=== PATIENT | female | born 1985 | race Caucasian/White ===

== ENCOUNTER → 2016-12-16 | Outpatient (CLI) | payer OTHER ==
[~2016-12-16] MED LIST: ALBUAER2 INH; FEXO1TAB49 PO; ONDA4TAB46 PO; PRENTAB26 PO
--- NOTE | 2016-12-16 08:34 | DIAGNOSTIC IMAGING REPORT ---
ULTRASOUND RIGHT UPPER QUADRANT ABDOMEN CLINICAL HISTORY: Right upper quadrant abdominal pain. COMPARISON STUDY: No priors. TECHNIQUE: Real-time, grayscale, and color flow sonography of the right upper quadrant of the abdomen was performed. Images are reviewed in the transverse and longitudinal planes. FINDINGS: Liver: The liver is normal in size and echotexture. There is no intrahepatic biliary ductal dilatation. The main portal vein is patent. Gallbladder: The gallbladder is normal in appearance. No gallstones are identified. There is no gallbladder wall thickening or pericholecystic fluid. A sonographic Mayer's sign is reportedly absent. The common bile duct measures up to 0.4 cm in diameter. Pancreas: Visualized portions of the pancreatic head and body are normal in appearance. Right kidney: Survey images of the right kidney demonstrate normal size and echotexture. There is no hydronephrosis. Ascites: None. IMPRESSION: Unremarkable sonographic assessment of the right upper quadrant. No gallstones are identified. Electronically signed by: John Jerry M.D. 12/16/2016 8:33 AM Dictated Date/Time: 12/16/2016 8:32 AM
== END | disposition home or self-care (01) ==
LOC: C.ULTR 07:47
PROVIDERS: ATTEND Obstetrics & Gynecology
DX: R10.11 Right upper quadrant pain (principal)

== ENCOUNTER → 2017-05-18 | Outpatient (CLI) | payer OTHER | END | disposition home or self-care (01) | LOC: C.LAB1850 16:23 | PROVIDERS: ATTEND Obstetrics & Gynecology | DX: O20.0 Threatened abortion (principal) ==

== ENCOUNTER → 2017-05-20 | Outpatient (CLI) | payer OTHER | END | disposition home or self-care (01) | LOC: C.LAB 10:50 | PROVIDERS: ATTEND Obstetrics & Gynecology | DX: O20.0 Threatened abortion (principal); Z3A.00 Weeks of gestation of pregnancy not specified ==

== ENCOUNTER 2023-08-14 12:40 | Inpatient (IN) ==
--- NOTE | 2023-08-14 13:28 | History & Physical Report ---
Date of Service August 14, 2023 Assessment & Plan (1) 39 weeks gestation of : Plan: Admit, routine labs Sublingual Cytotec 25 mcg every 4 hours Epidural if patient request Anticipate spontaneous vaginal delivery (2) Maternal asthma complicating : Plan: inhaler if needed (3) Hyperthyroidism affecting : Plan: TSH pending (4) Obesity, Class II, BMI 35-39.9: Plan: Last growth at 36w 4d EFW 3161 g at 72%ile. Normal DICKSON at 11.5 cm. Cephalic presentation. (5) GDM (gestational diabetes mellitus), class A1: Plan: A1c pending q4h glucose checks then hourly in active labor Insulin drip if needed (6) AMA (advanced maternal age) multigravida 35+: Admission and Anticipated Discharge Date Admission Date: August 14, 2023 History of Present Illness Chief Complaint: IOL Primary Care Provider: Jethro Stevens DO Patient is a 37-year-old -0-2-2 at 39 weeks and 1 day by 11-week ultrasound who presents for induction of labor. Upon presentation she denies leaking of fluid or vaginal bleeding. +CTX. Notes good movement. Denies headache, blurry vision, right upper quadrant or epigastric pain. Otherwise feeling well. has been complicated by class II obesity, early A 1 gestational diabetes, diet controlled, advanced maternal age, hyperthyroidism, maternal asthma. She has also been on Tylenol 3 for kidney stone, and being treated with Macrobid for suspected UTI Per [facility] A1GDM dx at 16 weeks-inconsistent testing in . Was not on insulin Last growth at 36 weeks 71%tile 03/28/23-- Some fasting and PP are slightly increased- will follow up next week 04/12/23-- patient has a lot of missed readings. Numbers reported look good.will encourage patient to test 4 times daily 04/20/23-- sugars look good-encouraged patient to test 4 times daily 04/25/23: A1C = 5.4 04/27/23-- a lot of missed sugars- the ones reported are WNL 05/09/23-- Many missed sugars, ones reported are WNL 05/16/23- many missed sugars. Ones reported are WNL 05/22/23-- not consistently reporting 1 FBS elevated and 1 PP elevated- will continue to monitor 05/29/23-- not checking 4 times daily. Overall BS look good 06/06/23- overall blood sugars look good. Not testing every day 06/12/23-- stable 06/19/23- not many sugars reported- stable 06/26/23-- messaged patient to send BS- only very few sugars submitted. 07/11/23- very few sugars submitted- sugars submitted are WNL 07/18/23- very few sugars submitted- sugars are stable 07/28/23- stable; some sugars elevated will review again next week 08/10/23- msg sent to pt to send sugars Allergies Allergy/AdvReac Type Severity Reaction Status Date / Time bee venom protein (honey bee) Allergy Intermediate HIVES Verified 08/05/23 11:14 peanut Allergy Intermediate HIVES Verified 08/05/23 11:14 pollen extracts Allergy Intermediate REPIRATORY Verified 08/05/23 11:14 PROBLEMS doxycycline AdvReac Severe SEVERE Verified 08/05/23 11:14 VOMITING Home Medications Medication Instructions Recorded Confirmed Type albuterol sulfate 90 mcg/actuation 2 puff inhalation DIRECTED PRN 01/10/23 08/14/23 History aerosol inhaler Shortness Of Breath Or Wheezing fluoxetine 40 mg capsule 40 mg PO QAM 01/10/23 08/14/23 History [id number] 1 mg 1 tab PO DAILY 07/06/23 08/14/23 History tablet acetaminophen 300 mg-codeine 30 mg 1 tab PO Q4H #20 tabs 08/05/23 08/14/23 Rx tablet nitrofurantoin 100 mg PO BID #14 caps 08/05/23 08/14/23 Rx monohydrate/macrocrystals 100 mg capsule Patient History Medical History ADHD Anxiety and depression Asthma Gestational diabetes Diet controlled Graves disease Kidney stones Migraine Sciatica Surgical History History of tonsillectomy and adenoidectomy No pertinent past surgical history Family History Mother Heart disease Stroke Social History Smoking Status: Never smoker Hx Alcohol Use: No Hx Substance Use: No Preferred Language: Citizen Of [place] Communication Ability: Effective 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 Technical 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: No Beliefs That Will Affect Care: None marital status: marital status details: Chaitanya Dove Current Living Situation: Spouse Current Living Situation Comment: Lives with and children current occupational status: employed current occupation: [employer] Other Information That Helps Us Care for You: No Feels Safe at Home: Yes Diet: regular Diet Comment: Gestational diabetic Sunscreen Use: No Assistive Devices: None OB History [employer] History See record Review of Systems All systems reviewed & are unremarkable except as noted in HPI & below Physical Exam Constitutional: WD/WN, vitals as above Respiratory: normal respiratory effort, lungs clear to auscultation Cardiovascular: RRR, no murmur, no edema Gastrointestinal (Abdomen): normal bowel sounds, soft, nontender, no hepatosplenomegaly Luis's: 3600g Genitourinary: External genitalia: No masses or lesions seen Cervix: 1-2/50/-3, Results & Data Vital Signs (Past 12 Hours) Vital Signs Temp Pulse Resp BP 08/14/23 13:02 36.7 C 86 20 129/78 08/14/23 12:52 86 129/78 Monitoring External Monitor Baseline 150, moderate variability, positive accelerations no decelerations, category 1 tracing Tocodynamometer Irritable
[2023-08-14] MEDS ORDERED: LIDOCAINE 1% LOCAL 20 ML VIAL INFIL PRN (13:29)
[2023-08-14] MEDS ORDERED: OXYTOCIN 30 UNITS/500 ML BAG IV PRN ×3 (13:29→23:03)
[2023-08-14] MEDS ORDERED: SODIUM CHLORIDE 0.9% 1,000 ML IV PRN (13:31)
[2023-08-14] MEDS ORDERED: DEXTROSE 50% 50 ML SYRINGE IV PRN (13:31)
[2023-08-14] MEDS ORDERED: INSULIN REGULAR 250 UNITS in SODIUM CHLORIDE 0.9% 247.5 ML IV PRN (13:31)
[2023-08-14] MEDS ORDERED: DEXTROSE 5% 1,000 ML IV PRN (13:31)
[2023-08-14] MEDS ORDERED: ALBUTEROL HFA 8 GM INHALER INH PRN (13:40)
[2023-08-14] MEDS: miSOPROStoL 25 MCG TAB SL SCH ×2 (14:26→18:19)
[2023-08-14 14:54] LABS: Hematocrit (blood only) 36.6 % (37.0-47.0); Hemoglobin 12.2 g/dl (12.0-16.0); Mean Corpuscular Hemoglobin 27.2 pg (25.0-34.0); Mean Corpuscular Hgb Conc 33.3 g/dL (32.0-36.0); Mean Corpuscular Volume 81.7 fL (80.0-100.0); Mean Platelet Volume 11.2 fL (9.4-12.4); Platelet Count 252 K/uL (130-400); RDW Coefficient of Variation 13.9 % (11.5-14.5); Red Blood Count 4.48 M/uL (4.20-5.40); White Blood Count 8.87 K/ul (4.8-10.8)
[2023-08-14] MEDS: ACETAMINOPHEN W/CODEINE #3 1 TAB PO SCH ×3 (17:35→22:00)
[2023-08-14] MEDS ORDERED: fentaNYL citrate PF 100 MCG/2 ML VIAL ONE (18:31)
[2023-08-14] MEDS ORDERED: SODIUM CHLORIDE 0.9% PF INJ 10 ML VIAL ONE (18:32)
[2023-08-14] MEDS ORDERED: LIDOCAINE 2%/EPINEPHRINE 1:200,000 20 ML PF ONE (18:32)
[2023-08-14] MEDS ORDERED: ePHEDrine sulfate 50 MG/ML AMP ONE (18:32)
[2023-08-14] MEDS ORDERED: fentaNYL 2MCG/ML ROPIVACAINE 1.25MG/ML 100 ML BAG EPI ONE (18:32)
[2023-08-14] MEDS ORDERED: BUPIVACAINE 0.25% PF 30 ML VIAL ONE (18:32)
[2023-08-14] MEDS: LACTATED RINGER'S 1,000 ML IV PRN ×2 (18:39→19:35)
[2023-08-14] MEDS ORDERED: NALOXONE HCL 1 MG in SODIUM CHLORIDE 0.9% 1,000 ML IV PRN (18:53)
[2023-08-14] MEDS ORDERED: fentaNYL citrate PF 100 MCG/2 ML VIAL EPI PRN (18:53)
[2023-08-14] MEDS ORDERED: LIDOCAINE 2%/EPINEPHRINE 1:200,000 20 ML PF EPI STA (18:53)
[2023-08-14] MEDS ORDERED: NALOXONE HCL 0.4 MG/1 ML VIAL/CARP IV PRN (18:53)
[2023-08-14] MEDS ORDERED: fentaNYL 2MCG/ML ROPIVACAINE 1.25MG/ML 100 ML BAG EPI PRN (18:53)
[2023-08-14] MEDS ORDERED: BUPIVACAINE 0.25% PF 30 ML VIAL EPI PRN (18:53)
[2023-08-14] MEDS ORDERED: diphenhydrAMINE 50 MG/ML VIAL IV PRN (18:53)
[2023-08-14] MEDS ORDERED: LIDOCAINE 2% MPF LOCAL 5 ML VIAL EPI PRN (18:53)
[2023-08-14] MEDS ORDERED: ROPIVACAINE 0.5% PF 5 MG/ML 20 ML VIAL EPI PRN (18:53)
[2023-08-14] MEDS ORDERED: ePHEDrine sulfate 50 MG/ML AMP IV PRN (18:53)
[2023-08-14] MEDS ORDERED: NALBUPHINE HCL INJ 10 MG/ML AMP IV PRN (18:53)
[2023-08-14] MEDS ORDERED: SODIUM CHLORIDE 0.9% PF INJ 10 ML VIAL EPI STA (18:53)
[2023-08-14] MEDS ORDERED: SODIUM CHLORIDE 0.9% PF INJ 10 ML VIAL EPI PRN (18:53)
[2023-08-14] MEDS ORDERED: fentaNYL citrate PF 100 MCG/2 ML VIAL EPI STA (18:53)
[2023-08-14] MEDS ORDERED: BUPIVACAINE 0.25% PF 30 ML VIAL EPI STA (18:53)
--- NOTE | 2023-08-14 18:53 | Anesthesiology Consultation ---
Date of Service August 14, 2023 Assessment & Plan Chart Review Chart Review: Patient NOT seen in Pre Admission Testing and Acceptable Risk for Labor Epidural Consults Requested none ASA ASA3 Proposed Anesthesia Anesthesia Type: Labor Epidural Risk / Benefits Reviewed With: PT / POA / Parent / Guardian, Accepts Plan and Informed Consent Obtained History Height/Weight Height: 5 ft 2 in Weight: 96.615 kg Allergies Allergy/AdvReac Type Severity Reaction Status Date / Time bee venom protein (honey bee) Allergy Intermediate HIVES Verified 08/05/23 11:14 peanut Allergy Intermediate HIVES Verified 08/05/23 11:14 pollen extracts Allergy Intermediate REPIRATORY Verified 08/05/23 11:14 PROBLEMS doxycycline AdvReac Severe SEVERE Verified 08/05/23 11:14 VOMITING Medications Home Medications Medication Instructions Recorded Confirmed Last Taken albuterol sulfate 90 mcg/actuation 2 puff inhalation DIRECTED PRN 01/10/23 08/14/23 Unknown aerosol inhaler Shortness Of Breath Or Wheezing fluoxetine 40 mg capsule 40 mg PO QAM 01/10/23 08/14/23 08/14/23 [id number] 1 mg 1 tab PO DAILY 07/06/23 08/14/23 08/13/23 tablet acetaminophen 300 mg-codeine 30 mg 1 tab PO Q4H #20 tabs 08/05/23 08/14/23 08/14/23 tablet nitrofurantoin 100 mg PO BID #14 caps 08/05/23 08/14/23 08/13/23 monohydrate/macrocrystals 100 mg capsule Active Medications Generic Name Dose Route Start Last Admin Trade Name Freq PRN Reason Stop Dose Admin Acetaminophen/Codeine Phosphate 1 tab 08/14/23 14:00 08/14/23 18:03 Acetaminophen W/Codeine #3 1 Tab PO 09/13/23 13:59 1 tab Q4H EVANS Administration Lactated Ringer's 1,000 mls @ 125 mls/hr 08/14/23 13:29 08/14/23 18:39 Lr IV 08/16/23 13:28 999 mls/hr .Q8H PRN Administration L&D Protocol Protocol Misoprostol 25 mcg 08/14/23 13:50 08/14/23 18:19 Misoprostol 25 Mcg Tab SL 09/13/23 13:49 Not Given Q4H EVANS Past Medical History Medical History ADHD Anxiety and depression Asthma Gestational diabetes Diet controlled Graves disease Kidney stones Migraine Sciatica Past Family History Family History Mother Heart disease Stroke Past Surgical History Surgical History History of tonsillectomy and adenoidectomy No pertinent past surgical history Past Anesthesia History No Hx of Anesthesia Complications and No Family Hx of Anesthesia Complications Social History Smoking Status: Never smoker Hx Alcohol Use: No Hx Substance Use: No substance use type: does not use Review of Systems ROS Unobtainable: All systems reviewed & are unremarkable except as noted in HPI & below Physical Exam Vital Signs Last Vital Signs Temp 36.6 C 08/14/23 14:28 Pulse 78 08/14/23 18:49 Resp 20 08/14/23 14:28 BP 131/79 08/14/23 18:40 Pulse Ox 96 08/14/23 18:49 ENMT Mouth: no TMJ abnormality Thyromental Distance: > or= 3.5 Finger Breadths Mallampati Class: II Neck normal visual inspection and trachea midline; neck extension not limited Respiratory normal respiratory effort Auscultation: lungs clear to auscultation bilaterally Cardiovascular Rate/Rhythm: regular rate and regular rhythm Heart Sounds: no murmur Musculoskeletal Spine: normal cervical ROM Extremities: full ROM of extremities Neurologic moves all extremities Psychiatric Orientation: alert and oriented x 3 Testing Laboratory Results 08/14/23 14:18 Blood Type Cancelled 08/14/23 14:18 Blood Type O Positive 08/14/23 14:18 Antibody Screen Cancelled 08/14/23 14:18 Antibody Screen NEGATIVE 08/14/23 14:18 08/14/23 08/14/23 17:50 13:49 POC Glucose 83 78
--- NOTE | 2023-08-14 20:19 | Obstetrical Progress Note ---
Date of Service August 14, 2023 Assessment & Plan (1) 39 weeks gestation of : Plan: Patient is status post 1 dose of misoprostol 25 mcg sublingually Start oxytocin for augmentation Anticipate spontaneous vaginal delivery (2) Maternal asthma complicating : Plan: inhaler if needed (3) Hyperthyroidism affecting : (4) Obesity, Class II, BMI 35-39.9: Plan: Last growth at 36w 4d EFW 3161 g at 72%ile. Normal DICKSON at 11.5 cm. Cephalic presentation. (5) GDM (gestational diabetes mellitus), class A1: Plan: A1c pending Hourly glucose checks and active labor Insulin drip if needed (6) AMA (advanced maternal age) multigravida 35+: Admission and Anticipated Discharge Date Admission Date: August 14, 2023 Subjective Patient comfortable with epidural at this time, no complaints Physical Exam Genitourinary: heart tracing: Baseline 140, moderate variability, positive accelerations, no decelerations, category 1 tocometer: Irregular contractions Cervix: 7/80/-1 AROM performed, moderate amount of clear fluid, no cord felt, no complication Results & Data Vital Signs (Past 12 Hours) Vital Signs Temp Pulse Resp BP Pulse Ox 08/14/23 13:02 36.7 C 86 20 129/78 08/14/23 20:16 81 98 08/14/23 20:11 81 96 08/14/23 20:06 101 H 96 08/14/23 20:07 92 H 134/82 08/14/23 20:04 108 H 93 08/14/23 20:01 83 95 08/14/23 19:56 77 97 08/14/23 19:57 78 94 08/14/23 19:52 73 123/69 08/14/23 19:51 76 96 08/14/23 19:46 84 97 08/14/23 19:00 20 08/14/23 19:00 36.6 C 20 08/14/23 19:41 87 96 08/14/23 19:36 83 94 08/14/23 19:35 85 127/72 08/14/23 19:31 85 96 08/14/23 19:32 77 125/73 08/14/23 19:29 77 118/72 08/14/23 19:28 75 94 08/14/23 19:26 97 08/14/23 19:26 75 09/25/23 19:26 70 128/72 08/14/23 19:23 77 135/85 93 08/14/23 19:21 85 96 08/14/23 19:20 77 131/82 08/14/23 19:16 88 96 08/14/23 19:09 78 96 08/14/23 19:04 77 96 08/14/23 18:59 73 95 08/14/23 18:54 81 95 08/14/23 18:49 78 96 08/14/23 18:44 84 96 08/14/23 18:40 84 131/79 08/14/23 18:39 90 96 08/14/23 14:28 36.6 C 70 20 120/64 08/14/23 12:52 86 129/78
[2023-08-14] MEDS: NITROFURANTOIN MONOHYDRATE 100 MG CAP PO SCH ×2 (20:59→21:00)
[2023-08-14] MEDS ORDERED: HYDROCORTISONE ACETATE 25 MG SUPP PR PRN (23:03)
[2023-08-14] MEDS ORDERED: DIPHTHERIA/TETANUS/PERTUSSIS Vaccine (Tdap, Age 7+yrs) 0.5mL SYR/VL IM ONE (23:03)
[2023-08-14] MEDS ORDERED: bisacodyL 10 MG SUPP PR PRN (23:03)
--- NOTE | 2023-08-14 23:07 | Delivery Summary ---
Vaginal Delivery Summary Date of Service August 14, 2023 Vaginal Delivery Summary Delivery Note Labor Course: Patient received 1 dose of misoprostol 25 sublingual, and progressed from 1.5 cm to 7 cm. She received an epidural for pain control, AROM was performed, and oxytocin was started for augmentation. I was called when she was complete Delivery Summary: Patient was placed in the dorsal lithotomy position. She was prepped and draped in the usual sterile fashion. Upon maternal pushing the head was delivered atraumatically followed by the anterior shoulders, posterior shoulders then the remainder of the infants body. The was immediately placed on mother's abdomen, dried and stimulated. Delayed cord clamping for 60 seconds was performed. The infants mouth and nose were bulb suctioned by nursing staff. A female was delivered [id number], weight pending with APGARS of 7 at 1 minute and 9 at 5 minutes. The infant was handed off to the awaiting nursing staff. Cord blood gases were not obtained. The placenta delivered intact with three vessel cord at 2259. Placenta was sent to pathology. Thirty units of Pitocin were added to the IV fluid and allowed to run freely. Uterine massage was performed until uterus was deemed firm. Upon inspection of the perineum, cervix were intact. First degree laceration was noted , but hemostatic. Was not repaired as was hemostatic. Upon re-inspection the patient was hemostatic. Uterus again massaged and found to be firm. Needle and sponge counts were correct. Patient was stable and allowed to recover in L&D room. was stable and remained in room with mother in the labor and delivery unit. EBL 200mls
[2023-08-15] MEDS: ACETAMINOPHEN 325 MG TAB PO PRN ×2 (01:34→08:02)
[2023-08-15] MEDS: IBUPROFEN 600 MG TAB PO PRN ×2 (01:35→06:05)
[2023-08-15] MEDS: BENZOCAINE 20% SPRY 85 APPLN/85 GM CAN EXT PRN (01:35)
--- NOTE | 2023-08-15 03:53 | Anesthesia Procedure Note ---
Date of Service August 15, 2023 Anesthesia Post Epidural Note Vital Signs Vital Signs: Temp Pulse Resp BP Pulse Ox O2 Del Method 36.7 C 76 18 110/65 95 Room Air 08/15/23 03:15 08/15/23 03:15 08/15/23 03:15 08/15/23 03:15 08/15/23 03:15 08/15/23 03:15 Pain Intensity Bilateral Episiotomy/Laceration: Pain Intensity: 1 Notes Mental Status: alert / awake / arousable and participated in evaluation Nausea / Vomiting: adequately controlled Pain: adequately controlled Airway Patency, RR, SpO2: stable & adequate BP & HR: stable & adequate Hydration State: stable & adequate Neuraxial Anesthesia: was administered and sensory block is resolving Anesthetic Complications: no major complications apparent Epidural: Removed without complications and With tip intact
[2023-08-15] MEDS: ACETAMINOPHEN W/CODEINE #3 1 TAB PO SCH ×8 (06:10→23:54)
[2023-08-15 06:33] LABS: Hematocrit (blood only) 33.3 % (37.0-47.0); Mean Corpuscular Hemoglobin 27.2 pg (25.0-34.0); Mean Corpuscular Volume 82.4 fL (80.0-100.0); Mean Platelet Volume 11.2 fL (9.4-12.4); Platelet Count 236 K/uL (130-400); RDW Coefficient of Variation 13.8 % (11.5-14.5); RDW Standard Deviation 41.1 fL (36.4-46.3); Red Blood Count 4.04 M/uL (4.20-5.40); White Blood Count 16.46 K/ul (4.8-10.8)
[2023-08-15] MEDS: DOCUSATE SODIUM 100 MG CAP PO SCH ×2 (08:01→19:36)
[2023-08-15] MEDS: PRENATAL VITAMIN 1 TAB PO SCH (08:01)
[2023-08-15] MEDS: NITROFURANTOIN MONOHYDRATE 100 MG CAP PO SCH ×2 (08:01→20:15)
[2023-08-15] MEDS: FLUoxetine HCL 20 MG CAP PO SCH (08:01)
[2023-08-15 08:29] LABS: Estimated Average Glucose 123 mg/dl; Hemoglobin A1C 5.9 % (4.5-5.6)
--- NOTE | 2023-08-15 10:45 | Obstetrical Progress Note ---
Date of Service August 15, 2023 Assessment & Plan (1) Normal course: PPD #1 pt doing well anticipate disch tomorrow Subjective Ambulation: ambulating normally Voiding: no voiding problems Passing Gas:: Yes Diet Tolerance:: regular diet Lochia:: Small Feeding Type:: breast feeding Review of Systems All systems reviewed & are unremarkable except as noted in HPI & below Physical Exam Constitutional WD/WN, vitals as above well developed and well nourished Eyes PERRL, conjunctivae normal, anicteric sclerae Neck trachea midline, no thyromegaly Respiratory normal respiratory effort, lungs clear to auscultation Auscultation: no crackles, no rales and no wheezes Cardiovascular RRR, no murmur, no edema Gastrointestinal (Abdomen) normal bowel sounds, soft, nontender, no hepatosplenomegaly Uterus is below umbilicus Musculoskeletal no cyanosis or clubbing, extremities motor strength 5/5 Skin no rashes, warm and dry Neurologic patellar DTR's 2+ bilat, sensation intact Psychiatric A+Ox3, euthymic affect Genitourinary normal external appearance Results & Data Vital Signs (Past 12 Hours) Vital Signs Temp Pulse Pulse Resp BP BP Pulse Ox 08/15/23 08:55 36.7 C 71 18 119/77 08/15/23 03:15 36.7 C 76 18 110/65 95 08/15/23 01:38 36.7 C 81 18 123/78 97 08/15/23 01:06 36.9 C 82 106/55 L 08/15/23 00:51 77 113/57 L 08/15/23 00:36 75 114/58 L 08/15/23 00:21 70 114/64 08/15/23 00:06 124/70 08/14/23 23:51 78 122/66 08/14/23 23:36 81 118/66 08/14/23 23:21 89 122/74 08/14/23 23:06 94 H 130/65 08/14/23 22:57 89 94 08/14/23 22:56 90 94 08/14/23 22:51 94 H 123/64 94 08/14/23 22:46 99 H 94 O2 Del Method 08/15/23 08:55 Room Air 08/15/23 03:15 Room Air 08/15/23 01:38 Room Air 08/15/23 01:06 08/15/23 00:51 08/15/23 00:36 08/15/23 00:21 08/15/23 00:06 08/14/23 23:51 08/14/23 23:36 08/14/23 23:21 08/14/23 23:06 08/14/23 22:57 08/14/23 22:56 08/14/23 22:51 08/14/23 22:46
[2023-08-15] MEDS ORDERED: bisacodyL 5 MG TABEC PO SCH (20:00)
[2023-08-16] MEDS: ACETAMINOPHEN W/CODEINE #3 1 TAB PO SCH ×3 (03:58→07:36)
[2023-08-16 06:35] LABS: Hematocrit (blood only) 32.3 % (37.0-47.0); Hemoglobin 10.9 g/dl (12.0-16.0)
[2023-08-16] MEDS: DOCUSATE SODIUM 100 MG CAP PO SCH (07:37)
[2023-08-16] MEDS: PRENATAL VITAMIN 1 TAB PO SCH (07:37)
--- NOTE | 2023-08-16 08:05 | Obstetrical Progress Note ---
Date of Service August 16, 2023 Assessment & Plan (1) Normal course: PPD #2 pt doing well d/c home with instructions Results & Data Vital Signs (Past 12 Hours) Vital Signs Temp Pulse Resp BP 08/15/23 23:00 36.8 C 72 18 133/90
[2023-08-16] MEDS: NITROFURANTOIN MONOHYDRATE 100 MG CAP PO SCH (08:27)
[2023-08-16] MEDS: FLUoxetine HCL 20 MG CAP PO SCH (08:27)
[2023-08-16] MEDS: BENZOCAINE 20% SPRY 85 APPLN/85 GM CAN EXT PRN (10:09)
--- OUTSIDE RECORDS SUMMARY | 2023-08-25 07:28 | External Medical Summary | Summary of Care ---
Author Name Unknown Organization [facility] Address [address] [facility] [place] [address] Phone [phone] Care Team Providers Care Dealer Sales Rep Name Role Phone Mendoza Stevenshazel Floresrip Primary Care Provider Reason for Visit * Reason Comments Return Visit Non Stress Test Encounter Details Date Type Department Care Team Description 08/10/2023 Office Visit Gynecology/Obstetrics Hola'mike Gibson [address] [place] [address] Diann Spain CRNP [address] [place] [id number] Olamide Gibson Stress Tests [facility] [address] [place] [address] Supervision of high risk in third trimester*; Obesity in , antepartum; Multigravida of advanced maternal age in third trimester; Hyperthyroidism affecting in third trimester; Anxiety during ; Maternal asthma complicating ; Diet controlled gestational diabetes mellitus (GDM) in third trimester; Calculus of kidney affecting in third trimester Allergies Active Allergy Reactions Severity Noted Date Comments Doxycycline 01/27/2023 Pollen 05/29/2013 Peanut Oil 05/29/2013 documented as of this encounter (statuses as of 08/10/2023) Medications Medication Sig Dispensed Refills Start Date End Date Status Albuterol Sulfate HFA 108 (90 Base) MCG/ACT Inhalation Aerosol Solution Inhale 2 Puffs by mouth every 4 hours as needed for Cough, Shortness of Breath or Wheezing. 18 g 3 11/26/2021 Active FLUoxetine HCl 40 MG Oral Capsule (PROzac) Take by mouth 1 Capsule in the morning. 30 Capsule 11 07/26/2022 Active 28-0.8 MG Oral Tablet Take by mouth. 0 Active OneTouch Verio Flex System w/Device KitIndications:Gesta tional diabetes mellitus (GDM), antepartum, gestational diabetes method of control unspecified Use as directed. Check blood sugars 4x/day 1 Kit 0 03/06/2023 Active OneTouch Verio In Vitro Strip (Glucose Blood)Indications:Ge stational diabetes mellitus (GDM), antepartum, gestational diabetes method of control unspecified Use to check blood sugar four times daily: Fasting in the morning, then one hour after breakfast, one hour after lunch and one hour after dinner. 200 Strip 6 03/20/2023 Active MangoPlateTouch Delica Lancets 33GIndications:Gesta tional diabetes mellitus (GDM), antepartum, gestational diabetes method of control unspecified Use to check blood sugar four times daily: Fasting in the morning, then one hour after breakfast, one hour after lunch and one hour after dinner. 200 Each 6 03/20/2023 Active Vitron-C 65-125 MG Oral Tablet (Iron-Vitamin C 65-125 mg per tab) Take 1 Tablet by mouth in the morning and 1 Tablet before bedtime. 90 Tablet 1 06/01/2023 Active Docusate Sodium 100 MG Oral Capsule (Colace) Take 1 Capsule by mouth 2 times a day as needed for Constipation. 60 Capsule 5 06/01/2023 Active Magnesium 400 MG Oral Capsule Take 1 Capsule by mouth in the morning. 0 Active Acetaminophen-Codein e 300-30 MG Oral TabletIndications:De ntal contusion, initial encounter Take 1 Tablet by mouth every 4 hours as needed for Pain, Severe. 30 Tablet 0 07/05/2023 Active Cephalexin 250 MG Oral Tablet Take by mouth 2 times a day. 0 Active documented as of this encounter (statuses as of 08/10/2023) Active Problems Problem Noted Date Calculus of kidney affecting i n third trimester 08/03/2023 Health counseling 06/29/2023 Overview: Current needs or questions Patient denies having any current needs or questions 06/29/2023 Renay Hare RN 06/29/2023 Problem Action Taken Date entered Entered by Date resolved Current needs or questions Patient denies having any current needs or questions 07/27/2023 Taylor Patel RN 07/27/2023 Problem Action Taken Date entered Entered by Date resolved Current needs or questions Patient denies having any current needs or questions 08/03/2023 Renay Hare RN 08/03/2023 Problem Action Taken Date entered Entered by Date resolved Current needs or questions Patient denies having any current needs or questions 08/10/2023 Renay Hare RN 08/10/2023 GDM (gestational diabetes mellitus) 02/18 Overview: Diagnosed at 16 weeks Nutrition consult ordered A1C ordered Lab Results Component Value Date/Time 50-G GESTATIONAL GLUCOSE, 1 HOUR - [facility] 170 (H) 02/27/2023 12:25 PM 100-G GESTATIONAL GLUCOSE, 1 HOUR - [facility] 181 (H) 03/06/2023 08:25 AM 100-G GESTATIONAL GLUCOSE, 2 HOUR - [facility] 177 (H) 03/06/2023 09:22 AM 100-G GESTATIONAL GLUCOSE, 3 HOUR - [facility] 82 03/06/2023 10:20 AM 100-G GESTATIONAL GLUCOSE, FASTING - [facility] 89 03/06/2023 07:20 AM HEMOGLOBIN A1C - [facility] 5.6 04/08/2022 07:10 AM She reports her home blood glucose as following: DATE Fasting 1 hr after Breakfast 1 hr after Lunch 1 hr after Dinner 03/12 86 150 125 151 03/13 87 155 160 150 03/14 88 140 126 150 03/15 82 130 162 138 03/16 85 142 142 150 03/17 80 140 145 150 03/18 x x x x 03/19 x x x x 03/20/23 88 x x x 03/20/23: MFM ADAPT consult complete. Enrolled in Current Health. Instructions provided to report blood sugars each week for MFM review 03/28/23-- Some fasting and PP are slightly increased- will follow up next week 04/12/23-- patient has a lot of missed readings. Numbers reported look good.will encourage patient to test 4 times daily 04/20/23-- sugars look good-encouraged patient to test 4 times daily 04/25/23: A1C = 5.4 04/27/23-- a lot of missed sugars- the ones reported are WNL 05/09/23-- Many missed sugars, ones reported are WNL 05/16/23- many missed sugars. Ones reported are WNL 05/22/23-- not consistently reporting 1 FBS elevated and 1 PP elevated- will continue to monitor 05/29/23-- not checking 4 times daily. Overall BS look good 06/06/23- overall blood sugars look good. Not testing every day 06/12/23-- stable 06/19/23- not many sugars reported- stable 06/26/23-- messaged patient to send BS- only very few sugars submitted. 07/11/23- very few sugars submitted- sugars submitted are WNL 07/18/23- very few sugars submitted- sugars are stable 07/28/23- stable; some sugars elevated will review again next week 08/10/23- msg sent to pt to send sugars Last Assessment & Plan: Working with [facility]APT. , supervision, high-risk 2022 Last Assessment & Plan: Starr reports vaginal discharge and pruritus in the setting of recent antibiotic use. She reported this to the team but was told a culture was negative and therefore she did not warrant treatment, however the only culture I could locate was a urine culture. Since then, she has tried OTC Monistat also without relief. Suggested she reach out to the OB team for further evaluation as physical exam and/or vaginal swab may be needed to confirm diagnosis of BV vs yeast. Also encouraged more regular reporting of sugars as hyperglycemia is also a risk factor for chronic yeast infection. Sugars submitted appear to be within the target range (top normal for postprandials). Obesity in , antepartum 023 Overview: BMI: 37.3 Class II obesity Lab Results Component Value Date/Time 50-G GESTATIONAL GLUCOSE, 1 HOUR - [facility] 170 (H) 02/27/2023 12:25 PM 100-G GESTATIONAL GLUCOSE, 1 HOUR - [facility] 181 (H) 03/06/2023 08:25 AM 100-G GESTATIONAL GLUCOSE, 2 HOUR - [facility] 177 (H) 03/06/2023 09:22 AM 100-G GESTATIONAL GLUCOSE, 3 HOUR - [facility] 82 03/06/2023 10:20 AM 100-G GESTATIONAL GLUCOSE, FASTING - [facility] 89 03/06/2023 07:20 AM HEMOGLOBIN A1C - [facility] 5.6 04/08/2022 07:10 AM Baseline Preeclampsia Labs Lab Results Component Value Date/Time PLATELET AUTO - [facility] 338 02/01/2023 10:01 AM Last Assessment & Plan: I reviewed the ultrasound. The overall estimated weight is consistent with the 51st percentile for the gestational age and the anatomy that was visualized appears unremarkable. The amniotic fluid volume is normal. AMA (advanced maternal age) multigravida 35+ 02/01/2023 Overview: Patient will be age 37 at time of delivery Low risk NIPT Declined genetic consult at this time Last Assessment & Plan: She presents for a anatomy survey. She has a history of AMA, class II obesity, hyperthyroidism (no current medications), asthma, and gestational diabetes. Labs reviewed: -- cffDNA low risk for aneuploidy -- early 1 hour GCT elevated, 3 hour GTT elevated - has received GDM consult -- TSH 0.48 on 02/27/23 - follows with endocrine and plans to obtain labs tomorrow We reviewed the results of today's ultrasound. The estimated weight is appropriate for gestational age. The visualized anatomy is unremarkable in appearance. Some structures are suboptimally imaged secondary to position and poor acoustic windows. The amniotic fluid amount appears normal. We discussed that ultrasound is not able to identify all anomalies, but it is reassuring that no anomalies were seen today. Hyperthyroidism affecting 01/18 Overview: Hyperthyroid / Graves disease Did have iodine treatment in past TSH Results: Lab Results Component Value Date/Time TSH - [facility] 0.48 02/27/2023 12:25 PM TSH - [facility] 0.41 02/01/2023 10:01 AM TSH - [facility] 2.07 12/01/2022 06:55 AM TSH - [facility]IDE [facility] 0.01 (A) 01/20/2021 12:00 AM TSH - [facility] <0.01 (A) 12/16/2020 12:00 AM TSH - [facility]IDE [facility] 0.01 (A) 12/11/2020 12:00 AM Managed by endocrinology, no meds currently. They are monitoring monthly labs. Last Assessment & Plan: Recommend to check TRAb and TSI now as may affect management. Will also refer to pediatrics. Anxiety during 02/01/2023 Overview: Anxiety Currently managed with Prozac Reports a stable mood in . Denies any suicidal or homicidal ideation. Reports she has a good support system at home. Last Assessment & Plan: ANXIETY AND DEPRESSION CONSIDERATIONS: Untreated maternal anxiety and depression may be associated with an increased risk of multiple poor obstetrical outcomes including miscarriages, low weight, and delivery. Women with a history of anxiety or depression are at risk for recurrence both during and/or the period. Studies of first-trimester SSRI exposure do not demonstrate consistent data to support an increased risk for structural malformations. Anti-anxiety or depression medications have been associated with transient effects (withdrawal syndrome). RECOMMENDATIONS: Mental illness can and should be treated during when the benefits of treatment outweigh potential risks. Referral to behavioral health services as clinically indicated. Maternal asthma complicating 0 02/01/2023 Overview: Asthma related to summer allergies, dust, pollen Managed with Albuterol as needed 03/20/23 last albuterol use: 6 months ago Denies hospitalizations or intubations in prior Last Assessment & Plan: CONSIDERATIONS: Asthma symptoms may improve, worsen or remain unchanged in severity in . Asthma is generally managed the same in as in the non- patient, as asthma-control medications are considered safe in . If asthma is well-controlled with medications prior to , it is recommended to continue the same medication regimen during . A patient should seek medical care immediately if an asthma flare does not respond to therapy. Mild and well-controlled moderate asthma can be associated with excellent maternal and outcomes. Severe and poorly controlled asthma may be associated with increased morbidity and mortality. Asthma management includes monitoring of lung function with pulmonary function testing (when indicated), avoidance of triggers (such as tobacco smoke, mold, dust mite exposure, animal dander and cockroaches), and a step-care approach to pharmacologic therapy based on the severity of the patient's asthma. RECOMMENDATIONS: Inhaled corticosteroids are the mainstay of therapy for all patients except those with intermittent asthma. o If patients are routinely requiring rescue inhaler (such as albuterol, Ventolin, ProAir, Atrovent, or Proventil) use more than twice weekly, we recommend adding a low-dose inhaled corticosteroid. [Pulmicort (budesonide) is preferred to use in .] o If patients are routinely requiring rescue inhaler use daily, we recommend adding a combined low-dose inhaled corticosteroid/long-acting beta-agonist [such as Advair (fluticasone/salmeterol) or Symbicort (budesonide/formoterol)] or a medium dose inhaled corticosteroid. o Patient should discuss these treatment options with her primary OB provider or PCP. Typically, patients do not need stress dose steroids as long as they continue their usual dose perioperatively (or during labor) and do not have primary renal failure or other problems with the pituitary axis. Medications such as prostaglandin F2a (including Hemabate), ergonovine, and indomethacin (in patients who are aspirin allergic) should be used with caution. Patients with moderate or severe persistent asthma should have Maternal- Medicine ultrasound for anatomy at 19-20 weeks. surveillance with growth ultrasounds and non-stress tests should be considered starting at 32 weeks. Family history of VA (myocardial infarct ion) 02/18/2021 Hyperthyroidism 02/18/2021 Anxiety 02/18/2021 Graves disease 02/18/2021 Other allergic rhinitis 07/30/2001 Overview: ICD-10 update of inactive term Asthma with severity to be determined Overview: ICD-10 update of inactive term ATTN DEFIC NONHYPERACT 01/24/2000 EXT ASTHMA W-O STAT ASTH Dysmenorrhea Estimated Date of Delivery Comme nts Yes 08/20/2023 Based on Ultraso und documented as of this encounter (statuses as of 08/10/2023) Resolved Problems Problem Noted Date Resolved Date History of delivery 02/01/202301/18 Overview: 36 wks History of gestational diabe olamide in prior , currently 02/01/2023 03/06/2023 Overview: Diet controlled Encounter for supervision of other normal pregna ncy 05/29/2013 10/10/2013 Overview: Transfer of Care; Records received 02/22/13: glucose 95; Hep BsAg neg; Hep C ab-nonreactive; HIV nonreactive; RPR nonreactive; rubella immune; O+, antibody negative 03/05/13- chlamydia negative, gonorrhea negative Patient received flu vaccine. 08/08/2013 Charlee Souza RN GBS Negative KIRSTEN Rios, MARGARITA 09/30/2013 ICD-10 update of inactive term documented as of this encounter (statuses as of 08/10/2023) Immunizations Name Administration Dates Next Due Seasonal Influenza, PF, 6 mo ns & Above, IM , (Flulaval) 08/03/2023,09/23/2020 Seasonal Influenza, Split, IIV3, With Preserve, Inj 08/08/2013 TDAP (age 10 and older)(Boostrix) 06/01/2023,10/2016 documented as of this encounter Social History Tobacco Use Types Packs/Day Years Used Date Smoking Tobacco: Never Smokeless Tobacco: Never Alcohol Use Standard Drinks/Week Comments Yes 0 (1 standard drink = 0.6 oz pur e alcohol) occ Food Insecurity Answer Date Recorded Within the past 12 months, y ou worried that your food would run out before you got money to buy more. Never true 06/01/2023 Within the past 12 months, t he food you bought just didn't last and you didn't have money to get more. Never true 06/01/2023 Estimated Date of Delivery Comme nts Yes 08/20/2023 Based on Ultraso und Sex Assigned at Date Recorded Female 01/26/2023 1:[address] Job Start Date Occupation Industry Not on file Not on file Not on file documented as of this encounter Last Filed Vital Signs Vital Sign Reading Time Taken Comments Blood Pressure - - Pulse - - Temperature - - Respiratory Rate - - Oxygen Saturation - - Inhaled Oxygen Concentration - - Weight 96.6 kg (213 lb) 08/10/2023 8:34 AM EDT Height - - Body Mass Index 38.96 08/03/2023 8:37 AM EDT documented in this encounter Progress Notes * KIRSTEN Fox - 08/10/2023 8:45 AM EDT Has induction next Monday. She was seen at [facility] 2 days ago, ruled out ROM. Prescribed abx for UTI. Has another kidney stone, on Tylenol w/codeine. Baby moving well. No leaking/bleeding. Still w/contractions, desires cervical exam. 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 Name of business systems administrator: Ban Rhodes LPN ASSESSMENT assessment with Non-stress Test completed on 08/10/2023 at 38.4 weeks gestation for indicationof obesity heart baseline: 140 bpm Variability: Moderate Decelerations: absent Accelerations: absent Contractions: Present q5-10 mins, lasting 60-80 sec, pt appears comfortable NST start time: 827 NST stop time: 901 NST strip reviewed, interpreted, and approved by OB provider, KIRSTEN Reed . NST strip stored in clinic storage file BPP for inconsistent NST tracing due to movement, 06/27 KIRSTEN Reed documented in this encounter Nursing Notes * Renay Hare RN - 08/10/2023 9:23 AM EDT Patient seen by [facility] Monitor Technician. Patient denies any questions or concerns. documented in this encounter Plan of Treatment Upcoming Encounters Date Type Specialty Care Team Description 08/17/2023 Office Visit Gynecology Obstetrics Diann Spain CRNP [address] [facility] [place] [address] Gibson, Non Stress Tests Pietro [address] [place] [address] 08/18/2023 Office Visit Urology Ulises Landaverde MD [address] [place] [address] [place] [phone] Health Maintenance Due Date Last Done Comments COVID-19 Vaccine (#1) 03/05/1986 Pneumococcal Vaccine: Pediatrics (0 to 5 Years) and At-Risk Patients (6 to 64 Years) (1 - PCV) 1991 Depression Screening 09/23/2021 09/23/2020 *SPIROMETRY ONCE FOR ASTHMA-ADULT 10/13/2022 Pap Smear 02/01/2026 02/01/2023 Diabetes Screening 04/25/2026 04/25/2023, 0 04/08/2022, 06/19/2021, Additional history exists Cervical Cancer Screening 02/02/2028 HPV/Co-Test 02/02/2028 02/01/2023 DTaP,Tdap,and Td Vaccines (8 - Td or Tdap) 06/01/2033 06/01/2023, 10/31/2016, 07/04/1997, Additional history exists Hepatitis B Completed 02/25/1997, 08/21, 07/02/1996 Hepatitis C Screening Completed 02/01/2023 , 02/01/2023, 02/01/2023 Influenza Vaccine (FLU shot) Completed , 09/23/2020, 08/09/2016, Additional history exists GARDASIL-HPV IMMUNIZATION SERIES Aged Out No longer eligible based on patient's age to complete this topic MENINGOCOCCAL (MENACTRA/MENVEO) Aged Out No longer eligible based on patient's age to complete this topic documented as of this encounter Medical Devices Not on filedocumented as of this encounter Results * US BPP W/O NON-STRESS TEST (08/10/2023 12:31 PM EDT) Anatomical Region Laterality Modality Abdomen, Body Ultrasound 08/10/2023 1:44 PM EDT Impressions 08/10/2023 1:46 PM EDT IMPRESSION: 1. BPP score: 8 of 8. 2. Normal DICKSON. 3. Vertex presentation. I have personally reviewed this examination and agree with the resident/fellow physician's interpretation. Narrative 08/10/2023 1:46 PM EDT EXAM: US BPP W/O NON-STRESS TEST - 08/10/2023 12:31 pm HISTORY: inconsistent NST tracing, maternal obesity TECHNIQUE: Sonographic examination performed. COMPARISON: None. FINDINGS: GENERAL : Banks Presentation: Vertex heart rate: 138 bpm DICKSON: 21.7 cm which is between the 50th and 95th percentiles for this stage of . BIOPHYSICAL PROFILE breathing movement: 2 Gross body movement: 2 tone: 2 Qualitative AFV: 2 Total BPP score: 8 of 8. Procedure Note Hugo Gravin MD - 08/10/2023 EXAM: US BPP W/O NON-STRESS TEST - 08/10/2023 12:31 pm HISTORY: inconsistent NST tracing, maternal obesity TECHNIQUE: Sonographic examination performed. COMPARISON: None. FINDINGS: GENERAL : Banks Presentation: Vertex heart rate: 138 bpm DICKSON: 21.7 cm which is between the 50th and 95th percentiles for this stageof . BIOPHYSICAL PROFILE breathing movement: 2 Gross body movement: 2 tone: 2 Qualitative AFV: 2 Total BPP score: 8 of 8. IMPRESSION IMPRESSION: 1. BPP score: 8 of 8. 2. Normal DICKSON. 3. Vertex presentation. I have personally reviewed this examination and agree with the resident/fellow physician's interpretation. Diann Sharif Backer KIRSTEN RAD ULTRASO UND documented in this encounter Visit Diagnoses Diagnosis Supervision of high risk in third trimester- Primary Unspecified high-risk Obesity in , antepartum Obesity complicating , childbirth, or the puerperium, antepartum condition or complication Multigravida of advanced maternal age in third trimester Hyperthyroidism affecting in third trimester Anxiety during Maternal asthma complicating Other current maternal conditions classifiable elsewhere, complicating , childbirth, or the puerperium, unspecified as to episode of care Diet controlled gestational diabetes mellitus (GDM) in third trimester Calculus of kidney affecting in third trimester Supervision of high risk in third trimester Unspecified high-risk Obesity in , antepartum Obesity complicating , childbirth, or the puerperium, antepartum condition or complication documented in this encounter Care Teams Dealer Sales Rep Relationship Specialty Start Date End Date Jethro Stevens DO [address] [place] [id number] PCP - General Family Medicine 02/18/21 documented as of this encounter
--- OUTSIDE RECORDS SUMMARY | 2023-08-25 07:28 | External Medical Summary | Summary of Care ---
Author Name Unknown Organization [facility] Address [address] [facility] [address] Phone [phone] Care Team Providers Care Sales Ledger Clerk Name Role Phone Mendoza Stevensvor Reji Primary Care Provider Encounter Details Date Type Department Care Team Description 08/08/2023 Result Scan Unspecified Department Seng Hodge MD [address] [place] [address] <No scans attached> Allergies Active Allergy Reactions Severity Noted Date Comments Doxycycline 01/27/2023 Pollen 05/29/2013 Peanut Oil 05/29/2013 documented as of this encounter (statuses as of 08/08/2023) Medications Medication Sig Dispensed Refills Start Date [...] Oral Tablet Take by mouth. 0 Active [employer] Intelligenceio Flex System w/Device KitIndications:Gesta tional diabetes mellitus (GDM), antepartum, gestational diabetes method of control unspecified Use as directed. Check blood sugars 4x/day 1 Kit 0 03/06/2023 Active Rainmaker [employer] Verio In Vitro Strip (Glucose Blood)Indications:Ge stational diabetes mellitus (GDM), antepartum, gestational diabetes method of control unspecified Use to check blood sugar four times daily: Fasting in the morning, then one hour after breakfast, one hour after lunch and one hour after dinner. 200 Strip 6 03/20/2023 Active OneTouch Delica Lancets 33GIndications:Gesta tional diabetes mellitus (GDM), [...] as of this encounter (statuses as of 08/08/2023) Active Problems Problem Noted Date Calculus of [...] or questions 08/03/2023 Renay Hare RN 08/03/2023 GDM (gestational diabetes mellitus) 02/18 Overview: Diagnosed [...] 03/20/23: MFM [facility] consult complete. Enrolled in Prevently. Instructions provided to report blood sugars each [...] sugars elevated will review again next week Last Assessment & Plan: Working with [facility]. , supervision, high-risk 2022 Last Assessment & [...] starting at 32 weeks. Family history of [place] (myocardial infarct ion) 02/18/2021 Hyperthyroidism 02/18/2021 Anxiety 02/18/2021 Graves disease 02/18/2021 Other allergic rhinitis 07/30/2001 Overview: ICD-10 update of inactive term Asthma with severity to be determined Overview: ICD-10 update of inactive term ATTN DEFIC NONHYPERACT 01/24/2000 EXT ASTHMA W-O STAT ASTH Dysmenorrhea Estimated Date of Delivery Comme nts Yes 08/20/2023 Based on Ultraso und documented as of this encounter (statuses as of 08/08/2023) Resolved Problems Problem Noted Date Resolved Date [...] negative Patient received flu vaccine. 08/08/2013 Charlee Souza, RN GBS Negative KIRSTEN Rios, CNM 09/30/2013 ICD-10 update of inactive term documented as of this encounter (statuses as of 08/08/2023) Immunizations Name Administration Dates Next Due Seasonal [...] on file documented as of this encounter Plan of Treatment Upcoming Encounters Date Type Specialty Care Team Description 08/10/2023 Office Visit Gynecology Obstetrics Diann Spain CRNP [address] [place] [address] Gibson, Non Stress Tests Pietro [address] [place] [address] 08/17/2023 Office Visit Gynecology Obstetrics Diann Spain CRNP [address] [place] [address] Arthur, Non Stress Tests Pietro [address] [place] [address] 08/18/2023 Office Visit Urology Ulises Landaverde MD [address] [place] [address] Health Maintenance Due Date Last Done Comments [...] Not on filedocumented as of this encounter Procedures Procedure Name Priority Date/Time Associated Diagnosis Comments OUTSIDE LAB RESULTS 08/08/2023 documented in this encounter Results * OUTSIDE LAB RESULTS (08/08/2023) 08/08/2023 Seng Hodge MD LABORATORY documented in this encounter Care Teams Sales Ledger Clerk Relationship Specialty Start Date End Date Jethro Stevens DO [address] [place] [address] PCP - General Family Medicine 02/18/21 documented as of this encounter
--- OUTSIDE RECORDS SUMMARY | 2023-08-25 07:28 | External Medical Summary | Summary of Care ---
Author Name Unknown Organization [facility] Address [address] [facility] [place] [address] Phone [phone] Care Team Providers Care Modern Dancer Name Role Phone Rodney Jethro Reji Primary Care Provider Reason for Visit * Reason Onset Date Comments Leaking Fluid 08/08/2023 Review with prov ider media relations coordinator Encounter Details Date Type Department Care Team Description 08/08/2023 Telephone Gynecology/Obstetrics [facility] [address] [place] [address] Seng Hodge MD [address] [place] [address] Leaking Fluid (Review with provider media relations coordinator) Allergies Active Allergy Reactions Severity Noted Date [...] week Last Assessment & Plan: Working with [facility]. [...] starting at 32 weeks. Family history of [place] (myocardial infarct ion) 02/18/2021 Hyperthyroidism 02/18/2021 Anxiety [...] Charlee Souza RN GBS Negative KIRSTEN Rios, SAROJM 09/30/2013 ICD-10 update of inactive term documented as of this encounter (statuses as of 08/08/2023) Immunizations Name Administration Dates Next Due DT - Diptheria/Tetanus (PEDS) 01/24/1991, 987,03/21/1986 DTP Vaccine 01/23/1986,1985 Haemophilius B (HIB), unspecified 03/30/1989 Hepatitis B, 0-19 yrs 02/25/1997,09/11/1996,06/20 MMR - Measles/Mumps/Rubella Vaccine 01/24/1991,1 12/05/1986 OPV - Polio Virus Vaccine (Oral) 991,09/26/1986,01/23/1986,1985 Seasonal Influenza, PF, 6 mo ns & Above, IM , (Flulaval) 08/03/2023,09/23/2020 Seasonal Influenza, Split, I IV3, With Preserve, Inj 08/08/2013 TD - Tetanus/Diptheria (ADULT) 07/04/1997 TDAP (age 10 and older)(Boostrix) 06/01/2023,10/2016 documented [...] on file documented as of this encounter Miscellaneous Notes * Telephone Encounter - Renay Hare RN - 08/08/2023 12:11 PM EDT Chantale spoke to Dr. Hodge he would like patient to come over for evaluation to l and D. Patient called and made aware. She is leaving now, will be there within an hour. Patient gonzalez to go straight to L and d, she verbalized understanding. Called L and D and made them aware. * Telephone Encounter - Renay Hare RN - 08/08/2023 11:54 AM EDT Attempted to call Dr. Hodge, he is in a delivery and will call me back niko * Telephone Encounter - Renay Hare RN - 08/08/2023 11:47 AM EDT Patient calling in 38w2d ? ROM Big gush this morning around 6:30 Put a pad on and since then has had consistently leaking since. Pad is wet not soaked. Patient is feeling contractions every 6-8 minutes, but also on tyelnol 3 due to kidney stones. Decreased movement. Last movement earlier this morning. No bleeding Will review with oncall Patient can be reached at [phone] documented in this encounter Plan of Treatment Upcoming Encounters Date Type Specialty Care Team Description 08/08/2023 Telemedicine Endocrinology Vannesa Puente PA-C [address] [facility] [address] 08/10/2023 Office Visit Gynecology Obstetrics Backer, KIRSTEN Royal [address] [place] [address] Gibson, Non Stress Tests Pietro [address] [place] [address] 08/17/2023 Office Visit Gynecology Obstetrics Backer, KIRSTEN Royal [address] [place] [address] Gibson, Non Stress Tests Pietro [address] [place] [address] 08/18/2023 Office Visit Urology Ulises Landaverde MD [address] [place] [address] [place] [address] Health Maintenance Due Date Last Done Comments [...] Not on filedocumented as of this encounter Care Teams Modern Dancer Relationship Specialty Start Date End Date Jethro Stevens DO [address] [place] [address] PCP - General Family Medicine 02/18/21 documented as of this encounter
--- OUTSIDE RECORDS SUMMARY | 2023-08-25 07:28 | External Medical Summary | Summary of Care ---
Author Name Unknown Organization [facility] Address [address] [facility] [place] [address] Phone [phone] Care Team Providers Care Welding Setter Name Role Phone Rodney Jethro Reji Primary Care Provider Reason for Visit * Reason Onset Date Comments Leaking Fluid 08/08/2023 Review with prov ider vp transportation Encounter Details Date Type Department Care Team Description 08/08/2023 Telephone Gynecology/Obstetrics [facility] [address] [place] [address] Seng Hodge MD [address] [place] [address] Leaking Fluid (Review with provider vp transportation) Allergies Active Allergy Reactions Severity Noted Date [...] starting at 32 weeks. Family history of [place] (myocardial infarct ion) 02/18/2021 Hyperthyroidism 02/18/2021 Anxiety [...] Charlee Souza RN GBS Negative KIRSTEN Rios, CNM 09/30/2013 [...] this morning. No bleeding Will review with onctien Patient can be reached at [phone] documented in this encounter Plan of Treatment Upcoming Encounters Date Type Specialty Care Team Description 08/08/2023 Telemedicine Endocrinology Vannesa Puente PA-C [address] [place] [address] 08/10/2023 Office Visit Gynecology Obstetrics BackerDiann CRNP [address] [place] [address] Arthur Non Stress Tests Pietro [address] [place] [address] 08/17/2023 Office Visit Gynecology Obstetrics BackDiann martínez CRNP [address] [facility] [address] Arthur Non Stress Tests Pietro [address] [facility] [place] [address] 08/18/2023 Office Visit Urology Ulises Landaverde MD [...] filedocumented as of this encounter Care Teams Welding Setter Relationship Specialty Start Date End Date Jethro Stevens DO [address] [place] [address] PCP - General Family Medicine 02/18/21 documented as of this encounter
--- OUTSIDE RECORDS SUMMARY | 2023-08-25 07:29 | External Medical Summary | Summary of Care ---
Author Name Unknown Organization [facility] Address [address] [facility] [place] [address] Phone [phone] Care Team Providers Care Horologist Name Role Phone Mendoza Stevensvojossue Mendoza Primary Care Provider Reason for Referral * Evaluate & Treat - Unlimited Visits (Within 3 days (urgent)) - Authorized Specialty Diagnoses / Procedures Referred By Sharlene rivera Referred To Contact Urology Diagnoses Calculus of kidney affecting in third trimester Diann Spain CRNP [address] [place] [address] Referral ID Status Reason Start Date Expiration Date Visits Requested Visits Authorized [id number] Authorized Specialty Services Required 08/03/2023 999 999 Question Answer Referral Priority Within 3 days (urgent) What is the patient being referred for? Kidney stone/calculi Has Imaging been done? No Comments Pt Reason for Visit * Reason Onset Date Comments Healthy Beginnings Return Non Stress Test Medication Administration 08/03/2023 Flu an d/or Pneumo Inj Encounter Details Date Type Department Care Team Description 08/03/2023 Office Visit Gynecology/Obstetrics Opal Gibson [address] [place] [address] Diann Spain CRNP [address] [place] [address] Olamide Gibson Stress Tests Pietro [address] [place] [address] Supervision of high risk in third trimester*; Obesity in , antepartum; Multigravida of advanced maternal age in third trimester; Hyperthyroidism affecting in third trimester; Anxiety during ; Maternal asthma complicating ; Diet controlled gestational diabetes mellitus (GDM) in third trimester; Need for prophylactic vaccination and inoculation against influenza; Calculus of kidney affecting in third trimester Allergies Active Allergy Reactions Severity Noted Date Comments Doxycycline 01/27/2023 Pollen 05/29/2013 Peanut Oil 05/29/2013 documented as of this encounter (statuses as of 08/03/2023) Medications Medication Sig Dispensed Refills Start Date [...] Oral Tablet Take by mouth. 0 Active [employer] Yink[employer] networkio Flex System w/Device KitIndications:Gesta tional diabetes mellitus (GDM), antepartum, gestational diabetes method of control unspecified Use as directed. Check blood sugars 4x/day 1 Kit 0 03/06/2023 Active [employer] Verio In Vitro Strip (Glucose Blood)Indications:Ge stational diabetes mellitus (GDM), antepartum, gestational diabetes method of control unspecified Use to check blood sugar four times daily: Fasting in the morning, then one hour after breakfast, one hour after lunch and one hour after dinner. 200 Strip 6 03/20/2023 Active [employer] Delica Lancets 33GIndications:Gesta tional diabetes mellitus (GDM), [...] as of this encounter (statuses as of 08/03/2023) Active Problems Problem Noted Date Calculus of [...] starting at 32 weeks. Family history of [place] (myocardial infarct ion) 02/18/2021 Hyperthyroidism 02/18/2021 Anxiety 02/18/2021 Graves disease 02/18/2021 Other allergic rhinitis 07/30/2001 Overview: ICD-10 update of inactive term Asthma with severity to be determined Overview: ICD-10 update of inactive term ATTN DEFIC NONHYPERACT 01/24/2000 EXT ASTHMA W-O STAT ASTH Dysmenorrhea Estimated Date of Delivery Comme nts Yes 08/20/2023 Based on Ultraso und documented as of this encounter (statuses as of 08/03/2023) Resolved Problems Problem Noted Date Resolved Date [...] as of this encounter (statuses as of 08/03/2023) Immunizations Name Administration Dates Next Due Seasonal [...] Sign Reading Time Taken Comments Blood Pressure 120/76 08/03/2023 8:37 AM EDT Pulse - - Temperature - - Respiratory Rate - - Oxygen Saturation - - Inhaled Oxygen Concentration - - Weight 96.6 kg (213 lb) 08/03/2023 8:37 AM EDT Height 157.5 cm (5' 2") 08/03/2023 8:37 AM EDT Body Mass Index 38.96 08/03/2023 8:37 AM EDT documented in this encounter Progress Notes * Diann Rodriguezer, KIRSTEN - 08/03/2023 9:06 AM EDT 37w 4d + movement. +pelvic pressure and discomfort. No leaking, bleeding. Reports ctx every 15 mins. MFM U/S completed on 07/27. Has not been able to upload blood sugars; recommended that she send them to us or [facility] through [facility], she is agreeable. Desires IOL as soon as allowed; having kidney stones and very uncomfortable. Feels like she still has one in the right. Has not seen urology but would like to try and get an appt. Referral placed. Advise IOL not before 39w 0d unless medically indicated; pt aware that her induction could be bumped if her spot was needed for a medically indicated induction. Scheduled for 08/14, pt aware. Requests cervical check today; 2 cm. MFM recommending additional thyroid labs, ordered. Accepts flu shot. Return in 1 week. Radiation Oncology Manager Documentation Provider requested health service worker. Name of health service worker: Ban Rhodes LPN ASSESSMENT assessment with Non-stress Test completed on 08/03/2023 at 37.4 weeks gestation for indicationof hyperthyroid and class 2 obesity heart baseline: 140 bpm Variability: Moderate Decelerations: absent Accelerations: present Contractions: Present x2 NST start time: 0837 NST stop time: 0900 NST strip reviewed, interpreted, and approved by OB provider, KIRSTEN Reed . NST strip stored in clinic storage file * Lakeshia Leung LPN - 08/03/2023 8:45 AM EDT 37w4d NST, AMXIMILIAN Very umcomfortable- back pain, pelvic pain/pressure. Ctx, about 15 minutes apart. Continues with right sided kidney pain, feels she passed another kidney stone recently. Would like flu shot today. Wants IOL as soon as allowable. documented in this encounter Nursing Notes * Lakeshia Leung LPN - 08/03/2023 9:14 AM EDT Patient here for flu injection. Patient doing well no complaints. Injection given IM as ordered. Patient tolerated well. Patient to follow up as directed. Patient instructed to call if any complications. Patient verbalized understanding of instructions given and her follow up appt for MAXIMILIAN. Injection site: Right Deltoid Medication Source: Dispensed stock medication * Renay Hare RN - 08/03/2023 9:00 AM EDT Patient seen by [facility] Care Connector. Patient denies any questions or concerns. have you cut down with your smoking n/a have you quit n/a have you seen a industrial technologist no have you seen a pediatric social worker no are you receiving counseling no have you received dental care during your no are you enrolled in WIC yes do you receive food stamps or ocampo assistance no Renay Hare RN documented in this encounter Plan of Treatment Upcoming Encounters Date Type Specialty Care Team Description 08/03/2023 Laboratory Laboratory Arthur, Lab Pietro [address] [facility] [place] [address] Hyperthyroidism affecting in third trimester 08/10/2023 Office Visit Gynecology Obstetrics BackerDiann CRNP [address] [facility] [address] Gibson, Non Stress Tests [facility] [place] [address] 08/14/2023 Telemedicine Endocrinology Vannesa Puente PA-C [address], [place] [id number] 08/17/2023 Office Visit Gynecology Obstetrics BackDiann martínez CRNP [address] [facility] [address] Arthur Non Stress Tests [facility] [address] [facility] [place] [address] Pending Results Name Type Priority Associated Diagnoses Date /Time TRAB (TSH RECEPTOR BINDING ANTIBODY) Lab Routine Hyperthyroidism affecting in third trimester 08/03/2023 9:33 AM EDT TSI (THYROID STIMULATING IMMUNOGLOBULIN) Lab Routine Hyperthyroidism affecting in third trimester 08/03/2023 9:33 AM EDT Scheduled Orders Name Type Priority Associated Diagnoses Orde r Schedule TRAB (TSH RECEPTOR BINDING ANTIBODY) Lab Routine Hyperthyroidism affecting in third trimester Expected: 08/03/2023 (Approximate), Expires: 08/03/2024 TSI (THYROID STIMULATING IMMUNOGLOBULIN) Lab Routine Hyperthyroidism affecting in third trimester Expected: 08/03/2023 (Approximate), Expires: 08/03/2024 Scheduled Referrals Name Type Priority Associated Diagnoses Orde r Schedule UROLOGY REFERRAL OP Referral Within 3 day s (urgent) Calculus of kidney affecting in third trimester Ordered: 08/03/2023 Health Maintenance Due Date Last Done Comments [...] Not on filedocumented as of this encounter Visit Diagnoses Diagnosis Supervision of [...] gestational diabetes mellitus (GDM) in third trimester Need for prophylactic vaccination and inoculation against influenza Calculus of kidney affecting in third trimester Hyperthyroidism affecting in third trimester documented in this encounter Care Teams Horologist Relationship Specialty Start Date End Date Jethro Stevens, [address] [place] [address] PCP - General Family Medicine 02/18/21 documented as of this encounter
--- OUTSIDE RECORDS SUMMARY | 2023-08-25 07:29 | External Medical Summary | Summary of Care ---
Author Name Unknown Organization [facility] Address [address] [facility] [place] [address] Phone [phone] Care Team Providers Care Data Specialist Name Role Phone Mendoza Stevenshazel Floresrip Primary Care Provider Reason for Visit * Reason Comments Return Visit Encounter Details Date Type Department Care Team Description 07/27/2023 Office Visit Gynecology/Obstetrics Opal Gibson [address] [place] [address] Eva Bush CRNP [address] [place] [address] Supervision of high risk in third trimester*; Obesity in , antepartum; Multigravida of advanced maternal age in third trimester; Hyperthyroidism affecting in third trimester; Anxiety during ; Maternal asthma complicating ; Diet controlled gestational diabetes mellitus (GDM) in third trimester Allergies Active Allergy Reactions Severity Noted Date Comments Doxycycline 01/27/2023 Pollen 05/29/2013 Peanut Oil 05/29/2013 documented as of this encounter (statuses as of 07/27/2023) Medications Medication Sig Dispensed Refills Start Date [...] as of this encounter (statuses as of 07/27/2023) Active Problems Problem Noted Date Health counseling 06/29/2023 Overview: Current needs or questions Patient denies having any current needs or questions 06/29/2023 Renay Hare RN 06/29/2023 Problem Action Taken Date entered Entered by Date resolved Current needs or questions Patient denies having any current needs or questions 07/27/2023 Taylor Patel RN 07/27/2023 GDM (gestational diabetes mellitus) 02/18 Overview: Diagnosed [...] very few sugars submitted- sugars are stable Last Assessment & Plan: Working with [facility]. [...] starting at 32 weeks. Family history of [place] (myocardial infarct ion) 02/18/2021 Hyperthyroidism 02/18/2021 Anxiety 02/18/2021 Graves disease 02/18/2021 Other allergic rhinitis 07/30/2001 Overview: ICD-10 update of inactive term Asthma with severity to be determined Overview: ICD-10 update of inactive term ATTN DEFIC NONHYPERACT 01/24/2000 EXT ASTHMA W-O STAT ASTH Dysmenorrhea Estimated Date of Delivery Comme nts Yes 08/20/2023 Based on Ultraso und documented as of this encounter (statuses as of 07/27/2023) Resolved Problems Problem Noted Date Resolved Date [...] Patient received flu vaccine. 08/08/2013 Charlee Souza, LISSA GBS Negative KIRSTEN Rios, MARGARITA 09/30/2013 ICD-10 update of inactive term documented as of this encounter (statuses as of 07/27/2023) Immunizations Name Administration Dates Next Due DT - Diptheria/Tetanus (PEDS) 01/24/1991, 987,03/21/1986 DTP Vaccine 01/23/1986,1985 Haemophilus B (HIB) 03/30/1989 Hepatitis B, 0-19 yrs 02/25/1997,09/11/1996,06/20 MMR - Measles/Mumps/Rubella Vaccine 01/24/1991,1 12/05/1986 OPV - Polio Virus Vaccine (Oral) 991,09/26/1986,01/23/1986,1985 Seasonal Influenza, PF, 6 mo ns & Above, IM , (Flulaval) 09/23/2020 Seasonal Influenza, Split, I IV3, With Preserve, [...] Sign Reading Time Taken Comments Blood Pressure 120/78 07/27/2023 9:57 AM EDT Pulse - - Temperature - - Respiratory Rate - - Oxygen Saturation - - Inhaled Oxygen Concentration - - Weight 95.6 kg (210 lb 12.8 oz) 07/27/2023 9:57 AM EDT Height 157.5 cm (5' 2") 07/27/2023 9:57 AM EDT Body Mass Index 38.56 07/27/2023 9:57 AM EDT documented in this encounter Progress Notes * KIRSTEN Nassar - 07/27/2023 10:39 AM EDT 36w4d Had a GI bug over the weekend with a lot of vomiting. Feeling better overall now, but having irregular painful contractions. Feels she is adequately hydrated. ?ROM, started with small amounts of wetness on underwear 5 days ago. ROM+ done today, negative Baby moving well. Had MFM u/s this morning, +cardiac activity, DICKSON 11.49cm. To begin weekly nst with visit next week. GBS done. Loss Claim Clerk Documentation Provider requested registered health nurse. Name of registered health nurse: KIRSTEN Foster * Nell Medina LPN - 07/27/2023 10:05 AM EDT 36w4d Pt reports having small amount of leaking since Monday, clear, no odor, contractions every 3-5 minutes and back pain over last few days, contractions subside with fluid intake. Radiating back pain from abdomen to back rates a 7. documented in this encounter Nursing Notes * Taylor Patel RN - 07/27/2023 10:16 AM EDT Patient seen by [facility] Arc Welding Machine Operator. documented in this encounter Plan of Treatment Upcoming Encounters Date Type Specialty Care Team Description 08/03/2023 Office Visit Gynecology Obstetrics Backer, KIRSTEN Royal [address] [facility] [place] [address] 08/10/2023 Office Visit Gynecology Obstetrics Backer, KIRSTEN Royal [address] [place] [address] 08/14/2023 Telemedicine Endocrinology Vannesa Puente PA-C [address] [place] [address] 08/17/2023 Office Visit Gynecology Obstetrics Backer, KIRSTEN Royal [address] [place] [address] Pending Results Name Type Priority Associated Diagnoses Date /Time GROUP B STREP CULTURE/PCR Lab Routine Supervision of high risk in third trimester 07/27/2023 10:38 AM EDT Health Maintenance Due Date Last Done Comments COVID-19 Vaccine (#1) 03/05/1986 Pneumococcal Vaccine: Pediatrics (0 to 5 Years) and At-Risk Patients (6 to 64 Years) (1 - PCV) 1991 Depression Screening, Annual for Pts 12 and Over 09/23/2021 09/23/2020 *SPIROMETRY ONCE FOR ASTHMA-ADULT 10/13/2022 Influenza Vaccine (FLU shot) (#1) 2023 09/23/2020, 08/09/2016, 08/08/2013 Pap Smear 02/01/2026 02/01/2023 Diabetes Screening 04/25/2026 04/25/2023, 0 04/08/2022, 06/19/2021, Additional history exists Cervical Cancer Screening 02/02/2028 HPV/Co-Test 02/02/2028 02/01/2023 DTaP,Tdap,and Td Vaccines (8 - Td or Tdap) 06/01/2033 06/01/2023, 10/31/2016, 07/04/1997, Additional history exists Hepatitis B Completed 02/25/1997, 08/21, 07/02/1996 Hepatitis C Screening Completed 02/01/2023 , 02/01/2023, 02/01/2023 GARDASIL-HPV IMMUNIZATION SERIES Aged Out No longer eligible based on patient's age to complete this topic MENINGOCOCCAL (MENACTRA/MENVEO) Aged Out No longer eligible based on patient's age to complete this topic documented as of this encounter Medical Devices Not on filedocumented as of this encounter Procedures Procedure Name Priority Date/Time Associated Diagnosis Comments RUPTURE OF MEMBRANE STAT 07/27/2023 10:40 AM EDT Supervision of high risk in third trimester documented in this encounter Results * RUPTURE OF MEMBRANE (07/27/2023 10:40 AM EDT) Rupture of Membrane Negative Negative 07/27/2023 11:02 AM EDT [facility]-10 Swab Specimen from wound / Unknown 07/27/2023 10:40 AM EDT 07/27/2023 10:40 AM EDT Eva CURTIS [facility] FLUID AND STOOL ORDERABLES [facility] [place] [address] documented in this encounter Visit Diagnoses Diagnosis [...] gestational diabetes mellitus (GDM) in third trimester documented in this encounter Care Teams Data Specialist Relationship Specialty Start Date End Date Jethro Stevens DO [address] [place] [address] PCP - General Family Medicine 02/18/21 documented as of this encounter
--- OUTSIDE RECORDS SUMMARY | 2023-08-25 07:29 | External Medical Summary ---
Author Name Unknown Address Unknown Organization K01:[facility] [place] [address] [place] [address] Laboratory Report Ordering Provider Test Date Status MAMTAADELINA 07/27/2023 10:38:15 Final Observation Date Value Abnormality Reference (Units ) Status Streptococcus agalactiae DNA [Presence] in Specimen by SHRAVAN with probe detection 07/27/2023 10:38:15 Negative Negative Final Performing Location [facility] [place] [address] [place] [address]
--- OUTSIDE RECORDS SUMMARY | 2023-08-25 07:29 | External Medical Summary | Summary of Care ---
Author Name Unknown Organization [facility] Address [address] [facility] [place] [address] Phone [phone] Care Team Providers Care Tool And Die Engineer Name Role Phone Mendoza Stevenshazel Floresrip Primary Care Provider Reason for Visit * Reason Comments Return Visit Encounter Details Date Type Department Care Team Description 07/27/2023 Office Visit Gynecology/Obstetrics Opal Gibson [address] [place] [address] Eva Bush CRNP [address] [place] [address] Supervision of high risk in third trimester*; [...] starting at 32 weeks. Family history of [place] (myocardial infarct ion) 02/18/2021 Hyperthyroidism 02/18/2021 Anxiety [...] nst with visit next week. GBS done. Warehouse Distribution Specialist Documentation Provider requested bench hand. Name of bench hand: KIRSTEN Foster * Nell Medina LPN - [...] 07/27/2023 10:16 AM EDT Patient seen by [facility] Wall Insulation Sprayer. documented in this encounter Plan of Treatment Upcoming Encounters Date Type Specialty Care Team Description 08/03/2023 Office Visit Gynecology Obstetrics Backer, KIRSTEN Royal [address] [facility] [place] [address] 08/10/2023 Office Visit Gynecology Obstetrics Backer, KIRSTEN Royal [address] [place] [address] 08/14/2023 Telemedicine Endocrinology Vannesa Puente PA-C [address] [place] [address] 08/17/2023 Office Visit Gynecology Obstetrics Backer, KIRSTEN Royal [address] [place] [address] Pending Results Name Type Priority Associated Diagnoses [...] [facility] [place] [address] documented in this encounter Visit Diagnoses Diagnosis [...] trimester documented in this encounter Care Teams Tool And Die Engineer Relationship Specialty Start Date End Date Jethro Stevens DO [address] [place] [address] PCP - General Family Medicine 02/18/21 documented as of this encounter
--- OUTSIDE RECORDS SUMMARY | 2023-08-25 07:29 | External Medical Summary | Summary of Care ---
Author Name Unknown Organization [facility] Address [address] [place] [address] Phone [phone] Care Team Providers Care Nurse Manager Name Role Phone Mendoza Stevensvojossue Mendoza Primary Care Provider Reason for Referral * Evaluate & Treat - Unlimited Visits (Within 10 days (routine)) - Authorized Specialty Diagnoses / Procedures Referred By Sharlene rivera Referred To Contact Maternal and Medicine Diagnoses Hyperthyroidism affecting in third trimester Ultrasound for screening for growth restriction Obesity in , antepartum 36 weeks gestation of Lorena Carver DO [address] [place] [address] Referral ID Status Reason Start Date Expiration Date Visits Requested Visits Authorized [id number] Authorized Specialty Services Required 07/27/2023 1 1 Question Answer Referral Priority Within 10 days (routine) Referral Reason Grave's Does the patient have a [facility] OB provider? Yes Encounter Details Date Type Department Care Team Description 07/27/2023 Office Visit Casket Liner Obstetrics Maternal Medicine, [facility] [address] [facility] [place] [address] Lorena Carver DO [address] [place] [address] Hyperthyroidism affecting in third trimester*; Ultrasound for screening for growth restriction; Obesity in , antepartum; 36 weeks gestation of Allergies Active Allergy Reactions Severity Noted Date Comments Doxycycline 01/27/2023 Pollen 05/29/2013 Peanut Oil 05/29/2013 documented as of this encounter (statuses as of 08/01/2023) Medications Medication Sig Dispensed Refills Start Date [...] Oral Tablet Take by mouth. 0 Active [employer] Verio Flex System w/Device KitIndications:Gesta tional diabetes mellitus (GDM), antepartum, gestational diabetes method of control unspecified Use as directed. Check blood sugars 4x/day 1 Kit 0 03/06/2023 Active [employer] Verio In Vitro Strip (Glucose Blood)Indications:Ge stational diabetes mellitus (GDM), antepartum, gestational diabetes method of control unspecified Use to check blood sugar four times daily: Fasting in the morning, then one hour after breakfast, one hour after lunch and one hour after dinner. 200 Strip 6 03/20/2023 Active [employer] Delica Lancets 33GIndications:Gesta tional diabetes mellitus (GDM), [...] as of this encounter (statuses as of 08/01/2023) Active Problems Problem Noted Date Health counseling [...] starting at 32 weeks. Family history of [place] (myocardial infarct ion) 02/18/2021 Hyperthyroidism 02/18/2021 Anxiety 02/18/2021 Graves disease 02/18/2021 Other allergic rhinitis 07/30/2001 Overview: ICD-10 update of inactive term Asthma with severity to be determined Overview: ICD-10 update of inactive term ATTN DEFIC NONHYPERACT 01/24/2000 EXT ASTHMA W-O STAT ASTH Dysmenorrhea Estimated Date of Delivery Comme nts Yes 08/20/2023 Based on Ultraso und documented as of this encounter (statuses as of 08/01/2023) Resolved Problems Problem Noted Date Resolved Date [...] as of this encounter (statuses as of 08/01/2023) Immunizations Name Administration Dates Next Due DT [...] on file documented as of this encounter Progress Notes * Lorena Sanchez DO - 07/27/2023 4:52 PM EDT Starr presented today at 36w4d for an ultrasound for the following indications: Hyperthyroidism affecting in third trimester Assessment & Plan: Recommend to check TRAb and TSI now as may affect management. Will also refer to pediatrics. Orders: [facility] Ultrasound for screening for growth restriction - [facility] Obesity in , antepartum - [facility] Referral OP 36 weeks gestation of - [facility] Referral OP Ultrasound summary: Patient presented at 36w 4d for growth assessment. Normal growth with EFW 3161 g at 72%ile. Normal DICKSON at 11.5 cm. Cephalic presentation. I reviewed the ultrasound images. Starr was given the opportunity to meet with me if she had any questions. Please refer to the ultrasound report for additional details about today's ultrasound examination. RECOMMENDATIONS: Follow up with MFM for ultrasound as clinically indicated. See prior formal MFM consultation note. Thank you for allowing us to participate in the care of this patient. Please call with any questions. Lorena Carver DO 07/27/2023 4:52 PM documented in this encounter Miscellaneous Notes * Assessment & Plan Note - Lorena Sanchez DO - 07/27/2023 11:12 AM EDT Associated Problem(s): GDM (gestational diabetes mellitus) Working with [facility]. * Assessment & Plan Note - Lorena Sanchez DO - 07/27/2023 11:12 AM EDT Associated Problem(s): Hyperthyroidism affecting Recommend to check TRAb and TSI now as may affect management. Will also refer to pediatrics. documented in this encounter Plan of Treatment Upcoming Encounters Date Type Specialty Care Team Description 08/03/2023 Office Visit Gynecology Obstetrics BackDiann martínez CRNP [address] [place] [address] Arthur Non Stress Tests Pietro [address] [place] [address] 08/10/2023 Office Visit Gynecology Obstetrics Diann Spain CRNP [address] [place] [address] Arthur Non Stress Tests Pietro [address] [place] [address] 08/14/2023 Telemedicine Endocrinology Vannesa Puente PA-C [address] [place] [address] 08/17/2023 Office Visit Gynecology Obstetrics BackDiann martínez CRNP [address] [place] [address] Arthur Non Stress Tests Pietro [address] [place] [address] Scheduled Referrals Name Type Priority Associated Diagnoses Orde r Schedule [facility] OP Referral Within 10 days (routine) Hyperthyroidism affecting in third trimester Ultrasound for screening for growth restriction Obesity in , antepartum 36 weeks gestation of Ordered: 07/27/2023 Health Maintenance Due Date Last Done Comments [...] as of this encounter Visit Diagnoses Diagnosis Hyperthyroidism affecting in third trimester- Primary Ultrasound for screening for growth restriction screening for growth retardation using ultrasonics Obesity in , antepartum Obesity complicating , childbirth, or the puerperium, antepartum condition or complication 36 weeks gestation of state, incidental documented in this encounter Care Teams Nurse Manager Relationship Specialty Start Date End Date Jethro Stevens DO [address] [place] [address] PCP - General Family Medicine 02/18/21 documented as of this encounter
--- OUTSIDE RECORDS SUMMARY | 2023-08-25 07:29 | External Medical Summary | Summary of Care ---
Author Name Unknown Organization [facility] [address] [facility] [address] Phone [phone] Care Team Providers Care Casino Cage Supervisor Name Role Phone Rodney Jethro Floresrip Primary Care Provider Reason for Visit * Reason Comments Outpatient Testing Encounter Details Date Type Department Care Team Description 08/03/2023 [facility] [address] [facility] [address] GibsonDino mckeon [facility] [address] [facility] [address] Hyperthyroidism affecting in third trimester Allergies Active Allergy [...] starting at 32 weeks. Family history of [place] (myocardial infarct ion) 02/18/2021 Hyperthyroidism 02/18/2021 Anxiety [...] Charlee Souza RN GBS Negative KIRSTEN Rios, CN 09/30/2013 ICD-10 update of inactive term documented [...] Obstetrics Diann Spain CRNP [address] [place] [address] Olamide Gibson Stress Tests Pietro [address] [place] [address] 08/14/2023 Telemedicine Endocrinology Vannesa Puente PA-C [address] [place] [address] 08/17/2023 Office Visit Gynecology Obstetrics Backer, KIRSTEN Royal [address] [place] [address] Olamide Gibson Stress Tests Pietro [address] [place] [address] Pending Results Name Type Priority Associated Diagnoses Date /Time TRAB (TSH RECEPTOR BINDING ANTIBODY) Lab Routine Hyperthyroidism affecting in third trimester 08/03/2023 9:33 AM EDT TSI (THYROID STIMULATING IMMUNOGLOBULIN) Lab Routine Hyperthyroidism affecting in third trimester 08/03/2023 9:33 AM EDT Health Maintenance Due Date Last [...] Visit Diagnoses Diagnosis Hyperthyroidism affecting in third trimester documented in this encounter Care Teams Casino Cage Supervisor Relationship Specialty Start Date End Date Jethro Stevens, [address] [place] [address] PCP - General Family Medicine 02/18/21 documented as of this encounter
--- OUTSIDE RECORDS SUMMARY | 2023-08-25 07:29 | External Medical Summary | Summary of Care ---
Author Name Unknown Organization [facility] Address [address] [facility] [place] [address] Phone [phone] Care Team Providers Care Test Grader Name Role Phone Jethro Stevens DO Primary Care Provider Reason for Visit * Reason Onset Date Comments TRIAGE 08/03/2023 Encounter Details Date Type Department Care Team Description 08/03/2023 Telephone Family Practice [facility] [address] [place] [address] Jethro Stevens DO [address] [place] [address] TRIAGE Allergies Active Allergy Reactions Severity Noted Date Comments Doxycycline 01/27/2023 Pollen 05/29/2013 Peanut Oil 05/29/2013 documented as of this encounter (statuses as of 08/07/2023) Medications Medication Sig Dispensed Refills Start Date [...] as of this encounter (statuses as of 08/07/2023) Active Problems Problem Noted Date Calculus of [...] starting at 32 weeks. Family history of [place] (myocardial infarct ion) 02/18/2021 Hyperthyroidism 02/18/2021 Anxiety 02/18/2021 Graves disease 02/18/2021 Other allergic rhinitis 07/30/2001 Overview: ICD-10 update of inactive term Asthma with severity to be determined Overview: ICD-10 update of inactive term ATTN DEFIC NONHYPERACT 01/24/2000 EXT ASTHMA W-O STAT ASTH Dysmenorrhea Estimated Date of Delivery Comme nts Yes 08/20/2023 Based on Ultraso und documented as of this encounter (statuses as of 08/07/2023) Resolved Problems Problem Noted Date Resolved Date [...] Charlee Souza RN GBS Negative KIRSTEN Rios, SAROJ 09/30/2013 ICD-10 update of inactive term documented as of this encounter (statuses as of 08/07/2023) Immunizations Name Administration Dates Next Due Seasonal [...] encounter Miscellaneous Notes * Telephone Encounter - EDE Verdugo - 08/07/2023 10:14 AM EDT Patient scheduled with Dr. Landaverde on 08/18/23. * Telephone Encounter - EDE Alexander - 08/03/2023 2:40 PM EDT Pt has an urgent referral for Calculus of kidney affecting in third trimester. Please advise on a date and time. Thank You Roscoe documented in this encounter Plan of Treatment Upcoming Encounters Date Type Specialty Care Team Description 08/10/2023 Office Visit Gynecology Obstetrics BackDiann martínez CRNP [address] [place] [address] Arthur, Non Stress Tests Pietro [address] [place] [address] 08/14/2023 Telemedicine Endocrinology Vannesa Puente PA-C [address] [place] [address] 08/17/2023 Office Visit Gynecology Obstetrics Diann Spain CRNP [address] [place] [address] Arthur Non Stress Tests Pietro [address] [place] [address] 08/18/2023 Office Visit Urology Ulises Landaverde MD [address] [facility] [address] [place] [address] Health Maintenance Due [...] filedocumented as of this encounter Care Teams Test Grader Relationship Specialty Start Date End Date Jethro Stevens DO [address] [place] [address] PCP - General Family Medicine 02/18/21 documented as of this encounter
--- OUTSIDE RECORDS SUMMARY | 2023-08-25 07:29 | External Medical Summary | Summary of Care ---
Author Name Unknown Organization [facility] Address [address] [facility] [place] [address] Phone [phone] Care Team Providers Care Air Lift Operator Name Role Phone Mendoza Stevensvor Reji Primary Care Provider Encounter Details Date Type Department Care Team Description 07/27/2023 Telephone Gynecology/Obstetrics [facility] [address] [place] [address] Eva Bush CRNP [address] [place] [address] Allergies Active Allergy Reactions Severity Noted Date [...] stable Last Assessment & Plan: Working with [facility]. [...] starting at 32 weeks. Family history of [place] (myocardial infarct ion) 02/18/2021 Hyperthyroidism 02/18/2021 Anxiety [...] 07/27/2023) Immunizations Name Administration Dates Next Due Seasonal Influenza, PF, 6 mo ns & Above, IM , (Flulaval) 09/23/2020 Seasonal Influenza, Split, IIV3, With Preserve, Inj [...] encounter Miscellaneous Notes * Telephone Encounter - Nell Medina LPN - 07/27/2023 12:02 PM EDT [facility] pre-admit form faxed, placed in scan bin. documented in this encounter Plan of Treatment Upcoming Encounters Date Type Specialty Care Team Description 08/03/2023 Office Visit Gynecology Obstetrics BackDiann martínez CRNP [address] [place] [address] 08/10/2023 Office Visit Gynecology Obstetrics Diann Spain CRNP [address] [place] [address] 08/14/2023 Telemedicine Endocrinology Vannesa Puente PA-C [address] [place], [place] [address] 08/17/2023 Office Visit Gynecology Obstetrics Backer, Diann KIRSTEN Sharif [address] [place] [address] Health Maintenance Due Date Last Done Comments [...] filedocumented as of this encounter Care Teams Air Lift Operator Relationship Specialty Start Date End Date Jethro Stevens DO [address] [place] [address] PCP - General Family Medicine 02/18/21 documented as of this encounter
--- OUTSIDE RECORDS SUMMARY | 2023-08-25 07:29 | External Medical Summary | Summary of Care ---
Author Name Unknown Organization [facility] Address [address] [facility] [place] [address] Phone [phone] Care Team Providers Care Audioprosthologist Name Role Phone Mendoza Stevenshazel Floresrip Primary Care Provider Reason for Visit * Reason Comments Return Visit Encounter Details Date Type Department Care Team Description 07/13/2023 Office Visit Gynecology/Obstetrics Opal Gibson [address] [place] [address] Eva Bush CRNP [address] [place] [address] Supervision of high risk in third trimester*; Obesity in , antepartum; Multigravida of advanced maternal age in third trimester; Hyperthyroidism affecting in third trimester; Anxiety during ; Maternal asthma complicating ; Diet controlled gestational diabetes mellitus (GDM) in third trimester Allergies Active Allergy Reactions Severity Noted Date Comments Doxycycline 01/27/2023 Pollen 05/29/2013 Peanut Oil 05/29/2013 documented as of this encounter (statuses as of 07/13/2023) Medications Medication Sig Dispensed Refills Start Date [...] 0 Active OneTouch Verio Flex System w/Device KitIndications:Ge stational diabetes mellitus (GDM), antepartum, gestational diabetes method of control unspecified Use as directed. Check blood sugars 4x/day 1 Kit 0 03/06/2023 Active OneTouch Verio In Vitro Strip (Glucose Blood)Indications :Gestational diabetes mellitus (GDM), antepartum, gestational diabetes method of control unspecified Use to check blood sugar four times daily: Fasting in the morning, then one hour after breakfast, one hour after lunch and one hour after dinner. 200 Strip 6 03/20/2023 Active OneTouch Delica Lancets 33GIndications:Ge stational diabetes mellitus (GDM), antepartum, gestational diabetes [...] by mouth in the morning. 0 Active Acetaminophen-Cod eine 300-30 MG Oral TabletIndications :Dental contusion, initial encounter Take 1 Tablet by mouth every 4 hours as needed for Pain, Severe. 30 Tablet 0 07/05/2023 Active Cephalexin 250 MG Oral Tablet Take by mouth 2 times a day. 0 Active Amoxicillin 500 MG Oral Capsule (Amoxil)Indicatio ns:Dental contusion, initial encounter Take 1 Capsule by mouth in the morning and 1 Capsule before bedtime. Do all this for 10 days. 20 Capsule 0 07/05/2023 3 Discontinued documented as of this encounter (statuses as of 07/13/2023) Active Problems Problem Noted Date Health counseling 06/29/2023 Overview: Current needs or questions Patient denies having any current needs or questions 06/29/2023 Renay Hare RN 06/29/2023 GDM (gestational diabetes mellitus) 02/18 Overview: Diagnosed [...] few sugars submitted- sugars submitted are WNL Last Assessment & Plan: DISCUSSION: 1. Reviewed etiology and risks associated with gestational diabetes mellitus, including risks to , fetus, maternal progression to Type 2 DM. Discussed potential for pre-existing diabetes since Gestational Diabetes Mellitus rarely presents before 24-28 weeks gestation. RECOMMENDATIONS: 1. Recommend hemoglobin A1C testing now. If result is 6.5% or greater, then will diagnose with overt Type 2 DM and treat as pre-existing diabetes. If compliance later in gestation is questioned, a HgbA1c can be assessed with a goal of less than 6%. 2. Recommend monitoring blood sugars with daily fasting blood sugar (maintained at less than 95) and 1 hour post prandial measurements (maintained at less than 140). Medications should be adjusted to maintain these target values. Report levels to [facility] weekly. 3. Recommend data modeling specialist consult. Lifestyle changes are also indicated including weight management and increased physical activity if not otherwise contraindicated in . 4. Advised patient that insulin (preferred) or an oral hypoglycemic (metformin preferred over glyburide) may be prescribed for the control of blood sugar levels. Reviewed the risks and benefits of each. 5. Recommend ultrasound as follows: - Maternal Medicine ultrasound at 19-20 weeks for anatomy screen. - If hemoglobin A1C greater than 6.5%, then Maternal Medicine ultrasound at 22-24 weeks for echocardiography. - If patient's blood sugars are controlled with diet alone, no further Maternal- Medicine ultrasound is necessary. -If medication is required to control blood sugars, then Maternal Medicine ultrasound is indicated every 4 weeks after 24 weeks for serial evaluation of growth. 6. Recommend surveillance and delivery as follows: - If blood sugars are well-controlled by diet alone, delivery should be accomplished by 41w 0d with twice weekly surveillance after 40w 0d. - If patient requires medications to control blood sugars, then recommend twice weekly surveillance starting at 32 weeks and delivery after 39w 0d and accomplished by EDC. - If poor blood sugar control, please refer to Maternal Medicine for consideration of earlier delivery. 7. Recommend intrapartum monitoring of blood sugars every 1-2 hours and treatment with insulin (either SC or IV) as indicated. 8. Recommend 2 hour glucose tolerance testing with 75-gram glucose load 6-8 weeks to ensure that her diabetes resolves after delivery. 9. Patient was advised that life-long screening for diabetes and pre-diabetes is recommended every 3 years in women with a history of GDM. , supervision, high-risk 2022 Last Assessment & [...] monitoring monthly labs. Last Assessment & Plan: DISCUSSION: 1. Discussed with the patient that uncontrolled maternal hyperthyroidism is associated with both maternal and risks. Women may experience hyperthyroid symptoms, develop cardiac arrhythmias or osteoporosis, or experience thyroid storm. The risk to the fetus includes miscarriage, premature delivery, preeclampsia, growth restriction and demise. These risks are modifiable with thyroid- replacement medications. In patients with tachycardia from hyperthyroidism, a Beta eboni (e.g., atenolol or metoprolol) is often used which may potentially be associated with development of growth restriction. 2. Reviewed that the risks to both the woman and the developing fetus are modifiable with thioamide treatment. Discussed that Propylthiouracil (PTU) and Methimazole have been used safely in women with hyperthyroidism for many years. The most serious maternal side effect of these drugs is agranulocytosis which occurs in 0.1-0.4% of cases. As these drugs do cross the placenta, they may result in hypothyroidism and goiter formation. RECOMMENDATIONS: 1. Recommend that patient s hyperthyroidism be managed during by media relations specialist. 2. Recommend PTU or Methimazole in first trimester and Methimazole in second and third trimester for the management of hyperthyroidism. To balance the rare risks of hepatotoxicity (associated with Propylthiouracil (PTU) ) and methimazole embryopathy (associated with aplasia cutis and esophageal or choanal atresia), the [place] [employer] and the [place] Association of Clinical Endocrinologists recommend treating hyperthyroidism with Propylthiouracil (PTU) in the first trimester and switching to methimazole in the second trimester. The [place] [employer]st[employer]ians [employer] Gynecologists states that either thioamide is a safe option to treat women with overt hyperthyroidism. 3. Recommend Maternal Medicine ultrasound for anatomy at 19-20 weeks and for growth and goiter check at 28-30 weeks. She should continue to have growth assessments with Maternal Medicine while she is clinically hyperthyroid. 4. Twice weekly NSTs are indicated if hyperthyroidism remains suboptimally controlled. 5. Pediatricians should be notified at time of delivery regarding maternal diagnosis and treatment Anxiety during 02/01/2023 Overview: Anxiety Currently managed [...] starting at 32 weeks. Family history of SC (myocardial infarct ion) 02/18/2021 Hyperthyroidism 02/18/2021 Anxiety 02/18/2021 Graves disease 02/18/2021 Other allergic rhinitis 07/30/2001 Overview: ICD-10 update of inactive term Asthma with severity to be determined Overview: ICD-10 update of inactive term ATTN DEFIC NONHYPERACT 01/24/2000 EXT ASTHMA W-O STAT ASTH Dysmenorrhea Estimated Date of Delivery Comme nts Yes 08/20/2023 Based on Ultraso und documented as of this encounter (statuses as of 07/13/2023) Resolved Problems Problem Noted Date Resolved Date [...] as of this encounter (statuses as of 07/13/2023) Immunizations Name Administration Dates Next Due Seasonal [...] Sign Reading Time Taken Comments Blood Pressure 124/78 07/13/2023 10:15 AM EDT Pulse - - Temperature - - Respiratory Rate - - Oxygen Saturation - - Inhaled Oxygen Concentration - - Weight 95.7 kg (211 lb) 07/13/2023 10:15 AM EDT Height 157.5 cm (5' 2") 07/13/2023 10:15 AM EDT Body Mass Index 38.59 07/13/2023 10:15 AM EDT documented in this encounter Progress Notes * KIRSTEN Nassar - 07/13/2023 10:55 AM EDT 34w4d Currently on antibiotics for UTI and kidney stone. Slowly feeling better. Now with vaginal itching,recommend Monistat. Checking blood sugars, but not able to upload them to the g[facility], as she doesn't have cell service regularly. Baby moving well. No bleeding or LOF. Interested in 39 week IOL. KIRSTEN Nassar documented in this encounter Nursing Notes * Nell Medina LPN - 07/13/2023 10:22 AM EDT 34w4d Pt was seen in ED for kidney stone/UTI, treated with abx, still having some pressure/pain but overall better. Labor instructions provided. documented in this encounter Plan of Treatment Upcoming Encounters Date Type Specialty Care Team Description 07/17/2023 Office Visit Gynecology Obstetrics Olivia Lawson PA-C [address] [place] [address] Nurse [facility] Pietro [address] [place] [address] 07/27/2023 Imaging Radiology 07/27/2023 Office Visit Maternal Medicine Lorena Carver, [address] [place] [address] 07/27/2023 Office Visit Gynecology Obstetrics Eva Bush CRNP [address] [place] [address] 08/03/2023 Office Visit Gynecology Obstetrics BackerDiann CRNP [address] [place] [address] 08/10/2023 Office Visit Gynecology Obstetrics BackerDiann CRNP [address] [place] [address] 08/14/2023 Telemedicine Endocrinology Vannesa Puente PA-C [address] [place] [address] 08/17/2023 Office Visit Gynecology Obstetrics BackDiann martínez CRNP [address] [place] [address] Health Maintenance Due Date Last Done Comments [...] trimester documented in this encounter Care Teams Audioprosthologist Relationship Specialty Start Date End Date Jethro Stevens DO [address] [place] [address] PCP - General Family Medicine 02/18/21 documented as of this encounter
--- OUTSIDE RECORDS SUMMARY | 2023-08-25 07:29 | External Medical Summary | Summary of Care ---
Author Name Unknown Organization [facility] Address [address] [facility] [place] [address] Phone [phone] Care Team Providers Care Chefs Name Role Phone Mendoza Stevensvor Reji Primary Care Provider Encounter Details Date Type Department Care Team Description 08/05/2023 Result Scan Unspecified Department Amador Arriaga MD [address] [place] [address] <No scans attached> Allergies Active Allergy Reactions [...] Oral Tablet Take by mouth. 0 Active ViewsIQio Flex System w/Device KitIndications:Gesta tional diabetes mellitus (GDM), antepartum, gestational diabetes method of control unspecified Use as directed. Check blood sugars 4x/day 1 Kit 0 03/06/2023 Active Chrono24.comuch Verio In Vitro Strip (Glucose Blood)Indications:Ge stational [...] 03/20/23: MFM ADAPT consult complete. Enrolled in [place]. Instructions provided to report blood sugars each [...] starting at 32 weeks. Family history of CA (myocardial infarct ion) 02/18/2021 Hyperthyroidism 02/18/2021 Anxiety [...] Diann Spain CRNP [address] [place] [address] Olamide Gibson Stress Tests Pietro [address] [place] [address] 08/14/2023 Telemedicine Endocrinology Vannesa Puente PA-C [address] [facility] [address] 08/17/2023 Office Visit Gynecology Obstetrics Diann Spain CRNP [address] [place] [address] Gibson, Non Stress Tests Pietro [address] [place] [address] Health Maintenance Due Date Last Done Comments [...] Date/Time Associated Diagnosis Comments OUTSIDE LAB RESULTS 08/05/2023 documented in this encounter Results * OUTSIDE LAB RESULTS (08/05/2023) 08/05/2023 Amador Arriaga MD LABORATORY documented in this encounter Care Teams Chefs Relationship Specialty Start Date End Date Jethro Stevens DO [address] [place] [address] PCP - General Family Medicine 02/18/21 documented as of this encounter
--- OUTSIDE RECORDS SUMMARY | 2023-08-25 07:29 | External Medical Summary | Summary of Care ---
Author Name Unknown Organization [facility] Address [address] [facility] [place] [address] Phone [phone] Care Team Providers Care Sharepoint Trainer Name Role Phone Negro Stevensr Reji Primary Care Provider Reason for Visit * Reason Onset Date Comments Advice 07/25/2023 Calling with an update on ctx around 930 Encounter Details Date Type Department Care Team Description 07/25/2023 Telephone Gynecology/Obstetrics [facility] [address] [place] [address] Amador Arriaga MD [address] [place] [address] Advice (Calling with an update on ctx arou... Allergies Active Allergy Reactions Severity Noted Date Comments Doxycycline 01/27/2023 Pollen 05/29/2013 Peanut Oil 05/29/2013 documented as of this encounter (statuses as of 07/25/2023) Medications Medication Sig Dispensed Refills Start Date [...] as of this encounter (statuses as of 07/25/2023) Active Problems Problem Noted Date Health counseling [...] sugars are stable Last Assessment & Plan: DISCUSSION: 1. Reviewed [...] maintain these target values. Report levels to [facility] weekly. 3. Recommend demand planner consult. Lifestyle changes are also indicated including [...] patient s hyperthyroidism be managed during by electronic health records specialist. 2. Recommend PTU or Methimazole in first trimester and Methimazole in second and third trimester for the management of hyperthyroidism. To balance the rare risks of hepatotoxicity (associated with Propylthiouracil (PTU) ) and methimazole embryopathy (associated with aplasia cutis and esophageal or choanal atresia), the [place] [employer] Association and the [place] Association of Clinical Endocrinologists recommend treating hyperthyroidism with Propylthiouracil (PTU) in the first trimester and switching to methimazole in the second trimester. The [place] [employer] of Obstetricians and Gynecologists states that [...] starting at 32 weeks. Family history of CO (myocardial infarct ion) 02/18/2021 Hyperthyroidism 02/18/2021 Anxiety 02/18/2021 Graves disease 02/18/2021 Other allergic rhinitis 07/30/2001 Overview: ICD-10 update of inactive term Asthma with severity to be determined Overview: ICD-10 update of inactive term ATTN DEFIC NONHYPERACT 01/24/2000 EXT ASTHMA W-O STAT ASTH Dysmenorrhea Estimated Date of Delivery Comme nts Yes 08/20/2023 Based on Ultraso und documented as of this encounter (statuses as of 07/25/2023) Resolved Problems Problem Noted Date Resolved Date [...] Charlee Souza RN GBS Negative KIRSTEN Rios, CNCandi 09/30/2013 ICD-10 update of inactive term documented as of this encounter (statuses as of 07/25/2023) Immunizations Name Administration Dates Next Due Seasonal [...] encounter Miscellaneous Notes * Telephone Encounter - Chantale Paulino LPN - 07/25/2023 9:36 AM EDT Patient called back with report that she is feeling improvement with pushing fluids the past hour. She was able to get up and let her puppy out. Contractions coming maybe every 10 minutes or so. Advised that she should continue to monitor and push fluids. If contractions start to come more regular,more painful then let us know. Also reviewed kick counts. * Telephone Encounter - Taylor Patel RN - 07/25/2023 8:31 AM EDT Pt states that she started having ctx at approx 2 am. She admits to "being bad at timing them" but thinks they are anywhere from 5-24 in apart. She had a stomach bug on Monday with diarrhea and vomiting (family had this as well). She is feeling better from that but still with body aches from the vomiting. She states that they are not getting more intense. Denies any ROM. Denies any vaginal bleeding. Advised pt that I would recommend her pushing her fluids for the next hour and timing these. She will do that and call back with an update. documented in this encounter Plan of Treatment Upcoming Encounters Date Type Specialty Care Team Description 07/27/2023 Imaging Radiology 07/27/2023 Office Visit Maternal Medicine Wen, Lorena Bender, DO [address], [place] [id number] 07/27/2023 Office Visit Gynecology Obstetrics McHyevgeniy, KIRSTEN Mathew [address] [place] [address] 08/03/2023 Office Visit Gynecology Obstetrics BackerDiann CRNP [address] [place] [address] 08/10/2023 Office Visit Gynecology Obstetrics BackerDiann CRNP [address] [place] [address] 08/14/2023 Telemedicine Endocrinology Vannesa Puente PA-C [address], [place] [id number] 08/17/2023 Office Visit Gynecology Obstetrics BackDiann martínez CRNP [address] [place] [address] Health Maintenance Due Date Last Done Comments [...] filedocumented as of this encounter Care Teams Sharepoint Trainer Relationship Specialty Start Date End Date Jethro Stevens DO [address] [place] [address] PCP - General Family Medicine 02/18/21 documented as of this encounter
--- OUTSIDE RECORDS SUMMARY | 2023-08-25 07:29 | External Medical Summary | Summary of Care ---
Author Name Unknown Organization [facility] Address [address] [place] [address] Phone [phone] Care Team Providers Care Liquid Fertilizer Servicer Name Role Phone Jethro Stevens Primary Care Provider Encounter Details Date Type Department Care Team Description 07/11/2023 Orders Only Outcomes Research Department [address] [place] [address] Sisi Barillas CHRA [employer] Other*[id number] Allergies Active Allergy Reactions Severity Noted Date Comments Doxycycline 01/27/2023 Pollen 05/29/2013 Peanut Oil 05/29/2013 documented as of this encounter (statuses as of 07/11/2023) Medications Medication Sig Dispensed Refills Start Date [...] Oral Tablet Take by mouth. 0 Active [place] NetentSecTouch Verio Flex System w/Device KitIndications:Gest ational diabetes mellitus (GDM), antepartum, gestational diabetes method of control unspecified Use as directed. Check blood sugars 4x/day 1 Kit 0 03/06/2023 Active OneTouch Verio In Vitro Strip (Glucose Blood)Indications:G estational diabetes mellitus (GDM), antepartum, gestational diabetes method of control unspecified Use to check blood sugar four times daily: Fasting in the morning, then one hour after breakfast, one hour after lunch and one hour after dinner. 200 Strip 6 03/20/2023 Active OneTouch Delica Lancets 33GIndications:Gest ational diabetes mellitus (GDM), antepartum, gestational diabetes method [...] by mouth in the morning. 0 Active Acetaminophen-Codei ne 300-30 MG Oral TabletIndications:D ental contusion, initial encounter Take 1 Tablet by mouth every 4 hours as needed for Pain, Severe. 30 Tablet 0 07/05/2023 Active Amoxicillin 500 MG Oral Capsule (Amoxil)Indications :Dental contusion, initial encounter Take 1 Capsule by mouth in the morning and 1 Capsule before bedtime. Do all this for 10 days. 20 Capsule 0 07/05/2023 07/15/2023 Active documented as of this encounter (statuses as of 07/11/2023) Active Problems Problem Noted Date Health counseling [...] send BS- only very few sugars submitted. Last Assessment & Plan: DISCUSSION: 1. Reviewed [...] maintain these target values. Report levels to [facility] weekly. 3. Recommend hat block bench hand consult. Lifestyle changes are also indicated including [...] patient s hyperthyroidism be managed during by multi media specialist. 2. Recommend PTU or Methimazole in first trimester and Methimazole in second and third trimester for the management of hyperthyroidism. To balance the rare risks of hepatotoxicity (associated with Propylthiouracil (PTU) ) and methimazole embryopathy (associated with aplasia cutis and esophageal or choanal atresia), the [place] [employer] Association and the [place] Association of Clinical Endocrinologists recommend treating hyperthyroidism with Propylthiouracil (PTU) in the first trimester and switching to methimazole in the second trimester. The [place] [employer] Obstetricians and Gynecologists states that [...] starting at 32 weeks. Family history of SD (myocardial infarct ion) 02/18/2021 Hyperthyroidism 02/18/2021 Anxiety 02/18/2021 Graves disease 02/18/2021 Other allergic rhinitis 07/30/2001 Overview: ICD-10 update of inactive term Asthma with severity to be determined Overview: ICD-10 update of inactive term ATTN DEFIC NONHYPERACT 01/24/2000 EXT ASTHMA W-O STAT ASTH Dysmenorrhea Estimated Date of Delivery Comme nts Yes 08/20/2023 Based on Ultraso und documented as of this encounter (statuses as of 07/11/2023) Resolved Problems Problem Noted Date Resolved Date [...] as of this encounter (statuses as of 07/11/2023) Immunizations Name Administration Dates Next Due Seasonal [...] Encounters Date Type Specialty Care Team Description 07/13/2023 Office Visit Gynecology Obstetrics Eva Bush CRNP [address] [place] [address] 07/17/2023 Office Visit Gynecology Obstetrics Olivia Lawson PA-C [address] [place] [address] Nurse Gabriela [facility] Pietro [address] [place] [address] 07/27/2023 Imaging Radiology 07/27/2023 Office Visit Maternal Medicine Lorena Carver, [address] [place] [address] 07/27/2023 Office Visit Gynecology Obstetrics Eva Bush CRNP [address] [place] [address] 08/03/2023 Office Visit Gynecology Obstetrics Diann Spain CRNP [address] [place] [address] 08/10/2023 Office Visit Gynecology Obstetrics Diann Spain CRNP [address] [place] [address] 08/14/2023 Telemedicine Endocrinology Vannesa Puente PA-C [address] [place] [address] 08/17/2023 Office Visit Gynecology Obstetrics Backer, KIRSTEN Royal [address] [place] [address] Scheduled Orders Name Type Priority Associated Diagnoses Orde r Schedule MYCODE SUBSEQUENT ADULT Lab Routine [employer] Other*[id number] Every 6 Months for 2 Occurrences starting 07/11/2023 until 07/30/2024 Health Maintenance Due Date Last Done Comments [...] as of this encounter Visit Diagnoses Diagnosis [employer] Other*[id number] documented in this encounter Care Teams Liquid Fertilizer Servicer Relationship Specialty Start Date End Date Jethro Stevens DO [address] [place] [address] PCP - General Family Medicine 02/18/21 documented as of this encounter
--- OUTSIDE RECORDS SUMMARY | 2023-08-25 07:29 | External Medical Summary ---
Author Name Unknown Address Unknown Organization : Laboratory Report Ordering Provider Test Date Status DANYELLE REY 08/03/2023 09:33:06 Final Observation Date Value Abnormality Reference (Units ) Status Thyroid stimulating immunoglobulins [Units/volume] in Serum 08/03/2023 09:33:06 <89 <140 (% baseline) Final Performing Location
--- OUTSIDE RECORDS SUMMARY | 2023-08-25 07:29 | External Medical Summary | Summary of Care ---
Author Name Unknown Organization [facility] Address [address] [place] [address] Phone [phone] Care Team Providers Care Petrologist Name Role Phone Mendoza Stevensvojossue Mendoza Primary [...] gestation of Lorena Carver DO [address] [place] [address] Referral ID Status Reason Start Date Expiration Date Visits Requested Visits Authorized [id number] Authorized Specialty Services Required 07/27/2023 1 1 Question Answer Referral Priority Within 10 days (routine) Referral Reason Grave's Does the patient have a [facility] OB provider? Yes Encounter Details Date Type Department Care Team Description 07/27/2023 Office Visit Ambulance Assistant Obstetrics Maternal Medicine, [facility] [address] [facility] [place] [address] Lorena Carver DO [address] [place] [address] Hyperthyroidism affecting in third trimester*; [...] Oral Tablet Take by mouth. 0 Active [employer] Verio Flex System w/Device KitIndications:Gesta tional diabetes mellitus (GDM), antepartum, gestational diabetes method of control unspecified Use as directed. Check blood sugars 4x/day 1 Kit 0 03/06/2023 Active [employer] Verio In Vitro Strip (Glucose Blood)Indications:Ge stational diabetes mellitus (GDM), antepartum, gestational diabetes method of control unspecified Use to check blood sugar four times daily: Fasting in the morning, then one hour after breakfast, one hour after lunch and one hour after dinner. 200 Strip 6 03/20/2023 Active [employer] Delica Lancets 33GIndications:Gesta tional diabetes mellitus (GDM), [...] starting at 32 weeks. Family history of [place] (myocardial infarct ion) 02/18/2021 Hyperthyroidism 02/18/2021 Anxiety [...] Visit Gynecology Obstetrics Backer, KIRSTEN Royal [address] [facility] [place] [address] Gibson, Non Stress Tests Pietro [address] [place] [address] 08/10/2023 Office Visit Gynecology Obstetrics BackDiann martínez CRNP [address] [place] [address] Gibson, Non Stress Tests Pietro [address] [place] [address] 08/14/2023 Telemedicine Endocrinology Vannesa Puente PA-C [address] [place] [address] 08/17/2023 Office Visit Gynecology Obstetrics BackDiann martínez CRNP [address] [place] [address] Arthur Non Stress Tests Pietro [address] [place] [address] Scheduled Referrals Name Type Priority Associated Diagnoses [...] incidental documented in this encounter Care Teams Petrologist Relationship Specialty Start Date End Date Jethro Stevens DO [address] [place] [address] PCP - General Family Medicine 02/18/21 documented as of this encounter
--- OUTSIDE RECORDS SUMMARY | 2023-08-25 07:29 | External Medical Summary ---
Author Name Unknown Address Unknown Organization : Laboratory Report Ordering Provider Test Date Status DAYNELLE REY 08/03/2023 09:33:06 Final Observation Date Value Abnormality Reference (Units ) Status TRAB 08/03/2023 09:33:06 1.21 <=2.00 (IU /L) Final Performing Location
--- OUTSIDE RECORDS SUMMARY | 2023-08-25 07:29 | External Medical Summary | Summary of Care ---
Author Name Unknown Organization [facility] Address [address] [facility] [place] [address] Phone [phone] Care Team Providers Care Online Marketing Coordinator Name Role Phone Rodney Jethro Reji Primary Care Provider Reason for Visit * Reason Onset Date Comments Leaking Fluid 08/08/2023 Review with prov ider outreach and education social worker Encounter Details Date Type Department Care Team Description 08/08/2023 Telephone Gynecology/Obstetrics [facility] [address] [place] [address] Seng Hodge MD [address] [place] [address] Leaking Fluid (Review with provider outreach and education social worker) Allergies Active Allergy Reactions Severity Noted Date [...] starting at 32 weeks. Family history of [place] (myocardial infarct ion) 02/18/2021 Hyperthyroidism 02/18/2021 Anxiety [...] with onctien Patient can be reached at [phone] documented in this encounter Plan of Treatment Upcoming Encounters Date Type Specialty Care Team Description 08/08/2023 Telemedicine Endocrinology Vannesa Puente PA-C [address] [place] [address] 08/10/2023 Office Visit Gynecology Obstetrics BackerDiann CRNP [address] [facility] [place] [address] Arthur Non Stress Tests Pietro [address] [place] [address] 08/17/2023 Office Visit Gynecology Obstetrics BackDiann martínez CRNP [address] [facility] [place] [address] Arthur Non Stress Tests Pietro [address] [facility] [place] [address] 08/18/2023 Office Visit Urology Ulises Landaverde MD [...] filedocumented as of this encounter Care Teams Online Marketing Coordinator Relationship Specialty Start Date End Date Jethro Stevens DO [address] [place] [address] PCP - General Family Medicine 02/18/21 documented as of this encounter
--- OUTSIDE RECORDS SUMMARY | 2023-08-25 07:29 | External Medical Summary | Summary of Care ---
Author Name Unknown Organization [facility] Address [address] [facility] [place] [address] Phone [phone] Care Team Providers Care Crop Farmers Name Role Phone Mendoza Stevenshazel Floresrip Primary Care Provider Reason for Visit * Reason Comments Return Visit Encounter Details Date Type Department Care Team Description 07/27/2023 Office Visit Gynecology/Obstetrics Opal Gibson [address] [place] [address] Eva Bush CRNP [address] [place] [address] Supervision of high risk in third trimester*; [...] maintain these target values. Report levels to [facility] weekly. 3. Recommend intellectual property legal assistant consult. Lifestyle changes are also indicated including [...] patient s hyperthyroidism be managed during by engineer specialist. 2. Recommend PTU or Methimazole in first trimester and Methimazole in second and third trimester for the management of hyperthyroidism. To balance the rare risks of hepatotoxicity (associated with Propylthiouracil (PTU) ) and methimazole embryopathy (associated with aplasia cutis and esophageal or choanal atresia), the [place] Thyroid Association and the [place] Association of Clinical Endocrinologists recommend treating hyperthyroidism with Propylthiouracil (PTU) in the first trimester and switching to methimazole in the second trimester. The [place] College of Obstetricians and Gynecologists states that [...] starting at 32 weeks. Family history of [place] (myocardial infarct ion) 02/18/2021 Hyperthyroidism 02/18/2021 Anxiety [...] on underwear 5 days ago. ROM+ done today. Baby moving well. Had MFM u/s this morning, +cardiac activity, DICKSON 11.49cm. To begin weekly nst with visit next week. KIRSTEN Nassar * Nell Medina LPN - 07/27/2023 10:05 [...] 07/27/2023 10:16 AM EDT Patient seen by [facility] Medical Authorization Specialist. documented in this encounter Plan of Treatment Upcoming Encounters Date Type Specialty Care Team Description 08/03/2023 Office Visit Gynecology Obstetrics BackDiann martínez CRNP [address] [place] [address] 08/10/2023 Office Visit Gynecology Obstetrics Diann Spain CRNP [address] [place] [address] 08/14/2023 Telemedicine Endocrinology Vannesa Puente PA-C [address] [place] [address] 08/17/2023 Office Visit Gynecology Obstetrics BackDiann martínez CRNP [address] [place] [address] Pending Results Name Type Priority Associated Diagnoses Date /Time GROUP B STREP CULTURE/PCR Lab Routine Supervision of high risk in third trimester 07/27/2023 10:38 AM EDT RUPTURE OF MEMBRANE Lab STAT Supervision of high risk in third trimester 07/27/2023 10:40 AM EDT Health Maintenance Due Date Last [...] trimester documented in this encounter Care Teams Crop Farmers Relationship Specialty Start Date End Date Jethro Stevens DO [address] [place] [address] PCP - General Family Medicine 02/18/21 documented as of this encounter
--- OUTSIDE RECORDS SUMMARY | 2023-08-25 07:29 | External Medical Summary ---
Author Name Unknown Address Unknown Organization [id number]:[facility] - [address] [place] [address] Laboratory Report Ordering Provider Test Date Status ADELINA OLEARY 07/27/2023 10:40:07 Final Observation Date Value Abnormality Reference (Units ) Status Premature Rupture Membrane risk 07/27/2023 10:40:07 Negative Negative Final Performing Location [facility] 0 - [address] [place] [address]
--- OUTSIDE RECORDS SUMMARY | 2023-08-25 07:30 | External Medical Summary ---
Author Name Unknown Address Unknown Organization K01:[facility] [place] [address] [place] [address] Laboratory Report Ordering Provider Test Date Status EFRAIN DAVALOS 06/29/2023 09:56:15 Final Observation Date Value Abnormality Reference (Units ) Status WBC, Total 06/29/2023 09:56:15 9.70 4.00-10.8 0 (K/uL) Final RBC 06/29/2023 09:56:15 4.25 3.85-5.15 (M/uL) Final Hemoglobin 06/29/2023 09:56:15 11.8 Below low normal 12 .0-15.3 (g/dL) Final Performing Location [facility] - [address] [place] [address]
--- OUTSIDE RECORDS SUMMARY | 2023-08-25 07:30 | External Medical Summary | Summary of Care ---
Author Name Unknown Organization [facility] Address [address] [facility] [place] [address] Phone [phone] Care Team Providers Care Dental Ceramist Assistant Name Role Phone Mendoza Stevenshazel Floresrip Primary Care Provider Reason for Visit * Reason Comments Return Visit Encounter Details Date Type Department Care Team Description 06/29/2023 Office Visit Gynecology/Obstetrics Opal Gibson [address] [place] [address] Diann Spain CRNP [address] [place] [address] Supervision of high risk in second trimester*; Obesity in , antepartum; Multigravida of advanced maternal age in third trimester; Hyperthyroidism affecting in third trimester; Anxiety during ; Maternal asthma complicating ; Diet controlled gestational diabetes mellitus (GDM) in third trimester Allergies Active Allergy Reactions Severity Noted Date Comments Doxycycline 01/27/2023 Pollen 05/29/2013 Peanut Oil 05/29/2013 documented as of this encounter (statuses as of 06/29/2023) Medications Medication Sig Dispensed Refills Start Date [...] Oral Tablet Take by mouth. 0 Active [employer] Verio Flex System w/Device KitIndications:Gesta tional diabetes [...] after dinner. 200 Strip 6 03/20/2023 Active [employer] Delica Lancets 33GIndications:Gesta tional diabetes mellitus (GDM), [...] by mouth in the morning. 0 Active documented as of this encounter (statuses as of 06/29/2023) Active Problems Problem Noted Date Health counseling [...] 89 03/06/2023 07:20 AM HEMOGLOBIN A1C - [facility] 5.6 04/08/2022 07:10 AM She reports her [...] maintain these target values. Report levels to [facility] weekly. 3. Recommend behavioral health technician consult. Lifestyle changes are also indicated including [...] patient s hyperthyroidism be managed during by medicare specialist. 2. Recommend PTU or Methimazole in first trimester and Methimazole in second and third trimester for the management of hyperthyroidism. To balance the rare risks of hepatotoxicity (associated with Propylthiouracil (PTU) ) and methimazole embryopathy (associated with aplasia cutis and esophageal or choanal atresia), the [place] Thyroid Association and the [place] Association of Clinical Endocrinologists recommend treating hyperthyroidism with Propylthiouracil (PTU) in the first trimester and switching to methimazole in the second trimester. The [place] College of Obstetricians and Gynecologists states that [...] starting at 32 weeks. Family history of [place] (myocardial infarct ion) 02/18/2021 Hyperthyroidism 02/18/2021 Anxiety 02/18/2021 Graves disease 02/18/2021 Other allergic rhinitis 07/30/2001 Overview: ICD-10 update of inactive term Asthma with severity to be determined Overview: ICD-10 update of inactive term ATTN DEFIC NONHYPERACT 01/24/2000 EXT ASTHMA W-O STAT ASTH Dysmenorrhea Estimated Date of Delivery Comme nts Yes 08/20/2023 Based on Ultraso und documented as of this encounter (statuses as of 06/29/2023) Resolved Problems Problem Noted Date Resolved Date [...] as of this encounter (statuses as of 06/29/2023) Immunizations Name Administration Dates Next Due Seasonal Influenza, Quadriva lent, No Preserve, 6 Mons & Above, IM 09/23/2020 Seasonal Influenza, Split, IIV3, With Preserve, [...] Sign Reading Time Taken Comments Blood Pressure 116/76 06/29/2023 9:18 AM EDT Pulse - - Temperature - - Respiratory Rate - - Oxygen Saturation - - Inhaled Oxygen Concentration - - Weight 96.6 kg (213 lb) 06/29/2023 9:18 AM EDT Height - - Body Mass Index 38.96 06/15/2023 1:24 PM EDT documented in this encounter Progress Notes * KIRSTEN Fox - 06/29/2023 9:32 AM EDT Doing well, good movement. No bleeding/ctx or loss of fluid. Reports elevated BP at [place], normotensive today. Has chronic HAs, no worse. No vision changes. She is getting a BP cuff today to use at home - recommend bringing to the office to calibrate. Reports good glucose control; sometimes does not have a signal at home to upload readings. Encouraged to upload today while here. Reviewed available readings in EMR, most of which are normal. MFM U/S today, results in process. Discussed NSTs at 37 weeks. Plans to check TSH and CBC today, orders are in Epic. 2 week return KIRSTEN Reed documented in this encounter Nursing Notes * Renay Hare RN - 06/29/2023 9:33 AM EDT Patient here to enroll in the [facility] Plus program. Forms completed and intake assessment form completed. have you cut down with your smoking yes have you quit Yes have you seen a behavioral health technician no have you seen a secondary social studies teacher no are you receiving counseling no have you received dental care during your no are you enrolled in WIC yes do you receive food stamps or ocampo assistance yes Renay Hare RN * Ban Rhodes LPN - 06/29/2023 9:21 AM EDT 32w4d Denies vaginal bleeding/rom + movement Noticing some leaking but thinking urine Fluid levels good today with US Had elevated BP at home yesterday 144/88 documented in this encounter Plan of Treatment Upcoming Encounters Date Type Specialty Care Team Description 07/13/2023 Office Visit Gynecology Obstetrics Eva Bush CRNP [address] [place] [address] 07/17/2023 Office Visit Gynecology Obstetrics Olivia Lawson PA-C [address] [place] [address] Nurse Arthur [facility] Return Pietro [address] [place] [address] 07/27/2023 Imaging Radiology 07/27/2023 Office Visit Maternal Medicine Lorena Carver, DO [address] [place] [address] 07/27/2023 Office Visit Gynecology Obstetrics Eva Bush CRNP [address] [place] [address] 08/03/2023 Office Visit Gynecology Obstetrics Diann Spain CRNP [address] [place] [address] 08/10/2023 Office Visit Gynecology Obstetrics Diann Spain CRNP [address] [place] [address] 08/14/2023 Telemedicine Endocrinology Vannesa Puente PA-C [address] [place] [address] 08/17/2023 Office Visit Gynecology Obstetrics Backer, KIRSTEN Royal [address] [place] [address] Health Maintenance Due Date Last Done Comments [...] Diagnoses Diagnosis Supervision of high risk in second trimester- Primary Unspecified high-risk Obesity in , [...] trimester documented in this encounter Care Teams Dental Ceramist Assistant Relationship Specialty Start Date End Date Jethro Stevens DO [address] [place] [address] PCP - General Family Medicine 02/18/21 documented as of this encounter
--- OUTSIDE RECORDS SUMMARY | 2023-08-25 07:30 | External Medical Summary | Summary of Care ---
Author Name Unknown Organization [facility] Address [address] [place] [address] Phone [phone] Care Team Providers Care Director Of Loss Prevention Name Role Phone Mendoza Stevensvor Reji Primary Care Provider Encounter Details Date Type Department Care Team Description 06/29/2023 Office Visit Endoscopy Technican Obstetrics Maternal Medicine, [facility] [address] [facility] [place] [address] Lior Valdes MD [address] [place] [address] Hyperthyroidism*; Anxiety; Graves disease; Obesity in , antepartum; Multigravida of advanced maternal age in third trimester; Hyperthyroidism affecting in third trimester; Maternal asthma complicating ; Diet controlled gestational [...] sugars 4x/day 1 Kit 0 03/06/2023 Active [employer] Verio In Vitro Strip (Glucose Blood)Indications:Ge stational diabetes mellitus (GDM), antepartum, gestational diabetes method of control unspecified Use to check blood sugar four times daily: Fasting in the morning, then one hour after breakfast, one hour after lunch and one hour after dinner. 200 Strip 6 03/20/2023 Active [employer] Lancets 33GIndications:Gesta tional diabetes mellitus (GDM), antepartum, [...] for Constipation. 60 Capsule 5 06/01/2023 Active documented as of this encounter (statuses [...] 10:20 AM 100-G GESTATIONAL GLUCOSE, FASTING - IRWIN 89 03/06/2023 07:20 AM HEMOGLOBIN A1C - [place] 5.6 04/08/2022 07:10 AM She reports her [...] maintain these target values. Report levels to [facility] weekly. 3. Recommend trust advisor consult. Lifestyle changes are also indicated including [...] patient s hyperthyroidism be managed during by retail performance specialist. 2. Recommend PTU or Methimazole in first trimester and Methimazole in second and third trimester for the management of hyperthyroidism. To balance the rare risks of hepatotoxicity (associated with Propylthiouracil (PTU) ) and methimazole embryopathy (associated with aplasia cutis and esophageal or choanal atresia), the [place] Thyroid Association and the [place] Association of Clinical Endocrinologists recommend treating hyperthyroidism with Propylthiouracil (PTU) in the first trimester and switching to methimazole in the second trimester. The [place] College of Obstetricians and Gynecologists states that [...] 06/29/2023) Immunizations Name Administration Dates Next Due DT - Diptheria/Tetanus (PEDS) 01/24/1991, 987,03/21/1986 DTP Vaccine 01/23/1986,1985 Haemophilus B (HIB) 03/30/1989 Hepatitis B, 0-19 yrs 02/25/1997,09/11/1996,06/20 MMR - Measles/Mumps/Rubella Vaccine 01/24/1991,1 12/05/1986 OPV - Polio Virus Vaccine (Oral) 991,09/26/1986,01/23/1986,1985 Seasonal Influenza, Quadriva lent, No Preserve, 6 Mons & Above, IM 09/23/2020 Seasonal Influenza, Split, I IV3, With [...] as of this encounter Progress Notes * Lior Valdes MD - 06/29/2023 9:33 AM EDT MATERNAL MEDICINE VISIT Starr Dove is at 32w4d who presents to [facility] for an ultrasound and follow-up of her high risk . The patient is currently 32 weeks and 4 days gestation with hyperthyroidism due to Graves disease, class 2 obesity and gestational diabetes controlled by diet alone. She comes in for an evaluation offetal growth. She is being seen today by Maternal- Medicine for the following reasons: Problem List Items Addressed This Visit Hyperthyroidism - Primary Anxiety Graves disease Obesity in , antepartum I reviewed the ultrasound. The overall estimated weight is consistent with the 51st percentile for the gestational age and the anatomy that was visualized appears unremarkable. The amniotic fluid volume is normal. AMA (advanced maternal age) multigravida 35+ Hyperthyroidism affecting Maternal asthma complicating GDM (gestational diabetes mellitus) RECOMMENDATIONS: Recommend surveillance starting at 37 weeks secondary to class 2 obesity. Recommend follow up ultrasound with M in 4 weeks for growth secondary to class 2 obesity. Thank you for allowing us to participate in the care of this patient. Please call with any questions. Lior Valdes MD 06/29/2023 9:33 AM documented in this encounter Miscellaneous Notes * Assessment & Plan Note - Lior Valdes MD - 06/29/2023 9:35 AM EDT Associated Problem(s): Obesity in , antepartum I reviewed the ultrasound. The overall estimated weight is consistent with the 51st percentile for the gestational age and the anatomy that was visualized appears unremarkable. The amniotic fluid volume is normal. documented in this encounter Plan of Treatment Upcoming Encounters Date Type Specialty Care Team Description 07/13/2023 Office Visit Gynecology Obstetrics Eva Bush CRNP [address] [place] [address] 07/17/2023 Office Visit Gynecology Obstetrics Olivia Lawson PA-C [address] [place] [address] Nurse Arthur [facility] Pietro [address] [place] [address] 07/27/2023 Imaging Radiology 07/27/2023 Office Visit Maternal Medicine Lorena Carver, DO [address] [place] [address] 07/27/2023 Office Visit Gynecology Obstetrics Eva Bush CRNP [address] [place] [address] 08/03/2023 Office Visit Gynecology Obstetrics Diann Spain CRNP [address] [place] [address] 08/10/2023 Office Visit Gynecology Obstetrics Diann Spain CRNP [address] [place] [address] 08/14/2023 Telemedicine Endocrinology Vannesa Puente PA-C [address] [place] [address] 08/17/2023 Office Visit Gynecology Obstetrics Backer, KIRSTEN Royal [address] [place] [address] Health Maintenance Due Date Last Done Comments [...] as of this encounter Visit Diagnoses Diagnosis Hyperthyroidism- Primary Thyrotoxicosis without mention of goiter or other cause, without mention of thyrotoxic crisis or storm Anxiety Anxiety state, unspecified Graves disease Toxic diffuse goiter without mention of thyrotoxic crisis or storm Obesity in , antepartum Obesity complicating , childbirth, or the puerperium, antepartum condition or complication Multigravida of advanced maternal age in third trimester Hyperthyroidism affecting in third trimester Maternal asthma complicating Other current maternal conditions classifiable elsewhere, complicating , childbirth, or the puerperium, unspecified as to episode of care Diet controlled gestational diabetes mellitus (GDM) in third trimester documented in this encounter Care Teams Director Of Loss Prevention Relationship Specialty Start Date End Date Jtehro Stevens DO [address] [place] [address] PCP - General Family Medicine 02/18/21 documented as of this encounter
--- OUTSIDE RECORDS SUMMARY | 2023-08-25 07:30 | External Medical Summary ---
Author Name Unknown Address Unknown Organization K01:[facility] [place] [address] [facility] [place] [address] Laboratory Report Ordering Provider Test Date Status EFRAIN DAVALOS 06/29/2023 09:56:15 Final Observation Date Value Abnormality Reference (Units ) Status SYNC LEUKOCYTES IN BLOOD BY AUTOMATED COUNT 06/29/2023 09:56:15 9.70 4.00-10.80 (K/uL) Final Segs 06/29/2023 09:56:15 73.5 40.0-75.0 (%) Final Lymphs % 06/29/2023 09:56:15 15.7 Below low normal 18.0-42.0 (%) Final Monos 06/29/2023 09:56:15 6.8 1.0-11.0 (%) Final Eosinophils 06/29/2023 09:56:15 2.6 0.0-6.0 (%) Final Basos 06/29/2023 09:56:15 0.7 0.0-2.0 (%) Final Immature Granulocyte, Percent 06/29/2023 09:56:15 0.7 0.0-2.0 (%) Final Absolute Segs 06/29/2023 09:56:15 7.13 1.80-7.70 (K/uL) Final Lymphs, absolute 06/29/2023 09:56:15 1.52 1.00-4.80 (K/ul) Final Monos, Abs 06/29/2023 09:56:15 0.66 0.00-1.10 (K/uL) Final Eos, Abs 06/29/2023 09:56:15 0.25 0.00-0.70 (K/uL) Final Basos, Abs 06/29/2023 09:56:15 0.07 0.00-0.20 (K/uL) Final Immature Granulocytes, Number 06/29/2023 09:56:15 0.07 0.00-0.20 (K/uL) Final Performing Location [facility] [place] [address] [facility] [address]
--- OUTSIDE RECORDS SUMMARY | 2023-08-25 07:30 | External Medical Summary | Summary of Care ---
Author Name Unknown Organization [facility] Address [address] [facility] [place] [address] Phone [phone] Care Team Providers Care Freight Associate Name Role Phone Mendoza Stevensvor Reji Primary Care Provider Reason for Visit * Reason Comments Blood Pressure Check Encounter Details Date Type Department Care Team Description 07/04/2023 Nurse Only Gynecology/Obstetrics [facility] [address] [place] [address] Gw, Nurse Obgyn Injection [address] [place] [address] Blood Pressure Check (/) Allergies Active Allergy Reactions Severity Noted Date Comments Doxycycline 01/27/2023 Pollen 05/29/2013 Peanut Oil 05/29/2013 documented as of this encounter (statuses as of 07/04/2023) Medications Medication Sig Dispensed Refills Start Date [...] as of this encounter (statuses as of 07/04/2023) Active Problems Problem Noted Date Health counseling [...] 03/20/23: MFM ADAPT consult complete. Enrolled in [employer]. Instructions provided to report blood sugars each [...] levels to [facility] weekly. 3. Recommend import/export specialist consult. Lifestyle changes are also indicated [...] patient s hyperthyroidism be managed during by learning specialist. 2. Recommend PTU or Methimazole in first trimester and Methimazole in second and third trimester for the management of hyperthyroidism. To balance the rare risks of hepatotoxicity (associated with Propylthiouracil (PTU) ) and methimazole embryopathy (associated with aplasia cutis and esophageal or choanal atresia), the [place] Thyroid Association and the Canadian Association of Clinical Endocrinologists recommend treating hyperthyroidism with Propylthiouracil (PTU) in the first trimester and switching to methimazole in the second trimester. The [employer] College of Obstetricians and Gynecologists states that [...] starting at 32 weeks. Family history of GA (myocardial infarct ion) 02/18/2021 Hyperthyroidism 02/18/2021 Anxiety 02/18/2021 Graves disease 02/18/2021 Other allergic rhinitis 07/30/2001 Overview: ICD-10 update of inactive term Asthma with severity to be determined Overview: ICD-10 update of inactive term ATTN DEFIC NONHYPERACT 01/24/2000 EXT ASTHMA W-O STAT ASTH Dysmenorrhea Estimated Date of Delivery Comme nts Yes 08/20/2023 Based on Ultraso und documented as of this encounter (statuses as of 07/04/2023) Resolved Problems Problem Noted Date Resolved Date [...] as of this encounter (statuses as of 07/04/2023) Immunizations Name Administration Dates Next Due Seasonal [...] Sign Reading Time Taken Comments Blood Pressure 144/80 07/04/2023 3:15 PM EDT Pulse - - Temperature - - Respiratory Rate - - Oxygen Saturation - - Inhaled Oxygen Concentration - - Weight - - Height - - Body Mass Index - - documented in this encounter Nursing Notes * Taylor Patel RN - 07/04/2023 3:44 PM EDT Unable to reach community pharmacy in [place]. Pt aware and would like this called into [facility]. The ordered medication(s) have been called into the pharmacy as instructed. * Taylor Patel RN - 07/04/2023 3:[address] Arriaga, verbal order received to call in Tylenol # 3, 1-2 every 4-6 hours, prn pain. # 30, 0refills. Pt uses [facility] [place]. * Taylor Patel RN - 07/04/2023 3:15 PM EDT Pt c/o headache and tooth pain. * Taylor Patel RN - 07/04/2023 3:11 PM EDT Urine dip negative. documented in this encounter Plan of Treatment Upcoming Encounters Date Type Specialty Care Team Description 07/13/2023 Office Visit Gynecology Obstetrics Eva Bush CRNP [address] [place] [address] 07/17/2023 Office Visit Gynecology Obstetrics Olivia Lawson PA-C [address] [place] [address] Nurse Arthur [facility] Return Pietro [address] [place] [address] 07/27/2023 Imaging Radiology 07/27/2023 Office Visit Maternal Medicine Lorena Carver, DO [address] [place] [address] 07/27/2023 Office Visit Gynecology Obstetrics Eva Bush CRNP [address] [place] [address] 08/03/2023 Office Visit Gynecology Obstetrics BackerDiann CRNP [address] [place] [address] 08/10/2023 [facility] [address] [place] [address] 08/14/2023 Telemedicine Endocrinology Vannesa Puente PA-C [address] [place] [address] 08/17/2023 Office Visit Gynecology Obstetrics BackerDiann CRNP [address] [place] [address] Health Maintenance Due Date Last Done Comments [...] filedocumented as of this encounter Care Teams Freight Associate Relationship Specialty Start Date End Date Jethro Stevens DO [address] [place] [address] PCP - General Family Medicine 02/18/21 documented as of this encounter
--- OUTSIDE RECORDS SUMMARY | 2023-08-25 07:30 | External Medical Summary ---
Author Name Unknown Address Unknown Organization K01:[facility] - [address] [place] [address] Laboratory Report Ordering Provider Test Date Status TEO HESS 06/29/2023 09:56:15 Final Observation Date Value Abnormality Reference (Units ) Status MYCODE SPECIMEN-SST 06/29/2023 09:56:15 Freezing of extracted DNA, whole blood and/or serum. Final Performing Location [facility] - [address] [place] [address]
--- OUTSIDE RECORDS SUMMARY | 2023-08-25 07:30 | External Medical Summary | Summary of Care ---
Author Name Unknown Organization [facility] [address] [facility] [address] Phone [phone] Care Team Providers Care Drying Supervisor Name Role Phone Mendoza Stevenshazel Floresrip Primary Care Provider Reason for Visit * Reason Comments Outpatient Testing Encounter Details Date Type Department Care Team Description 06/29/2023 Laboratory Laboratory, [facility] [address] [place] [address] [facility] [address] [place] [address] Becual Other*[id number]; Antepartum anemia; Supervision of high risk in second trimester; Hyperthyroidism Allergies Active Allergy Reactions Severity Noted Date [...] Oral Tablet Take by mouth. 0 Active Nu-Tech FoodsTouch Verio Flex System w/Device KitIndications:Gesta tional diabetes mellitus (GDM), antepartum, gestational diabetes method of control unspecified Use as directed. Check blood sugars 4x/day 1 Kit 0 03/06/2023 Active Nu-[employer] Foods[employer] Verio In Vitro Strip (Glucose Blood)Indications:Ge stational diabetes mellitus (GDM), antepartum, gestational diabetes method of control unspecified Use to check blood sugar four times daily: Fasting in the morning, then one hour after breakfast, one hour after lunch and one hour after dinner. 200 Strip 6 03/20/2023 Active Nu-[employer] FoodsTouch Delica Lancets 33GIndications:Gesta tional diabetes mellitus (GDM), [...] maintain these target values. Report levels to [facility] weekly. 3. Recommend vp securities consult. Lifestyle changes are also indicated including [...] patient s hyperthyroidism be managed during by scheduling specialist. 2. Recommend PTU or Methimazole in first trimester and Methimazole in second and third trimester for the management of hyperthyroidism. To balance the rare risks of hepatotoxicity (associated with Propylthiouracil (PTU) ) and methimazole embryopathy (associated with aplasia cutis and esophageal or choanal atresia), the [place] Thyroid Association and the [place] Association of Clinical Endocrinologists recommend treating hyperthyroidism with Propylthiouracil (PTU) in the first trimester and switching to methimazole in the second trimester. The [place] College of Obstetricians and Gynecologists states that [...] Encounters Date Type Specialty Care Team Description 06/29/2023 Office Visit Gynecology Obstetrics Diann Spain CRNP [address] [place] [address] Supervision of high risk in second trimester*; Obesity in , antepartum; Multigravida of advanced maternal age in third trimester; Hyperthyroidism affecting in third trimester; Anxiety during ; Maternal asthma complicating ; Diet controlled gestational diabetes mellitus (GDM) in third trimester 07/13/2023 Office Visit Gynecology Obstetrics Eva Bush CRNP [address] [place] [address] 07/17/2023 Office Visit Gynecology Obstetrics Olivia Lawson PA-C [address] [place] [address] Nurse Arthur [facility] Return Pietro [address] [place] [address] 07/27/2023 Imaging Radiology 07/27/2023 Office Visit Maternal Medicine Lorena Carver, DO [address] [facility] [address] 07/27/2023 Office Visit Gynecology Obstetrics Eva Bush CRNP [address] [place] [address] 08/03/2023 Office Visit Gynecology Obstetrics Diann Spain CRNP [address] [place] [address] 08/10/2023 Office Visit Gynecology Obstetrics Backer, KIRSTEN Royal [address] [facility] [place] [address] 08/14/2023 Telemedicine Endocrinology Vannesa Puente PA-C [address] [place] [address] 08/17/2023 Office Visit Gynecology Obstetrics Backer, KIRSTEN Royal [address] [place] [address] Pending Results Name Type Priority Associated Diagnoses Date /Time MYCODE INITIAL ADULT Lab Routine [employer] Other*[id number] 06/29/2023 9:56 AM EDT CBC WITH WBC DIFFERENTIAL AND ANEMIA REFLEX WORKUP Lab Routine Antepartum anemia 06/29/2023 9:56 AM EDT TSH WITH FREE T4 IF INDICATED Lab Routine Hyperthyroidism 06/29/2023 9:56 AM EDT MYCODE INITIAL ADULT-PINK Lab Routine [employer] Other*[id number] 06/29/2023 9:56 AM EDT MYCODE SST1 Lab Routine [employer] Other*[id number] 06/29/2023 9:56 AM EDT MYCODE SST2 Lab Routine [employer] Other*[id number] 06/29/2023 9:56 AM EDT ANEMIA CBC Lab Routine Antepartum anemia 06/29/2023 9:56 AM EDT DIFFERENTIAL, AUTOMATED Lab Routine Antepartum anemia 06/29/2023 9:56 AM EDT ANEMIA REFLEX CHEMISTRY HOLD Lab Routine Antepartum anemia 06/29/2023 9:56 AM EDT Health Maintenance Due Date Last [...] gestational diabetes mellitus (GDM) in third trimester [employer] Other*[id number] Antepartum anemia Anemia, antepartum Supervision of high risk in second trimester Unspecified high-risk Hyperthyroidism Thyrotoxicosis without mention of goiter or other cause, without mention of thyrotoxic crisis or storm documented in this encounter Care Teams Drying Supervisor Relationship Specialty Start Date End Date Jethro Stevens DO [address] [place] [address] PCP - General Family Medicine 02/18/21 documented as of this encounter
--- OUTSIDE RECORDS SUMMARY | 2023-08-25 07:30 | External Medical Summary | Summary of Care ---
Author Name Unknown Organization [facility] Address [address] [facility] [address] Phone [phone] Care Team Providers Care Field Contact Person Name Role Phone Jethro Stevens DO Primary Care Provider Reason for Visit * Reason Onset Date Comments Advice 07/04/[address] Zak mcmahon Encounter Details Date Type Department Care Team Description 07/04/2023 Telephone Gynecology/Obstetrics [facility] [address] [place] [address] Amador Arriaga MD [address] [place] [address] Advice (Rev with Dr. Arriaga) Allergies Active Allergy Reactions Severity Noted Date [...] after dinner. 200 Strip 6 03/20/2023 Active FashionchickTouch Delica Lancets 33GIndications:Gesta tional diabetes mellitus (GDM), [...] maintain these target values. Report levels to [facility] weekly. 3. Recommend incident response analyst consult. Lifestyle changes are also indicated including [...] patient s hyperthyroidism be managed during by strategic partnership specialist. 2. Recommend PTU or Methimazole in first trimester and Methimazole in second and third trimester for the management of hyperthyroidism. To balance the rare risks of hepatotoxicity (associated with Propylthiouracil (PTU) ) and methimazole embryopathy (associated with aplasia cutis and esophageal or choanal atresia), the [place] Thyroid Association and the [place] Association of Clinical Endocrinologists recommend treating hyperthyroidism with Propylthiouracil (PTU) in the first trimester and switching to methimazole in the second trimester. The [place] College of Obstetricians and Gynecologists states that [...] starting at 32 weeks. Family history of VT (myocardial infarct ion) 02/18/2021 Hyperthyroidism 02/18/2021 Anxiety [...] encounter Miscellaneous Notes * Telephone Encounter - Taylor Patel RN - 07/04/2023 11:[address] Arriaga, pt should come into office for b/p check and urine dip. Will call Dr. Arriaga back with results. * Telephone Encounter - Taylor Patel RN - 07/04/2023 10:52 AM EDT Pt called the office stating that she has been having headaches and last night she checked her bp and it was 134/90 She has a tooth ache and wonders if that is the cause of her headache. Can't see the dentist for a few weeks. Today, her headache is severe per pt. Has tried tylenol with no help. States that she is well hydrated. She just took her bp at home and it was 165-120 and on repeat it was 161/106. Will review with Dr. Arriaga. Pt can be reached at [phone] documented in this encounter Plan of Treatment Upcoming Encounters Date Type Specialty Care Team Description 07/04/2023 Nurse Only Gynecology Obstetrics Gw, Nurse Obgyn Injection [address] [place] [address] 07/13/2023 Office Visit Gynecology Obstetrics Eva Bush CRNP [address] [place] [address] 07/17/2023 Office Visit Gynecology Obstetrics Olivia Lawson PA-C [address] [place] [address] Nurse Arthur [facility] Pietro [address] [place] [address] 07/27/2023 Imaging Radiology 07/27/2023 Office Visit Maternal Medicine Wen Lorena Bedner, DO [address] [place] [address] 07/27/2023 Office Visit Gynecology Obstetrics McHail, KIRSTEN Mathew [address] [place] [address] 08/03/2023 Office Visit Gynecology Obstetrics BackerDiann CRNP [address] [place] [address] 08/10/2023 [facility] [address] [place] [address] 08/14/2023 Telemedicine Endocrinology Vannesa Puente PA-C [address] [place] [address] 08/17/2023 [facility] [address] [place] [address] Health Maintenance Due Date Last Done Comments [...] filedocumented as of this encounter Care Teams Field Contact Person Relationship Specialty Start Date End Date Jethro Stevens DO [address] [place] [address] PCP - General Family Medicine 02/18/21 documented as of this encounter
--- OUTSIDE RECORDS SUMMARY | 2023-08-25 07:30 | External Medical Summary | Summary of Care ---
Author Name Unknown Organization [facility] Address [address] [facility] [place] [address] Phone [phone] Care Team Providers Care Cigar Making Machine Supervisor Name Role Phone Mendoza Stevensvor Reji Primary Care Provider Encounter Details Date Type Department Care Team Description 07/06/2023 Result Scan Unspecified Department Seng Hodge MD [address] [place] [address] <No scans attached> Allergies Active Allergy Reactions Severity Noted Date Comments Doxycycline 01/27/2023 Pollen 05/29/2013 Peanut Oil 05/29/2013 documented as of this encounter (statuses as of 07/06/2023) Medications Medication Sig Dispensed Refills Start Date [...] Oral Tablet Take by mouth. 0 Active [employer]lete[employer]Touch Verio Flex System w/Device KitIndications:Gest ational diabetes mellitus (GDM), antepartum, gestational diabetes method of control unspecified Use as directed. Check blood sugars 4x/day 1 Kit 0 03/06/2023 Active [employer]lete[employer]Touch Verio In Vitro Strip (Glucose Blood)Indications:G estational [...] as of this encounter (statuses as of 07/06/2023) Active Problems Problem Noted Date Health counseling [...] MFM ADAPT consult complete. Enrolled in [facility]. Instructions provided to report blood sugars [...] maintain these target values. Report levels to [facility] weekly. 3. Recommend dealer support technician consult. Lifestyle changes are also indicated [...] patient s hyperthyroidism be managed during by portfolio specialist. 2. Recommend PTU or Methimazole in first trimester and Methimazole in second and third trimester for the management of hyperthyroidism. To balance the rare risks of hepatotoxicity (associated with Propylthiouracil (PTU) ) and methimazole embryopathy (associated with aplasia cutis and esophageal or choanal atresia), the [place] Thyroid Association and the [place] Association of Clinical Endocrinologists recommend treating hyperthyroidism with Propylthiouracil (PTU) in the first trimester and switching to methimazole in the second trimester. The [place] College of Obstetricians and Gynecologists states that [...] as of this encounter (statuses as of 07/06/2023) Resolved Problems Problem Noted Date Resolved Date [...] as of this encounter (statuses as of 07/06/2023) Immunizations Name Administration Dates Next Due Seasonal [...] Bush CRNP [address] [place] [address] 07/17/2023 Office Visit Gynecology Obstetrics Olivia Lawson PA-C [address] [place] [address] Nurse Arthur [facility] Return Pietro [address] [place] [address] 07/27/2023 Imaging Radiology 07/27/2023 Office Visit Maternal Medicine L[facility]na Carver, DO [address] [facility] [address] 07/27/2023 Office Visit Gynecology Obstetrics Eva Bush CRNP [address] [place] [address] 08/03/2023 Office Visit Gynecology Obstetrics Diann Spain CRNP [address] [place] [address] 08/10/2023 Office Visit Gynecology Obstetrics Diann Spain CRNP [address] [place] [address] 08/14/2023 Telemedicine Endocrinology Vannesa Puente [facility]-C [address] [facility] [address] 08/17/2023 Office Visit Gynecology Obstetrics Backer, KIRSTEN Royal [address] [place] [address] Health Maintenance Due Date Last Done Comments [...] Date/Time Associated Diagnosis Comments OUTSIDE LAB RESULTS 07/06/2023 documented in this encounter Results * OUTSIDE LAB RESULTS (07/06/2023) 07/06/2023 Seng Hodge MD LABORATORY documented in this encounter Care Teams Cigar Making Machine Supervisor Relationship Specialty Start Date End Date Jethro Stevens DO [address] [place] [address] PCP - General Family Medicine 02/18/21 documented as of this encounter
--- OUTSIDE RECORDS SUMMARY | 2023-08-25 07:30 | External Medical Summary ---
Author Name Unknown Address Unknown Organization K01:[facility]ATORY [facility] - [address] [place] [address] Laboratory Report Ordering Provider Test Date Status JERSON RUIZ 06/29/2023 09:56:15 Final Observation Date Value Abnormality Reference (Units ) Status TSH 06/29/2023 09:56:15 0.74 0.27-4.20 (uIU/mL) Final Performing Location [facility] - [address] [place] [address]
--- OUTSIDE RECORDS SUMMARY | 2023-08-25 07:30 | External Medical Summary | Summary of Care ---
Author Name Unknown Organization [facility] Address [address] [place] [address] Phone [phone] Care Team Providers Care Optician Apprentice Name Role Phone Mendoza Setvensvor Reji Primary Care Provider Encounter Details Date Type Department Care Team Description 06/30/2023 Telephone Gynecology/Obstetrics [facility] [address] [place] [address] Mishel Sue [facility] [address] [place], [place] [id number] Allergies Active Allergy Reactions Severity Noted Date Comments Doxycycline 01/27/2023 Pollen 05/29/2013 Peanut Oil 05/29/2013 documented as of this encounter (statuses as of 06/30/2023) Medications Medication Sig Dispensed Refills Start Date [...] Oral Tablet Take by mouth. 0 Active [employer] Above CostTouch Verio Flex System w/Device KitIndications:Gesta tional diabetes [...] as of this encounter (statuses as of 06/30/2023) Active Problems Problem Noted Date Health counseling [...] these target values. Report levels to [facility] weekly. 3. Recommend buckle attacher consult. Lifestyle changes are also indicated including [...] patient s hyperthyroidism be managed during by boarding specialist. 2. Recommend PTU or Methimazole in first trimester and Methimazole in second and third trimester for the management of hyperthyroidism. To balance the rare risks of hepatotoxicity (associated with Propylthiouracil (PTU) ) and methimazole embryopathy (associated with aplasia cutis and esophageal or choanal atresia), the [place] Thyroid Association and the [place] Association of Clinical Endocrinologists recommend treating hyperthyroidism with Propylthiouracil (PTU) in the first trimester and switching to methimazole in the second trimester. The [place] College of Obstetricians and Gynecologists states that [...] as of this encounter (statuses as of 06/30/2023) Resolved Problems Problem Noted Date Resolved Date [...] as of this encounter (statuses as of 06/30/2023) Immunizations Name Administration Dates Next Due Seasonal [...] encounter Miscellaneous Notes * Telephone Encounter - Ban Rhodes LPN - 06/30/2023 7:53 AM EDT MyG sent * Telephone Encounter - Ban Rhodes LPN - 06/30/2023 7:52 AM EDT ----- Message from Mishel Sue CNM sent at 06/29/2023 6:16 PM EDT ----- Please let patient know her CBC showed improvement in her anemia. She should continue her current oral iron regimen. Thanks! Mishel Sue CNM documented in this encounter Plan of Treatment Upcoming Encounters Date Type Specialty Care Team Description 07/13/2023 Office Visit Gynecology Obstetrics Eva Bush CRNP [address] [place] [address] 07/17/2023 Office Visit Gynecology Obstetrics Olivia Lawson PA-C [address] [place] [address] Nurse Arthur [facility] Return Pietro [address] [place] [address] 07/27/2023 Imaging Radiology 07/27/2023 Office Visit Maternal Medicine Lorena Carver, DO [address] [place] [address] 07/27/2023 Office Visit Gynecology Obstetrics Eva Bush CRNP [address] [place] [address] 08/03/2023 Office Visit Gynecology Obstetrics Backer, KIRSTEN Royal [address] [place] [address] 08/10/2023 Office Visit Gynecology Obstetrics Backer, KIRSTEN Royal [address] [place] [address] 08/14/2023 Telemedicine Endocrinology Vannesa Puente PA-C [address] [place] [address] 08/17/2023 Office Visit Gynecology Obstetrics Backer, KIRSTEN Royal [address] [place] [address] Health Maintenance Due Date Last Done Comments [...] filedocumented as of this encounter Care Teams Optician Apprentice Relationship Specialty Start Date End Date Jethro Stevens DO [address] [place] [address] PCP - General Family Medicine 02/18/21 documented as of this encounter
--- OUTSIDE RECORDS SUMMARY | 2023-08-25 07:30 | External Medical Summary ---
Author Name Unknown Address Unknown Organization K01:LABORATORY [facility] - [address] [facility] [address] Laboratory Report Ordering Provider Test Date Status TEO HESS 06/29/2023 09:56:15 Final Observation Date Value Abnormality Reference (Units ) Status MYCODE SPECIMEN-LAV 06/29/2023 09:56:15 Freezing of extracted DNA, whole blood and/or serum. Final Performing Location LABORATORY [facility] - [address] [place] [address]
--- OUTSIDE RECORDS SUMMARY | 2023-08-25 07:30 | External Medical Summary ---
Author Name Unknown Address Unknown Organization K01:LABORATORY [facility] - [address] [place] [address] Laboratory Report Ordering Provider Test Date Status TEO HESS 06/29/2023 09:56:15 Final Observation Date Value Abnormality Reference (Units ) Status MYCODE SPECIMEN-SST 06/29/2023 09:56:15 Freezing of extracted DNA, whole blood and/or serum. Final Performing Location [facility] - [address] [place] [address]
--- OUTSIDE RECORDS SUMMARY | 2023-08-25 07:30 | External Medical Summary | Summary of Care ---
Author Name Unknown Organization [facility] Address [address] [place] [address] Phone [phone] Care Team Providers Care Marketing And Public Relations Manager Name Role Phone Mendoza Stevensvor Reji Primary Care Provider Encounter Details Date Type Department Care Team Description 06/29/2023 Office Visit Supervisory Air Intercept Controller Obstetrics Maternal Medicine, [facility] [address] [facility] [place] [address] Lior Valdes MD [address] [place] [address] Hyperthyroidism*; Anxiety; Graves disease; Obesity [...] sugars 4x/day 1 Kit 0 03/06/2023 Active Rushmore.fmTouch Verio In Vitro Strip (Glucose Blood)Indications:Ge stational diabetes mellitus (GDM), antepartum, gestational diabetes method of control unspecified Use to check blood sugar four times daily: Fasting in the morning, then one hour after breakfast, one hour after lunch and one hour after dinner. 200 Strip 6 03/20/2023 Active Prolacta Bioscience DelNextivity Lancets 33GIndications:Gesta tional diabetes mellitus (GDM), antepartum, [...] maintain these target values. Report levels to [facility] weekly. 3. Recommend associate web developer consult. Lifestyle changes are also indicated including [...] patient s hyperthyroidism be managed during by correctional treatment specialist. 2. Recommend PTU or Methimazole in first trimester and Methimazole in second and third trimester for the management of hyperthyroidism. To balance the rare risks of hepatotoxicity (associated with Propylthiouracil (PTU) ) and methimazole embryopathy (associated with aplasia cutis and esophageal or choanal atresia), the [place] Thyroid Association and the [place] Association of Clinical Endocrinologists recommend treating hyperthyroidism with Propylthiouracil (PTU) in the first trimester and switching to methimazole in the second trimester. The [place] College of Obstetricians and Gynecologists states that [...] starting at 32 weeks. Family history of NE (myocardial infarct ion) 02/18/2021 Hyperthyroidism 02/18/2021 Anxiety [...] Dove is at 32w4d who presents to [facility] for an ultrasound and follow-up of [...] 2 obesity. Recommend follow up ultrasound with [facility] in 4 weeks for growth secondary to [...] Obstetrics Diann Spain CRNP [address] [place] [address] Supervision of high risk in second trimester*; Obesity in , antepartum; Multigravida of advanced maternal age in third trimester; Hyperthyroidism affecting in third trimester; Anxiety during ; Maternal asthma complicating ; Diet controlled gestational diabetes mellitus (GDM) in third trimester 07/13/2023 Office Visit Gynecology Obstetrics Eva Bush CRNP [address] [place] [address] 07/17/2023 Office Visit Gynecology Obstetrics Olivia Lawson PA-C [address] [place] [address] Nurse Gabriela [facility] [address] [place] [address] 07/27/2023 Imaging Radiology 07/27/2023 Office Visit Maternal Medicine Lorena Carver, [address], [place] [id number] 07/27/2023 Office Visit Gynecology Obstetrics Eva Bush CRNP [address] [place] [address] 08/03/2023 Office Visit Gynecology Obstetrics Diann Spain CRNP [address] [place] [address] 08/10/2023 Office Visit Gynecology Obstetrics Diann Spain CRNP [address] [place] [address] 08/14/2023 Telemedicine Endocrinology Vannesa Puente PA-C [address] [place] [address] 08/17/2023 Office Visit Gynecology Obstetrics Backer, KIRSTEN Royal [address] [place] [address] Health Maintenance Due Date Last Done Comments [...] gestational diabetes mellitus (GDM) in third trimester Supervision of high risk in second trimester- [...] trimester documented in this encounter Care Teams Marketing And Public Relations Manager Relationship Specialty Start Date End Date Jethro Stevens DO [address] [place] [address] PCP - General Family Medicine 02/18/21 documented as of this encounter
--- OUTSIDE RECORDS SUMMARY | 2023-08-25 07:31 | External Medical Summary | Summary of Care ---
Author Name Unknown Organization [facility] Address [address] [place] [address] Phone [phone] Care Team Providers Care A And P Technician Name Role Phone Mendoza Stevensvor Reji Primary Care Provider Encounter Details Date Type Department Care Team Description 06/01/2023 Orders Only Gynecology/Obstetrics [facility] [address] [place] [address] Mishel Sue [facility] [address] [place], [place] [id number] Allergies Active Allergy Reactions Severity Noted Date Comments Doxycycline 01/27/2023 Pollen 05/29/2013 Peanut Oil 05/29/2013 documented as of this encounter (statuses as of 06/01/2023) Medications Medication Sig Dispensed Refills Start Date [...] sugars 4x/day 1 Kit 0 03/06/2023 Active Metric Medical DevicesTouch Verio In Vitro Strip (Glucose Blood)Indications:Ge stational diabetes mellitus (GDM), antepartum, gestational diabetes method of control unspecified Use to check blood sugar four times daily: Fasting in the morning, then one hour after breakfast, one hour after lunch and one hour after dinner. 200 Strip 6 03/20/2023 Active Metric Medical DevicesTouch Ronit Lancets 33GIndications:Gesta tional diabetes mellitus (GDM), antepartum, [...] as of this encounter (statuses as of 06/01/2023) Active Problems Problem Noted Date GDM (gestational diabetes mellitus) 02/18 Overview: Diagnosed [...] 4 times daily. Overall BS look good Last Assessment & Plan: DISCUSSION: 1. Reviewed [...] maintain these target values. Report levels to MFM weekly. 3. Recommend windows administrator consult. Lifestyle changes are also indicated including [...] in women with a history of GDM. Supervision of high risk in se cond trimester 02/01/2023 Last Assessment & Plan: Starr reports vaginal [...] 02/01/2023 10:01 AM Last Assessment & Plan: CONSIDERATIONS: Discussed obstetrical risks associated with class II obesity (pre- BMI of 35 to 39.9) Reviewed that the accuracy of ultrasound at diagnosing anomalies is significantly decreased for women with an increased BMI. RECOMMENDATIONS: Recommend restricting weight gain during to 11-20 pounds. Patient should be referred for a nutrition consult. Recommend evaluation for signs and symptoms (snoring, excessive daytime sleepiness witnessed apnea or unexplained hypoxia) of obstructive sleep apnea. If any of these are present, referral to Sleep Medicine specialist for further evaluation should be considered. Recommend performing gestational diabetes mellitus screen now (if not performed at first visit) and repeat again at 26-28 weeks if early screen is normal. Recommend Maternal- Medicine ultrasound for anatomy at 20 weeks and for growth every 4 weeks thereafter. For patients with Class 2 obesity, we recommend weekly surveillance starting at 37 weeks. AMA (advanced maternal age) multigravida 35+ 02/01/2023 [...] patient s hyperthyroidism be managed during by market risk specialist. 2. Recommend PTU or Methimazole in first trimester and Methimazole in second and third trimester for the management of hyperthyroidism. To balance the rare risks of hepatotoxicity (associated with Propylthiouracil (PTU) ) and methimazole embryopathy (associated with aplasia cutis and esophageal or choanal atresia), the [place] Thyroid Association and the [place] Association of Clinical Endocrinologists recommend treating hyperthyroidism with Propylthiouracil (PTU) in the first trimester and switching to methimazole in the second trimester. The [place] [employer] of Obstetricians and Gynecologists states that [...] as of this encounter (statuses as of 06/01/2023) Resolved Problems Problem Noted Date Resolved Date [...] as of this encounter (statuses as of 06/01/2023) Immunizations Name Administration Dates Next Due Seasonal [...] Encounters Date Type Specialty Care Team Description 06/02/2023 Office Visit Maternal Medicine Ismael Oglesby, DO [address] [place] [address] 06/02/2023 Imaging Radiology 06/15/2023 Office Visit Gynecology Obstetrics Olivia Lawson PA-C [address] [place] [address] 06/22/2023 Telemedicine Nutrition Services Deana Dejesus, RDN [address] [place] [address] 06/29/2023 Imaging Radiology 06/29/2023 Office Visit Maternal Medicine Lior Valdes MD [address] [place] [address] 06/29/2023 Office Visit Gynecology Obstetrics Diann Spain CRNP [address] [place] [address] 07/13/2023 Office Visit Gynecology Obstetrics Eva Bush CRNP [address] [place] [address] 07/27/2023 Imaging Radiology 07/27/2023 Office Visit Maternal Medicine Lorena Carver, DO [address] [place] [address] 07/27/2023 Office Visit Gynecology Obstetrics Eva Bush CRNP [address] [place] [address] 08/03/2023 Office Visit Gynecology Obstetrics Backer, KIRSTEN Royal [address] [place] [address] 08/10/2023 Office Visit Gynecology Obstetrics Backer, KIRSTEN Royal [address] [place] [address] 08/14/2023 Telemedicine Endocrinology Vannesa Puente PA-C [address] [place] [address] 08/17/2023 Office Visit Gynecology Obstetrics Backer, KIRSTEN Royal [address] [place] [address] Health Maintenance Due Date Last Done Comments COVID-19 Vaccine (#1) 03/05/1986 Pneumococcal Vaccine: Pediatrics (0 to 5 Years) and At-Risk Patients (6 to 64 Years) (1 - PCV) 1991 Depression Screening, Annual for Pts 12 and Over 09/23/2021 09/23/2020 *SPIROMETRY ONCE FOR ASTHMA-ADULT 10/13/2022 Influenza Vaccine (FLU shot) (#1) 2023 09/23/2020, 08/09/2016, 08/08/2013 Diabetes Screening 04/25/2026 04/25/2023, 0 04/08/2022, 06/19/2021, Additional history exists Pap Smear 02/02/2028 02/01/2023 DTaP,Tdap,and Td Vaccines (8 - [...] filedocumented as of this encounter Care Teams A And P Technician Relationship Specialty Start Date End Date Jethro Stevnes DO [address] [place] [address] PCP - General Family Medicine 02/18/21 documented as of this encounter
--- OUTSIDE RECORDS SUMMARY | 2023-08-25 07:31 | External Medical Summary ---
Author Name Unknown Address Unknown Organization K01:[facility] [place] - [address] [place] [place] [address] Laboratory Report Ordering Provider Test Date Status EFRAIN DAVALOS 06/01/2023 09:16:37 Final Observation Date Value Abnormality Reference (Units ) Status Creatinine 06/01/2023 09:16:37 0.5 0.5-1.0 (mg/dL) Final Glomerular filtration rate/1.73 sq M.predicted [Volume Rate/Area] in Serum, Plasma or Blood by Creatinine-based formula (CKD-EPI) 06/01/2023 09:16:37 >90 >=60 (mL/min) Final Performing Location [facility] [place] [facility] - [address] [place] [address]
--- OUTSIDE RECORDS SUMMARY | 2023-08-25 07:31 | External Medical Summary | Summary of Care ---
Author Name Unknown Organization [facility] Address [address] [facility] [address] Phone [phone] Care Team Providers Care Potato Picker Name Role Phone RodneyJethrorip Primary Care Provider Reason for Visit * Reason Comments Outpatient Testing Encounter Details Date Type Department Care Team Description 06/01/2023 [facility] [address] [facility] [place] [address] [address] [facility] [address] [facility] [address] Supervision of high risk in second trimester Allergies Active Allergy Reactions Severity Noted [...] sugars 4x/day 1 Kit 0 03/06/2023 Active uBeam Verio In Vitro Strip (Glucose Blood)Indications:Ge stational diabetes mellitus (GDM), antepartum, gestational diabetes method of control unspecified Use to check blood sugar four times daily: Fasting in the morning, then one hour after breakfast, one hour after lunch and one hour after dinner. 200 Strip 6 03/20/2023 Active Chatousuch Delrylie Lancets 33GIndications:Gesta tional diabetes mellitus (GDM), antepartum, gestational diabetes method of control unspecified Use to check blood sugar four times daily: Fasting in the morning, then one hour after breakfast, one hour after lunch and one hour after dinner. 200 Each 6 03/20/2023 Active documented as of this encounter (statuses [...] maintain these target values. Report levels to [facility] weekly. 3. Recommend rehab technician consult. Lifestyle changes are also indicated [...] A1C - IRWIN 5.6 04/08/2022 07:10 AM Baseline Preeclampsia Labs Lab Results Component Value Date/Time PLATELET AUTO - IRWIN 338 02/01/2023 10:01 AM Last Assessment & [...] patient s hyperthyroidism be managed during by automotive glass specialist. 2. Recommend PTU or Methimazole in first trimester and Methimazole in second and third trimester for the management of hyperthyroidism. To balance the rare risks of hepatotoxicity (associated with Propylthiouracil (PTU) ) and methimazole embryopathy (associated with aplasia cutis and esophageal or choanal atresia), the [place] Thyroid Association and the [place] Association of Clinical Endocrinologists recommend treating hyperthyroidism with Propylthiouracil (PTU) in the first trimester and switching to methimazole in the second trimester. The [place] College of Obstetricians and Gynecologists states that [...] starting at 32 weeks. Family history of OH (myocardial infarct ion) 02/18/2021 Hyperthyroidism 02/18/2021 Anxiety [...] Maternal Medicine Ismael Oglesby, DO [address] [facility] [place] [address] 06/02/2023 Imaging Radiology 06/22/2023 Telemedicine Nutrition Services Deana Dejesus, RDN [address] [place] [address] 06/29/2023 Imaging Radiology 06/29/2023 Office Visit Maternal Medicine Lior Valdes MD [address] [facility] [place] [address] 06/29/2023 Office Visit Gynecology Obstetrics BackDiann martínez CRNP [address] [place] [address] 07/13/2023 Office Visit Gynecology Obstetrics Eva Bush CRNP [address] [place] [address] 07/27/2023 Imaging Radiology 07/27/2023 Office Visit Maternal Medicine WenAleena clayjennifer Bender, DO [address] [facility] [place] [address] 07/27/2023 Office Visit Gynecology Obstetrics Eva Bush CRNP [address] [place] [address] 08/03/2023 Office Visit Gynecology Obstetrics BackDiann martínez CRNP [address] [place] [address] 08/10/2023 Office Visit Gynecology Obstetrics BackerDiann CRNP [address] [place] [address] 08/14/2023 Telemedicine Endocrinology Vannesa Puente PA-C [address] [facility] [place] [address] 08/17/2023 Office Visit Gynecology Obstetrics Backer, KIRSTEN Royal [address] [place] [address] Pending Results Name Type Priority Associated Diagnoses Date /Time CBC WITH WBC DIFFERENTIAL AND ANEMIA REFLEX WORKUP Lab Routine Supervision of high risk in second trimester 06/01/2023 9:16 AM EDT SYPHILIS ANTIBODY SCREEN WITH REFLEX TO RPR Lab Routine Supervision of high risk in second trimester 06/01/2023 9:16 AM EDT ANEMIA CBC Lab Routine Supervision of high risk in second trimester 06/01/2023 9:16 AM EDT DIFFERENTIAL, AUTOMATED Lab Routine Supervision of high risk in second trimester 06/01/2023 9:16 AM EDT ANEMIA REFLEX CHEMISTRY HOLD Lab Routine Supervision of high risk in second trimester 06/01/2023 9:16 AM EDT SYPHILIS ANTIBODY SCREEN Lab Routine Supervision of high risk in second trimester 06/01/2023 9:16 AM EDT Health Maintenance Due Date Last [...] Diagnosis Supervision of high risk in second trimester Unspecified high-risk documented in this encounter Care Teams Potato Picker Relationship Specialty Start Date End Date Jethro Stevens DO [address] [place] [address] PCP - General Family Medicine 02/18/21 documented as of this encounter
--- OUTSIDE RECORDS SUMMARY | 2023-08-25 07:31 | External Medical Summary ---
Author Name Unknown Address Unknown Organization K01:[facility] [place] - [address] [place] [address] Laboratory Report Ordering Provider Test Date Status EFRAIN DAVALOS 06/01/2023 09:16:37 Final Observation Date Value Abnormality Reference (Units ) Status Treponema pallidum Ab [Presence] in Serum by Immunoassay 06/01/2023 09:16:37 Nonreactive Nonreactive Final Performing Location [facility] [place] - [address] [place] [address]
--- OUTSIDE RECORDS SUMMARY | 2023-08-25 07:31 | External Medical Summary | Summary of Care ---
Author Name Unknown Organization [facility] Address [address] [facility] [address] Phone [phone] Care Team Providers Care Wastewater Engineer Name Role Phone Rodney Jethro Floresrip Primary Care Provider Encounter Details Date Type Department Care Team Description 06/21/2023 Telephone [facility] Gynecology and Obstetrics [address] [place] [address] Zeynep Kinney MD [address] [place] [address] Allergies Active Allergy Reactions Severity Noted Date Comments Doxycycline 01/27/2023 Pollen 05/29/2013 Peanut Oil 05/29/2013 documented as of this encounter (statuses as of 06/21/2023) Medications Medication Sig Dispensed Refills Start Date [...] dinner. 200 Strip 6 03/20/2023 Active OneTouch Delrylie Lancets 33GIndications:Gesta tional diabetes mellitus (GDM), [...] as of this encounter (statuses as of 06/21/2023) Active Problems Problem Noted Date GDM (gestational [...] stable 06/19/23- not many sugars reported- stable Last Assessment & Plan: DISCUSSION: 1. [...] Report levels to MFM weekly. 3. Recommend rebrander consult. Lifestyle changes are also indicated including [...] 02/01/2023 10:01 AM Last Assessment & Plan: She presents for follow-up of growth. She has a history of AMA, class II obesity, hyperthyroidism (no current medications), asthma, and gestational diabetes (currently diet-controlled). Today's ultrasound notes the following: The estimated weight is appropriate for gestational age in the 29th percentile. The visualized anatomy is unremarkable in appearance. The DICKSON is normal. AMA (advanced maternal age) multigravida [...] patient s hyperthyroidism be managed during by welding process specialist. 2. Recommend PTU or Methimazole in [...] starting at 32 weeks. Family history of [place] (myocardial infarct ion) 02/18/2021 Hyperthyroidism 02/18/2021 Anxiety 02/18/2021 Graves disease 02/18/2021 Other allergic rhinitis 07/30/2001 Overview: ICD-10 update of inactive term Asthma with severity to be determined Overview: ICD-10 update of inactive term ATTN DEFIC NONHYPERACT 01/24/2000 EXT ASTHMA W-O STAT ASTH Dysmenorrhea Estimated Date of Delivery Comme nts Yes 08/20/2023 Based on Ultraso und documented as of this encounter (statuses as of 06/21/2023) Resolved Problems Problem Noted Date Resolved Date [...] as of this encounter (statuses as of 06/21/2023) Immunizations Name Administration Dates Next Due Seasonal [...] encounter Miscellaneous Notes * Telephone Encounter - Zeynep Kinney MD - 06/21/2023 11:37 AM EDT Check blood pressure regularly Low salt diet recommended Tylenol as needed Pt should be seen as she desires if the symptoms persists and do labs documented in this encounter Plan of Treatment Upcoming Encounters Date Type Specialty Care Team Description 06/29/2023 Imaging Radiology 06/29/2023 Office Visit Maternal Medicine Lior Valdes MD [address] [place] [address] 06/29/2023 Office Visit Gynecology Obstetrics Diann Spain CRNP [address] [place] [address] 07/13/2023 Office Visit Gynecology Obstetrics Eva Bush CRNP [address] [place] [address] 07/17/2023 Office Visit Gynecology Obstetrics Olivia Lawson PA-C [address] [place] [address] Nurse [facility] Pietro [address] [place] [address] 07/27/2023 Imaging Radiology 07/27/2023 Office Visit Maternal Medicine Lorena Carver, [address] [place] [address] 07/27/2023 Office Visit Gynecology Obstetrics Eva Bush CRNP [address] [place] [address] 08/03/2023 Office Visit Gynecology Obstetrics Diann Spain CRNP [address] [place] [address] 08/10/2023 Office Visit Gynecology Obstetrics BackDiann martínez CRNP [address] [place] [address] 08/14/2023 Telemedicine Endocrinology Vannesa Puente PA-C [address] [place] [address] 08/17/2023 Office Visit Gynecology Obstetrics Backer, KIRSTEN Royal [address] [place] [address] Health Maintenance Due Date Last Done Comments [...] filedocumented as of this encounter Care Teams Wastewater Engineer Relationship Specialty Start Date End Date Jethro Stevens DO [address] [place] [address] PCP - General Family Medicine 02/18/21 documented as of this encounter
--- OUTSIDE RECORDS SUMMARY | 2023-08-25 07:31 | External Medical Summary | Summary of Care ---
Author Name Unknown Organization [facility] Address [address] [facility] [place] [address] Phone [phone] Care Team Providers Care Inspector Canned Food Reconditioning Name Role Phone Mendoza Stevensvor Reji Primary Care Provider Reason for Visit * Reason Comments Return Visit Encounter Details Date Type Department Care Team Description 06/15/2023 Office Visit Gynecology/Obstetric s Opal Gibson [address] [place] [facility] [place] [address] Olivia Lawson PA-C [address] [place] [address] Nurse Arthur [facility] Return Pietro [address] [place] [address] Supervision of high risk in second trimester*; Obesity in , antepartum; Multigravida of advanced maternal age in third trimester; Hyperthyroidism affecting in third trimester; Anxiety during ; Maternal asthma complicating ; Gestational diabetes mellitus (GDM) in third trimester, gestational diabetes method of control unspecified Allergies Active Allergy Reactions Severity Noted Date Comments Doxycycline 01/27/2023 Pollen 05/29/2013 Peanut Oil 05/29/2013 documented as of this encounter (statuses as of 06/15/2023) Medications Medication Sig Dispensed Refills Start Date [...] Oral Tablet Take by mouth. 0 Active Modulation TherapeuticsTouch Verio Flex System w/Device KitIndications:Gesta tional diabetes [...] after dinner. 200 Strip 6 03/20/2023 Active Actimouch Delica Lancets 33GIndications:Gesta tional diabetes mellitus (GDM), [...] as of this encounter (statuses as of 06/15/2023) Active Problems Problem Noted Date GDM (gestational [...] 89 03/06/2023 07:20 AM HEMOGLOBIN A1C - KAPILER 5.6 04/08/2022 07:10 AM She reports her [...] good. Not testing every day 06/12/23-- stable Last Assessment & Plan: DISCUSSION: 1. [...] maintain these target values. Report levels to [facility] weekly. 3. Recommend dimensional integration engineer consult. Lifestyle changes are also indicated including [...] received GDM consult -- TSH 0.48 on 4/10/23 - follows with endocrine and plans to [...] patient s hyperthyroidism be managed during by juvenile justice specialist. 2. Recommend PTU or Methimazole in first trimester and Methimazole in second and third trimester for the management of hyperthyroidism. To balance the rare risks of hepatotoxicity (associated with Propylthiouracil (PTU) ) and methimazole embryopathy (associated with aplasia cutis and esophageal or choanal atresia), the [place] Thyroid Association and the [place] Association of Clinical Endocrinologists recommend treating hyperthyroidism with Propylthiouracil (PTU) in the first trimester and switching to methimazole in the second trimester. The [place] College of Obstetricians and Gynecologists states that [...] starting at 32 weeks. Family history of WI (myocardial infarct ion) 02/18/2021 Hyperthyroidism 02/18/2021 Anxiety 02/18/2021 Graves disease 02/18/2021 Other allergic rhinitis 07/30/2001 Overview: ICD-10 update of inactive term Asthma with severity to be determined Overview: ICD-10 update of inactive term ATTN DEFIC NONHYPERACT 01/24/2000 EXT ASTHMA W-O STAT ASTH Dysmenorrhea Estimated Date of Delivery Comme nts Yes 08/20/2023 Based on Ultraso und documented as of this encounter (statuses as of 06/15/2023) Resolved Problems Problem Noted Date Resolved Date [...] as of this encounter (statuses as of 06/15/2023) Immunizations Name Administration Dates Next Due Seasonal [...] Sign Reading Time Taken Comments Blood Pressure 120/72 06/15/2023 1:24 PM EDT Pulse - - Temperature - - Respiratory Rate - - Oxygen Saturation - - Inhaled Oxygen Concentration - - Weight 94.8 kg (209 lb) 06/15/2023 1:24 PM EDT Height 157.5 cm (5' 2") 06/15/2023 1:24 PM EDT Body Mass Index 38.23 06/15/2023 1:24 PM EDT documented in this encounter Progress Notes * Olivia Lawson PA-C - 06/15/2023 1:42 PM EDT 30w4d Last growth with MFM on 06/02: 29% with normal DICKSON. Has return appointment in about 2 weeks. Repeat CBC order to be completed with next visit. She is going to reach out to Endocrinology regarding needed TSH/labs. Previously seeing [facility], pt reports he left and not scheduled for another month with them. Last check 04/25 WNL. Denies bleeding/leaking/contractions. Baby is active. RTC in 2 weeks Olivia Lawson PA-C documented in this encounter Nursing Notes * Lakeshia Leung LPN - 06/15/2023 1:27 PM EDT 30w4d Needs thyroid levels checked. Wondering if she can have these checked with next visit and CBC. documented in this encounter Plan of Treatment Upcoming Encounters Date Type Specialty Care Team Description 06/22/2023 Telemedicine Nutrition Services Deana Dejesus, RICKY [address] [place] [address] [place] [address] 06/29/2023 Imaging Radiology 06/29/2023 Office Visit Maternal Medicine Lior Valdes MD [address] [place] [address] 06/29/2023 Office Visit Gynecology Obstetrics Diann Spain CRNP [address] [place] [address] 07/13/2023 Office Visit Gynecology Obstetrics Eva Bush CRNP [address] [place] [address] 07/17/2023 Office Visit Gynecology Obstetrics Olivia Lawson PA-C [address] [place] [address] Nurse Gabriela Gibson Beginnings Return Pietro [address] [place] [address] 07/27/2023 Imaging Radiology 07/27/2023 Office Visit Maternal Medicine Lorena Carver DO [address] [place] [address] 07/27/2023 Office Visit Gynecology Obstetrics Eva Bush CRNP [address] [place] [address] 08/03/2023 Office Visit Gynecology Obstetrics Diann Spain CRNP [address] [place] [address] 08/10/2023 Office Visit Gynecology Obstetrics Diann Sapin CRNP [address] [place] [address] 08/14/2023 Telemedicine Endocrinology Vannesa Puente PA-C [address] [place] [address] 08/17/2023 Office Visit Gynecology Obstetrics Backer, KIRSTEN Royla [address] [place] [address] Scheduled Orders Name Type Priority Associated Diagnoses Orde r Schedule CBC Lab Routine Supervision of high risk in second trimester Expected: 06/29/2023, Expires: 06/15/2024 Health Maintenance Due Date Last Done Comments [...] puerperium, unspecified as to episode of care Gestational diabetes mellitus (GDM) in third trimester, gestational diabetes method of control unspecified documented in this encounter Care Teams Inspector Canned Food Reconditioning Relationship Specialty Start Date End Date Jethro Stevens DO [address] [place] [address] PCP - General Family Medicine 02/18/21 documented as of this encounter
--- OUTSIDE RECORDS SUMMARY | 2023-08-25 07:31 | External Medical Summary ---
Author Name Unknown Address Unknown Organization K01:[facility] - [address] [place] [address] Laboratory Report Ordering Provider Test Date Status EFRAIN DAVALOS 06/01/2023 09:16:37 Final Observation Date Value Abnormality Reference (Units ) Status Ferritin 06/01/2023 09:16:37 16 13-150 (ng /mL) Final Performing Location [facility] - [address] [place] [address]
--- OUTSIDE RECORDS SUMMARY | 2023-08-25 07:31 | External Medical Summary | Summary of Care ---
Author Name Unknown Organization [facility] Address [address] [place] [address] Phone [phone] Care Team Providers Care Auto Electrician Name Role Phone Negro Stevensr Reji Primary Care Provider Encounter Details Date Type Department Care Team Description 06/05/2023 Telephone Gynecology/Obstetrics [facility] [address] [facility] [place] [address] Mishel Sue, SAROJ [address] [place] [facility] [place] [address] Allergies Active Allergy Reactions Severity Noted Date Comments Doxycycline 01/27/2023 Pollen 05/29/2013 Peanut Oil 05/29/2013 documented as of this encounter (statuses as of 06/05/2023) Medications Medication Sig Dispensed Refills Start Date [...] as of this encounter (statuses as of 06/05/2023) Active Problems Problem Noted Date GDM (gestational [...] Report levels to MFM weekly. 3. Recommend internal audit senior manager consult. Lifestyle changes are also indicated including [...] patient s hyperthyroidism be managed during by denial resolution specialist. 2. Recommend PTU or Methimazole in first trimester and Methimazole in second and third trimester for the management of hyperthyroidism. To balance the rare risks of hepatotoxicity (associated with Propylthiouracil (PTU) ) and methimazole embryopathy (associated with aplasia cutis and esophageal or choanal atresia), the [place] Thyroid Association and the [place] Association of Clinical Endocrinologists recommend treating hyperthyroidism with Propylthiouracil (PTU) in the first trimester and switching to methimazole in the second trimester. The [place] College of Obstetricians and Gynecologists states that [...] starting at 32 weeks. Family history of [place] (myocardial infarct ion) 02/18/2021 Hyperthyroidism 02/18/2021 Anxiety 02/18/2021 Graves disease 02/18/2021 Other allergic rhinitis 07/30/2001 Overview: ICD-10 update of inactive term Asthma with severity to be determined Overview: ICD-10 update of inactive term ATTN DEFIC NONHYPERACT 01/24/2000 EXT ASTHMA W-O STAT ASTH Dysmenorrhea Estimated Date of Delivery Comme nts Yes 08/20/2023 Based on Ultraso und documented as of this encounter (statuses as of 06/05/2023) Resolved Problems Problem Noted Date Resolved Date [...] as of this encounter (statuses as of 06/05/2023) Immunizations Name Administration Dates Next Due Seasonal [...] Telephone Encounter - Ban Rhodes LPN - 06/05/2023 8:21 AM EDT MyG sent with normal results. * Telephone Encounter - Ban Rhodes LPN - 06/05/2023 8:20 AM EDT ----- Message from Mishel Sue CNM sent at 06/05/2023 8:18 AM EDT ----- Please let patient know she screened negative for syphilis. Thanks! Mishel Sue CNM documented in this encounter Plan of Treatment Upcoming Encounters Date Type Specialty Care Team Description 06/15/2023 Office Visit Gynecology Obstetrics Olivia Lawson PA-C [address] [place] [address] 06/22/2023 Telemedicine Nutrition Services Deaan Dejesus, RDN [address] [place] [address] 06/29/2023 Imaging Radiology 06/29/2023 Office Visit Maternal Medicine Lior Valdes MD [address] [place] [address] 06/29/2023 Office Visit Gynecology Obstetrics Diann Spain CRNP [address] [place] [address] 07/13/2023 Office Visit Gynecology Obstetrics Eva Bush CRNP [address] [place] [address] 07/27/2023 Imaging Radiology 07/27/2023 Office Visit Maternal Medicine Lorena Carver DO [address] [place] [address] 07/27/2023 Office Visit Gynecology Obstetrics Eva Bush CRNP [address] [place] [address] 08/03/2023 Office Visit Gynecology Obstetrics Backer, KIRSTEN Royal [address] [place] [address] 08/10/2023 Office Visit Gynecology Obstetrics Backer, KIRSTEN Royal [address] [place] [address] 08/14/2023 Telemedicine Endocrinology Vannesa Puente PA-C [address] [place] [address] 08/17/2023 Office Visit Gynecology Obstetrics Backer, KIRSTEN Royal [address] [place] [address] Health Maintenance Due Date Last Done Comments [...] filedocumented as of this encounter Care Teams Auto Electrician Relationship Specialty Start Date End Date Jethro Stevens DO [address] [place] [address] PCP - General Family Medicine 02/18/21 documented as of this encounter
--- OUTSIDE RECORDS SUMMARY | 2023-08-25 07:31 | External Medical Summary | Summary of Care ---
Author Name Unknown Organization [facility] Address [address] [facility] [place] [address] Phone [phone] Care Team Providers Care Tuber Machine Operator Helper Name Role Phone Mendoza Stevensvor Reji Primary Care Provider Reason for Visit * Reason Comments Return Visit Encounter Details Date Type Department Care Team Description 06/01/2023 Office Visit Gynecology/Obstetrics Opal Gibson [address] [place] [address] Diann Spain CRNP [address] [place] [address] Supervision of high risk in second trimester*; Obesity in , antepartum; Multigravida of advanced maternal age in third trimester; Hyperthyroidism affecting in third trimester; Anxiety during ; Maternal asthma complicating ; Diet controlled gestational diabetes mellitus (GDM) in third trimester; Need for prophylactic vaccination with combined tnrzxzbbmy-avifklt-fxy tussis (DTP) vaccine Allergies Active Allergy Reactions Severity Noted Date [...] Oral Tablet Take by mouth. 0 Active Pump! Verio Flex System w/Device KitIndications:Gesta tional diabetes mellitus (GDM), antepartum, gestational diabetes method of control unspecified Use as directed. Check blood sugars 4x/day 1 Kit 0 03/06/2023 Active TrustedPlacesuch Verio In Vitro Strip (Glucose Blood)Indications:Ge stational diabetes mellitus (GDM), antepartum, gestational diabetes method of control unspecified Use to check blood sugar four times daily: Fasting in the morning, then one hour after breakfast, one hour after lunch and one hour after dinner. 200 Strip 6 03/20/2023 Active Pump! DelCrownPeak Lancets 33GIndications:Gesta tional diabetes mellitus (GDM), antepartum, [...] Report levels to MFM weekly. 3. Recommend spring tacker consult. Lifestyle changes are also indicated including [...] patient s hyperthyroidism be managed during by animal control specialist. 2. Recommend PTU or Methimazole in first trimester and Methimazole in second and third trimester for the management of hyperthyroidism. To balance the rare risks of hepatotoxicity (associated with Propylthiouracil (PTU) ) and methimazole embryopathy (associated with aplasia cutis and esophageal or choanal atresia), the [place] Thyroid Association and the [place] Association of Clinical Endocrinologists recommend treating hyperthyroidism with Propylthiouracil (PTU) in the first trimester and switching to methimazole in the second trimester. The [place] College of Obstetricians and Gynecologists states that [...] starting at 32 weeks. Family history of [place] (myocardial infarct ion) 02/18/2021 Hyperthyroidism 02/18/2021 Anxiety [...] Sign Reading Time Taken Comments Blood Pressure 128/68 06/01/2023 8:28 AM EDT Pulse - - Temperature - - Respiratory Rate - - Oxygen Saturation - - Inhaled Oxygen Concentration - - Weight 94.8 kg (209 lb) 06/01/2023 8:28 AM EDT Height 157.5 cm (5' 2") 06/01/2023 8:28 AM EDT Body Mass Index 38.23 06/01/2023 8:28 AM EDT documented in this encounter Progress Notes * KIRSTEN Fox - 06/01/2023 8:47 AM EDT 28w 4d Doing well, accepts Tdap today. Baby is moving well, no cramping/bleeding. Discussed FKC. Ok to use thin layer of OTC hydrocortisone ointment on sunburn. Reviewed other comfort measures. M U/S and visit scheduled tomorrow. Reports good glycemic control, reporting levels to ADAPT. 2 week return KIRSTEN Reed documented in this encounter Nursing Notes * LEE Flood - 06/01/2023 8:38 AM EDT 28w4d Pt denies any concerns, wants tdap today. Patient here for tdap injection. Patient doing well no complaints. Injection given IM as ordered. Patient tolerated well. Patient to follow up as directed. Patient instructed to call if any complications. Patient verbalized understanding of instructions given. Injection site: Left Deltoid Medication Source: Dispensed stock medication documented in this encounter Plan of Treatment Upcoming Encounters Date Type Specialty Care Team Description 06/02/2023 Office Visit Maternal Medicine Ismael Oglesby, DO [address] [place] [address] 06/02/2023 Imaging Radiology 06/22/2023 Telemedicine Nutrition Services Deana Dejesus, RDN [address] [place] [address] 06/29/2023 Imaging Radiology 06/29/2023 Office Visit Maternal Medicine Lior Valdes MD [address] [place] [address] 06/29/2023 Office Visit Gynecology Obstetrics BackerDiann CRNP [address] [place] [address] 07/13/2023 Office Visit Gynecology Obstetrics Eva Bush CRNP [address] [place] [address] 07/27/2023 Imaging Radiology 07/27/2023 Office Visit Maternal Medicine Lorena Carver Bender, [address] [place] [address] 07/27/2023 Office Visit Gynecology Obstetrics Eva Bush CRNP [address] [place] [address] 08/03/2023 Office Visit Gynecology Obstetrics BackerDiann CRNP [address] [place] [address] 08/10/2023 Office Visit Gynecology Obstetrics BackerDiann CRNP [address] [place] [address] 08/14/2023 Telemedicine Endocrinology Vannesa Puente PA-C [address] [place], [place] [address] 08/17/2023 Office Visit Gynecology Obstetrics Backer, DiannKIRSTEN Curran [address] [facility] [place] [address] Health Maintenance Due Date Last Done Comments [...] in third trimester Need for prophylactic vaccination with combined kgvbzhhwfb-odixvih-gvegzsdfc (DTP) vaccine documented in this encounter Care Teams Tuber Machine Operator Helper Relationship Specialty Start Date End Date Jethro Stevens, [address] [place] [address] PCP - General Family Medicine 02/18/21 documented as of this encounter
--- OUTSIDE RECORDS SUMMARY | 2023-08-25 07:31 | External Medical Summary ---
Author Name Unknown Address Unknown Organization K01:LABORATORY [facility] - [facility] [address] [facility] [place] [address] Laboratory Report Ordering Provider Test Date Status ANOOPKEVINY 06/01/2023 09:16:37 Final Observation Date Value Abnormality Reference (Units ) Status Retic, % (auto) 06/01/2023 09:16:37 1.71 0.80-1.90 (%) Final Reticulocytes, Absolute 06/01/2023 09:16:37 68.6 31.3-100.1 (K/uL) Final Reticulocyte fraction, immature 06/01/2023 09:16:37 21.7 Above high normal 2.5-20.6 (%) Final Reticulocyte HGB 06/01/2023 09:16:37 29.4 Below low normal 29.7-37.4 (pg) Final Performing Location LABORATORY [facility] - [address] [facility] [place] [address]
--- OUTSIDE RECORDS SUMMARY | 2023-08-25 07:31 | External Medical Summary | Summary of Care ---
Author Name Unknown Organization [facility] Address [address] [place] [address] Phone [phone] Care Team Providers Care Blow Molder Name Role Phone Mendoza Stevensvor Reji Primary Care Provider Reason for Visit * Reason Comments Ultrasound Encounter Details Date Type Department Care Team Description 06/02/2023 Office Visit Plant Engineering Supervisor Obstetrics Maternal Medicine, [place] [address] [place], [place] [id number] Ismael Oglesby DO [address] [place], [place] [phone] Obesity in , antepartum*; Multigravida of advanced maternal age in third [...] Oral Tablet Take by mouth. 0 Active OneToKibin Verio Flex System w/Device KitIndications:Gesta tional diabetes mellitus (GDM), antepartum, gestational diabetes method of control unspecified Use as directed. Check blood sugars 4x/day 1 Kit 0 03/06/2023 Active WiseBanyanTouch Verio In Vitro Strip (Glucose Blood)Indications:Ge stational diabetes mellitus (GDM), antepartum, gestational diabetes method of control unspecified Use to check blood sugar four times daily: Fasting in the morning, then one hour after breakfast, one hour after lunch and one hour after dinner. 200 Strip 6 03/20/2023 Active WiseBanyanTouch Delica Lancets 33GIndications:Gesta tional diabetes mellitus (GDM), [...] Report levels to MFM weekly. 3. Recommend manager risk consult. Lifestyle changes are also indicated including [...] no anomalies were seen today. Hyperthyroidism affecting 03/1 03/2023 Overview: Hyperthyroid / Graves disease Did have [...] patient s hyperthyroidism be managed during by catalog specialist. 2. Recommend PTU or Methimazole in first trimester and Methimazole in second and third trimester for the management of hyperthyroidism. To balance the rare risks of hepatotoxicity (associated with Propylthiouracil (PTU) ) and methimazole embryopathy (associated with aplasia cutis and esophageal or choanal atresia), the [place] Thyroid Association and the [place] Association of Clinical Endocrinologists recommend treating hyperthyroidism with Propylthiouracil (PTU) in the first trimester and switching to methimazole in the second trimester. The [place] College of Obstetricians and Gynecologists states that [...] 06/05/2023) Immunizations Name Administration Dates Next Due DT [...] as of this encounter Progress Notes * Ismael Oglesby DO - 06/02/2023 10:50 AM EDT MATERNAL MEDICINE VISIT Starr Dove is at 28w5d who presents to [facility] for an ultrasound. She is being seen today by Maternal- Medicine for the following reasons: Problem List Items Addressed This Visit Obesity in , antepartum - Primary She presents for follow-up of growth. She [...] Maternal asthma complicating GDM (gestational diabetes mellitus) For full report, please refer to ultrasound report provided separately. RECOMMENDATIONS: Recommend surveillance starting at 37 weeks secondary to class II obesity. Recommend follow up ultrasound with [facility] in 4 weeks for growth. Continue endocrinology follow-up of hyperthyroidism. Thank you for allowing us to participate in the care of this patient. Please call with any questions. Ismael Oglesby DO 06/02/2023 10:50 AM documented in this encounter Miscellaneous Notes * Assessment & Plan Note - Ismael Oglesby DO - 06/02/2023 10:49 AM EDT Associated Problem(s): Obesity in , antepartum She presents for follow-up of growth. She has a history of AMA, class II obesity, hyperthyroidism (no current medications), asthma, and gestational diabetes (currently diet-controlled). Today's ultrasound notes the following: The estimated weight is appropriate for gestational age in the 29th percentile. The visualized anatomy is unremarkable in appearance. The DICKSON is normal. documented in this encounter Plan of Treatment Upcoming Encounters Date Type Specialty Care Team Description 06/15/2023 Office Visit Gynecology Obstetrics Olivia Lawson PA-C [address] [place] [address] 06/22/2023 Telemedicine Nutrition Services Deana Dejesus, RDN [address] [place] [address] 06/29/2023 Imaging Radiology 06/29/2023 Office Visit Maternal Medicine Lior Valdes MD [address] [place] [address] 06/29/2023 Office Visit Gynecology Obstetrics Diann Spain CRNP [address] [place] [address] 07/13/2023 Office Visit Gynecology Obstetrics Eva Bush CRNP [address] [place] [address] 07/27/2023 Imaging Radiology 07/27/2023 Office Visit Maternal Medicine Lorena Carver DO [address] [place] [address] 07/27/2023 Office Visit Gynecology Obstetrics Eva Bush CRNP [address] [place] [address] 08/03/2023 Office Visit Gynecology Obstetrics Diann Spain CRNP [address] [place] [address] 08/10/2023 Office Visit Gynecology Obstetrics Diann Spain CRNP [address] [place] [address] 08/14/2023 Telemedicine Endocrinology Vannesa Puente PA-C [address] [place] [address] 08/17/2023 Office Visit Gynecology Obstetrics Diann Spain CRNP [address] [place] [address] Health Maintenance Due Date Last Done Comments [...] as of this encounter Visit Diagnoses Diagnosis Obesity in , antepartum- Primary Obesity complicating , childbirth, or the puerperium, antepartum condition or complication Multigravida of advanced maternal age in third trimester Hyperthyroidism affecting in third trimester Maternal asthma complicating Other current maternal conditions classifiable elsewhere, complicating , childbirth, or the puerperium, unspecified as to episode of care Diet controlled gestational diabetes mellitus (GDM) in third trimester documented in this encounter Care Teams Blow Molder Relationship Specialty Start Date End Date Jethro Stevens DO [address] [place] [address] PCP - General Family Medicine 02/18/21 documented as of this encounter
--- OUTSIDE RECORDS SUMMARY | 2023-08-25 07:31 | External Medical Summary | Summary of Care ---
Author Name Unknown Organization [facility] Address [address] [place] [address] Phone [phone] Care Team Providers Care Milk Of Lime Slaker Name Role Phone Mendoza Stevensvor Reji Primary Care Provider Reason for Visit * Reason Onset Date Comments Abnormal Test Results 06/01/2023 Encounter Details Date Type Department Care Team Description 06/01/2023 Telephone Gynecology/Obstetrics [facility] [address] [place] [address] [facility] [address] [place] [address] Abnormal Test Results Allergies Active Allergy Reactions Severity Noted Date [...] sugars 4x/day 1 Kit 0 03/06/2023 Active [employer] Verio In Vitro Strip (Glucose Blood)Indications:Ge stational diabetes mellitus (GDM), antepartum, gestational diabetes method of control unspecified Use to check blood sugar four times daily: Fasting in the morning, then one hour after breakfast, one hour after lunch and one hour after dinner. 200 Strip 6 03/20/2023 Active [employer] Ronit Lancets 33GIndications:Gesta tional diabetes mellitus (GDM), [...] Report levels to MFM weekly. 3. Recommend typing checker consult. Lifestyle changes are also indicated including [...] patient s hyperthyroidism be managed during by vaccines solutions specialist. 2. Recommend PTU or Methimazole in [...] starting at 32 weeks. Family history of IA (myocardial infarct ion) 02/18/2021 Hyperthyroidism 02/18/2021 Anxiety [...] encounter Miscellaneous Notes * Telephone Encounter - Sharon Breaux LPN - 06/01/2023 3:45 PM EDT Phone call from pt. Pt aware and verbalizes understanding Sharon Breaux LPN 06/01/2023 3:45 PM * Telephone Encounter - Sanjuana Puente LPN - 06/01/2023 2:33 PM EDT LMTRC * Telephone Encounter - Sanjuana Puente LPN - 06/01/2023 2:33 PM EDT ----- Message from Mishel Sue CNM sent at 06/01/2023 2:19 PM EDT ----- Please let patient know her CBC showed anemia. Rx for Vitron C PO BID and Colace 100mg PO BID prn constipation. Repeat CBC at 32 weeks. Thanks! Mishel Sue CNM documented in this encounter Plan of Treatment Upcoming Encounters Date Type Specialty Care Team Description 06/02/2023 Office Visit Maternal Medicine Ismael Oglesby, DO [address] [facility] [place] [address] 06/02/2023 Imaging Radiology 06/15/2023 Office Visit Gynecology Obstetrics Olivia Lawson PA-C [address] [place] [address] 06/22/2023 Telemedicine Nutrition Services Deana Dejesus, RDN [address] [place], [place] [address] 06/29/2023 Imaging Radiology 06/29/2023 Office Visit Maternal Medicine Lior Valdes MD [address] [place] [address] 06/29/2023 Office Visit Gynecology Obstetrics BackerDiann CRNP [address] [place], [place] [address] 07/13/2023 Office Visit Gynecology Obstetrics McHailEva CRNP [address] [place], [place] [address] 07/27/2023 Imaging Radiology 07/27/2023 Office Visit Maternal Medicine Lorena Carver DO [address] [place] [address] 07/27/2023 Office Visit Gynecology Obstetrics McHEva vuong CRNP [address] [place], [place] [address] 08/03/2023 Office Visit Gynecology Obstetrics BackerDiann CRNP [address] [place] [address] 08/10/2023 Office Visit Gynecology Obstetrics BackerDiann CRNP [address] [place], [place] [address] 08/14/2023 Telemedicine Endocrinology Vannesa Puente PA-C [address] [place], [place] [phone] 08/17/2023 Office Visit Gynecology Obstetrics BackerDiann CRNP [address] [place] [address] Health Maintenance Due Date Last Done Comments [...] filedocumented as of this encounter Care Teams Milk Of Lime Slaker Relationship Specialty Start Date End Date Jethro Stevens DO [address] [place] [address] PCP - General Family Medicine 02/18/21 documented as of this encounter
--- OUTSIDE RECORDS SUMMARY | 2023-08-25 07:31 | External Medical Summary ---
Author Name Unknown Address Unknown Organization K01:LABORATORY [facility] [place] [address] [place] [address] Laboratory Report Ordering Provider Test Date Status EFRAIN DAVALOS 06/01/2023 09:16:37 Final Observation Date Value Abnormality Reference (Units ) Status Iron 06/01/2023 09:16:37 46 33-151 (ug/dL) Final Iron-binding capacity 06/01/2023 09:16:37 439 Above high normal 250-425 (ug/dL) Final Transferrin Sat % 06/01/2023 09:16:37 10 Below low normal 15-55 (%) Final Performing Location LABORATORY [facility] [place] - [address] [place] [address]
--- OUTSIDE RECORDS SUMMARY | 2023-08-25 07:31 | External Medical Summary ---
Author Name Unknown Address Unknown Organization K01:LABORATORY [facility] [place] - [address] [place] [address] Laboratory Report Ordering Provider Test Date Status EFRAIN DAVALOS 06/01/2023 09:16:37 Final Observation Date Value Abnormality Reference (Units ) Status SYNC LEUKOCYTES IN BLOOD BY AUTOMATED COUNT 06/01/2023 09:16:37 10.64 4.00-10.80 (K/uL) Final Segs 06/01/2023 09:16:37 78.5 Above high normal 40.0-75.0 (%) Final Lymphs % 06/01/2023 09:16:37 12.2 Below low normal 18.0-42.0 (%) Final Monos 06/01/2023 09:16:37 6.0 1.0-11.0 (%) Final Eosinophils 06/01/2023 09:16:37 1.9 0.0-6.0 (%) Final Basos 06/01/2023 09:16:37 0.6 0.0-2.0 (%) Final Immature Granulocyte, Percent 06/01/2023 09:16:37 0.8 0.0-2.0 (%) Final Absolute Segs 06/01/2023 09:16:37 8.36 Above high normal 1.80-7.70 (K/uL) Final Lymphs, absolute 06/01/2023 09:16:37 1.30 1.00-4.80 (K/ul) Final Monos, Abs 06/01/2023 09:16:37 0.64 0.00-1.10 (K/uL) Final Eos, Abs 06/01/2023 09:16:37 0.20 0.00-0.70 (K/uL) Final Basos, Abs 06/01/2023 09:16:37 0.06 0.00-0.20 (K/uL) Final Immature Granulocytes, Number 06/01/2023 09:16:37 0.08 0.00-0.20 (K/uL) Final Performing Location LABORATORY [facility] [place] - [address] [facility] [address]
--- OUTSIDE RECORDS SUMMARY | 2023-08-25 07:31 | External Medical Summary | Summary of Care ---
Author Name Unknown Organization [facility] Address [address] [place] [address] Phone [phone] Care Team Providers Care Shopper Name Role Phone Mendoza Stevensvor Reji Primary Care Provider Encounter Details Date Type Department Care Team Description 06/01/2023 Orders Only Gynecology/Obstetrics [facility] [address] [place] [address] Mishel Sue [facility] [address] [place] [address] Antepartum anemia* Allergies Active Allergy Reactions Severity Noted Date [...] sugars 4x/day 1 Kit 0 03/06/2023 Active [employer] Verio In Vitro Strip (Glucose Blood)Indications:Ge stational diabetes mellitus (GDM), antepartum, gestational diabetes method of control unspecified Use to check blood sugar four times daily: Fasting in the morning, then one hour after breakfast, one hour after lunch and one hour after dinner. 200 Strip 6 03/20/2023 Active [employer] Delrylie Lancets 33GIndications:Gesta tional diabetes mellitus (GDM), [...] Report levels to MFM weekly. 3. Recommend fun house attendant consult. Lifestyle changes are also indicated including [...] patient s hyperthyroidism be managed during by calibration specialist. 2. Recommend PTU or Methimazole in first trimester and Methimazole in second and third trimester for the management of hyperthyroidism. To balance the rare risks of hepatotoxicity (associated with Propylthiouracil (PTU) ) and methimazole embryopathy (associated with aplasia cutis and esophageal or choanal atresia), the [place] [employer] Association and the [place] Association of Clinical Endocrinologists recommend treating hyperthyroidism with Propylthiouracil (PTU) in the first trimester and switching to methimazole in the second trimester. The [place] [employer] Obstetricians and Gynecologists states that [...] Maternal Medicine Ismael Oglesby, DO [address] [place] [address] 06/02/2023 Imaging Radiology 06/15/2023 Office Visit Gynecology Obstetrics Olivia Lawson PA-C [address] [place] [address] 06/22/2023 Telemedicine Nutrition Services Deana Dejesus, RDN [address] [place] [address] 06/29/2023 Imaging Radiology 06/29/2023 Office Visit Maternal Medicine Lior Valdes MD [address] [place] [address] 06/29/2023 [facility] [address] [place] [address] 07/13/2023 Office Visit Gynecology Obstetrics Eva Bush CRNP [address] [place] [address] 07/27/2023 Imaging Radiology 07/27/2023 Office Visit Maternal Medicine Lorena Carver, DO [address] [place] [address] 07/27/2023 Office Visit Gynecology Obstetrics Eva Bush CRNP [address] [place] [address] 08/03/2023 Office Visit Gynecology Obstetrics BackerDiann CRNP [address] [place] [address] 08/10/2023 Office Visit Gynecology Obstetrics BackerDiann CRNP [address] [place] [address] 08/14/2023 Telemedicine Endocrinology Vannesa Puente PA-C [address] [place] [address] 08/17/2023 Office Visit Gynecology Obstetrics BackerDiann CRNP [address] [place] [address] Scheduled Orders Name Type Priority Associated Diagnoses Orde r Schedule CBC WITH WBC DIFFERENTIAL AND ANEMIA REFLEX WORKUP Lab Routine Antepartum anemia Expected: 06/01/2023 (Approximate), Expires: 06/01/2024 Health Maintenance Due Date Last Done Comments [...] as of this encounter Visit Diagnoses Diagnosis Antepartum anemia- Primary Anemia, antepartum documented in this encounter Care Teams Shopper Relationship Specialty Start Date End Date Jethro Stevens DO [address] [place] [address] PCP - General Family Medicine 02/18/21 documented as of this encounter
--- OUTSIDE RECORDS SUMMARY | 2023-08-25 07:31 | External Medical Summary | Summary of Care ---
Author Name Unknown Organization [facility] Address [address] [place] [address] Phone [phone] Care Team Providers Care Manager Staffing Name Role Phone Mendoza Stevensvor Reji Primary Care Provider Reason for Visit * Reason Comments Ultrasound Encounter Details Date Type Department Care Team Description 06/02/2023 Office Visit Pellet Mill Operator Obstetrics Maternal Medicine, [place] [address] [place], [place] [phone] Ismael Oglesby DO [address] [place], [place] [id number] Obesity in , antepartum*; Multigravida of advanced maternal age in third trimester; Hyperthyroidism affecting in third trimester; Maternal asthma complicating ; Diet controlled gestational diabetes mellitus (GDM) in third trimester Allergies Active Allergy Reactions Severity Noted Date Comments Doxycycline 01/27/2023 Pollen 05/29/2013 Peanut Oil 05/29/2013 documented as of this encounter (statuses as of 06/02/2023) Medications Medication Sig Dispensed Refills Start Date [...] Oral Tablet Take by mouth. 0 Active [employer] Verio Flex System w/Device KitIndications:Gesta tional diabetes mellitus (GDM), antepartum, gestational diabetes method of control unspecified Use as directed. Check blood sugars 4x/day 1 Kit 0 03/06/2023 Active [employer] Verio In Vitro Strip (Glucose Blood)Indications:Ge stational diabetes mellitus (GDM), antepartum, gestational diabetes method of control unspecified Use to check blood sugar four times daily: Fasting in the morning, then one hour after breakfast, one hour after lunch and one hour after dinner. 200 Strip 6 03/20/2023 Active [employer] Delica Lancets 33GIndications:Gesta tional diabetes mellitus (GDM), [...] as of this encounter (statuses as of 06/02/2023) Active Problems Problem Noted Date GDM (gestational [...] Report levels to MFM weekly. 3. Recommend turntable man consult. Lifestyle changes are also indicated including [...] patient s hyperthyroidism be managed during by software quality specialist. 2. Recommend PTU or Methimazole in first trimester and Methimazole in second and third trimester for the management of hyperthyroidism. To balance the rare risks of hepatotoxicity (associated with Propylthiouracil (PTU) ) and methimazole embryopathy (associated with aplasia cutis and esophageal or choanal atresia), the [place] [employer] and the [place] Association of Clinical Endocrinologists recommend treating hyperthyroidism with Propylthiouracil (PTU) in the first trimester and switching to methimazole in the second trimester. The [place] College of Obstetricians and Gynecologists states that [...] as of this encounter (statuses as of 06/02/2023) Resolved Problems Problem Noted Date Resolved Date [...] as of this encounter (statuses as of 06/02/2023) Immunizations Name Administration Dates Next Due Seasonal [...] of this encounter Progress Notes * Ismael Oglesby, - 06/02/2023 10:50 AM EDT MATERNAL MEDICINE VISIT Starr Dove is at 28w5d who presents to [facility] for an ultrasound. She is being [...] II obesity. Recommend follow up ultrasound with [facility] in 4 weeks for growth. Continue [...] Visit Gynecology Obstetrics Olivia Lawson PA-C [address] [facility] [place] [address] 06/22/2023 Telemedicine Nutrition Services Deana Dejesus, RDN [address] [place] [address] 06/29/2023 Imaging Radiology 06/29/2023 Office Visit Maternal Medicine Lior Valdes MD [address] [place] [address] 06/29/2023 Office Visit Gynecology Obstetrics BackDiann martínez CRNP [address] [place] [address] 07/13/2023 Office Visit Gynecology Obstetrics Eva Bush CRNP [address] [place] [address] 07/27/2023 Imaging Radiology 07/27/2023 Office Visit Maternal Medicine Wen Lorenajennifer Bender DO [address] [place] [address] 07/27/2023 Office Visit Gynecology Obstetrics Eva Bush CRNP [address] [place], [place] [address] 08/03/2023 Office Visit Gynecology Obstetrics BackerDiann CRNP [address] [place] [address] 08/10/2023 Office Visit Gynecology Obstetrics BackerDiann CRNP [address] [place] [address] 08/14/2023 Telemedicine Endocrinology Vannesa Puente PA-C [address] [place], [place] [phone] 08/17/2023 Office Visit Gynecology Obstetrics Backer, DiannKIRSTEN Reed [address] [place] [address] Health Maintenance Due Date Last Done Comments [...] trimester documented in this encounter Care Teams Manager Staffing Relationship Specialty Start Date End Date Jethro Stevens DO [address] [place] [address] PCP - General Family Medicine 02/18/21 documented as of this encounter
--- OUTSIDE RECORDS SUMMARY | 2023-08-25 07:31 | External Medical Summary | Summary of Care ---
Author Name Unknown Organization [facility] Address [address] [facility] [place] [address] Phone [phone] Care Team Providers Care Assembly Inspector Helper Name Role Phone Mendoza Stevensvor Reji Primary Care Provider Encounter Details Date Type Department Care Team Description 06/22/2023 Nurse Only Gynecology/Obstetrics [facility] [address] [place] [address] Gw, Nurse Obgyn Injection [address] [place] [address] Allergies Active Allergy Reactions Severity Noted Date Comments Doxycycline 01/27/2023 Pollen 05/29/2013 Peanut Oil 05/29/2013 documented as of this encounter (statuses as of 06/22/2023) Medications Medication Sig Dispensed Refills Start Date [...] as of this encounter (statuses as of 06/22/2023) Active Problems Problem Noted Date GDM (gestational [...] Report levels to MFM weekly. 3. Recommend research engineer marine equipment consult. Lifestyle changes are also indicated including [...] patient s hyperthyroidism be managed during by workforce specialist. 2. Recommend PTU or Methimazole in [...] starting at 32 weeks. Family history of HI (myocardial infarct ion) 02/18/2021 Hyperthyroidism 02/18/2021 Anxiety 02/18/2021 Graves disease 02/18/2021 Other allergic rhinitis 07/30/2001 Overview: ICD-10 update of inactive term Asthma with severity to be determined Overview: ICD-10 update of inactive term ATTN DEFIC NONHYPERACT 01/24/2000 EXT ASTHMA W-O STAT ASTH Dysmenorrhea Estimated Date of Delivery Comme nts Yes 08/20/2023 Based on Ultraso und documented as of this encounter (statuses as of 06/22/2023) Resolved Problems Problem Noted Date Resolved Date [...] as of this encounter (statuses as of 06/22/2023) Immunizations Name Administration Dates Next Due Seasonal [...] Sign Reading Time Taken Comments Blood Pressure 122/72 06/22/2023 12:17 PM EDT Pulse - - Temperature - - Respiratory Rate - - Oxygen Saturation - - Inhaled Oxygen Concentration - - Weight - - Height - - Body Mass Index - - documented in this encounter Nursing Notes * Renay Hare RN - 06/22/2023 12:31 PM EDT Patient came into office for BP check due to ongoing migraine HESTER. States it is ongoing for a coupledays. Has tried tylenol, no improvement. Tried magnesium x 1 day , no improvement. Patient not getting much sleep either the last couple days. Patient urine collected and negative for ketones/protein. Patient's BP is 122/72. Denies vision changes, dizziness, RUQ pain, swelling. Patient states some improvement in HESTER since yesterday. Patient advised to try migraine combo that was advised in previous my G message once a day to see if this improves migraines. Advised also continue tylenol as needed. Patient aware to contact office with any worsening symptoms or new symptoms. Patient agreeable to plan and verbalized understanding. documented in this encounter Plan of Treatment Upcoming Encounters Date Type Specialty Care Team Description 06/29/2023 Imaging Radiology 06/29/2023 Office Visit Maternal Medicine Lior Valdes MD [address] [facility] [place] [address] 06/29/2023 Office Visit Gynecology Obstetrics Diann Spain CRNP [address] [place] [address] 07/13/2023 Office Visit Gynecology Obstetrics Eva Bush CRNP [address] [place] [address] 07/17/2023 Office Visit Gynecology Obstetrics Olivia Lawson PA-C [address] [place] [address] Nurse Arthur [employer] Return Pietro [address] [place] [address] 07/27/2023 Imaging Radiology 07/27/2023 Office Visit Maternal Medicine Wen Lorena Bender DO [address] [place] [address] 07/27/2023 Office Visit Gynecology Obstetrics McHail, KIRSTEN Mathew [address] [place] [address] 08/03/2023 Office Visit Gynecology Obstetrics Backer, KIRSTEN Royal [address] [place] [address] 08/10/2023 Office Visit Gynecology Obstetrics Backer, KIRSTEN Royal [address] [place] [address] 08/14/2023 Telemedicine Endocrinology Vannesa Puente PA-C [address] [place] [address] 08/17/2023 Office Visit Gynecology Obstetrics Backer, KIRSTEN Royal [address] [place] [address] Health Maintenance Due Date Last Done Comments [...] Procedure Name Priority Date/Time Associated Diagnosis Comments URINALYSIS, POINT OF CARE (ENTER/EDIT) Routine 06/22/2023 Headache in documented in this encounter Results * URINALYSIS, POINT OF CARE (ENTER/EDIT) (06/22/2023) Color, Urine Yellow Yellow or Light Yellow Clarity, Urine Clear Clear Glucose, Urine Negative Negative mg/dL Bilirubin, Urine Negative Negative Ketone, Urine Negative Negative mg/dL Specific Harrison, Urine 1.015 1.003 - 1.030 Blood, Urine Negative Negative pH, Urine 7.0 5.0 - 7.5 units Protein, Urine Negative Negative mg/dL Urobilinogen, Urine 0.2 0.2 - 1.0 mg/dL Nitrite, Urine Negative Negative Esterase, Urine Small Negative Urine 06/22/2023 Zeynep Kinney MD LAB POINT OF CARE TE ST ENTER/EDIT ORDERABLES documented in this encounter Visit Diagnoses Diagnosis Headache in - Primary Other specified complication of , unspecified as to episode of care documented in this encounter Care Teams Assembly Inspector Helper Relationship Specialty Start Date End Date Jethro Stevens DO [address] [place] [address] PCP - General Family Medicine 02/18/21 documented as of this encounter
--- OUTSIDE RECORDS SUMMARY | 2023-08-25 07:31 | External Medical Summary ---
Author Name Unknown Address Unknown Organization K01:LABORATORY [facility] [place] - [address] [place] [address] Laboratory Report Ordering Provider Test Date Status EFRAIN DAVALOS 06/01/2023 09:16:37 Final Observation Date Value Abnormality Reference (Units ) Status WBC, Total 06/01/2023 09:16:37 10.64 4.00-10.8 0 (K/uL) Final RBC 06/01/2023 09:16:37 4.08 3.85-5.15 (M/uL) Final Hemoglobin 06/01/2023 09:16:37 11.2 Below low normal 12 .0-15.3 (g/dL) Final Performing Location LABORATORY [facility] - [address] [place] [address]
--- OUTSIDE RECORDS SUMMARY | 2023-08-25 07:32 | External Medical Summary ---
Author Name Unknown Address Unknown Organization K01:LABORATORY [facility] [place] - [address] [place] [address] Laboratory Report Ordering Provider Test Date Status MAGALY ESCAMILLA 04/25/2023 07:39:34 Final Observation Date Value Abnormality Reference (Units ) Status TSH 04/25/2023 07:39:34 0.82 0.27-4.20 (uIU/mL) Final Performing Location LABORATORY [facility] - [address] [place] [address]
--- OUTSIDE RECORDS SUMMARY | 2023-08-25 07:32 | External Medical Summary ---
Author Name Unknown Address Unknown Organization K01:LABORATORY [facility] - [address] [place] [address] Laboratory Report Ordering Provider Test Date Status CLAY HESS 04/25/2023 07:39:34 Final Observation Date Value Abnormality Reference (Units ) Status HbA1C 04/25/2023 07:39:34 5.4 4.0-5.6 (% ) Final Performing Location LABORATORY [facility] - [address] [place] [address]
--- OUTSIDE RECORDS SUMMARY | 2023-08-25 07:32 | External Medical Summary | Summary of Care ---
Author Name Unknown Organization [facility] Address [address] [place] [address] Phone [phone] Care Team Providers Care Milled Rubber Tender Name Role Phone Mendoza Stevensvor Reji Primary Care Provider Reason for Visit * Reason Comments Ultrasound Encounter Details Date Type Department Care Team Description 05/02/2023 Office Visit [facility] Obstetrics Maternal Medicine, [place] [address], [place] [id number] Lorena Carver, [address], [place] [id number] Diet controlled gestational diabetes mellitus (GDM) in second trimester*; Multigravida of advanced maternal age in second trimester; Ultrasound for screening for growth restriction; Obesity in , antepartum; Supervision of high risk in second trimester Allergies Active Allergy Reactions Severity Noted Date Comments Doxycycline 01/27/2023 Pollen 05/29/2013 Peanut Oil 05/29/2013 documented as of this encounter (statuses as of 05/02/2023) Medications Medication Sig Dispensed Refills Start Date [...] sugars 4x/day 1 Kit 0 03/06/2023 Active TestFreaksTouch Verio In Vitro Strip (Glucose Blood)Indications:Ge stational diabetes mellitus (GDM), antepartum, gestational diabetes method of control unspecified Use to check blood sugar four times daily: Fasting in the morning, then one hour after breakfast, one hour after lunch and one hour after dinner. 200 Strip 6 03/20/2023 Active [employer] H2 Lancets 33GIndications:Gesta tional diabetes mellitus (GDM), antepartum, gestational diabetes method of control unspecified Use to check blood sugar four times daily: Fasting in the morning, then one hour after breakfast, one hour after lunch and one hour after dinner. 200 Each 6 03/20/2023 Active documented as of this encounter (statuses as of 05/02/2023) Active Problems Problem Noted Date GDM (gestational [...] missed sugars- the ones reported are WNL Last Assessment & Plan: DISCUSSION: [...] Report levels to MFM weekly. 3. Recommend breakfast and room attendant consult. Lifestyle changes are also indicated [...] patient s hyperthyroidism be managed during by senior quality assurance specialist. 2. Recommend PTU or Methimazole in first trimester and Methimazole in second and third trimester for the management of hyperthyroidism. To balance the rare risks of hepatotoxicity (associated with Propylthiouracil (PTU) ) and methimazole embryopathy (associated with aplasia cutis and esophageal or choanal atresia), the [place] [employer] and the [place] Association of Clinical Endocrinologists recommend treating hyperthyroidism with Propylthiouracil (PTU) in the first trimester and switching to methimazole in the second trimester. The [place] [employer]st[employer]ians and Gynecologists states that [...] starting at 32 weeks. Family history of OK (myocardial infarct ion) 02/18/2021 Hyperthyroidism 02/18/2021 Anxiety 02/18/2021 Graves disease 02/18/2021 Other allergic rhinitis 07/30/2001 Overview: ICD-10 update of inactive term Asthma with severity to be determined Overview: ICD-10 update of inactive term ATTN DEFIC NONHYPERACT 01/24/2000 EXT ASTHMA W-O STAT ASTH Dysmenorrhea Estimated Date of Delivery Comme nts Yes 08/20/2023 Based on Ultraso und documented as of this encounter (statuses as of 05/02/2023) Resolved Problems Problem Noted Date Resolved Date [...] as of this encounter (statuses as of 05/02/2023) Immunizations Name Administration Dates Next Due DT [...] (ADULT) 07/04/1997 TDAP (age 10 and older)(Boostrix) 10/31/2016 documented as of this encounter Social History [...] got money to buy more. Never true 01/26/2023 Within the past 12 months, t he food you bought just didn't last and you didn't have money to get more. Never true 01/26/2023 Estimated Date of Delivery Comme nts Yes 08/20/2023 Based on Ultraso und Sex Assigned at Date Recorded Female 01/26/2023 1:[address] Job Start Date Occupation Industry Not on file Not on file Not on file documented as of this encounter Progress Notes * Lorena Perezi Wen, DO - 05/02/2023 4:06 PM EDT MATERNAL MEDICINE VISIT Starr Dove presented today at 24w2d for an ultrasound and follow-up of her high risk . She was seen for the following indications: Problem List Items Addressed This Visit Endocrine/Metabolic GDM (gestational diabetes mellitus) - Primary Digestive Obesity in , antepartum Other Supervision of high risk in second trimester Starr reports vaginal discharge and pruritus in the setting of recent antibiotic use. She reported this to the team but was told a culture was negative and therefore she did not warrant treatment, however the only culture I could locate was a urine culture. Since then, she has tried OTC M onistat also without relief. Suggested she reach out to the OB team for further evaluation as physical exam and/or vaginal swab may be needed to confirm diagnosis of BV vs yeast. Also encouraged more regular reporting of sugars as hyperglycemia is also a risk factor for chronic yeast infection. Sugars submitted appear to be within the target range (top normal for postprandials). AMA (advanced maternal age) multigravida 35+ Other Visit Diagnoses Ultrasound for screening for growth restriction We reviewed today's ultrasound findings. 24w 2d to complete the anatomy survey as well as assess growth. No evidence of structural abnormalities noted today, however some structures remain suboptimal as above. Normal interval growth with EFW 757 g at 72%. Normal DICKSON. Cephalic presentation. (For full details, please refer to ultrasound report provided separately). Ms. Dove's questions were answered to her satisfaction. She was advised to contact our office or her OB provider for any additional questions regarding her . RECOMMENDATIONS: Recommend follow up ultrasound with MFM in 4 weeks for growth secondary to above. Thank you for allowing us to participate in the care of this patient. Please call with any questions. I spent a total of 22 minutes on the date of service in preparation, delivery, and documentation ofthe care provided to Starr Hernándezr excluding any time spent in the performance of separately billed services. Lorena Carver DO 05/02/2023 4:06 PM documented in this encounter Nursing Notes * GWEN Wei - 05/02/2023 3:01 PM EDT Patient states she has had a yeast infection for about 3 weeks and over the counter medications have not been working. She has been on antibiotics for a tooth abscess. She states she has mentioned this issue to her OB provider and has not been placed on any medication for this. documented in this encounter Miscellaneous Notes * Assessment & Plan Note - Lorena Sanchez DO - 05/02/2023 4:00 PM EDT Associated Problem(s): Supervision of high risk in second trimester Starr reports vaginal discharge and pruritus in the setting of recent antibiotic use. She reported this to the team but was told a culture was negative and therefore she did not warrant treatment, however the only culture I could locate was a urine culture. Since then, she has tried OTC M onistat also without relief. Suggested she reach out to the OB team for further evaluation as physical exam and/or vaginal swab may be needed to confirm diagnosis of BV vs yeast. Also encouraged more regular reporting of sugars as hyperglycemia is also a risk factor for chronic yeast infection. Sugars submitted appear to be within the target range (top normal for postprandials). documented in this encounter Plan of Treatment Upcoming Encounters Date Type Specialty Care Team Description 05/25/2023 Office Visit Gynecology Obstetrics Eva Bush CRNP [address] [place] [address] 06/02/2023 Office Visit Maternal Medicine Ismael Oglesby, DO [address] [place] [address] 06/02/2023 Imaging Radiology 06/22/2023 Telemedicine Nutrition Services Deana Dejesus, RDN [address] [place], [place] [address] 06/29/2023 Imaging Radiology 07/27/2023 Imaging Radiology 08/14/2023 Telemedicine Endocrinology Vannesa Puente, [place] [address] [place] [address] Health Maintenance Due Date Last Done Comments COVID-19 Vaccine (#1) 03/05/1986 Pneumococcal Vaccine: Pediatrics (0 to 5 Years) and At-Risk Patients (6 to 64 Years) (1 - PCV) 1991 Depression Screening, Annual for Pts 12 and Over 09/23/2021 09/23/2020 *SPIROMETRY ONCE FOR ASTHMA-ADULT 10/13/2022 Influenza Vaccine (FLU shot) (Season Ended) 2023 09/23/2020, 08/09/2016, 08/08/2013 Diabetes Screening 04/25/2026 04/25/2023, 0 04/08/2022, 06/19/2021, Additional history exists DTaP,Tdap,and Td Vaccines (7 - Td or Tdap) 10/31/2026 10/31/2016, 07/04/1997, 01/24/1991, Additional history exists Pap Smear 02/02/2028 02/01/2023 Hepatitis B Completed 02/25/1997, 08/21, 07/02/1996 Hepatitis C Screening Completed 02/01/2023 , 02/01/2023, 02/01/2023 GARDASIL-HPV IMMUNIZATION SERIES Aged Out No longer eligible based on patient's age to complete this topic MENINGOCOCCAL (MENACTRA/MENVEO) Aged Out No longer eligible based on patient's age to complete this topic documented as of this encounter Medical Devices Not on filedocumented as of this encounter Visit Diagnoses Diagnosis Diet controlled gestational diabetes mellitus (GDM) in second trimester- Primary Multigravida of advanced maternal age in second trimester Ultrasound for screening for growth restriction screening for growth retardation using ultrasonics Obesity in , antepartum Obesity complicating , childbirth, or the puerperium, antepartum condition or complication Supervision of high risk in second trimester Unspecified high-risk documented in this encounter Care Teams Milled Rubber Tender Relationship Specialty Start Date End Date Jethro Stevens DO [address] [place] [address] PCP - General Family Medicine 02/18/21 documented as of this encounter
--- OUTSIDE RECORDS SUMMARY | 2023-08-25 07:32 | External Medical Summary | Summary of Care ---
Author Name Unknown Organization [facility] Address [address] [place] [address] Phone [phone] Care Team Providers Care Skoog Operator Name Role Phone Negro Stevensr Reji Primary Care Provider Encounter Details Date Type Department Care Team Description 04/27/2023 Telephone Gynecology/Obstetrics [facility] [address] [facility] [place] [address] Mishel Sue, SAROJ [address] [facility] [place] [address] Allergies Active Allergy Reactions Severity Noted Date Comments Doxycycline 01/27/2023 Pollen 05/29/2013 Peanut Oil 05/29/2013 documented as of this encounter (statuses as of 04/27/2023) Medications Medication Sig Dispensed Refills Start Date [...] after dinner. 200 Strip 6 03/20/2023 Active [employer]Touch Delica Lancets 33GIndications:Gesta tional diabetes mellitus (GDM), antepartum, gestational diabetes method of control unspecified Use to check blood sugar four times daily: Fasting in the morning, then one hour after breakfast, one hour after lunch and one hour after dinner. 200 Each 6 03/20/2023 Active documented as of this encounter (statuses as of 04/27/2023) Active Problems Problem Noted Date GDM (gestational [...] 4 times daily 04/25/23: A1C = 5.4 Last Assessment & Plan: DISCUSSION: 1. Reviewed [...] maintain these target values. Report levels to [facility] weekly. 3. Recommend special education bus driver consult. Lifestyle changes are also indicated including [...] high risk in se cond trimester 02/01/2023 Obesity in , antepartum 023 Overview: BMI: [...] patient s hyperthyroidism be managed during by music therapy specialist. 2. Recommend PTU or Methimazole in first trimester and Methimazole in second and third trimester for the management of hyperthyroidism. To balance the rare risks of hepatotoxicity (associated with Propylthiouracil (PTU) ) and methimazole embryopathy (associated with aplasia cutis and esophageal or choanal atresia), the [place] [employer] and the [place] [employer] of Clinical Endocrinologists recommend treating hyperthyroidism with Propylthiouracil (PTU) in the first trimester and switching to methimazole in the second trimester. The [place] [employer] Obstetricians and Gynecologists states that [...] as of this encounter (statuses as of 04/27/2023) Resolved Problems Problem Noted Date Resolved Date [...] as of this encounter (statuses as of 04/27/2023) Immunizations Name Administration Dates Next Due Seasonal Influenza, Quadriva lent, No Preserve, 6 Mons & Above, IM 09/23/2020 Seasonal Influenza, Split, IIV3, With Preserve, Inj 08/08/2013 TDAP (age 10 and older)(Boostrix) 10/31/2016 documented [...] Telephone Encounter - Chantale Paulino LPN - 04/27/2023 2:09 PM EDT ----- Message from Mishel Sue CNM sent at 04/27/2023 2:03 PM EDT ----- Please let patient know her urine culture was negative for infection. If having ongoing or worsening pelvic pain, she should let us know. Thanks! Mishel Sue CNM documented in this encounter Plan of Treatment Upcoming Encounters Date Type Specialty Care Team Description 05/02/2023 Office Visit Maternal Medicine Lorena Carver, DO [address] [facility] [place] [address] 05/02/2023 Imaging Radiology 05/25/2023 Office Visit Gynecology Obstetrics Eva Bush CRNP [address] [place] [address] 06/22/2023 Telemedicine Nutrition Services Deana Dejesus, RICKY [address] [place] [address] [place] [address] 08/14/2023 Telemedicine Endocrinology Vannesa Puente PA-C [address] [facility] [place] [address] Health Maintenance Due Date Last Done Comments [...] filedocumented as of this encounter Care Teams Skoog Operator Relationship Specialty Start Date End Date Jethro Stevens DO [address] [place] [address] PCP - General Family Medicine 02/18/21 documented as of this encounter
--- OUTSIDE RECORDS SUMMARY | 2023-08-25 07:32 | External Medical Summary | Summary of Care ---
Author Name Unknown Organization [facility] Address [address] [place] [address] Phone [phone] Care Team Providers Care Manager Banquet Name Role Phone Mendoza Stevensvor Reji Primary Care Provider Reason for Visit * Reason Comments Return Visit Encounter Details Date Type Department Care Team Description 04/25/2023 Office Visit Gynecology/Obstetrics [facility] [address] [facility] [place] [address] Mishel Sue CN [address] [facility] [place] [address] Supervision of high risk in second trimester*; Multigravida of advanced maternal age in second trimester; Hyperthyroidism affecting in second trimester; Anxiety during ; Maternal asthma complicating ; Diet controlled gestational diabetes mellitus (GDM) in second trimester; Class 2 obesity Allergies Active Allergy Reactions Severity Noted Date Comments Doxycycline 01/27/2023 Pollen 05/29/2013 Peanut Oil 05/29/2013 documented as of this encounter (statuses as of 04/25/2023) Medications Medication Sig Dispensed Refills Start Date [...] after dinner. 200 Strip 6 03/20/2023 Active [employer] Delica Lancets 33GIndications:Ge stational diabetes mellitus (GDM), antepartum, gestational diabetes method of control unspecified Use to check blood sugar four times daily: Fasting in the morning, then one hour after breakfast, one hour after lunch and one hour after dinner. 200 Each 6 03/20/2023 Active Promethazine HCl 25 MG Oral Tablet (Phenergan)Indica tions:History of nausea and vomiting Take 0.5 Tablets by mouth every 8 hours as needed for Nausea. or vomiting 12 Tablet 0 01/02/2023 04/25/2023 Discontinue d(Medicatio n List Clean Up) Amoxicillin 250 MG Oral Capsule (Amoxil) Take 1 Capsule by mouth in the morning and 1 Capsule at noon and 1 Capsule before bedtime. 0 04/25/2023 Discontinue d(Medicatio n List Clean Up) Acetaminophen-Cod eine #3 300-30 MG Oral Tablet (Tylenol #3) Take 1 Tablet by mouth every 6 hours as needed for Pain, Severe. 30 Tablet 0 03/29/2023 04/25/2023 Discontinue d(Medicatio n List Clean Up) documented as of this encounter (statuses as of 04/25/2023) Active Problems Problem Noted Date GDM (gestational [...] 03/20/23: MFM ADAPT consult complete. Enrolled in [facility]. Instructions provided to report blood sugars each week for MFM review 03/28/23-- Some fasting and PP are slightly increased- will follow up next week 04/12/23-- patient has a lot of missed readings. Numbers reported look good.will encourage patient to test 4 times daily 04/20/23-- sugars look good-encouraged patient to test 4 times daily Last Assessment & Plan: DISCUSSION: 1. Reviewed [...] Report levels to MFM weekly. 3. Recommend acting professor consult. Lifestyle changes are also indicated including [...] patient s hyperthyroidism be managed during by internet marketing specialist. 2. Recommend PTU or Methimazole in first trimester and Methimazole in second and third trimester for the management of hyperthyroidism. To balance the rare risks of hepatotoxicity (associated with Propylthiouracil (PTU) ) and methimazole embryopathy (associated with aplasia cutis and esophageal or choanal atresia), the [place] [employer] and the [place] Association of Clinical Endocrinologists recommend treating hyperthyroidism with Propylthiouracil (PTU) in the first trimester and switching to methimazole in the second trimester. The [place] [employer] of Obstetricians and Gynecologists states that [...] starting at 32 weeks. Family history of [place] (myocardial infarct ion) 02/18/2021 Hyperthyroidism 02/18/2021 Anxiety 02/18/2021 Graves disease 02/18/2021 Other allergic rhinitis 07/30/2001 Overview: ICD-10 update of inactive term Asthma with severity to be determined Overview: ICD-10 update of inactive term ATTN DEFIC NONHYPERACT 01/24/2000 EXT ASTHMA W-O STAT ASTH Dysmenorrhea Estimated Date of Delivery Comme nts Yes 08/20/2023 Based on Ultraso und documented as of this encounter (statuses as of 04/25/2023) Resolved Problems Problem Noted Date Resolved Date [...] as of this encounter (statuses as of 04/25/2023) Immunizations Name Administration Dates Next Due Seasonal Influenza, Quadriva lent, No Preserve, 6 Mons & Above, IM 09/23/2020 Seasonal Influenza, Split, IIV3, With Preserve, Inj 08/08/2013 TDAP (age 10 and older)(Boostrix) 10/31/2016 documented as of this encounter Social History Tobacco Use Types Packs/Day Years Used Date Smoking Tobacco: Never Smokeless Tobacco: Never Tobacco Cessation:Counseling Given: Not Answered Alcohol Use Standard Drinks/Week Comments Yes 0 [...] Sign Reading Time Taken Comments Blood Pressure 126/84 04/25/2023 8:18 AM EDT Pulse - - Temperature - - Respiratory Rate - - Oxygen Saturation - - Inhaled Oxygen Concentration - - Weight 94.9 kg (209 lb 3.2 oz) 04/25/2023 8:18 A M EDT Height 157.5 cm (5' 2") 04/25/2023 8:18 AM EDT Body Mass Index 38.26 04/25/2023 8:18 AM EDT documented in this encounter Progress Notes * Mishel Sue CNM - 04/25/2023 8:32 AM EDT Starr Dove is a 37 year old female here for her routine OB appointment at 23w2d Her Estimated Date of Delivery: 08/20/23 REVIEW OF SYSTEMS: She affirms movement. Denies vaginal bleeding, LOF, contractions, vision changes, and RUQ pain. Patient complains of generalized abdominal soreness and weekly headaches. Also complains of vaginal burning and itching sincecompleting a recent course of PO amoxicillin about 2 weeks ago for a tooth infection. OTC monistat does not provide relief. PHYSICAL EXAM: Filed Vitals: 04/25/23 0818 BP: 126/84 Weight: 94.9 kg (209 lb 3.2 oz) Height: 1.575 m (5' 2") +FHT 140-150 bpm Fundal height: 23cm ASSESSMENT/PLAN: (O09.522) Multigravida of advanced maternal age in second trimester (O99.282, E05.90) Hyperthyroidism affecting in second trimester Plan: -Managed by endocrinology (KIRSTEN Bush) -Repeat TSH drawn this morning; results pending (O99.340, F41.9) Anxiety during Plan: -Patient denies mental health concerns toady (O99.519, J45.909) Maternal asthma complicating (O24.410) Diet controlled gestational diabetes mellitus (GDM) in second trimester Plan: -Patient is managed by ADAPT/MFM (E66.9) Class 2 obesity (O09.92) Supervision of high risk in second trimester (primary encounter diagnosis) Plan: CULTURE, URINE, QUANTITATIVE -Recommended yogurt, probiotic, cotton underwear, and general hygiene measures. Patient declines vaginosis swab today. Patient to notify provider if ongoing symptoms. -Urine culture today -Recommended increasing hydration, tylenol, and magnesium for soreness and headaches. Patient to notify provider if no relief. - reviewed and ordered CBC and syphilis screening for patient to complete between now and her next visit - reviewed recommendation for tdap vaccine at next visit -Followed by MFM -Next MFM visit on 05/02/23 - RTO in 4 weeks Mishel Sue CNM documented in this encounter Nursing Notes * Renay Hare RN - 04/25/2023 8:20 AM EDT Patient here for nolvia visit 23w2d No vaginal bleeding /leaking No blurry vision No nausea Treating for yeast infection otc, no improvement. Renay Hare RN documented in this encounter Plan of Treatment Upcoming Encounters Date Type Specialty Care Team Description 05/02/2023 Office Visit Maternal Medicine Lorena Carver, [address] [place] [address] 05/02/2023 Imaging Radiology 05/25/2023 Office Visit Gynecology Obstetrics Eva Bush CRNP [address] [place] [address] 06/22/2023 Telemedicine Nutrition Services Deana Dejesus, RDN [address] [place] [address] 08/14/2023 Telemedicine Endocrinology Vannesa Puente PA-C [address] [place] [address] Pending Results Name Type Priority Associated Diagnoses Date /Time CULTURE, URINE, QUANTITATIVE Lab Routine Supervision of high risk in second trimester 04/25/2023 9:09 AM EDT Scheduled Orders Name Type Priority Associated Diagnoses Orde r Schedule CBC WITH WBC DIFFERENTIAL AND ANEMIA REFLEX WORKUP Lab Routine Supervision of high risk in second trimester Expected: 04/25/2023 (Approximate), Expires: 04/25/2024 SYPHILIS ANTIBODY SCREEN WITH REFLEX TO RPR Lab Routine Supervision of high risk in second trimester Expected: 04/25/2023, Expires: 04/25/2024 Health Maintenance Due Date Last Done Comments COVID-19 Vaccine (#1) 03/05/1986 Pneumococcal Vaccine: Pediatrics (0 to 5 Years) and At-Risk Patients (6 to 64 Years) (1 - PCV) 1991 Depression Screening, Annual for Pts 12 and Over 09/23/2021 09/23/2020 *SPIROMETRY ONCE FOR ASTHMA-ADULT 10/13/2022 Influenza Vaccine (FLU shot) (Season Ended) 2023 09/23/2020, 08/09/2016, 08/08/2013 Diabetes Screening 04/08/2025 04/08/2022, 0 06/19/2021, 06/19/2021, Additional history exists DTaP,Tdap,and Td Vaccines [...] risk in second trimester- Primary Unspecified high-risk Multigravida of advanced maternal age in second trimester Hyperthyroidism affecting in second trimester Anxiety during Maternal asthma complicating Other current maternal conditions classifiable elsewhere, complicating , childbirth, or the puerperium, unspecified as to episode of care Diet controlled gestational diabetes mellitus (GDM) in second trimester Class 2 obesity documented in this encounter Care Teams Manager Banquet Relationship Specialty Start Date End Date Jethro Stevens DO [address] [place] [address] PCP - General Family Medicine 02/18/21 documented as of this encounter
--- OUTSIDE RECORDS SUMMARY | 2023-08-25 07:32 | External Medical Summary | Summary of Care ---
Author Name Unknown Organization [facility] Address [address] [place] [address] Phone [phone] Care Team Providers Care Senior Fund Accountant Name Role Phone Mendoza Stevensvor Reji Primary Care Provider Reason for Visit * Reason Comments Ultrasound Encounter Details Date Type Department Care Team Description 05/02/2023 Office Visit Feed Mill Manager Obstetrics Maternal Medicine, [place] [address] [place], [place] [id number] Lorena Carver, [address] [place], [place] [id number] Diet controlled gestational diabetes mellitus (GDM) in [...] sugars 4x/day 1 Kit 0 03/06/2023 Active [employer] Verio In Vitro Strip (Glucose Blood)Indications:Ge stational diabetes mellitus (GDM), antepartum, gestational diabetes method of control unspecified Use to check blood sugar four times daily: Fasting in the morning, then one hour after breakfast, one hour after lunch and one hour after dinner. 200 Strip 6 03/20/2023 Active [employer] Lancets 33GIndications:Gesta tional diabetes mellitus (GDM), antepartum, [...] Report levels to MFM weekly. 3. Recommend production service manager consult. Lifestyle changes are also indicated [...] patient s hyperthyroidism be managed during by loan documentation specialist. 2. Recommend PTU or Methimazole in [...] Bush CRNP [address] [place] [address] 06/02/2023 Office Visit Maternal Medicine Ismael Oglesby, DO [address] [place] [address] 06/02/2023 Imaging Radiology 06/22/2023 Telemedicine Nutrition Services Deana Dejesus, RDN [address] Elvia Fre[place], [place] [address] 06/29/2023 Imaging Radiology 07/27/2023 Imaging Radiology 08/14/2023 Telemedicine Endocrinology Vannesa Puente, [place] [address] [place] [address] Health Maintenance Due Date Last Done Comments [...] high-risk documented in this encounter Care Teams Senior Fund Accountant Relationship Specialty Start Date End Date Jethro Stevens DO [address] [place] [address] PCP - General Family Medicine 02/18/21 documented as of this encounter
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
--- OUTSIDE RECORDS SUMMARY | 2023-08-25 07:32 | External Medical Summary | Summary of Care ---
Author Name Unknown Organization [facility] Address [address] [facility] [place] [address] Phone [phone] Care Team Providers Care Commercial Lines Manager Name Role Phone Jethro Stevens DO Primary Care Provider Reason for Visit * Reason Onset Date Comments Advice 05/26/2023 Encounter Details Date Type Department Care Team Description 05/26/2023 Telephone Family Practice [facility] [address] [place] [address] Jethro Stevens DO [address] [place] [address] Advice Allergies Active Allergy Reactions Severity Noted Date Comments Doxycycline 01/27/2023 Pollen 05/29/2013 Peanut Oil 05/29/2013 documented as of this encounter (statuses as of 05/26/2023) Medications Medication Sig Dispensed Refills Start Date [...] sugars 4x/day 1 Kit 0 03/06/2023 Active [employer] Verio In Vitro Strip (Glucose Blood)Indications:Ge stational diabetes mellitus (GDM), antepartum, gestational diabetes method of control unspecified Use to check blood sugar four times daily: Fasting in the morning, then one hour after breakfast, one hour after lunch and one hour after dinner. 200 Strip 6 03/20/2023 Active [employer] Lancets 33GIndications:Gesta tional diabetes mellitus (GDM), antepartum, gestational diabetes method of control unspecified Use to check blood sugar four times daily: Fasting in the morning, then one hour after breakfast, one hour after lunch and one hour after dinner. 200 Each 6 03/20/2023 Active documented as of this encounter (statuses as of 05/26/2023) Active Problems Problem Noted Date GDM (gestational [...] maintain these target values. Report levels to [facility] weekly. 3. Recommend eyeglass inspector consult. Lifestyle changes are also indicated including [...] patient s hyperthyroidism be managed during by diversity specialist. 2. Recommend PTU or Methimazole in first trimester and Methimazole in second and third trimester for the management of hyperthyroidism. To balance the rare risks of hepatotoxicity (associated with Propylthiouracil (PTU) ) and methimazole embryopathy (associated with aplasia cutis and esophageal or choanal atresia), the [place] [employer] and the [place] Association of Clinical Endocrinologists recommend treating hyperthyroidism with Propylthiouracil (PTU) in the first trimester and switching to methimazole in the second trimester. The [place] [employer] of Obstetricians and Gynecologists states that [...] as of this encounter (statuses as of 05/26/2023) Resolved Problems Problem Noted Date Resolved Date [...] as of this encounter (statuses as of 05/26/2023) Immunizations Name Administration Dates Next Due Seasonal [...] encounter Miscellaneous Notes * Telephone Encounter - Buzz Sosa DO - 05/26/2023 6:46 PM EDT Spoke with patient. Advise Benadryl OTC as directed and Tylenol OTC as directed for sunburn. Continue lidocaine and aloe vera as directed * Telephone Encounter - EDE Fournier - 05/26/2023 10:48 AM EDT Pt sunburned 2 days ago; beginning to blister and she is unable to lift her arms from shoulder pain. OB-TOY MECHANIC suggested she reach out to see if there is anything that can be called in for her to help with the pain. documented in this encounter Plan of Treatment Upcoming Encounters Date Type Specialty Care Team Description 06/01/2023 Office Visit Gynecology Obstetrics BackerDiann CRNP [address] [place] [address] 06/02/2023 Office Visit Maternal Medicine Ismael Oglesby, [address] [place] [address] 06/02/2023 Imaging Radiology 06/22/2023 Telemedicine Nutrition Services Deana Dejesus, RDN [address] [place] [address] [place] [address] 06/29/2023 Imaging Radiology 06/29/2023 Office Visit Maternal Medicine Lior Valdes MD [address] [place] [address] 07/27/2023 Imaging Radiology 07/27/2023 Office Visit Maternal Medicine Lorena Carver, [address] [place] [address] 08/14/2023 Telemedicine Endocrinology Vannesa Puente PA-C [address] [place] [address] Health Maintenance Due Date Last [...] filedocumented as of this encounter Care Teams Commercial Lines Manager Relationship Specialty Start Date End Date Jethro Stevens DO [address] [place] [address] PCP - General Family Medicine 02/18/21 documented as of this encounter
--- OUTSIDE RECORDS SUMMARY | 2023-08-25 07:32 | External Medical Summary | Summary of Care ---
Author Name Unknown Organization [facility] Address [address] [facility] [place] [address] Phone [phone] Care Team Providers Care Pool Table Mechanic Name Role Phone Rodney Jethro Floresrip Primary Care Provider Reason for Visit * Reason Comments DSMT Follow-Up Encounter Details Date Type Department Care Team Description 04/20/2023 [facility] [address] [place] [address] Deana Dejesus, RDN [address] [place] [address] Diet controlled gestational diabetes mellitus (GDM) in second trimester*; Supervision of high risk in second trimester; Obesity in , antepartum; Multigravida of advanced maternal age in second trimester; Hyperthyroidism affecting in second trimester; Anxiety during ; Maternal asthma complicating Allergies Active Allergy Reactions Severity Noted Date Comments Doxycycline 01/27/2023 Pollen 05/29/2013 Peanut Oil 05/29/2013 documented as of this encounter (statuses as of 04/26/2023) Medications Medication Sig Dispensed Refills Start Date [...] Oral Tablet Take by mouth. 0 Active [employer]Touch Verio Flex System w/Device KitIndications:Ge stational diabetes [...] after dinner. 200 Strip 6 03/20/2023 Active [employer] Delica Lancets 33GIndications:Ge stational diabetes mellitus (GDM), [...] as of this encounter (statuses as of 04/26/2023) Active Problems Problem Noted Date GDM (gestational [...] Report levels to MFM weekly. 3. Recommend conveyor monitor consult. Lifestyle changes are also indicated including [...] patient s hyperthyroidism be managed during by resume specialist. 2. Recommend PTU or Methimazole in first trimester and Methimazole in second and third trimester for the management of hyperthyroidism. To balance the rare risks of hepatotoxicity (associated with Propylthiouracil (PTU) ) and methimazole embryopathy (associated with aplasia cutis and esophageal or choanal atresia), the [place] Thyroid Association and the [place] Association of Clinical Endocrinologists recommend treating hyperthyroidism with Propylthiouracil (PTU) in the first trimester and switching to methimazole in the second trimester. The [place] College of Obstetricians and Gynecologists states that [...] starting at 32 weeks. Family history of [place] (myocardial infarct ion) 02/18/2021 Hyperthyroidism 02/18/2021 Anxiety 02/18/2021 Graves disease 02/18/2021 Other allergic rhinitis 07/30/2001 Overview: ICD-10 update of inactive term Asthma with severity to be determined Overview: ICD-10 update of inactive term ATTN DEFIC NONHYPERACT 01/24/2000 EXT ASTHMA W-O STAT ASTH Dysmenorrhea Estimated Date of Delivery Comme nts Yes 08/20/2023 Based on Ultraso und documented as of this encounter (statuses as of 04/26/2023) Resolved Problems Problem Noted Date Resolved Date [...] as of this encounter (statuses as of 04/26/2023) Immunizations Name Administration Dates Next Due Seasonal [...] on file documented as of this encounter Patient Instructions * Patient Instructions* Deana Dejesus, RICKY - 04/20/2023 1:53 PM EDT Nutrition: To improve blood glucose control I will choose a higher protein breakfast 3 days a week and compare to yogurt breakfast documented in this encounter Progress Notes * Deana Dejesus RDN - 04/20/2023 2:00 PM EDT DIABETES SELF-MANAGEMENT TRAINING/FOLLOW UP NOTE Name: Starr Dove Date:04/20/2023 Patient location: HOME. I was not in a hospital or clinic location. After connecting through [employer], patient was verified with two unique identifiers. Patient (or authorized legal sales representative graphic art) was then informed that this was a Telemedicine visit and being conducted confidentially over secure lines. Methods to assure confidentiality were taken. Patient acknowledged consent and understanding of privacy and security of the Telemedicine visit. The patient agreed to participate. Last order of DIABETES MANAGEMENT EDUCATION (ADA) REFERRAL was found on 03/06/2023 from Telephone on03/06/2023 No order of CLINICAL NUTRITION AND DIABETES EDUCATION ANNUAL RENEWAL is found. No order of PEDIATRIC DIABETES MANAGEMENT EDUCATION (ADA) REFERRAL OP is found. ADA referral in place? Yes Participant scheduled for 1:1 training due to lack of classes scheduled within 2 months of appointment. What diabetes concerns and/or barriers to care would you like to discuss in your appointment: WeeksGestation: 22w 4d No main concerns. She had her tooth taken out. So she had some difficulty with good food choices due to needing softer foods. Getting in a routine now. She was on a lot of antibiotics. Currently has yeast infection. Encouraged her to call television program director regarding this. Topics from last visit to attempt to cover today: Progress towards goals Was behavior objective from last visit met at least 80% of the time: Nutrition: To improve blood glucose control I will change timing of orange juice to later in the day and will avoid regular sprite Nutrition: Yes Psychosocial Screening: Lately have you been feeling down, depressed or hopeless most of the day? No How do you manage stress: Prescribed medication Baby goats bottle fed Food Insecurity: Within the past 12 months, I worried whether our food would run out before we got money to buy more. No Within the past 12 months, the food we bought just did not last and we did not have money to buy more. No Sleep Health: Addressed at previous visit Diabetes Medications: N/A Monitoring blood glucose, interpreting and using results Results for orders placed or performed in visit on 04/08/22 HEMOGLOBIN A1C Result Value Ref Range Hemoglobin A1C 5.6 4.0 - 5.6 % Estimated Average Glucose 114 <126 mg/dL Results for orders placed or performed in visit on 06/19/21 HEMOGLOBIN A1C Result Value Ref Range Hemoglobin A1C 5.2 4.0 - 5.6 % Estimated Average Glucose 103 <126 mg/dL Results for orders placed or performed in visit on 01/21/21 HEMOGLOBIN A1C Result Value Ref Range Hemoglobin A1C 5.5 4.0 - 5.6 % Estimated Average Glucose 111 <126 mg/dL At goal/target Self-Monitoring Blood Glucose Source of Information: Participant verbally reviewed from memory Fasting 80s occ'l 70s none above 95 1 hour 128-140 was the highest. Summary: Staying in range Hypoglycemia?: No Diet: Breakfast: Yogurt -yoplait regular strawberries and vanilla, grapes occ'l Snacks: Granola bar if hungry Lunch: Hush puppies home made in air fryer and chicken nuggets, sometimes macaroni and cheese (small portion) Snacks: none Dinner: Grilled, ribs, chicken, steaks, burgers; corn, potatoes, peas, green beans Snacks: Ice cream Drinks: No sprite, coke zero, no juice, water Taking Last visit: Diet: Describes typical diet history/24-hour recall Breakfast: 2 [place] (white) with butter , orange juice 4-6oz, water Snacks: none Lunch: Chicken, mashed potatoes and corn, regular sprite Snacks: none Dinner: Grilled cheese and tomato soup, green beans, water and sprite Snacks: Grapes and blueberries Drinks: [place] juice, sprite, water - trying to cut out caffeine Does not like milk, eats cheese and yogurt Weight management review: Wt Readings from Last 6 Encounters: 03/28/23 94.3 kg (208 lb) 02/27/23 93.9 kg (207 lb) 02/01/23 92.3 kg (203 lb 6.4 oz) 07/08/22 92.6 kg (204 lb 1.9 oz) 06/15/22 93 kg (205 lb) 06/10/22 92.7 kg (204 lb 6 oz) Prepregnancy weight: 180 lb Prepregnancy BMI: obese Recommended weight gain by term : 11-20 lb Total weight gain in : 28 lb at 22 weeks 4 days gestation which is above goal. Goal is 0.5 lb gain per week until delivery. Physical Activity: Walks the dogs, baby goats and calves, 2 kids (9 and 6 yo), going to start swimming ADA STANDARDS OF CARE/BUNDLE MEASURES Diabetes Bundle / Standards of Care: Gestational Diabetes Participant Therapy Management Plan: Hypertension: BP Readings from Last 3 Encounters: 03/28/23 120/76 02/27/23 122/78 02/01/23 124/78 Gestational Diabetes Participant, being monitored by MEDIA DEVELOPER. Dyslipidemia: No results found for: LDL No components found for: [id number] Gestational Diabetes Mellitus Participant Kidney function review: No results found for: ESTIMATED GLOMERULAR FILTRATION RATE - [facility] No results found for: ALBUMIN / CREATININE RATIO No results found for: PROTEIN/ CREATININE RATIO Gestational Diabetes Mellitus Participant DSMT/Diabetes MNT Diagnosis: Food and nutrition related knowledge deficit related to new diagnosis of GDM as evidenced by interview DSMT Follow-up Assessment of Content Areas: Choose the answer that represents the participant's competency in ONLY topics assessed from previous visit and addressed today. Areas taught today must correlate with intervention. If content area not assessed and/or intervened today, it will be deferred to future session. Diabetes disease process and treatment process: Needs review (2) Incorporating nutrition management into lifestyle: Needs review (2) Incorporating physical activity into lifestyle: Needs review (2) Monitoring blood glucose, interpreting and using results: Needs review (2) DSMT/ Diabetes MNT intervention: Pathophysiology: Defined disease process. Educated on and reviewed ways to help decrease insulin resistance for better blood glucose control. Nutrition: Discussed using extra strength tums for heart burn and calcium; discussed breakfast options that are lower in CHO Physical Activity: Reframed physical activity as natural "medication" that can have long lasting blood glucose lowering effects after activity depending on level of intensity. Monitoring: Reviewed and discussed participant's SMBG log and recommendation to change: no change blood glucose and targets: Educated on blood glucose monitoring and recommended testing times of fasting and 1-OR 2-hour post meals with targets of less than 95 fasting, 1-hour post meal of less than 140 OR 2- hour post meal of less than 120. Encouraged logging blood glucoses and reported readings 1 time weekly to care team. Participant Selected Behavioral Objective: Nutrition: To improve blood glucose control I will choose a higher protein breakfast 3 days a week and compare to yogurt breakfast Recommended Medication Changes: No changes. Education materials given to participant/caregiver and reviewed during today's visit: None given today Diabetes Self-Management Support:: Healthy Recipes Possible Future Topics: Content areas that were not assessed in prior visits: All content areas have been assessed. Time Spent With Patient: Time in: 1:37 PM Time out: 1:55 PM Billing: MNT: 15 Minutes (8-22) Plan for Return: Visit date not found 6 week video visit Participant provided with contact information for Diabetes Care and Management Expert. All [facility] providers within the system are able to see [place] Diabetes Association education and outcomes within the participant's electronic medical record. Deana Dejesus RDN, NUTRITION SERVICES [address] LEVIN Diabetes Care and Management Expert documented in this encounter Plan of Treatment Upcoming Encounters Date Type Specialty Care Team Description 05/02/2023 Office Visit Maternal Medicine Lorena Carver, DO [address] [place] [phone] 05/02/2023 Imaging Radiology 05/25/2023 Office Visit Gynecology Obstetrics Eva Bush CRNP [address] [place] [address] 06/22/2023 Telemedicine Nutrition Services [place] Deana Bullock, RDN [address] [place] [address] 08/14/2023 Telemedicine Endocrinology Vannesa Puente PA-C [address] [place] [address] Health Maintenance Due Date Last [...] diabetes mellitus (GDM) in second trimester- Primary Supervision of high risk in second trimester Unspecified high-risk Obesity in , antepartum Obesity complicating , childbirth, or the puerperium, antepartum condition or complication Multigravida of advanced maternal age in second trimester Hyperthyroidism affecting in second trimester Anxiety during Maternal asthma complicating Other current maternal conditions classifiable elsewhere, complicating , childbirth, or the puerperium, unspecified as to episode of care documented in this encounter Care Teams Pool Table Mechanic Relationship Specialty Start Date End Date Jethro Stevens DO [address] [place] [address] PCP - General Family Medicine 02/18/21 documented as of this encounter
--- OUTSIDE RECORDS SUMMARY | 2023-08-25 07:32 | External Medical Summary | Summary of Care ---
Author Name Unknown Organization [facility] Address [address] [place] [address] Phone [phone] Care Team Providers Care Manager Helpdesk Name Role Phone Mendoza Stevensvor Reji Primary Care Provider Reason for Visit * Reason Comments Return Visit Encounter Details Date Type Department Care Team Description 04/25/2023 Office Visit Gynecology/Obstetrics [facility] [address] [facility] [place] [address] Mishel Sue CN [address] [facility] [address] Supervision of high risk [...] after dinner. 200 Strip 6 03/20/[address] Delica Lancets 33GIndications:Ge stational diabetes mellitus (GDM), [...] 03/20/23: MFM ADAPT consult complete. Enrolled in [facility]. Instructions provided to report blood sugars each [...] Report levels to MFM weekly. 3. Recommend development geologist consult. Lifestyle changes are also indicated including [...] patient s hyperthyroidism be managed during by employee communications specialist. 2. Recommend PTU or Methimazole in first trimester and Methimazole in second and third trimester for the management of hyperthyroidism. To balance the rare risks of hepatotoxicity (associated with Propylthiouracil (PTU) ) and methimazole embryopathy (associated with aplasia cutis and esophageal or choanal atresia), the [place] Thyroid Association and the [place] Association of Clinical Endocrinologists recommend treating hyperthyroidism with Propylthiouracil (PTU) in the first trimester and switching to methimazole in the second trimester. The [place] College of Obstetricians and Gynecologists states that [...] Visit Maternal Medicine Lorena Carver, [address] [place] [address] 05/02/2023 Imaging Radiology 05/25/2023 Office Visit Gynecology Obstetrics Eva Bush CRNP [address] [place] [address] 06/22/2023 Telemedicine Nutrition Services Deana Dejesus, RDN [address] [place] [address] 08/14/2023 Telemedicine Endocrinology Vannesa Puente PA-C [address] [place] [address] Scheduled Orders Name Type Priority Associated Diagnoses Orde r Schedule CULTURE, URINE, QUANTITATIVE Lab Routine Supervision of high risk in second trimester Ordered: 04/25/2023 CBC WITH WBC DIFFERENTIAL AND ANEMIA REFLEX [...] documented in this encounter Care Teams Manager Helpdesk Relationship Specialty Start Date End Date Jethro Stevens DO [address] [place] [address] PCP - General Family Medicine 02/18/21 documented as of this encounter
--- OUTSIDE RECORDS SUMMARY | 2023-08-25 07:32 | External Medical Summary | Summary of Care ---
Author Name Unknown Organization [facility] Address [address] [facility] [address] Phone [phone] Care Team Providers Care Custom Clothier Name Role Phone RodneyJethrorip Primary Care Provider Reason for Visit * Reason Comments Outpatient Testing Encounter Details Date Type Department Care Team Description 04/25/2023 [facility] [address] [facility] [address] [facility] [address] Graves disease; Gestational diabetes mellitus (GDM), antepartum, gestational diabetes method of control unspecified Allergies [...] the morning. 30 Capsule 11 07/26/2022 Active Promethazine HCl 25 MG Oral Tablet (Phenergan)Indicatio ns:History of nausea and vomiting Take 0.5 Tablets by mouth every 8 hours as needed for Nausea. or vomiting 12 Tablet 0 01/02/2023 Active 28-0.8 MG Oral Tablet Take by [...] after dinner. 200 Strip 6 03/20/2023 Active Saavn[employer] Delica Lancets 33GIndications:Gesta tional diabetes mellitus (GDM), antepartum, gestational diabetes method of control unspecified Use to check blood sugar four times daily: Fasting in the morning, then one hour after breakfast, one hour after lunch and one hour after dinner. 200 Each 6 03/20/2023 Active Amoxicillin 250 MG Oral Capsule (Amoxil) Take 1 Capsule by mouth in the morning and 1 Capsule at noon and 1 Capsule before bedtime. 0 Active Acetaminophen-Codein e #3 300-30 MG Oral Tablet (Tylenol #3) Take 1 Tablet by mouth every 6 hours as needed for Pain, Severe. 30 Tablet 0 03/29/2023 Active documented as of this encounter (statuses [...] Report levels to MFM weekly. 3. Recommend payroll bookkeeper consult. Lifestyle changes are also indicated including [...] patient s hyperthyroidism be managed during by environmental resource specialist. 2. Recommend PTU or Methimazole in first trimester and Methimazole in second and third trimester for the management of hyperthyroidism. To balance the rare risks of hepatotoxicity (associated with Propylthiouracil (PTU) ) and methimazole embryopathy (associated with aplasia cutis and esophageal or choanal atresia), the [place] Thyroid Association and the [place] Association of Clinical Endocrinologists recommend treating hyperthyroidism with Propylthiouracil (PTU) in the first trimester and switching to methimazole in the second trimester. The [place] College of Obstetricians and Gynecologists states that [...] Encounters Date Type Specialty Care Team Description 04/25/2023 Office Visit Gynecology Obstetrics Mishel Sue, [place] [facility] [address] Arrived 05/02/2023 Office Visit Maternal Medicine Lorena Carver, DO [address] [place] [address] 05/02/2023 Imaging Radiology 06/22/2023 Telemedicine Nutrition Services Deana Dejesus, RDN [address] [place] [address] 08/14/2023 Telemedicine Endocrinology Vannesa Puente PA-C [address] [facility] [address] Pending Results Name Type Priority Associated Diagnoses Date /Time TSH WITH FREE T4 IF INDICATED Lab Routine Graves disease 04/25/2023 7:39 AM EDT HEMOGLOBIN A1C Lab Routine Gestational diabetes mellitus (GDM), antepartum, gestational diabetes method of control unspecified 04/25/2023 7:39 AM EDT Health Maintenance Due Date Last [...] as of this encounter Visit Diagnoses Diagnosis Graves disease Toxic diffuse goiter without mention of thyrotoxic crisis or storm Gestational diabetes mellitus (GDM), antepartum, gestational diabetes method of control unspecified documented in this encounter Care Teams Custom Clothier Relationship Specialty Start Date End Date Jethro Stevens, [address] [place] [address] PCP - General Family Medicine 02/18/21 documented as of this encounter
--- OUTSIDE RECORDS SUMMARY | 2023-08-25 07:32 | External Medical Summary | Summary of Care ---
Author Name Unknown Organization [facility] Address [address] [facility] [place] [address] Phone [phone] Care Team Providers Care Resource Director Name Role Phone Mendoza Stevensvor Reji Primary Care Provider Encounter Details Date Type Department Care Team Description 03/29/2023 Telephone Gynecology/Obstetrics [facility] [address] [place] [address] Diann Spain CRNP [address] [place] [address] Allergies Active Allergy Reactions Severity Noted Date Comments Doxycycline 01/27/2023 Pollen 05/29/2013 Peanut Oil 05/29/2013 documented as of this encounter (statuses as of 03/29/2023) Medications Medication Sig Dispensed Refills Start Date [...] sugars 4x/day 1 Kit 0 03/06/2023 Active [employer] Verio In Vitro Strip (Glucose Blood)Indications:Ge stational diabetes mellitus (GDM), antepartum, gestational diabetes method of control unspecified Use to check blood sugar four times daily: Fasting in the morning, then one hour after breakfast, one hour after lunch and one hour after dinner. 200 Strip 6 03/20/2023 Active [employer] Delica Lancets 33GIndications:Gesta tional diabetes mellitus (GDM), [...] as of this encounter (statuses as of 03/29/2023) Active Problems Problem Noted Date GDM (gestational [...] sugars each week for MFM review 03/28/23-- David fasting and PP are slightly increased- will follow up next week Last Assessment & Plan: DISCUSSION: 1. Reviewed [...] Report levels to MFM weekly. 3. Recommend road machine operator consult. Lifestyle changes are also indicated including [...] patient s hyperthyroidism be managed during by meat specialist. 2. Recommend PTU or Methimazole in first trimester and Methimazole in second and third trimester for the management of hyperthyroidism. To balance the rare risks of hepatotoxicity (associated with Propylthiouracil (PTU) ) and methimazole embryopathy (associated with aplasia cutis and esophageal or choanal atresia), the [place] Thyroid Association and the [place] Association of Clinical Endocrinologists recommend treating hyperthyroidism with Propylthiouracil (PTU) in the first trimester and switching to methimazole in the second trimester. The [place] College of Obstetricians and Gynecologists states that [...] as of this encounter (statuses as of 03/29/2023) Resolved Problems Problem Noted Date Resolved Date [...] as of this encounter (statuses as of 03/29/2023) Immunizations Name Administration Dates Next Due Seasonal [...] Telephone Encounter - Renay Hare RN - 03/29/2023 2:36 PM EDT Patient calling in requesting we send the oral surgeon our dental letter. Asking it to be sent to [place] [facility] . Printed and faxed letter. documented in this encounter Plan of Treatment Upcoming Encounters Date Type Specialty Care Team Description 04/25/2023 Office Visit Gynecology Obstetrics Mishel Sue CNM [address] [facility] [place] [address] 05/02/2023 Office Visit Maternal Medicine Lorena Carver, DO [address] [facility] [place] [address] 05/02/2023 Imaging Radiology 08/14/2023 Telemedicine Endocrinology Vannesa Puente PA-C [address] [facility] [place] [address] Health Maintenance Due Date Last Done Comments [...] 08/21, 07/02/1996 Hepatitis C Screening Completed 02/01/2023 GARDASIL-HPV IMMUNIZATION SERIES Aged Out No longer eligible based on patient's age to complete this topic MENINGOCOCCAL (MENACTRA/MENVEO) Aged Out No longer eligible based on patient's age to complete this topic documented as of this encounter Medical Devices Not on filedocumented as of this encounter Care Teams Resource Director Relationship Specialty Start Date End Date Jethro Stevens DO [address] [place] [address] PCP - General Family Medicine 02/18/21 documented as of this encounter
--- OUTSIDE RECORDS SUMMARY | 2023-08-25 07:32 | External Medical Summary | Summary of Care ---
Author Name Unknown Organization [facility] Address [address] [facility] [place] [address] Phone [phone] Care Team Providers Care Control Manager Name Role Phone Rodney Jethro Floresrip Primary Care Provider Reason for Visit * Reason Comments DSMT Follow-Up Encounter Details Date Type Department Care Team Description 04/20/2023 [facility]medicine [facility] [address] [place] [address] Deana Dejesus, RDN [address] [place] [address] Diet controlled gestational diabetes mellitus (GDM) in second trimester*; Supervision of high risk in second trimester; Obesity in , antepartum; Multigravida of advanced maternal age in second trimester; Hyperthyroidism affecting in second trimester; Anxiety during ; Maternal asthma complicating Allergies Active Allergy Reactions Severity Noted Date Comments Doxycycline 01/27/2023 Pollen 05/29/2013 Peanut Oil 05/29/2013 documented as of this encounter (statuses as of 04/20/2023) Medications Medication Sig Dispensed Refills Start Date [...] after dinner. 200 Strip 6 03/20/2023 Active SWK TechnologiesTouch Delica Lancets 33GIndications:Gesta tional diabetes mellitus (GDM), [...] as of this encounter (statuses as of 04/20/2023) Active Problems Problem Noted Date GDM (gestational [...] Report levels to MFM weekly. 3. Recommend auto finance sales rep consult. Lifestyle changes are also indicated including [...] patient s hyperthyroidism be managed during by bibliographic services specialist. 2. Recommend PTU or Methimazole in first trimester and Methimazole in second and third trimester for the management of hyperthyroidism. To balance the rare risks of hepatotoxicity (associated with Propylthiouracil (PTU) ) and methimazole embryopathy (associated with aplasia cutis and esophageal or choanal atresia), the [place] Thyroid Association and the [place] Association of Clinical Endocrinologists recommend treating hyperthyroidism with Propylthiouracil (PTU) in the first trimester and switching to methimazole in the second trimester. The [place] College of Obstetricians and Gynecologists states that [...] as of this encounter (statuses as of 04/20/2023) Resolved Problems Problem Noted Date Resolved Date [...] as of this encounter (statuses as of 04/20/2023) Immunizations Name Administration Dates Next Due Seasonal [...] encounter Patient Instructions * Patient Instructions* Deana Dejesus RDN - 04/20/2023 1:53 PM EDT Nutrition: To [...] hospital or clinic location. After connecting through [employer], patient was verified with two unique identifiers. 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 Encouraged her to call electrical tech regarding this. Topics from last visit to [...] Describes typical diet history/24-hour recall Breakfast: 2 [place] (white) with butter , orange juice 4-6oz, water Snacks: none Lunch: Chicken, mashed potatoes and corn, regular sprite Snacks: none Dinner: Grilled cheese and tomato soup, green beans, water and sprite Snacks: Grapes and blueberries Drinks: [place] juice, sprite, water - trying to cut [...] 124/78 Gestational Diabetes Participant, being monitored by [employer]. Dyslipidemia: No results found for: LDL No components found for: [id number] Gestational Diabetes Mellitus Participant Kidney function review: [...] with contact information for Diabetes Care and Beam Department Supervisor. All isinger providers within the system are able to see [place] Diabetes Association education and outcomes within the participant's electronic medical record. Deana Dejesus RDN, NUTRITION [facility] [place] Diabetes Care and Beam Department Supervisor documented in this encounter Plan of Treatment Upcoming Encounters Date Type Specialty Care Team Description 04/25/2023 Office Visit Gynecology Obstetrics [facility]M [address] [facility] [id number] 05/02/2023 Office Visit Maternal Medicine Lorena Carver, DO [address] [facility] [place] [address] 05/02/2023 Imaging Radiology 08/14/2023 Telemedicine Endocrinology Vannesa Puente PA-C [address] [place] [address] Health Maintenance Due Date Last Done Comments [...] care documented in this encounter Care Teams Control Manager Relationship Specialty Start Date End Date Jethro Stevens, [address] [place] [address] PCP - General Family Medicine 02/18/21 documented as of this encounter
--- OUTSIDE RECORDS SUMMARY | 2023-08-25 07:32 | External Medical Summary | Summary of Care ---
Author Name Unknown Organization [facility] Address [address] [facility] [place] [address] Phone [phone] Care Team Providers Care Cat Cracker Operator Name Role Phone Rodney Jethro Floresrip Primary Care Provider Reason for Visit * Reason Comments DSMT Follow-Up Encounter Details Date Type Department Care Team Description 04/20/2023 Telemedicine [facility] [address] [place] [address] Deana Dejesus, RDN [address] [place] [address] Diet controlled gestational diabetes mellitus (GDM) in [...] after dinner. 200 Strip 6 03/20/2023 Active [place] MicromachinesTouch Delica Lancets 33GIndications:Gesta tional diabetes mellitus (GDM), [...] Report levels to MFM weekly. 3. Recommend biomedical specialist consult. Lifestyle changes are also indicated [...] patient s hyperthyroidism be managed during by client success specialist. 2. Recommend PTU or Methimazole in first trimester and Methimazole in second and third trimester for the management of hyperthyroidism. To balance the rare risks of hepatotoxicity (associated with Propylthiouracil (PTU) ) and methimazole embryopathy (associated with aplasia cutis and esophageal or choanal atresia), the [place] Thyroid Association and the [place] Association of Clinical Endocrinologists recommend treating hyperthyroidism with Propylthiouracil (PTU) in the first trimester and switching to methimazole in the second trimester. The [place] College of Obstetricians and Gynecologists states that [...] hospital or clinic location. After connecting through [employer], patient was verified with two unique identifiers. 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 Encouraged her to call leader writer regarding this. Topics from last visit to [...] Describes typical diet history/24-hour recall Breakfast: 2 [place] (white) with butter , orange juice 4-6oz, water Snacks: none Lunch: Chicken, mashed potatoes and corn, regular sprite Snacks: none Dinner: Grilled cheese and tomato soup, green beans, water and sprite Snacks: Grapes and blueberries Drinks: [place] juice, sprite, water - trying to cut [...] 124/78 Gestational Diabetes Participant, being monitored by CONVENTIONS ASSISTANT. Dyslipidemia: No results found for: LDL No components found for: [id number] Gestational Diabetes Mellitus Participant Kidney function review: [...] with contact information for Diabetes Care and Arson And Bomb Investigator. All isinger providers within the system are able to see [place] Diabetes Association education and outcomes within the participant's electronic medical record. Deana Dejesus RDN, NUTRITION SERVICES [place] Diabetes Care and Arson And Bomb Investigator documented in this encounter Plan of Treatment Upcoming Encounters Date Type Specialty Care Team Description 04/25/2023 Office Visit Gynecology Obstetrics [facility]M [address] [facility] [id number] 05/02/2023 Office Visit Maternal Medicine Lorena Carver, DO [address] [facility] [place] [address] 05/02/2023 Imaging Radiology 08/14/2023 Telemedicine Endocrinology Vannesa Puente PA-C [address] [place] [address] Health Maintenance Due Date Last Done Comments [...] care documented in this encounter Care Teams Cat Cracker Operator Relationship Specialty Start Date End Date Jethro Stevens, [address] [place] [address] PCP - General Family Medicine 02/18/21 documented as of this encounter
--- OUTSIDE RECORDS SUMMARY | 2023-08-25 07:32 | External Medical Summary ---
Author Name Unknown Address Unknown Organization K01:[facility] [place] [address] [place] [address] Laboratory Report Ordering Provider Test Date Status EFRAIN DAVALOS 04/25/2023 09:09:49 Final Observation Date Value Abnormality Reference (Units) Status Bacteria identified in Unspecified specimen by Culture 04/25/2023 09:09:49 No significant growth Final Performing Location [facility] - [address] [place] [address]
--- OUTSIDE RECORDS SUMMARY | 2023-08-25 07:33 | External Medical Summary | Summary of Care ---
Author Name Unknown Organization [facility] Address [address] [place] [address] Phone [phone] Care Team Providers Care Stores Laborer Name Role Phone StevensJethro DO Primary Care Provider Reason for Visit * Reason Comments Ultrasound * Evaluate & Treat - Unlimited Visits (Within 10 days (routine)) - Pending Review Specialty Diagnoses / Procedures Referred By Sharlene rivera Referred To Contact Obstetrics/Gynecology / Maternal Medicine Diagnoses Supervision of high-risk , unspecified trimester Obesity in , antepartum Maternal asthma complicating Hyperthyroidism affecting in first trimester Anxiety during Multigravida of advanced maternal age in first trimester History of gestational diabetes in prior , currently Diann Spain CRNP [address] [place] [address] Sleeper Cutter Ob Maternal Med [facility] [address] [place] [address] Referral ID Status Reason Start Date Expiration Date Visits Requested Visits Authorized [id number] Pending Review Specialty Services Required 02/01/[phone] Encounter Details Date Type Department Care Team Description 03/27/2023 Office Visit Sleeper Cutter Obstetrics Maternal Medicine, [place] [address], [place] [id number] Ismael Oglesby DO [address], [place] [id number] Multigravida of advanced maternal age in second trimester*; Hyperthyroidism affecting in second trimester; Obesity in , antepartum; Diet controlled gestational diabetes mellitus (GDM) in second trimester; Maternal asthma complicating ; Anxiety during ; History of gestational diabetes in prior , currently ; Other specified related conditions, unspecified trimester Allergies Active Allergy Reactions Severity Noted Date Comments Doxycycline 01/27/2023 Pollen 05/29/2013 Peanut Oil 05/29/2013 documented as of this encounter (statuses as of 03/27/2023) Medications Medication Sig Dispensed Refills Start Date [...] Oral Tablet Take by mouth. 0 Active [employer] Flex System w/Device KitIndications:Gesta tional diabetes mellitus (GDM), antepartum, gestational diabetes method of control unspecified Use as directed. Check blood sugars 4x/day 1 Kit 0 03/06/2023 Active [employer] Verio In Vitro Strip (Glucose Blood)Indications:Ge stational diabetes mellitus (GDM), antepartum, gestational diabetes method of control unspecified Use to check blood sugar four times daily: Fasting in the morning, then one hour after breakfast, one hour after lunch and one hour after dinner. 200 Strip 6 03/20/2023 Active [employer] Delica Lancets 33GIndications:Gesta tional diabetes mellitus (GDM), [...] #3) Take 1 Tablet by mouth every 4 hours as needed. 0 Active documented as of this encounter (statuses as of 03/27/2023) Active Problems Problem Noted Date GDM (gestational [...] blood sugars each week for MFM review Last Assessment & Plan: DISCUSSION: 1. Reviewed [...] maintain these target values. Report levels to [facility] weekly. 3. Recommend basic combatant swimmer consult. Lifestyle changes are also indicated including [...] Results Component Value Date/Time TSH - [facility] 0.41 02/01/2023 10:01 AM TSH - [facility] 2.07 12/01/2022 06:55 AM TSH - [facility] 2.12 09/16/2022 07:33 AM TSH - [facility] 0.01 (A) [...] patient s hyperthyroidism be managed during by international trade specialist. 2. Recommend PTU or Methimazole in first trimester and Methimazole in second and third trimester for the management of hyperthyroidism. To balance the rare risks of hepatotoxicity (associated with Propylthiouracil (PTU) ) and methimazole embryopathy (associated with aplasia cutis and esophageal or choanal atresia), the [place] Thyroid Association and the [place] Association of Clinical Endocrinologists recommend treating hyperthyroidism with Propylthiouracil (PTU) in the first trimester and switching to methimazole in the second trimester. The [place] College of Obstetricians and Gynecologists states that [...] as of this encounter (statuses as of 03/27/2023) Resolved Problems Problem Noted Date Resolved Date [...] as of this encounter (statuses as of 03/27/2023) Immunizations Name Administration Dates Next Due DT [...] this encounter Progress Notes * Ismael Oglesby, DO - 03/27/2023 10:46 AM EDT MATERNAL MEDICINE VISIT Starr Dove is at 19w1d who presents to [facility] for an ultrasound and follow-up of her high risk . PHYSICAL EXAM: General: pleasant, alert and oriented, no acute distress She is being seen today by Maternal- Medicine for the following reasons: Problem List Items Addressed This Visit Obesity in , antepartum AMA (advanced maternal age) multigravida 35+ - Primary She presents for a anatomy survey. She [...] identify all anomalies, but it is reassuring thatno anomalies were seen today. Hyperthyroidism affecting Anxiety during Maternal asthma complicating GDM (gestational diabetes mellitus) Other Visit Diagnoses History of gestational diabetes in prior , currently We reviewed today's ultrasound findings. (For full report, please refer to ultrasound report provided separately). Ms. Dove's questions were answered to her satisfaction. RECOMMENDATIONS: Recommend follow up ultrasound with MFM in 3-4 weeks for growth and completion of anatomy secondaryto the above. Thank you for allowing us to participate in the care of this patient. Please call with any questions. Ismael Oglesby DO 03/27/2023 10:46 AM documented in this encounter Miscellaneous Notes * Assessment & Plan Note - Ismael Oglesby DO - 03/27/2023 10:33 AM EDT Associated Problem(s): AMA (advanced maternal age) multigravida 35+ She presents for a anatomy survey. She [...] identify all anomalies, but it is reassuring thatno anomalies were seen today. documented in this encounter Plan of Treatment Upcoming Encounters Date Type Specialty Care Team Description 03/28/2023 Office Visit Gynecology Obstetrics BackerDiann CRNP [address] [place] [address] 04/27/2023 Office Visit Maternal Medicine Ismael Oglesby DO [address] [place] [address] 04/27/2023 Imaging Radiology 08/14/2023 Telemedicine Endocrinology Vannesa Puente PA-C [address] [place] [address] Scheduled Orders Name Type Priority Associated Diagnoses Orde r Schedule MFM PREG FOLLOW UP EACH FETUS Medical Imaging Routine Obesity in , antepartum Maternal asthma complicating Hyperthyroidism affecting in second trimester Anxiety during Multigravida of advanced maternal age in second trimester History of gestational diabetes in prior , currently Diet controlled gestational diabetes mellitus (GDM) in second trimester Other specified related conditions, unspecified trimester 9 Occurrences starting 03/27/2023 until 09/27/2023 Health Maintenance Due Date Last Done Comments [...] as of this encounter Visit Diagnoses Diagnosis Multigravida of advanced maternal age in second trimester- Primary Hyperthyroidism affecting in second trimester Obesity in , antepartum Obesity complicating , childbirth, or the puerperium, antepartum condition or complication Diet controlled gestational diabetes mellitus (GDM) in second trimester Maternal asthma complicating Other current maternal conditions classifiable elsewhere, complicating , childbirth, or the puerperium, unspecified as to episode of care Anxiety during History of gestational diabetes in prior , currently with other poor obstetric history Other specified related conditions, unspecified trimester documented in this encounter Care Teams Stores Laborer Relationship Specialty Start Date End Date Jethro Stevens DO [address] [place] [address] PCP - General Family Medicine 02/18/21 documented as of this encounter
--- OUTSIDE RECORDS SUMMARY | 2023-08-25 07:33 | External Medical Summary | Summary of Care ---
Author Name Unknown Organization [facility] Address [address] [place] [address] Phone [phone] Care Team Providers Care Chemist Proteins Name Role Phone StevensJethro DO Primary Care [...] currently Diann Spain CRNP [address] [place] [address] Senior Hr Generalist Ob Maternal Med [facility] [address] [place] [address] Referral ID Status Reason Start Date Expiration Date Visits Requested Visits Authorized [id number] Pending Review Specialty Services Required 02/01/[phone] Encounter Details Date Type Department Care Team Description 03/27/2023 Office Visit Senior Hr Generalist Obstetrics Maternal Medicine, [place] [address] [place], [place] [phone] Ismael Oglesby DO [address] [place], [place] [phone] Multigravida of advanced maternal age in second [...] Oral Tablet Take by mouth. 0 Active [facility] Flex System w/Device KitIndications:Gesta tional diabetes mellitus (GDM), antepartum, gestational diabetes method of control unspecified Use as directed. Check blood sugars 4x/day 1 Kit 0 03/06/2023 Active [employer] Verio In Vitro Strip (Glucose Blood)Indications:Ge stational diabetes mellitus (GDM), antepartum, gestational diabetes method of control unspecified Use to check blood sugar four times daily: Fasting in the morning, then one hour after breakfast, one hour after lunch and one hour after dinner. 200 Strip 6 03/20/2023 Active [employer] Delica Lancets 33GIndications:Gesta tional diabetes mellitus (GDM), [...] maintain these target values. Report levels to [facility] weekly. 3. Recommend technical support representative consult. Lifestyle changes are also indicated including [...] patient s hyperthyroidism be managed during by hvac specialist. 2. Recommend PTU or Methimazole in [...] Dove is at 19w1d who presents to [facility] for an ultrasound and follow-up of [...] BackerDiann CRNP [address] [place] [address] 04/27/2023 Office Visit Maternal Medicine Ismael Oglesby DO [address] [place] [address] 04/27/2023 Imaging Radiology 08/14/2023 Telemedicine Endocrinology Vannesa Puente PA-C [address] [place] [address] Scheduled Orders Name Type Priority Associated Diagnoses [...] trimester documented in this encounter Care Teams Chemist Proteins Relationship Specialty Start Date End Date Jethro Stevens DO [address] [place] [address] PCP - General Family Medicine 02/18/21 documented as of this encounter
--- OUTSIDE RECORDS SUMMARY | 2023-08-25 07:33 | External Medical Summary | Summary of Care ---
Author Name Unknown Organization [facility] Address [address] [facility] [place] [address] Phone [phone] Care Team Providers Care Mechanical Engineering Technologist Name Role Phone Mendoza Stevenshazel Floresrip Primary Care Provider Reason for Visit * Reason Comments Return Visit Encounter Details Date Type Department Care Team Description 03/28/2023 Office Visit Gynecology/Obstetrics [facility] [address] [place] [address] Diann Spain CRNP [address] [place] [address] Supervision of high risk in second trimester*; Obesity in , antepartum; Multigravida of advanced maternal age in second trimester; Hyperthyroidism affecting in second trimester; Anxiety during ; Maternal asthma complicating ; Diet controlled gestational diabetes mellitus (GDM) in second trimester Allergies Active Allergy Reactions Severity Noted Date Comments Doxycycline 01/27/2023 Pollen 05/29/2013 Peanut Oil 05/29/2013 documented as of this encounter (statuses as of 03/28/2023) Medications Medication Sig Dispensed Refills Start Date [...] Oral Tablet Take by mouth. 0 Active [employer] Verio Flex System w/Device KitIndications:Gesta tional diabetes [...] after dinner. 200 Strip 6 03/20/2023 Active [employer] Delica Lancets 33GIndications:Gesta tional diabetes mellitus (GDM), [...] Acetaminophen-Codein e #3 300-30 MG Oral Tablet Take 1 Tablet by mouth every 4 hours as needed. 0 Active documented as of this encounter (statuses as of 03/28/2023) Active Problems Problem Noted Date GDM (gestational [...] Report levels to MFM weekly. 3. Recommend correspondence analyst consult. Lifestyle changes are also indicated [...] patient s hyperthyroidism be managed during by photogrammetric compilation specialist. 2. Recommend PTU or Methimazole in first trimester and Methimazole in second and third trimester for the management of hyperthyroidism. To balance the rare risks of hepatotoxicity (associated with Propylthiouracil (PTU) ) and methimazole embryopathy (associated with aplasia cutis and esophageal or choanal atresia), the [place] Thyroid Association and the [place] Association of Clinical Endocrinologists recommend treating hyperthyroidism with Propylthiouracil (PTU) in the first trimester and switching to methimazole in the second trimester. The [place] College of Obstetricians and Gynecologists states that [...] as of this encounter (statuses as of 03/28/2023) Resolved Problems Problem Noted Date Resolved Date [...] as of this encounter (statuses as of 03/28/2023) Immunizations Name Administration Dates Next Due Seasonal [...] Reading Time Taken Comments Blood Pressure 120/76 03/28/2023 8:25 AM EDT Pulse - - Temperature - - Respiratory Rate - - Oxygen Saturation - - Inhaled Oxygen Concentration - - Weight 94.3 kg (208 lb) 03/28/2023 8:25 AM EDT Height - - Body Mass Index 38.04 02/27/2023 11:27 AM EDT documented in this encounter Progress Notes * KIRSTEN Fox - 03/28/2023 8:28 AM EDT 19w2d No movement yet. Denies cramping/bleeding. Completed anatomy scan with [facility]. Diet controlled GDM, managed by [facility]. Recent TSH normal. Discussed MSAFP and role in screening for ONTD, declines. Following with DDS for tooth infection. Return in 4 weeks. KIRSTEN Reed documented in this encounter Nursing Notes * Ban Rhodes LPN - 03/28/2023 8:27 AM EDT 19w2d Denies vaginal bleeding/rom Absent movement No new concerns documented in this encounter Plan of Treatment Upcoming Encounters Date Type Specialty Care Team Description 04/25/2023 Office Visit Gynecology Obstetrics Mishel Sue, [place] [place] [address] 05/02/2023 Office Visit Maternal Medicine Lorena Carver, [address] [place] [address] 05/02/2023 Imaging Radiology 08/14/2023 Telemedicine Endocrinology Vannesa Puente PA-C [address] [place] [address] Health Maintenance Due Date Last [...] gestational diabetes mellitus (GDM) in second trimester documented in this encounter Care Teams Mechanical Engineering Technologist Relationship Specialty Start Date End Date Jethro Stevens DO [address] [place] [address] PCP - General Family Medicine 02/18/21 documented as of this encounter
--- OUTSIDE RECORDS SUMMARY | 2023-08-25 07:33 | External Medical Summary | Summary of Care ---
Author Name Unknown Organization [facility] Address [address] [place] [address] Phone [phone] Care Team Providers Care Bakery Deliverer Name Role Phone Jethro Stevens Primary Care Provider Reason for Referral * Evaluate & Treat - Unlimited Visits (Within 10 days (routine)) - Pending Review Specialty Diagnoses / Procedures Referred By Sharlene rivera Referred To Contact Panel Machine Operator Diagnoses Gestational diabetes mellitus (GDM), antepartum, gestational diabetes method of control unspecified Sisi Martines CRNP [address] [place] [address] Referral ID Status Reason Start Date Expiration Date Visits Requested Visits Authorized [id number] Pending Review Specialty Services Required 03/20/2023 1 1 Question Answer Referral Priority Within 10 days (routine) Program Type Chronic Disease Management Chronic Disease Management Diabetes in Alarm Settings Standard per protocol Comments Patient has One touch Verio Reason for Visit * Reason Comments Consultation class II obesity, as thma, hyperthyroid, anxiety, ama, hx gdm * Evaluate & Treat - Unlimited Visits (Within 10 days (routine)) - Authorized Specialty Diagnoses / Procedures Referred By Sharlene rivera Referred To Contact Obstetrics/Gynecology / Maternal Medicine Diagnoses Gestational diabetes mellitus (GDM), antepartum, gestational diabetes method of control unspecified Diann Spain CRNP [address] [place] [address] Windows Laptop Technician Ob Maternal Med [facility] [address] [place] [address] Referral ID Status Reason Start Date Expiration Date Visits Requested Visits Authorized [id number] Authorized Specialty Services Required 03/06/2023 999 [id number] Encounter Details Date Type Department Care Team Description 03/20/2023 Telemedicine Windows Laptop Technician Obstetrics Maternal Medicine, [place] [address] [place] [address] Sisi Martines CRNP [address] [place] [address] Gestational diabetes mellitus (GDM), antepartum, gestational diabetes method of control unspecified*; Obesity in , antepartum; Antepartum multigravida of advanced maternal age; Anxiety during ; Hyperthyroidism affecting , antepartum; Maternal asthma complicating ; Supervision of high risk in second trimester Allergies Active Allergy Reactions Severity Noted Date Comments Doxycycline 01/27/2023 Pollen 05/29/2013 Peanut Oil 05/29/2013 documented as of this encounter (statuses as of 03/20/2023) Medications Medication Sig Dispensed Refills Start Date [...] sugars 4x/day 1 Kit 0 03/06/2023 Active Amoxicillin-Pot Clavulanate 875-125 MG Oral TabletIndications :Dental infection Take 1 Tablet by mouth in the morning and 1 Tablet before bedtime. Do all this for 7 days. 14 Tablet 0 03/14/2023 3 Active OneTouch Verio In Vitro Strip (Glucose [...] after dinner. 200 Each 6 03/20/2023 Active OneTouch Verio In Vitro Strip (Glucose Blood)Indications :Gestational diabetes mellitus (GDM), antepartum, gestational diabetes method of control unspecified Check blood sugars 4x/day 100 Strip 6 03/06/2023 3 Discontinued OneTouch Delica Lancets 33GIndications:Ge stational diabetes mellitus (GDM), antepartum, gestational diabetes method of control unspecified Check blood sugar 4x/day 100 Each 6 03/06/2023 3 Discontinued documented as of this encounter (statuses as of 03/20/2023) Active Problems Problem Noted Date GDM (gestational [...] Report levels to MFM weekly. 3. Recommend hooker inspector consult. Lifestyle changes are also indicated [...] at this time Last Assessment & Plan: CONSIDERATIONS: We reviewed the most pertinent aspects of the following: Advanced maternal age (AMA) refers to a woman with a henry who will be at the age of 35 or older at the estimated time of delivery and may be associated with increased morbidity. Prior to the appointment the patient has had genetic screening and it was reported as low risk. In addition to the risk of chromosomal abnormalities, there is an increased risk of congenital/structural anomalies. RECOMMENDATIONS: Recommend MFM anatomy ultrasound at 19-20 weeks gestation. Hyperthyroidism affecting 01/18 Overview: Hyperthyroid / Graves [...] patient s hyperthyroidism be managed during by recruiter specialist. 2. Recommend PTU or Methimazole in first trimester and Methimazole in second and third trimester for the management of hyperthyroidism. To balance the rare risks of hepatotoxicity (associated with Propylthiouracil (PTU) ) and methimazole embryopathy (associated with aplasia cutis and esophageal or choanal atresia), the [place] [employer] and the [place] [employer] of Clinical Endocrinologists recommend treating hyperthyroidism with Propylthiouracil (PTU) in the first trimester and switching to methimazole in the second trimester. The [place] [employer] Gynec[employer] states that [...] as of this encounter (statuses as of 03/20/2023) Resolved Problems Problem Noted Date Resolved Date [...] as of this encounter (statuses as of 03/20/2023) Immunizations Name Administration Dates Next Due Seasonal [...] as of this encounter Progress Notes * KIRSTEN Oliva - 03/20/2023 1:14 PM EDT MATERNAL MEDICINE CONSULT Starr Dove 03/20/23 REFERRING PROVIDER: KIRSTEN Fox Patient location: HOME. I was in a hospital or clinic location. After connecting through televideo,patient was verified with two unique identifiers. 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 Methods to assure confidentiality were taken. Patient acknowledged consent and understanding of pr ivacy and security of the Telemedicine visit. The patient agreed to participate. Starr Dove is a 37 year old with intrauterine at 18w1d (Estimated Date of Delivery: 08/20/23 by 11w3d ultrasound) who presents today for an MFM consult due to class II obesity, maternal asthma, hyperthyroidism, anxiety, advanced maternal age and early gestational diabetes. HPI/CURRENT : pre- BMI=class 2 obesity (92.5 kg (204 lb); 5' 2"); FOB Ravi; complicated by above. Genetic testing: Low Risk Cell Free DNA [id number] Problems (from 01/26/23 to present) Problem Noted Resolved GDM (gestational diabetes mellitus) 03/06/2023 by KIRSTEN Fox No Overview Addendum 03/20/2023 1:12 PM by KIRSTEN Oliva Diagnosed at 16 weeks Nutrition consult ordered [...] blood sugars each week for MFM review Obesity in , antepartum 02/01/2023 by KIRSTEN Fox No Overview Addendum 03/20/2023 11:24 AM by KIRSTEN Oliva BMI: 37.3 Class II obesity Lab Results [...] AUTO - [facility] 338 02/01/2023 10:01 AM AMA (advanced maternal age) multigravida 35+ 02/01/2023 by KIRSTEN Fox No Overview Addendum 03/20/2023 1:05 PM by KIRSTEN Oliva Patient will be age 37 at time of delivery Low risk NIPT Declined genetic consult at this time Hyperthyroidism affecting 02/01/2023 by KIRSTEN Fox No Overview Addendum 03/20/2023 1:06 PM by KIRSTEN Oliva Hyperthyroid / Graves disease Did have iodine [...] meds currently. They are monitoring monthly labs. Anxiety during 02/01/2023 by KIRSTEN Fox No Overview Addendum 03/20/2023 12:45 PM by KIRSTEN Oliva Anxiety Currently managed with Prozac Reports a stable mood in . Denies any suicidal or homicidal ideation. Reports she has a good support system at home. Maternal asthma complicating 02/01/2023 by KIRSTEN Fox No Overview Addendum 03/20/2023 12:47 PM by KIRSTEN Oliva Asthma related to summer allergies, dust, pollen Managed with Albuterol as needed 03/20/23 last albuterol use: 6 months ago Denies hospitalizations or intubations in prior I have reviewed this patient's previous OB ultrasound reports, pertinent labwork and testing provided by her referring OB provider. Current Outpatient Medications Medication Sig Dispense Refill • Albuterol Sulfate HFA 108 (90 Base) MCG/ACT Inhalation Aerosol Solution Inhale 2 Puffs by mouthevery 4 hours as needed for Cough, Shortness of Breath or Wheezing. 18 g 3 • Amoxicillin-Pot Clavulanate 875-125 MG Oral Tablet Take 1 Tablet by mouth in the morning and 1 Tablet before bedtime. Do all this for 7 days. 14 Tablet 0 • FLUoxetine HCl 40 MG Oral Capsule (PROzac) Take by mouth 1 Capsule in the morning. 30 Capsule 11 • TwiiggTouch DelUserlike Live Chat Lancets 33G Check blood sugar 4x/day 100 Each 6 • SET Verio Flex System w/Device Kit Use as directed. Check blood sugars 4x/day 1 Kit 0 • Cloneuch Verio In Vitro Strip (Glucose Blood) Check blood sugars 4x/day 100 Strip 6 • 28-0.8 MG Oral Tablet Take by mouth. • Promethazine HCl 25 MG Oral Tablet (Phenergan) Take 0.5 Tablets by mouth every 8 hours as needed for Nausea. or vomiting 12 Tablet 0 No current facility-administered medications for this visit. Review of patient's allergies indicates: Allergen Reactions • Doxycycline • Environmental [Pollen] • Peanut Oil OB History Para Term AB Living 5 2 2 0 2 2 SAB IAB Ectopic Multiple Live Births 2 0 0 0 2 # Outcome Date GA Lbr Kirit/2nd Weight Sex Delivery Anes PTL Lv 5 Current 4 2016 3 Term 10/31/16 39w0d 3.26 kg (7 lb 3 oz) M Vag-Spont N GENARO Comments: Diet controlled GDM / Complications: GDM (gestational diabetes mellitus) 2 Term 10/02/13 37w6d 11:11 2.551 kg (5 lb 10 oz) F Vag-Spont EPI N GENARO Comments: 1st degree vaginal / nucchal cord x2 1 2011 6w0d Comments: no D&C Obstetric Comments FOB #1 Ravi Eyer, age 37, healthy Children are healthy Past Medical History: Diagnosis Date • Allergic rhinitis due to other allergen immunotherapy for 2 years • Anxiety 02/18/2021 • Asthma with severity to be determined 01/24/2000 ICD-10 update of inactive term • Attention deficit disorder without hyperactivity • GDM (gestational diabetes mellitus) • Graves disease • Hyperthyroidism 02/18/2021 • Reactive depression Past Surgical History: Procedure Laterality Date • DENTAL SURGERY PROCEDURE NEC 1 wisdom tooth • INCISION OF EARDRUM as child Myringotomy/with tubes REMOVE TONSILS & ADENOIDS, UNDER 12 as child Tonsillectomy/Adenoids,<12 Y/O Family History Problem Relation Age of Onset • Diabetes Mother 57 hx of TIA. during card cath • Hypertension Mother • Transient ischemic attack Mother during cardiac cath • No Past Hx Sister • Diabetes Grandmother (Maternal) • Hypertension Grandmother (Maternal) • Arthritis Grandmother (Maternal) • Heart Disorder Grandfather (Maternal) Social History Tobacco Use • Smoking status: Never • Smokeless tobacco: Never Vaping Use • Vaping Use: Never used Substance Use Topics • Alcohol use: Yes Comment: occ • Drug use: No REVIEW OF SYSTEMS: headaches: no nausea/vomiting: Occasional nausea; tooth abscess for past 1 week on antibiotics reports movement: no abdominal pain/tenderness/cramping/contractions: no vaginal bleeding: no vaginal leaking of fluid: no all other systems negative PHYSICAL EXAM: There were no vitals taken for this visit. General: Well appearing Psych: Alert to time, place, and person and Pleasant DISCUSSION/RECOMMENDATIONS: Problem List Items Addressed This Visit [id number] Obesity in , antepartum CONSIDERATIONS: • Discussed obstetrical risks associated with class II obesity (pre- BMI of 35 to 39.9) • Reviewed that the accuracy of ultrasound at diagnosing anomalies is significantly decreased for women with an increased BMI. RECOMMENDATIONS: • Recommend restricting weight gain during to 11-20 pounds. Patient should be referred for a nutrition consult. • Recommend evaluation for signs and symptoms (snoring, excessive daytime sleepiness witnessed apnea or unexplained hypoxia) of obstructive sleep apnea. If any of these are present, referral to Sleep Medicine specialist for further evaluation should be considered. • Recommend performing gestational diabetes mellitus screen now (if not performed at first visit) and repeat again at 26-28 weeks if early screen is normal. • Recommend Maternal- Medicine ultrasound for anatomy at 20 weeks and for growth every4 weeks thereafter. • For patients with Class 2 obesity, we recommend weekly surveillance starting at 37 weeks. AMA (advanced maternal age) multigravida 35+ CONSIDERATIONS: We reviewed the most pertinent aspects of the following: • Advanced maternal age (AMA) refers to a woman with a henry who will be at the ageof 35 or older at the estimated time of delivery and may be associated with increased morbidity. • Prior to the appointment the patient has had genetic screening and it was reported as low risk. • In addition to the risk of chromosomal abnormalities, there is an increased risk of congenital/structural anomalies. RECOMMENDATIONS: • Recommend MFM anatomy ultrasound at 19-20 weeks gestation. Hyperthyroidism affecting DISCUSSION: 1. Discussed with the patient that uncontrolled maternal hyperthyroidism is associated with both maternal and risks. Women may experience hyperthyroid symptoms, develop cardiac arrhythmias or osteoporosis, or experience thyroid storm. The risk to the fetus includes miscarriage, premature delivery, preeclampsia, growth restriction and demise. These risks are modifiable with thyroid-replacement medications. In patients with tachycardia from hyperthyroidism, [...] and goiter formation. RECOMMENDATIONS: 1. Recommend that patient’s hyperthyroidism be managed during by recruiter specialist. 2. Recommend PTU or Methimazole in first trimester and Methimazole in second and third trimester for the management of hyperthyroidism. To balance the rare risks of hepatotoxicity (associated with Propylthiouracil (PTU) ) and methimazole embryopathy (associated with aplasia cutis and esophageal or choanal atresia), the [place] [employer] and the [place] [employer] of Clinical Endocrinologists recommend treating hyperthyroidism with Propylthiouracil (PTU) in the first trimester and switching to methimazole in the second trimester. The [place] [employer]nec[employer] states that [...] regarding maternal diagnosis and treatment Anxiety during ANXIETY AND DEPRESSION CONSIDERATIONS: • Untreated maternal anxiety and depression may be associated with an increased risk of multiple poor obstetrical outcomes including miscarriages, low weight, and delivery. • Women with a history of anxiety or depression are at risk for recurrence both during and/or the period. • Studies of first-trimester SSRI exposure do not demonstrate consistent data to support an increased risk for structural malformations. • Anti-anxiety or depression medications have been associated with transient effects (withdrawal syndrome). RECOMMENDATIONS: • Mental illness can and should be treated during when the benefits of treatment outweigh potential risks. • Referral to behavioral health services as clinically indicated. Maternal asthma complicating CONSIDERATIONS: • Asthma symptoms may improve, worsen or remain unchanged in severity in . • Asthma is generally managed the same in as in the non- patient, as asthma-control medications are considered safe in . If asthma is well-controlled with medications prior to , it is recommended to continue the same medication regimen during . A patient should seek medical care immediately if an asthma flare does not respond to therapy. • Mild and well-controlled moderate asthma can be associated with excellent maternal and outcomes. • Severe and poorly controlled asthma may be associated with increased morbidity and mortality. • Asthma management includes monitoring of lung function with pulmonary function testing (when indicated), avoidance of triggers (such as tobacco smoke, mold, dust mite exposure, animal dander and cockroaches), and a step-care approach to pharmacologic therapy based on the severity of the patient's asthma. RECOMMENDATIONS: • Inhaled corticosteroids are the mainstay of therapy [...] with her primary OB provider or PCP. • Typically, patients do not need stress dose steroids as long as they continue their usual dose perioperatively (or during labor) and do not have primary renal failure or other problems with the pituitary axis. • Medications such as prostaglandin F2a (including Hemabate), ergonovine, and indomethacin (in patients who are aspirin allergic) should be used with caution. • Patients with moderate or severe persistent asthma should have Maternal- Medicine ultrasound for anatomy at 19-20 weeks. surveillance with growth ultrasounds and non-stress tests should be considered starting at 32 weeks. GDM (gestational diabetes mellitus) DISCUSSION: 1. Reviewed etiology and risks associated [...] less than 140). Medications should be adjusted tomaintain these target values. Report levels to [facility] weekly. 3. Recommend hooker inspector consult. Lifestyle changes are also indicated including weight managementand increased physical activity if not otherwise contraindicated [...] delivery should be accomplished by 41w 0d withtwice weekly surveillance after 40w 0d. - If patient requires medications to control blood sugars, then recommend twice weekly surveillance starting at 32 weeks and delivery after 39w 0d and accomplished by EDC. - If poor blood sugar control, please refer to Maternal Medicine for consideration of earlierdelivery. 7. Recommend intrapartum monitoring of blood sugars [...] in women with a history of GDM. Follow up ultrasound with Maternal Medicine is scheduled on 03/27/[address] Oglesby for anatomy scan secondary to class II obesity, maternal asthma, hyperthyroidism, anxiety, advanced maternal age and early gestational diabetes. Patient is aware of upcoming MFM appointment. Total time spent face to face in this visit was 30 minutes of which more than 50% was spent discussing and counseling the patient/caregiver(s) regarding class II obesity, maternal asthma, hyperthyroidism, anxiety, advanced maternal age and early gestational diabetes. Total time spent on this date of service including non face to face was 45 minutes in preparation, delivery, and documentation of care provided to Starr Dove, excluding time spent in performance of separately billable services.Details outlined above in impression and plan. KIRSTNE Oliva 03/20/2023 1:24 PM documented in this encounter Miscellaneous Notes * Assessment & Plan Note - KIRSTEN Oliva - 03/20/2023 1:08 PM EDT Associated Problem(s): GDM (gestational diabetes mellitus) DISCUSSION: 1. Reviewed etiology and risks associated [...] less than 140). Medications should be adjusted tomaintain these target values. Report levels to [facility] weekly. 3. Recommend hooker inspector consult. Lifestyle changes are also indicated including weight managementand increased physical activity if not otherwise contraindicated [...] delivery should be accomplished by 41w 0d withtwice weekly surveillance after 40w 0d. - If patient requires medications to control blood sugars, then recommend twice weekly surveillance starting at 32 weeks and delivery after 39w 0d and accomplished by EDC. - If poor blood sugar control, please refer to Maternal Medicine for consideration of earlierdelivery. 7. Recommend intrapartum monitoring of blood sugars [...] in women with a history of GDM. * Assessment & Plan Note - KIRSTEN Oliva - 03/20/2023 1:07 PM EDT Associated Problem(s): Maternal asthma complicating CONSIDERATIONS: • Asthma symptoms may improve, worsen or remain unchanged in severity in . • Asthma is generally managed the same in as in the non- patient, as asthma-control medications are considered safe in . If asthma is well-controlled with medications prior to , it is recommended to continue the same medication regimen during . A patient should seek medical care immediately if an asthma flare does not respond to therapy. • Mild and well-controlled moderate asthma can be associated with excellent maternal and outcomes. • Severe and poorly controlled asthma may be associated with increased morbidity and mortality. • Asthma management includes monitoring of lung function with pulmonary function testing (when indicated), avoidance of triggers (such as tobacco smoke, mold, dust mite exposure, animal dander and cockroaches), and a step-care approach to pharmacologic therapy based on the severity of the patient's asthma. RECOMMENDATIONS: • Inhaled corticosteroids are the mainstay of therapy [...] with her primary OB provider or PCP. • Typically, patients do not need stress dose steroids as long as they continue their usual dose perioperatively (or during labor) and do not have primary renal failure or other problems with the pituitary axis. • Medications such as prostaglandin F2a (including Hemabate), ergonovine, and indomethacin (in patients who are aspirin allergic) should be used with caution. • Patients with moderate or severe persistent asthma should have Maternal- Medicine ultrasound for anatomy at 19-20 weeks. surveillance with growth ultrasounds and non-stress tests should be considered starting at 32 weeks. * Assessment & Plan Note - KIRSTEN Oliva - 03/20/2023 1:05 PM EDT Associated Problem(s): Obesity in , antepartum CONSIDERATIONS: • Discussed obstetrical risks associated with class II obesity (pre- BMI of 35 to 39.9) • Reviewed that the accuracy of ultrasound at diagnosing anomalies is significantly decreased for women with an increased BMI. RECOMMENDATIONS: • Recommend restricting weight gain during to 11-20 pounds. Patient should be referred for a nutrition consult. • Recommend evaluation for signs and symptoms (snoring, excessive daytime sleepiness witnessed apnea or unexplained hypoxia) of obstructive sleep apnea. If any of these are present, referral to Sleep Medicine specialist for further evaluation should be considered. • Recommend performing gestational diabetes mellitus screen now (if not performed at first visit) and repeat again at 26-28 weeks if early screen is normal. • Recommend Maternal- Medicine ultrasound for anatomy at 20 weeks and for growth every4 weeks thereafter. • For patients with Class 2 obesity, we recommend weekly surveillance starting at 37 weeks. * Assessment & Plan Note - KIRSTEN Oliva - 03/20/2023 12:45 PM EDT Associated Problem(s): Anxiety during ANXIETY AND DEPRESSION CONSIDERATIONS: • Untreated maternal anxiety and depression may be associated with an increased risk of multiple poor obstetrical outcomes including miscarriages, low weight, and delivery. • Women with a history of anxiety or depression are at risk for recurrence both during and/or the period. • Studies of first-trimester SSRI exposure do not demonstrate consistent data to support an increased risk for structural malformations. • Anti-anxiety or depression medications have been associated with transient effects (withdrawal syndrome). RECOMMENDATIONS: • Mental illness can and should be treated during when the benefits of treatment outweigh potential risks. • Referral to behavioral health services as clinically indicated. * Assessment & Plan Note - KIRSTEN Oliva - 03/20/2023 12:43 PM EDT Associated Problem(s): Hyperthyroidism affecting DISCUSSION: 1. Discussed with the patient that uncontrolled maternal hyperthyroidism is associated with both maternal and risks. Women may experience hyperthyroid symptoms, develop cardiac arrhythmias or osteoporosis, or experience thyroid storm. The risk to the fetus includes miscarriage, premature delivery, preeclampsia, growth restriction and demise. These risks are modifiable with thyroid-replacement medications. In patients with tachycardia from hyperthyroidism, [...] and goiter formation. RECOMMENDATIONS: 1. Recommend that patient’s hyperthyroidism be managed during by recruiter specialist. 2. Recommend PTU or Methimazole in first trimester and Methimazole in second and third trimester for the management of hyperthyroidism. To balance the rare risks of hepatotoxicity (associated with Propylthiouracil (PTU) ) and methimazole embryopathy (associated with aplasia cutis and esophageal or choanal atresia), the [place] [employer] and the [place] [employer] Clinical Endocrinologists recommend treating hyperthyroidism with Propylthiouracil (PTU) in the first trimester and switching to methimazole in the second trimester. The [place] [employer]nec[employer] states that [...] of delivery regarding maternal diagnosis and treatment * Assessment & Plan Note - KIRSTEN Oliva - 03/20/2023 12:42 PM EDT Associated Problem(s): AMA (advanced maternal age) multigravida 35+ CONSIDERATIONS: We reviewed the most pertinent aspects of the following: • Advanced maternal age (AMA) refers to a woman with a henry who will be at the ageof 35 or older at the estimated time of delivery and may be associated with increased morbidity. • Prior to the appointment the patient has had genetic screening and it was reported as low risk. • In addition to the risk of chromosomal abnormalities, there is an increased risk of congenital/structural anomalies. RECOMMENDATIONS: • Recommend MFM anatomy ultrasound at 19-20 weeks gestation. documented in this encounter Plan of Treatment Upcoming Encounters Date Type Specialty Care Team Description 03/27/2023 Office Visit Maternal Medicine Ismael Oglesby DO [address] [place] [address] 03/27/2023 Imaging Radiology 03/28/2023 Office Visit Gynecology Obstetrics Backer, KIRSTEN Royal [address] [place] [address] 06/19/2023 Telemedicine Endocrinology Francis Clark CRNP [address] [place] [address] Scheduled Orders Name Type Priority Associated Diagnoses Orde r Schedule HEMOGLOBIN A1C Lab Routine Gestational diabetes mellitus (GDM), antepartum, gestational diabetes method of control unspecified Expected: 04/03/2023, Expires: 03/20/2024 Scheduled Referrals Name Type Priority Associated Diagnoses Orde r Schedule REMOTE PATIENT MONITORING REFERRAL Referral Within 10 days (routine) Gestational diabetes mellitus (GDM), antepartum, gestational diabetes method of control unspecified Ordered: 03/20/2023 Health Maintenance Due Date Last Done Comments [...] as of this encounter Visit Diagnoses Diagnosis Gestational diabetes mellitus (GDM), antepartum, gestational diabetes method of control unspecified- Primary Obesity in , antepartum Obesity complicating , childbirth, or the puerperium, antepartum condition or complication Antepartum multigravida of advanced maternal age Anxiety during Hyperthyroidism affecting , antepartum Maternal asthma complicating Other current maternal conditions classifiable elsewhere, complicating , childbirth, or the puerperium, unspecified as to episode of care Supervision of high risk in second trimester Unspecified high-risk documented in this encounter Care Teams Bakery Deliverer Relationship Specialty Start Date End Date Jethro Stevens DO [address] [place] [address] PCP - General Family Medicine 02/18/21 documented as of this encounter
--- OUTSIDE RECORDS SUMMARY | 2023-08-25 07:33 | External Medical Summary | Summary of Care ---
Author Name Unknown Organization [facility] Address [address] [place] [address] Phone [phone] Care Team Providers Care Golf Course Patroller Name Role Phone Jethro Stevens Primary Care Provider Reason for Visit * Reason Onset Date Comments Home Monitoring Orders Only 03/23/2023 Encounter Details Date Type Department Care Team Description 03/23/2023 Home Monitoring [facility]vel [facility] [address] [place] [address] Sisi Martines CRNP [address] [place], [place] [id number] GDM (gestational diabetes mellitus)* Allergies Active Allergy Reactions Severity Noted Date Comments Doxycycline 01/27/2023 Pollen 05/29/2013 Peanut Oil 05/29/2013 documented as of this encounter (statuses as of 03/23/2023) Medications Medication Sig Dispensed Refills Start Date [...] Oral Tablet Take by mouth. 0 Active [facility] Verio Flex System w/Device KitIndications:Gesta tional diabetes [...] after dinner. 200 Strip 6 03/20/2023 Active [employer] Del[employer] Lancets 33GIndications:Gesta tional diabetes mellitus (GDM), antepartum, gestational diabetes method of control unspecified Use to check blood sugar four times daily: Fasting in the morning, then one hour after breakfast, one hour after lunch and one hour after dinner. 200 Each 6 03/20/2023 Active documented as of this encounter (statuses as of 03/23/2023) Active Problems Problem Noted Date GDM (gestational [...] Report levels to MFM weekly. 3. Recommend fashion intern consult. Lifestyle changes are also indicated including [...] patient s hyperthyroidism be managed during by regulatory submissions specialist. 2. Recommend PTU or Methimazole in first trimester and Methimazole in second and third trimester for the management of hyperthyroidism. To balance the rare risks of hepatotoxicity (associated with Propylthiouracil (PTU) ) and methimazole embryopathy (associated with aplasia cutis and esophageal or choanal atresia), the [place] [employer] and the [place] [employer] Endocrinologists recommend treating hyperthyroidism with Propylthiouracil (PTU) in the first trimester and switching to methimazole in the second trimester. The [place] [employer] states that [...] as of this encounter (statuses as of 03/23/2023) Resolved Problems Problem Noted Date Resolved Date [...] as of this encounter (statuses as of 03/23/2023) Immunizations Name Administration Dates Next Due Seasonal [...] as of this encounter Progress Notes * [facility] Stem Shaper - 03/23/2023 3:30 PM EDT Patient has been successfully enrolled to the [id number] Diabetes Management in program. Standard alarm settings have been set as follows: Singular glucose level > 200 Singular glucose level < 60 Patient has been advised to take blood sugar four times a day (fasting upon waking, and one hour after each meal). Patient has been oriented to remote patient monitoring, assisted with initial device set-up, and provided with instruction and education regarding the program. Patient understands that this monitoring should not be used as a replacement for emergency and/or urgent care. If patient experiences any urgent symptoms, they are aware to call office/claims consultant provider for additional instructions. In emergency situations, they will report directly to the ED for further evaluation. If you would like to customize the alert parameters and/or instructions for this patient, please let me know and we can have them changed. documented in this encounter Plan of Treatment Upcoming Encounters Date Type Specialty Care Team Description 03/27/2023 Office Visit Maternal Medicine Ismael Oglesby, DO [address] [facility] [place] [address] 03/27/2023 Imaging Radiology 03/28/2023 Office Visit Gynecology Obstetrics Backer, KIRSTEN Royal [address] [facility] [place] [address] 08/14/2023 Telemedicine Endocrinology Vannesa Puente PA-C [address] [facility] [address] Health Maintenance Due Date Last Done Comments [...] as of this encounter Visit Diagnoses Diagnosis GDM (gestational diabetes mellitus)- Primary Abnormal maternal glucose tolerance, complicating , childbirth, or the puerperium, unspecified as to episode of care documented in this encounter Care Teams Golf Course Patroller Relationship Specialty Start Date End Date Jethro Stevens DO [address] [place] [address] PCP - General Family Medicine 02/18/21 documented as of this encounter
--- OUTSIDE RECORDS SUMMARY | 2023-08-25 07:33 | External Medical Summary | Summary of Care ---
Author Name Unknown Organization [facility] Address [address] [facility] [place] [address] Phone [phone] Care Team Providers Care Cap Cutter Name Role Phone Mendoza Stevensvor Reji Primary Care Provider Reason for Visit * Reason Comments DSMT INITIAL * Evaluate & Treat - Unlimited Visits (Within 10 days (routine)) - Pending Review Specialty Diagnoses / Procedures Referred By Sharlene rivera Referred To Contact Ken[employer] Terminal Operator / Nutrition Services Diagnoses Gestational diabetes mellitus (GDM), antepartum, gestational diabetes method of control unspecified MichaelerDiann CRNP [address] [place] [address] Referral ID Status Reason Start Date Expiration Date Visits Requested Visits Authorized [id number] Pending Review Specialty Services Required 03/06/[phone] Encounter Details Date Type Department Care Team Description 03/23/2023 [facility] [address] [place] [address] [place] [id number] Deana Dejesus RDN [address] [place] [address] [place] [id number] GDM (gestational diabetes mellitus)*; Supervision of high risk in second trimester; Obesity in , antepartum; Anxiety during ; Maternal asthma complicating ; [...] Oral Tablet Take by mouth. 0 Active Hit the Mark Verio Flex System w/Device KitIndications:Gesta tional diabetes mellitus (GDM), antepartum, gestational diabetes method of control unspecified Use as directed. Check blood sugars 4x/day 1 Kit 0 03/06/2023 Active Hit the Mark Verio In Vitro Strip (Glucose Blood)Indications:Ge stational diabetes mellitus (GDM), antepartum, gestational diabetes method of control unspecified Use to check blood sugar four times daily: Fasting in the morning, then one hour after breakfast, one hour after lunch and one hour after dinner. 200 Strip 6 03/20/2023 Active Hit the Mark DelHigh Brew Coffee Lancets 33GIndications:Gesta tional diabetes mellitus (GDM), antepartum, [...] 89 03/06/2023 07:20 AM HEMOGLOBIN A1C - KPAILER 5.6 04/08/2022 07:10 AM She reports her [...] 03/20/23: MFM ADAPT consult complete. Enrolled in [facility]. Instructions provided to report blood sugars [...] Report levels to MFM weekly. 3. Recommend pocketed spring assembler consult. Lifestyle changes are also indicated including [...] patient s hyperthyroidism be managed during by disability benefits specialist. 2. Recommend PTU or Methimazole in first trimester and Methimazole in second and third trimester for the management of hyperthyroidism. To balance the rare risks of hepatotoxicity (associated with Propylthiouracil (PTU) ) and methimazole embryopathy (associated with aplasia cutis and esophageal or choanal atresia), the [place] Thyroid Association and the [place] Association of Clinical Endocrinologists recommend treating hyperthyroidism with Propylthiouracil (PTU) in the first trimester and switching to methimazole in the second trimester. The [place] College of Obstetricians and Gynecologists states that [...] starting at 32 weeks. Family history of TN (myocardial infarct ion) 02/18/2021 Hyperthyroidism 02/18/2021 Anxiety [...] * Patient Instructions* Deana Dejesus RDN - 03/23/2023 11:29 AM EDT Nutrition: To improve blood glucose control I will change timing of orange juice to later in the day and will avoid regular sprite documented in this encounter Progress Notes * Deana Dejesus RDN - 03/23/2023 11:00 AM EDT DIABETES SELF-MANAGEMENT TRAINING/INITIAL NOTE Name: Starr Dove Date: 03/23/2023 Patient location: HOME. I was not in a hospital or clinic location. After connecting through televideo, patient was verified with two unique identifiers. 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 She has visit with Maternal Medicine staff for overview of diabetes management during , including glucometer instruction on Monday. Now in for nutrition education. Participant is taking vitamins. Reports diarrhea from recent antibiotics, occasional nausea. Participant is enrolled in [facility]. Participant plans to bottle feed. No main concerns. In your words, what is diabetes? Higher blood sugar during Do you know the risks of uncontrolled diabetes? No Do you believe that diabetes can be controlled? Yes Are you ready to make small changes to help with diabetes self-management: Yes What type of diabetes do you have? Gestational Diabetes Mellitus: Are you aware of the post- glucose screening recommendations? No Female of childbearing age with any type of diabetes or considering . Yes - What is your understanding of the importance of glycemic control prior to and during ? Does not know Diabetes diagnosis year: 2022 Do you have a family history of diabetes? Yes and mom and grandmother and had GDM with son Have you had any previous diabetes education? No Support systems: Significant other Barriers to care: None Special Needs: None Psychosocial Screening: Lately have you been feeling down, depressed or hopeless most of the day? No How Do You Manage Stress? Prescribed medication Baby goats bottle fed Food Insecurity: Within the past 12 months, I worried whether our food would run out before we got money to buy more: No and Within the past 12 months, the food we bought just did not last and we did not have money to buy more: No Sleep Health: encouraged sleep apnea test How many hours are you sleeping during the night? 6 Do you have difficulty falling or staying asleep? Yes - was working 3rd shift - is trying to adjusther schedule Do you snore? Yes Are you waking up during the night with symptoms of low glucose levels (shaky, sweaty, nightmares)?No Are you waking up during the night to urinate frequently? Yes Diabetes Medications: N/A Monitoring blood glucose, interpreting [...] Average Glucose 111 <126 mg/dL At goal/target 3 hour glucose tolerance test on 03/06/23 was [phone] Self-Monitoring Blood Glucose Source of Information: Participant verbally reviewed from memory Fasting 80-85 1 hour after meals 140-151 Hypoglycemia?: No Diet: Describes typical diet history/24-hour recall Breakfast: 2 [place] (white) with butter , orange juice 4-6oz, water Snacks: none Lunch: Chicken, mashed potatoes and corn, regular sprite Snacks: none Dinner: Grilled cheese and tomato soup, green beans, water and sprite Snacks: Grapes and blueberries Drinks: [place] juice, sprite, water - trying to cut out caffeine Does not like milk, eats cheese and yogurt Weight management review: Wt Readings from Last 6 Encounters: 02/27/23 93.9 kg (207 lb) 02/01/23 92.3 kg (203 lb 6.4 oz) 07/08/22 92.6 kg (204 lb 1.9 oz) 06/15/22 93 kg (205 lb) 06/10/22 92.7 kg (204 lb 6 oz) 05/24/22 94.9 kg (209 lb 5 oz) Prepregnancy weight: 180 lb Prepregnancy BMI: obese Recommended weight gain by term : 11-20 lb Total weight gain in : 27 lb at 18 weeks 4 days gestation which is above goal. Goal is 0.5 lb gain per week until delivery. Physical Activity: Walks the dogs, baby goats, 2 kids (9 and 6 yo) ADA STANDARDS OF CARE/BUNDLE MEASURES Diabetes Bundle / Standards of Care: Gestational Diabetes Participant Therapy Management Plan: Hypertension: BP Readings from Last 3 Encounters: 02/27/23 122/78 02/01/23 124/78 07/08/22 116/72 Gestational Diabetes Participant, being monitored by TELEPHONE SALES AGENT. Dyslipidemia: No results found for: LDL No results found for: TRIG, CHOL, HDL Gestational Diabetes Mellitus Participant No recent results to assess Kidney function review: No results found for: ESTIMATED GLOMERULAR FILTRATION RATE - [facility] No results found for: ALBUMIN / CREATININE RATIO No results found for: PROTEIN/ CREATININE RATIO Gestational Diabetes Mellitus Participant No recent results to assess DSMT Initial Visit Assessment of Content Areas: Choose the answer that represents the participant's competency in each area. All need to be assessed at initial. Areas taught must match intervention. If content area not assessed and/or intervened today, it will be deferred to future session. Diabetes disease process and treatment process: Needs instruction (1) Incorporating nutrition management into lifestyle: Needs instruction (1) Incorporating physical activity into lifestyle: Needs instruction (1) Using medications safely: Needs instruction (1) Monitoring blood glucose, interpreting and using results: Needs review (2) Prevention, detection, and treatment of acute complications: Needs instruction (1) Prevention, detection, and treatment of chronic complications: Needs instruction (1) Developing strategies to address psychosocial issues: Comprehends quiroz points (3) Developing strategies to promote health/change behavior: Needs review (2) DSMT/ Diabetes MNT intervention: Pathophysiology: Defined disease process. Discussed treatment options. Educated on and reviewed ways to help decrease insulin resistance for better blood glucose control. Nutrition: GDM nutrition: Educated on rationale and guidelines of nutritional management of GDM. Educated on foods high in calcium and increased needs during . Educated on Caffeine recommendations. Educated on low-mercury fish/seafood options and importance of [place] 3 fatty acids (DHA/EPA) on brain development. Taught participant how to read a food label. Stressed importance of avoiding sugar sweetened beverages, fruit juices. Encouraged bedtime snack 8-10 hours before fasting test the next day. Individualized meal pattern provided = Breakfast: 15-30 grams carbohydrate Snack: 15 grams carbohydrate Lunch: 45-60 grams carbohydrate Snack: 15 grams carbohydrate Dinner: 45-60 grams carbohydrate Bedtime snack: 30 grams carbohydrate Physical Activity: Reframed physical activity as natural "medication" that can have long lasting blood glucose lowering effects after activity depending on level of intensity. Medication: Medication options for Monitoring: blood glucose and targets: Educated on blood glucose monitoring and recommended testing times of fasting and 1-OR 2-hour post meals with targets of less than 95 fasting, 1-hour post meal of less than 140 OR 2- hour post meal of less than 120. Encouraged logging blood glucoses and reported readings 1 time weekly to care team. Chronic Complications: Discussed risk of developing Type 2 diabetes Promote health/Change behavior: Educated on strategies for setting Specific Measurable Achievable Realistic Time-bound (SMART) goals. Participant Selected Behavioral Objective: Nutrition: To improve blood glucose control I will change timing of orange juice to later in the day and will avoid regular sprite Recommended Medication Changes: No changes. Education materials given to participant/caregiver and reviewed during today's visit: Milady/Aiyana materials in preferred language Diabetes Self-Management Support:: Apps/Smart Phone Technology: [employer] Possible Future Topics: Content areas that were not assessed in first visit: All content areas have been assessed. Time Spent With Patient: Time in: 10:56 AM Time out: 11:30 AM Billing: DSMT: 30 Minutes Plan for Return: Visit date not found 4-6 weeks Participant provided with contact information for Diabetes Care and Methodologist. [facility] providers within the system are able to see [place] [employer] Association education and outcomes within the participant's electronic medical record. Deana Dejesus RDN, NUTRITION SERVICES [address] [facility]EVIN Diabetes Care and Methodologist documented in this encounter Miscellaneous Notes * Pt Handout (on AVS) - Deana Dejesus RDN - 03/23/2023 11:26 AM EDT Images from the original note were not included. [id number] What Is Gestational Diabetes? Diabetes is when your body doesn?t use blood sugar normally. Gestational diabetes happens only in . When food is digested, it turns into sugar (glucose) that goes into your bloodstream. Yourbody sends out insulin. This is a hormone that helps your cells use this blood sugar for energy. Changes in your body during may affect this process. This can cause your blood sugar to be too high. This can cause problems for both you and your baby. You can take steps to control your blood sugar. This will help reduce the risks for you and your baby. Managing gestational diabetes You need to control your blood sugar while you are . Your healthcare team will help you make a plan to do this. This plan will include: · Eating the right foods. This is the main way to control your blood sugar. You need to eat a variety of healthy foods each day. To help you plan changes in your diet, you will likely work with a registered dietitian. This is an expert on food and nutrition. The dietitian may have you take part harman nutrition program to helps you reach your goals. · Getting exercise. Your body uses more blood sugar when you exercise. Your healthcare team can help you pick the best kinds of exercise for you. · Checking your blood sugar. You will likely need to check your blood sugar at home. You will do this 2 or more times a day. Your healthcare team will teach you how. They will talk with you about your blood sugar goals. Your blood sugar may also be tested every week or so at a clinic. If your blood sugar stays too high, you may need to have insulin shots during your . Risks to your baby If your blood sugar stays high, your baby is at risk for these problems: · Your baby may grow too large. If your blood sugar stays too high, your baby may grow too large. This is called macrosomia. This means a baby is too big for a safe vaginal . A large baby may get their shoulder stuck behind the pubic bone during . This is called shoulder dystocia. The baby's arms and shoulders could be injured. This may cause permanent arm damage. The baby may also have low oxygen levels (hypoxia) while they are stuck. Hypoxia can lead to cerebral palsy. In rare cases, it can lead to . · Your baby?s organs may not be fully grown at . If you have diabetes, your baby may need to be delivered early. This may be because of problems with the . Or it may be because of risks to you or your baby. If your baby is delivered early, their lungs may not work well. This is called respiratory distress syndrome (RDS). Your baby's liver also may not work normally. And your baby may have yellow color in their skin and eyes (jaundice) after . · Your baby?s blood sugar may be low after . If your blood sugar is too high, your baby makesextra insulin. The baby will keep making extra insulin right after . Your baby may need to be treated for low blood sugar. · Your baby could be stillborn. This is very rare. But your baby could before if your blood sugar stays high for too long. Risks to you If you don?t control your blood sugar, you are more likely to have: · High blood pressure. High blood sugar makes you more likely to have high blood pressure during your . This is a danger to your health. It could lead to early delivery for your baby. · Infections. High blood sugar makes you more likely to have bladder, kidney, and vaginal infections. · Trouble breathing. You may feel short of breath. High blood sugar can cause too much fluid around the baby. This is called polyhydramnios. Your abdomen gets big and pushes up on your lungs. · Difficult labor. Your delivery may be harder. And your recovery may take longer. If your blood sugar stays too high, your baby may grow too large. A large baby might cause injury to you during . Or the baby may have to be delivered by section (). This means making a cut (incision) in your abdomen and uterus. A is a common risk of gestational diabetes. Reduce your future risk for type 2 diabetes Women who have gestational diabetes are at higher risk of type 2 diabetes later. You are also at higher risk for gestational diabetes in your next . You can help reduce your risk in these ways: · Lose excess weight. · Be as active as you can. · Eat more fruits and vegetables. · Eat fewer processed foods. · Get regular blood tests to check for diabetes. Who is at risk for gestational diabetes? You're more at risk if you: · Are overweight · Have a family history of diabetes · Have had a baby who before · Had gestational diabetes in the past · Are , , , [place] or [place] , or How daily issues affect your health Many things in your daily life impact your health. This can include transportation, money problems,housing, access to food, and assistant child care teacher. If you can?t get to medical appointments, you may not receive the care you need. When money is tight, it may be difficult to pay for medicines. And living farfrom a grocery store can make it hard to buy healthy food. If you have concerns in any of these or other areas, talk with your healthcare team. They may know of local resources to assist you. Or they may have a staff person who can help. Last Reviewed Date: 2021 The [employer]. All rights reserved. This information is not intended as a substitute for professional medical care. Always follow your healthcare professional's instructions. * Pt Handout (on AVS) - Deana Dejesus RDN - 03/23/2023 11:26 AM EDT Images from the original note were not included. [id number] Understanding Carbohydrates A car needs the right type of fuel to run. And you need the right kind of food to function. To keepyour energy level up, your body needs food that has carbohydrates (carbs). But carbs raise blood sugar levels higher and faster than other kinds of food. Your dietitian will work with you to figure out the amount of carbs you need. Carbs come in 3 types: starches, sugars, and fiber. Starches Starches are found in grains, some vegetables, and beans. Grain products include bread, pasta, cereal, and tortillas. Starchy vegetables include potatoes, peas, corn, mcclellan beans, yams, and squash. Kidney beans, carey beans, black beans, garbanzo beans, and lentils also have starches. Sugars Sugars are found naturally in many foods. Or they can be added. Foods that contain natural sugar include fruits and fruit juices, dairy products, honey, and molasses. Added sugars are found in most desserts, processed foods, candy, regular soda, and fruit drinks. These are very helpful to treat lowblood sugar (hypoglycemia). They give you sugar quickly. Try to keep at least 15 to 20 grams of these simple sugars with you at all times. Eat or drink these if you start to have symptoms of low blood sugar. Fiber Fiber comes from plant foods. Your body can't digest most fiber. Instead of raising blood sugar levels like other carbs, fiber stops blood sugar from rising too fast. Fiber is found in fruits, vegetables, whole grains, beans, peas, and many nuts. Carb counting Keep track of the amount of carbs you eat. This can help you keep the right balance of carbs, physical activity, and medicine. The amount of carbs you need will be different from what other people need. How much you need depends on many things. These include your health, the medicines you take, andhow active you are. Your healthcare team will help you figure out the right amount of carbs for you. You may start with 45 to 60 grams of carbs per meal, depending on your case. Carb counting is a system that helps you keep track of the carbohydrates you eat at each meal. Carbs come from many foods. These include grains, starchy vegetables, fruit, milk, beans, and snackfoods. You can either count carbohydrate grams or carbohydrate servings. When you count carbohydrate servings, 1 carbohydrate serving = 15 grams of carbohydrates. Here are some examples of foods that have about 15 grams of carbs (1 serving of carbohydrates): · 1/2 cup of canned or frozen fruit · A small piece of fresh fruit (4 ounces) · 1 slice of bread · 1/2 cup of oatmeal · 1/3 cup of rice · 4 to 6 crackers · 1/2 Congolese muffin · 1/2 cup of black beans · 1/4 of a large baked potato (3 ounces) · 2/3 cup of plain fat-free yogurt · 1 cup of soup · 1/2 cup of casserole · 6 chicken nuggets · 4-[id number]-[id number] brownie or cake without frosting · 2 small cookies · 1/2 cup of ice cream or sherbet Carb counting is easier when food labels are available. Look at the label to see how many grams of total carbs per serving the food contains. Then you can figure out how much you should eat. If your food doesn't have a nutrition label, you should be able to get an idea how many carbs there are per serving by using a book or website. Two very important lines to look at on the label are the serving size and the total carbohydrate amount per serving. Here are some tips for using food labels to count your carbs: · Check the serving size. The information on the label is based on that serving size. If you eat more than the listed serving size, you may have to double or triple the other information on the label. · Check the total grams of carbs. Total carbohydrate from the label includes sugar, starch, and fiber. Be sure to use the total carbohydrate number (minus the fiber) and not sugar alone. · Know how many grams of carbs you can have. Be familiar with the matching portion sizes. · Compare labels. Compare the labels of different products. Look at serving sizes and total carbs to find the products that work best for you. · Don't forget protein and fat. With the focus on carb counting, it might be easy to forget protein and fat in your meals. Don't forget to include sources of protein and healthy fat to balance your meals. Also watch how much salt (sodium) you eat. This is especially true if you have high blood pressure. If you have diabetes, limit the amount of sodium to less than 2,300 mg a day. It?s also important to be consistent with the amount of carbs and time you eat when taking a fixed dose of diabetes medicine. Work with your healthcare provider or dietitian if you need more help. They can help you keep track of your carbs. They can also help you figure out how many grams of carbs you should have. Last Reviewed Date: 2021 © The [employer]. All rights reserved. This information is not intended as a substitute for professional medical care. Always follow your healthcare professional's instructions. * Pt Handout (on AVS) - Deana Dejesus RDN - 03/23/2023 11:26 AM EDT Images from the original note were not included. [id number] Healthy Meals for Diabetes Ask your healthcare team to help you make a meal plan that fits your needs. Your meal plan tells you when to eat your meals and snacks, what kinds of foods to eat, and how much of each food to eat. You don?t have to give up all the foods you like. But you do need to follow some guidelines. A healthcare provider will help you develop a meal plan that fits your needs. Choose healthy carbohydrates Starches, sugars, and fiber are all types of carbohydrates (carbs). Carbs can get a bad reputation,especially since they affect your blood sugar. But your body benefits from the right amount of healthy carbs. Fiber can help lower your cholesterol and triglycerides. Fiber is also healthy for your heart. You should have 20 to 35 grams of total fiber each day. Fiber comes from plants. Fiber-rich foods include: · Whole-grain breads and cereals · Nuts · Brown rice and quinoa · Whole-wheat pasta · Fruits and vegetables · Beans and peas Keep track of the amount of carbs you eat. This can help you keep the right balance of physical activity and medicine. The amount of carbs needed will vary for each person. It depends on many things such as your health, the medicines you take, and how active you are. Your healthcare team will help you figure out the right amount of carbs for you. You may start with around 45 to 60 grams of carbs per meal, depending on your situation. Here are some examples of foods containing about 15 grams of carbs (1 serving of carbs): · 1/2 cup of canned or frozen fruit · A small piece of fresh fruit (4 ounces) · 1 slice of bread · 1/2 cup of oatmeal · 1/3 cup of rice · 4 to 6 crackers · 1/2 [place]ese muffin · 1/2 cup of black beans · 1/4 of a large baked potato (3 ounces) · 2/3 cup of plain fat-free yogurt · 1 cup of soup · 1/2 cup of casserole · 6 chicken nuggets · 7-yefj-fpbvpo brownie or cake without frosting · 2 small cookies · 1/2 cup of ice cream or sherbet Choose healthy protein foods Proteins plays a quiroz role in building healthy muscles, bones, skin, and many other parts of your body. Eating protein that's low in fat can help you control your weight. It also helps keep your hearthealthy. Low-fat protein foods include: · Fish · Plant proteins, such as lentils, beans, peas, nuts, and soy products like tofu and soymilk · Lean meat with all visible fat removed · Poultry with the skin removed · Low-fat or nonfat milk, cheese, and yogurt Limit unhealthy fats and sugar Saturated and trans fats are unhealthy for your heart. They raise LDL ("bad") cholesterol. Fat is also high in calories, so it can make you gain weight. To cut down on unhealthy fats and sugar, limitthese foods: · Butter or margarine · Palm and palm kernel oils and coconut oil · Cream · Cheese · Lorenzo · Lunch meats · Ice cream · Sweet bakery goods such as pies, muffins, and donuts · Jams and jellies · Candy bars · Regular sodas How much to eat The amount of food you eat affects your blood sugar. It also affects your weight. Your healthcare team will tell you how much of each type of food you should eat. · Use measuring cups and spoons and a food scale to measure serving sizes. · Learn what a correct serving size looks like on your plate. This will help when you're away fromhome and can?t measure your servings. For instance, a serving of meat is about the size of the palmof your hand. · Eat only the number of servings given on your meal plan for each food. Don?t take seconds. · Learn to read food labels. Be sure to look at serving size, total carbohydrates, fiber, calories, sugar, salt, and saturated and trans fats. Look for healthier options to foods that have added sugar or salt. · Plan ahead for parties. Then you can still have a good time without going overboard with unhealthy food choices. Set a good example yourself by bringing a healthy dish to [employer]. Choose healthy snacks When it comes to snacks, we often think about foods with added sugar and fats. But there are many other options for healthier snack choices. Here are a few snack ideas to choose from: Snacks with less than 5 grams of carbohydrates · 1 piece of string cheese · 3 celery sticks plus 1 tablespoon of peanut butter · 5 damico tomatoes plus 1 tablespoon of ranch dressing · 1 hard-boiled egg · 1/4 cup of fresh blueberries · 5 baby carrots · 1 cup of light popcorn · 1/2 cup of sugar-free gelatin · 15 almonds Snacks with about 10 to 20 grams of carbohydrates · 1/3 cup of hummus plus 1 cup of fresh cut nonstarchy vegetables (carrots, green peppers, broccoli, celery, or a mix) · 1/2 cup of fresh or canned fruit plus 1/4 cup of cottage cheese · 1/2 cup of tuna salad with 4 crackers · 2 rice cakes and a tablespoon of peanut butter · 1 small apple or orange · 3 cups light popcorn · 1/2 of a turkey sandwich (1 slice of whole-wheat bread, 2 ounces of turkey, and mustard) Portion sizes are important to controlling your blood sugar and staying at a healthy weight. Stock up on healthy snack items so you always have them on hand. When to eat Your meal plan will likely include breakfast, lunch, dinner, and some snacks. · Try to eat your meals and snacks at about the same times each day. · Eat all your meals and snacks. Skipping a meal or snack can make your blood sugar drop too low. It can also cause you to eat too much at the next meal or snack. Then your blood sugar could get toohigh. Last Reviewed Date: 2021 © [employer]. All rights reserved. This information is not intended as a substitute for professional medical care. Always follow your healthcare professional's instructions. documented in this encounter Plan of Treatment Upcoming Encounters Date Type Specialty Care Team Description 03/27/2023 Office Visit Maternal Medicine Ismael Oglesby DO [address] [place] [address] 03/27/2023 Imaging Radiology 03/28/2023 Office Visit Gynecology Obstetrics BackerDiann CRNP [address] [place] [address] 08/14/2023 Telemedicine Endocrinology Vannesa Puente PA-C [address] [place] [address] Scheduled Referrals Name Type Priority Associated Diagnoses Orde r Schedule DIABETES MANAGEMENT EDUCATION (ADA) REFERRAL Referral Within 10 days (routine) Gestational diabetes mellitus (GDM), antepartum, gestational diabetes method of control unspecified Ordered: 03/06/2023 Health Maintenance Due Date Last Done Comments [...] or the puerperium, antepartum condition or complication Anxiety during Maternal asthma complicating Other current maternal conditions classifiable elsewhere, complicating , childbirth, or the puerperium, unspecified as to episode of care Diet controlled gestational diabetes mellitus (GDM) in second trimester documented in this encounter Care Teams Cap Cutter Relationship Specialty Start Date End Date Jethro Stevens DO [address] [place] [address] PCP - General Family Medicine 02/18/21 documented as of this encounter
--- OUTSIDE RECORDS SUMMARY | 2023-08-25 07:34 | External Medical Summary | Summary of Care ---
Author Name Unknown Organization [facility] Address [address] [facility] [address] Phone [phone] Care Team Providers Care Customer Experience Retail Clerk Name Role Phone Mendoza Stevensvor Reji Primary Care Provider Reason for Visit * Reason Comments Outpatient Testing Encounter Details Date Type Department Care Team Description 03/06/2023 Laboratory Laboratory, [facility] [address] [place] [address] [facility] [address] [place] [address] Glucose intolerance Allergies Active Allergy Reactions Severity Noted Date Comments Doxycycline 01/27/2023 Pollen 05/29/2013 Peanut Oil 05/29/2013 documented as of this encounter (statuses as of 03/06/2023) Medications Medication Sig Dispensed Refills Start Date [...] Active Promethazine HCl 25 MG Oral Tablet (Phenergan)Indicat ions:History of nausea and vomiting Take 0.5 Tablets by mouth every 8 hours as needed for Nausea. or vomiting 12 Tablet 0 01/02/2023 Active Additional Information Patient not taking.Reported on 01/27/2023 28-0.8 MG Oral Tablet Take by mouth. 0 Active documented as of this encounter (statuses as of 03/06/2023) Active Problems Problem Noted Date Supervision of high-risk , unsp ecified trimester 02/01/2023 Obesity in , antepartum 023 Overview: Class 2 Early GTT elevated, 3 hr GTT ordered Growth q4 wks, NSTs 37wks AMA (advanced maternal age) multigravida 35+ 02/01/2023 Overview: Low risk NIPT Hyperthyroidism affecting 01/18 Overview: TSH Results: Lab Results Component Value Date/Time TSH - [facility] 0.41 02/01/2023 10:01 AM TSH - [facility] 2.07 12/01/2022 06:55 AM TSH - [facility] 2.12 09/16/2022 07:33 AM TSH - [facility] 0.01 (A) 01/20/2021 12:00 AM TSH - [facility] <0.01 (A) 12/16/2020 12:00 AM TSH - [facility] 0.01 (A) 12/11/2020 12:00 AM managed by endocrinology, no meds as of NOB. They are monitoring monthly labs. Anxiety during 02/01/2023 Overview: Prozac Maternal asthma complicating 0 02/01/2023 Overview: R/t allergies, seasonal History of gestational diabetes in prior , currently 02/01/2023 Overview: Diet controlled Family history of [place] (myocardial infarct ion) 02/18/2021 Hyperthyroidism 02/18/2021 Anxiety 02/18/2021 Graves disease 02/18/2021 Other allergic rhinitis 07/30/2001 Overview: ICD-10 update of inactive term Asthma with severity to be determined Overview: ICD-10 update of inactive term ATTN DEFIC NONHYPERACT 01/24/2000 EXT ASTHMA W-O STAT ASTH Dysmenorrhea Estimated Date of Delivery Comme nts Yes 08/20/2023 Based on Ultraso und documented as of this encounter (statuses as of 03/06/2023) Resolved Problems Problem Noted Date Resolved Date History of delivery 02/01/202301/18 Overview: 36 wks Encounter for supervision of other normal pregna [...] as of this encounter (statuses as of 03/06/2023) Immunizations Name Administration Dates Next Due Seasonal [...] 03/27/2023 Office Visit Maternal Medicine Ismael Oglesby, [address] [place] [address] 03/27/2023 Imaging Radiology 03/28/2023 Office Visit Gynecology Obstetrics Backer, DiannKIRSTEN Curran [address] [place] [address] 06/19/2023 Telemedicine Endocrinology Francis Clark CRNP [address] [place] [address] Pending Results Name Type Priority Associated Diagnoses Date /Time GESTATIONAL GLUCOSE TOLERANCE, 3 HOUR Lab Routine Glucose intolerance 03/06/2023 7:20 AM EDT 100-G GESTATIONAL GLUCOSE, 2 HOUR Lab Routine Glucose intolerance 03/06/2023 9:22 AM EDT 100-G GESTATIONAL GLUCOSE, 3 HOUR Lab Routine Glucose intolerance 03/06/2023 10:20 AM EDT Health Maintenance Due Date Last [...] Procedure Name Priority Date/Time Associated Diagnosis Comments 100-G GESTATIONAL GLUCOSE, 1 HOUR Routine 03/06/2023 8:25 AM EDT Glucose intolerance 100-G GESTATIONAL GLUCOSE, FASTING Routine 03/06/2023 7:20 AM EDT Glucose intolerance documented in this encounter Results * (ABNORMAL) 100-G GESTATIONAL GLUCOSE, 1 HOUR (03/06/2023 8:25 AM EDT) 100-g Gestational Glucose, 1 Hour 181(H) 70 - 179 mg/dL 03/06/2023 9:43 AM EDT [facility] Blood Venous blood specimen / Unknown Venipuncture / Unknown 03/06/2023 8:25 AM EDT 03/06/2023 8:26 AM EDT Diann [facility] LAB BLOOD O RDERABLES [facility] [place] [facility] [address] [place] [address] * 100-G GESTATIONAL GLUCOSE, FASTING (03/06/2023 7:20 AM EDT) 100-g Gestational Glucose, Fasting 89 70 - 94 mg/dL 03/06/2023 9:12 AM EDT [facility] Blood Venous blood specimen / Unknown Venipuncture / Unknown 03/06/2023 7:20 AM EDT 03/06/2023 7:21 AM EDT Narrative [facility] - 03/06/2023 9:12 AM EDT Based on ACOG guideline, gestational diabetes mellitus is diagnosed when any of the following is met: Fasting is greater than or equal to 95 mg/dL 1 hour is greater than or equal to 180 mg/dL 2 hour is greater than or equal to 155 mg/dL 3 hour is greater than or equal to 140 mg/dL Diann [facility] LAB BLOOD O RDERABLES [facility] [place] [facility] [place] [address] documented in this encounter Visit Diagnoses Diagnosis Glucose intolerance documented in this encounter Care Teams Customer Experience Retail Clerk Relationship Specialty Start Date End Date Jethro Stevens DO [address] [place] [address] PCP - General Family Medicine 02/18/21 documented as of this encounter
--- OUTSIDE RECORDS SUMMARY | 2023-08-25 07:34 | External Medical Summary | Summary of Care ---
Author Name Unknown Organization [facility] Address [address] [facility] [place] [address] Phone [phone] Care Team Providers Care Surface Lay Out Technician Name Role Phone Negro Stevensr Reji Primary Care Provider Reason for Visit * Reason Onset Date Comments Test Results 02/27/2023 Encounter Details Date Type Department Care Team Description 02/27/2023 Telephone Gynecology/Obstetrics [facility] [address] [place] [address] Diann Spain CRNP [address] [place] [address] Test Results Allergies Active Allergy Reactions Severity Noted Date Comments Doxycycline 01/27/2023 Pollen 05/29/2013 Peanut Oil 05/29/2013 documented as of this encounter (statuses as of 02/27/2023) Medications Medication Sig Dispensed Refills Start Date [...] as of this encounter (statuses as of 02/27/2023) Active Problems Problem Noted Date Supervision of [...] 02/01/2023 Overview: Diet controlled Family history of [place] (myocardial infarct ion) [...] as of this encounter (statuses as of 02/27/2023) Resolved Problems Problem Noted Date Resolved Date [...] as of this encounter (statuses as of 02/27/2023) Immunizations Name Administration Dates Next Due Seasonal [...] Telephone Encounter - Ban Rhodes LPN - 02/27/2023 2:43 PM EDT Spoke to pt, verified and advised of results in below message. Pt verbalized understanding and was transferred to Tamra for scheduling. * Telephone Encounter - KIRSTEN Fox - 02/27/2023 1:14 PM EDT Elevated 1 hr GTT - please notify pt and have her schedule 3 hr testing. KIRSTEN Reed documented in this encounter Plan of Treatment Upcoming Encounters Date Type Specialty Care Team Description 03/06/2023 Laboratory Laboratory Dino Gibson [facility] [place] [address] 03/27/2023 Office Visit Maternal Medicine Ismael Oglesby DO [address] [place] [address] 03/27/2023 Imaging Radiology 03/28/2023 Office Visit Gynecology Obstetrics Diann Spain CRNP [address] [facility] [address] 06/19/2023 Telemedicine Endocrinology Francis Clark CRNP [address] [place], [place] [id number] Scheduled Orders Name Type Priority Associated Diagnoses Orde r Schedule GESTATIONAL GLUCOSE TOLERANCE, 3 HOUR Lab Routine Glucose intolerance Expected: 02/27/2023 (Approximate), Expires: 02/28/2024 Health Maintenance Due Date Last Done Comments [...] as of this encounter Visit Diagnoses Diagnosis Glucose intolerance- Primary documented in this encounter Care Teams Surface Lay Out Technician Relationship Specialty Start Date End Date Jethro Stevens, [address] [place] [address] PCP - General Family Medicine 02/18/21 documented as of this encounter
--- OUTSIDE RECORDS SUMMARY | 2023-08-25 07:34 | External Medical Summary ---
Author Name Unknown Address Unknown Organization [id number]:[facility] - [address] [place] [address] Laboratory Report Ordering Provider Test Date Status DANYELLE REY 03/06/2023 10:20:24 Final Observation Date Value Abnormality Reference (Units ) Status Glucose [Mass/volume] in Serum or Plasma --3 hours post dose glucose 03/06/2023 10:20:24 82 70-139 (mg/dL) Final Performing Location [facility] 0 - [address] [place] [address]
--- OUTSIDE RECORDS SUMMARY | 2023-08-25 07:34 | External Medical Summary | Summary of Care ---
Author Name Unknown Organization [facility] Address [address] [facility] [place] [address] Phone [phone] Care Team Providers Care Foot Gatherer Name Role Phone RodneyJethrorip Primary Care Provider Reason for Visit * Reason Comments Outpatient Testing Encounter Details Date Type Department Care Team Description 02/02/2023 [facility] [address] [facility] [place] [address] GibsonDino mckeon [facility] [address] [facility] [place] [address] Supervision of high-risk , unspecified trimester; Multigravida of advanced maternal age in first trimester Allergies Active Allergy Reactions Severity Noted Date Comments Doxycycline 01/27/2023 Pollen 05/29/2013 Peanut Oil 05/29/2013 documented as of this encounter (statuses as of 02/02/2023) Medications Medication Sig Dispensed Refills Start Date [...] as of this encounter (statuses as of 02/02/2023) Active Problems Problem Noted Date Supervision of high-risk , unsp ecified trimester 02/01/2023 Obesity in , antepartum 023 Overview: Class 2 Early GTT, growth q4 wks, NSTs 37wks AMA (advanced maternal age) multigravida 35+ 02/01/2023 Hyperthyroidism affecting 01/18 Overview: TSH Results: Lab [...] 02/01/2023 Overview: Diet controlled Family history of [place] (myocardial infarct ion) [...] as of this encounter (statuses as of 02/02/2023) Resolved Problems Problem Noted Date Resolved Date [...] as of this encounter (statuses as of 02/02/2023) Immunizations Name Administration Dates Next Due Seasonal [...] Encounters Date Type Specialty Care Team Description 02/21/2023 Telemedicine Maternal Medicine Sisi Martines CRNP [address] [place] [address] 02/27/2023 Laboratory Laboratory Dino Gibson Pietro [address] [place] [address] 02/27/2023 Office Visit Gynecology Obstetrics Olivia Lawson PA-C [address] [place] [address] 03/27/2023 Office Visit Maternal Medicine Ismael Oglesby DO [address] [place] [address] 03/27/2023 Imaging Radiology 06/19/2023 Telemedicine Endocrinology Francis Clark CRNP [address] [place] [address] Pending Results Name Type Priority Associated Diagnoses Date /Time QNATAL ADVANCED (QUEST) Lab Routine Supervision of high-risk , unspecified trimester Multigravida of advanced maternal age in first trimester 02/02/2023 12:37 PM EDT Health Maintenance Due Date Last Done Comments COVID-19 Vaccine (#1) 03/05/1986 Pneumococcal Vaccine: Pediatrics (0 to 5 Years) and At-Risk Patients (6 to 64 Years) (1 - PCV) 1991 PAP SMEAR-EVERY 3 YRS,AGES 21-65 2006 Depression Screening, Annual for Pts 12 and Over 09/23/2021 09/23/2020 Influenza Vaccine (FLU shot) (#1) 2022 09/23/2020, 08/09/2016, 08/08/2013 *SPIROMETRY ONCE FOR ASTHMA-ADULT 10/13/2022 Diabetes Screening 04/08/2025 04/08/2022, 0 06/19/2021, 06/19/2021, Additional history exists DTaP,Tdap,and Td Vaccines (7 - Td or Tdap) 10/31/2026 10/31/2016, 07/04/1997, 01/24/1991, Additional history exists Hepatitis B Completed 02/25/1997, [...] this encounter Visit Diagnoses Diagnosis Supervision of high-risk , unspecified trimester Multigravida of advanced maternal age in first trimester documented in this encounter Care Teams Foot Gatherer Relationship Specialty Start Date End Date Jethro Stevens, [address] [place] [address] PCP - General Family Medicine 02/18/21 documented as of this encounter
--- OUTSIDE RECORDS SUMMARY | 2023-08-25 07:34 | External Medical Summary | Summary of Care ---
Author Name Unknown Organization [facility] Address [address] [facility] [address] Phone [phone] Care Team Providers Care Claims Agent Right Of Way Name Role Phone Mendoza Stevensvor Reji Primary Care Provider Reason for Visit * Reason Onset Date Comments Forms Request 03/14/2023 Encounter Details Date Type Department Care Team Description 03/14/2023 Telephone Gynecology/Obstetrics [facility] [address] [place], [place] [id number] Olivia Lawson PA-C [address] [place] [address] Forms Request Allergies Active Allergy Reactions Severity Noted Date Comments Doxycycline 01/27/2023 Pollen 05/29/2013 Peanut Oil 05/29/2013 documented as of this encounter (statuses as of 03/14/2023) Medications Medication Sig Dispensed Refills Start Date [...] Active Promethazine HCl 25 MG Oral Tablet (Phenergan)Indicati ons:History of nausea and vomiting Take 0.5 Tablets by mouth every 8 hours as needed for Nausea. or vomiting 12 Tablet 0 01/02/2023 Active Additional Information Patient not taking.Reported on 01/27/2023 28-0.8 MG Oral Tablet Take by mouth. 0 Active [employer] Verio Flex System w/Device KitIndications:Gest ational diabetes mellitus (GDM), antepartum, gestational diabetes method of control unspecified Use as directed. Check blood sugars 4x/day 1 Kit 0 03/06/2023 Active [employer] UKTouch Verio In Vitro Strip (Glucose Blood)Indications:G estational diabetes mellitus (GDM), antepartum, gestational diabetes method of control unspecified Check blood sugars 4x/day 100 Strip 6 03/06/2023 Active [employer] Delica Lancets 33GIndications:Gest ational diabetes mellitus (GDM), antepartum, gestational diabetes method of control unspecified Check blood sugar 4x/day 100 Each 6 03/06/2023 Active documented as of this encounter (statuses as of 03/14/2023) Active Problems Problem Noted Date GDM (gestational diabetes mellitus) 02/18 Supervision of high-risk , unsp ecified trimester [...] complicating 0 02/01/2023 Overview: R/t allergies, seasonal Family history of [place] (myocardial infarct ion) [...] as of this encounter (statuses as of 03/14/2023) Resolved Problems Problem Noted Date Resolved Date [...] as of this encounter (statuses as of 03/14/2023) Immunizations Name Administration Dates Next Due Seasonal [...] Miscellaneous Notes * Telephone Encounter - EDE Aponte - 03/14/2023 1:10 PM EDT Forms for [employer] 'verification for disability' have been filled out and faxed. Olivia attached letter oflimitations for . Forms scanned to chart. Pt can lease picker in triage. documented in this encounter Plan of Treatment Upcoming Encounters Date Type Specialty Care Team Description 03/20/2023 Telemedicine Maternal Medicine Sisi Martines CRNP [address] [place] [address] 03/27/2023 Office Visit Maternal Medicine Ismael Oglesby DO [address] [place] [address] 03/27/2023 Imaging Radiology 03/28/2023 Office Visit Gynecology Obstetrics Diann Spain CRNP [address] [place] [address] 06/19/2023 Telemedicine Endocrinology Francis Clark CRNP [address] [place], [place] [id number] Health Maintenance Due Date Last Done Comments [...] filedocumented as of this encounter Care Teams Claims Agent Right Of Way Relationship Specialty Start Date End Date Jethro Stevens DO [address] [place] [address] PCP - General Family Medicine 02/18/21 documented as of this encounter
--- OUTSIDE RECORDS SUMMARY | 2023-08-25 07:34 | External Medical Summary ---
Author Name Unknown Address Unknown Organization [id number]:[facility]-[address] - [address] [place] [address] Laboratory Report Ordering Provider Test Date Status CANDIDOBACKER 03/06/2023 07:20:31 Final Observation Date Value Abnormality Reference (Units ) Status Glucose, fasting 03/06/2023 07:20:31 89 70- 94 (mg/dL) Final Performing Location [facility] 0 - [address] [place] [address]
--- OUTSIDE RECORDS SUMMARY | 2023-08-25 07:34 | External Medical Summary ---
Author Name Unknown Address Unknown Organization K01:LABORATORY [facility] - [address] [facility] [address] [facility] [address] Laboratory Report Ordering Provider Test Date Status MAGALY ESCAMILLA 02/27/2023 12:25:35 Final Observation Date Value Abnormality Reference (Units ) Status TSH 02/27/2023 12:25:35 0.48 0.27-4.20 (uIU/mL) Final Performing Location LABORATORY [facility] - [address] [place] [address]
--- OUTSIDE RECORDS SUMMARY | 2023-08-25 07:34 | External Medical Summary ---
Author Name Unknown Address Unknown Organization [id number]:[facility]ATORY [facility] - [address] [place] [address] Laboratory Report Ordering Provider Test Date Status DANYELLE REY 03/06/2023 09:22:30 Final Observation Date Value Abnormality Reference (Units ) Status Glucose, 2-hr post glucose challenge 03/06/2023 09:22:30 177 Above high normal 70-154 (mg/dL) Final Performing Location [facility] 0 - [address] [place] [address]
--- OUTSIDE RECORDS SUMMARY | 2023-08-25 07:34 | External Medical Summary | Summary of Care ---
Author Name Unknown Organization [facility] Address [address] [facility] [place] [address] Phone [phone] Care Team Providers Care Learning Support Assistant Name Role Phone Mendoza Stevensvor Reji Primary Care Provider Reason for Visit * Reason Onset Date Comments Encounter Created in Error 02/27/2023 Encounter Details Date Type Department Care Team Description 02/27/2023 Telephone Gynecology/Obstetrics [facility] [address] [place] [address] Olivia Lawson PA-C [address] [place] [address] Encounter Created in Error Allergies Active Allergy Reactions Severity Noted Date [...] 02/01/2023 Overview: Diet controlled Family history of [place] (myocardial infarct ion) [...] Maternal Medicine Ismael Oglesby DO [address] [place] [address] 03/27/2023 Imaging Radiology 03/28/2023 Office Visit Gynecology Obstetrics Backer, KIRSTEN Royal [address] [place] [address] 06/19/2023 Telemedicine Endocrinology Francis Clark CRNP [address] [place] [address] Health Maintenance Due Date Last Done Comments [...] filedocumented as of this encounter Care Teams Learning Support Assistant Relationship Specialty Start Date End Date Jethro Stevens DO [address] [place] [address] PCP - General Family Medicine 02/18/21 documented as of this encounter
--- OUTSIDE RECORDS SUMMARY | 2023-08-25 07:34 | External Medical Summary ---
Author Name Unknown Address Unknown Organization K0G:[facility] [[email or web address]] [address] [place] [address] Laboratory Report Ordering Provider Test Date Status DANYELLE REY 03/06/2023 08:25:20 Final Observation Date Value Abnormality Reference (Units ) Status Glucose [Mass/volume] in Serum or Plasma --1 hour post dose glucose 03/06/2023 08:25:20 181 Above high normal 70-179 (mg/dL) Final Performing Location [facility] [[email or web address]] [address] [address] [place] [address]
--- OUTSIDE RECORDS SUMMARY | 2023-08-25 07:34 | External Medical Summary ---
Author Name Unknown Address Unknown Organization [facility] [address] [address] [place] [address] Laboratory Report Ordering Provider Test Date Status DANYELLE REY 02/27/2023 12:25:35 Final Observation Date Value Abnormality Reference (Units ) Status Glucose [Moles/volume] in Serum or Plasma --1 hour post 50 g glucose PO 02/27/2023 12:25:35 170 Above high normal 70-129 (mg/dL) Final Performing Location [facility] [address] [address] [place] [address]
--- OUTSIDE RECORDS SUMMARY | 2023-08-25 07:34 | External Medical Summary | Summary of Care ---
Author Name Unknown Organization [facility] Address [address] [facility] [place] [address] Phone [phone] Care Team Providers Care State Archivist Name Role Phone Rodney Jethro Floresrip Primary Care Provider Reason for Visit * Reason Comments Return Visit Encounter Details Date Type Department Care Team Description 02/27/2023 Office Visit Gynecology/Obstetrics Opal Gibson [address] [place] [address] Olivia Lawson PA-C [address] [place] [address] Supervision of high-risk , unspecified trimester*; Obesity in , antepartum; Multigravida of advanced maternal age in second trimester; Hyperthyroidism affecting in second trimester; Anxiety during ; Maternal asthma complicating ; History of gestational diabetes in prior , currently Allergies Active Allergy Reactions Severity Noted Date [...] 02/01/2023 Overview: Diet controlled Family history of [place] (myocardial infarct ion) [...] Sign Reading Time Taken Comments Blood Pressure 122/78 02/27/2023 11:27 AM EDT Pulse - - Temperature - - Respiratory Rate - - Oxygen Saturation - - Inhaled Oxygen Concentration - - Weight 93.9 kg (207 lb) 02/27/2023 11:27 AM EDT Height 157.5 cm (5' 2") 02/27/2023 11:27 AM EDT Body Mass Index 37.86 02/27/2023 11:27 AM EDT documented in this encounter Progress Notes * Olivia Lawson PA-C - 02/27/2023 11:59 AM EDT 15w1d Missed MFM consult due to email issue she reports. Agreeable to reschedule, has their number and states will call as soon as she can to schedule. Recommend she do this. Has M ultrasound for anatomyscheduled. Following with Endo for hyperthyroidism. Plans labs with early glucola today. Not on medication. Work concerns: works for [employer] in [place]. 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 States have some pain in lower legs and swelling in lower legs. Typically works 8 hour shift. Struggling to complete they job she reports due to discomfort. Pt reports work told her she could use short term disability if we okay'd it. She states her big concern is due to her history of loss. Standard work restrictions given and pt states work is working with [employer] these. She has stopped lifting a lot of heavy objects. Has not tried compression stockings orbelly band. Discussed with patient that I understand her voiced concerns, but that in itself is not considered disability. We discussed review of job description and advised she reach to HR regarding form to discuss further reasonable accomidations that potentially can be made. She is agreeable. Recommended compression stockings and belly support band. Counseled on MSAFP, pt declines today. Will notify office if she decides on this screening. Asking for work excuse for Monday due to missed work because of pain with . Advised patient will write but in future she needs to contact office and be seen if work missed. RTC in 4 weeks Olivia Lawson PA-C documented in this encounter Nursing Notes * Lakeshia Leung LPN - 02/27/2023 11:32 AM EDT 15w1d Concerns with working. Early GTT today. documented in this encounter Plan of Treatment Upcoming Encounters Date Type Specialty Care Team Description 03/27/2023 Office Visit Maternal Medicine Ismael Oglesby DO [address] [place], [place] [id number] 03/27/2023 Imaging Radiology 03/28/2023 Office Visit Gynecology Obstetrics BackDiann martínez CRNP [address] [facility] [place] [address] 06/19/2023 Telemedicine Endocrinology Francis Clark CRNP [address] [place] [address] Health Maintenance Due Date Last [...] Diagnoses Diagnosis Supervision of high-risk , unspecified trimester- Primary Obesity in , antepartum Obesity complicating , childbirth, or the puerperium, antepartum condition or complication Multigravida of advanced maternal age in second trimester Hyperthyroidism affecting in second trimester Anxiety during Maternal asthma complicating Other current maternal conditions classifiable elsewhere, complicating , childbirth, or the puerperium, unspecified as to episode of care History of gestational diabetes in prior , currently with other poor obstetric history documented in this encounter Care Teams State Archivist Relationship Specialty Start Date End Date Jethro Stevens DO [address] [place] [address] PCP - General Family Medicine 02/18/21 documented as of this encounter
--- OUTSIDE RECORDS SUMMARY | 2023-08-25 07:34 | External Medical Summary | Summary of Care ---
Author Name Unknown Organization [facility] Address [address] [facility] [place] [address] Phone [phone] Care Team Providers Care Qlikview Developer Name Role Phone Mendoza Stevensvor Reji Primary Care Provider Reason for Visit * Reason Onset Date Comments Encounter Created in Error 02/27/2023 Encounter Details Date Type Department Care Team Description 02/27/2023 Telephone Gynecology/Obstetrics [facility] [address] [place] [address] Olivia Lawson PA-C [address] [place] [address] Encounter Created in Error Allergies Active Allergy [...] 02/01/2023 Overview: Diet controlled Family history of [place] (myocardial infarct ion) 02/18/2021 Hyperthyroidism 02/18/2021 Anxiety [...] Maternal Medicine Ismael Oglesby DO [address] [place] [address] 03/27/2023 Imaging Radiology 03/28/2023 Office Visit Gynecology Obstetrics Backer, KIRSTEN Royal [address] [place] [address] 06/19/2023 Telemedicine Endocrinology Francis Clark CRNP [address] [place] [address] Health Maintenance Due Date Last Done Comments [...] filedocumented as of this encounter Care Teams Qlikview Developer Relationship Specialty Start Date End Date Jethro Stevens DO [address] [place] [address] PCP - General Family Medicine 02/18/21 documented as of this encounter
--- OUTSIDE RECORDS SUMMARY | 2023-08-25 07:34 | External Medical Summary | Summary of Care ---
Author Name Unknown Organization [facility] Address [address] [facility] [place] [address] Phone [phone] Care Team Providers Care Mechanical Shop Laborer Name Role Phone Mendoza Stevensvor Reji Primary Care Provider Reason for Visit * Reason Onset Date Comments Encounter Created in Error 02/27/2023 Encounter Details Date Type Department Care Team Description 02/27/2023 Telephone Gynecology/Obstetrics [facility] [address] [place] [address] Olivia Lawson PA-C [address] [place] [address] Encounter Created in Error Allergies Active Allergy Reactions Severity Noted Date Comments Doxycycline 01/27/2023 Pollen 05/29/2013 Peanut Oil 05/29/2013 documented as of this encounter (statuses as of 03/02/2023) Medications Medication Sig Dispensed Refills Start Date [...] as of this encounter (statuses as of 03/02/2023) Active Problems Problem Noted Date Supervision of [...] 02/01/2023 Overview: Diet controlled Family history of [place] (myocardial infarct ion) [...] as of this encounter (statuses as of 03/02/2023) Resolved Problems Problem Noted Date Resolved Date [...] as of this encounter (statuses as of 03/02/2023) Immunizations Name Administration Dates Next Due DT [...] encounter Miscellaneous Notes * Telephone Encounter - Olivia Lawson PA-C - 03/02/2023 12:52 PM EDT Will need note from work on letterhead stating they can not make accommodations requested. She can bring in/fax that note in addition to any paperwork needed through her HR for medical leave/short term disability so I can review and complete. * Telephone Encounter - Chantale Paulino LPN - 03/02/2023 9:19 AM EDT Patient called stating she turned in her medical letter to her job and they are telling her they can not offer accommodations that we requested. In order for to not lose her job she needs to be placed on a medical leave of absence and then she can collect short term disability and have her job held. Will have Olivia review and advise * Telephone Encounter - Olivia Lawson PA-C - 02/27/2023 4:48 PM EDT Addressed in seperate encounter. documented in this encounter Plan of Treatment Upcoming Encounters Date Type Specialty Care Team Description 03/06/2023 Laboratory Laboratory ArthurDino Pietro [address] [place] [address] 03/27/2023 Office Visit Maternal Medicine Ismael Oglesby DO [address] [place] [address] 03/27/2023 Imaging Radiology 03/28/2023 Office Visit Gynecology Obstetrics BackerDiann CRNP [address] [place] [facility] [place] [address] 06/19/2023 Telemedicine Endocrinology Francis Clark CRNP [address] [place] [address] Health Maintenance Due Date Last [...] filedocumented as of this encounter Care Teams Mechanical Shop Laborer Relationship Specialty Start Date End Date Jethro Stevens, [address] [place] [address] PCP - General Family Medicine 02/18/21 documented as of this encounter
--- OUTSIDE RECORDS SUMMARY | 2023-08-25 07:34 | External Medical Summary | Summary of Care ---
Author Name Unknown Organization [facility] Address [address] [facility] [place] [address] Phone [phone] Care Team Providers Care Tearoom Host/Hostess Name Role Phone Mendoza Stevensvor Reji Primary Care Provider Reason for Visit * Reason Onset Date Comments Encounter Created in Error 02/27/2023 Encounter Details Date Type Department Care Team Description 02/27/2023 Telephone Gynecology/Obstetrics [facility] [address] [place] [address] Olivia Lawson PA-C [address] [place] [address] Encounter Created in Error Allergies Active Allergy [...] 02/01/2023 Overview: Diet controlled Family history of [place] (myocardial infarct ion) 02/18/2021 Hyperthyroidism 02/18/2021 Anxiety [...] Encounter - Chantale Paulino LPN - 03/02/2023 1:07 PM EDT Patient will get the paperwork to us. * Telephone Encounter - Olivia Lawson PA-C [...] review and advise * Telephone Encounter - Oliiva Lawson PA-C - 02/27/2023 4:48 PM EDT Addressed in seperate encounter. documented in this encounter Plan of Treatment Upcoming Encounters Date Type Specialty Care Team Description 03/06/2023 Laboratory Laboratory Dino Gibson [address] [place] [facility] [place] [address] 03/27/2023 Office Visit Maternal Medicine Ismael Oglesby, [address] [place] [address] 03/27/2023 Imaging Radiology 03/28/2023 Office Visit Gynecology [facility]stetric[facility]n [facility] [place] [address] 06/19/2023 Telemedicine Endocrinology Francis Clark CRNP [address] [place] [address] Health Maintenance Due Date Last Done Comments [...] filedocumented as of this encounter Care Teams Tearoom Host/Hostess Relationship Specialty Start Date End Date Jethro Stevens DO [address] [place] [address] PCP - General Family Medicine 02/18/21 documented as of this encounter
--- OUTSIDE RECORDS SUMMARY | 2023-08-25 07:34 | External Medical Summary | Summary of Care ---
Author Name Unknown Organization [facility] Address [address] [facility] [place] [address] Phone [phone] Care Team Providers Care Pan Reclaim Processor Name Role Phone Mendoza Stevensvor Reji Primary Care Provider Reason for Visit * Reason Onset Date Comments Encounter Created in Error 02/27/2023 Encounter Details Date Type Department Care Team Description 02/27/2023 Telephone Gynecology/Obstetrics [facility] [address] [place] [address] Olivia Lawson PA-C [address] [place] [address] Encounter Created in Error Allergies Active Allergy [...] 02/01/2023 Overview: Diet controlled Family history of [place] (myocardial infarct ion) 02/18/2021 Hyperthyroidism 02/18/2021 Anxiety [...] Specialty Care Team Description 03/06/2023 Laboratory Laboratory Gibson, Lab Pietro [address] [facility] [place] [address] 03/27/2023 Office Visit Maternal Medicine Ismael Oglesby, DO [address] [facility] [place] [address] 03/27/2023 Imaging Radiology 03/28/2023 Office Visit Gynecology Obstetrics Backer, KIRSTEN Royal [address] [place] [address] 06/19/2023 Telemedicine Endocrinology Francis Clark CRNP [address] [facility] [place] [address] Health Maintenance Due Date Last Done Comments [...] filedocumented as of this encounter Care Teams Pan Reclaim Processor Relationship Specialty Start Date End Date Jethro Stevens DO [address] [place] [address] PCP - General Family Medicine 02/18/21 documented as of this encounter
--- OUTSIDE RECORDS SUMMARY | 2023-08-25 07:34 | External Medical Summary | Summary of Care ---
Author Name Unknown Organization [facility] Address [address] [facility] [place] [address] Phone [phone] Care Team Providers Care Brass And Wind Instrument Repairer Name Role Phone Mendoza Stevensvor Reji Primary Care Provider Reason for Visit * Reason Onset Date Comments Encounter Created in Error 02/27/2023 Encounter Details Date Type Department Care Team Description 02/27/2023 Telephone Gynecology/Obstetrics [facility] [address] [place] [address] Olivia Lawson PA-C [address] [place] [address] Encounter Created in Error Allergies Active Allergy Reactions Severity Noted Date Comments Doxycycline 01/27/2023 Pollen 05/29/2013 Peanut Oil 05/29/2013 documented as of this encounter (statuses as of 03/03/2023) Medications Medication Sig Dispensed Refills Start Date [...] as of this encounter (statuses as of 03/03/2023) Active Problems Problem Noted Date Supervision of [...] 02/01/2023 Overview: Diet controlled Family history of [place] (myocardial infarct ion) 02/18/2021 Hyperthyroidism 02/18/2021 Anxiety 02/18/2021 Graves disease 02/18/2021 Other allergic rhinitis 07/30/2001 Overview: ICD-10 update of inactive term Asthma with severity to be determined Overview: ICD-10 update of inactive term ATTN DEFIC NONHYPERACT 01/24/2000 EXT ASTHMA W-O STAT ASTH Dysmenorrhea Estimated Date of Delivery Comme nts Yes 08/20/2023 Based on Ultraso und documented as of this encounter (statuses as of 03/03/2023) Resolved Problems Problem Noted Date Resolved Date [...] as of this encounter (statuses as of 03/03/2023) Immunizations Name Administration Dates Next Due DT [...] Telephone Encounter - Olivia Lawson PA-C - 03/03/2023 4:32 PM EDT Late entry due to patient care. Call placed earlier this morning around 8 AM. Phone call to patient. Patient stated that HR told her they needed letter from provider stating that she could not work. Discussed with patient restriction letter provided states that if she would like to start request for reasonable accommodations that she reach out to her affirmative action office. The pt states that she did that and all they did was send back her job description. She then stated that work is sayingshe needs letter stating she cannot work. Patient gave permission for us to reach out there rfid specialist on letter provided Marnishantanu Dodd as patient was unsure about needed next steps. 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 Ms. Dodd stated concerns that further restrictionfor weight limits beyond 40 pounds after 20 weeks may be more restricted, but this provider could not find letter provided through this office that stated this. training representative stated that they arenot able to make accommodations based on her job description and that they are not going to be ableto allow her to move. This provider expressed that we are not recommending that she cannot work butthat she may need reasonable accommodations. The training representative stated that an accommodations form can be faxed over for us to fill out, and stated she will have it faxed over today. Given fax number for her to send for us to review and complete. She just expressed concern that they may not be able to find alternative for her. * Telephone Encounter - Chantale Paulino LPN [...] Description 03/06/2023 Laboratory Laboratory Dino Gibson [address] [facility] [place] [address] 03/27/2023 Office Visit Maternal Medicine Ismael Oglesby DO [address] [place] [address] 03/27/2023 Imaging Radiology 03/28/2023 Office Visit Gynecology Obstetrics BackDiann martínez CRNP [address] [place] [address] 06/19/2023 Telemedicine Endocrinology Francis Clark CRNP [address] [place], [place] [address] Health Maintenance Due Date Last Done Comments [...] filedocumented as of this encounter Care Teams Brass And Wind Instrument Repairer Relationship Specialty Start Date End Date Jethro Stevens DO [address] [place] [address] PCP - General Family Medicine 02/18/21 documented as of this encounter
--- OUTSIDE RECORDS SUMMARY | 2023-08-25 07:34 | External Medical Summary | Summary of Care ---
Author Name Unknown Organization [facility] Address [address] [facility] [place] [address] Phone [phone] Care Team Providers Care Calender Machine Operator Helper Name Role Phone Mendoza Stevensvor Reji Primary Care Provider Reason for Visit * Reason Onset Date Comments Encounter Created in Error 02/27/2023 Encounter Details Date Type Department Care Team Description 02/27/2023 Telephone Gynecology/Obstetrics [facility] [address] [place] [address] Olivia Lawson PA-C [address] [place] [address] Encounter Created in Error Allergies Active Allergy [...] 02/01/2023 Overview: Diet controlled Family history of [place] (myocardial infarct ion) [...] 02/27/2023) Immunizations Name Administration Dates Next Due DT [...] Description 03/06/2023 Laboratory Laboratory Dino Gibson [address] [place] [address] 03/27/2023 Office Visit Maternal Medicine Ismael Oglesby DO [address] [place] [address] 03/27/2023 Imaging Radiology 03/28/2023 Office Visit Gynecology Obstetrics BackerDiann CRNP [address] [place] [address] 06/19/2023 Telemedicine Endocrinology Francis Clark CRNP [address] [place] [address] Health Maintenance Due Date Last [...] filedocumented as of this encounter Care Teams Calender Machine Operator Helper Relationship Specialty Start Date End Date Jethro Stevens, [address] [place] [address] PCP - General Family Medicine 02/18/21 documented as of this encounter
--- OUTSIDE RECORDS SUMMARY | 2023-08-25 07:34 | External Medical Summary | Summary of Care ---
Author Name Unknown Organization [facility] Address [address] [facility] [address] Phone [phone] Care Team Providers Care Communicable Disease Specialist Name Role Phone RodneyJethrorip Primary Care Provider Reason for Visit * Reason Comments Outpatient Testing Encounter Details Date Type Department Care Team Description 02/27/2023 [facility] [place] [address] [email or web address] [address] [facility] [address] Obesity in , antepartum; History of gestational diabetes in prior , currently ; Graves disease Allergies Active Allergy Reactions Severity Noted Date [...] 02/01/2023 Overview: Diet controlled Family history of [place] (myocardial infarct ion) 02/18/2021 Hyperthyroidism 02/18/2021 Anxiety [...] Visit Maternal Medicine Ismael Oglesby, [address] [place] [address] 03/27/2023 Imaging Radiology 03/28/2023 Office Visit Gynecology Obstetrics BackDiann martínez CRNP [address] [place] [address] 06/19/2023 Telemedicine Endocrinology Francis Clark CRNP [address] [place] [address] Pending Results Name Type Priority Associated Diagnoses Date /Time 50-G GESTATIONAL GLUCOSE, 1 HOUR Lab Routine Obesity in , antepartum History of gestational diabetes in prior , currently 02/27/2023 12:25 PM EDT TSH WITH FREE T4 IF INDICATED Lab Routine Graves disease 02/27/2023 12:25 PM EDT Health Maintenance Due Date Last [...] encounter Visit Diagnoses Diagnosis Obesity in , antepartum Obesity complicating , childbirth, or the puerperium, antepartum condition or complication History of gestational diabetes in prior , currently with other poor obstetric history Graves disease Toxic diffuse goiter without mention of thyrotoxic crisis or storm documented in this encounter Care Teams Communicable Disease Specialist Relationship Specialty Start Date End Date Jethro Stevens DO [address] [place] [address] PCP - General Family Medicine 02/18/21 documented as of this encounter
--- OUTSIDE RECORDS SUMMARY | 2023-08-25 07:34 | External Medical Summary | Summary of Care ---
Author Name Unknown Organization [facility] Address [address] [facility] [place] [address] Phone [phone] Care Team Providers Care Mining Manager Name Role Phone StevensJethrorip Primary Care Provider Reason for Referral * Evaluate & Treat - Unlimited Visits (Within 10 days (routine)) - Pending Review Specialty Diagnoses / Procedures Referred By Sharlene rivera Referred To Contact Steel Worker / Nutrition Services Diagnoses Gestational diabetes mellitus (GDM), antepartum, gestational diabetes method of control unspecified Diann Spain CRNP [address] [place] [address] Referral ID Status Reason Start Date Expiration Date Visits Requested Visits Authorized [id number] Pending Review Specialty Services Required 03/06/[phone] Question Answer Is the patient ? Yes Referral Priority Within 10 days (routine) Comments This referral is for Diabetes Self-Management Training (DSMT) by a recognized [place] [employer] Association (ADA) family life educator: Nurse (RN), Registered Dietitian [employer] (RDN), and/or Diabetes Medical Nutrition Therapy (MNT) Management (dietitian only). Diabetes educators are responsible for assessing the participant's diabetes education needs, and providing diabetes self-management training in accordance with the standards set by the ADA for DSMT. Any adjustment in diabetes therapy will be made within the guidelines of standards of practice and [employer] approved policies and procedures. I understand that the family life educator will keep me informed. Areas of Education: Pathophysiology Nutrition Physical Activity Medications Monitoring Acute Complications Chronic Complications Psychosocial Management Promote Health/Behavior Change Participant will be offered 1:1 education training if there is a lack of classes available within 2 months. Providers can also order 1:1 training if indicated for participant for the following reasons: 1:1 Training for Insulin Initiation Participant Inappropriate for Class Setting By my electronic signature, I understand that my patient will be offered the comprehensive ADA content area above unless deemed not appropriate of I specify otherwise here: * Evaluate & Treat - Unlimited Visits (Within 10 days (routine)) - Pending Review Specialty Diagnoses / Procedures Referred By Sharlene rivera Referred To Contact Obstetrics/Gynecology / Maternal Medicine Diagnoses Gestational diabetes mellitus (GDM), antepartum, gestational diabetes method of control unspecified Diann Spain CRNP [address] [place] [address] Referral ID Status Reason Start Date Expiration Date Visits Requested Visits Authorized [id number] Pending Review Specialty Services Required 03/06/[phone] Question Answer Referral Priority Within 10 days (routine) Indications for Referral Other - Please Comment Other already established with MFM, but new GDM diagnosis in 1st trimester Comments /Para: LMP: No LMP recorded. Patient is . EDC: unknown Pre-Gravid BMI: 37.30 Reason for Visit * Reason Onset Date Comments Test Results 03/06/2023 Encounter Details Date Type Department Care Team Description 03/06/2023 Telephone Gynecology/Obstetrics Opal Gibson [address] [place] [address] Diann Spain CRNP [address] [place] [address] Test Results Allergies Active Allergy Reactions Severity [...] Oral Tablet Take by mouth. 0 Active BitPassio Flex System w/Device KitIndications:Gest ational diabetes mellitus (GDM), antepartum, gestational diabetes method of control unspecified Use as directed. Check blood sugars 4x/day 1 Kit 0 03/06/2023 Active BitPassio In Vitro Strip (Glucose Blood)Indications:G estational diabetes mellitus (GDM), antepartum, gestational diabetes method of control unspecified Check blood sugars 4x/day 100 Strip 6 03/06/2023 Active DraftDayuch Delica Lancets 33GIndications:Gest ational diabetes mellitus (GDM), antepartum, gestational diabetes method of control unspecified Check blood sugar 4x/day 100 Each 6 03/06/2023 Active documented as of this encounter (statuses as of 03/06/2023) Active Problems Problem Noted Date GDM (gestational [...] Overview: R/t allergies, seasonal Family history of [place] (myocardial infarct ion) [...] Telephone Encounter - Renay Hare RN - 03/06/2023 2:11 PM EDT Patient called and made aware of message below. Patient verbalized understanding to all. Agreeable to start testing glucose. Had no further questions at this time. * Telephone Encounter - KIRSTEN Fox - 03/06/2023 10:58 AM EDT 2 elevated glucose readings, which diagnoses diabetes in . If comfortable, can start checking blood sugars 4x/day. Morning fasting should be less than 95; test after 8-10 hour fast (do not go more than 12 hrs without eating). 1 hr after start of each meal (breakfast, lunch, dinner) with goal under 140. I will send testing supplies to the pharmacy. Maternal Medicine's team of nurse practitioners will manage her blood sugars. I will place a referral to them; they will contact her to schedule a video visit to go over GDM. Also sending a referral to childcare aide. KIRSTEN Reed documented in this encounter Plan of Treatment Upcoming Encounters Date Type Specialty Care Team Description 03/27/2023 Office Visit Maternal Medicine Ismael Oglesby DO [address] [place] [address] 03/27/2023 Imaging Radiology 03/28/2023 Office Visit Gynecology Obstetrics Diann Spain CRNP [address] [place] [address] 06/19/2023 Telemedicine Endocrinology Francis Clark CRNP [address] [place] [address] Scheduled Referrals Name Type Priority Associated Diagnoses Orde r Schedule MATERNAL MEDICINE REFERRAL OP Referral Within 10 days (routine) Gestational diabetes mellitus (GDM), antepartum, gestational diabetes method of control unspecified Ordered: 03/06/2023 DIABETES MANAGEMENT EDUCATION (ADA) REFERRAL Referral Within [...] gestational diabetes method of control unspecified- Primary documented in this encounter Care Teams Mining Manager Relationship Specialty Start Date End Date Jethro Stevens DO [address] [place] [address] PCP - General Family Medicine 02/18/21 documented as of this encounter
--- OUTSIDE RECORDS SUMMARY | 2023-08-25 07:35 | External Medical Summary ---
Author Name Unknown Address Unknown Organization [id number]:LABORATORY [facility] [place] - [facility] [address] [place] [address] Laboratory Report Ordering Provider Test Date Status DANYELLE REY 02/01/2023 10:01:14 Final Observation Date Value Abnormality Reference (Units ) Status HIV 1+2 Ab+HIV1 p24 Ag [Presence] in Serum or Plasma by Immunoassay 02/01/2023 10:01:14 Negative Negative Final Performing Location LABORATORY [facility] [place] - [address] [place] [address]
--- OUTSIDE RECORDS SUMMARY | 2023-08-25 07:35 | External Medical Summary ---
Author Name Unknown Address Unknown Organization [id number]:[facility] [place] - [facility] [address] [place] [address] Laboratory Report Ordering Provider Test Date Status DANYELLE REY 02/01/2023 09:43:00 Final Observation Date Value Abnormality Reference (Units ) Status Human papilloma virus E6+E7 mRNA [Presence] in Cervix by SHRAVAN with probe detection 02/01/2023 09:43:00 Negative Not Applicable Final Performing Location LABORATORY [facility] - [address] [place] [address]
--- OUTSIDE RECORDS SUMMARY | 2023-08-25 07:35 | External Medical Summary | Summary of Care ---
Author Name Unknown Organization [facility] Address [address] [facility] [place] [address] Phone [phone] Care Team Providers Care Director Of Acquisitions Name Role Phone Mendoza Stevensvor Reji Primary Care Provider Encounter Details Date Type Department Care Team Description 01/26/2023 Nurse Only Gynecology/Obstetrics [facility] [address] [facility] [place] [address] , Nurse Director Of Graduate Medical Education [facility] [address] [place] [address] No Show Allergies Active Allergy Reactions Severity Noted Date Comments Doxycycline 01/27/2023 Pollen 05/29/2013 Peanut Oil 05/29/2013 documented as of this encounter (statuses as of 01/27/2023) Medications Medication Sig Dispensed Refills Start Date End Date Status IBUPROFEN 600 MG PO TABS None Entered 0 Active SUMATRIPTAN SUCCINATE 50 MG PO TABSIndications:Migr panda with intractable migraine 1 TABLET 1 TIME ONLY,REPEAT AFTER 2 HR NEEDED 30 Tab 3 11/12/2013 Active Additional Information Patient not taking.Reported on 01/27/2023 hydrOXYzine HCl 50 MG Oral TabletIndications:An xiety TAKE ONE TABLET BY MOUTH EVERY 6 HOURS NEEDED FOR ANXIETY 40 Tablet 3 10/29/2021 Active Additional Information Patient not taking.Reported on 01/27/2023 Albuterol Sulfate HFA 108 (90 Base) MCG/ACT Inhalation Aerosol Solution Inhale 2 Puffs by mouth every 4 hours as needed for Cough, Shortness of Breath or Wheezing. 18 g 3 11/26/2021 Active methIMAzole 5 MG Oral Tablet (Tapazole)Indication s:Graves disease TAKE ONE TABLET BY MOUTH EVERY DAY 30 Tablet 5 04/25/2022 Active Additional Information Patient not taking.Reported on 01/27/2023 FLUoxetine HCl 40 MG Oral Capsule (PROzac) Take by mouth 1 Capsule in the morning. 30 Capsule 11 07/26/2022 Active Propranolol HCl 10 MG Oral Tablet (Inderal)Indications :Anxiety,Graves disease,Hyperthyroid ism TAKE ONE TABLET BY MOUTH TWICE A DAY (MORNING AND BEFORE BEDTIME) 60 Tablet 5 12/28/2022 Active Additional Information Patient not taking.Reported on 01/27/2023 Trulicity 0.75 MG/0.5ML Subcutaneous Solution Pen-injector (Dulaglutide)Indicat ions:Insulin resistance Inject 0.75 mg under the skin once a week. 3 mL 6 12/30/2022 Active Additional Information Patient not taking.Reported on 01/27/2023 Loratadine 10 MG Oral Tablet (Claritin) Take 1 Tablet by mouth in the morning. 30 Tablet 0 12/31/2022 Active Additional Information Patient not taking.Reported on 01/27/2023 Promethazine HCl 25 MG Oral Tablet (Phenergan)Indicatio ns:History of nausea and vomiting Take 0.5 Tablets by mouth every 8 hours as needed for Nausea. or vomiting 12 Tablet 0 01/02/2023 Active Additional Information Patient not taking.Reported on 01/27/2023 Ondansetron 4 MG Oral Tablet Disintegrating (Zofran) Place 1 Tablet on tongue every 8 hours as needed for Nausea. dissolve on tongue. 30 Tablet 1 01/11/2023 Active Additional Information Patient not taking.Reported on 01/27/2023 documented as of this encounter (statuses as of 01/27/2023) Active Problems Problem Noted Date Family history of [place] (myocardial infarct ion) 02/18/2021 Hyperthyroidism 02/18/2021 Anxiety 02/18/2021 Graves disease 02/18/2021 Other allergic rhinitis 07/30/2001 Overview: ICD-10 update of inactive term Asthma with severity to be determined Overview: ICD-10 update of inactive term ATTN DEFIC NONHYPERACT 01/24/2000 EXT ASTHMA W-O STAT ASTH Dysmenorrhea Comments Yes documented as of this encounter (statuses as of 01/27/2023) Resolved Problems Problem Noted Date Resolved Date Encounter for supervision of other normal pregna [...] as of this encounter (statuses as of 01/27/2023) Immunizations Name Administration Dates Next Due Seasonal [...] money to get more. Never true 01/26/2023 Comments Yes Sex Assigned at Date Recorded Female 01/26/2023 1:[address] Job Start Date Occupation Industry Not on file Not on file Not on file documented as of this encounter Plan of Treatment Upcoming Encounters Date Type Specialty Care Team Description 02/01/2023 Imaging Radiology 02/01/2023 Office Visit Gynecology Obstetrics Backer, KIRSTEN Royal [address] [place] [address] 03/09/2023 Telemedicine Endocrinology [facility] Clark [facility] [address] [facility] [address] Health Maintenance Due Date Last Done Comments COVID-19 Vaccine (#1) 03/05/1986 Pneumococcal Vaccine: Pediatrics (0 to 5 Years) and At-Risk Patients (6 to 64 Years) (1 - PCV) 1991 Hepatitis C Screening 2003 PAP SMEAR-EVERY 3 YRS,AGES 21-65 2006 Depression Screening, Annual for Pts 12 and Over 09/23/2021 09/23/2020 Influenza Vaccine (FLU shot) (#1) 2022 09/23/2020, 08/09/2016, 08/08/2013 *SPIROMETRY ONCE FOR ASTHMA-ADULT 10/13/2022 Diabetes Screening 04/08/2025 04/08/2022, 0 06/19/2021, 06/19/2021, Additional history exists DTaP,Tdap,and Td Vaccines (7 - Td or Tdap) 10/31/2026 10/31/2016, 07/04/1997, 01/24/1991, Additional history exists Hepatitis B Completed 02/25/1997, 08/21, 07/02/1996 GARDASIL-HPV IMMUNIZATION SERIES Aged Out No longer eligible based on patient's age to complete this topic MENINGOCOCCAL (MENACTRA/MENVEO) Aged Out No longer eligible based on patient's age to complete this topic documented as of this encounter Medical Devices Not on filedocumented as of this encounter Care Teams Director Of Acquisitions Relationship Specialty Start Date End Date Jethro Stevens DO [address] [facility] [place] [address] PCP - General Family Medicine 02/18/21 documented as of this encounter
--- OUTSIDE RECORDS SUMMARY | 2023-08-25 07:35 | External Medical Summary ---
Author Name Unknown Address Unknown Organization [id number]:[facility] [place] [facility] [address] [place] [address] Laboratory Report Ordering Provider Test Date Status CANDIDOBACKER 02/01/2023 10:01:14 Final Observation Date Value Abnormality Reference (Units ) Status SYNC LEUKOCYTES IN BLOOD BY AUTOMATED COUNT 02/01/2023 10:01:14 10.13 4.00-10.80 (K/uL) Final Segs 02/01/2023 10:01:14 69.9 40.0-75.0 (%) Final Lymphs % 02/01/2023 10:01:14 19.8 18.0-42.0 (%) Final Monos 02/01/2023 10:01:14 5.3 1.0-11.0 (%) Final Eosinophils 02/01/2023 10:01:14 4.1 0.0-6.0 (%) Final Basos 02/01/2023 10:01:14 0.6 0.0-2.0 (%) Final Immature Granulocyte, Percent 02/01/2023 10:01:14 0.3 0.0-2.0 (%) Final Absolute Segs 02/01/2023 10:01:14 7.07 1.80-7.70 (K/uL) Final Lymphs, absolute 02/01/2023 10:01:14 2.01 1.00-4.80 (K/ul) Final Monos, Abs 02/01/2023 10:01:14 0.54 0.00-1.10 (K/uL) Final Eos, Abs 02/01/2023 10:01:14 0.42 0.00-0.70 (K/uL) Final Basos, Abs 02/01/2023 10:01:14 0.06 0.00-0.20 (K/uL) Final Immature Granulocytes, Number 02/01/2023 10:01:14 0.03 0.00-0.20 (K/uL) Final Performing Location LAB[facility]ATORY [facility] - [address] [facility] [address]
--- OUTSIDE RECORDS SUMMARY | 2023-08-25 07:35 | External Medical Summary ---
Author Name Unknown Address Unknown Organization K01:[facility]ATORY [facility] - [address] [facility] [place] [address] Laboratory Report Ordering Provider Test Date Status DANYELLE REY 02/01/2023 10:01:14 Final Observation Date Value Abnormality Reference (Units ) Status Hep B surface Ag 02/01/2023 10:01:14 Negative Neg ative Final Performing Location [facility] - [address] [place] [address]
--- OUTSIDE RECORDS SUMMARY | 2023-08-25 07:35 | External Medical Summary | Summary of Care ---
Author Name Unknown Organization [facility] Address [address] [facility] [place] [address] Phone [phone] Care Team Providers Care Dental Appliance Mechanic Name Role Phone Jethro Stevens DO Primary Care Provider Reason for Visit * Reason Onset Date Comments Excuse for Absence 01/27/2023 Encounter Details Date Type Department Care Team Description 01/27/2023 Telephone Family Practice [facility] [address] [place] [address] Jethro Stevens DO [address] [facility] [place] [address] Excuse for Absence Allergies Active Allergy Reactions Severity Noted Date Comments Doxycycline 01/27/2023 Pollen 05/29/2013 Peanut Oil 05/29/2013 documented as of this encounter (statuses as of 02/01/2023) Medications Medication Sig Dispensed Refills Start Date [...] Additional Information Patient not taking.Reported on 01/27/2023 IBUPROFEN 600 MG PO TABS None Entered 0 3 Discontinu ed(Medicat ion List Clean Up) SUMATRIPTAN SUCCINATE 50 MG PO TABSIndications:Junior cid with intractable migraine 1 TABLET 1 TIME ONLY,REPEAT AFTER 2 HR NEEDED 30 Tab 3 11/12/2013 3 Discontinu ed(Medicat ion List Clean Up) hydrOXYzine HCl 50 MG Oral TabletIndications:A nxiety TAKE ONE TABLET BY MOUTH EVERY 6 HOURS NEEDED FOR ANXIETY 40 Tablet 3 10/29/2021 3 Discontinu ed(Medicat ion List Clean Up) methIMAzole 5 MG Oral Tablet (Tapazole)Indicatio ns:Graves disease TAKE ONE TABLET BY MOUTH EVERY DAY 30 Tablet 5 04/25/2022 3 Discontinu ed(Medicat ion List Clean Up) Propranolol HCl 10 MG Oral Tablet (Inderal)Indication s:Anxiety,Graves disease,Hyperthyroi dism TAKE ONE TABLET BY MOUTH TWICE A DAY (MORNING AND BEFORE BEDTIME) 60 Tablet 5 12/28/2022 3 Discontinu ed(Medicat ion List Clean Up) Trulicity 0.75 MG/0.5ML Subcutaneous Solution Pen-injector (Dulaglutide)Indica tions:Insulin resistance Inject 0.75 mg under the skin once a week. 3 mL 6 12/30/2022 3 Discontinu ed(Medicat ion List Clean Up) Loratadine 10 MG Oral Tablet (Claritin) Take 1 Tablet by mouth in the morning. 30 Tablet 0 12/31/2022 3 Discontinu ed(Medicat ion List Clean Up) Ondansetron 4 MG Oral Tablet Disintegrating (Zofran) Place 1 Tablet on tongue every 8 hours as needed for Nausea. dissolve on tongue. 30 Tablet 1 01/11/2023 3 Discontinu ed(Medicat ion List Clean Up) documented as of this encounter (statuses as of 02/01/2023) Active Problems Problem Noted Date Supervision of high-risk , unsp ecified trimester 02/01/2023 Obesity in , antepartum 023 Overview: Class 2 Early GTT, growth q4 wks, NSTs 37wks AMA (advanced maternal age) multigravida 35+ 02/01/2023 Hyperthyroidism affecting 01/18 Overview: TSH Results: Lab Results Component Value Date/Time TSH - [facility] 2.07 12/01/2022 06:55 AM TSH - [facility] 2.12 09/16/2022 07:33 AM TSH - [facility] 1.54 05/13/2022 12:23 PM TSH - [facility] 0.01 (A) 01/20/2021 12:00 AM TSH - [facility] <0.01 (A) 12/16/2020 12:00 AM TSH - [facility] 0.01 (A) 12/11/2020 12:00 AM Anxiety during 02/01/2023 Overview: Prozac Maternal asthma complicating 0 02/01/2023 Overview: R/t allergies, seasonal History of gestational diabetes in prior , currently 02/01/2023 Overview: Diet controlled Family history of [place] (myocardial infarct ion) [...] as of this encounter (statuses as of 02/01/2023) Resolved Problems Problem Noted Date Resolved Date [...] as of this encounter (statuses as of 02/01/2023) Immunizations Name Administration Dates Next Due DT [...] as of this encounter Miscellaneous Notes * Addendum Note - Janeth Garza LPN - 02/01/2023 2:11 PM EDTAddended by: JANETH GARZA on: 02/01/2023 02:11 PM Modules accepted: Orders * Telephone Encounter - Jethro Stevens DO - 01/31/2023 5:01 PM EDT Signed - ok for nurse to sign - thank you * Telephone Encounter - Daria Zimmerman LPN - 01/31/2023 1:08 PM EDT Work note pended, please sign if approve. 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 Contacted pt who states she did not work on Saturday 01/27, Sat 01/28 and today 01/31 due to not feelingwell due to mental health issue. Pt is to return to work tomorrow. States she had previous FMLA for mental health concern if needed over miss day(s) for work. Pt states she is doing okay now. Pt states she is approx 11 weeks . Pt has stopped Trulicity, but continues the Prozac 40 mg gel-cap daily as prescribed. Pt not takingany other medications. Pt asking if she can continue the Prozac while . Pt states she can also ask OB tomorrow appt. Pt has ultrasound and appt tomorrow with OB/YN. * Telephone Encounter - EDE Gooden - 01/27/2023 3:16 PM EST Patient calling in to check on the status of previous message. * Telephone Encounter - EDE Castanon - 01/27/2023 11:40 AM EST School or Work Note?: work Has patient been seen for the current issue? Yes If yes patient has been seen for the current issue, list issue/symptoms anxiety /depression causingmissed work/school (Call Details not required): If no patient has not been seen for the current issue, complete Call Details. Dates Missed: 01/27/2023 Date Returnin Note will be faxed or picked up?: [phone] Fax number or phone number to call when note is completed: [phone] documented in this encounter Plan of Treatment Upcoming Encounters Date Type Specialty Care Team Description 02/27/2023 Laboratory Laboratory Dino Gibson [address] [place] [address] 02/27/2023 Office Visit Gynecology Obstetrics Olivia Lawson PA-C [address] [facility] [place] [address] 06/19/2023 Telemedicine Endocrinology Francis Clark CR[facility] [address] [facility] [id number] Health Maintenance Due Date Last Done Comments [...] as of this encounter Visit Diagnoses Diagnosis Anxiety- Primary Anxiety state, unspecified documented in this encounter Care Teams Dental Appliance Mechanic Relationship Specialty Start Date End Date Jethro Stevens DO [address] [facility] [place] [address] PCP - General Family Medicine 02/18/21 documented as of this encounter
--- OUTSIDE RECORDS SUMMARY | 2023-08-25 07:35 | External Medical Summary ---
Author Name Unknown Address Unknown Organization K01:LAB[facility]ATORY [facility] [place] - [address] [address] [place] [address] Laboratory Report Ordering Provider Test Date Status CANDIDO,DANYELLE 02/01/2023 09:43:30 Final Observation Date Value Abnormality Reference (Units) Status Bacteria identified in Unspecified specimen by Culture 02/01/2023 09:43:30 No significant growth Final Performing Location [facility] - [address] [place] [address]
--- OUTSIDE RECORDS SUMMARY | 2023-08-25 07:35 | External Medical Summary | Summary of Care ---
Author Name Unknown Organization [facility] Address [address] [facility] [place] [address] Phone [phone] Care Team Providers Care Bi Data Architect Name Role Phone Mendoza Stevensvor Reji Primary Care Provider Reason for Visit * Reason Onset Date Comments Medication Question 01/10/2023 Encounter Details Date Type Department Care Team Description 01/10/2023 Telephone Gynecology/Obstetrics [facility] [address] [place] [address] Diann Spain CRNP [address] [place] [address] Medication Question Allergies Active Allergy Reactions Severity Noted Date [...] 02/01/2023 Overview: Diet controlled Family history of [place] (myocardial infarct ion) 02/18/2021 Hyperthyroidism 02/18/2021 Anxiety 02/18/2021 Graves disease 02/18/2021 Other allergic rhinitis 07/30/2001 Overview: ICD-10 update of inactive term Asthma with severity to be determined Overview: ICD-10 update of inactive term ATTN DEFIC NONHYPERACT 01/24/2000 EXT ASTHMA W-O STAT ASTH Dysmenorrhea documented as of this encounter (statuses as [...] 02/02/2023) Immunizations Name Administration Dates Next Due DT [...] money to get more. Never true 01/26/2023 Sex Assigned at Date Recorded Female 01/26/2023 1:[address] Job Start Date Occupation Industry Not on file Not on file Not on file documented as of this encounter Miscellaneous Notes * Addendum Note - Chantale Paulino LPN - 02/02/2023 8:52 AM EDTAddended by: CHANTALE PAULINO on: 02/02/2023 08:52 AM Modules accepted: Orders * Telephone Encounter - Chantale Paulino LPN - 02/02/2023 8:51 AM EDT Pt would like to do qnatal testing * Telephone Encounter - Anna Fields LPN - 01/13/2023 8:46 AM EST Pt is requesting a work retriction letter. I printed letter and spoke with pt she said she will picker in office if not able to make it here by 5 she will call us and have us fax letter. * Telephone Encounter - KIRSTEN Fox - 01/11/2023 3:32 PM EST Rx sent. KIRSTEN Reed * Telephone Encounter - Renay Hare RN - 01/11/2023 1:33 PM EST Per ER records patient was prescribed Zofran dissolving tablets 4mg Q4-6 hours PRN. Patient uses [facility] in [place] . * Telephone Encounter - KIRSTEN Fox - 01/11/2023 1:13 PM EST I will send a prescription, but I need to know what dose she was prescribed and where to send it. KIRSTEN Reed * Telephone Encounter - Renay Hare RN - 01/11/2023 1:09 PM EST Please see most recent my G message from patient. Requesting zofran prescription. Patient has not had NOB visit yet. ER visit notes in chart from 01/09/23. Pt had US there and showing 8w2d. Please advise if wiling to send medication at this time. Will then confirm pharmacy. * Telephone Encounter - KIRSTEN Fox - 01/10/2023 1:25 PM EST She should continue prozac and methimazole. Should NOT take doxycycline or sumatriptan/ibuprofen inpregnancy. If not taking inderal for hypertension, recommend d/c'ing is possible. KIRSTEN Reed * Telephone Encounter - Chantale Paulino LPN - 01/10/2023 1:21 PM EST Patient would like to know if she should continue her Prozac. Her [facility] visit is a month out. * Telephone Encounter - EDE Turcios - 01/10/2023 1:05 PM EST Pt called in she is 8 weeks & would like to know if she can still keep taking a certain med while , please call pt. documented in this encounter Plan of Treatment Upcoming Encounters Date Type Specialty Care Team Description 02/21/2023 Telemedicine Maternal Medicine Sisi Martines CRNP [address] [place] [address] 02/27/2023 Laboratory Laboratory Dino Gibson [address] [place] [address] 02/27/2023 Office Visit Gynecology Obstetrics Olivia Lawson PA-C [address] [place] [address] 03/27/2023 Office Visit Maternal Medicine Ismael Oglesby DO [address] [place] [address] 03/27/2023 Imaging Radiology 06/19/2023 Telemedicine Endocrinology Francis Clark CRNP [address] [place] [address] Health Maintenance Due Date Last [...] filedocumented as of this encounter Care Teams Bi Data Architect Relationship Specialty Start Date End Date Jethro Stevens, [address] [place] [address] PCP - General Family Medicine 02/18/21 documented as of this encounter
--- OUTSIDE RECORDS SUMMARY | 2023-08-25 07:35 | External Medical Summary ---
Author Name Unknown Address Unknown Organization [id number][place] [place] [address] [place] [address] [place] [address] Laboratory Report Ordering Provider Test Date Status DANYELLE REY 02/01/2023 10:01:14 Final Observation Date Value Abnormality Reference (Units ) Status Hep C Ab 02/01/2023 10:01:14 Negative Negative Final Performing Location [facility] - [address] [place] [address] [address]
--- OUTSIDE RECORDS SUMMARY | 2023-08-25 07:35 | External Medical Summary ---
Author Name Unknown Address Unknown Organization K01:[facility] [place] [address] [place] [address] Laboratory Report Ordering Provider Test Date Status ABHIJIT REYSHANICE 02/01/2023 10:01:14 Final Observation Date Value Abnormality Reference (Units ) Status ABO 02/01/2023 10:01:14 O Final RH 02/01/2023 10:01:14 Positive Final RED BLOOD CELL ANTIBODY SCREEN 02/01/2023 10:01:14 Negative Final SPECIMEN EXPIRATION DATE 02/01/2023 10:01:14 02/04/2023 23:59 Final Performing Location [facility] [place] [address] [place] [address]
--- OUTSIDE RECORDS SUMMARY | 2023-08-25 07:35 | External Medical Summary ---
Author Name Unknown Address Unknown Organization [id number] [facility] [place] [address] [place] [address] Laboratory Report Ordering Provider Test Date Status CANDIDOBACKER 02/01/2023 10:01:14 Final Observation Date Value Abnormality Reference (Units ) Status Rubella virus IgG Ab [Presence] in Serum 02/01/2023 10:01:14 Positive Abnormal Negative Final Performing Location [facility] - [address] [place] [address]
--- OUTSIDE RECORDS SUMMARY | 2023-08-25 07:35 | External Medical Summary | Summary of Care ---
Author Name Unknown Organization [facility] Address [address] [facility] [place] [address] Phone [phone] Care Team Providers Care Bread Packer Name Role Phone Mendoza Stevensvor Reji Primary Care Provider Reason for Visit * Reason Onset Date Comments Medication Question 01/10/2023 Encounter Details Date Type Department Care Team Description 01/10/2023 Telephone Gynecology/Obstetrics [facility] [address] [place] [address] Candido Spain CRNP [address] [place] [address] Medication Question Allergies Active Allergy Reactions Severity [...] negative Patient received flu vaccine. 08/08/2013 Charlee oSuza RN GBS Negative KIRSTEN Rios, MARGARITA 09/30/2013 [...] encounter Miscellaneous Notes * Addendum Note - KIRSTEN Fox - 02/02/2023 8:55 AM EDTAddended by: CANDIDO SPAIN on: 02/02/2023 08:55 AM Modules accepted: Orders * Addendum Note - Chantale Paulino LPN [...] spoke with pt she said she will turkey picker in office if not able to make it here by 5 she will call us and have us fax letter. * Telephone Encounter - KIRSTEN Fox - 01/11/2023 3:32 PM EST Rx sent. KIRSTEN Reed * Telephone Encounter - Renay Hare RN - 01/11/2023 1:33 PM EST Per ER records patient was prescribed Zofran dissolving tablets 4mg Q4-6 hours PRN. Patient uses [facility] in [place] . * Telephone Encounter - KIRSTEN Fox [...] Maternal Medicine Sisi Martines CRNP [address] [place] [address] 02/27/2023 Laboratory Laboratory Dino Gibson [address] [place] [address] 02/27/2023 Office Visit Gynecology Obstetrics Olivia Lawson PA-C [address] [place] [address] 03/27/2023 Office Visit Maternal Medicine Ismael Oglesby DO [address] [place], [place] [address] 03/27/2023 Imaging Radiology 06/19/2023 Telemedicine Endocrinology Francis Clark CRNP [address] [place], [place] [address] Scheduled Orders Name Type Priority Associated Diagnoses Orde r Schedule QNATAL ADVANCED (QUEST) Lab Routine Supervision of high-risk , unspecified trimester Multigravida of advanced maternal age in first trimester Expected: 02/02/2023, Expires: 02/03/2024 Health Maintenance Due Date Last Done Comments [...] Supervision of high-risk , unspecified trimester- Primary Multigravida of advanced maternal age in first trimester documented in this encounter Care Teams Bread Packer Relationship Specialty Start Date End Date Jethro Stevens DO [address] [place] [address] PCP - General Family Medicine 02/18/21 documented as of this encounter
--- OUTSIDE RECORDS SUMMARY | 2023-08-25 07:35 | External Medical Summary ---
Author Name Unknown Address Unknown Organization : Laboratory Report Ordering Provider Test Date Status CANDIDODANYELLE 02/02/2023 12:37:26 Final Observation Date Value Abnormality Reference (Units ) Status NUMBER OF FETUSES? 02/02/2023 12:37:26 1 Final ADVANCED MATERNAL AGE? 02/02/2023 12:37:26 YES Final ABNORMAL KIZZY? 02/02/2023 12:37:26 NO Final ABNORMAL US? 02/02/2023 12:37:26 NOT GIVEN Final PERSONAL/FAM HISTORY? 02/02/2023 12:37:26 NOT GIVEN Final INTERPRETATION 02/02/2023 12:37:26 SEE BELOW Final Performing Location
--- OUTSIDE RECORDS SUMMARY | 2023-08-25 07:35 | External Medical Summary | Summary of Care ---
Author Name Unknown Organization [facility] Address [address] [facility] [place] [address] Phone [phone] Care Team Providers Care Command Center Officer Name Role Phone Jethro Stevens DO Primary Care Provider Reason for Visit * Reason Onset Date Comments Excuse for Absence 01/27/2023 Encounter Details Date Type Department Care Team Description 01/27/2023 Telephone Family Practice [facility] [address] [place] [address] Jethro Stevens DO [address] [facility] [place] [address] Excuse for Absence Allergies Active Allergy Reactions [...] 02/01/2023 Overview: Diet controlled Family history of [place] (myocardial infarct ion) [...] 02/01/2023) Immunizations Name Administration Dates Next Due Seasonal [...] encounter Miscellaneous Notes * Telephone Encounter - Jethro Stevens DO - 01/31/2023 5:01 PM EDT Signed - ok for nurse to sign - thank you * Telephone Encounter - Daria Zimmerman LPN - 01/31/2023 1:08 PM EDT Work note pended, please sign if approve. Place at front office assistant. Contacted pt who states she did not [...] Note will be faxed or picked up?: [phone] Fax number or phone number to call when note is completed: [phone] documented in this encounter Plan of Treatment Upcoming Encounters Date Type Specialty Care Team Description 02/27/2023 Laboratory Laboratory Dino Gibson [address] [facility] [place] [address] 02/27/2023 Office Visit Gynecology Obstetrics Olivia Lawson PA-Ann [address] [place] [address] 06/19/2023 Telemedicine Endocrinology Francis Clark CRNP [address] [place] [address] Health Maintenance Due Date Last Done Comments [...] unspecified documented in this encounter Care Teams Command Center Officer Relationship Specialty Start Date End Date Jethro Stevens DO [address] [place] [address] PCP - General Family Medicine 02/18/21 documented as of this encounter
--- OUTSIDE RECORDS SUMMARY | 2023-08-25 07:35 | External Medical Summary | Summary of Care ---
Author Name Unknown Organization [facility] Address [address] [facility] [place] [address] Phone [phone] Care Team Providers Care Centrifugal Chiller Technician Name Role Phone Jethro Stevens DO Primary Care Provider Reason for Visit * Reason Onset Date Comments Advice 01/02/2023 Encounter Details Date Type Department Care Team Description 01/02/2023 Telephone Family Practice [facility] [address] [place] [address] Jethro Stevens DO [address] [place] [address] Advice Allergies Active Allergy Reactions Severity Noted [...] MG PO TABS None Entered 0 3 Discontinued (Medication List Clean Up) SUMATRIPTAN SUCCINATE 50 MG PO TABSIndications:M igraine with intractable migraine 1 TABLET 1 TIME ONLY,REPEAT AFTER 2 HR NEEDED 30 Tab 3 11/12/2013 3 Discontinued (Medication List Clean Up) hydrOXYzine HCl 50 MG Oral TabletIndications :Anxiety TAKE ONE TABLET BY MOUTH EVERY 6 HOURS NEEDED FOR ANXIETY 40 Tablet 3 10/29/2021 3 Discontinued (Medication List Clean Up) methIMAzole 5 MG Oral Tablet (Tapazole)Indicat ions:Graves disease TAKE ONE TABLET BY MOUTH EVERY DAY 30 Tablet 5 04/25/2022 3 Discontinued (Medication List Clean Up) Propranolol HCl 10 MG Oral Tablet (Inderal)Indicati ons:Anxiety,Grave s disease,Hyperthyr oidism TAKE ONE TABLET BY MOUTH TWICE A DAY (MORNING AND BEFORE BEDTIME) 60 Tablet 5 12/28/2022 3 Discontinued (Medication List Clean Up) Trulicity 0.75 MG/0.5ML Subcutaneous Solution Pen-injector (Dulaglutide)Abimbola cations:Insulin resistance Inject 0.75 mg under the skin once a week. 3 mL 6 12/30/2022 3 Discontinued (Medication List Clean Up) Doxycycline Hyclate 100 MG Oral CapsuleIndication s:Acute maxillary sinusitis, recurrence not specified,Acute cough Take 1 Capsule by mouth in the morning and 1 Capsule before bedtime. Do all this for 10 days. Until gone.. 20 Capsule 0 12/31/2022 3 Loratadine 10 MG Oral Tablet (Claritin) Take 1 Tablet by mouth in the morning. 30 Tablet 0 12/31/2022 3 Discontinued (Medication List Clean Up) documented as of this [...] 02/01/2023 Overview: Diet controlled Family history of [place] (myocardial infarct ion) [...] encounter Miscellaneous Notes * Telephone Encounter - Tierra Cottrell LPN - 02/01/2023 3:12 PM EDT See more recent Sourav * Telephone Encounter - Tierra Cottrell LPN - 01/05/2023 12:37 PM EST left message for patient to call back. * Telephone Encounter - Idalia Mobley MD - 01/02/2023 6:00 PM EST Had nausea and vomiting even prior to starting the doxycycline, take with food. prescription for nausea medications sent. if symptoms persist, schedule in-person appointment for evaluation * Telephone Encounter - Nathalie Casillas LPN - 01/02/2023 2:31 PM EST Been sick for about 10 days now. Placed on doxycycline. Been throwing up since taking it. Has been miserable on this medicine. Cough keeping her up and she is just plain tired. Asking if something else can be ordered? * Telephone Encounter - EDE Martinez - 01/02/2023 2:26 PM EST Reason for patient's call: Pt calling in regards to speaking to a nurse about her current condition. Caller was transferred to [facility] at the nurse line. documented in this encounter Plan of Treatment Upcoming Encounters Date Type Specialty Care Team Description 02/27/2023 Laboratory Laboratory [facility] [address] [facility] [place] [address] 02/27/2023 Office Visit Gynecology Obstetrics Olivia Lawson PA-C [address] [facility] [place] [address] 06/19/2023 Telemedicine Endocrinology Francis Clark CRNP [address] [place] [address] Health Maintenance Due Date Last Done Comments [...] as of this encounter Visit Diagnoses Diagnosis History of nausea and vomiting- Primary Personal history of other diseases of digestive system documented in this encounter Care Teams Centrifugal Chiller Technician Relationship Specialty Start Date End Date Jethro Stevens DO [address] [place] [address] PCP - General Family Medicine 02/18/21 documented as of this encounter
--- OUTSIDE RECORDS SUMMARY | 2023-08-25 07:35 | External Medical Summary ---
Author Name Unknown Address Unknown Organization K01[place] [place] [address] [place] [address] Laboratory Report Ordering Provider Test Date Status CANDIDOBACKER 02/01/2023 10:01:14 Final Observation Date Value Abnormality Reference (Units ) Status WBC, Total 02/01/2023 10:01:14 10.13 4.00-10.8 0 (K/uL) Final RBC 02/01/2023 10:01:14 4.77 3.85-5.15 (M/uL) Final Hemoglobin 02/01/2023 10:01:14 13.3 12.0-15.3 (g/dL) Final Performing Location [facility] - [address] [place] [address]
--- OUTSIDE RECORDS SUMMARY | 2023-08-25 07:35 | External Medical Summary | Summary of Care ---
Author Name Unknown Organization [facility] Address [address] [facility] [place] [address] Phone [phone] Care Team Providers Care Pediatric Speech Therapist Name Role Phone RodneyJethrorip Primary Care Provider Reason for Visit * Reason Comments Outpatient Testing Encounter Details Date Type Department Care Team Description 02/01/2023 [facility] [address] [facility] [place] [address] GibsonDino mckeon [facility] [address] Supervision of high-risk , unspecified trimester; Hyperthyroidism affecting in first trimester Allergies Active Allergy Reactions [...] Laboratory Dino Gibson [address] [place] [address] 02/27/2023 Office Visit Gynecology Obstetrics Olivia Lawson PA-C [address] [place] [address] 06/19/2023 Telemedicine Endocrinology Francis Clark, [employer] ENGINEER [address] [place] [address] Pending Results Name Type Priority Associated Diagnoses Date /Time TYPE AND SCREEN Lab Routine Supervision of high-risk , unspecified trimester 02/01/2023 10:01 AM EDT RUBELLA IGG ANTIBODY Lab Routine Supervision of high-risk , unspecified trimester 02/01/2023 10:01 AM EDT HEPATITIS B SURFACE ANTIGEN Lab Routine Supervision of high-risk , unspecified trimester 02/01/2023 10:01 AM EDT HIV ANTIGEN & ANTIBODY SCREEN W/ CONFIRMATION Lab Routine Supervision of high-risk , unspecified trimester 02/01/2023 10:01 AM EDT CBC WITH WBC DIFFERENTIAL AND ANEMIA REFLEX WORKUP Lab Routine Supervision of high-risk , unspecified trimester 02/01/2023 10:01 AM EDT HEPATITIS C ANTIBODY SCREEN WITH PROGRESSION TO HEPATITIS C RNA QUANTITATIVE Lab Routine Supervision of high-risk , unspecified trimester 02/01/2023 10:01 AM EDT SYPHILIS ANTIBODY SCREEN WITH REFLEX TO RPR Lab Routine Supervision of high-risk , unspecified trimester 02/01/2023 10:01 AM EDT TSH WITH FREE T4 IF INDICATED Lab Routine Hyperthyroidism affecting in first trimester 02/01/2023 10:01 AM EDT ANEMIA CBC Lab Routine Supervision of high-risk , unspecified trimester 02/01/2023 10:01 AM EDT DIFFERENTIAL, AUTOMATED Lab Routine Supervision of high-risk , unspecified trimester 02/01/2023 10:01 AM EDT ANEMIA REFLEX CHEMISTRY HOLD Lab Routine Supervision of high-risk , unspecified trimester 02/01/2023 10:01 AM EDT HEPATITIS C ANTIBODY Lab Routine Supervision of high-risk , unspecified trimester 02/01/2023 10:01 AM EDT HEPATITIS C RNA ADD ON Lab Routine Supervision of high-risk , unspecified trimester 02/01/2023 10:01 AM EDT SYPHILIS ANTIBODY SCREEN Lab Routine Supervision of high-risk , unspecified trimester 02/01/2023 10:01 AM EDT Health Maintenance Due Date Last [...] Diagnosis Supervision of high-risk , unspecified trimester Hyperthyroidism affecting in first trimester documented in this encounter Care Teams Pediatric Speech Therapist Relationship Specialty Start Date End Date Jethro Stevens DO [address] [place] [address] PCP - General Family Medicine 02/18/21 documented as of this encounter
--- OUTSIDE RECORDS SUMMARY | 2023-08-25 07:35 | External Medical Summary | Summary of Care ---
Author Name Unknown Organization [facility] Address [address] [facility] [place] [address] Phone [phone] Care Team Providers Care Grain Elevator Motor Starter Name Role Phone RodneyJethrorip Primary Care Provider Reason for Referral * [...] , currently Diann Spain CRNP [address] [place] [address] Referral ID Status Reason Start Date Expiration Date Visits Requested Visits Authorized [id number] Pending Review Specialty Services Required 02/01/[phone] Question Answer Referral Priority Within 10 days (routine) Does the patient need to see a genetic counselor? Yes Indications for Referral Other - Please Comment - AMA, hx GDM, class 2 obesity, hyperthyroid Comments /Para: LMP: No LMP recorded. Patient is . EDC: 08/20/23 Pre-Gravid BMI: 37.30 Reason for Visit * Reason Comments New Visit Encounter Details Date Type Department Care Team Description 02/01/2023 Office Visit Gynecology/Obstetrics [facility] [address] [address] Backer, KIRSTEN Royal [address] [place] [address] Supervision of high-risk , unspecified trimester*; Obesity in , antepartum; Maternal asthma complicating ; Hyperthyroidism affecting in first trimester; Anxiety during ; Multigravida of advanced maternal age in first trimester; History of gestational diabetes in prior , currently ; Other specified related conditions, first trimester; Pap smear for cervical cancer screening Allergies Active Allergy Reactions Severity Noted Date [...] Oral Tablet Take by mouth. 0 Active IBUPROFEN 600 MG PO TABS None Entered [...] 02/01/2023 Overview: Diet controlled Family history of [place] (myocardial infarct ion) 02/18/2021 Hyperthyroidism 02/18/2021 Anxiety [...] Reading Time Taken Comments Blood Pressure 124/78 02/01/2023 8:45 AM EDT Pulse - - Temperature - - Respiratory Rate - - Oxygen Saturation - - Inhaled Oxygen Concentration - - Weight 92.3 kg (203 lb 6.4 oz) 02/01/2023 8:45 A M EDT Height 157.5 cm (5' 2") 02/01/2023 8:45 AM EDT Body Mass Index 37.2 02/01/2023 8:45 AM EDT documented in this encounter Progress Notes * KIRSTEN Fox - 02/01/2023 9:42 AM EDT CC: NOB HPI: Starr Dove is a 37 year old female here for initial OB exam. MITRA 08/20/23 by U/S. unplanned, but pt and partner are excited. She is taking vitamins. She plans not to breastfeed . Reviewed PMH, social hx, family hx, surgical hx, ob hx with patient. Pertinent positives: hyperthyroid, not currently on Methimazole. Normal TSH 11/2022; typically managed by endocrinology. Hx anxiety, doing well on Prozac. Hx seasonal allergic asthma, albuterol inhaler prn. Diet controlled GDM in 2016 . Current symptoms: nausea, managed with Phenergan. No bleeding/cramping. Discussed Qnatal and Quad screen. Reviewed current medications with patient. Last pap smear unknown - reports normal hx [place] Depression Scale: [place] Depression Scale Total: 2 [place] suicide question and score: Score of 3 = Yes, quite often. Score of 2 = Sometimes. Score of 1 = Hardly ever The thought of harming myself has occurred to me.: 0 OB History Para Term AB Living 5 2 2 0 2 2 SAB IAB Ectopic Multiple Live Births 2 2 # Outcome Date GA Lbr Kirit/2nd Weight Sex Delivery Anes PTL Lv 5 Current 4 SAB 2016 3 Term 10/31/16 39w0d 3.26 kg (7 lb 3 oz) M Vag-Spont N GENARO Complications: GDM (gestational diabetes mellitus) 2 Term 10/02/13 37w6d 11:11 2.551 kg (5 lb 10 oz) F Vag-Spont EPI N GENARO Comments: 1st degree vaginal 1 SAB 2011 6w0d Comments: no D&C Past Medical History: Diagnosis Date • Allergic rhinitis due to other allergen immunotherapy for 2 years • Anxiety 02/18/2021 • Asthma with severity to be determined 01/24/2000 ICD-10 update of inactive term • Attention deficit disorder without hyperactivity • GDM (gestational diabetes mellitus) • Graves disease • Hyperthyroidism 02/18/2021 • Reactive depression Social History Socioeconomic History • Marital status: Tobacco Use • Smoking status: Never • Smokeless tobacco: Never Vaping Use • Vaping Use: Never used Substance and Sexual Activity • Alcohol use: Yes Comment: occ • Drug use: No • Sexual activity: Yes Partners: Male Social Determinants of Health Food Insecurity: No Food Insecurity • Worried About Running Out of Food in the Last Year: Never true • Ran Out of Food in the Last Year: Never true Past Surgical History: Procedure Laterality Date • DENTAL SURGERY PROCEDURE NEC 1 wisdom tooth • INCISION OF EARDRUM as child Myringotomy/with tubes REMOVE TONSILS & ADENOIDS, UNDER 12 as child Tonsillectomy/Adenoids,<12 Y/O Current Outpatient Medications Medication Sig Dispense Refill • Albuterol Sulfate HFA 108 (90 Base) MCG/ACT Inhalation Aerosol Solution Inhale 2 Puffs by mouthevery 4 hours as needed for Cough, Shortness of Breath or Wheezing. 18 g 3 • FLUoxetine HCl 40 MG Oral Capsule (PROzac) Take by mouth 1 Capsule in the morning. 30 Capsule 11 • 28-0.8 MG Oral Tablet Take by mouth. • Promethazine HCl 25 MG Oral Tablet (Phenergan) Take 0.5 Tablets by mouth every 8 hours as needed for Nausea. or vomiting (Patient not taking: Reported on 01/27/2023) 12 Tablet 0 No current facility-administered medications for this visit. Review of patient's allergies indicates: Allergen Reactions • Doxycycline • Environmental [Pollen] • Peanut Oil Family History Problem Relation Age of Onset • Diabetes Mother 57 hx of TIA. during card cath • Hypertension Mother • Transient ischemic attack Mother during cardiac cath • No Past Hx Sister • Diabetes Grandmother (Maternal) • Hypertension Grandmother (Maternal) • Arthritis Grandmother (Maternal) • Heart Disorder Grandfather (Maternal) Denies family history of genetic conditions in patient's and FOB's families. ROS: General: no fevers, chills CV: no chest pain, SOB GI: no constipation, diarrhea, + nausea Breast: no masses, nipple discharge, tenderness : no vaginal bleeding, unusual vaginal discharge, dysuria Psychological: no anxiety, depression, SI/HI PHYSICAL EXAM: please see physical Litigation Examiner Documentation Provider requested new product trainer. Name of new product trainer: Ban Rhodes LPN ASSESSMENT/PLAN: Supervision of high-risk , unspecified trimester (Primary) - CULTURE, URINE, QUANTITATIVE - TYPE AND SCREEN; Future; Expected date: 02/01/2023 - RUBELLA IGG ANTIBODY; Future; Expected date: 02/01/2023 - HEPATITIS B SURFACE ANTIGEN; Future; Expected date: 02/01/2023 - HIV ANTIGEN & ANTIBODY SCREEN W/ CONFIRMATION; Future; Expected date: 02/01/2023 - CHLAMYDIA TRACHOMATIS AND NEISSERIA GONORRHOEAE, AMPLIFIED PROBE - CBC WITH WBC DIFFERENTIAL AND ANEMIA REFLEX WORKUP; Future; Expected date: 02/01/2023 - HEPATITIS C ANTIBODY SCREEN WITH PROGRESSION TO HEPATITIS C RNA QUANTITATIVE; Future; Expected date: 02/01/2023 - SYPHILIS ANTIBODY SCREEN WITH REFLEX TO RPR; Future; Expected date: 02/01/2023 - MATERNAL MEDICINE REFERRAL OP - MFM US MATERNAL 1ST FETUS; Future; Expected date: 05/04/2023 Obesity in , antepartum - 50-G GESTATIONAL GLUCOSE, 1 HOUR; Future; Expected date: 02/01/2023 - MATERNAL MEDICINE REFERRAL OP - MFM US MATERNAL 1ST FETUS; Future; Expected date: 05/04/2023 Maternal asthma complicating - MATERNAL MEDICINE REFERRAL OP - MFM US MATERNAL 1ST FETUS; Future; Expected date: 05/04/2023 Hyperthyroidism affecting in first trimester - MATERNAL MEDICINE REFERRAL OP - MFM US MATERNAL 1ST FETUS; Future; Expected date: 05/04/2023 - TSH WITH FREE T4 IF INDICATED; Future; Expected date: 02/01/2023 - recommend notifying endocrinology of . Defer to them for treatment if TSH is abnormal. Reviewed importance of euthyroid in . Anxiety during - MATERNAL MEDICINE REFERRAL OP - MFM US MATERNAL 1ST FETUS; Future; Expected date: 05/04/2023 - continue Prozac, benefits of treating maternal mental health > risks of medication Multigravida of advanced maternal age in first trimester - MATERNAL MEDICINE REFERRAL OP - MFM US MATERNAL 1ST FETUS; Future; Expected date: 05/04/2023 History of gestational diabetes in prior , currently - MATERNAL MEDICINE REFERRAL OP - MFM US MATERNAL 1ST FETUS; Future; Expected date: 05/04/2023 - Will do early GTT Other specified related conditions, first trimester - MFM US MATERNAL 1ST FETUS; Future; Expected date: 05/04/2023 Pap smear for cervical cancer screening - B2B ACCOUNT EXECUTIVE PAP SCREEN Follow Up: Return in about 4 weeks (around 03/01/2023) for rpn. | For: rpn | Check-out note: Labs today. Schedule glucose test. - Discussed timing of routine OB care - Offered genetic screening and explained that screening does not provide a definitive diagnosis. Patient is likely going to do Qnatal testing; recommended that she check insurance coverage and notify office if desired. - Counseled on OTC measures to help alleviate nausea and advised to call if these are ineffective - Recommended daily vitamin. - Discussed labs as ordered and instructed patient to present to lab following appointment. - MFM referral and indications discussed - RTO in 4 weeks for LATHA YAO with concern KIRSTEN Reed documented in this encounter Plan of Treatment Upcoming Encounters Date Type Specialty Care Team Description 02/01/2023 Laboratory Laboratory Dino Gibson [address] [address] Supervision of high-risk , unspecified trimester; Hyperthyroidism affecting in first trimester 02/27/2023 Laboratory Laboratory Dino Gibson [address] [address] 02/27/2023 Office Visit Gynecology Obstetrics Olivia Lawson PA-C [address] [place] [address] 06/19/2023 Telemedicine Endocrinology Francis Clark CRNP [address] [place], [place] [id number] Pending Results Name Type Priority Associated Diagnoses Date /Time CULTURE, URINE, QUANTITATIVE Lab Routine Supervision of high-risk , unspecified trimester 02/01/2023 9:43 AM EDT TYPE AND SCREEN Lab Routine Supervision of [...] , unspecified trimester 02/01/2023 10:01 AM EDT CHLAMYDIA TRACHOMATIS AND NEISSERIA GONORRHOEAE, AMPLIFIED PROBE Lab Routine Supervision of high-risk , unspecified trimester 02/01/2023 9:43 AM EDT CBC WITH WBC DIFFERENTIAL AND [...] , unspecified trimester 02/01/2023 10:01 AM EDT B2B ACCOUNT EXECUTIVE PAP SCREEN Pathology Routine Pap smear for cervical cancer screening 02/01/2023 9:43 AM EDT TSH WITH FREE T4 IF INDICATED Lab Routine Hyperthyroidism affecting in first trimester 02/01/2023 10:01 AM EDT Scheduled Orders Name Type Priority Associated Diagnoses Orde r Schedule TYPE AND SCREEN Lab Routine Supervision of high-risk , unspecified trimester Expected: 02/01/2023 (Approximate), Expires: 03/04/2024 RUBELLA IGG ANTIBODY Lab Routine Supervision of high-risk , unspecified trimester Expected: 02/01/2023 (Approximate), Expires: 02/02/2024 HEPATITIS B SURFACE ANTIGEN Lab Routine Supervision of high-risk , unspecified trimester Expected: 02/01/2023 (Approximate), Expires: 02/02/2024 HIV ANTIGEN & ANTIBODY SCREEN W/ CONFIRMATION Lab Routine Supervision of high-risk , unspecified trimester Expected: 02/01/2023 (Approximate), Expires: 02/02/2024 CBC WITH WBC DIFFERENTIAL AND ANEMIA REFLEX WORKUP Lab Routine Supervision of high-risk , unspecified trimester Expected: 02/01/2023 (Approximate), Expires: 02/02/2024 HEPATITIS C ANTIBODY SCREEN WITH PROGRESSION TO HEPATITIS C RNA QUANTITATIVE Lab Routine Supervision of high-risk , unspecified trimester Expected: 02/01/2023 (Approximate), Expires: 02/02/2024 SYPHILIS ANTIBODY SCREEN WITH REFLEX TO RPR Lab Routine Supervision of high-risk , unspecified trimester Expected: 02/01/2023 (Approximate), Expires: 02/02/2024 50-G GESTATIONAL GLUCOSE, 1 HOUR Lab Routine Obesity in , antepartum History of gestational diabetes in prior , currently Expected: 02/01/2023 (Approximate), Expires: 02/02/2024 MFM US MATERNAL 1ST FETUS Medical Imaging Routine Supervision of high-risk , unspecified trimester Obesity in , antepartum Maternal asthma complicating Hyperthyroidism affecting in first trimester Anxiety during Multigravida of advanced maternal age in first trimester History of gestational diabetes in prior , currently Other specified related conditions, first trimester Expected: 05/04/2023 (Approximate), Expires: 03/04/2024 TSH WITH FREE T4 IF INDICATED Lab Routine Hyperthyroidism affecting in first trimester Expected: 02/01/2023 (Approximate), Expires: 02/02/2024 Scheduled Referrals Name Type Priority Associated Diagnoses Orde r Schedule MATERNAL MEDICINE REFERRAL OP Referral Within 10 days (routine) Supervision of high-risk , unspecified trimester Obesity in , antepartum Maternal asthma complicating Hyperthyroidism affecting in first trimester Anxiety during Multigravida of advanced maternal age in first trimester History of gestational diabetes in prior , currently Ordered: 02/01/2023 Health Maintenance Due Date Last Done Comments [...] or the puerperium, antepartum condition or complication Maternal asthma complicating Other current maternal conditions classifiable elsewhere, complicating , childbirth, or the puerperium, unspecified as to episode of care Hyperthyroidism affecting in first trimester Anxiety during Multigravida of advanced maternal age in first trimester History of gestational diabetes in prior , currently with other poor obstetric history Other specified related conditions, first trimester Pap smear for cervical cancer screening Screening for malignant neoplasm of the cervix Supervision of high-risk , unspecified trimester Hyperthyroidism affecting in first trimester documented in this encounter Care Teams Grain Elevator Motor Starter Relationship Specialty Start Date End Date Jethro Stevens DO [address] [address] PCP - General Family Medicine 02/18/21 documented as of this encounter
--- OUTSIDE RECORDS SUMMARY | 2023-08-25 07:35 | External Medical Summary ---
Author Name Unknown Address Unknown Organization [id number][place] [facility] [place] [address] [place] [address] Laboratory Report Ordering Provider Test Date Status DANYELLE REY 02/01/2023 10:01:14 Final Observation Date Value Abnormality Reference (Units ) Status TSH 02/01/2023 10:01:14 0.41 0.27-4.20 (uIU/mL) Final Performing Location LABORATORY C - [address] [place] [address]
--- OUTSIDE RECORDS SUMMARY | 2023-08-25 07:35 | External Medical Summary | Summary of Care ---
Author Name Unknown Organization [facility] Address [address] [facility] [place] [address] Phone [phone] Care Team Providers Care Archeologist Name Role Phone Mendoza Stevensvor Reji Primary Care Provider Reason for Visit * Reason Onset Date Comments Forms Request 01/18/2023 Encounter Details Date Type Department Care Team Description 01/18/2023 Telephone Gynecology/Obstetrics [facility] [address] [place] [address] Diann Spain CRNP [address] [facility] ([place], [place] [address] Forms Request Allergies Active Allergy Reactions Severity Noted Date Comments Pollen 05/29/2013 Peanut Oil 05/29/2013 documented as of this encounter (statuses as of 01/18/2023) Medications Medication Sig Dispensed Refills Start Date End Date Status IBUPROFEN 600 MG PO TABS None Entered 0 Active SUMATRIPTAN SUCCINATE 50 MG PO TABSIndications:Migr panda with intractable migraine 1 TABLET 1 TIME ONLY,REPEAT AFTER 2 HR NEEDED 30 Tab 3 11/12/2013 Active hydrOXYzine HCl 50 MG Oral TabletIndications:An xiety TAKE ONE TABLET BY MOUTH EVERY 6 HOURS NEEDED FOR ANXIETY 40 Tablet 3 10/29/2021 Active Albuterol Sulfate HFA 108 (90 Base) MCG/ACT Inhalation Aerosol Solution Inhale 2 Puffs by mouth every 4 hours as needed for Cough, Shortness of Breath or Wheezing. 18 g 3 11/26/2021 Active methIMAzole 5 MG Oral Tablet (Tapazole)Indication s:Graves disease TAKE ONE TABLET BY MOUTH EVERY DAY 30 Tablet 5 04/25/2022 Active Additional Information Patient taking differently: 2.5 mg, Reported on 12/31/2022 FLUoxetine HCl 40 MG Oral Capsule (PROzac) Take by mouth 1 Capsule in the morning. 30 Capsule 11 07/26/2022 Active Propranolol HCl 10 MG Oral Tablet (Inderal)Indications :Anxiety,Graves disease,Hyperthyroid ism TAKE ONE TABLET BY MOUTH TWICE A DAY (MORNING AND BEFORE BEDTIME) 60 Tablet 5 12/28/2022 Active Trulicity 0.75 MG/0.5ML Subcutaneous Solution Pen-injector (Dulaglutide)Indicat ions:Insulin resistance Inject 0.75 mg under the skin once a week. 3 mL 6 12/30/2022 Active Loratadine 10 MG Oral Tablet (Claritin) Take 1 Tablet by mouth in the morning. 30 Tablet 0 12/31/2022 Active Promethazine HCl 25 MG Oral Tablet (Phenergan)Indicatio ns:History of nausea and vomiting Take 0.5 Tablets by mouth every 8 hours as needed for Nausea. or vomiting 12 Tablet 0 01/02/2023 Active Ondansetron 4 MG Oral Tablet Disintegrating (Zofran) Place 1 Tablet on tongue every 8 hours as needed for Nausea. dissolve on tongue. 30 Tablet 1 01/11/2023 Active documented as of this encounter (statuses as of 01/18/2023) Active Problems Problem Noted Date Family history of [place] (myocardial infarct ion) 02/18/2021 Hyperthyroidism 02/18/2021 Anxiety 02/18/2021 Graves disease 02/18/2021 Other allergic rhinitis 07/30/2001 Overview: ICD-10 update of inactive term Asthma with severity to be determined Overview: ICD-10 update of inactive term ATTN DEFIC NONHYPERACT 01/24/2000 EXT ASTHMA W-O STAT ASTH Dysmenorrhea documented as of this encounter (statuses as of 01/18/2023) Resolved Problems Problem Noted Date Resolved Date [...] as of this encounter (statuses as of 01/18/2023) Immunizations Name Administration Dates Next Due Seasonal [...] got money to buy more. Never true 09/23/2020 Within the past 12 months, t he food you bought just didn't last and you didn't have money to get more. Never true 09/23/2020 Sex Assigned at Date Recorded Not on file Job Start Date Occupation Industry Not on file Not on file Not on file documented as of this encounter Miscellaneous Notes * Telephone Encounter - Taylor Patel RN - 01/18/2023 11:52 AM EST Spoke with pt. She states that she has not been seen and will ask for these things after she is. She has notified [facility] of this but they are still trying to get the info. * Telephone Encounter - EDE Turcios - 01/18/2023 11:00 AM EST Chuyita with [facility] Absence management. Needs the following for the patient. -Paper work that was sent for pt has an estimate delivery date of none, they need due date. 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 [place] [address] 02/01/2023 Imaging Radiology 02/01/2023 Office Visit Gynecology Obstetrics Backer, KIRSTEN Royal [address] [facility] [place] [address] 03/09/2023 Telemedicine Endocrinology Francis Clark CRNP [address] [facility] [place] [address] Health Maintenance Due Date Last Done [...] filedocumented as of this encounter Care Teams Archeologist Relationship Specialty Start Date End Date Jethro Stevens DO [address] [place] [address] PCP - General Family Medicine 02/18/21 documented as of this encounter
--- OUTSIDE RECORDS SUMMARY | 2023-08-25 07:35 | External Medical Summary ---
Author Name Unknown Address Unknown Organization [id number]:[place] [facility] [place] [address] [place] [address] [address] Laboratory Report Ordering Provider Test Date Status DANYELLE REY 02/01/2023 09:43:30 Final Observation Date Value Abnormality Reference (Units ) Status Chlamydia trachomatis rRNA [Presence] in Specimen by SHRAVAN with probe detection 02/01/2023 09:43:30 Negative Negative Final Performing Location [facility] [place] [address] [place] [address]
--- OUTSIDE RECORDS SUMMARY | 2023-08-25 07:35 | External Medical Summary ---
Author Name Unknown Address Unknown Organization [id number][place] [facility] [place] [address] [place] [address] Laboratory Report Ordering Provider Test Date Status DANYELLE REY 02/01/2023 10:01:14 Final Observation Date Value Abnormality Reference (Units ) Status Treponema pallidum Ab [Presence] in Serum by Immunoassay 02/01/2023 10:01:14 Nonreactive Nonreactive Final Performing Location [place] [facility] [place] [address] [place] [address]
--- OUTSIDE RECORDS SUMMARY | 2023-08-25 07:36 | External Medical Summary | Summary of Care ---
Author Name Unknown Organization [place] [address] Care Team Providers Care Black And White Printer Operator Name Role Phone Jethro Stevens DO Primary Care Provider Reason for Visit * Reason Onset Date Comments Pre Cert/Prior Auth 11/30/2022 Encounter Details Date Type Department Care Team Description 11/30/2022 Telephone Family Practice [facility] [address] [place] [address] Jethro Stevens DO [address] [facility] [place] [address] Pre Cert/Prior Auth Allergies Active Allergy Reactions Severity Noted Date Comments Pollen 05/29/2013 Peanut Oil 05/29/2013 documented as of this encounter (statuses as of 12/05/2022) Medications Medication Sig Dispensed Refills Start Date End Date Status IBUPROFEN 600 MG PO TABS None Entered 0 Active SUMATRIPTAN SUCCINATE 50 MG PO TABSIndications:Junior jose roberto with intractable migraine 1 TABLET 1 TIME ONLY,REPEAT AFTER 2 HR NEEDED 30 Tab 3 11/12/2013 Active hydrOXYzine HCl 50 MG Oral TabletIndications:A nxiety TAKE ONE TABLET BY MOUTH EVERY 6 HOURS NEEDED FOR ANXIETY 40 Tablet 3 10/29/2021 Active Albuterol Sulfate HFA 108 (90 Base) MCG/ACT Inhalation Aerosol Solution Inhale 2 Puffs by mouth every 4 hours as needed for Cough, Shortness of Breath or Wheezing. 18 g 3 11/26/2021 Active Propranolol HCl 10 MG Oral Tablet (Inderal)Indication s:Anxiety,Graves disease,Hyperthyroi dism Take by mouth 1 Tablet in the morning AND 1 Tablet before bedtime. 60 Tablet 5 02/17/2022 Active Additional Information Patient taking differently:10 mg Oral BID(AM/PM),Pt is taking one tablet by mouth daily., Reported on 05/24/2022 methIMAzole 5 MG Oral Tablet (Tapazole)Indicatio ns:Graves disease TAKE ONE TABLET BY MOUTH EVERY DAY 30 Tablet 5 04/25/2022 Active Additional Information Patient taking differently: 2.5 mg, Reported on 05/24/2022 Phentermine HCl 15 MG Oral Capsule Take by mouth 1 Capsule in the morning. 30 Capsule 0 06/29/2022 Active predniSONE 10 MG Oral Tablet (Deltasone) Take 5 tabs for 2 days, 4 tabs for 2 days, 3 tabs for 2 days, 2 tabs for 2 days 1 tab for 2 days 30 Tablet 0 07/08/2022 Active FLUoxetine HCl 40 MG Oral Capsule (PROzac) Take by mouth 1 Capsule in the morning. 30 Capsule 11 07/26/2022 Active Ozempic (0.25 or 0.5 MG/DOSE) 2 MG/1.5ML Solution Pen-injector (Semaglutide(0.25 or 0.5MG/DOS))Indicati ons:Insulin resistance Inject 0.25 mg under the skin once a week. 3 mL 3 11/23/2022 Active documented as of this encounter (statuses as of 12/05/2022) Active Problems Problem Noted Date Family history of [place] (myocardial infarct ion) 02/18/2021 Hyperthyroidism 02/18/2021 Anxiety 02/18/2021 Graves disease 02/18/2021 Other allergic rhinitis 07/30/2001 Overview: ICD-10 update of inactive term Asthma with severity to be determined Overview: ICD-10 update of inactive term ATTN DEFIC NONHYPERACT 01/24/2000 EXT ASTHMA W-O STAT ASTH Dysmenorrhea documented as of this encounter (statuses as of 12/05/2022) Resolved Problems Problem Noted Date Resolved Date [...] as of this encounter (statuses as of 12/05/2022) Immunizations Name Administration Dates Next Due DT [...] encounter Miscellaneous Notes * Telephone Encounter - Daria Zimmerman LPN - 12/05/2022 3:15 PM EST Received denial notice due to: 1. No medical documention of therapeutic failure, contraindication or intolerance of 2 preferred Hypoglycemics, Incretin Mimetics/Enhancers with the same mechanism of action. Formulary Alternatives: Trulicity, Victoza. Please consider an Rx for Trulicity. * Telephone Encounter - Daria Zimmerman LPN - 12/05/2022 11:24 AM EST Prior auth form completed along with last office notes faxed to [facility] at [phone] with receipt confirmation. Contacted pt to notify we submitted PA. Pt has insulin resistance, has tried Phentermine which did not work for pt. Pt states if Ozempic is denied, asking if Trulicity can be prescribed. Awaiting decision from insurance. * Telephone Encounter - Comfort Britt RN - 11/30/2022 12:48 PM EST Prior auth needed for Ozempic. Form started and placed on Dr Stevens's desk. documented in this encounter Plan of Treatment Upcoming Encounters Date Type Specialty Care Team Description 01/17/2023 Office Visit Gynecology Obstetrics Nadia Pressley MD [address] [facility] [place] [address] 03/09/2023 Telemedicine Endocrinology Fracnis Clark CRNP [address] [facility] [place] [address] Health Maintenance Due Date Last Done Comments COVID-19 Vaccine (#1) 03/05/1986 Pneumococcal Vaccine: Pediatrics (0 to 5 Years) and At-Risk Patients (6 to 64 Years) (1 - PCV) 1991 Hepatitis C Screening 2003 PAP SMEAR-EVERY 3 YRS,AGES 21-65 2006 Depression Screening, Annual for Pts 12 and Over 09/23/2021 09/23/2020 Influenza Vaccine (FLU shot) (#1) 2022 09/23/2020, 08/08/2013 *SPIROMETRY ONCE FOR ASTHMA-ADULT 10/13/2022 Diabetes [...] filedocumented as of this encounter Care Teams Black And White Printer Operator Relationship Specialty Start Date End Date Jethro Stevens, [address] [place] [address] PCP - General Family Medicine 02/18/21 documented as of this encounter
--- OUTSIDE RECORDS SUMMARY | 2023-08-25 07:36 | External Medical Summary | Summary of Care ---
Author Name Unknown Organization [place] [address] Care Team Providers Care Weather Teacher Name Role Phone Rodney Jethro Floresrip Primary Care Provider Reason for Visit * Reason Onset Date Comments Appointment 11/15/2022 Encounter Details Date Type Department Care Team Description 11/15/2022 Telephone Gynecology/Obstetrics [facility] [address] [facility] [place] [address] Diann Spain CRNP [address] [place] [address] Appointment Allergies Active Allergy Reactions Severity Noted Date Comments Pollen 05/29/2013 Peanut Oil 05/29/2013 documented as of this encounter (statuses as of 11/16/2022) Medications Medication Sig Dispensed Refills Start Date End Date Status IBUPROFEN 600 MG PO TABS None Entered 0 Active SUMATRIPTAN SUCCINATE 50 MG PO TABSIndications:Junior cid [...] taking differently: 2.5 mg, Reported on 05/24/2022 Ozempic (0.25 or 0.5 MG/DOSE) 2 MG/1.5ML Solution Pen-injector (Semaglutide(0.25 or 0.5MG/DOS))Indicati ons:Insulin resistance Inject under the skin 0.25 mg once a week . 3 mL 3 06/15/2022 Active Phentermine HCl 15 MG Oral Capsule Take [...] the morning. 30 Capsule 11 07/26/2022 Active documented as of this encounter (statuses as of 11/16/2022) Active Problems Problem Noted Date Family history of [place] (myocardial infarct ion) 02/18/2021 Hyperthyroidism 02/18/2021 Anxiety 02/18/2021 Graves disease 02/18/2021 Other allergic rhinitis 07/30/2001 Overview: ICD-10 update of inactive term Asthma with severity to be determined Overview: ICD-10 update of inactive term ATTN DEFIC NONHYPERACT 01/24/2000 EXT ASTHMA W-O STAT ASTH Dysmenorrhea documented as of this encounter (statuses as of 11/16/2022) Resolved Problems Problem Noted Date Resolved Date [...] as of this encounter (statuses as of 11/16/2022) Immunizations Name Administration Dates Next Due DT [...] Miscellaneous Notes * Telephone Encounter - EDE Marc - 11/16/2022 9:01 AM EST Apt scheduled * Telephone Encounter - EDE Marc - 11/15/2022 10:12 AM EST LMOM when pt calls back she needs rescheduled with a MD to discuss hysterectomy options * Telephone Encounter - Renay Hare RN - 11/15/2022 9:34 AM EST Please see Diann's note and assist patient with r/s appointment with a Doctor. Thank you. * Telephone Encounter - KIRSTEN Fox - 11/15/2022 9:13 AM EST Pt schedule with me 1/4 - per appt note, wants to discuss hysterectomy. Please have her reschedule w/physician. KIRSTEN Reed documented in this encounter Plan of Treatment Upcoming Encounters Date Type Specialty Care Team Description 01/17/2023 Office Visit [facility]ne[facility]stetric[facility] [address] [facility] [address] 03/09/2023 Telemedicine Endocrinology Francis Clark CRNP [address] [facility] [place] [address] Health Maintenance Due Date Last [...] filedocumented as of this encounter Care Teams Weather Teacher Relationship Specialty Start Date End Date Jethro Stevens DO [address] [place] [address] PCP - General Family Medicine 02/18/21 documented as of this encounter
--- OUTSIDE RECORDS SUMMARY | 2023-08-25 07:36 | External Medical Summary | Summary of Care ---
Author Name Unknown Organization [place] [address] Care Team Providers Care Grocery Buyer Name Role Phone Jethro Stevens DO Primary Care Provider Reason for Visit * Reason Comments Acute Throwing up, fatigue , cough, sinus drainage, congestion, sore throat. Encounter Details Date Type Department Care Team Description 12/31/2022 Telemedicine Family Medicine [facility] [address] [facility] [place] [address] Idalia Mobley MD [address] [facility] [place] [address] Acute maxillary sinusitis, recurrence not specified*; Acute cough; Hyperthyroidism; History of nausea and vomiting Allergies Active Allergy Reactions Severity Noted Date Comments Pollen 05/29/2013 Peanut Oil 05/29/2013 documented as of this encounter (statuses as of 12/31/2022) Medications Medication Sig Dispensed Refills Start Date End Date Status IBUPROFEN 600 MG PO TABS None Entered 0 Active SUMATRIPTAN SUCCINATE 50 MG PO TABSIndications:M igraine with intractable migraine 1 TABLET 1 TIME ONLY,REPEAT AFTER 2 HR NEEDED 30 Tab 3 11/12/2013 Active hydrOXYzine HCl 50 MG Oral TabletIndications :Anxiety TAKE ONE TABLET BY MOUTH EVERY 6 HOURS NEEDED FOR ANXIETY 40 Tablet 3 10/29/2021 Active Albuterol Sulfate HFA 108 (90 Base) MCG/ACT Inhalation Aerosol Solution Inhale 2 Puffs by mouth every 4 hours as needed for Cough, Shortness of Breath or Wheezing. 18 g 3 11/26/2021 Active methIMAzole 5 MG Oral Tablet (Tapazole)Indicat ions:Graves disease TAKE ONE TABLET BY MOUTH EVERY DAY 30 Tablet 5 04/25/2022 Active Additional Information Patient taking differently: 2.5 mg, Reported on 12/31/2022 FLUoxetine HCl 40 MG Oral Capsule (PROzac) Take by mouth 1 Capsule in the morning. 30 Capsule 11 07/26/2022 Active Propranolol HCl 10 MG Oral Tablet (Inderal)Indicati ons:Anxiety,Grave s disease,Hyperthyr oidism TAKE ONE TABLET BY MOUTH TWICE A DAY (MORNING AND BEFORE BEDTIME) 60 Tablet 5 12/28/2022 Active Trulicity 0.75 MG/0.5ML Subcutaneous Solution Pen-injector (Dulaglutide)Abimbola cations:Insulin resistance Inject 0.75 mg under the skin once a week. 3 mL 6 12/30/2022 Active Doxycycline Hyclate 100 MG Oral CapsuleIndication s:Acute maxillary sinusitis, recurrence not specified,Acute cough Take 1 Capsule by mouth in the morning and 1 Capsule before bedtime. Do all this for 10 days. Until gone.. 20 Capsule 0 12/31/2022 01/10/20 23 Active Loratadine 10 MG Oral Tablet (Claritin) Take 1 Tablet by mouth in the morning. 30 Tablet 0 12/31/2022 Active Phentermine HCl 15 MG Oral Capsule Take by mouth 1 Capsule in the morning. 30 Capsule 0 06/29/2022 12/31/19 23 Discontinued predniSONE 10 MG Oral Tablet (Deltasone) Take 5 tabs for 2 days, 4 tabs for 2 days, 3 tabs for 2 days, 2 tabs for 2 days 1 tab for 2 days 30 Tablet 0 07/08/2022 12/31/19 23 Discontinued documented as of this encounter (statuses as of 12/31/2022) Active Problems Problem Noted Date Family history of [place] (myocardial infarct ion) 02/18/2021 Hyperthyroidism 02/18/2021 Anxiety 02/18/2021 Graves disease 02/18/2021 Other allergic rhinitis 07/30/2001 Overview: ICD-10 update of inactive term Asthma with severity to be determined Overview: ICD-10 update of inactive term ATTN DEFIC NONHYPERACT 01/24/2000 EXT ASTHMA W-O STAT ASTH Dysmenorrhea documented as of this encounter (statuses as of 12/31/2022) Resolved Problems Problem Noted Date Resolved Date [...] as of this encounter (statuses as of 12/31/2022) Immunizations Name Administration Dates Next Due Seasonal [...] as of this encounter Progress Notes * Idalia Mobley MD - 12/31/2022 4:18 PM EST SUBJECTIVE: Starr Dove is a 37 year old female. Chief Complaint Patient presents with • Acute Throwing up, fatigue, cough, sinus drainage, congestion, sore throat. I was in a hospital or clinic location. After connecting through televideo, patient was verified with two unique identifiers. 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 Methods to assure confidentiality were taken. Patient acknowledged consent and understanding of privacy and security of the Telemedicine visit. The patient agreed to participate. HPI: This clinic encounter was completed utilizing remote or virtual means secondary to the COVID-19 outbreak. Patient is being seen for acute appointment with 9 day onset of symptoms, states started with fatigue, fever to 101° F, cough productive of a greenish sputum, runny nose with greenish secretions, sinus pressure on the right side of the face. Last day she had a fever was 5 days ago. No wheezing chest pain or shortness of breath. Had nausea and vomited last night 3 times attributes to the postnasal drainage, no vomiting or diarrhea today. Has been taking Mucinex, Tylenol cold and Sinus cough drops, albuterol inhaler about twice a day, medications reviewed, initially said she was taking propranolol twice daily and not taking methimazole, reviewed recent Endocrinology notes she was weaned off propranolol in August and had not been taking methimazole for at least 3 weeks and on labs in November were stable and they are monitoring with labs in 2 weeks. Gives history of influenza a month ago, reviewed chart she had a positive test 10/29/2022 at [facility]. Has not had COVID vaccine, has not done home COVID test either. She is on Trulicity for weight loss. LMP 12/14/2021. Immunization History Administered Date(s) Administered • Allergy Serum 05/17/2001 • DT - Diptheria/Tetanus (PEDS) 03/21/1986, 04/03/1987, 01/24/1991 • DTP Vaccine 1985, 01/23/1986 • Haemophilus B (HIB) 03/30/1989 • Hepatitis B, 0-19 yrs 07/02/1996, 09/11/1996, 02/25/1997 • MMR - Measles/Mumps/Rubella Vaccine 10/05/1987, 01/24/1991 • OPV - Polio Virus Vaccine (Oral) 1985, 01/23/1986, 09/26/1986, 01/24/1991 Seasonal Influenza, Quadrivalent, No Preserve, 6 Mons & Above, IM 09/23/2020 • Seasonal Influenza, Split, IIV3, With Preserve, Inj 08/08/2013 • TD - Tetanus/Diptheria (ADULT) 07/04/1997 • TDAP (age 10 and older)(Boostrix) 10/31/2016 Patient Active Problem List Diagnosis Code • Asthma with severity to be determined J45.909 • ATTN DEFIC NONHYPERACT F98.8 • Other allergic rhinitis J30.89 • EXT ASTHMA W-O STAT ASTH J45.909 • Dysmenorrhea N94.6 • Family history of [place] (myocardial infarction) Z82.49 • Hyperthyroidism E05.90 • Anxiety F41.9 • Graves disease E05.00 Current Outpatient Medications Medication Sig Dispense Refill • IBUPROFEN 600 MG PO TABS None Entered • Albuterol Sulfate HFA 108 (90 Base) MCG/ACT Inhalation Aerosol Solution Inhale 2 Puffs by mouthevery 4 hours as needed for Cough, Shortness of Breath or Wheezing. 18 g 3 • FLUoxetine HCl 40 MG Oral Capsule (PROzac) Take by mouth 1 Capsule in the morning. 30 Capsule 11 • Trulicity 0.75 MG/0.5ML Subcutaneous Solution Pen-injector (Dulaglutide) Inject 0.75 mg under the skin once a week. 3 mL 6 • SUMATRIPTAN SUCCINATE 50 MG PO TABS 1 TABLET 1 TIME ONLY,REPEAT AFTER 2 HR NEEDED 30 Tab 3 • hydrOXYzine HCl 50 MG Oral Tablet TAKE ONE TABLET BY MOUTH EVERY 6 HOURS NEEDED FOR ANXIETY 40 Tablet 3 • methIMAzole 5 MG Oral Tablet (Tapazole) TAKE ONE TABLET BY MOUTH EVERY DAY (Patient taking differently: 0.5 Tablets.) 30 Tablet 5 • Propranolol HCl 10 MG Oral Tablet (Inderal) TAKE ONE TABLET BY MOUTH TWICE A DAY (MORNING AND BEFORE BEDTIME) 60 Tablet 5 No current facility-administered medications for this visit. Review of patient's allergies indicates: Allergen Reactions • Environmental [Pollen] • Peanut Oil OBJECTIVE: No vitals were obtained for this appointment PHYSICAL EXAM: General: alert, healthy, no distress Head-normocephalic, no erythema + Rt max tenderness on patient exam Eyes-sclera clear. OP- Mm Moist Neck-supple Lungs: able to take deep breaths Neuro-alert with fluent speech ASSESSMENT/PLAN: Acute maxillary sinusitis, recurrence not specified (Primary) - Doxycycline Hyclate 100 MG Oral Capsule; Take 1 Capsule by mouth in the morning and 1 Capsule before bedtime. Do all this for 10 days. Until gone.. Acute cough - Doxycycline Hyclate 100 MG Oral Capsule; Take 1 Capsule by mouth in the morning and 1 Capsule before bedtime. Do all this for 10 days. Until gone.. Inc intake fluids. Advised to use otc nasal saline spray/drops q1-2 hrs while awake as needed. Advised warm saline gargles qid prn for relief. Ct Mucinex DM 1 or 2 pills by mouth twice a day for cough with plenty of water as needed Hyperthyroidism Off meds since nov Other orders - Add Loratadine 10 MG Oral Tablet (Claritin); Take 1 Tablet by mouth in the morning. If symptoms persist can add Flonase 2 sprays to each nostril daily History of nausea and vomiting Likely secondary postnasal drainage Follow Up: Return if symptoms worsen or fail to improve. (This note was completed using the dictation program Fluency Direct. As such, there may be misspellings, word substitutions, or other variations that should not change the essence of the clinical content of this encounter note. If there is need for further clarification, please direct questions to the provider listed above.) Patient and / caregiver verbalizes understanding of above instructions and agrees with plan of care. Idalia Mobley MD 12/31/2022 documented in this encounter Nursing Notes * Deana Nathan LPN - 12/31/2022 4:06 PM EST Patient presents today for a cough, sinus congestion, drainage, sore throat, vomiting and fatigue for the last 9 days. documented in this encounter Plan of Treatment Upcoming Encounters Date Type Specialty Care Team Description 01/17/2023 Office Visit Gynecology Obstetrics Wendie, Nadia Desai MD [address] [place] [address] 03/09/2023 Telemedicine Endocrinology [facility] Clark [facility] [address] [facility] [place] [address] Health Maintenance Due Date Last Done [...] as of this encounter Visit Diagnoses Diagnosis Acute maxillary sinusitis, recurrence not specified- Primary Acute cough Hyperthyroidism Thyrotoxicosis without mention of goiter or other cause, without mention of thyrotoxic crisis or storm History of nausea and vomiting Personal history of other diseases of digestive system documented in this encounter Care Teams Grocery Buyer Relationship Specialty Start Date End Date Jethro Stevens DO [address] [place] [address] PCP - General Family Medicine 02/18/21 documented as of this encounter
--- OUTSIDE RECORDS SUMMARY | 2023-08-25 07:36 | External Medical Summary | Summary of Care ---
Author Name Unknown Organization [place] [address] Care Team Providers Care Photographic Enlarger Operator Name Role Phone Jethro Stevens DO Primary Care Provider Reason for Visit * Reason Onset Date Comments Med Request 12/30/2022 Encounter Details Date Type Department Care Team Description 12/30/2022 Telephone Family Practice [facility] [address] [place] [address] Jethro Stevens DO [address] [facility] [place] [address] Med Request Allergies Active Allergy Reactions Severity Noted Date Comments Pollen 05/29/2013 Peanut Oil 05/29/2013 documented as of this encounter (statuses as of 01/02/2023) Medications Medication Sig Dispensed Refills Start Date [...] 11/26/2021 Active methIMAzole 5 MG Oral Tablet (Tapazole)Indicatio ns:Graves [...] BEFORE BEDTIME) 60 Tablet 5 12/28/2022 Active documented as of this encounter (statuses as of 01/02/2023) Active Problems Problem Noted Date Family history of [place] (myocardial infarct ion) 02/18/2021 Hyperthyroidism 02/18/2021 Anxiety 02/18/2021 Graves disease 02/18/2021 Other allergic rhinitis 07/30/2001 Overview: ICD-10 update of inactive term Asthma with severity to be determined Overview: ICD-10 update of inactive term ATTN DEFIC NONHYPERACT 01/24/2000 EXT ASTHMA W-O STAT ASTH Dysmenorrhea documented as of this encounter (statuses as of 01/02/2023) Resolved Problems Problem Noted Date Resolved Date [...] as of this encounter (statuses as of 01/02/2023) Immunizations Name Administration Dates Next Due Seasonal [...] Miscellaneous Notes * Telephone Encounter - EDE Cristobal - 12/31/2022 11:40 AM EST Patient has been notified of the message. Patient has been scheduled. * Telephone Encounter - Dorothy Cheney LPN - 12/30/2022 4:03 PM EST Pt should be seen for symptoms-please schedule appt documented in this encounter Plan of Treatment Upcoming Encounters Date Type Specialty Care Team Description 01/17/2023 Office Visit [facility]necology Obstetrics [facility] [address] [facility] [address] 03/09/2023 Telemedicine Endocrinology Francis Clark CRNP [address] [place] [address] Health Maintenance Due Date Last [...] filedocumented as of this encounter Care Teams Photographic Enlarger Operator Relationship Specialty Start Date End Date Jethro Stevens DO [address] [place] [address] PCP - General Family Medicine 02/18/21 documented as of this encounter
--- OUTSIDE RECORDS SUMMARY | 2023-08-25 07:36 | External Medical Summary | Summary of Care ---
Author Name Unknown Organization [place] [address] Care Team Providers Care Intermodal Customer Service Name Role Phone Rodney Jethro Floresrip Primary Care Provider Reason for Visit * Reason Onset Date Comments Medication Question 01/10/2023 Encounter Details Date Type Department Care Team Description 01/10/2023 Telephone Gynecology/Obstetrics [facility] [address] [facility] [place] [address] Diann Spain CRNP [address] [facility] [place] [address] Medication Question Allergies Active Allergy Reactions Severity Noted Date Comments Pollen 05/29/2013 Peanut Oil 05/29/2013 documented as of this encounter (statuses as of 01/13/2023) Medications Medication Sig Dispensed Refills Start Date [...] as of this encounter (statuses as of 01/13/2023) Active Problems Problem Noted Date Family history of [place] (myocardial infarct ion) 02/18/2021 Hyperthyroidism 02/18/2021 Anxiety 02/18/2021 Graves disease 02/18/2021 Other allergic rhinitis 07/30/2001 Overview: ICD-10 update of inactive term Asthma with severity to be determined Overview: ICD-10 update of inactive term ATTN DEFIC NONHYPERACT 01/24/2000 EXT ASTHMA W-O STAT ASTH Dysmenorrhea documented as of this encounter (statuses as of 01/13/2023) Resolved Problems Problem Noted Date Resolved Date [...] as of this encounter (statuses as of 01/13/2023) Immunizations Name Administration Dates Next Due Seasonal [...] encounter Miscellaneous Notes * Telephone Encounter - Anna Fields LPN - 01/13/2023 8:46 AM EST Pt is requesting a work retriction letter. I printed letter and spoke with pt she said she will picker box operator in office if not able to make it here by 5 she will call us and have us fax letter. * Telephone Encounter - KIRSTEN Fox - 01/11/2023 3:32 PM EST Rx sent. KIRSTEN Reed * Telephone Encounter - Renay Hare RN - 01/11/2023 1:33 PM EST Per ER records patient was prescribed Zofran dissolving tablets 4mg Q4-6 hours PRN. Patient uses [facility] in [place] . * Telephone Encounter - KIRSTEN Fox [...] 01/26/2023 Nurse Only Gynecology Obstetrics Gw, Nurse [employer] [address] [place] [address] 02/01/2023 Office Visit Gynecology Obstetrics Backer, KIRSTEN Royal [address] [place] [address] 03/09/2023 Telemedicine Endocrinology Francis Clark CRNP [address] [place] [address] Health Maintenance Due Date Last Done Comments [...] filedocumented as of this encounter Care Teams Intermodal Customer Service Relationship Specialty Start Date End Date Jethro Stevens DO [address] [address] PCP - General Family Medicine 02/18/21 documented as of this encounter
--- OUTSIDE RECORDS SUMMARY | 2023-08-25 07:36 | External Medical Summary | Summary of Care ---
Author Name Unknown Organization [place] [address] Care Team Providers Care Liturgical Music Director Name Role Phone Jethro Stevens DO Primary Care Provider Reason for Visit * Reason Onset Date Comments FYI 11/02/2022 Encounter Details Date Type Department Care Team Description 11/02/2022 Telephone Family Practice [facility] [address] [place] [address] Jethro Stevens DO [address] [place] [address] FYI Allergies Active Allergy Reactions Severity Noted Date Comments Pollen 05/29/2013 Peanut Oil 05/29/2013 documented as of this encounter (statuses as of 11/02/2022) Medications Medication Sig Dispensed Refills Start Date [...] as of this encounter (statuses as of 11/02/2022) Active Problems Problem Noted Date Family history of [place] (myocardial infarct ion) 02/18/2021 Hyperthyroidism 02/18/2021 Anxiety 02/18/2021 Graves disease 02/18/2021 Other allergic rhinitis 07/30/2001 Overview: ICD-10 update of inactive term Asthma with severity to be determined Overview: ICD-10 update of inactive term ATTN DEFIC NONHYPERACT 01/24/2000 EXT ASTHMA W-O STAT ASTH Dysmenorrhea documented as of this encounter (statuses as of 11/02/2022) Resolved Problems Problem Noted Date Resolved Date [...] as of this encounter (statuses as of 11/02/2022) Immunizations Name Administration Dates Next Due DT [...] Miscellaneous Notes * Telephone Encounter - EDE Samuel - 11/02/2022 1:49 PM EST Appt cancelled. * Telephone Encounter - Comfort Britt RN - 11/02/2022 1:42 PM EST Called pt. FMLA form faxed to [facility]. Copy sent to scan .Original mailed to pt's address. Pt does not need appt tomorrow. Please cancel. * Telephone Encounter - EDE Navas - 11/02/2022 11:38 AM EST Called to confirm tomorrows appt with patient. She needs excuse that she is cleared to go back to work and the [facility] paperwork filled out and faxed over to [facility] tomorrow. She said she sent the attachment over in [employer]. documented in this encounter Plan of Treatment Upcoming Encounters Date Type Specialty Care Team Description 03/09/2023 Telemedicine Endocrinology Francis Clark CRNP [address] [place], [place] [id number] Health Maintenance Due Date Last Done Comments [...] filedocumented as of this encounter Care Teams Liturgical Music Director Relationship Specialty Start Date End Date Jethro Stevens DO [address] [facility] [place] [address] PCP - General Family Medicine 02/18/21 documented as of this encounter
--- OUTSIDE RECORDS SUMMARY | 2023-08-25 07:36 | External Medical Summary | Summary of Care ---
Author Name Unknown Organization [place] [address] Care Team Providers Care Contact Worker Name Role Phone Jethro Stevens DO Primary Care Provider Reason for Visit * Reason Onset Date Comments Pre Cert/Prior Auth 11/30/2022 Encounter Details Date Type Department Care Team Description 11/30/2022 Telephone Family Practice [facility] [address] [place] [address] Jethro Stevens DO [address] [facility] [place] [address] Pre Cert/Prior Auth Allergies Active Allergy Reactions [...] Problems Problem Noted Date Family history of [place] (myocardial infarct ion) [...] 12/05/2022) Immunizations Name Administration Dates Next Due Seasonal [...] with last office notes faxed to [facility] at [phone] with receipt confirmation. Contacted pt to notify we submitted [place]. Pt has insulin resistance, has tried Phentermine which did not work for pt. Pt states if Ozempic is denied, asking if Trulicity can be prescribed. Awaiting decision from insurance. * Telephone Encounter - Comfort Britt RN - 11/30/2022 12:48 PM EST Prior auth needed for Ozempic. Form started and placed on Dr Stevnes's desk. documented in this encounter Plan of Treatment Upcoming Encounters Date Type Specialty Care Team Description 01/17/2023 Office Visit Gynecology Obstetrics BzNadia kern MD [address] [place], [place] [phone] 03/09/2023 Telemedicine Endocrinology Francis Clark CRNP [address] [place] [address] Health Maintenance Due Date Last [...] filedocumented as of this encounter Care Teams Contact Worker Relationship Specialty Start Date End Date Jethro Stevens DO [address] [place] [address] PCP - General Family Medicine 02/18/21 documented as of this encounter
--- OUTSIDE RECORDS SUMMARY | 2023-08-25 07:36 | External Medical Summary | Summary of Care ---
Author Name Unknown Organization [place] [address] Care Team Providers Care Rn L And D Name Role Phone Jethro Stevens DO Primary Care Provider Reason for Visit * Reason Onset Date Comments FYI 11/02/2022 Encounter Details Date Type Department Care Team Description 11/02/2022 Telephone Family Practice [facility] [address] [place] [address] Jethro Stevens DO [address] [place] [address] FYI Allergies Active Allergy Reactions Severity Noted [...] Problems Problem Noted Date Family history of [place] (myocardial infarct ion) [...] Miscellaneous Notes * Telephone Encounter - EDE Singh - 11/02/2022 3:13 PM EST FMLS form was faxed with date of 11/01/22. Please refax form with corrected date of 11/04/22 * Telephone Encounter - EDE Samuel - 11/02/2022 1:49 PM EST Appt cancelled. * Telephone Encounter - Comfort Britt RN - 11/02/2022 1:42 PM EST Called pt. FMLA form faxed to [facility]. Copy sent to scan .Original mailed to pt's address. Pt does not need appt tomorrow. Please cancel. * Telephone Encounter - EDE Navas - 11/02/2022 11:38 AM EST Called to confirm tomorrows appt with patient. She needs excuse that she is cleared to go back to work and the FMLA paperwork filled out and faxed over to [facility] tomorrow. She said she sent the attachment over in [employer]. documented in this encounter Plan of Treatment Upcoming Encounters Date Type Specialty Care Team Description 03/09/2023 Telemedicine Endocrinology Francis Clark CRNP [address] [place] [address] Health Maintenance Due Date Last Done Comments [...] filedocumented as of this encounter Care Teams Rn L And D Relationship Specialty Start Date End Date Jethro Stevens DO [address] [place] [address] PCP - General Family Medicine 02/18/21 documented as of this encounter
--- OUTSIDE RECORDS SUMMARY | 2023-08-25 07:36 | External Medical Summary | Summary of Care ---
Author Name Unknown Organization [place] [address] Care Team Providers Care Geospatial Program Management Officer Name Role Phone Geovanni Stevens DO Primary Care Provider Reason for Visit * Reason Onset Date Comments Medication Refill 11/23/2022 Encounter Details Date Type Department Care Team Description 11/23/2022 Refill [facility] [address] [place] [address] Geovanni Stevens DO 132 [facility] [place] [address] Insulin resistance Allergies Active Allergy Reactions Severity Noted Date Comments Pollen 05/29/2013 Peanut Oil 05/29/2013 documented as of this encounter (statuses as of 11/23/2022) Medications Medication Sig Dispensed Refills Start Date [...] Oral Tablet (Inderal)Indicati ons:Anxiety,Grave s disease,Hyperthyr oidism Take by mouth 1 Tablet in the morning AND 1 Tablet before bedtime. 60 Tablet 5 02/17/2022 Active Additional Information Patient taking differently:10 mg Oral BID(AM/PM),Pt is taking one tablet by mouth daily., Reported on 05/24/2022 methIMAzole 5 MG Oral Tablet (Tapazole)Indicat ions:Graves [...] MG/DOSE) 2 MG/1.5ML Solution Pen-injector (Semaglutide(0.25 or 0.5MG/DOS))Indica tions:Insulin resistance Inject 0.25 mg under the skin once a week. 3 mL 3 11/23/2022 Active Ozempic (0.25 or 0.5 MG/DOSE) 2 MG/1.5ML Solution Pen-injector (Semaglutide(0.25 or 0.5MG/DOS))Indica tions:Insulin resistance Inject under the skin 0.25 mg once a week . 3 mL 3 06/15/2022 3 Discontinue d(Refill) documented as of this encounter (statuses as of 11/23/2022) Active Problems Problem Noted Date Family history of [place] (myocardial infarct ion) 02/18/2021 Hyperthyroidism 02/18/2021 Anxiety 02/18/2021 Graves disease 02/18/2021 Other allergic rhinitis 07/30/2001 Overview: ICD-10 update of inactive term Asthma with severity to be determined Overview: ICD-10 update of inactive term ATTN DEFIC NONHYPERACT 01/24/2000 EXT ASTHMA W-O STAT ASTH Dysmenorrhea documented as of this encounter (statuses as of 11/23/2022) Resolved Problems Problem Noted Date Resolved Date [...] as of this encounter (statuses as of 11/23/2022) Immunizations Name Administration Dates Next Due Seasonal [...] encounter Miscellaneous Notes * Telephone Encounter - Geovanni Stevens DO - 11/23/2022 3:02 PM ESTSigned Prescriptions: Disp Refills Ozempic (0.25 or 0.5 MG/DOSE) 2 MG/1.5ML S*3 mL 3 Sig: Inject 0.25 mg under the skin once a week. Authorizing Provider: GEOVANNI STEVENS * Telephone Encounter - Hector Sherman RN - 11/23/2022 1:48 PM ESTPending Prescriptions: Disp Refills Ozempic (0.25 or 0.5 MG/DOSE) 2 MG/1.5ML S*3 mL 3 Sig: Inject 0.25 mg under the skin once a week. * Telephone Encounter - Hector Sherman RN - 11/23/2022 1:47 PM EST Please see [facility] message. Did you pend patient's preferred pharmacy and medication before forwarding?yes Pharmacy: [id number] [address] [facility] Pending Prescriptions: Disp Refills Ozempic (0.25 or 0.5 MG/DOSE) 2 MG/1.5ML *3 mL 3 Sig: Inject 0.25 mg under the skin once a week. Last Visit: 06/15/2022 (in office), 03/31/2022 (telemedicine) Next Visit: Visit date not found If no future appointments scheduled, and last appointment is greater than a year ago, please schedule patient for a follow-up appointment Last date the medication was ordered: 06/15/2022 Is this request for a controlled substance?No Urine Drug Screen:No results found for this or any previous visit. Patient Phone Numbers Labs: Lab Results Component Value Date/Time CREAT 0.63 09/23/2020 12:00 AM CREAT 0.63 09/23/2020 12:00 AM POTASSIUM 4.3 09/23/2020 12:00 AM POTASSIUM 4.3 09/23/2020 12:00 AM TSH 2.12 09/16/2022 07:33 AM TSH 0.01 (A) 01/20/2021 12:00 AM ALT 51 (H) 03/23/2021 07:28 AM ALT 25 09/23/2020 12:00 AM HGBA1C 5.6 04/08/2022 07:10 AM HGBA1C 5.2 09/23/2020 12:00 AM HGBA1C 5.2 09/23/2020 12:00 AM documented in this encounter Plan of Treatment Upcoming Encounters Date Type Specialty Care Team Description 01/17/2023 Office Visit Gynecology Obstetrics Wendie, [facility] [address] [facility] [address] 03/09/2023 Telemedicine Endocrinology Francis Clark CRNP [address] [facility] [place] [address] Health Maintenance Due Date Last Done [...] as of this encounter Visit Diagnoses Diagnosis Insulin resistance Dysmetabolic Syndrome X documented in this encounter Care Teams Geospatial Program Management Officer Relationship Specialty Start Date End Date Geovanni Stevens DO [address] [place] [address] PCP - General Family Medicine 02/18/21 documented as of this encounter
--- OUTSIDE RECORDS SUMMARY | 2023-08-25 07:36 | External Medical Summary | Summary of Care ---
Author Name Unknown Organization [facility] Address [facility] [place] [address] Care Team Providers Care Club Attendant Name Role Phone Jethro Stevens DO Primary Care Provider Reason for Visit * Reason Onset Date Comments Medication Refill 12/28/2022 Encounter Details Date Type Department Care Team Description 12/28/2022 [address]ill [facility] [address] [place] [address] Jethro Stevens DO 132 [facility] [place] [address] Insulin resistance Allergies Active Allergy Reactions Severity Noted Date Comments Pollen 05/29/2013 Peanut Oil 05/29/2013 documented as of this encounter (statuses as of 12/30/2022) Medications Medication Sig Dispensed Refills Start Date End Date Status IBUPROFEN 600 MG PO TABS None Entered 0 Active SUMATRIPTAN SUCCINATE 50 MG PO TABSIndications:Mi graine with intractable migraine 1 TABLET 1 TIME ONLY,REPEAT AFTER 2 HR NEEDED 30 Tab 3 11/12/2013 Active hydrOXYzine HCl 50 MG Oral TabletIndications: Anxiety TAKE ONE TABLET BY MOUTH EVERY 6 HOURS NEEDED FOR ANXIETY 40 Tablet 3 10/29/2021 Active Albuterol Sulfate HFA 108 (90 Base) MCG/ACT Inhalation Aerosol Solution Inhale 2 Puffs by mouth every 4 hours as needed for Cough, Shortness of Breath or Wheezing. 18 g 3 11/26/2021 Active methIMAzole 5 MG Oral Tablet (Tapazole)Indicati ons:Graves disease TAKE ONE TABLET BY MOUTH EVERY [...] Active Propranolol HCl 10 MG Oral Tablet (Inderal)Indicatio ns:Anxiety,Graves disease,Hyperthyro idism TAKE ONE TABLET BY MOUTH TWICE A DAY (MORNING AND BEFORE BEDTIME) 60 Tablet 5 12/28/2022 Active Trulicity 0.75 MG/0.5ML Subcutaneous Solution Pen-injector (Dulaglutide)Indic ations:Insulin resistance Inject 0.75 mg under the skin once a week. 3 mL 6 12/30/2022 Active Trulicity 0.75 MG/0.5ML Subcutaneous Solution Pen-injector (Dulaglutide)Indic ations:Insulin resistance Inject 0.75 mg under the skin once a week. 3 mL 6 12/06/2022 3 Discontinue d(Refill) documented as of this encounter (statuses as of 12/30/2022) Active Problems Problem Noted Date Family history of [place] (myocardial infarct ion) 02/18/2021 Hyperthyroidism 02/18/2021 Anxiety 02/18/2021 Graves disease 02/18/2021 Other allergic rhinitis 07/30/2001 Overview: ICD-10 update of inactive term Asthma with severity to be determined Overview: ICD-10 update of inactive term ATTN DEFIC NONHYPERACT 01/24/2000 EXT ASTHMA W-O STAT ASTH Dysmenorrhea documented as of this encounter (statuses as of 12/30/2022) Resolved Problems Problem Noted Date Resolved Date [...] as of this encounter (statuses as of 12/30/2022) Immunizations Name Administration Dates Next Due Seasonal [...] encounter Miscellaneous Notes * Telephone Encounter - Erich Quevedo MD - 12/30/2022 4:19 PM EST Signed Prescriptions: Disp Refills Trulicity 0.75 MG/0.5ML Subcutaneous Solut*3 mL 6 Sig: Inject 0.75 mg under the skin once a week. Authorizing Provider: ERICH QUEVEDO * Telephone Encounter - CLINT Arrieta - 12/30/2022 2:45 PM EST Pending Prescriptions: Disp Refills Trulicity 0.75 MG/0.5ML Subcutaneous Solut*3 mL 6 Sig: Inject 0.75 mg under the skin once a week. * Telephone Encounter - EDE Tao - 12/28/2022 2:19 PM EST Did you pend patient's preferred pharmacy and medication before forwarding?yes [id number] [address] [facility] Pending Prescriptions: Disp Refills Trulicity 0.75 MG/0.5ML Subcutaneous Solu*3 mL 6 Sig: Inject 0.75 mg under the skin once a week. Last Visit: 06/15/2022 (in office), 03/31/2022 (telemedicine) Next Visit: Visit date not found If no future appointments scheduled, and last appointment is greater than a year ago, please schedule patient for a follow-up appointment Last date the medication was ordered: 12/06/2022 Is this request for a controlled substance?No Urine Drug Screen:No results found for this or any previous visit. Patient Phone Numbers Labs: Lab Results Component Value Date/Time CREAT 0.63 09/23/2020 12:00 AM CREAT 0.63 09/23/2020 12:00 AM POTASSIUM 4.3 09/23/2020 12:00 AM POTASSIUM 4.3 09/23/2020 12:00 AM TSH 2.07 12/01/2022 06:55 AM TSH 0.01 (A) 01/20/2021 12:00 AM ALT 51 (H) 03/23/2021 07:28 AM ALT 25 09/23/2020 12:00 AM HGBA1C 5.6 04/08/2022 07:10 AM HGBA1C 5.2 09/23/2020 12:00 AM HGBA1C 5.2 09/23/2020 12:00 AM documented in this encounter Plan of Treatment Upcoming Encounters Date Type Specialty Care Team Description 01/17/2023 Office Visit Gynecology Obstetrics Bzik, Nadia Desai MD [address] [place] [address] 03/09/2023 Telemedicine Endocrinology Francis Clark CRNP [address] [facility] [place] [address] Health Maintenance Due Date Last [...] X documented in this encounter Care Teams Club Attendant Relationship Specialty Start Date End Date Jethro Stevens, [address] [place] [address] PCP - General Family Medicine 02/18/21 documented as of this encounter
--- OUTSIDE RECORDS SUMMARY | 2023-08-25 07:36 | External Medical Summary | Summary of Care ---
Author Name Unknown Organization [place] [address] Care Team Providers Care Escort Patients Name Role Phone Jethro Stevens DO Primary Care Provider Reason for Referral * Evaluate & Treat - Unlimited Visits (Within 3 days (urgent)) - Pending Review Specialty Diagnoses / Procedures Referred By Sharlene rivera Referred To Contact Optometry Diagnoses Vision problems Jethro Stevens DO [address] [place] [address] Referral ID Status Reason Start Date Expiration Date Visits Requested Visits Authorized [id number] Pending Review Specialty Services Required 2 [phone] Question Answer Referral Priority Within 3 days (urgent) Comments [facility] Reason for Visit * Reason Onset Date Comments Referral 11/03/2022 Encounter Details Date Type Department Care Team Description 11/03/[address] [facility] [address] [place] [address] Jethro Stevens DO [address] [place] [address] Referral Allergies Active Allergy Reactions Severity Noted Date Comments Pollen 05/29/2013 Peanut Oil 05/29/2013 documented as of this encounter (statuses as of 11/08/2022) Medications Medication Sig Dispensed Refills Start Date [...] as of this encounter (statuses as of 11/08/2022) Active Problems Problem Noted Date Family history of [place] (myocardial infarct ion) 02/18/2021 Hyperthyroidism 02/18/2021 Anxiety 02/18/2021 Graves disease 02/18/2021 Other allergic rhinitis 07/30/2001 Overview: ICD-10 update of inactive term Asthma with severity to be determined Overview: ICD-10 update of inactive term ATTN DEFIC NONHYPERACT 01/24/2000 EXT ASTHMA W-O STAT ASTH Dysmenorrhea documented as of this encounter (statuses as of 11/08/2022) Resolved Problems Problem Noted Date Resolved Date [...] as of this encounter (statuses as of 11/08/2022) Immunizations Name Administration Dates Next Due Seasonal [...] Telephone Encounter - Daria Zimmerman LPN - 11/08/2022 11:18 AM EST Faxed referral to their office at [phone]. * Telephone Encounter - Daria Zimmerman LPN - 11/08/2022 10:26 AM EST Referral was signed. Attempted to contact [facility] in [place] at [phone] to have fax number, line busy. Will retry. * Telephone Encounter - Jethro Stevens DO - 11/03/2022 2:13 PM EST Unsure - typically helpful to have dx at point of intake but we can do generic dx code * Telephone Encounter - Comfort Britt RN - 11/03/2022 12:01 PM EST Is this to be associated with grave's disease? * Telephone Encounter - EDE Celeste - 11/03/2022 10:33 AM EST Has the patient been seen for this problem? (Y/N)?: yes If No, an appt needs to be scheduled before a referral will be placed Patient Name: Starr Dove Patient Primary care provider: Jethro Stevens, DO Does this need to be an insurance referral (Y/N)?: yes If Yes, does the insurance referral need to be placed into the [employer] system? Name of preferred specialist: Optomertrist Type of specialist: [facility] Location of specialist: Specialist's Phone #: [facility] Specialist's Fax #: unsure Reason for visit: Pt needs to be seen Date of visit: n/a documented in this encounter Plan of Treatment Upcoming Encounters Date Type Specialty Care Team Description 03/09/2023 Telemedicine Endocrinology Francis Clark CRNP [address] [facility] [place] [address] Scheduled Referrals Name Type Priority Associated Diagnoses Orde r Schedule OPTOMETRY REFERRAL OP Referral Within 3 days (urgent) Vision problems Ordered: 11/03/2022 Health Maintenance Due Date Last Done Comments [...] as of this encounter Visit Diagnoses Diagnosis Vision problems- Primary Problems with sight documented in this encounter Care Teams Escort Patients Relationship Specialty Start Date End Date Jethro Stevens DO [address] [place] [address] PCP - General Family Medicine 02/18/21 documented as of this encounter
--- OUTSIDE RECORDS SUMMARY | 2023-08-25 07:36 | External Medical Summary | Summary of Care ---
Author Name Unknown Organization [facility] [place] [address] Care Team Providers Care Solid Waste Management Engineer Name Role Phone Rodney Jethro Floresrip Primary Care Provider Reason for Visit * Reason Onset Date Comments Appointment 11/15/2022 Encounter Details Date Type Department Care Team Description 11/15/2022 Telephone Gynecology/Obstetrics [facility] [address] [facility] [place] [address] Diann Spain CRNP [address] [facility] [place] [address] Appointment Allergies Active Allergy Reactions Severity Noted Date Comments Pollen 05/29/2013 Peanut Oil 05/29/2013 documented as of this encounter (statuses as of 11/15/2022) Medications Medication Sig Dispensed Refills Start Date [...] as of this encounter (statuses as of 11/15/2022) Active Problems Problem Noted Date Family history of [place] (myocardial infarct ion) 02/18/2021 Hyperthyroidism 02/18/2021 Anxiety 02/18/2021 Graves disease 02/18/2021 Other allergic rhinitis 07/30/2001 Overview: ICD-10 update of inactive term Asthma with severity to be determined Overview: ICD-10 update of inactive term ATTN DEFIC NONHYPERACT 01/24/2000 EXT ASTHMA W-O STAT ASTH Dysmenorrhea documented as of this encounter (statuses as of 11/15/2022) Resolved Problems Problem Noted Date Resolved Date [...] as of this encounter (statuses as of 11/15/2022) Immunizations Name Administration Dates Next Due Seasonal [...] 9:13 AM EST Pt schedule with me / - per appt note, wants to discuss hysterectomy. Please have her reschedule w/physician. KIRSTEN Reed documented in this encounter Plan of Treatment Upcoming Encounters Date Type Specialty Care Team Description 01/17/2023 Office Visit Gynecology Obstetrics Bzconcha, Nadia Desai MD [address] [place] [address] 03/09/2023 Telemedicine Endocrinology Francis Clark CRNP [address] [place] [address] Health Maintenance Due Date Last [...] filedocumented as of this encounter Care Teams Solid Waste Management Engineer Relationship Specialty Start Date End Date Jethro Stevens DO [address] [facility] [place] [address] PCP - General Family Medicine 02/18/21 documented as of this encounter
--- OUTSIDE RECORDS SUMMARY | 2023-08-25 07:36 | External Medical Summary ---
Author Name Unknown Address Unknown Organization K01:[facility] [address] [place] [address] Laboratory Report Ordering Provider Test Date Status MAGALY ESCAMILLA 12/01/2022 06:55:52 Final Observation Date Value Abnormality Reference (Units ) Status T3, Free 12/01/2022 06:55:52 3.1 2.5-4.3 (p g/mL) Final Performing Location [facility] [address] [place] [address]
--- OUTSIDE RECORDS SUMMARY | 2023-08-25 07:36 | External Medical Summary | Summary of Care ---
Author Name Unknown Organization [place] [address] Care Team Providers Care Instructor Private Name Role Phone Geovanni Stevens DO Primary Care Provider Reason for Visit * Reason Onset Date Comments Pre Cert/Prior Auth 11/30/2022 Encounter Details Date Type Department Care Team Description 11/30/2022 Telephone Family Practice [facility] [address] [place] [address] Geovanni Stevens DO 132 [facility] [place] [address] Pre Cert/Prior Auth Allergies Active Allergy Reactions Severity Noted Date Comments Pollen 05/29/2013 Peanut Oil 05/29/2013 documented as of this encounter (statuses as of 12/06/2022) Medications Medication Sig Dispensed Refills Start Date [...] the morning. 30 Capsule 11 07/26/2022 Active Trulicity 0.75 MG/0.5ML Subcutaneous Solution Pen-injector (Dulaglutide)Abimbola cations:Insulin resistance Inject 0.75 mg under the skin once a week. 3 mL 6 12/06/2022 Active Ozempic (0.25 or 0.5 MG/DOSE) 2 MG/1.5ML Solution Pen-injector (Semaglutide(0.25 or 0.5MG/DOS))Indica tions:Insulin resistance Inject 0.25 mg under the skin once a week. 3 mL 3 11/23/2022 12/06/19 23 Discontinued documented as of this encounter (statuses as of 12/06/2022) Active Problems Problem Noted Date Family history of [place] (myocardial infarct ion) 02/18/2021 Hyperthyroidism 02/18/2021 Anxiety 02/18/2021 Graves disease 02/18/2021 Other allergic rhinitis 07/30/2001 Overview: ICD-10 update of inactive term Asthma with severity to be determined Overview: ICD-10 update of inactive term ATTN DEFIC NONHYPERACT 01/24/2000 EXT ASTHMA W-O STAT ASTH Dysmenorrhea documented as of this encounter (statuses as of 12/06/2022) Resolved Problems Problem Noted Date Resolved Date [...] as of this encounter (statuses as of 12/06/2022) Immunizations Name Administration Dates Next Due DT [...] encounter Miscellaneous Notes * Addendum Note - Geovanni Stevens DO - 12/06/2022 5:00 PM ESTAddended by: GEOVANNI STEVENS on: 12/06/2022 05:00 PM Modules accepted: Orders * Telephone Encounter - Daria Zimmerman LPN [...] along with last office notes faxed to [facility] at [phone] with receipt confirmation. Contacted pt to notify [...] Visit Gynecology Obstetrics Nadia Pressley MD [address] [place] [address] 03/09/2023 Telemedicine Endocrinology Francis Clark CRNP [address] [facility] [place] [address] Health Maintenance Due Date Last Done Comments [...] of this encounter Visit Diagnoses Diagnosis Insulin resistance- Primary Dysmetabolic Syndrome X documented in this encounter Care Teams Instructor Private Relationship Specialty Start Date End Date Geovanni Stevens DO [address] [place] [address] PCP - General Family Medicine 02/18/21 documented as of this encounter
--- OUTSIDE RECORDS SUMMARY | 2023-08-25 07:36 | External Medical Summary | Summary of Care ---
Author Name Unknown Organization [place] [address] Care Team Providers Care Shop Welder Name Role Phone Jethro Stevens DO Primary Care Provider Reason for Visit * Reason Comments Outpatient Testing Encounter Details Date Type Department Care Team Description 12/01/2022 Laboratory Laboratory, [facility] [address] [facility] [place] [address] [facility] 132 [place] [address] Graves disease Allergies Active Allergy Reactions Severity Noted Date Comments Pollen 05/29/2013 Peanut Oil 05/29/2013 documented as of this encounter (statuses as of 12/01/2022) Medications Medication Sig Dispensed Refills Start Date [...] as of this encounter (statuses as of 12/01/2022) Active Problems Problem Noted Date Family history of [place] (myocardial infarct ion) 02/18/2021 Hyperthyroidism 02/18/2021 Anxiety 02/18/2021 Graves disease 02/18/2021 Other allergic rhinitis 07/30/2001 Overview: ICD-10 update of inactive term Asthma with severity to be determined Overview: ICD-10 update of inactive term ATTN DEFIC NONHYPERACT 01/24/2000 EXT ASTHMA W-O STAT ASTH Dysmenorrhea documented as of this encounter (statuses as of 12/01/2022) Resolved Problems Problem Noted Date Resolved Date [...] as of this encounter (statuses as of 12/01/2022) Immunizations Name Administration Dates Next Due Seasonal [...] Visit Gynecology Obstetrics Nadia Pressley MD [address] [place] [address] 03/09/2023 Telemedicine Endocrinology Francis Clark CRNP [address] [facility] [place] [address] Pending Results Name Type Priority Associated Diagnoses Date /Time TSH Lab Routine Graves disease 12/01/2022 6:55 AM EST T4, FREE Lab Routine Graves disease 12/01/2022 6:55 AM EST T3, FREE Lab Routine Graves disease 12/01/2022 6:55 AM EST Health Maintenance Due Date Last Done Comments [...] storm documented in this encounter Care Teams Shop Welder Relationship Specialty Start Date End Date Jethro Stevens DO [address] [address] PCP - General Family Medicine 02/18/21 documented as of this encounter
--- OUTSIDE RECORDS SUMMARY | 2023-08-25 07:36 | External Medical Summary ---
Author Name Unknown Address Unknown Organization K01:[facility] [address] [facility] [address] [place] [address] Laboratory Report Ordering Provider Test Date Status MAGALY ESCAMILLA 12/01/2022 06:55:52 Final Observation Date Value Abnormality Reference (Units ) Status TSH 12/01/2022 06:55:52 2.07 0.27-4.20 (uIU/mL) Final Performing Location [facility] [address] [place] [address]
--- OUTSIDE RECORDS SUMMARY | 2023-08-25 07:36 | External Medical Summary | Summary of Care ---
Author Name Unknown Organization [place] [address] Care Team Providers Care Hair Assistant Name Role Phone Negro Stevensr Reji Primary Care Provider Encounter Details Date Type Department Care Team Description 11/28/2022 Orders Only Outcomes Research Department [address] [place] [address] Sisi Barillas [facility] Other*[id number] Allergies Active Allergy Reactions Severity Noted Date Comments Pollen 05/29/2013 Peanut Oil 05/29/2013 documented as of this encounter (statuses as of 11/28/2022) Medications Medication Sig Dispensed Refills Start Date [...] as of this encounter (statuses as of 11/28/2022) Active Problems Problem Noted Date Family history of [place] (myocardial infarct ion) 02/18/2021 Hyperthyroidism 02/18/2021 Anxiety 02/18/2021 Graves disease 02/18/2021 Other allergic rhinitis 07/30/2001 Overview: ICD-10 update of inactive term Asthma with severity to be determined Overview: ICD-10 update of inactive term ATTN DEFIC NONHYPERACT 01/24/2000 EXT ASTHMA W-O STAT ASTH Dysmenorrhea documented as of this encounter (statuses as of 11/28/2022) Resolved Problems Problem Noted Date Resolved Date Encounter for supervision of other normal pregna ncy 05/29/2013 10/10/2013 Overview: Transfer of Care; Records received 02/22/13: glucose 95; Hep BsAg neg; Hep C ab-nonreactive; HIV nonreactive; RPR nonreactive; rubella immune; O+, antibody negative 03/05/13- chlamydia negative, gonorrhea negative Patient received flu vaccine. 08/08/2013 Charlee Souza RN GBS Negative KIRSTEN Rios, [facility] 09/30/2013 ICD-10 update of inactive term documented as of this encounter (statuses as of 11/28/2022) Immunizations Name Administration Dates Next Due Seasonal [...] Visit Gynecology Obstetrics Nadia Pressley MD [address] [place] [address] 03/09/2023 Telemedicine Endocrinology Francis Clark CRNP [address] [place] [address] Scheduled Orders Name Type Priority Associated Diagnoses Orde r Schedule MYCODE INITIAL ADULT Lab Routine [facility] Other*[id number] Expected: 11/28/2022 (Approximate), Expires: 12/18/2023 Health Maintenance Due Date Last Done Comments [...] this encounter Visit Diagnoses Diagnosis [facility] Other*[id number] documented in this encounter Care Teams Hair Assistant Relationship Specialty Start Date End Date Jethro Stevens, [address] [address] PCP - General Family Medicine 02/18/21 documented as of this encounter
--- OUTSIDE RECORDS SUMMARY | 2023-08-25 07:36 | External Medical Summary | Summary of Care ---
Author Name Unknown Organization [place] [address] Care Team Providers Care Bull Driver Name Role Phone Jethro Stevens DO Primary Care Provider Reason for Visit * Reason Onset Date Comments FYI 11/02/2022 Encounter Details Date Type Department Care Team Description 11/02/2022 Telephone Family Practice [facility] [address] [place] [address] Jethro Stevens DO [address] [place] [address] FYI Allergies Active Allergy Reactions Severity Noted [...] Problems Problem Noted Date Family history of [place] (myocardial infarct ion) [...] encounter Miscellaneous Notes * Telephone Encounter - Comfort Britt RN - 11/02/2022 7:41 PM EST Date was changed on original form. Additional documentation on form stating that it was changed per Dr Stevens's direction. Faxed back with additional notation * Telephone Encounter - EDE Singh - 11/02/2022 3:13 PM EST FMLS form was faxed with date of 11/01/22. Please refax form with corrected date of 11/04/22 * Telephone Encounter - EED Samuel - 11/02/2022 1:49 PM EST Appt cancelled. * Telephone Encounter - Comfort Britt RN - 11/02/2022 1:42 PM EST Called pt. [facility] form faxed to [facility]. Copy sent to scan .Original mailed to pt's address. Pt does not need appt tomorrow. Please cancel. * Telephone Encounter - EDE Navas - 11/02/2022 11:38 AM EST Called to confirm tomorrows appt with patient. She needs excuse that she is cleared to go back to work and the [place] paperwork filled out and faxed over to [facility] tomorrow. She said she sent the attachment over in [employer]. documented in this encounter Plan of Treatment Upcoming Encounters Date Type Specialty Care Team Description 03/09/2023 Telemedicine Endocrinology Francis Clark CRNP [address] [place] [address] Health Maintenance Due Date Last [...] filedocumented as of this encounter Care Teams Bull Driver Relationship Specialty Start Date End Date Jethro Stevens DO [address] [place] [address] PCP - General Family Medicine 02/18/21 documented as of this encounter
--- OUTSIDE RECORDS SUMMARY | 2023-08-25 07:36 | External Medical Summary ---
Author Name Unknown Address Unknown Organization K01:[facility] - [address] [place] [address] Laboratory Report Ordering Provider Test Date Status MAGALY ESCAMILLA 12/01/2022 06:55:52 Final Observation Date Value Abnormality Reference (Units ) Status T4, Free 12/01/2022 06:55:52 0.9 0.9-1.7 (n g/dL) Final Performing Location [facility] - [address] [place] [address]
--- OUTSIDE RECORDS SUMMARY | 2023-08-25 07:36 | External Medical Summary | Summary of Care ---
Author Name Unknown Organization [place] [address] Care Team Providers Care Pass Worker Name Role Phone Geovanni Stevens DO Primary Care Provider Reason for Visit * Reason Comments eRx-Medication Refill Encounter Details Date Type Department Care Team Description 12/27/2022 Refill Family Practice [facility] [address] [place] [address] Geovanni Stevens DO 132 [facility] [place] [address] Anxiety; Graves disease; Hyperthyroidism Allergies Active Allergy Reactions Severity Noted Date Comments Pollen 05/29/2013 Peanut Oil 05/29/2013 documented as of this encounter (statuses as of 12/28/2022) Medications Medication Sig Dispensed Refills Start Date [...] a week. 3 mL 6 12/06/2022 Active Propranolol HCl 10 MG Oral Tablet (Inderal)Indicati ons:Anxiety,Grave s disease,Hyperthyr oidism TAKE ONE TABLET BY MOUTH TWICE A DAY (MORNING AND BEFORE BEDTIME) 60 Tablet 5 12/28/2022 Active Propranolol HCl 10 MG Oral Tablet (Inderal)Indicati ons:Anxiety,Grave s disease,Hyperthyr oidism Take by mouth 1 Tablet in the morning AND 1 Tablet before bedtime. 60 Tablet 5 02/17/2022 12/28/19 23 Discontinued documented as of this encounter (statuses as of 12/28/2022) Active Problems Problem Noted Date Family history of [place] (myocardial infarct ion) 02/18/2021 Hyperthyroidism 02/18/2021 Anxiety 02/18/2021 Graves disease 02/18/2021 Other allergic rhinitis 07/30/2001 Overview: ICD-10 update of inactive term Asthma with severity to be determined Overview: ICD-10 update of inactive term ATTN DEFIC NONHYPERACT 01/24/2000 EXT ASTHMA W-O STAT ASTH Dysmenorrhea documented as of this encounter (statuses as of 12/28/2022) Resolved Problems Problem Noted Date Resolved Date [...] as of this encounter (statuses as of 12/28/2022) Immunizations Name Administration Dates Next Due Seasonal [...] encounter Miscellaneous Notes * Telephone Encounter - Jessica High, [facility] - 12/28/2022 1:10 PM ESTSigned Prescriptions: Disp Refills Propranolol HCl 10 MG Oral Tablet (Inderal)60 Tab*5 Sig: TAKE ONE TABLET BY MOUTH TWICE A DAY (MORNING AND BEFORE BEDTIME)Authorizing Provider: GEOVANNI STEVENS User: JESSICA HIGH documented in this encounter Plan of Treatment Upcoming Encounters Date Type Specialty Care Team Description 01/17/2023 Office Visit Gynecology Obstetrics Nadia Pressley MD [address] [facility] [place] [id number] 03/09/2023 Telemedicine Endocrinology Francis Clark CRNP [address] [place] [address] Health Maintenance Due Date Last [...] as of this encounter Visit Diagnoses Diagnosis Anxiety Anxiety state, unspecified Graves disease Toxic diffuse goiter without mention of thyrotoxic crisis or storm Hyperthyroidism Thyrotoxicosis without mention of goiter or other cause, without mention of thyrotoxic crisis or storm documented in this encounter Care Teams Pass Worker Relationship Specialty Start Date End Date Geovanni Stevens DO [address] [place] [address] PCP - General Family Medicine 02/18/21 documented as of this encounter
--- OUTSIDE RECORDS SUMMARY | 2023-08-25 07:36 | External Medical Summary | Summary of Care ---
Author Name Unknown Organization [place] [address] Care Team Providers Care Environmental Protection Specialist Name Role Phone Rodney Jethro Floresrip Primary Care Provider Reason for Visit * Reason Onset Date Comments Order Request 01/17/2023 Encounter Details Date Type Department Care Team Description 01/17/2023 Telephone Gynecology/Obstetrics [facility] [address] [facility] [place] [address] Diann Spain CRNP [address] [place] [address] Order Request Allergies Active Allergy Reactions Severity Noted Date Comments Pollen 05/29/2013 Peanut Oil 05/29/2013 documented as of this encounter (statuses as of 01/17/2023) Medications Medication Sig Dispensed Refills Start Date [...] as of this encounter (statuses as of 01/17/2023) Active Problems Problem Noted Date Family history of [place] (myocardial infarct ion) 02/18/2021 Hyperthyroidism 02/18/2021 Anxiety 02/18/2021 Graves disease 02/18/2021 Other allergic rhinitis 07/30/2001 Overview: ICD-10 update of inactive term Asthma with severity to be determined Overview: ICD-10 update of inactive term ATTN DEFIC NONHYPERACT 01/24/2000 EXT ASTHMA W-O STAT ASTH Dysmenorrhea documented as of this encounter (statuses as of 01/17/2023) Resolved Problems Problem Noted Date Resolved Date [...] as of this encounter (statuses as of 01/17/2023) Immunizations Name Administration Dates Next Due Seasonal [...] Telephone Encounter - Renay Hare RN - 01/17/2023 9:32 AM EST Order pended for dating US for NOB. * Telephone Encounter - EDE Schmitz - 01/17/2023 9:17 AM EST Pt has NOB 02/01. Please place order for u/s. documented in this encounter Plan of Treatment Upcoming Encounters Date Type Specialty Care Team Description 01/26/2023 Nurse Only Gynecology Obstetrics Gw, Nurse Truck Spotter New [address] [place] [address] 02/01/2023 Imaging Radiology 02/01/2023 Office Visit Gynecology Obstetrics Backer, KIRSTEN Royal 132 [facility] [place] [address] 03/09/2023 Telemedicine Endocrinology Francis Clark CRNP [address] [facility] [address] Scheduled Orders Name Type Priority Associated Diagnoses Orde r Schedule US PELVIS TRANS-VAGINAL OB Medical Imaging Routine at early stage Ordered: 01/17/2023 Health Maintenance Due Date Last Done Comments [...] as of this encounter Visit Diagnoses Diagnosis at early stage- Primary documented in this encounter Care Teams Environmental Protection Specialist Relationship Specialty Start Date End Date Jethro Stevens DO [address] [place] [address] PCP - General Family Medicine 02/18/21 documented as of this encounter
--- OUTSIDE RECORDS SUMMARY | 2023-08-25 07:37 | External Medical Summary | Summary of Care ---
Author Name Unknown Organization [facility] [place] [address] Care Team Providers Care Spar Machine Operator Name Role Phone Jethro Stevens DO Primary Care Provider Reason for Visit * Reason Onset Date Comments FYI 11/02/2022 Encounter Details Date Type Department Care Team Description 11/02/2022 Telephone Family Practice [facility] [address] [place] [address] Jethro Stevens DO [address] [place] [address] FYI Allergies Active Allergy Reactions Severity Noted [...] Problems Problem Noted Date Family history of [place] (myocardial infarct ion) [...] EST Called pt. FMLA form faxed to [facility]. Copy sent to scan .Original mailed to pt's address. Pt does not need appt tomorrow. Please cancel. * Telephone Encounter - EDE Navas - 11/02/2022 11:38 AM EST Called to confirm tomorrows appt with patient. She needs excuse that she is cleared to go back to work and the [facility] paperwork filled out and faxed over to [facility] tomorrow. She said she sent the attachment over in [employer]. documented in this encounter Plan of Treatment Upcoming Encounters Date Type Specialty Care Team Description 11/03/2022 Office Visit Family Medicine Jethro Stevens, 132 [facility] [place] [address] 03/09/2023 Telemedicine Endocrinology Francis Clark CRNP [address] [facility] [address] Health Maintenance Due Date Last Done [...] filedocumented as of this encounter Care Teams Spar Machine Operator Relationship Specialty Start Date End Date Jethro Stevens, [address] [facility] [place] [phone] PCP - General Family Medicine 02/18/21 documented as of this encounter
--- OUTSIDE RECORDS SUMMARY | 2023-08-25 07:37 | External Medical Summary | Summary of Care ---
Author Name Unknown Organization [place] [address] Care Team Providers Care Supervisor Furnace Process Name Role Phone Jethro Stevens DO Primary Care Provider Reason for Visit * Reason Comments Outpatient Testing Encounter Details Date Type Department Care Team Description 09/16/2022 Laboratory Laboratory, [facility] [address] [facility] [address] [facility] 132 [place] [address] Graves disease Allergies Active Allergy Reactions Severity Noted Date Comments Pollen 05/29/2013 Peanut Oil 05/29/2013 documented as of this encounter (statuses as of 09/16/2022) Medications Medication Sig Dispensed Refills Start Date [...] 5 02/17/2022 Active Additional Information Patient taking differently: 10 mg Oral BID, Pt is taking one tablet by mouth daily., [...] as of this encounter (statuses as of 09/16/2022) Active Problems Problem Noted Date Family history of [place] (myocardial infarct ion) 02/18/2021 Hyperthyroidism 02/18/2021 Anxiety 02/18/2021 Graves disease 02/18/2021 Other allergic rhinitis 07/30/2001 Overview: ICD-10 update of inactive term Asthma with severity to be determined Overview: ICD-10 update of inactive term ATTN DEFIC NONHYPERACT 01/24/2000 EXT ASTHMA W-O STAT ASTH Dysmenorrhea documented as of this encounter (statuses as of 09/16/2022) Resolved Problems Problem Noted Date Resolved Date Encounter for supervision of other normal pregna ncy 05/29/2013 10/10/2013 Overview: Transfer of Care; Records received 4/5/13: glucose 95; Hep BsAg neg; Hep C ab-nonreactive; HIV nonreactive; RPR nonreactive; rubella immune; O+, antibody negative 03/05/13- chlamydia negative, gonorrhea negative Patient received flu vaccine. 08/08/2013 Charlee Souza RN GBS Negative KIRSTEN Rios, CNM 09/30/2013 ICD-10 update of inactive term documented as of this encounter (statuses as of 09/16/2022) Immunizations Name Administration Dates Next Due DT [...] Tobacco Use Types Packs/Day Years Used Date Never Smoker Smokeless Tobacco: Never Used Alcohol Use Standard Drinks/Week Comments Yes 0 (1 standard drink = 0.6 oz pur e alcohol) [facility] Alcohol Habits Answer Date Recorded How often do you have a drink containing alcohol ? Not asked How many drinks containing a lcohol do you have on a typical day when you are drinking? Not asked How often do you have six or more drinks on one occasion? Not asked Comment: [facility] 06/15/2022 Food Insecurity Answer Date Recorded Within the [...] Team Description 03/09/2023 Telemedicine Endocrinology Francis Clark KIRSTEN [address] [place] [address] Pending Results Name Type Priority Associated Diagnoses Date /Time TSH Lab Routine Graves disease 09/16/2022 7:33 AM EDT T4, FREE Lab Routine Graves disease 09/16/2022 7:33 AM EDT T3, FREE Lab Routine Graves disease 09/16/2022 7:33 AM EDT Health Maintenance Due Date Last Done Comments COVID-19 Vaccine (#1) 03/05/1986 Pneumococcal Vaccine: Pediatrics (0 to 5 Years) and At-Risk Patients (6 to 64 Years) (1 - PCV) 1991 Hepatitis C Screening 2003 PAP SMEAR-EVERY 3 YRS,AGES 21-65 2006 Depression Screening, Annual for Pts 12 and Over 09/23/2021 09/23/2020 Influenza Vaccine (FLU shot) (#1) 2022 09/23/2020, 08/08/2013 Diabetes Screening 04/08/2025 04/08/2022, 0 06/19/2021, 03/23/2021, Additional history exists DTaP,Tdap,and Td Vaccines (7 - Td or Tdap) 10/31/2026 10/31/2016, 07/04/1997, 01/24/1991, Additional history exists Hepatitis B Completed 02/25/1997, 08/21, 07/02/1996 GARDASIL-HPV IMMUNIZATION SERIES Aged Out No longer eligible based on patient's age to complete this topic MENINGOCOCCAL (MENACTRA/MENVEO) Aged Out No longer eligible based on patient's age to complete this topic documented as of this encounter Implants Not on filedocumented as of this encounter Visit Diagnoses Diagnosis Graves disease Toxic diffuse goiter without mention of thyrotoxic crisis or storm documented in this encounter Advance Directives Documents on File Type Date Recorded Patient Rehab Office Coordinator Expl 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 Advanced Directive Advanced Directive Advanced Directive Advanced Directive Advanced Directive Advanced Directive Advanced Directive Advanced Directive Advanced Directive Advanced Directive Advanced Directive Advanced Directive Advanced Directive Advanced Directive Advanced Directive Advanced Directive Advanced Directive Advanced Directive Advanced Directive Advanced Directive Advanced Directive Advanced Directive Advanced Directive Advanced Directive Advanced Directive Advanced Directive Advanced Directive Advanced Directive Advanced Directive Advanced Directive Advanced Directive Advanced Directive Advanced Directive Advanced Directive Advanced Directive Advanced Directive Advanced Directive Advanced Directive Advanced Directive Care Teams Supervisor Furnace Process Relationship Specialty Start Date End Date Jethro Stevens DO [address] [place] [address] PCP - General Family Medicine 02/18/21 documented as of this encounter
--- OUTSIDE RECORDS SUMMARY | 2023-08-25 07:37 | External Medical Summary | Summary of Care ---
Author Name Unknown Organization [facility] Address [place] [address] Care Team Providers Care Auto Claim Representative Name Role Phone Jethro Stevens Primary Care Provider Encounter Details Date Type Department Care Team Description 10/29/2022 Result Scan Unspecified Department <No scans attached> Allergies Active Allergy Reactions Severity Noted Date Comments Pollen 05/29/2013 Peanut Oil 05/29/2013 documented as of this encounter (statuses as of 11/01/2022) Medications Medication Sig Dispensed Refills Start Date [...] as of this encounter (statuses as of 11/01/2022) Active Problems Problem Noted Date Family history of [place] (myocardial infarct ion) 02/18/2021 Hyperthyroidism 02/18/2021 Anxiety 02/18/2021 Graves disease 02/18/2021 Other allergic rhinitis 07/30/2001 Overview: ICD-10 update of inactive term Asthma with severity to be determined Overview: ICD-10 update of inactive term ATTN DEFIC NONHYPERACT 01/24/2000 EXT ASTHMA W-O STAT ASTH Dysmenorrhea documented as of this encounter (statuses as of 11/01/2022) Resolved Problems Problem Noted Date Resolved Date Encounter for supervision of other normal pregna ncy 05/29/2013 10/10/2013 Overview: Transfer of Care; Records received 02/22/13: glucose 95; Hep BsAg neg; Hep C ab-nonreactive; HIV nonreactive; RPR nonreactive; rubella immune; O+, antibody negative 03/05/13- chlamydia negative, gonorrhea negative Patient received flu vaccine. 08/08/2013 Charlee L Green, RN GBS Negative KIRSTEN Rios, CNM 09/30/2013 ICD-10 update of inactive term documented as of this encounter (statuses as of 11/01/2022) Immunizations Name Administration Dates Next Due Seasonal [...] Telemedicine Endocrinology Francis Clark CRNP [address] [place] [address] Health Maintenance Due Date Last Done Comments [...] Date/Time Associated Diagnosis Comments OUTSIDE LAB RESULTS 10/29/2022 documented in this encounter Results * OUTSIDE LAB RESULTS (10/29/2022) 10/29/2022 No Physician Data Unknown LABORATORY documented in this encounter Care Teams Auto Claim Representative Relationship Specialty Start Date End Date Jethro Stevens DO [address] [facility] [place] [address] PCP - General Family Medicine 02/18/21 documented as of this encounter
--- OUTSIDE RECORDS SUMMARY | 2023-08-25 07:37 | External Medical Summary ---
Author Name Unknown Address Unknown Organization K01:[facility] [address] [place] [address] Laboratory Report Ordering Provider Test Date Status MAGALY ESCAMILLA 09/16/2022 07:33:42 Final Observation Date Value Abnormality Reference (Units ) Status T4, Free 09/16/2022 07:33:42 1.0 0.9-1.7 (n g/dL) Final Performing Location [facility] [address] [place] [address]
--- OUTSIDE RECORDS SUMMARY | 2023-08-25 07:37 | External Medical Summary | Summary of Care ---
Author Name Unknown Organization [facility] Address [facility] [place] [address] Care Team Providers Care Store Gift Wrap Associate Name Role Phone Jethro Stevens DO Primary Care Provider Encounter Details Date Type Department Care Team Description 11/01/2022 Orders Only Family [facility] [address] [place] [address] Jethro Stevens DO [address] [place] [address] Allergies Active Allergy Reactions Severity Noted Date [...] Problems Problem Noted Date Family history of [place] (myocardial infarct ion) 02/18/2021 Hyperthyroidism 02/18/2021 Anxiety [...] Description 11/03/2022 Office Visit Family Medicine Jethro Stevens DO [address] [facility] [place] [address] 03/09/2023 Telemedicine Endocrinology Francis Clark CRNP [address] [place] [facility] [place] [address] Health Maintenance Due Date Last Done [...] Procedure Name Priority Date/Time Associated Diagnosis Comments XR CHEST 2 VIEWS Routine 10/29/2022 documented in this encounter Results * XR CHEST 2 VIEWS (10/29/2022) Anatomical Region Laterality Modality Chest Other 10/29/2022 Desmond Velázquez MD RADIOLOGY (RAD GENE RAL) documented in this encounter Care Teams Store Gift Wrap Associate Relationship Specialty Start Date End Date Jethro Stevens DO [address] [place] [address] PCP - General Family Medicine 02/18/21 documented as of this encounter
--- OUTSIDE RECORDS SUMMARY | 2023-08-25 07:37 | External Medical Summary ---
Author Name Unknown Address Unknown Organization K01:[facility] [address] [facility] [address] [place] [address] Laboratory Report Ordering Provider Test Date Status MAGALY ESCAMILLA 09/16/2022 07:33:42 Final Observation Date Value Abnormality Reference (Units ) Status TSH 09/16/2022 07:33:42 2.12 0.27-4.20 (uIU/mL) Final Performing Location [facility] [address] [place] [address]
--- OUTSIDE RECORDS SUMMARY | 2023-08-25 07:37 | External Medical Summary | Summary of Care ---
Author Name Unknown Organization [place] [address] Care Team Providers Care Human Resources Designate Name Role Phone Rodney Jethro Floresrip Primary Care Provider Reason for Visit * Reason Comments Hyperthyroidism Encounter Details Date Type Department Care Team Description 09/05/2022 [facility] Endocrinology, [place] [address], [place] [id number] Francis Clark CRNP [address], [place] [id number] Graves disease* Allergies Active Allergy Reactions Severity Noted Date Comments Pollen 05/29/2013 Peanut Oil 05/29/2013 documented as of this encounter (statuses as of 09/05/2022) Medications Medication Sig Dispensed Refills Start Date [...] as of this encounter (statuses as of 09/05/2022) Active Problems Problem Noted Date Family history of [place] (myocardial infarct ion) 02/18/2021 Hyperthyroidism 02/18/2021 Anxiety 02/18/2021 Graves disease 02/18/2021 Other allergic rhinitis 07/30/2001 Overview: ICD-10 update of inactive term Asthma with severity to be determined Overview: ICD-10 update of inactive term ATTN DEFIC NONHYPERACT 01/24/2000 EXT ASTHMA W-O STAT ASTH Dysmenorrhea documented as of this encounter (statuses as of 09/05/2022) Resolved Problems Problem Noted Date Resolved Date [...] as of this encounter (statuses as of 09/05/2022) Immunizations Name Administration Dates Next Due DT [...] = 0.6 oz pur e alcohol) occ Alcohol Habits Answer Date Recorded How often do you have a drink containing alcohol ? Not asked How many drinks containing a lcohol do you have on a typical day when you are drinking? Not asked How often do you have six or more drinks on one occasion? Not asked Comment: occ 06/15/2022 Food Insecurity Answer Date Recorded Within [...] as of this encounter Progress Notes * Francis ClarkKIRSTEN - 09/05/2022 10:30 AM EDT Images from the original note were not included. Patient location: HOME. I was in a hospital or clinic location. After connecting through [employer],patient was verified with two unique identifiers. Patient (or authorized legal patient registration representative) was then informed that this was a Telemedicine visit and being conducted confidentially over secure lines. Methods to assure confidentiality were taken. Patient acknowledged consent and understanding of pr ivacy and security of the Telemedicine visit. The patient agreed to participate. 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 Current Complaints: Patient reports overall feeling well since last visit. She denies any significant anterior neck pain, difficulty breathing, or changes in voice. Reports some minor difficulty with swallowing depending on what she is eating (sporadic), no choking. She currently denies any heart palpitations, or tremors. (+) Changes in energy level - fatigued however improved (+) Changes in weight - weight gain, improved (-) Eye problems/bulging (-) Constipation/diarrhea (-) changes in skin (-) menstrual cycle irregularity (-) Anxiety/depression (+) Increased sweating On Methimazole: Denies any abdominal pain, sore throat, fever or rashes. Past Medical History Past Medical History: Diagnosis Date • Allergic rhinitis due to other allergen immunotherapy for 2 years • Asthma, allergic exercise component • Attention deficit disorder without hyperactivity • Graves disease • Reactive depression Past Surgical History Past Surgical History: Procedure Laterality Date • DENTAL SURGERY PROCEDURE NEC 1 wisdom tooth • INCISION OF EARDRUM as child Myringotomy/with tubes REMOVE TONSILS & ADENOIDS, UNDER 12 as child Tonsillectomy/Adenoids,<12 Y/O MEDS Current medication list reviewed. Allergies Reviewed and updated in the appropriate section of the electronic health record Social History Social History Tobacco Use • Smoking status: Never Smoker • Smokeless tobacco: Never Used Vaping Use • Vaping Use: Never used Substance Use Topics • Alcohol use: Yes Comment: occ • Drug use: No Family History Family History Problem Relation Age of Onset • Diabetes Mother 57 hx of TIA. during card cath • Hypertension Mother • No Past Hx Father step father- panc [place] • Heart Disorder Grandfather (Maternal) • Diabetes Grandmother (Maternal) • Hypertension Grandmother (Maternal) • Musculo-skeletal Disorder Grandmother (Maternal) arthitis • No Past Hx Sister ROS As per HPI. Remainder of systems reviewed and negative PE There were no vitals filed for this visit. There is no height or weight on file to calculate BMI. Gen: appears well, in NAD HEENT: no conjunctival injection, MMM Resp: normal respiratory pattern, no dyspnea with conversation CV: no cyanosis or edema Skin: no rash MSK: 4 extremities intact, ZEPEDA Neuro: awake, alert, appropriate RECORDS I reviewed the available medical records from PCP, outside lab records Labs Results for STARR DOVE ( ) as of 05/09/2022 15:28 Ref. Range 03/23/2021 07:28 06/19/2021 08:22 04/08/2022 07:10 Hemoglobin A1C Latest Ref Range: 4.0 - 5.6 % 5.5 5.2 5.6 Insulin Latest Ref Range: 3 - 25 uU/mL 40 (H) 20 Ref. Range 03/23/2021 07:28 WBC Latest Ref Range: 4.00 - 10.80 K/uL 7.24 HGB Latest Ref Range: 12.0 - 15.3 g/dL 13.0 HCT Latest Ref Range: 36.0 - 45.2 % 39.0 MCV Latest Ref Range: 81.5 - 97.5 fL 84.2 Plt Latest Ref Range: 140 - 400 K/uL 254 Ref. Range 03/23/2021 07:28 Albumin Latest Ref Range: 3.8 - 5.0 g/dL 4.4 AST Latest Ref Range: 10 - 35 U/L 29 ALT Latest Ref Range: 10 - 35 U/L 51 (H) Alkaline Phosphatase Latest Ref Range: 35 - 130 U/L 103 Bilirubin, Total Latest Ref Range: <=1.2 mg/dL 0.4 Bilirubin, Direct Latest Ref Range: 0.0 - 0.3 mg/dL <0.2 Results for STARR DOVE ( ) as of 09/05/2022 10:25 Ref. Range 09/16/2021 10:34 12/29/2021 15:18 04/06/2022 07:55 05/13/2022 12:23 TSH Latest Ref Range: 0.27 - 4.20 uIU/mL 1.65 1.43 1.19 1.54 T4, Free Latest Ref Range: 0.9 - 1.7 ng/dL 0.9 1.1 1.0 1.1 T3, Free Latest Ref Range: 2.5 - 4.3 pg/mL 3.0 3.5 3.2 3.4 Component Ref Range & Units 3 mo ago TSI Numeric Value <140 % baseline <89 Imaging: NM thyroid scan did not show toxic nodule I-123 THYROID UPTAKE AND FUNCTION SCAN: 12/20/2019. 12/20/2019 CLINICAL HISTORY: Abnormal labs, fatigue, mood changes, and weight fluctuation. The study was requested to evaluate thyroid function and uptake The scan shows homogeneous distribution of the radiopharmaceutical within the thyroid gland which is of normal size. The right lobe measures 5.9 x 3 cm and the left lobe measures 5.7 x 2.4 cm. The 6 hour uptake is 17.3% (normal: 4 - 20%)and 24-hour uptake is 26.4% (normal: 8 - 35%). IMP: Normal study demonstrating normal thyroid uptake and function. EXAM: ULTRASOUND THYROID April 2022 HISTORY: F/U on isthmus nodule COMPARISON: Thyroid ultrasound 12/16/2020 FINDINGS: RIGHT LOBE: 5.4 x 2.0 x 1.6cm Heterogeneous echotexture without solid or cystic nodule. Normal color flow. LEFT LOBE: 4.3 x 2.1 x 1.2cm Heterogeneous echotexture without solid or cystic nodule. Normal color flow. ISTHMUS: 0.2cm in thickness. -0.4 x 0.2 x 0.3 cm isthmus nodule previously 0.8 x 0.3 x 0.5 cm. LATERAL NECK: No lymphadenopathy bilaterally. IMPRESSION: 1. Redemonstrated isthmus nodule though decreased in size to 0.4 cm previously 0.8 cm. Impression/Plan 1. Graves disease 2. Thyroid nodule 3. Family hx of DM Patient started on methimazole and beta-eboni in Dec 2020. This due to suppressed TSH with elevated free T3 and free T4, and positive TSI. Overall reports feeling well, denies any hyperthyroid related symptoms currently. Will have her continue her current methimazole dosing and recheck her thyroid labs. May consider decreasing her methimazole further or d/c in near future. Also discussed definitive options in terms of her Graves disease in the past. She denies any eye issues currently. Recommended that she decrease her BB further to 1/2 tab daily x 1 week, then d/c, as she has not experienced any palpations/tremors for some time. Small subcentimer nodule noted on last U/S which has decreased in size. - Continue Methimazole 2.5mg daily - Decrease Propranolol to 5mg daily x 1 week, then d/c - Lab work: TSH, FT3, FT4 Advised to avoid caffeine, pseudoephedrine and other stimulants Dr. Wagner was available in the clinic at the time of this office visit. Follow Up: Return in about 6 months (around 03/06/2023) for Thyroid f/u. | For: Thyroid f/u I spent a total of 30 minutes caring for this patient including reviewing the chart, gathering the history, performing visual inspection, ordering and reconciling medications, ordering tests, performing counseling, and coordinating care. 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
--- OUTSIDE RECORDS SUMMARY | 2023-08-25 07:37 | External Medical Summary | Summary of Care ---
Author Name Unknown Organization [place] [address] Care Team Providers Care Associate Professor Of Economics Name Role Phone Jethro Stevens DO Primary Care Provider Reason for Visit * Reason Onset Date Comments FYI 11/02/2022 Encounter Details Date Type Department Care Team Description 11/02/2022 Telephone Family Practice [facility] [address] [place] [address] Jethro Stevens DO [address] [place] [address] FYI Allergies Active Allergy Reactions Severity Noted [...] Problems Problem Noted Date Family history of [place] (myocardial infarct ion) 02/18/2021 Hyperthyroidism 02/18/2021 Anxiety [...] 11/02/2022) Immunizations Name Administration Dates Next Due Seasonal [...] Miscellaneous Notes * Telephone Encounter - EDE Navas - 11/02/2022 11:38 AM EST Called to confirm tomorrows appt with patient. She needs excuse that she is cleared to go back to work and the [facility] paperwork filled out and faxed over to [facility] tomorrow. She said she sent the attachment over in [email or web address]. documented in this encounter Plan of Treatment Upcoming Encounters Date Type Specialty Care Team Description 11/03/2022 Office Visit Family Medicine Jethro Stevens, [address] [place] [address] 03/09/2023 Telemedicine Endocrinology Francis Clark CRNP [address] [place] [address] Health Maintenance Due Date Last Done Comments [...] filedocumented as of this encounter Care Teams Associate Professor Of Economics Relationship Specialty Start Date End Date Jethro Stevens DO [address] [place] [address] PCP - General Family Medicine 02/18/21 documented as of this encounter
--- OUTSIDE RECORDS SUMMARY | 2023-08-25 07:37 | External Medical Summary ---
Author Name Unknown Address Unknown Organization K01:[facility] [address] [place] [address] Laboratory Report Ordering Provider Test Date Status MAGALY ESCAMILLA 09/16/2022 07:33:42 Final Observation Date Value Abnormality Reference (Units ) Status T3, Free 09/16/2022 07:33:42 3.6 2.5-4.3 (p g/mL) Final Performing Location [facility] - [address] [place] [address]
--- OUTSIDE RECORDS SUMMARY | 2023-08-25 07:38 | External Medical Summary | Summary of Care ---
Author Name Unknown Organization [place] [address] Care Team Providers Care Commissary Superintendent Name Role Phone Jethro Stevens DO Primary Care Provider Encounter Details Date Type Department Care Team Description 07/03/2022 Scan Encounter [facility] [place] [address] Jethro Stevens DO [address] [place] [address] <No scans attached> Allergies Active Allergy Reactions Severity Noted Date Comments Pollen 05/29/2013 Peanut Oil 05/29/2013 documented as of this encounter (statuses as of 07/04/2022) Medications Medication Sig Dispensed Refills Start Date [...] 18 g 3 11/26/2021 Active FLUoxetine HCl 20 MG Oral Capsule (PROzac)Indications :Anxiety Take by mouth 1 Capsule in the morning. 30 Capsule 11 02/17/2022 Active Propranolol HCl 10 MG Oral Tablet [...] the morning. 30 Capsule 0 06/29/2022 Active documented as of this encounter (statuses as of 07/04/2022) Active Problems Problem Noted Date Family history of [place] (myocardial infarct ion) 02/18/2021 Hyperthyroidism 02/18/2021 Anxiety 02/18/2021 Graves disease 02/18/2021 Other allergic rhinitis 07/30/2001 Overview: ICD-10 update of inactive term Asthma with severity to be determined Overview: ICD-10 update of inactive term ATTN DEFIC NONHYPERACT 01/24/2000 EXT ASTHMA W-O STAT ASTH Dysmenorrhea documented as of this encounter (statuses as of 07/04/2022) Resolved Problems Problem Noted Date Resolved Date [...] as of this encounter (statuses as of 07/04/2022) Immunizations Name Administration Dates Next Due DT [...] Encounters Date Type Specialty Care Team Description 09/05/2022 Telemedicine Endocrinology Francis Clark ASSEMBLER [employer] [address] [facility] [place] [address] Health Maintenance Due Date Last Done Comments [...] Not on filedocumented as of this encounter Advance Directives Documents on File Type Date Recorded 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
--- OUTSIDE RECORDS SUMMARY | 2023-08-25 07:38 | External Medical Summary | Summary of Care ---
Author Name Unknown Organization [place] [address] Care Team Providers Care Vice Investigator Name Role Phone Jethro Stevens DO Primary Care Provider Reason for Referral * Evaluate & Treat - Unlimited Visits (Within 10 days (routine)) - Pending Review Specialty Diagnoses / Procedures Referred By Sharlene rivera Referred To Contact Physical Therapy / Physical Medicine And Rehab Diagnoses Low back strain, initial encounter Jethro Stevens DO [address] [address] Referral ID Status Reason Start Date Expiration Date Visits Requested Visits Authorized Pending Review Specialty Services Required 05/24/2022 999 999 Question Answer Referral Priority Within 10 days (routine) Comments Low back strain with some radicular features Please work on core stability and improve strength and Give a home regimen Reason for Visit * Reason Comments Emergency Department Follow-Up Pt seen o n 05/22/2022 at [facility] for pinched nerve bilat legs. Pain continues Encounter Details Date Type Department Care Team Description 05/24/2022 Office Visit Family [facility] [address] [address] Jethro Stevens DO [address] [address] Low back strain, initial encounter* Allergies Active Allergy Reactions Severity Noted Date Comments Pollen 05/29/2013 Peanut Oil 05/29/2013 documented as of this encounter (statuses as of 05/24/2022) Medications Medication Sig Dispensed Refills Start Date [...] 3 10/29/2021 Active Additional Information Patient not taking. Reported on 02/17/2022 Albuterol Sulfate HFA 108 (90 Base) MCG/ACT Inhalation Aerosol Solution Inhale 2 Puffs by mouth every 4 hours as needed for Cough, Shortness of Breath or Wheezing. 18 g 3 11/26/2021 Active Additional Information Patient not taking. Reported on 05/24/2022 FLUoxetine HCl 20 MG Oral Capsule (PROzac)Indications [...] Capsule in the morning. 30 Capsule 0 04/26/2022 Active documented as of this encounter (statuses as of 05/24/2022) Active Problems Problem Noted Date Family history of [place] (myocardial infarct ion) 02/18/2021 Hyperthyroidism 02/18/2021 Anxiety 02/18/2021 Graves disease 02/18/2021 Other allergic rhinitis 07/30/2001 Overview: ICD-10 update of inactive term Asthma with severity to be determined Overview: ICD-10 update of inactive term ATTN DEFIC NONHYPERACT 01/24/2000 EXT ASTHMA W-O STAT ASTH Dysmenorrhea documented as of this encounter (statuses as of 05/24/2022) Resolved Problems Problem Noted Date Resolved Date [...] as of this encounter (statuses as of 05/24/2022) Immunizations Name Administration Dates Next Due DT - Diptheria/Tetanus (PEDS) 01/24/1991, 987,03/21/1986 DTP Vaccine 01/23/1986,1985 Haemophilus B (HIB) 03/30/1989 Hepatitis B, 0-19 yrs 02/25/1997,09/11/1996,06/20 MMR - Measles/Mumps/Rubella Vaccine 01/24/1991,1 12/05/1986 OPV - Polio Virus Vaccine (Oral) 991,09/26/1986,01/23/1986,1985 Seasonal Influenza, Quadriva lent, No Preserve, 6 [employer] & Above, IM 09/23/2020 Seasonal Influenza, Split, I IV3, With Preserve, Inj 08/08/2013 TD - Tetanus/Diptheria (ADULT) 07/04/1997 documented as of this encounter Social History Tobacco Use Types Packs/Day Years Used Date Never Smoker Smokeless Tobacco: Never Used Alcohol Use Standard Drinks/Week Comments No 0 (1 standard drink = 0.6 oz pur e alcohol) Food Insecurity Answer Date Recorded Within the [...] Sign Reading Time Taken Comments Blood Pressure 130/80 05/24/2022 10:56 AM EDT Pulse 73 05/24/2022 10:56 AM EDT Temperature 36.9 °C (98.5 °F) 05/24/2022 10:56 AM E DT Respiratory Rate 16 05/24/2022 10:56 AM EDT Oxygen Saturation 99% 05/24/2022 10:56 AM EDT Inhaled Oxygen Concentration - - Weight 94.9 kg (209 lb 5 oz) 05/24/2022 10:56 AM EDT Height - - Body Mass Index 38.28 04/20/2021 10:33 AM EDT documented in this encounter Progress Notes * Jethro Stevens, DO - 05/24/2022 11:04 AM EDT Images from the original note were not included. Assessment and Plan Low back strain, initial encounter Educated on expected recovery Low back strain will improve in time No imaging needed right now, no red flag sx - PHYSICAL THERAPY REFERRAL OP - RETURN TO WORK OR SCHOOL History of Present Illness Starr Dove is a 36 year old female that presents for Emergency Department Follow-Up (Pt seen on05/22/2022 at [facility] for pinched nerve bilat legs. Pain continues) Presents in f/u from ER visit for low back strain with bilateral leg radicular sx No saddle anesthesia, no trouble regulating bowel or bladder function Has not had this happen recently Work requires lifting Physical Exam Vitals: 05/24/22 1056 Temp: 36.9 °C (98.5 °F) Pulse: 73 Resp: 16 SpO2: 99% BP: 130/80 Physical Exam Constitutional: Appearance: Normal appearance. HENT: Head: Normocephalic and atraumatic. Eyes: Extraocular Movements: Extraocular movements intact. Pupils: Pupils are equal, round, and reactive to light. Musculoskeletal: General: Tenderness and signs of injury present. No swelling or deformity. Neurological: General: No focal deficit present. Mental Status: She is alert and oriented to person, place, and time. Psychiatric: Mood and Affect: Mood normal. Behavior: Behavior normal. Wrap-Up Time: Total time today was 25 minutes excluding any time spent in the performance of separately billed services. documented in this encounter Plan of Treatment Upcoming Encounters Date Type Specialty Care Team Description 06/09/2022 Office Visit Family Medicine Jethro Stevens DO [address] [facility] [address] [address] 09/05/2022 Telemedicine Endocrinology Francis Clark CRNP [address] [place] [address] Scheduled Referrals Name Type Priority Associated Diagnoses Orde r Schedule PHYSICAL THERAPY REFERRAL OP Referral Within 10 days (routine) Low back strain, initial encounter Ordered: 05/24/2022 Health Maintenance Due Date Last Done Comments COVID-19 Vaccine (#1) 03/05/1986 Pneumococcal Vaccine: Pediatrics (0 to 5 Years) and At-Risk Patients (6 to 64 Years) (1 - PCV) 1991 DTaP,Tdap,and Td Vaccines (6 - Tdap) 07/05/1997 07/04/1997, 01/24/1991, 04/03/1987, Additional history exists PAP SMEAR-EVERY 3 YRS,AGES 21-65 2006 Depression Screening, Annual for Pts 12 and Over 09/23/2021 09/23/2020 Influenza Vaccine (FLU shot) (#1) 2022 09/23/2020, 08/08/2013 GARDASIL-HPV IMMUNIZATION SERIES Aged Out No longer eligible based on patient's age to complete this topic MENINGOCOCCAL (MENACTRA/MENVEO) Aged Out No longer eligible based on patient's age to complete this topic documented as of this encounter Implants Not on filedocumented as of this encounter Visit Diagnoses Diagnosis Low back strain, initial encounter- Primary documented in this encounter Advance Directives Documents on File Type Date Recorded Patient Teaching Fellow Expl anation Advanced Directive Advanced Directive Advanced [...] Directive Advanced Directive Advanced Directive Care Teams Vice Investigator Relationship Specialty Start Date End Date Jethro Stevens DO [address] [address] PCP - General Family Medicine 02/18/21 documented as of this encounter
--- OUTSIDE RECORDS SUMMARY | 2023-08-25 07:38 | External Medical Summary | Summary of Care ---
Author Name Unknown Organization [place] [address] Care Team Providers Care Margin Trimmer Name Role Phone Jethro Stevens DO Primary Care Provider Reason for Visit * Reason Onset Date Comments Fax 06/02/2022 Encounter Details Date Type Department Care Team Description 06/02/2022 Telephone Family Practice [facility] [address] [address] Jethro Stevens DO [address] [place] [address] Fax Allergies Active Allergy Reactions Severity Noted Date Comments Pollen 05/29/2013 Peanut Oil 05/29/2013 documented as of this encounter (statuses as of 06/02/2022) Medications Medication Sig Dispensed Refills Start Date [...] Capsule in the morning. 30 Capsule 0 05/26/2022 Active documented as of this encounter (statuses as of 06/02/2022) Active Problems Problem Noted Date Family history of [place] (myocardial infarct ion) 02/18/2021 Hyperthyroidism 02/18/2021 Anxiety 02/18/2021 Graves disease 02/18/2021 Other allergic rhinitis 07/30/2001 Overview: ICD-10 update of inactive term Asthma with severity to be determined Overview: ICD-10 update of inactive term ATTN DEFIC NONHYPERACT 01/24/2000 EXT ASTHMA W-O STAT ASTH Dysmenorrhea documented as of this encounter (statuses as of 06/02/2022) Resolved Problems Problem Noted Date Resolved Date [...] as of this encounter (statuses as of 06/02/2022) Immunizations Name Administration Dates Next Due DT [...] * Telephone Encounter - EDE Samuel - 06/02/2022 2:21 PM EDT Referral faxed. * Telephone Encounter - EDE Mcleod - 06/02/2022 11:14 AM EDT Caller requesting the following information to be faxed: Name/Company of caller: [employer] Information requested to be faxed: Plan of care Fax number: [phone] Attention to Name/Company: [employer] Any additional information?: documented in this encounter Plan of Treatment Upcoming Encounters Date Type Specialty Care Team Description 06/09/2022 Office Visit Family Medicine Jethro Stevens, [address] [facility] [address] [place] [address] 09/05/2022 Telemedicine Endocrinology Francis Clark CRNP [address] [place] [facility] [place] [address] Health Maintenance Due Date Last Done [...] 04/08/2022, 0 06/19/2021, 03/23/2021, Additional history exists GARDASIL-HPV IMMUNIZATION SERIES Aged Out No longer eligible based on patient's age to complete this topic MENINGOCOCCAL (MENACTRA/MENVEO) Aged Out No longer eligible based on patient's age to complete this topic documented as of this encounter Implants Not on filedocumented as of this encounter Advance Directives Documents on File Type Date Recorded Patient Hydraulics Engineer Expl anation Advanced Directive Advanced Directive Advanced [...] Directive Advanced Directive Advanced Directive Care Teams Margin Trimmer Relationship Specialty Start Date End Date Jethro Stevens DO [address] [address] PCP - General Family Medicine 02/18/21 documented as of this encounter
--- OUTSIDE RECORDS SUMMARY | 2023-08-25 07:38 | External Medical Summary | Summary of Care ---
Author Name Unknown Organization [place] [address] Care Team Providers Care Carnival Worker Name Role Phone Mendoza Stevenshazel Floresrip Primary Care Provider Reason for Visit * Reason Onset Date Comments Medication Refill 06/29/2022 Encounter Details Date Type Department Care Team Description 06/29/2022 Refill Nutrition & Weight Management, [place] [address] [place] [address] Morgan Kenny MD [address] [place] [address] Allergies Active Allergy Reactions Severity Noted Date Comments Pollen 05/29/2013 Peanut Oil 05/29/2013 documented as of this encounter (statuses as of 06/29/2022) Medications Medication Sig Dispensed Refills Start Date [...] Active FLUoxetine HCl 20 MG Oral Capsule (PROzac)Indicatio ns:Anxiety Take by mouth 1 Capsule in the [...] the morning. 30 Capsule 0 06/29/2022 Active Phentermine HCl 15 MG Oral Capsule Take by mouth 1 Capsule in the morning. 30 Capsule 0 05/26/2022 Discontinue d(Refill) documented as of this encounter (statuses as of 06/29/2022) Active Problems Problem Noted Date Family history of [place] (myocardial infarct ion) 02/18/2021 Hyperthyroidism 02/18/2021 Anxiety 02/18/2021 Graves disease 02/18/2021 Other allergic rhinitis 07/30/2001 Overview: ICD-10 update of inactive term Asthma with severity to be determined Overview: ICD-10 update of inactive term ATTN DEFIC NONHYPERACT 01/24/2000 EXT ASTHMA W-O STAT ASTH Dysmenorrhea documented as of this encounter (statuses as of 06/29/2022) Resolved Problems Problem Noted Date Resolved Date [...] as of this encounter (statuses as of 06/29/2022) Immunizations Name Administration Dates Next Due DT [...] drink = 0.6 oz pur e alcohol) [facility] Alcohol Habits Answer Date Recorded How often do you have a drink containing alcohol ? Not asked How many drinks containing a lcohol do you have on a typical day when you are drinking? Not asked How often do you have six or more drinks on one occasion? Not asked Comment: [facility] 06/15/2022 Food Insecurity Answer Date Recorded Within [...] encounter Miscellaneous Notes * Telephone Encounter - Morgan Kenny MD - 06/29/2022 12:41 PM EDT Signed Prescriptions: Disp Refills Phentermine HCl 15 MG Oral Capsule 30 Cap*0 Sig: Take by mouth 1 Capsule in the morning. Authorizing Provider: MORGAN KENNY * Telephone Encounter - Morgan Kenny MD - 06/29/2022 12:41 PM EDT Approved today's medication refill request on Phentermine 15 mg qd (D#30); however, pt must be seenby [facility] provider before further requests are granted. Thank you. * Telephone Encounter - Christel Ruiz RN - 06/29/2022 7:40 AM EDT Pending Prescriptions: Disp Refills Phentermine HCl 15 MG Oral Capsule 30 Cap*0 Sig: Take by mouth 1 Capsule in the morning. documented in this encounter Plan of Treatment Upcoming Encounters Date Type Specialty Care Team Description 09/05/2022 Telemedicine Endocrinology Francis Clark CRNP [address] [place] [address] Health Maintenance Due Date Last Done Comments [...] Documents on File Type Date Recorded Patient Care Manager Expl anation Advanced Directive Advanced Directive Advanced [...] Directive Advanced Directive Advanced Directive Care Teams Carnival Worker Relationship Specialty Start Date End Date Jethro Stevens DO [address] [facility] [address] [place] [address] PCP - General Family Medicine 02/18/21 documented as of this encounter
--- OUTSIDE RECORDS SUMMARY | 2023-08-25 07:38 | External Medical Summary ---
Author Name Unknown Address Unknown Organization K01:[facility] [address] [place] [address] Laboratory Report Ordering Provider Test Date Status MAGALY ESCAMILLA 05/13/2022 12:23:41 Final Observation Date Value Abnormality Reference (Units ) Status T4, Free 05/13/2022 12:23:41 1.1 0.9-1.7 (n g/dL) Final Performing Location [facility] [address] [place] [address]
--- OUTSIDE RECORDS SUMMARY | 2023-08-25 07:38 | External Medical Summary | Summary of Care ---
Author Name Unknown Organization [place] [address] Care Team Providers Care Train Examiner Name Role Phone Mendoza Stevenshazel Floresrip Primary Care Provider Reason for Visit * Reason Onset Date Comments Medication Refill 05/25/2022 Encounter Details Date Type Department Care Team Description 05/25/2022 Refill Nutrition & Weight Management, [place] [address] [place] [address] Morgan Kenny MD [address] [place] [address] Allergies Active Allergy Reactions Severity Noted Date Comments Pollen 05/29/2013 Peanut Oil 05/29/2013 documented as of this encounter (statuses as of 06/28/2022) Medications Medication Sig Dispensed Refills Start Date [...] the morning. 30 Capsule 0 05/26/2022 Active Phentermine HCl 15 MG Oral Capsule Take by mouth 1 Capsule in the morning. 30 Capsule 0 04/26/2022 Discontinue d(Refill) documented as of this encounter (statuses as of 06/28/2022) Active Problems Problem Noted Date Family history of [place] (myocardial infarct ion) 02/18/2021 Hyperthyroidism 02/18/2021 Anxiety 02/18/2021 Graves disease 02/18/2021 Other allergic rhinitis 07/30/2001 Overview: ICD-10 update of inactive term Asthma with severity to be determined Overview: ICD-10 update of inactive term ATTN DEFIC NONHYPERACT 01/24/2000 EXT ASTHMA W-O STAT ASTH Dysmenorrhea documented as of this encounter (statuses as of 06/28/2022) Resolved Problems Problem Noted Date Resolved Date [...] as of this encounter (statuses as of 06/28/2022) Immunizations Name Administration Dates Next Due DT [...] Telephone Encounter - Morgan Kenny MD - 05/26/2022 7:57 AM EDT Signed Prescriptions: Disp Refills Phentermine HCl 15 MG Oral Capsule 30 Cap*0 Sig: Take by mouth 1 Capsule in the morning. Authorizing Provider: MORGAN KENNY * Telephone Encounter - Morgan Kenny MD - 05/26/2022 7:57 AM EDT Will refill medication Phentermine 15 mg (D#30) today 05/26/2022 but for further requests, pt must first be seen by a provider in [facility] clinic documented in this encounter Plan of Treatment Upcoming Encounters Date Type Specialty Care Team Description 09/05/2022 Telemedicine Endocrinology Francis Clark CRNP [address] [place] [address] Health Maintenance Due Date Last Done Comments [...] Documents on File Type Date Recorded Patient Nurse Anesthetist Expl anation Advanced Directive Advanced Directive Advanced [...] Directive Advanced Directive Advanced Directive Care Teams Train Examiner Relationship Specialty Start Date End Date Jethro Stevens DO [address] [facility] [address] [place] [address] PCP - General Family Medicine 02/18/21 documented as of this encounter
--- OUTSIDE RECORDS SUMMARY | 2023-08-25 07:38 | External Medical Summary | Summary of Care ---
Author Name Unknown Organization [place] [address] Care Team Providers Care Psychiatry Instructor Name Role Phone Mendoza Stevenshazel Floresrip Primary Care Provider Reason for Visit * Reason Comments eRx-Medication Refill Encounter Details Date Type Department Care Team Description 04/25/2022 Refill [facility], [place] [address], [place] [id number] Andi Mckenzie CRNP [address], [place] [id number] Graves disease Allergies Active Allergy Reactions Severity Noted Date Comments Pollen 05/29/2013 Peanut Oil 05/29/2013 documented as of this encounter (statuses as of 04/25/2022) Medications Medication Sig Dispensed Refills Start Date End Date Status IBUPROFEN 600 MG PO TABS None Entered 0 Active SUMATRIPTAN SUCCINATE 50 MG PO TABSIndications: Migraine with intractable migraine 1 TABLET 1 TIME ONLY,REPEAT AFTER 2 HR NEEDED 30 Tab 3 11/12/2013 Active hydrOXYzine HCl 50 MG Oral TabletIndication s:Anxiety TAKE ONE TABLET BY MOUTH EVERY 6 HOURS NEEDED FOR ANXIETY 40 Tablet 3 10/29/2021 Active Additional Information Patient not taking. Reported on 02/17/2022 Albuterol Sulfate HFA 108 (90 Base) MCG/ACT Inhalation Aerosol Solution Inhale 2 Puffs by mouth every 4 hours as needed for Cough, Shortness of Breath or Wheezing. 18 g 3 11/26/2021 Active FLUoxetine HCl 20 MG Oral Capsule (PROzac)Indicati ons:Anxiety Take by mouth 1 Capsule in the morning. 30 Capsule 11 02/17/2022 Active Propranolol HCl 10 MG Oral Tablet (Inderal)Indicat ions:Anxiety,Gra ves disease,Hyperthy roidism Take by mouth 1 Tablet in the morning AND 1 Tablet before bedtime. 60 Tablet 5 02/17/2022 Active Phentermine HCl 15 MG Oral Capsule Take by mouth 1 Capsule in the morning. 30 Capsule 0 04/07/2022 Active methIMAzole 5 MG Oral Tablet (Tapazole)Indica tions:Graves disease TAKE ONE TABLET BY MOUTH EVERY DAY 30 Tablet 5 04/25/2022 Active methIMAzole 5 MG Oral Tablet (Tapazole)Indica tions:Graves disease Take 1 Tablet by mouth daily. 30 Tablet 5 09/27/2021 Discontinued documented as of this encounter (statuses as of 04/25/2022) Active Problems Problem Noted Date Family history of [place] (myocardial infarct ion) 02/18/2021 Hyperthyroidism 02/18/2021 Anxiety 02/18/2021 Graves disease 02/18/2021 Other allergic rhinitis 07/30/2001 Overview: ICD-10 update of inactive term Asthma with severity to be determined Overview: ICD-10 update of inactive term ATTN DEFIC NONHYPERACT 01/24/2000 EXT ASTHMA W-O STAT ASTH Dysmenorrhea documented as of this encounter (statuses as of 04/25/2022) Resolved Problems Problem Noted Date Resolved Date Encounter for supervision of other normal pregna ncy 05/29/2013 10/10/2013 Overview: Transfer of Care; Records received 02/22/13: glucose 95; Hep BsAg neg; Hep C ab-nonreactive; HIV nonreactive; RPR nonreactive; rubella immune; O+, antibody negative 03/05/13- chlamydia negative, gonorrhea negative Patient received flu vaccine. 08/08/2013 Charlee Souza, RN GBS Negative KIRSTEN Rios, MARGARITA 09/30/2013 ICD-10 update of inactive term documented as of this encounter (statuses as of 04/25/2022) Immunizations Name Administration Dates Next Due DT [...] encounter Miscellaneous Notes * Telephone Encounter - KIRSTEN Bush - 04/25/2022 8:07 AM EDT Signed Prescriptions: Disp Refills methIMAzole 5 MG Oral Tablet (Tapazole) 30 Tab*5 Sig: TAKE ONE TABLET BY MOUTH EVERY DAY Authorizing Provider: ANDI MCKENZIE * Telephone Encounter - Julieta Cohen LPN - 04/25/2022 8:03 AM EDT Pending Prescriptions: Disp Refills methIMAzole 5 MG Oral Tablet (Tapazole) 30 Tab*5 Sig: TAKE ONE TABLET BY MOUTH EVERY DAY * Telephone Encounter - Julieta Cohen LPN - 04/25/2022 8:03 AM EDT Pending Prescriptions: Disp Refills methIMAzole 5 MG Oral Tablet (Tapazole) [*30 Tab*5 Sig: TAKE ONE TABLET BY MOUTH EVERY DAY Visit date not found (in office), 04/08/2021 (telemedicine) 05/09/2022 If no future appointments scheduled, and last appointment is greater than a year ago, please schedule patient for a follow-up appointment Last date the medication was ordered: 09/27/2021 Pharmacy: [id number] [id number] [facility] Labs: Lab Results Component Value Date/Time TSH - [facility] 1.19 04/06/2022 07:55 AM TSH - OUTSIDE LAB 0.01 (A) 01/20/2021 12:00 AM No results found for: FREE Lab Results Component Value Date/Time ALKALINE PHOSPHATASE - [facility] 103 03/23/2021 07:28 AM Lab Results Component Value Date/Time ALT - [facility] 51 (H) 03/23/2021 07:28 AM ALT-OUTSIDE LAB 25 09/23/2020 12:00 AM Lab Results Component Value Date/Time AST - [facility] 29 03/23/2021 07:28 AM documented in this encounter Plan of Treatment Upcoming Encounters Date Type Specialty Care Team Description 05/09/2022 Telemedicine Endocrinology Andi Mckenzie CRNP [address] [place] [address] 06/09/2022 Office Visit Family Medicine Jethro Stevens DO [address] [address] Health Maintenance Due Date Last Done Comments COVID-19 Vaccine (#1) 1990 Pneumococcal Vaccine: Pediatrics (0 to 5 Years) and At-Risk Patients (6 to 64 Years) (1 - PCV) 1991 DTaP,Tdap,and Td Vaccines (6 - Tdap) 07/05/1997 07/04/1997, 01/24/1991, 04/03/1987, Additional history exists PAP SMEAR-EVERY 3 YRS,AGES 21-65 2006 Depression Screening, Annual for Pts 12 and Over 09/23/2021 09/23/2020 Influenza Vaccine (FLU shot) (Season Ended) 2022 09/23/2020, 08/08/2013 GARDASIL-HPV IMMUNIZATION SERIES Aged [...] Documents on File Type Date Recorded Patient Medical Research Scientist Expl anation Advanced Directive Advanced Directive Advanced [...] Directive Advanced Directive Advanced Directive Care Teams Psychiatry Instructor Relationship Specialty Start Date End Date Jethro Stevens DO [address] [address] PCP - General Family Medicine 02/18/21 documented as of this encounter
--- OUTSIDE RECORDS SUMMARY | 2023-08-25 07:38 | External Medical Summary | Summary of Care ---
Author Name Unknown Organization [place] [address] Care Team Providers Care Oracle Manager Name Role Phone Jethro Stevens DO Primary Care Provider Reason for Referral * Precert (Within 10 days (routine)) - Pending Review Specialty Diagnoses / Procedures Referred By Contac t Referred To Contact Radiology Diagnoses Chronic right-sided low back pain with right-sided sciatica Procedures MRI L SPINE WO CONTRAST Diya Rogers DO [address] [place] [id number] Referral ID Status Reason Start Date Expiration Date V isits Requested Visits Authorized [id number] Pending Review 07/09/[phone] Reason for Visit * Reason Comments Emergency Department Follow-Up Encounter Details Date Type Department Care Team Description 07/08/2022 Office Visit [facility] [address] [place] [address] Diya Rogers DO [address] [facility] [address] [place] [address] Chronic right-sided low back pain with right-sided sciatica* Allergies Active Allergy Reactions Severity Noted Date Comments Pollen 05/29/2013 Peanut Oil 05/29/2013 documented as of this encounter (statuses as of 07/20/2022) Medications Medication Sig Dispensed Refills Start Date [...] 2 days 30 Tablet 0 07/08/2022 Active documented as of this encounter (statuses as of 07/20/2022) Active Problems Problem Noted Date Family history of [place] (myocardial infarct ion) 02/18/2021 Hyperthyroidism 02/18/2021 Anxiety 02/18/2021 Graves disease 02/18/2021 Other allergic rhinitis 07/30/2001 Overview: ICD-10 update of inactive term Asthma with severity to be determined Overview: ICD-10 update of inactive term ATTN DEFIC NONHYPERACT 01/24/2000 EXT ASTHMA W-O STAT ASTH Dysmenorrhea documented as of this encounter (statuses as of 07/20/2022) Resolved Problems Problem Noted Date Resolved Date [...] as of this encounter (statuses as of 07/20/2022) Immunizations Name Administration Dates Next Due DT [...] Sign Reading Time Taken Comments Blood Pressure 116/72 07/08/2022 8:59 AM EDT Pulse 76 07/08/2022 8:59 AM EDT Temperature 36.7 °C (98 °F) 07/08/2022 8:59 AM EDT Respiratory Rate 16 07/08/2022 8:59 AM EDT Oxygen Saturation 98% 07/08/2022 8:59 AM EDT Inhaled Oxygen Concentration - - Weight 92.6 kg (204 lb 1.9 oz) 07/08/2022 8:59 A M EDT Height 157.5 cm (5' 2") 07/08/2022 8:59 AM EDT Body Mass Index 37.33 07/08/2022 8:59 AM EDT documented in this encounter Progress Notes * Diya Rogers, DO - 07/08/2022 9:03 AM EDT Subjective: Starr Dove is a 36 year old female. Chief Complaint Patient presents with • Emergency Department Follow-Up HPI: Patient presents today for an ER follow up. She has been having ongoing back pain since the 22 of May. Radiates down right leg- sciatica, no numbness, weakness. +moderate to severe pain intermittently. Has already tried multiple months of physical therapy PHM: Patient Active Problem List Diagnosis Code • Asthma with severity to be determined J45.909 • ATTN DEFIC NONHYPERACT F98.8 • Other allergic rhinitis J30.89 • EXT ASTHMA W-O STAT ASTH J45.909 • Dysmenorrhea N94.6 • Family history of [place] (myocardial infarction) Z82.49 • Hyperthyroidism E05.90 • Anxiety F41.9 • Graves disease E05.00 Outpatient Medications Prior to Visit Medication Sig Dispense Refill • Phentermine HCl 15 MG Oral Capsule Take by mouth 1 Capsule in the morning. 30 Capsule 0 • Ozempic (0.25 or 0.5 MG/DOSE) 2 MG/1.5ML Solution Pen-injector (Semaglutide(0.25 or 0.5MG/DOS))Inject under the skin 0.25 mg once a week . 3 mL 3 • methIMAzole 5 MG Oral Tablet (Tapazole) TAKE ONE TABLET BY MOUTH EVERY DAY (Patient taking differently: 2.5 mg . ) 30 Tablet 5 • FLUoxetine HCl 20 MG Oral Capsule (PROzac) Take by mouth 1 Capsule in the morning. 30 Capsule 11 • Propranolol HCl 10 MG Oral Tablet (Inderal) Take by mouth 1 Tablet in the morning AND 1 Tablet before bedtime. (Patient taking differently: Take by mouth 10 mg 2 times a day . Pt is taking one tablet by mouth daily. ) 60 Tablet 5 • Albuterol Sulfate HFA 108 (90 Base) MCG/ACT Inhalation Aerosol Solution Inhale 2 Puffs by mouthevery 4 hours as needed for Cough, Shortness of Breath or Wheezing. 18 g 3 • hydrOXYzine HCl 50 MG Oral Tablet TAKE ONE TABLET BY MOUTH EVERY 6 HOURS NEEDED FOR ANXIETY 40 Tablet 3 • SUMATRIPTAN SUCCINATE 50 MG PO TABS 1 TABLET 1 TIME ONLY,REPEAT AFTER 2 HR NEEDED 30 Tab 3 • IBUPROFEN 600 MG PO TABS None Entered No facility-administered medications prior to visit. Last reviewed on 06/15/2022 11:49 AM by Comfort Britt RN Review of patient's allergies indicates: Allergen Reactions • Environmental [Pollen] • Peanut Oil Objective: BP 116/72 | Pulse 76 | Temp 36.7 °C (98 °F) (Tympanic) | Resp 16 | Ht 1.575 m (5' 2") | Wt 92.6 kg (204 lb 1.9 oz) | SpO2 98% | BMI 37.33 kg/m² | BSA 2.01 m² Physical Exam: General: alert, healthy and no distress Head: Normocephalic, No masses, lesions, tenderness or abnormalities Neck: supple, no adenopathy, no bruits, thyroid normal size, non-tender, without nodularity Heart: regular rate & rhythm, no murmurs and no gallops Lungs: chest symmetric with normal AP diameter, no chest deformities noted, no chest wall tenderness, lungs clear to auscultation Pulses: carotid=2/4 w/o bruits Extremities: less than 2 second capillary refill, no joint deformities, effusion, or inflammation Neuro - CN II - IX intact, normal cerebellar, normal FTN, WENDY, +2 bilateral brisk reflexes (ue and le), normal strength 5/5 throughout ASSESSMENT/PLAN: Chronic right-sided low back pain with right-sided sciatica (Primary) - XR L SPINE AP AND LATERAL - MRI L SPINE WO CONTRAST; Future; Expected date: 07/09/2022 - RETURN TO WORK OR SCHOOL Other orders - predniSONE 10 MG Oral Tablet (Deltasone); Take 5 tabs for 2 days, 4 tabs for 2 days, 3 tabs for 2days, 2 tabs for 2 days 1 tab for 2 days Follow Up: Return in about 4 weeks (around 08/05/2022), or if symptoms worsen or fail to improve, for Clinic Visit. | For: Clinic Visit | Check-out note: F/u PCP Diya Rogers DO documented in this encounter Nursing Notes * Deana Nathan LPN - 07/08/2022 8:58 AM EDT Patient presents today for an ER follow up. She has been having ongoing back pain since the 22 of May. documented in this encounter Plan of Treatment Upcoming Encounters Date Type Specialty Care Team Description 08/08/2022 Imaging Radiology 09/05/2022 Telemedicine Endocrinology Francis Clark CRNP [address] [place] [address] Scheduled Orders Name Type Priority Associated Diagnoses Orde r Schedule XR L SPINE AP AND LATERAL Medical Imaging Routine Chronic right-sided low back pain with right-sided sciatica Ordered: 07/08/2022 MRI L SPINE WO CONTRAST Medical Imaging Routine Chronic right-sided low back pain with right-sided sciatica Expected: 07/09/2022, Expires: 08/08/2023 Health Maintenance Due Date Last Done Comments [...] as of this encounter Visit Diagnoses Diagnosis Chronic right-sided low back pain with right-sided sciatica- Primary documented in this encounter Advance Directives Documents on File Type Date Recorded 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
--- OUTSIDE RECORDS SUMMARY | 2023-08-25 07:38 | External Medical Summary | Summary of Care ---
Author Name Unknown Organization [place] [address] Care Team Providers Care Soda Clerk Name Role Phone Jethro Stevens DO Primary Care Provider Reason for Visit * Reason Onset Date Comments Emergency Department Follow-Up 07/06/2022 Encounter Details Date Type Department Care Team Description 07/06/2022 Telephone Family Practice [facility] [address] [address] Jethro Stevens DO [address] [facility] [place] [address] Emergency Department Follow-Up Allergies Active Allergy Reactions Severity Noted Date Comments Pollen 05/29/2013 Peanut Oil 05/29/2013 documented as of this encounter (statuses as of 07/06/2022) Medications Medication Sig Dispensed Refills Start Date [...] as of this encounter (statuses as of 07/06/2022) Active Problems Problem Noted Date Family history of [place] (myocardial infarct ion) 02/18/2021 Hyperthyroidism 02/18/2021 Anxiety 02/18/2021 Graves disease 02/18/2021 Other allergic rhinitis 07/30/2001 Overview: ICD-10 update of inactive term Asthma with severity to be determined Overview: ICD-10 update of inactive term ATTN DEFIC NONHYPERACT 01/24/2000 EXT ASTHMA W-O STAT ASTH Dysmenorrhea documented as of this encounter (statuses as of 07/06/2022) Resolved Problems Problem Noted Date Resolved Date [...] as of this encounter (statuses as of 07/06/2022) Immunizations Name Administration Dates Next Due DT [...] encounter Miscellaneous Notes * Telephone Encounter - Yolande Gabriel LPN - 07/06/2022 3:55 PM EDT Emergency Department Follow Up: Did patient call the office before going to ER: No When was patient seen: 07/03/22 Which ED: [facility] What were they seen for: Back pain that goes down right leg What testing did they have done: None What did ED think was wrong (dx): Sciatic Any new medications prescribed: Oxy IR Home Pack - she has only taken 2 and it does help her a little How is patient feeling today: pain is a little bit improved, doing her stretches she was taught, applies heat. Patient concerns today: She work for [employer] at [employer] 3rd shift. She was given an excuse off until 07/10 from the ER if she should need it. She tried to go back to work last night and they told herthat she could not return without a work release note. Pt scheduled - Date/Time/Provider per pt request * Telephone Encounter - EDE Win - 07/06/2022 3:50 PM EDT Reason for patient's call: Returning call to schedule follow up appt. Caller was transferred to [facility] at the nurse line. * Telephone Encounter - EDE Hernandez - 07/06/2022 8:24 AM EDT Patient was seen in ED. Please see call details. 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
--- OUTSIDE RECORDS SUMMARY | 2023-08-25 07:38 | External Medical Summary | Summary of Care ---
Author Name Unknown Organization [place] [address] Care Team Providers Care Audio/Video Technician Name Role Phone Jethro Stevens DO Primary Care Provider Reason for Visit * Reason Onset Date Comments Emergency Department Follow-Up 07/06/2022 Encounter Details Date Type Department Care Team Description 07/06/2022 Telephone Family Practice [facility] [address] [address] Jethro Stevens DO 132 [facility] [place] [address] Emergency Department Follow-Up Allergies Active Allergy Reactions Severity Noted Date Comments Pollen 05/29/2013 Peanut Oil 05/29/2013 documented as of this encounter (statuses as of 07/07/2022) Medications Medication Sig Dispensed Refills Start Date [...] as of this encounter (statuses as of 07/07/2022) Active Problems Problem Noted Date Family history of [place] (myocardial infarct ion) 02/18/2021 Hyperthyroidism 02/18/2021 Anxiety 02/18/2021 Graves disease 02/18/2021 Other allergic rhinitis 07/30/2001 Overview: ICD-10 update of inactive term Asthma with severity to be determined Overview: ICD-10 update of inactive term ATTN DEFIC NONHYPERACT 01/24/2000 EXT ASTHMA W-O STAT ASTH Dysmenorrhea documented as of this encounter (statuses as of 07/07/2022) Resolved Problems Problem Noted Date Resolved Date [...] as of this encounter (statuses as of 07/07/2022) Immunizations Name Administration Dates Next Due DT [...] When was patient seen: 07/03/22 Which ED: [facility] What were they seen for: Back pain [...] concerns today: She work for [employer] at [employer] 3rd shift. She was given an excuse [...] follow up appt. Caller was transferred to [facility] at the nurse line. * Telephone Encounter - EDE Hernandez - 07/06/2022 8:24 AM EDT Patient was seen in ED. Please see call details. 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
--- OUTSIDE RECORDS SUMMARY | 2023-08-25 07:38 | External Medical Summary | Summary of Care ---
Author Name Unknown Organization [place] [address] Care Team Providers Care Child Advocate Name Role Phone Jethro Stevens DO Primary Care Provider Reason for Visit * Reason Comments Outpatient Testing Encounter Details Date Type Department Care Team Description 05/13/2022 Laboratory Laboratory, [facility] [address] [facility] [id number] [facility] [address] [place] [address] Graves disease; Thyroid nodule Allergies Active Allergy Reactions Severity Noted Date Comments Pollen 05/29/2013 Peanut Oil 05/29/2013 documented as of this encounter (statuses as of 05/13/2022) Medications Medication Sig Dispensed Refills Start Date [...] before bedtime. 60 Tablet 5 02/17/2022 Active methIMAzole 5 MG Oral Tablet (Tapazole)Indicatio ns:Graves disease TAKE ONE TABLET BY MOUTH EVERY DAY 30 Tablet 5 04/25/2022 Active Phentermine HCl 15 MG Oral Capsule Take by mouth 1 Capsule in the morning. 30 Capsule 0 04/26/2022 Active documented as of this encounter (statuses as of 05/13/2022) Active Problems Problem Noted Date Family history of [place] (myocardial infarct ion) 02/18/2021 Hyperthyroidism 02/18/2021 Anxiety 02/18/2021 Graves disease 02/18/2021 Other allergic rhinitis 07/30/2001 Overview: ICD-10 update of inactive term Asthma with severity to be determined Overview: ICD-10 update of inactive term ATTN DEFIC NONHYPERACT 01/24/2000 EXT ASTHMA W-O STAT ASTH Dysmenorrhea documented as of this encounter (statuses as of 05/13/2022) Resolved Problems Problem Noted Date Resolved Date [...] as of this encounter (statuses as of 05/13/2022) Immunizations Name Administration Dates Next Due DT [...] Encounters Date Type Specialty Care Team Description 05/13/2022 Imaging Radiology Arrived 06/09/2022 Office Visit Family Medicine [facility] [address] [facility] [address] 09/05/2022 Telemedicine Endocrinology Francis Clark CRNP [address] [place] [facility] [place] [address] Pending Results Name Type Priority Associated Diagnoses Date /Time TSH Lab Routine Graves disease 05/13/2022 12:23 PM EDT T4, FREE Lab Routine Graves disease 05/13/2022 12:23 PM EDT T3, FREE Lab Routine Graves disease 05/13/2022 12:23 PM EDT TSI (THYROID STIMULATING IMMUNOGLOBULIN) Lab Routine Graves disease Thyroid nodule 05/13/2022 12:23 PM EDT Health Maintenance Due Date Last [...] without mention of thyrotoxic crisis or storm Thyroid nodule Nontoxic uninodular goiter documented in this encounter Advance Directives Documents on File Type Date Recorded 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
--- OUTSIDE RECORDS SUMMARY | 2023-08-25 07:38 | External Medical Summary | Summary of Care ---
Author Name Unknown Organization [place] [address] Care Team Providers Care Cellophane Press Operator Name Role Phone Jethro Stevens DO Primary Care Provider Reason for Referral * Evaluate & Treat - Unlimited Visits (Within 10 days (routine)) - Pending Review Specialty Diagnoses / Procedures Referred By Contjessica t Referred To Contact Physical Therapy / Physical Medicine And Rehab Diagnoses Acute bilateral low back pain with left-sided sciatica Jethro Stevens DO [address] [address] Referral ID Status Reason Start Date Expiration Date Visits Requested Visits Authorized [id number] Pending Review Specialty Services Required 06/15/[phone] Question Answer Referral Priority Within 10 days (routine) Comments Please treat for ongoing low back pain Patient has excellent prognosis but needs to continue PT for at least 4-6 total weeks before transitioning to her self Reason for Visit * Reason Comments Re-Check pinched back 05/22/22, still doing pt, pain continues on R side, ref needed for continued PT Encounter Details Date Type Department Care Team Description 06/15/2022 Office Visit Family Practice [facility] [address] [address] Jethro Stevens DO [address] [address] Acute bilateral low back pain with left-sided sciatica*; Insulin resistance Allergies Active Allergy Reactions Severity Noted Date Comments Pollen 05/29/2013 Peanut Oil 05/29/2013 documented as of this encounter (statuses as of 06/15/2022) Medications Medication Sig Dispensed Refills Start Date [...] the morning. 30 Capsule 0 05/26/2022 Active Ozempic (0.25 or 0.5 MG/DOSE) 2 MG/1.5ML Solution Pen-injector (Semaglutide(0.25 or 0.5MG/DOS))Indicati ons:Insulin resistance Inject under the skin 0.25 mg once a week . 3 mL 3 06/15/2022 Active documented as of this encounter (statuses as of 06/15/2022) Active Problems Problem Noted Date Family history of [place] (myocardial infarct ion) 02/18/2021 Hyperthyroidism 02/18/2021 Anxiety 02/18/2021 Graves disease 02/18/2021 Other allergic rhinitis 07/30/2001 Overview: ICD-10 update of inactive term Asthma with severity to be determined Overview: ICD-10 update of inactive term ATTN DEFIC NONHYPERACT 01/24/2000 EXT ASTHMA W-O STAT ASTH Dysmenorrhea documented as of this encounter (statuses as of 06/15/2022) Resolved Problems Problem Noted Date Resolved Date [...] as of this encounter (statuses as of 06/15/2022) Immunizations Name Administration Dates Next Due DT [...] Reading Time Taken Comments Blood Pressure 122/78 06/15/2022 11:48 AM EDT Pulse 80 06/15/2022 11:48 AM EDT Temperature 37.3 °C (99.1 °F) 06/15/2022 11:48 AM E DT Respiratory Rate 16 06/15/2022 11:48 AM EDT Oxygen Saturation - - Inhaled Oxygen Concentration - - Weight 93 kg (205 lb) 06/15/2022 11:48 AM EDT Height - - Body Mass Index 37.49 06/10/2022 10:37 AM EDT documented in this encounter Progress Notes * Jethro Stevens, DO - 06/15/2022 11:49 AM EDT Images from the original note were not included. Assessment and Plan Acute bilateral low back pain with left-sided sciatica Improving strength and ROM in PT , but pain still slow to improve I have full confidence that the pain will follow in time, but needs more time out of work in PT (1-2 more weeks) until that happens - PHYSICAL THERAPY REFERRAL OP - RETURN TO WORK OR SCHOOL Insulin resistance Gestational DM, elevation in A1C, and need to improve glycemic control Will initiate ozempic and titrate up as tolerated - Ozempic (0.25 or 0.5 MG/DOSE) 2 MG/1.5ML Solution Pen-injector (Semaglutide(0.25 or 0.5MG/DOS)); Inject under the skin 0.25 mg once a week . History of Present Illness Starr Dove is a 36 year old female that presents for Re-Check (pinched back 05/22/22, still doingpt, pain continues on R side, ref needed for continued PT) Presents in f/u today Having ongoing low back pain And dysfunction Improving through PT and she Has been engaging well in that hard work Physical Exam Vitals: 06/15/22 1148 Temp: 37.3 °C (99.1 °F) Pulse: 80 Resp: 16 BP: 122/78 Physical Exam Constitutional: Appearance: Normal appearance. HENT: Head: Normocephalic and atraumatic. Eyes: Extraocular Movements: Extraocular movements intact. Pupils: Pupils are equal, round, and reactive to light. Musculoskeletal: General: Tenderness present. Neurological: General: No focal deficit present. Mental Status: She is alert and oriented to person, place, and time. Psychiatric: Mood and Affect: Mood normal. Behavior: Behavior normal. Wrap-Up Time: Total time today was 25 minutes excluding any time spent in the performance of separately billed services. documented in this encounter Nursing Notes * Comfort Britt RN - 06/15/2022 11:50 AM EDT The patient has been properly identified by confirmation of name and date of . Chief Complaint Patient presents with • Re-Check pinched back 05/22/22, still doing pt, pain continues on R side, ref needed for continued PT documented in this encounter Plan of Treatment Upcoming Encounters Date Type Specialty Care Team Description 09/05/2022 Telemedicine Endocrinology Francis Clark CRNP [address] [place] [address] Scheduled Referrals Name Type Priority Associated Diagnoses Orde r Schedule PHYSICAL THERAPY REFERRAL OP Referral Within 10 days (routine) Acute bilateral low back pain with left-sided sciatica Ordered: 06/15/2022 Health Maintenance Due Date Last Done Comments [...] of this encounter Visit Diagnoses Diagnosis Acute bilateral low back pain with left-sided sciatica- Primary Insulin resistance Dysmetabolic Syndrome X documented in this encounter Advance Directives Documents on File Type Date Recorded 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
--- OUTSIDE RECORDS SUMMARY | 2023-08-25 07:38 | External Medical Summary | Summary of Care ---
Author Name Unknown Organization [place] [address] Care Team Providers Care Laser Machine Operator Name Role Phone Rodney Jethro Floresrip Primary Care Provider Reason for Visit * Reason Onset Date Comments Medication Refill 04/25/2022 Encounter Details Date Type Department Care Team Description 04/25/2022 Refill Nutrition & Weight Management, [place] [address] [place] [address] Morgan Kenny MD [address] [place] [address] Allergies Active Allergy Reactions Severity Noted Date Comments Pollen 05/29/2013 Peanut Oil 05/29/2013 documented as of this encounter (statuses as of 04/26/2022) Medications Medication Sig Dispensed Refills Start Date [...] 02/17/2022 Active methIMAzole 5 MG Oral Tablet (Tapazole)Indicat ions:Graves disease TAKE ONE TABLET BY MOUTH EVERY DAY 30 Tablet 5 04/25/2022 Active Phentermine HCl 15 MG Oral Capsule Take by mouth 1 Capsule in the morning. 30 Capsule 0 04/26/2022 Active Phentermine HCl 15 MG Oral Capsule Take by mouth 1 Capsule in the morning. 30 Capsule 0 04/07/2022 Discontinue d(Refill) documented as of this encounter (statuses as of 04/26/2022) Active Problems Problem Noted Date Family history of [place] (myocardial infarct ion) 02/18/2021 Hyperthyroidism 02/18/2021 Anxiety 02/18/2021 Graves disease 02/18/2021 Other allergic rhinitis 07/30/2001 Overview: ICD-10 update of inactive term Asthma with severity to be determined Overview: ICD-10 update of inactive term ATTN DEFIC NONHYPERACT 01/24/2000 EXT ASTHMA W-O STAT ASTH Dysmenorrhea documented as of this encounter (statuses as of 04/26/2022) Resolved Problems Problem Noted Date Resolved Date [...] as of this encounter (statuses as of 04/26/2022) Immunizations Name Administration Dates Next Due DT [...] Telephone Encounter - Morgan Kenny MD - 04/26/2022 4:24 PM EDT Signed Prescriptions: Disp Refills Phentermine HCl 15 MG Oral Capsule 30 Cap*0 Sig: Take by mouth 1 Capsule in the morning. Authorizing Provider: MORGAN KENNY * Telephone Encounter - EDE Esquivel - 04/25/2022 9:51 AM EDT Pending Prescriptions: Disp Refills Phentermine HCl 15 MG Oral Capsule 30 Cap*0 Sig: Take by mouth 1 Capsule in the morning. documented in this encounter Plan of Treatment Upcoming Encounters Date Type Specialty Care Team Description 05/09/2022 Telemedicine Endocrinology Francis Clark CRNP [address] [place] [address] 06/09/2022 Office Visit Family Medicine Jethro Stevens, [address] [place] [address] Health Maintenance Due Date Last Done Comments [...] Documents on File Type Date Recorded Patient Sourcing Assistant Expl anation Advanced Directive Advanced Directive Advanced [...] Directive Advanced Directive Advanced Directive Care Teams Laser Machine Operator Relationship Specialty Start Date End Date [facility]ro Stevens DO [address] [facility] [place] [address] PCP - General Family Medicine 02/18/21 documented as of this encounter
--- OUTSIDE RECORDS SUMMARY | 2023-08-25 07:38 | External Medical Summary ---
Author Name Unknown Address Unknown Organization K01:[facility] [address] [place] [address] Laboratory Report Ordering Provider Test Date Status MAGALY ESCAMILLA 05/13/2022 12:23:41 Final Observation Date Value Abnormality Reference (Units ) Status T3, Free 05/13/2022 12:23:41 3.4 2.5-4.3 (p g/mL) Final Performing Location [facility] [address] [place] [address]
--- OUTSIDE RECORDS SUMMARY | 2023-08-25 07:38 | External Medical Summary | Summary of Care ---
Author Name Unknown Organization [place] [address] Care Team Providers Care Brew House Supervisor Name Role Phone Rodney Jethro Floresrip Primary Care Provider Reason for Visit * Reason Comments Hyperthyroidism Encounter Details Date Type Department Care Team Description 05/09/2022 [facility] Endocrinology, [place] [address] [place] [address] Francis Clark CRNP [address], [place] [id number] Graves disease*; Thyroid nodule Allergies Active Allergy Reactions Severity Noted Date Comments Pollen 05/29/2013 Peanut Oil 05/29/2013 documented as of this encounter (statuses as of 05/09/2022) Medications Medication Sig Dispensed Refills Start Date [...] as of this encounter (statuses as of 05/09/2022) Active Problems Problem Noted Date Family history of [place] (myocardial infarct ion) 02/18/2021 Hyperthyroidism 02/18/2021 Anxiety 02/18/2021 Graves disease 02/18/2021 Other allergic rhinitis 07/30/2001 Overview: ICD-10 update of inactive term Asthma with severity to be determined Overview: ICD-10 update of inactive term ATTN DEFIC NONHYPERACT 01/24/2000 EXT ASTHMA W-O STAT ASTH Dysmenorrhea documented as of this encounter (statuses as of 05/09/2022) Resolved Problems Problem Noted Date Resolved Date [...] as of this encounter (statuses as of 05/09/2022) Immunizations Name Administration Dates Next Due DT [...] of this encounter Progress Notes * KIRSTEN Bush - 05/09/2022 3:30 PM EDT Images from the original note were not included. Patient location: HOME. I was in a hospital or clinic location. After connecting through televideo,patient was verified with two unique identifiers. Patient (or authorized legal advertising account representative) was then informed that this was a Telemedicine visit and being conducted confidentially over secure lines. Methods to assure confidentiality were taken. Patient acknowledged consent and understanding of pr ivacy and security of the Telemedicine visit. The patient agreed to participate. This 36 year old female, Starr Dove, is seen today for follow up of Graves disease Thyroid history: Seen by direct mail marketer in the past advised she had mild Graves disease, no meds- had uptake and scan d/t abnormal labs, fatigue, mood changes, and weight fluctuation - Normal results Saw PCP - complaints of anxiety and weight issues - started on Methimazole last year + propranolol due to supressed TSH and elevated FT3/FT4; Positive TSI = Graves History of radiation exposure: Denies Family history of thyroid disorders: Hypothyroidism - aunt, cousin Last visit: 04/08/21 Current Regimen: Methimazole 5mg daily She takes it first thing in the [...] improved (+) Changes in weight - weight gain (-) Eye problems/bulging (-) Constipation/diarrhea (-) changes [...] used Substance Use Topics • Alcohol use: No • Drug use: No Family History Family [...] of 05/09/2022 15:28 Ref. Range 03/23/2021 07:28 05/14/2021 15:22 09/16/2021 10:34 12/29/2021 15:18 04/06/2022 07:55 TSH Latest Ref Range: 0.27 - 4.20 uIU/mL 0.03 (L) 1.40 1.65 1.43 1.19 T4, Free Latest Ref Range: 0.9 - 1.7 ng/dL 1.0 1.0 0.9 1.1 1.0 T3, Free Latest Ref Range: 2.5 - 4.3 pg/mL 3.3 2.8 3.0 3.5 3.2 Imaging: NM thyroid scan did not show [...] demonstrating normal thyroid uptake and function. EXAM: Thyroid sonogram 12/16/2020 HISTORY: 35-year-old woman with hyperthyroidism. Patient states she had radiation therapy to thyroid last year. Patient complains of dysphagia. TECHNIQUE: Multiple high-resolution scans were taken. COMPARISON: None FINDINGS: The thyroid is enlarged, right lobe larger than left. Right lobe measured 5.0 x 1.9 x 2.3 cm. Left lobe measured 4.4 x 1.4 x 2.1 cm. Isthmus measures 3 mm. The gland is inhomogeneous in echogenicity and there is prominent blood flow in each lobe. There is a subcentimeter nodule in the isthmus measuring 8 x 3 x 5 mm.. The overall appearance may suggest Dmitry's thyroiditis. Multinodular gland/goiter is also in the differential. No lymphadenopathy is seen. 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 Also in the differential diagnosis is multinodular gland/goiter. Subcentimeter hypoechoic nodule in isthmus Impression/Plan 1. Graves disease 2. Thyroid nodule [...] thyroid labs. May consider decreasing her methimazole in near future. Also discussed definitive options interms of her Graves disease in the past. She denies any eye issues currently. Recommended that she decrease her BB to daily versus BID dosing. Small subcentimer nodule noted on last U/S - will obtainU/S. - Decrease Methimazole 2.5mg daily - Decrease Propranolol 10mg daily - Lab work: TSH, FT3, FT4, TSI - Thyroid U/S Advised to avoid caffeine, pseudoephedrine and other stimulants Dr. Soto was available in the clinic at the time of this office visit. Follow Up: Return in about 4 months (around 09/08/2022) for Thyroid f/u. | For: Thyroid f/u I spent a total of 30 minutes caring for this patient including reviewing the chart, gathering the history, performing visual inspection, ordering and reconciling medications, ordering tests, performing counseling, and coordinating care. KIRSTEN Bush [facility] [address] cc: PCP: DEB DAVIS [address] [place] [address] Hospitalist Services [place] [address] documented in this encounter Plan of Treatment Upcoming Encounters Date Type Specialty Care Team Description 06/09/2022 Office Visit Family Medicine Jethro Stevens DO [address] [place] [id number] Scheduled Orders Name Type Priority Associated Diagnoses Orde r Schedule TSI (THYROID STIMULATING IMMUNOGLOBULIN) Lab Routine Graves disease Thyroid nodule Expected: 05/09/2022 (Approximate), Expires: 05/09/2023 US HEAD AND NECK Medical Imaging Routine Thyroid nodule Ordered: 05/09/2022 Health Maintenance Due Date Last Done Comments [...] Documents on File Type Date Recorded Patient Recruitment Internship Expl anation Advanced Directive Advanced Directive Advanced [...] Directive Advanced Directive Advanced Directive Care Teams Brew House Supervisor Relationship Specialty Start Date End Date Jethro Stevens, [address] [place] [address] PCP - General Family Medicine 02/18/21 documented as of this encounter"
--- OUTSIDE RECORDS SUMMARY | 2023-08-25 07:38 | External Medical Summary | Summary of Care ---
Author Name Unknown Organization [place] [address] Care Team Providers Care Employment Director Name Role Phone Jethro Stevens DO Primary Care Provider Reason for Visit * Reason Comments Follow Up pt here for follow u p on injury. pt states she injurred back 3 weeks ago and in still in PT. pt states her employer is requiring her to get a work note Encounter Details Date Type Department Care Team Description 06/10/2022 Office Visit Family Practice [facility] [address] [facility] [place] [address] Steff Henderson CRNP [address] [facility] [place] [address] Acute bilateral low back pain with left-sided sciatica* Allergies Active Allergy Reactions Severity Noted Date Comments Pollen 05/29/2013 Peanut Oil 05/29/2013 documented as of this encounter (statuses as of 06/10/2022) Medications Medication Sig Dispensed Refills Start Date [...] as of this encounter (statuses as of 06/10/2022) Active Problems Problem Noted Date Family history of [place] (myocardial infarct ion) 02/18/2021 Hyperthyroidism 02/18/2021 Anxiety 02/18/2021 Graves disease 02/18/2021 Other allergic rhinitis 07/30/2001 Overview: ICD-10 update of inactive term Asthma with severity to be determined Overview: ICD-10 update of inactive term ATTN DEFIC NONHYPERACT 01/24/2000 EXT ASTHMA W-O STAT ASTH Dysmenorrhea documented as of this encounter (statuses as of 06/10/2022) Resolved Problems Problem Noted Date Resolved Date [...] as of this encounter (statuses as of 06/10/2022) Immunizations Name Administration Dates Next Due DT [...] Sign Reading Time Taken Comments Blood Pressure 122/80 06/10/2022 10:37 AM EDT Pulse 72 06/10/2022 10:37 AM EDT Temperature 36.2 °C (97.2 °F) 06/10/2022 10:37 AM E DT Respiratory Rate 16 06/10/2022 10:37 AM EDT Oxygen Saturation - - Inhaled Oxygen Concentration - - Weight 92.7 kg (204 lb 6 oz) 06/10/2022 10:37 AM EDT Height 157.5 cm (5' 2") 06/10/2022 10:37 AM EDT Body Mass Index 37.38 06/10/2022 10:37 AM EDT documented in this encounter Progress Notes * KIRSTEN Tran - 06/10/2022 10:56 AM EDT Patient being managed by Dr. Stevens. Will defer further eval and work related absence to PCP. Note was already faxed on 06/07/2022. Patient has follow up appt on 06/15/2022. Fax number [phone] Visit deferred today- patient agreeable. documented in this encounter Nursing Notes * Palma Villanueva LPN - 06/10/2022 10:37 AM EDT The patient has been properly identified by confirmation of name and date of . Chief Complaint Patient presents with • Follow Up pt here for follow up on injury. pt states she injurred back 3 weeks ago and in still in PT. pt states her employer is requiring her to get a work note documented in this encounter Plan of Treatment Upcoming Encounters Date Type Specialty Care Team Description 06/15/2022 Office Visit Family Medicine Jethro Stevens, [address] [facility] [place] [address] 09/05/2022 Telemedicine Endocrinology Francis Clark CRNP [address] [place] [address] Health Maintenance Due Date Last Done Comments [...] 04/08/2022, 0 06/19/2021, 03/23/2021, Additional history exists Hepatitis B Completed 02/25/1997, [...] low back pain with left-sided sciatica- Primary documented in this encounter Advance Directives Documents on File Type Date Recorded Patient Supervisor [employer] Expl anation Advanced Directive Advanced Directive Advanced [...] Directive Advanced Directive Advanced Directive Care Teams Employment Director Relationship Specialty Start Date End Date Jethro Stevens DO [address] [facility] [place] [address] PCP - General Family Medicine 02/18/21 documented as of this encounter
--- OUTSIDE RECORDS SUMMARY | 2023-08-25 07:38 | External Medical Summary ---
Author Name Unknown Address Unknown Organization K01:[facility] [address] [facility] [address] [place] [address] Laboratory Report Ordering Provider Test Date Status MAGALY ESCAMILLA 05/13/2022 12:23:41 Final Observation Date Value Abnormality Reference (Units ) Status TSH 05/13/2022 12:23:41 1.54 0.27-4.20 (uIU/mL) Final Performing Location [facility] - [address] [place] [address]
--- OUTSIDE RECORDS SUMMARY | 2023-08-25 07:38 | External Medical Summary ---
Author Name Unknown Address Unknown Organization : Laboratory Report Ordering Provider Test Date Status MAGALY ESCAMILLA 05/13/2022 12:23:41 Final Observation Date Value Abnormality Reference (Units ) Status Thyroid stimulating immunoglobulins [Units/volume] in Serum 05/13/2022 12:23:41 <89 <140 (% baseline) Final Performing Location
--- OUTSIDE RECORDS SUMMARY | 2023-08-25 07:38 | External Medical Summary | Summary of Care ---
Author Name Unknown Organization [facility] Address [place] [address] Care Team Providers Care Coupler Name Role Phone Jethro Stevens Primary Care Provider Encounter Details Date Type Department Care Team Description 06/16/2022 External Data Patient Risk Medial Allergies Active Allergy Reactions Severity Noted Date Comments Pollen 05/29/2013 Peanut Oil 05/29/2013 documented as of this encounter (statuses as of 06/24/2022) Medications Medication Sig Dispensed Refills Start Date [...] as of this encounter (statuses as of 06/24/2022) Active Problems Problem Noted Date Family history of [place] (myocardial infarct ion) 02/18/2021 Hyperthyroidism 02/18/2021 Anxiety 02/18/2021 Graves disease 02/18/2021 Other allergic rhinitis 07/30/2001 Overview: ICD-10 update of inactive term Asthma with severity to be determined Overview: ICD-10 update of inactive term ATTN DEFIC NONHYPERACT 01/24/2000 EXT ASTHMA W-O STAT ASTH Dysmenorrhea documented as of this encounter (statuses as of 06/24/2022) Resolved Problems Problem Noted Date Resolved Date [...] as of this encounter (statuses as of 06/24/2022) Immunizations Name Administration Dates Next Due DT [...] drink = 0.6 oz pur e alcohol) [facility] Alcohol Habits Answer Date Recorded How often [...] Telemedicine Endocrinology Francis Clark CRNP [address] [place] [address] Health Maintenance Due Date Last Done Comments [...] Documents on File Type Date Recorded Patient Flue Cleaner Expl anation Advanced Directive Advanced Directive Advanced [...] Directive Advanced Directive Advanced Directive Care Teams Coupler Relationship Specialty Start Date End Date Jethro Stevens DO [address] [place] [address] PCP - General Family Medicine 02/18/21 documented as of this encounter
--- OUTSIDE RECORDS SUMMARY | 2023-08-25 07:39 | External Medical Summary | Summary of Care ---
Author Name Unknown Organization [place] [address] Care Team Providers Care Demurrage Agent Name Role Phone Jethro Stevens DO Primary Care Provider Reason for Visit * Reason Onset Date Comments Referral 04/01/2022 Encounter Details Date Type Department Care Team Description 04/01/2022 Telephone Family Practice [facility] [address] [facility] [place] [address] Ivania Da Silva CRNP [address] [facility] [place] [address] Referral Allergies Active Allergy Reactions Severity Noted Date Comments Pollen 05/29/2013 Peanut Oil 05/29/2013 documented as of this encounter (statuses as of 04/04/2022) Medications Medication Sig Dispensed Refills Start Date End Date Status IBUPROFEN 600 MG PO TABS None Entered 0 Active SUMATRIPTAN SUCCINATE 50 MG PO TABSIndications:Junior cid with intractable migraine 1 TABLET 1 TIME ONLY,REPEAT AFTER 2 HR NEEDED 30 Tab 3 11/12/2013 Active methIMAzole 5 MG Oral Tablet (Tapazole)Indicatio ns:Graves disease Take 1 Tablet by mouth daily. 30 Tablet 5 09/27/2021 Active hydrOXYzine HCl 50 MG Oral TabletIndications:A [...] before bedtime. 60 Tablet 5 02/17/2022 Active documented as of this encounter (statuses as of 04/04/2022) Active Problems Problem Noted Date Family history of [place] (myocardial infarct ion) 02/18/2021 Hyperthyroidism 02/18/2021 Anxiety 02/18/2021 Graves disease 02/18/2021 Other allergic rhinitis 07/30/2001 Overview: ICD-10 update of inactive term Asthma with severity to be determined Overview: ICD-10 update of inactive term ATTN DEFIC NONHYPERACT 01/24/2000 EXT ASTHMA W-O STAT ASTH Dysmenorrhea documented as of this encounter (statuses as of 04/04/2022) Resolved Problems Problem Noted Date Resolved Date Encounter for supervision of other normal pregna ncy 05/29/2013 10/10/2013 Overview: Transfer of Care; Records received 02/22/13: glucose 95; Hep BsAg neg; Hep C ab-nonreactive; HIV nonreactive; RPR nonreactive; rubella immune; O+, antibody negative 03/05/13- chlamydia negative, gonorrhea negative Patient received flu vaccine. 08/08/2013 Charlee Souza RN GBS Negative KIRSTEN iRos, MARGARITA 09/30/2013 ICD-10 update of inactive term documented as of this encounter (statuses as of 04/04/2022) Immunizations Name Administration Dates Next Due DT [...] Miscellaneous Notes * Telephone Encounter - EDE Randall - 04/01/2022 9:11 AM EDT GI Nutrition was scheduled. Will send to endocrinology to assist in f/u appt * Telephone Encounter - EDE Randall - 04/01/2022 8:28 AM EDT LM for pt to call to schedule an appt with GI Nutrition. Also needs endocrinology f/u pre check out note documented in this encounter Plan of Treatment Upcoming Encounters Date Type Specialty Care Team Description 04/07/2022 Telemedicine Gastroenterology Kelli Flores MD [address] [place] [address] 05/09/2022 Telemedicine Endocrinology Francis Clark, VETERINARY PHYSIOLOGIST [address] [place] [address] 06/09/2022 Office Visit Family Medicine Jethro Stevens, [address] [facility] [place] [address] Health Maintenance Due Date Last Done Comments COVID-19 Vaccine (1) 1990 Pneumococcal Vaccine: Pediatrics (0 to 5 [...] Documents on File Type Date Recorded Patient Fashion Editor Expl anation Advanced Directive Advanced Directive Advanced [...] Directive Advanced Directive Advanced Directive Care Teams Demurrage Agent Relationship Specialty Start Date End Date Jethro Stevens DO [address] [place] [address] PCP - General Family Medicine 02/18/21 documented as of this encounter
--- OUTSIDE RECORDS SUMMARY | 2023-08-25 07:39 | External Medical Summary | Summary of Care ---
Author Name Unknown Organization [place] [address] Care Team Providers Care Kitchen Chef Name Role Phone Jethro Stevens DO Primary Care Provider Encounter Details Date Type Department Care Team Description 12/30/2021 Telemedicine Nutrition & Weight Management, [place] [address] [place] [address] Feli Ceballos PA-C [address] [place], [place] [id number] Obesity, Class I, BMI 30.0-34.9 (see actual BMI)* Allergies Active Allergy Reactions Severity Noted Date Comments Pollen 05/29/2013 Peanut Oil 05/29/2013 documented as of this encounter (statuses as of 12/31/2021) Medications Medication Sig Dispensed Refills Start Date End Date Status IBUPROFEN 600 MG PO TABS None Entered 0 Active SUMATRIPTAN SUCCINATE 50 MG PO TABSIndications:M igraine with intractable migraine 1 TABLET 1 TIME ONLY,REPEAT AFTER 2 HR NEEDED 30 Tab 3 11/12/2013 Active Ozempic (0.25 or 0.5 MG/DOSE) 2 MG/1.5ML Solution Pen-injector (Semaglutide(0.25 or 0.5MG/DOS)) Inject 0.25 mg under the skin once a week. 1.5 mL 1 08/03/2021 Active buPROPion HCl ER (XL) 150 MG Oral Tablet Extended Release 24 Hour (Wellbutrin XL)Indications:Ob esity, Class II, BMI 35-39.9, isolated (see actual BMI) Take 1 in am. and 1 around 3:00 p.m. 180 Tab 5 08/06/2021 Active Naltrexone HCl 50 MG Oral Tablet (Revia)Indication s:Obesity, Class II, BMI 35-39.9, isolated (see actual BMI) Take 0.5 Tabs by mouth 2 times a day. 90 Tab 0 08/06/2021 Active Propranolol HCl 20 MG Oral Tablet (Inderal)Indicati ons:Graves disease,Hyperthyr oidism Take 1 Tab by mouth 2 times a day. 60 Tab 5 09/08/2021 Active methIMAzole 5 MG Oral Tablet (Tapazole)Indicat ions:Graves disease Take 1 Tablet by mouth daily. 30 Tablet 5 09/27/2021 Active hydrOXYzine HCl 50 MG Oral TabletIndications :Anxiety TAKE ONE TABLET BY MOUTH EVERY 6 HOURS NEEDED FOR ANXIETY 40 Tablet 3 10/29/2021 Active Benzonatate 100 MG Oral Capsule (Tessalon Perles) Take 1 Capsule by mouth 3 times a day as needed for Cough. 30 Capsule 1 11/26/2021 Active Albuterol Sulfate HFA 108 (90 Base) MCG/ACT Inhalation Aerosol Solution Inhale 2 Puffs by mouth every 4 hours as needed for Cough, Shortness of Breath or Wheezing. 18 g 3 11/26/2021 Active Phentermine HCl 30 MG Oral Capsule (Fastin) Take by mouth 1 Capsule in the morning. 30 Capsule 0 12/30/2021 Active Phentermine HCl 15 MG Oral Capsule Take 1 Capsule by mouth daily. 30 Capsule 0 12/10/2021 2 Discontinued documented as of this encounter (statuses as of 12/31/2021) Active Problems Problem Noted Date Family history of [place] (myocardial infarct ion) 02/18/2021 Hyperthyroidism 02/18/2021 Anxiety 02/18/2021 Graves disease 02/18/2021 Other allergic rhinitis 07/30/2001 Overview: ICD-10 update of inactive term Asthma with severity to be determined Overview: ICD-10 update of inactive term ATTN DEFIC NONHYPERACT 01/24/2000 EXT ASTHMA W-O STAT ASTH Dysmenorrhea documented as of this encounter (statuses as of 12/31/2021) Resolved Problems Problem Noted Date Resolved Date [...] as of this encounter (statuses as of 12/31/2021) Immunizations Name Administration Dates Next Due DT [...] as of this encounter Progress Notes * Feli Ceballos PA-C - 12/30/2021 4:09 PM EST After connecting to the patient via telephone, the patient was identified by name and date of . Patient was then informed that this was a telephone call only visit. The patient agreed to participate. Visit Disposition: Routine follow-up Total call duration was 15 minutes. Patient did sign on for tele visit-however provider was running approximately 12 minute late. Patient needed to sign off to pick up man her children. Provider called patient on her cell phone and agreed for phone visit [facility] NOTE Referring Physician: DO Starr Montemayor Derrell is a 36 year old patient with a past medical history for :] Past Medical History: Diagnosis Date • Allergic rhinitis due to other allergen immunotherapy for 2 years • Asthma, allergic exercise component • Attention deficit disorder without hyperactivity • Graves disease • Reactive depression who presents [facility] for further recommendations. I initially saw patient August 03, 2021 Her weight at that time was 210 lb Today she reports her weight is about the same. Last visit we wanted to try Ozempic to help with weight management, however her insurance did not approve it. Prior to our consult her PCP did start her on Wellbutrin and naltrexone. When we found at Ozempic was denied. We increased her Wellbutrin and naltrexone to 150 mg twice daily and 25 mg twice daily respectively There was no change in her appetite with the Wellbutrin and naltrexone so we stop the naltrexone. We started the phentermine last visit. Feels like she has little bit more energy is not sure if shehas lost any weight yet. She was having more sweating. So her PCP stopped her Wellbutrin Feels better less sweating Patient has not noted any change in her appetite or weight She reports that she has started decreasing her carbohydrate intake\ She is more active with it being hunting season Her Graves disease has been controlled Current Diet: Describes typical diet history/24 hr recall Breakfast: coffee, oatmeal Snacks: - Lunch: packs left overs. Snacks: fruits Dinner: some on the go. 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 30 Capsule 0 • IBUPROFEN 600 MG PO TABS None Entered • SUMATRIPTAN SUCCINATE 50 MG PO TABS 1 TABLET 1 TIME ONLY,REPEAT AFTER 2 HR NEEDED 30 Tab 3 • Ozempic (0.25 or 0.5 MG/DOSE) 2 MG/1.5ML Solution Pen-injector (Semaglutide(0.25 or 0.5MG/DOS))Inject 0.25 mg under the skin once a week. 1.5 mL 1 • buPROPion HCl ER (XL) 150 MG Oral Tablet Extended Release 24 Hour (Wellbutrin XL) Take 1 in am.and 1 around 3:00 p.m. 180 Tab 5 • Naltrexone HCl 50 MG Oral Tablet (Revia) Take 0.5 Tabs by mouth 2 times a day. 90 Tab 0 • Propranolol HCl 20 MG Oral Tablet (Inderal) Take 1 Tab by mouth 2 times a day. 60 Tab 5 • methIMAzole 5 MG Oral Tablet (Tapazole) Take 1 Tablet by mouth daily. 30 Tablet 5 • hydrOXYzine HCl 50 MG Oral Tablet TAKE ONE TABLET BY MOUTH EVERY 6 HOURS NEEDED FOR ANXIETY 40 Tablet 3 • Benzonatate 100 MG Oral Capsule (Tessalon Perles) Take 1 Capsule by mouth 3 times a day as needed for Cough. 30 Capsule 1 • Albuterol Sulfate HFA 108 (90 Base) MCG/ACT Inhalation Aerosol Solution Inhale 2 Puffs by mouthevery 4 hours as needed for Cough, Shortness of Breath or Wheezing. 18 g 3 No current facility-administered medications for this visit. Social History: Alcohol: Infrequent Tobacco Use: No Drug Use: No Review of Systems: Constitutional: (-) fever chills sweats or weight loss Eyes: Glaucoma No Cardiovascular: No chest pain, No shortness of breath, No dyspnea on exertion, No orthopnea, No edema and No syncope Hypertension: No BP Readings from Last 3 Encounters: 04/20/21 102/68 02/18/21 108/72 12/25/20 112/78 CAD: No Pulmonary Asthma: Yes COPD: No There are no exam notes on file for this visit. Sleep Apnea: possibly Endocrine: Yes - Graves Patient denies personal or family history of medullary thyroid carcinoma. Patient denies personal or family history of multiple endocrine neoplasia syndrome. Insulin Resistance: Yes Diabetes: No - Hemoglobin AIC Results: No components found for: [id number] Dyslipidemia: No Lipid Panel Results: GI: No abdominal pain, No change in bowel habits, No significant heartburn, No significant change in appetite, No nausea, vomiting, diarrhea, or constipation, No hematemesis, No blood in stools or black tarry stools, No abdominal bloating or early satiety and No dysphagia GERD: No Fatty Liver: no Renal History of nephrolithiasis: No. Musculoskeletal Osteoarthritis: No Functional Status: NO Impairment Reproductive Polycystic ovarian syndromeNo: Menstrual Cycle: Yes, - Control: No Neuro Stroke: No Seizures: No Pseudotumor: No Headache: Yes PSYCHOSOCIAL: Depression: Stable Taking medication and Other Confirmed Mental Health Diagnosis: anxiety/panic disorder Physical Examination: There were no vitals taken for this visit. NAD NC/AT Normal WOB/ no audible wheeze Mood and speech normal Assessment and Recommendation: Ms. Dove is a 36 year old patient with a past medical history listed above, who presents to the [facility] for further recommendations. BMI 38 - continue to strive for 3 meals per day. Protein rich low simple carbs - would encourage journaling Will try increased phentermine 30 mg a day. (E05.90) Hyperthyroidism (primary encounter diagnosis) Plan: Follows with Endocrinology. On Tapazole. Medication Orders Placed This Encounter Medications • Phentermine HCl 30 MG Oral Capsule (Fastin) (R40.0) Daytime sleepiness Plan: SLEEP MEDICINE REFERRAL OP == Thyroid levels have been in normal range Started phentermine. Unsure if she has lost any weight Was having sweating. Stopped Wellbutrin about a month ago and this has improved. Will try increased dose of phentermine Had COVID, not as active Will have her blood pressure weight and pulse checked and sent me Will check back in 2 months Feli Ceballos PA-C documented in this encounter Plan of Treatment Health Maintenance Due Date Last Done Comments COVID-19 Vaccine (1) 1990 Pneumococcal Vaccine: Pediatrics (0 to 5 Years) and At-Risk Patients (6 to 64 Years) (1 of 2 - PPSV23) 1991 DTaP,Tdap,and Td Vaccines (6 - Tdap) 07/05/1997 07/04/1997, 01/24/1991, 04/03/1987, Additional history exists PAP SMEAR-EVERY 3 YRS,AGES 21-65 2006 Influenza Vaccine (FLU shot) (#1) 2021 09/23/2020, 08/08/2013 Depression Screening, Annual for Pts 12 and Over 09/23/2021 09/23/2020 GARDASIL-HPV IMMUNIZATION SERIES Aged Out No longer eligible based on patient's age to complete this topic MENINGOCOCCAL (MENACTRA/MENVEO) Aged Out No longer eligible based on patient's age to complete this topic documented as of this encounter Implants Not on filedocumented as of this encounter Visit Diagnoses Diagnosis Obesity, Class I, BMI 30.0-34.9 (see actual BMI)- Primary Obesity, unspecified documented in this encounter Advance Directives Documents on File Type Date Recorded Patient Welcome Center Attendant Expl anation Advanced Directive Advanced Directive Advanced [...] Directive Advanced Directive Advanced Directive Care Teams Kitchen Chef Relationship Specialty Start Date End Date Jethro Stevens DO [address] [address] PCP - General Family Medicine 02/18/21 documented as of this encounter
--- OUTSIDE RECORDS SUMMARY | 2023-08-25 07:39 | External Medical Summary ---
Author Name Unknown Address Unknown Organization K01:[facility] - [address] [place] [address] Laboratory Report Ordering Provider Test Date Status MAGALY ESCAMILLA 04/06/2022 07:55:03 Final Observation Date Value Abnormality Reference (Units ) Status TSH 04/06/2022 07:55:03 1.19 0.27-4.20 (uIU/mL) Final Performing Location [facility] - [address] [place] [address]
--- OUTSIDE RECORDS SUMMARY | 2023-08-25 07:39 | External Medical Summary | Summary of Care ---
Author Name Unknown Organization [place] [address] Care Team Providers Care Metal Trimmer Name Role Phone Rodney Jethro Floresrip Primary Care Provider Reason for Visit * Reason Onset Date Comments Test Results 04/23/2022 Encounter Details Date Type Department Care Team Description 04/23/2022 Telephone Nutrition & Weight Management, [place] [address] [place] [address] Kelli Flores MD [address] [place] [address] Test Results Allergies Active Allergy Reactions Severity Noted Date Comments Pollen 05/29/2013 Peanut Oil 05/29/2013 documented as of this encounter (statuses as of 04/23/2022) Medications Medication Sig Dispensed Refills Start Date [...] the morning. 30 Capsule 0 04/07/2022 Active documented as of this encounter (statuses as of 04/23/2022) Active Problems Problem Noted Date Family history of [place] (myocardial infarct ion) 02/18/2021 Hyperthyroidism 02/18/2021 Anxiety 02/18/2021 Graves disease 02/18/2021 Other allergic rhinitis 07/30/2001 Overview: ICD-10 update of inactive term Asthma with severity to be determined Overview: ICD-10 update of inactive term ATTN DEFIC NONHYPERACT 01/24/2000 EXT ASTHMA W-O STAT ASTH Dysmenorrhea documented as of this encounter (statuses as of 04/23/2022) Resolved Problems Problem Noted Date Resolved Date [...] as of this encounter (statuses as of 04/23/2022) Immunizations Name Administration Dates Next Due DT [...] CRNP [address] [facility] [id number] 06/09/2022 Office Visit Family Medicine Jethro Stevens DO [address] [facility] [place] [address] Health Maintenance Due Date Last Done Comments [...] Documents on File Type Date Recorded Patient 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
--- OUTSIDE RECORDS SUMMARY | 2023-08-25 07:39 | External Medical Summary ---
Author Name Unknown Address Unknown Organization K01:[facility] - [address] [place] [address] Laboratory Report Ordering Provider Test Date Status MAGALY ESCAMILLA 04/06/2022 07:55:03 Final Observation Date Value Abnormality Reference (Units ) Status T3, Free 04/06/2022 07:55:03 3.2 2.5-4.3 (p g/mL) Final Performing Location [facility] - [address] [place] [address]
--- OUTSIDE RECORDS SUMMARY | 2023-08-25 07:39 | External Medical Summary | Summary of Care ---
Author Name Unknown Organization [place] [address] Care Team Providers Care Mexican Food Cook Name Role Phone Jethro Stevens DO Primary Care Provider Reason for Visit * Reason Onset Date Comments Follow Up 02/17/2022 Encounter Details Date Type Department Care Team Description 02/17/2022 Telephone Family Practice [facility] [address] [facility] [place] [address] Ivania Da Silva CRNP [address] [facility] [place] [address] Follow Up Allergies Active Allergy Reactions Severity Noted Date Comments Pollen 05/29/2013 Peanut Oil 05/29/2013 documented as of this encounter (statuses as of 02/17/2022) Medications Medication Sig Dispensed Refills Start Date [...] as of this encounter (statuses as of 02/17/2022) Active Problems Problem Noted Date Family history of [place] (myocardial infarct ion) 02/18/2021 Hyperthyroidism 02/18/2021 Anxiety 02/18/2021 Graves disease 02/18/2021 Other allergic rhinitis 07/30/2001 Overview: ICD-10 update of inactive term Asthma with severity to be determined Overview: ICD-10 update of inactive term ATTN DEFIC NONHYPERACT 01/24/2000 EXT ASTHMA W-O STAT ASTH Dysmenorrhea documented as of this encounter (statuses as of 02/17/2022) Resolved Problems Problem Noted Date Resolved Date [...] as of this encounter (statuses as of 02/17/2022) Immunizations Name Administration Dates Next Due DT [...] Miscellaneous Notes * Telephone Encounter - KIRSTEN Escudero - 02/17/2022 9:12 AM EDT See myG documented in this encounter Plan of Treatment Upcoming Encounters Date Type Specialty Care Team Description 03/31/2022 Office Visit Family Medicine Ivania Da Silva CRNP [address] [address] 06/09/2022 Office Visit Family Medicine Jethro Stevens DO [address] [address] Health Maintenance Due Date Last Done Comments [...] Documents on File Type Date Recorded Patient Claim Investigator Expl anation Advanced Directive Advanced Directive Advanced [...] Directive Advanced Directive Advanced Directive Care Teams Mexican Food Cook Relationship Specialty Start Date End Date Jethro Stevens DO [address] [facility] [place] [address] PCP - General Family Medicine 02/18/21 documented as of this encounter
--- OUTSIDE RECORDS SUMMARY | 2023-08-25 07:39 | External Medical Summary ---
Author Name Unknown Address Unknown Organization K01:[facility] - [address] [place] [address] Laboratory Report Ordering Provider Test Date Status MAGALY ESCAMILLA 12/29/2021 15:18:10 Final Observation Date Value Abnormality Reference (Units ) Status T3, Free 12/29/2021 15:18:10 3.5 2.5-4.3 (p g/mL) Final Performing Location [facility] - [address] [place] [address]
--- OUTSIDE RECORDS SUMMARY | 2023-08-25 07:39 | External Medical Summary | Summary of Care ---
Author Name Unknown Organization [place] [address] Care Team Providers Care Claim Trainee Name Role Phone Jethro Stevens DO Primary Care Provider Reason for Referral * Evaluate & Treat - Unlimited Visits (Within 10 days (routine)) - Pending Review Specialty Diagnoses / Procedures Referred By Contact Referred To Contact GI NUTRITION/IM / Gastroenterology Diagnoses Obesity, Class II, BMI 35-39.9, isolated (see actual BMI) Ivania Da Silva CRNP [address] [address] Referral ID Status Reason Start Date Expiration Date Visits Requested Visits Authorized [id number] Pending Review Specialty Services Required 03/31/2022 1 1 Question Answer Referral Priority Within 10 days (routine) For what condition is the patient being seen? Weight Loss Medication Reason for Visit * Reason Comments Follow Up Pt states she feels great-- only concern is her weight. Encounter Details Date Type Department Care Team Description 03/31/2022 Telemedicine Family Practice [facility] [address] [address] Ivania Da Silva CRNP [address] [address] Obesity, Class II, BMI 35-39.9, isolated (see actual BMI)*; Anxiety; Hyperthyroidism Allergies Active Allergy Reactions Severity Noted Date Comments Pollen 05/29/2013 Peanut Oil 05/29/2013 documented as of this encounter (statuses as of 03/31/2022) Medications Medication Sig Dispensed Refills Start Date [...] as of this encounter (statuses as of 03/31/2022) Active Problems Problem Noted Date Family history of [place] (myocardial infarct ion) 02/18/2021 Hyperthyroidism 02/18/2021 Anxiety 02/18/2021 Graves disease 02/18/2021 Other allergic rhinitis 07/30/2001 Overview: ICD-10 update of inactive term Asthma with severity to be determined Overview: ICD-10 update of inactive term ATTN DEFIC NONHYPERACT 01/24/2000 EXT ASTHMA W-O STAT ASTH Dysmenorrhea documented as of this encounter (statuses as of 03/31/2022) Resolved Problems Problem Noted Date Resolved Date [...] as of this encounter (statuses as of 03/31/2022) Immunizations Name Administration Dates Next Due DT [...] of this encounter Progress Notes * KIRSTEN Escudero - 03/31/2022 3:52 PM EDT Images from the original note were not included. History of Present Illness Starr Dove is a 36 year old female that presents for Follow Up (Pt states she feels great-- only concern is her weight. ) HPI Here for follow up Prozac much better for her -- sleeping better, more motivated. Would like to continue at current dose. 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 Physical Exam Constitutional: General: She is not in acute distress. Pulmonary: Effort: Pulmonary effort is normal. Neurological: Mental Status: She is alert and oriented to person, place, and time. Psychiatric: Behavior: Behavior normal. Assessment and Plan Obesity, Class II, BMI 35-39.9, isolated (see actual BMI) - GI NUTRITION REFERRAL OP Anxiety - Continue prozac at current dose, follow up as scheduled with PCP in 2 months Hyperthyroidism - due for follow up with endocrine Wrap-Up Follow-up: Return if symptoms worsen or fail to improve. | Check-out note: Keep visit with PCP in May Schedule with weight management Schedule endocrinology follow up visit Time: I spent a total of 20-29 minutes (exact time 20 mins) on the date of service in preparation, delivery, and documentation of the care provided to Starr Dove excluding any time spent in the performance of separately billed services. Telemedicine: Patient location: HOME. I was in a hospital or clinic location. After connecting through televideo,patient was verified with two unique identifiers. Patient (or authorized legal sales support representative) was then informed that this was a Telemedicine visit and being conducted confidentially over secure lines. Methods to assure confidentiality were taken. Patient acknowledged consent and understanding of pr ivacy and security of the Telemedicine visit. The patient agreed to participate. documented in this encounter Nursing Notes * Felicia Marcus LPN - 03/31/2022 3:47 PM EDT Chief Complaint Patient presents with • Follow Up Pt states she feels great-- only concern is her weight. documented in this encounter Plan of Treatment Upcoming Encounters Date Type Specialty Care Team Description 06/09/2022 Office Visit Family Medicine Jethro Stevens, [address] [facility] [place] [address] Scheduled Referrals Name Type Priority Associated Diagnoses Orde r Schedule GI NUTRITION REFERRAL OP Referral Within 10 days (routine) Obesity, Class II, BMI 35-39.9, isolated (see actual BMI) Ordered: 03/31/2022 Health Maintenance Due Date Last Done Comments [...] this encounter Visit Diagnoses Diagnosis Obesity, Class II, BMI 35-39.9, isolated (see actual BMI)- Primary Morbid obesity Anxiety Anxiety state, unspecified Hyperthyroidism Thyrotoxicosis without mention of goiter or other cause, without mention of thyrotoxic crisis or storm documented in this encounter Advance Directives Documents on File Type Date Recorded Patient Bariatric Nurse Expl anation Advanced Directive Advanced Directive Advanced [...] Directive Advanced Directive Advanced Directive Care Teams Claim Trainee Relationship Specialty Start Date End Date Jethro Stevens DO [address] [facility] [place] [address] PCP - General Family Medicine 02/18/21 documented as of this encounter"
--- OUTSIDE RECORDS SUMMARY | 2023-08-25 07:39 | External Medical Summary | Summary of Care ---
Author Name Unknown Organization [place] [address] Care Team Providers Care It Infrastructure Architect Name Role Phone Jethro Stevens DO Primary Care Provider Reason for Visit * Reason Comments Outpatient Testing Encounter Details Date Type Department Care Team Description 04/06/2022 Laboratory Laboratory, [facility] [id number] [facility] 132 [facility] [place] [address] Graves disease Allergies Active Allergy Reactions Severity Noted Date Comments Pollen 05/29/2013 Peanut Oil 05/29/2013 documented as of this encounter (statuses as of 04/06/2022) Medications Medication Sig Dispensed Refills Start Date [...] as of this encounter (statuses as of 04/06/2022) Active Problems Problem Noted Date Family history of OK (myocardial infarct ion) 02/18/2021 Hyperthyroidism 02/18/2021 Anxiety 02/18/2021 Graves disease 02/18/2021 Other allergic rhinitis 07/30/2001 Overview: ICD-10 update of inactive term Asthma with severity to be determined Overview: ICD-10 update of inactive term ATTN DEFIC NONHYPERACT 01/24/2000 EXT ASTHMA W-O STAT ASTH Dysmenorrhea documented as of this encounter (statuses as of 04/06/2022) Resolved Problems Problem Noted Date Resolved Date [...] as of this encounter (statuses as of 04/06/2022) Immunizations Name Administration Dates Next Due DT [...] Telemedicine Gastroenterology Kelli Flores MD [address] [place] [address] 05/09/2022 Telemedicine Endocrinology Francis Clark CRNP [address] [place] [address] 06/09/2022 Office Visit Family Medicine Jethro Stevens, 132 [facility] [place] [address] Pending Results Name Type Priority Associated Diagnoses Date /Time TSH Lab Routine Graves disease 04/06/2022 7:55 AM EDT T4, FREE Lab Routine Graves disease 04/06/2022 7:55 AM EDT T3, FREE Lab Routine Graves disease 04/06/2022 7:55 AM EDT Health Maintenance Due Date Last [...] Documents on File Type Date Recorded 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
--- OUTSIDE RECORDS SUMMARY | 2023-08-25 07:39 | External Medical Summary ---
Author Name Unknown Address Unknown Organization K01:[facility] - [address] [place] [address] Laboratory Report Ordering Provider Test Date Status EFRAÍN MORA 04/08/2022 07:10:43 Final Observation Date Value Abnormality Reference (Units ) Status Insulin level 04/08/2022 07:10:43 20 3-25 ( uU/mL) Final Performing Location [facility] - [address] [place] [address]
--- OUTSIDE RECORDS SUMMARY | 2023-08-25 07:39 | External Medical Summary | Summary of Care ---
Author Name Unknown Organization [place] [address] Care Team Providers Care Service Manager Name Role Phone Jethro Stevens DO Primary Care Provider Reason for Visit * Reason Comments Outpatient Testing Encounter Details Date Type Department Care Team Description 04/08/2022 Laboratory Laboratory, [facility] [address] [facility] 132 [place] [address] Abnormal weight gain Allergies Active Allergy Reactions Severity Noted Date Comments Pollen 05/29/2013 Peanut Oil 05/29/2013 documented as of this encounter (statuses as of 04/08/2022) Medications Medication Sig Dispensed Refills Start Date [...] as of this encounter (statuses as of 04/08/2022) Active Problems Problem Noted Date Family history of OK (myocardial infarct ion) 02/18/2021 Hyperthyroidism 02/18/2021 Anxiety 02/18/2021 Graves disease 02/18/2021 Other allergic rhinitis 07/30/2001 Overview: ICD-10 update of inactive term Asthma with severity to be determined Overview: ICD-10 update of inactive term ATTN DEFIC NONHYPERACT 01/24/2000 EXT ASTHMA W-O STAT ASTH Dysmenorrhea documented as of this encounter (statuses as of 04/08/2022) Resolved Problems Problem Noted Date Resolved Date [...] as of this encounter (statuses as of 04/08/2022) Immunizations Name Administration Dates Next Due DT [...] Telemedicine Endocrinology [facility] Clark [facility] [address] [facility] [address] 06/09/2022 Office Visit Family Medicine Jethro Stevens DO 132 [facility] [place] [address] Pending Results Name Type Priority Associated Diagnoses Date /Time HEMOGLOBIN A1C Lab Routine Abnormal weight gain 04/08/2022 7:10 AM EDT INSULIN Lab Routine Abnormal weight gain 04/08/2022 7:10 AM EDT Health Maintenance Due Date Last [...] as of this encounter Visit Diagnoses Diagnosis Abnormal weight gain documented in this encounter Advance Directives Documents on File Type Date 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
--- OUTSIDE RECORDS SUMMARY | 2023-08-25 07:39 | External Medical Summary ---
Author Name Unknown Address Unknown Organization K01:[facility] - [address] [place] [address] Laboratory Report Ordering Provider Test Date Status EFRAÍN MORA 04/08/2022 07:10:43 Final Observation Date Value Abnormality Reference (Units ) Status HbA1C 04/08/2022 07:10:43 5.6 4.0-5.6 (% ) Final Performing Location [facility] - [address] [place] [address]
--- OUTSIDE RECORDS SUMMARY | 2023-08-25 07:39 | External Medical Summary | Summary of Care ---
Author Name Unknown Organization [place] [address] Care Team Providers Care Roofing Supervisor Name Role Phone Rodney Jethro Floresrip Primary Care Provider Reason for Visit * Reason Comments Re-Check FMLA paperwork, rech jin Encounter Details Date Type Department Care Team Description 02/17/2022 Office Visit Family [facility] 132 [facility] [place] [address] Ivania Da Silva CRNP 132 [facility] [place] [address] Anxiety*; Graves disease; Hyperthyroidism Allergies Active Allergy Reactions [...] 11/12/2013 Active methIMAzole 5 MG Oral Tablet (Tapazole)Indica tions:Graves disease Take 1 Tablet by mouth daily. 30 Tablet 5 09/27/2021 Active hydrOXYzine HCl 50 MG Oral TabletIndication [...] before bedtime. 60 Tablet 5 02/17/2022 Active Ozempic (0.25 or 0.5 MG/DOSE) 2 MG/1.5ML Solution Pen-injector (Semaglutide(0.2 5 or 0.5MG/DOS)) Inject 0.25 mg under the skin once a week. 1.5 mL 1 08/03/2021 2 Discontinued buPROPion HCl ER (XL) 150 MG Oral Tablet Extended Release 24 Hour (Wellbutrin XL)Indications:O besity, Class II, BMI 35-39.9, isolated (see actual BMI) Take 1 in am. and 1 around 3:00 p.m. 180 Tab 5 08/06/2021 2 Discontinued Naltrexone HCl 50 MG Oral Tablet (Revia)Indicatio ns:Obesity, Class II, BMI 35-39.9, isolated (see actual BMI) Take 0.5 Tabs by mouth 2 times a day. 90 Tab 0 08/06/2021 2 Discontinued Propranolol HCl 20 MG Oral Tablet (Inderal)Indicat ions:Graves disease,Hyperthy roidism Take 1 Tab by mouth 2 times a day. 60 Tab 5 09/08/2021 2 Discontinued Benzonatate 100 MG Oral Capsule (Tessalon Perles) Take 1 Capsule by mouth 3 times a day as needed for Cough. 30 Capsule 1 11/26/2021 2 Discontinued Phentermine HCl 30 MG Oral Capsule (Fastin) Take by mouth 1 Capsule in the morning. 30 Capsule 0 12/30/2021 2 Discontinued FLUoxetine HCl 10 MG Oral Capsule (PROzac)Indicati ons:Anxiety Take by mouth 1 Capsule in the morning. 30 Capsule 11 02/03/2022 2 Discontinued documented as of this encounter [...] vaccine. 08/08/2013 Charlee Souza RN GBS Negative KIRSTNE Rios, MARGARITA 09/30/2013 ICD-10 update of inactive [...] Sign Reading Time Taken Comments Blood Pressure 118/62 02/17/2022 8:35 AM EDT Pulse 50 02/17/2022 8:35 AM EDT Temperature 36.9 °C (98.4 °F) 02/17/2022 8:35 AM ED T Respiratory Rate - - Oxygen Saturation 98% 02/17/2022 8:35 AM EDT Inhaled Oxygen Concentration - - Weight 94.4 kg (208 lb 1.6 oz) 02/17/2022 8:35 A M EDT Height - - Body Mass Index 38.06 04/20/2021 10:33 AM EDT documented in this encounter Progress Notes * KIRSTEN Escudero - 02/17/2022 8:36 AM EDT Images from the original note were not included. 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 Denies dizziness, SOB, chest pain, lower extremity edema. Taking 20mg of propranolol BID. Physical Exam Vitals: 02/17/22 0835 Temp: 36.9 °C (98.4 °F) Pulse: 50 SpO2: 98% BP: 118/62 Physical Exam Vitals reviewed. Constitutional: Appearance: Normal appearance. HENT: Head: Normocephalic and atraumatic. Right Ear: Tympanic membrane, ear canal and external ear normal. Left Ear: Tympanic membrane, ear canal and external ear normal. Nose: Nose normal. Mouth/Throat: Mouth: Mucous membranes are moist. Eyes: Extraocular Movements: Extraocular movements intact. Conjunctiva/sclera: Conjunctivae normal. Pupils: Pupils are equal, round, and reactive to light. Neck: Thyroid: No thyroid tenderness. Cardiovascular: Rate and Rhythm: Normal rate and regular rhythm. Pulses: Normal pulses. Heart sounds: Normal heart sounds. Pulmonary: Effort: Pulmonary effort is normal. Breath sounds: Normal breath sounds. Abdominal: General: Bowel sounds are normal. Palpations: Abdomen is soft. Musculoskeletal: General: Normal range of motion. Cervical back: Normal range of motion and neck supple. Skin: General: Skin is warm and dry. Capillary Refill: Capillary refill takes less than 2 seconds. Neurological: General: No focal deficit present. Mental Status: She is alert and oriented to person, place, and time. Psychiatric: Mood and Affect: Mood normal. Behavior: Behavior normal. Thought Content: Thought content normal. Judgment: Judgment normal. I have reviewed the following results: TSH Assessment and Plan Anxiety - Doing better. Will titrate up on prozac and have f/u visit in 6 weeks. [facility] paperwork completed, signed by PCP and given to patient. - FLUoxetine HCl 20 MG Oral Capsule (PROzac); Take by mouth 1 Capsule in the morning. Graves disease - has recheck labs ordered by endocrine due in 2-4 weeks. Will decrease propranolol to 10mg BID, may also help with stagnated weight. Discussed indications for sooner f/u, and ER if develops chest pain, SOB. Hyperthyroidism - as above Wrap-Up Follow-up: Return in about 6 weeks (around 03/31/2022). | Check-out note: Recheck mood 6 weeks Also schedule routine follow up with Dr Stevens Time: I spent a total of 20-29 minutes (exact time 25 mins) on the date of service in preparation, delivery, and documentation of the care provided to Starr Hernándezr excluding any time spent in the performance of separately billed services. documented in this encounter Nursing Notes * Felicia Marcus LPN - 02/17/2022 8:26 AM EDT Patient has been verbally educated on the need or importance of Cervical Cancer Screening and Immunizations: flu, pnumonia Med recheck, weight loss issues was on phentamine. Mood is not there, miserable, depression, been arough couple years, lost parents. documented in this encounter Plan of Treatment Upcoming Encounters Date Type Specialty Care Team Description 03/31/2022 Office Visit Family Medicine Ivania Da Silva CRNP [address] [place] [address] 06/09/2022 Office Visit Family Medicine Jethro Stevens DO [address] [place] [address] Health Maintenance Due Date Last Done Comments [...] Diagnoses Diagnosis Anxiety- Primary Anxiety state, unspecified Graves disease Toxic diffuse goiter without mention of thyrotoxic crisis or storm Hyperthyroidism Thyrotoxicosis without mention of goiter or other cause, without mention of thyrotoxic crisis or storm documented in this encounter Advance Directives Documents on File Type Date 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
--- OUTSIDE RECORDS SUMMARY | 2023-08-25 07:39 | External Medical Summary ---
Author Name Unknown Address Unknown Organization [facility] - [address] [place] [address] Laboratory Report Ordering Provider Test Date Status MAGALY ESCAMILLA 12/29/2021 15:18:10 Final Observation Date Value Abnormality Reference (Units ) Status T4, Free 12/29/2021 15:18:10 1.1 0.9-1.7 (n g/dL) Final Performing Location [facility] - [address] [place] [address]
--- OUTSIDE RECORDS SUMMARY | 2023-08-25 07:39 | External Medical Summary ---
Author Name Unknown Address Unknown Organization [facility] - [address] [place] [address] Laboratory Report Ordering Provider Test Date Status MAGALY ESCAMILLA 04/06/2022 07:55:03 Final Observation Date Value Abnormality Reference (Units ) Status T4, Free 04/06/2022 07:55:03 1.0 0.9-1.7 (n g/dL) Final Performing Location [facility] - [address] [place] [address]
--- OUTSIDE RECORDS SUMMARY | 2023-08-25 07:39 | External Medical Summary | Summary of Care ---
Author Name Unknown Organization [place] [address] Care Team Providers Care Stained Glass Joiner Name Role Phone Jethro Stevens DO Primary Care Provider Reason for Visit * Reason Comments Weight Management * Evaluate & Treat - Unlimited Visits (Within 10 days (routine)) - Pending Review Specialty Diagnoses / Procedures Referred By Contact Referred To Contact GI NUTRITION/IM / Gastroenterology Diagnoses Obesity, Class II, BMI 35-39.9, isolated (see actual BMI) Ivania Da Silva CRNP [address] [place] [address] Referral ID Status Reason Start Date Expiration Date Visits Requested Visits Authorized [id number] Pending Review Specialty Services Required 03/31/2022 1 1 Encounter Details Date Type Department Care Team Description 04/07/2022 [facility] [address] [place] [address] Kelli Flores MD [address] [place] [address] Abnormal weight gain*; Hyperthyroidism; Obesity (BMI 35.0-39.9 without comorbidity); High risk medication use; Disordered sleep Allergies Active Allergy Reactions Severity Noted Date Comments Pollen 05/29/2013 Peanut Oil 05/29/2013 documented as of this encounter (statuses as of 04/07/2022) Medications Medication Sig Dispensed Refills Start Date [...] as of this encounter (statuses as of 04/07/2022) Active Problems Problem Noted Date Family history of NV (myocardial infarct ion) 02/18/2021 Hyperthyroidism 02/18/2021 Anxiety 02/18/2021 Graves disease 02/18/2021 Other allergic rhinitis 07/30/2001 Overview: ICD-10 update of inactive term Asthma with severity to be determined Overview: ICD-10 update of inactive term ATTN DEFIC NONHYPERACT 01/24/2000 EXT ASTHMA W-O STAT ASTH Dysmenorrhea documented as of this encounter (statuses as of 04/07/2022) Resolved Problems Problem Noted Date Resolved Date [...] as of this encounter (statuses as of 04/07/2022) Immunizations Name Administration Dates Next Due DT [...] - - Weight 94.8 kg (209 lb) 04/07/2022 10:59 AM EDT pt reported Height - - Body Mass Index 38.23 04/20/2021 10:33 AM EDT documented in this encounter Progress Notes * Kelli Flores MD - 04/07/2022 10:50 AM EDT Patient location: HOME. I was not in a hospital or clinic location. After connecting through eLearning [employer], patient was verified with two unique identifiers. 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 Methods to assure confidentiality were taken. Patient acknowledged consent and understanding of privacy and security of the Telemedicine visit. The patient agreed to participate. [facility] NOTE Referring Physician: DO Starr Montemayor Edgarr is a 36 year old patient with [...] weight at that time was 210 lb Wt Readings from Last 10 Encounters: 04/07/22 94.8 kg (209 lb) 02/17/22 94.4 kg (208 lb 1.6 oz) 08/03/21 95.3 kg (210 lb) 04/20/21 95.6 kg (210 lb 12.8 oz) 02/18/21 94.4 kg (208 lb 3 oz) 12/25/20 93 kg (205 lb 2 oz) 09/29/20 91.2 kg (201 lb) 09/23/20 93.2 kg (205 lb 6 oz) 11/12/13 83.9 kg (185 lb) 10/21/13 81.2 kg (179 lb) Pt reported weight today is 209 lbs YOLIE 12/30/21 @ 210 lbs Wt change since then -->> -1 lbs Wt change from initial visit -->> -1 lbs HPI: Ozempic denied. Used wellbutrin + naltrexone for a while, but ineffective Started on phentermine by [facility] in 09/2021, but stopped in Dec 2021 due to sweating and insomnia (also pt not losing weight). Weight about the same. Not losing or gaining. Eating more chicken, veg, fruit Since stopping Lexapro, no more sweating or insomnia. Current Diet: Describes typical diet history/24 hr recall Breakfast: CIB Snacks: - Lunch: leftovers. Today is pasta salad Snacks: Only on weekends Dinner: lots of grilling (pork chops or chicken), grilled veg, starch Snacks: no Drinks: diet tea, water, 2 cups coffee with creamer Restaurant meals: twice a week Thinks portions are controlled. Doesn't feel like she eats "that much" No food journal Occ stress eating. 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 30 Tablet 5 • hydrOXYzine HCl 50 MG Oral Tablet TAKE ONE TABLET BY MOUTH EVERY 6 HOURS NEEDED FOR ANXIETY (Patient not taking: Reported on 02/17/2022) 40 Tablet 3 • Albuterol Sulfate HFA 108 (90 Base) MCG/ACT Inhalation Aerosol Solution Inhale 2 Puffs by mouthevery 4 hours as needed for Cough, Shortness of Breath or Wheezing. 18 g 3 • FLUoxetine HCl 20 MG Oral Capsule (PROzac) Take by mouth 1 Capsule in the morning. 30 Capsule 11 • Propranolol HCl 10 MG Oral Tablet (Inderal) Take by mouth 1 Tablet in the morning AND 1 Tablet before bedtime. 60 Tablet 5 No current facility-administered medications for this visit. Review of Systems: Constitutional: (-) fever chills sweats or weight loss Eyes: Glaucoma No Cardiovascular: No chest pain, No shortness of breath, No dyspnea on exertion, No orthopnea, No edema and No syncope Hypertension: No BP Readings from Last 3 Encounters: 02/17/22 118/62 06/01/21 102/68 02/18/21 108/72 CAD: No Pulmonary Asthma: Yes COPD: No There are no exam notes on file for this visit. Sleep Apnea: possibly Endocrine: Yes - Graves Patient denies personal or family history of medullary thyroid carcinoma. Patient denies personal or family history of multiple endocrine neoplasia syndrome. Insulin Resistance: Yes Diabetes: No - Hemoglobin AIC Results: No components found for: [id number] Dyslipidemia: No Lipid Panel Results: GI: No [...] Mental Health Diagnosis: anxiety/panic disorder Physical Examination: Wt 94.8 kg (209 lb) Comment: pt reported | BMI 38.23 kg/m² | BSA 2.04 m² NAD NC/AT Normal WOB/ no audible wheeze Mood and speech normal Assessment and Recommendation: Ms. Dove is a 36 year old patient with a past medical history listed above, who presents to the [facility] for further recommendations. Abnormal weight gain/class II obesity/Body mass index is 38.23 kg/m². - food journal. - wants to try phentermine again. I am agreeable to this. Start phentermine 15 mg qd. Monitor HR and BP closely. Low threshold to stop medication. Pt aware to avoid while on medication. - check fasting insulin and a1c PHENTERMINE: Since the patient would like to try phentermine, and is aware of the potential side effects (hypertension, palpitations, tachycardia, and anxiety), I will give Starr Dove a prescription today to be used in conjunction with the above diet and exercise program. The patient will checkher heart rate and blood pressure on a regular basis. She will call me if her BP goes over 140/90 or if she has palpitations or racing heart rate. She understands that I will not call in the prescription for her; she has to have an appointment to have the medication refilled. (E05.90) Hyperthyroidism (primary encounter diagnosis) Plan: Follows with Endocrinology. On Tapazole. (R40.0) Daytime sleepiness Plan: SLEEP MEDICINE REFERRAL OP -- reminded pt to make appointment. RTC 1 month Kelli Flores MD I spent a total of 20-29 minutes (exact time 29 mins) on the date of service in preparation, delivery, and documentation of the care provided to Starr Dove excluding any time spent in the performance of separately billed services. documented in this encounter Plan of Treatment Upcoming Encounters Date Type Specialty Care Team Description 05/09/2022 Telemedicine Endocrinology Francis Clark CRNP [address] [place] [address] 06/09/2022 Office Visit Family Medicine Jethro Stevens, [address] [place] [address] Scheduled Orders Name Type Priority Associated Diagnoses Orde r Schedule HEMOGLOBIN A1C Lab Routine Abnormal weight gain 1 Occurrences starting 04/07/2022 until 03/30/2023 INSULIN Lab Routine Abnormal weight gain 1 Occurrences starting 04/07/2022 until 03/30/2023 Health Maintenance Due Date Last Done Comments [...] this encounter Visit Diagnoses Diagnosis Abnormal weight gain- Primary Hyperthyroidism Thyrotoxicosis without mention of goiter or other cause, without mention of thyrotoxic crisis or storm Obesity (BMI 35.0-39.9 without comorbidity) Morbid obesity High risk medication use Encounter for long-term (current) use of other medications Disordered sleep Sleep disturbance, unspecified documented in this encounter Advance Directives Documents on File Type Date Recorded 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
--- OUTSIDE RECORDS SUMMARY | 2023-08-25 07:39 | External Medical Summary ---
Author Name Unknown Address Unknown Organization K01:[facility] - [address] [facility] [address] [place] [address] Laboratory Report Ordering Provider Test Date Status MAGALY ESCAMILLA 12/29/2021 15:18:10 Final Observation Date Value Abnormality Reference (Units ) Status TSH 12/29/2021 15:18:10 1.43 0.27-4.20 (uIU/mL) Final Performing Location [facility] - [address] [place] [address]
--- OUTSIDE RECORDS SUMMARY | 2023-08-25 07:40 | External Medical Summary | Summary of Care ---
Author Name Unknown Organization [place] [address] Care Team Providers Care Auto Garage Attendant Name Role Phone Jethro Stevens DO Primary Care Provider Reason for Visit * Reason Comments eRx-Medication Refill Encounter Details Date Type Department Care Team Description 10/29/2021 Refill Family Practice [facility] [address] [place] [address] Jethro Stevens DO [address] [place] [address] Anxiety Allergies Active Allergy Reactions Severity Noted Date Comments Pollen 05/29/2013 Peanut Oil 05/29/2013 documented as of this encounter (statuses as of 10/29/2021) Medications Medication Sig Dispensed Refills Start Date End Date Status ALBUTEROL SULFATE HFA 108 (90 BASE) MCG/ACT IN AERS as needed 0 Active IBUPROFEN 600 MG PO TABS [...] mouth daily. 30 Tablet 5 09/27/2021 Active Phentermine HCl 15 MG Oral Capsule Take 1 Capsule by mouth daily. 30 Capsule 0 09/30/2021 Active hydrOXYzine HCl 50 MG Oral TabletIndications :Anxiety TAKE ONE TABLET BY MOUTH EVERY 6 HOURS NEEDED FOR ANXIETY 40 Tablet 3 10/29/2021 Active hydrOXYzine HCl 50 MG Oral TabletIndications :Anxiety TAKE ONE TABLET BY MOUTH EVERY 6 HOURS NEEDED FOR ANXIETY 40 Tab 3 05/20/2021 10/29/2021 Discontinued documented as of this encounter (statuses as of 10/29/2021) Active Problems Problem Noted Date Family history of [place] (myocardial infarct ion) 02/18/2021 Hyperthyroidism 02/18/2021 Anxiety 02/18/2021 Graves disease 02/18/2021 Other allergic rhinitis 07/30/2001 Overview: ICD-10 update of inactive term Asthma with severity to be determined Overview: ICD-10 update of inactive term ATTN DEFIC NONHYPERACT 01/24/2000 EXT ASTHMA W-O STAT ASTH Dysmenorrhea documented as of this encounter (statuses as of 10/29/2021) Resolved Problems Problem Noted Date Resolved Date [...] as of this encounter (statuses as of 10/29/2021) Immunizations Name Administration Dates Next Due DT [...] Telephone Encounter - Erich Quevedo MD - 10/29/2021 5:11 PM EST Signed Prescriptions: Disp Refills hydrOXYzine HCl 50 MG Oral Tablet 40 Tab*3 Sig: TAKE ONE TABLET BY MOUTH EVERY 6 HOURS NEEDED FOR ANXIETY Authorizing Provider: ERICH QUEVEDO * Telephone Encounter - Bonita Alicea [facility] - 10/29/2021 12:51 PM EST Pending Prescriptions: Disp Refills hydrOXYzine HCl 50 MG Oral Tablet [Pharma*40 Tab*3 Sig: TAKE ONE TABLET BY MOUTH EVERY 6 HOURS NEEDED FOR ANXIETY * Telephone Encounter - Bonita Alicea RPh - 10/29/2021 12:50 PM EST Telepharmacy is currently not authorized to approve refills for hydroxyzine with anxiety/ insomnia diagnosis per refill protocol. Please approve if appropriate. Thanks, Bonita Alicea, PharmD Clinical Pharmacist Telepharmacy 10/29/2021, 12:51 PM documented in this encounter Plan of Treatment Upcoming Encounters Date Type Specialty Care Team Description 12/30/2021 Telemedicine Gastroenterology Feli Ceballos PA-C [address] [facility] [id number] Health Maintenance Due Date Last Done Comments COVID-19 Vaccine (1) 1990 Pneumococcal Vaccine: Pediatrics (0 to 5 Years) and At-Risk Patients (6 to 64 Years) (1 of 2 - PPSV23) 1991 DTaP,Tdap,and Td Vaccines (6 - Tdap) 07/05/1997 07/04/1997, 01/24/1991, 04/03/1987, Additional history exists PAP SMEAR-EVERY 3 YRS,AGES 21-65 2006 Influenza Vaccine (FLU shot) (#1) 2021 09/23/2020, 08/08/2013 *DEPRESSION SCREENING,ANNUAL FOR PTS 12 AND OVER 09/28/2021 MENINGOCOCCAL (MENACTRA/MENVEO) Aged Out No longer eligible based on patient's age to complete this topic documented as of this encounter Implants Not on filedocumented as of this encounter Visit Diagnoses Diagnosis Anxiety Anxiety state, unspecified documented in this encounter Advance Directives Documents on File Type Date Recorded Patient Credit Administration Specialist Expl 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 Advanced Directive Advanced Directive Advanced Directive Advanced Directive Advanced Directive Advanced Directive Advanced Directive Advanced Directive Advanced Directive Advanced Directive Care Teams Auto Garage Attendant Relationship Specialty Start Date End Date Jethro Stevens DO [address] [place] [address] PCP - General Family Medicine 02/18/21 documented as of this encounter
--- OUTSIDE RECORDS SUMMARY | 2023-08-25 07:40 | External Medical Summary | Summary of Care ---
Author Name Unknown Organization [place] [address] Care Team Providers Care Roofing Subcontractor Name Role Phone StevensJethrorip Primary Care Provider Reason for Visit * Reason Onset Date Comments COVID-19 Screening 11/26/2021 Encounter Details Date Type Department Care Team Description 11/26/2021 Pandemic Screening [facility] [address] [facility] [place] [address] [place], Covid19 Screening [address] [place] [address] Suspected 2019 novel coronavirus infection* Allergies Active Allergy Reactions Severity Noted Date Comments Pollen 05/29/2013 Peanut Oil 05/29/2013 documented as of this encounter (statuses as of 11/26/2021) Medications Medication Sig Dispensed Refills Start Date [...] Oral Tablet Extended Release 24 Hour (Wellbutrin XL)Indications:Obes ity, Class II, BMI 35-39.9, isolated (see actual BMI) Take 1 in am. and 1 around 3:00 p.m. 180 Tab 5 08/06/2021 Active Naltrexone HCl 50 MG Oral Tablet (Revia)Indications: Obesity, Class II, BMI 35-39.9, isolated (see actual BMI) Take 0.5 Tabs by mouth 2 times a day. 90 Tab 0 08/06/2021 Active Propranolol HCl 20 MG Oral Tablet (Inderal)Indication s:Graves disease,Hyperthyroi dism Take 1 Tab by mouth 2 times a day. 60 Tab 5 09/08/2021 Active methIMAzole 5 MG Oral Tablet (Tapazole)Indicatio ns:Graves disease Take 1 Tablet by mouth daily. 30 Tablet 5 09/27/2021 Active hydrOXYzine HCl 50 MG Oral TabletIndications:A nxiety TAKE ONE TABLET BY MOUTH EVERY 6 HOURS NEEDED FOR ANXIETY 40 Tablet 3 10/29/2021 Active Phentermine HCl 15 MG Oral Capsule Take 1 Capsule by mouth daily. 30 Capsule 0 11/01/2021 Active Benzonatate 100 MG Oral Capsule (Tessalon Perles) Take 1 Capsule by mouth 3 times a day as needed for Cough. 30 Capsule 1 11/26/2021 Active Albuterol Sulfate HFA 108 (90 Base) MCG/ACT Inhalation Aerosol Solution Inhale 2 Puffs by mouth every 4 hours as needed for Cough, Shortness of Breath or Wheezing. 18 g 3 11/26/2021 Active predniSONE 20 MG Oral Tablet (Deltasone) Take 1 Tablet by mouth daily for 5 days, THEN 0.5 Tablets daily for 5 days. 8 Tablet 0 11/26/2021 12/06/2021 Active documented as of this encounter (statuses as of 11/26/2021) Active Problems Problem Noted Date Family history of [place] (myocardial infarct ion) 02/18/2021 Hyperthyroidism 02/18/2021 Anxiety 02/18/2021 Graves disease 02/18/2021 Other allergic rhinitis 07/30/2001 Overview: ICD-10 update of inactive term Asthma with severity to be determined Overview: ICD-10 update of inactive term ATTN DEFIC NONHYPERACT 01/24/2000 EXT ASTHMA W-O STAT ASTH Dysmenorrhea documented as of this encounter (statuses as of 11/26/2021) Resolved Problems Problem Noted Date Resolved Date [...] as of this encounter (statuses as of 11/26/2021) Immunizations Name Administration Dates Next Due DT [...] as of this encounter Progress Notes * Comfort Britt RN - 11/26/2021 3:[address] up covid swab documented in this encounter Plan of Treatment Upcoming Encounters Date Type Specialty Care Team Description 12/30/2021 Telemedicine Gastroenterology Feli Ceballos PA-C [address] [place] [address] Scheduled Orders Name Type Priority Associated Diagnoses Orde r Schedule SARS-COV-2 (COVID-19), NAAT Lab Routine Suspected 2019 novel coronavirus infection Ordered: 11/26/2021 Health Maintenance Due Date Last Done Comments [...] as of this encounter Visit Diagnoses Diagnosis Suspected 2019 novel coronavirus infection- Primary documented in this encounter Advance Directives Documents on File Type Date Recorded Patient Shed Workers Supervisor Expl anation Advanced Directive Advanced Directive Advanced [...] Advanced Directive Advanced Directive Care Teams Roofing Subcontractor Relationship Specialty Start Date End Date Jethro Stevens DO [address] [facility] [place] [address] PCP - General Family Medicine 02/18/21 documented as of this encounter
--- OUTSIDE RECORDS SUMMARY | 2023-08-25 07:40 | External Medical Summary | Summary of Care ---
Author Name Unknown Organization [place] [address] Care Team Providers Care Floral Designer Salesperson Name Role Phone Jethro Stevens DO Primary Care Provider Reason for Visit * Reason Onset Date Comments COVID-19 Screening 11/28/2021 Encounter Details Date Type Department Care Team Description 11/28/2021 Telephone COVID19 Screening [facility] DEPT CLOSED 08/31/[address] [place] [id number], Automated Provider COVID-19 Screening Allergies Active Allergy Reactions Severity Noted Date Comments Pollen 05/29/2013 Peanut Oil 05/29/2013 documented as of this encounter (statuses as of 11/29/2021) Medications Medication Sig Dispensed Refills Start Date [...] as of this encounter (statuses as of 11/29/2021) Active Problems Problem Noted Date Family history of [place] (myocardial infarct ion) 02/18/2021 Hyperthyroidism 02/18/2021 Anxiety 02/18/2021 Graves disease 02/18/2021 Other allergic rhinitis 07/30/2001 Overview: ICD-10 update of inactive term Asthma with severity to be determined Overview: ICD-10 update of inactive term ATTN DEFIC NONHYPERACT 01/24/2000 EXT ASTHMA W-O STAT ASTH Dysmenorrhea documented as of this encounter (statuses as of 11/29/2021) Resolved Problems Problem Noted Date Resolved Date [...] as of this encounter (statuses as of 11/29/2021) Immunizations Name Administration Dates Next Due DT [...] encounter Miscellaneous Notes * Telephone Encounter - Covid Results [facility] - 11/29/2021 8:00 PM EST Outreach Attempts IVR Call Nov 28 2021 12:46PM Answered - Success Results COVID: Negative IVR Message: Lopez Clements. Your COVID-19 from 11/26/2021 00:00:00 results are negative. This means you are NOT infected with coronavirus 19. If your cold/flu symptoms last longer than 7 days or get worse, contact your primary care physician. If you don't have a primary care physician, go to the nearest [facility] or urgent care clinic. To establish care with a [facility] provider, please call . Practice social distancing and good hand hygiene to keep yourself and others safe. Your results are also available for your reference in your [employer] account under 'Test & Lab Results.' If you are not enrolled in [employer], you can create an account by going to [email or web address]. You will also receive a letter in the mail with your results. If you are a [facility] staff member or employee, when you receive your result, please call [employer] between 7 a.m. and 4 p.m. at [phone]. Notify them of your test results and for instructions on returning to work after your quarantine period. Press 1 if you would like to speak with a nurse, press 2 to hear this message again. documented in this encounter Plan of Treatment Upcoming Encounters Date Type Specialty Care Team Description 12/30/2021 Telemedicine Gastroenterology Feli Ceballos PA-C [address] [place] [address] Health Maintenance Due Date Last [...] Documents on File Type Date Recorded Patient Editorial Director Expl anation Advanced Directive Advanced Directive Advanced [...] Directive Advanced Directive Advanced Directive Care Teams Floral Designer Salesperson Relationship Specialty Start Date End Date Jethro Stevens DO [address] [facility] [place] [address] PCP - General Family Medicine 02/18/21 documented as of this encounter
--- OUTSIDE RECORDS SUMMARY | 2023-08-25 07:40 | External Medical Summary ---
Author Name Unknown Address Unknown Organization K01:[facility] [address] [place] [address] Laboratory Report Ordering Provider Test Date Status JULIENNE GALARZA 11/26/2021 15:39:30 Final Observation Date Value Abnormality Reference (Units ) Status SARS Coronavirus 2 11/26/2021 15:39:30 Negative N egative Final Performing Location [facility] [address] [address]
--- OUTSIDE RECORDS SUMMARY | 2023-08-25 07:40 | External Medical Summary | Summary of Care ---
Author Name Unknown Organization [place] [address] Care Team Providers Care Floral Designer Name Role Phone Stevens Jethro Mendoza DO Primary Care Provider Reason for Visit * Reason Onset Date Comments Medication Refill 12/13/2021 Encounter Details Date Type Department Care Team Description 12/13/2021 Refill Nutrition & Weight Management, [place] [address] [place] [address] Feli Martin PA-C [address] [place] [address] Obesity, Class II, BMI 35-39.9, isolated (see actual BMI) Allergies Active Allergy Reactions Severity Noted Date Comments Pollen 05/29/2013 Peanut Oil 05/29/2013 documented as of this encounter (statuses as of 12/13/2021) Medications Medication Sig Dispensed Refills Start Date [...] Oral Tablet Extended Release 24 Hour (Wellbutrin XL)Indications:Obesi ty, Class II, BMI 35-39.9, isolated (see actual BMI) Take 1 in am. and 1 around 3:00 p.m. 180 Tab 5 08/06/2021 Active Naltrexone HCl 50 MG Oral Tablet (Revia)Indications:O besity, Class II, BMI 35-39.9, isolated (see actual BMI) Take 0.5 Tabs by mouth 2 times a day. 90 Tab 0 08/06/2021 Active Propranolol HCl 20 MG Oral Tablet (Inderal)Indications :Graves disease,Hyperthyroid ism Take 1 Tab by mouth 2 times a day. 60 Tab 5 09/08/2021 Active methIMAzole 5 MG Oral Tablet (Tapazole)Indication s:Graves disease Take 1 Tablet by mouth daily. 30 Tablet 5 09/27/2021 Active hydrOXYzine HCl 50 MG Oral TabletIndications:An [...] 18 g 3 11/26/2021 Active Phentermine HCl 15 MG Oral Capsule Take 1 Capsule by mouth daily. 30 Capsule 0 12/10/2021 Active documented as of this encounter (statuses as of 12/13/2021) Active Problems Problem Noted Date Family history of [place] (myocardial infarct ion) 02/18/2021 Hyperthyroidism 02/18/2021 Anxiety 02/18/2021 Graves disease 02/18/2021 Other allergic rhinitis 07/30/2001 Overview: ICD-10 update of inactive term Asthma with severity to be determined Overview: ICD-10 update of inactive term ATTN DEFIC NONHYPERACT 01/24/2000 EXT ASTHMA W-O STAT ASTH Dysmenorrhea documented as of this encounter (statuses as of 12/13/2021) Resolved Problems Problem Noted Date Resolved Date [...] as of this encounter (statuses as of 12/13/2021) Immunizations Name Administration Dates Next Due DT [...] encounter Miscellaneous Notes * Telephone Encounter - Feli Martin PA-C - 12/13/2021 12:42 PM EST Refused Prescriptions: Disp Refills Naltrexone HCl 50 MG Oral Tablet (Revia) 90 Tab*0 Sig: Take 0.5 Tablets by mouth 2 times a day. Refused By: FELI MARTIN Reason for Refusal: Course of treatment complete * Telephone Encounter - EDE Hackett - 12/13/2021 9:17 AM EST Please review and approve. Thank you documented in this encounter Plan of Treatment Upcoming Encounters Date Type Specialty Care Team Description 12/30/2021 Telemedicine Gastroenterology Feli Martin PA-C [address] [place], [place] [id number] Health Maintenance Due Date Last Done Comments [...] II, BMI 35-39.9, isolated (see actual BMI) Morbid obesity documented in this encounter Advance Directives Documents on File Type Date Recorded Patient Senior Estimator Expl anation Advanced Directive Advanced Directive Advanced [...] Directive Advanced Directive Care Teams Floral Designer Relationship Specialty Start Date End Date Jethro Stevens, [address] [facility] [place] [address] PCP - General Family Medicine 02/18/21 documented as of this encounter
--- OUTSIDE RECORDS SUMMARY | 2023-08-25 07:40 | External Medical Summary | Summary of Care ---
Author Name Unknown Organization [place] [address] Care Team Providers Care Strategic Buyer Name Role Phone Jethro Stevens DO Primary Care Provider Reason for Visit * Reason Onset Date Comments Pre Cert/Prior Auth 10/06/2021 Encounter Details Date Type Department Care Team Description 10/06/2021 Telephone Nutrition & Weight Management, [place] [address], [place] [id number] [facility] [address] [place], [place] [id number] Pre Cert/Prior Auth Allergies Active Allergy Reactions Severity Noted Date Comments Pollen 05/29/2013 Peanut Oil 05/29/2013 documented as of this encounter (statuses as of 10/07/2021) Medications Medication Sig Dispensed Refills Start Date End Date Status ALBUTEROL SULFATE HFA 108 (90 BASE) MCG/ACT IN AERS as needed 0 Active IBUPROFEN 600 MG PO TABS None Entered 0 Active SUMATRIPTAN SUCCINATE 50 MG PO TABSIndications:Migra ine with intractable migraine 1 TABLET 1 TIME ONLY,REPEAT AFTER 2 HR NEEDED 30 Tab 3 11/12/2013 Active hydrOXYzine HCl 50 MG Oral TabletIndications:Anx iety TAKE ONE TABLET BY MOUTH EVERY 6 HOURS NEEDED FOR ANXIETY 40 Tab 3 05/20/2021 Active Ozempic (0.25 or 0.5 MG/DOSE) 2 MG/1.5ML Solution Pen-injector (Semaglutide(0.25 or 0.5MG/DOS)) Inject 0.25 mg under the skin once a week. 1.5 mL 1 08/03/2021 Active buPROPion HCl ER (XL) 150 MG Oral Tablet Extended Release 24 Hour (Wellbutrin XL)Indications:Obesit y, Class II, BMI 35-39.9, isolated (see actual BMI) Take 1 in am. and 1 around 3:00 p.m. 180 Tab 5 08/06/2021 Active Naltrexone HCl 50 MG Oral Tablet (Revia)Indications:Ob esity, Class II, BMI 35-39.9, isolated (see actual BMI) Take 0.5 Tabs by mouth 2 times a day. 90 Tab 0 08/06/2021 Active Propranolol HCl 20 MG Oral Tablet (Inderal)Indications: Graves disease,Hyperthyroidi sm Take 1 Tab by mouth 2 times a day. 60 Tab 5 09/08/2021 Active methIMAzole 5 MG Oral Tablet (Tapazole)Indications :Graves disease Take 1 Tablet by mouth daily. 30 Tablet 5 09/27/2021 Active Phentermine HCl 15 MG Oral Capsule Take 1 Capsule by mouth daily. 30 Capsule 0 09/30/2021 Active documented as of this encounter (statuses as of 10/07/2021) Active Problems Problem Noted Date Family history of [place] (myocardial infarct ion) 02/18/2021 Hyperthyroidism 02/18/2021 Anxiety 02/18/2021 Graves disease 02/18/2021 Other allergic rhinitis 07/30/2001 Overview: ICD-10 update of inactive term Asthma with severity to be determined Overview: ICD-10 update of inactive term ATTN DEFIC NONHYPERACT 01/24/2000 EXT ASTHMA W-O STAT ASTH Dysmenorrhea documented as of this encounter (statuses as of 10/07/2021) Resolved Problems Problem Noted Date Resolved Date [...] as of this encounter (statuses as of 10/07/2021) Immunizations Name Administration Dates Next Due DT - Diptheria/Tetanus (PEDS) 01/24/1991, 987,03/21/1986 DTP Vaccine 01/23/1986,1985 Haemophilus B (HIB) 03/30/1989 Hepatitis B, 0-19 yrs 02/25/1997,09/11/1996, MMR - Measles/Mumps/Rubella Vaccine 01/24/1991,1 12/05/1986 OPV [...] drink = 0.6 oz pur e alcohol) Sex Assigned at Date Recorded Not on file Job Start Date Occupation Industry Not on file Not on file Not on file documented as of this encounter Miscellaneous Notes * Telephone Encounter - EDE Hackett - 10/07/2021 12:53 PM EST Approved. Pharmacy informed. * Telephone Encounter - EDE Hackett - 10/06/2021 12:34 PM EST PRIOR AUTH SUBMITTED FOR PHENTERMINE. 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 Forestry Adviser Expl 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 Advanced Directive Advanced Directive Advanced Directive Advanced Directive Advanced Directive Advanced Directive Advanced Directive Advanced Directive Advanced Directive Care Teams Strategic Buyer Relationship Specialty Start Date End Date Jethro Stevens DO [address] [place] [address] PCP - General Family Medicine 02/18/21 documented as of this encounter
--- OUTSIDE RECORDS SUMMARY | 2023-08-25 07:40 | External Medical Summary | Summary of Care ---
Author Name Unknown Organization [place] [address] Care Team Providers Care Manager Of Product Name Role Phone Jethro Stevens DO Primary Care Provider Reason for Visit * Reason Onset Date Comments Medication Refill 12/10/2021 Encounter Details Date Type Department Care Team Description 12/10/2021 Refill Nutrition & Weight Management, [place] [address] [place] [address] Feli Martin PA-C [address] [place], [place] [phone] Allergies Active Allergy Reactions Severity Noted Date Comments Pollen 05/29/2013 Peanut Oil 05/29/2013 documented as of this encounter (statuses as of 12/10/2021) Medications Medication Sig Dispensed Refills Start Date [...] mouth daily. 30 Capsule 0 12/10/2021 Active Phentermine HCl 15 MG Oral Capsule Take 1 Capsule by mouth daily. 30 Capsule 0 11/01/2021 12/10/2021 Discontinue d(Refill) documented as of this encounter (statuses as of 12/10/2021) Active Problems Problem Noted Date Family history of [place] (myocardial infarct ion) 02/18/2021 Hyperthyroidism 02/18/2021 Anxiety 02/18/2021 Graves disease 02/18/2021 Other allergic rhinitis 07/30/2001 Overview: ICD-10 update of inactive term Asthma with severity to be determined Overview: ICD-10 update of inactive term ATTN DEFIC NONHYPERACT 01/24/2000 EXT ASTHMA W-O STAT ASTH Dysmenorrhea documented as of this encounter (statuses as of 12/10/2021) Resolved Problems Problem Noted Date Resolved Date [...] as of this encounter (statuses as of 12/10/2021) Immunizations Name Administration Dates Next Due DT [...] Telephone Encounter - Feli Martin PA-C - 12/10/2021 4:31 PM EST Signed Prescriptions: Disp Refills Phentermine HCl 15 MG Oral Capsule 30 Cap*0 Sig: Take 1 Capsule by mouth daily. Authorizing Provider: FELI MARTIN * Telephone Encounter - Christel Ruiz RN - 12/10/2021 3:33 PM EST Pending Prescriptions: Disp Refills Phentermine HCl 15 MG Oral Capsule 30 Cap*0 Sig: Take 1 Capsuleby mouth daily. documented in this encounter Plan of Treatment Upcoming Encounters Date Type Specialty Care Team Description 12/30/2021 Telemedicine Gastroenterology Feli Martin PA-C [address] [place], [place] [phone] Health Maintenance Due Date Last Done Comments [...] Documents on File Type Date Recorded Patient Guest Service Agent Expl anation Advanced Directive Advanced Directive Advanced [...] Directive Advanced Directive Advanced Directive Care Teams Manager Of Product Relationship Specialty Start Date End Date Jethro Stevens DO [address] [facility] [place] [address] PCP - General Family Medicine 02/18/21 documented as of this encounter
--- OUTSIDE RECORDS SUMMARY | 2023-08-25 07:40 | External Medical Summary | Summary of Care ---
Author Name Unknown Organization [place] [address] Care Team Providers Care Learning And Development Manager Name Role Phone Jethro Stevens DO Primary Care Provider Reason for Visit * Reason Onset Date Comments Pre Cert/Prior Auth 10/06/2021 Encounter Details Date Type Department Care Team Description 10/06/2021 Telephone Nutrition & Weight Management, [place] [address], [place] [id number] [facility] [address] [place], [place] [phone] Pre Cert/Prior Auth Allergies Active Allergy Reactions Severity Noted Date Comments Pollen 05/29/2013 Peanut Oil 05/29/2013 documented as of this encounter (statuses as of 10/06/2021) Medications Medication Sig Dispensed Refills Start Date [...] as of this encounter (statuses as of 10/06/2021) Active Problems Problem Noted Date Family history of [place] (myocardial infarct ion) 02/18/2021 Hyperthyroidism 02/18/2021 Anxiety 02/18/2021 Graves disease 02/18/2021 Other allergic rhinitis 07/30/2001 Overview: ICD-10 update of inactive term Asthma with severity to be determined Overview: ICD-10 update of inactive term ATTN DEFIC NONHYPERACT 01/24/2000 EXT ASTHMA W-O STAT ASTH Dysmenorrhea documented as of this encounter (statuses as of 10/06/2021) Resolved Problems Problem Noted Date Resolved Date [...] as of this encounter (statuses as of 10/06/2021) Immunizations Name Administration Dates Next Due DT - Diptheria/Tetanus (PEDS) 01/24/1991, 987,03/21/1986 DTP Vaccine 01/23/1986,1985 Haemophilus B (HIB) 03/30/1989 Hepatitis B, 0-19 yrs 02/25/1997,09/11/1996,06/20 MMR - Measles/Mumps/Rubella Vaccine 01/24/1991,12/05/1986 OPV - Polio Virus Vaccine (Oral) 991,09/26/1986,01/23/1986,1985 [...] Telemedicine Gastroenterology Feli Ceballos PA-C [address] [place] [address] Health Maintenance Due Date Last Done Comments [...] Documents on File Type Date Recorded Patient Down Filler Expl 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 Advanced Directive Advanced Directive Advanced Directive Advanced Directive Advanced Directive Advanced Directive Advanced Directive Advanced Directive Advanced Directive Care Teams Learning And Development Manager Relationship Specialty Start Date End Date Jethro Stevens DO [address] [place] [address] PCP - General Family Medicine 02/18/21 documented as of this encounter
--- OUTSIDE RECORDS SUMMARY | 2023-08-25 07:40 | External Medical Summary | Summary of Care ---
Author Name Unknown Organization [place] [address] Care Team Providers Care Regional Recruiter Name Role Phone Negro Stevensr Reji Primary Care Provider Encounter Details Date Type Department Care Team Description 11/01/2021 Orders Only Outcomes Research Department [address] [place] [address] Valdez Melendez CHRA [facility] Other*[id number] Allergies Active Allergy Reactions Severity Noted Date Comments Pollen 05/29/2013 Peanut Oil 05/29/2013 documented as of this encounter (statuses as of 11/01/2021) Medications Medication Sig Dispensed Refills Start Date [...] 09/27/2021 Active hydrOXYzine HCl 50 MG Oral TabletIndications:Anx iety TAKE ONE TABLET BY MOUTH EVERY 6 HOURS NEEDED FOR ANXIETY 40 Tablet 3 10/29/2021 Active Phentermine HCl 15 MG Oral Capsule Take 1 Capsule by mouth daily. 30 Capsule 0 11/01/2021 Active documented as of this encounter (statuses as of 11/01/2021) Active Problems Problem Noted Date Family history of [place] (myocardial infarct ion) 02/18/2021 Hyperthyroidism 02/18/2021 Anxiety 02/18/2021 Graves disease 02/18/2021 Other allergic rhinitis 07/30/2001 Overview: ICD-10 update of inactive term Asthma with severity to be determined Overview: ICD-10 update of inactive term ATTN DEFIC NONHYPERACT 01/24/2000 EXT ASTHMA W-O STAT ASTH Dysmenorrhea documented as of this encounter (statuses as of 11/01/2021) Resolved Problems Problem Noted Date Resolved Date [...] as of this encounter (statuses as of 11/01/2021) Immunizations Name Administration Dates Next Due DT [...] Telemedicine Gastroenterology Feli Ceballos PA-C [address] [place] [address] Scheduled Orders Name Type Priority Associated Diagnoses Orde r Schedule MYCODE INITIAL ADULT Lab Routine [facility] Other*[id number] Expected: 11/01/2021 (Approximate), Expires: 11/21/2022 Health Maintenance Due Date Last Done Comments [...] this encounter Visit Diagnoses Diagnosis [facility] Other*[id number] documented in this encounter Advance Directives Documents on File Type Date Recorded Patient Applier Expl 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 Advanced Directive Advanced Directive Advanced Directive Advanced Directive Advanced Directive Advanced Directive Advanced Directive Advanced Directive Advanced Directive Advanced Directive Care Teams Regional Recruiter Relationship Specialty Start Date End Date Jethro Stevens DO [address] [facility] [place] [address] PCP - General Family Medicine 02/18/21 documented as of this encounter
--- OUTSIDE RECORDS SUMMARY | 2023-08-25 07:40 | External Medical Summary | Summary of Care ---
Author Name Unknown Organization [place] [address] Care Team Providers Care Assistant To The Director Name Role Phone Jethro Stevens DO Primary Care Provider Reason for Visit * Reason Comments Acute Encounter Details Date Type Department Care Team Description 11/26/2021 Telemedicine Family Practice [facility] [address] [facility] [place] [address] Stfef Henderson CRNP [address] [facility] [place] [address] Viral URI with cough*; Mild intermittent asthma with exacerbation Allergies Active Allergy Reactions Severity Noted Date [...] days. 8 Tablet 0 11/26/2021 12/06/2021 Active ALBUTEROL SULFATE HFA 108 (90 BASE) MCG/ACT IN AERS as needed 0 11/26/2021 Discontin ue d(Refill) documented as of this encounter (statuses [...] as of this encounter Progress Notes * Steff Carolle KIRSTEN Henderson - 11/26/2021 12:29 PM EST URI Family Medicine Visit Patient location: HOME. I was in a hospital or clinic location. After connecting through [employer],patient was verified with two unique identifiers. Patient (or authorized legal patient access representative) was then informed that this was a Telemedicine visit and being conducted confidentially over secure lines. Methods to assure confidentiality were taken. Patient acknowledged consent and understanding of pr ivacy and security of the Telemedicine visit. The patient agreed to participate. CC: URI History of Present Illness: Starr oDve is a 36 year old female presenting with complaints of URI symptoms starting on which improved but then worse again 2 days ago. 5 yo tested positive for Human Jayla virus Not vaccinated for covid or flu Only using albuterol hfa +fever, t max 101.0 +chills +sweats +decreased appetite +tolerating fluids +congestion +loss of taste or smell +runny nose +PND -ear pain +sore throat +blurred vision -eye discharge +cough +productive of mucous +sob +wheezing -nausea -diarrhea -constipation -vomiting +body aches -Rash +Sleep disruption +headache Social History Socioeconomic History • Marital status: Spouse name: Not on file • Number of children: Not on file • Years of education: Not on file • Highest education level: Not on file Occupational History • Not on file Tobacco Use • Smoking status: Never Smoker • Smokeless tobacco: Never Used Vaping Use • Vaping Use: Never used Substance and Sexual Activity • Alcohol use: No • Drug use: No • Sexual activity: Not on file Other Topics Concern • Not on file Social History Narrative • Not on file Social Determinants of Health Financial Resource Strain: Not on file Food Insecurity: Not on file Transportation Needs: Not on file Physical Activity: Not on file Stress: Not on file Social Connections: Not on file Intimate Partner Violence: Not on file Housing Stability: Not on file PMH: Past Medical History: Diagnosis Date • Allergic rhinitis due to other allergen immunotherapy for 2 years • Asthma, allergic exercise component • Attention deficit disorder without hyperactivity • Graves disease • Reactive depression Past Surgical History: Procedure Laterality Date • DENTAL SURGERY PROCEDURE NEC 1 wisdom tooth • INCISION OF EARDRUM as child Myringotomy/with tubes REMOVE TONSILS & ADENOIDS, UNDER 12 as child Tonsillectomy/Adenoids,<12 Y/O No outpatient medications have been marked as taking for the 11/26/21 encounter (Appointment) with KIRSTEN Tran. Review of patient's allergies indicates: Allergen Reactions • Environmental [Pollen] • Peanut Oil Most Recent Immunizations Administered Date(s) Administered • Allergy Serum 05/17/2001 • DT - Diptheria/Tetanus (PEDS) 01/24/1991 • DTP Vaccine 01/23/1986 • Haemophilus B (HIB) 03/30/1989 • Hepatitis B, 0-19 yrs 02/25/1997 • MMR - Measles/Mumps/Rubella Vaccine 01/24/1991 • OPV - Polio Virus Vaccine (Oral) 01/24/1991 Seasonal Influenza, Quadrivalent, No Preserve, 6 Mons & Above, IM 09/23/2020 • Seasonal Influenza, Split, IIV3, With Preserve, Inj 08/08/2013 • TD - Tetanus/Diptheria (ADULT) 07/04/1997 Physical Exam: There were no vitals taken for this visit. Physical Exam HENT: Head: Normocephalic. Pulmonary: Effort: Pulmonary effort is normal. Neurological: General: No focal deficit present. Mental Status: She is alert and oriented to person, place, and time. Psychiatric: Mood and Affect: Mood normal. Behavior: Behavior normal. Thought Content: Thought content normal. Judgment: Judgment normal. Assessment and Plan: 1. Viral URI with cough URI symptoms starting 11/13 that improved but now with new symptoms x 2 days Not vaccinated RECOMMEND COVID TESTING - RETURN TO WORK OR SCHOOL 2. Mild intermittent asthma with exacerbation Uri TRIGGER Add prednisone taper Add tessalon Consider addition of OTC mucinex Increase albuterol hfa to every 4 hours - RETURN TO WORK OR SCHOOL Recommend supportive care including: -Humidifier -Rest -Push fluids -Reviewed pathophysiology of viral URI -Quarantine until covid results are back -Recommend handwashing and covering cough -Reviewed signs and symptoms in which to seek medical care I have advised the patient to call our office incase of any worsening or new symptoms. I spent a total of 20-29 minutes (exact time 20 mins) on the date of service in preparation, delivery, and documentation of the care provided to Starr Dove excluding any time spent in the performance of separately billed services. Casandra, MSN, KIRSTEN [facility] documented in this encounter Plan of Treatment Upcoming Encounters Date Type Specialty Care Team Description 12/30/2021 [facility] [address] [place], [place] [phone] Health Maintenance Due Date Last Done Comments [...] as of this encounter Visit Diagnoses Diagnosis Viral URI with cough- Primary Acute upper respiratory infections of unspecified site Mild intermittent asthma with exacerbation Unspecified asthma, with exacerbation documented in this encounter Advance Directives Documents on File Type Date Recorded Patient Senior Business Intelligence Analyst Expl anation Advanced Directive Advanced Directive [...] Directive Advanced Directive Advanced Directive Care Teams Assistant To The Director Relationship Specialty Start Date End Date Jethro Stevens DO [address] [facility] [place] [address] PCP - General Family Medicine 02/18/21 documented as of this encounter
--- OUTSIDE RECORDS SUMMARY | 2023-08-25 07:40 | External Medical Summary | Summary of Care ---
Author Name Unknown Organization [place] [address] Care Team Providers Care Garage Helper Name Role Phone Rodney Jethro Floresrip Primary Care Provider Reason for Visit * Reason Onset Date Comments Medication Refill 11/02/2021 Encounter Details Date Type Department Care Team Description 11/02/2021 Refill Nutrition & Weight Management, [place] [address] [place] [address] [facility] [address] [place] [address] Obesity, Class II, BMI 35-39.9, isolated (see actual BMI) Allergies Active Allergy Reactions Severity Noted Date Comments Pollen 05/29/2013 Peanut Oil 05/29/2013 documented as of this encounter (statuses as of 11/02/2021) Medications Medication Sig Dispensed Refills Start Date [...] as of this encounter (statuses as of 11/02/2021) Active Problems Problem Noted Date Family history of [place] (myocardial infarct ion) 02/18/2021 Hyperthyroidism 02/18/2021 Anxiety 02/18/2021 Graves disease 02/18/2021 Other allergic rhinitis 07/30/2001 Overview: ICD-10 update of inactive term Asthma with severity to be determined Overview: ICD-10 update of inactive term ATTN DEFIC NONHYPERACT 01/24/2000 EXT ASTHMA W-O STAT ASTH Dysmenorrhea documented as of this encounter (statuses as of 11/02/2021) Resolved Problems Problem Noted Date Resolved Date Encounter for supervision of other normal pregna ncy 05/29/2013 10/10/2013 Overview: Transfer of Care; Records received 02/22/13: glucose 95; Hep BsAg neg; Hep C ab-nonreactive; HIV nonreactive; RPR nonreactive; rubella immune; O+, antibody negative 03/05/13- chlamydia negative, gonorrhea negative Patient received flu vaccine. 08/08/2013 Charlee Souza, LISSA GBS Negative KIRSTEN Rios, SAROJ 09/30/2013 ICD-10 update of inactive term documented as of this encounter (statuses as of 11/02/2021) Immunizations Name Administration Dates Next Due DT [...] Telephone Encounter - Feli Martin PA-C - 11/02/2021 11:40 AM EST Refused Prescriptions: Disp Refills Ozempic (0.25 or 0.5 MG/DOSE) 2 MG/1.5ML S*1.5 mL 1 Sig: Inject 0.25 mg under the skin once a week. Refused By: FELI MARTIN Reason for Refusal: Other (comment below) Naltrexone HCl 50 MG Oral Tablet (Revia) 90 Tab*0 Sig: Take 0.5 Tablets by mouth 2 times a day. Refused By: FELI MARTIN Reason for Refusal: Other (comme nt below) Phentermine HCl 15 MG Oral Capsule 30 Cap*0 Sig: Take 1 Capsule by mouth daily. Refused By: FELI MARTIN Reason for Refusal: Other (comment below) * Telephone Encounter - EDE Hackett - 11/02/2021 10:35 AM EST Pending Prescriptions: Disp Refills Ozempic (0.25 or 0.5 MG/DOSE) 2 MG/1.5ML *1.5 mL 1 Sig: Inject 0.25 mg under the skin once a week. Naltrexone HCl 50 MG Oral Tablet (Revia) 90 Tab*0 Sig: Take 0.5 Tablets by mouth 2 times a day. Phentermine HCl 15 MG Oral Capsule 30 Cap*0 Sig: Take 1 Capsule by mouth daily. documented in this encounter Plan of Treatment Upcoming Encounters Date Type Specialty Care Team Description 12/30/2021 Telemedicine Gastroenterology [facility]eli Martin [facility]-C [address] [facility] [place] [address] Health Maintenance Due Date Last Done Comments [...] Documents on File Type Date Recorded Patient Dumper Expl 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 Advanced Directive Advanced Directive Advanced Directive Advanced Directive Advanced Directive Advanced Directive Advanced Directive Advanced Directive Advanced Directive Advanced Directive Care Teams Garage Helper Relationship Specialty Start Date End Date Jethro Stevens DO [address] [place] [address] PCP - General Family Medicine 02/18/21 documented as of this encounter
--- OUTSIDE RECORDS SUMMARY | 2023-08-25 07:40 | External Medical Summary | Summary of Care ---
Author Name Unknown Organization [place] [address] Care Team Providers Care Room Service Runner Name Role Phone Stevens Jethro Mendoza DO Primary Care Provider Reason for Visit * Reason Onset Date Comments Medication Refill 10/29/2021 Encounter Details Date Type Department Care Team Description 10/29/2021 Refill Nutrition & Weight Management, [place] [address] [place] [address] Feli Martin PA-C [address] [place], [place] [phone] Allergies Active Allergy Reactions Severity Noted Date [...] Oral Tablet Extended Release 24 Hour (Wellbutrin XL)Indications:Obe sity, Class II, BMI 35-39.9, isolated (see actual BMI) Take 1 in am. and 1 around 3:00 p.m. 180 Tab 5 08/06/2021 Active Naltrexone HCl 50 MG Oral Tablet (Revia)Indications :Obesity, Class II, BMI 35-39.9, isolated (see actual BMI) Take 0.5 Tabs by mouth 2 times a day. 90 Tab 0 08/06/2021 Active Propranolol HCl 20 MG Oral Tablet (Inderal)Indicatio ns:Graves disease,Hyperthyro idism Take 1 Tab by mouth 2 times a day. 60 Tab 5 09/08/2021 Active methIMAzole 5 MG Oral Tablet (Tapazole)Indicati ons:Graves disease Take 1 Tablet by mouth daily. 30 Tablet 5 09/27/2021 Active Phentermine HCl 15 MG Oral Capsule Take 1 Capsule by mouth daily. 30 Capsule 0 11/01/2021 Active Phentermine HCl 15 MG Oral Capsule Take 1 Capsule by mouth daily. 30 Capsule 0 09/30/2021 10/29/2021 Discontinued (Refill) documented as of this encounter (statuses as [...] Charlee Souza, LISSA GBS Negative KIRSTEN Rios, SAROJM 09/30/2013 ICD-10 [...] Telephone Encounter - Feli Martin PA-C - 11/01/2021 9:02 AM EST Signed Prescriptions: Disp Refills Phentermine HCl 15 MG Oral Capsule 30 Cap*0 Sig: Take 1 Capsule by mouth daily. Authorizing Provider: FELI MARTIN * Telephone Encounter - EDE Hackett - 10/29/2021 3:31 PM EST Please review and approve. Thank you documented in this encounter Plan of Treatment Upcoming Encounters Date Type Specialty Care Team Description 12/30/2021 Telemedicine Gastroenterology Feli Martin PA-C [address] [facility] [place] [address] Health Maintenance Due Date Last Done Comments [...] Documents on File Type Date Recorded Patient Billing Representative Expl 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 Advanced Directive Advanced Directive Advanced Directive Advanced Directive Advanced Directive Advanced Directive Advanced Directive Advanced Directive Advanced Directive Advanced Directive Care Teams Room Service Runner Relationship Specialty Start Date End Date Jethro Stevens DO [address] [facility] [place] [address] PCP - General Family Medicine 02/18/21 documented as of this encounter
--- OUTSIDE RECORDS SUMMARY | 2023-08-25 07:41 | External Medical Summary | Summary of Care ---
Author Name Unknown Organization [place] [address] Care Team Providers Care Electromedical Equipment Repairer Name Role Phone Jethro Stevens DO Primary Care Provider Reason for Visit * Reason Onset Date Comments Test Results 05/21/2021 Encounter Details Date Type Department Care Team Description 05/21/2021 Telephone Endocrinology, [place] [address] [place] [address] Francis Clark CRNP [address] [place] [address] Test Results Allergies Active Allergy Reactions Severity Noted Date Comments Pollen 05/29/2013 Peanut Oil 05/29/2013 documented as of this encounter (statuses as of 05/26/2021) Medications Medication Sig Dispensed Refills Start Date End Date Status ALBUTEROL SULFATE HFA 108 (90 BASE) MCG/ACT IN AERS as needed 0 Active IBUPROFEN 600 MG PO TABS None Entered 0 Active SUMATRIPTAN SUCCINATE 50 MG PO TABSIndications:Mi graine with intractable migraine 1 TABLET 1 TIME ONLY,REPEAT AFTER 2 HR NEEDED 30 Tab 3 11/12/2013 Active Propranolol HCl 20 MG Oral Tablet (Inderal)Indicatio ns:Graves disease,Hyperthyro idism Take 1 Tab by mouth 2 times a day. 90 Tab 5 05/18/2021 Active hydrOXYzine HCl 50 MG Oral TabletIndications: Anxiety TAKE ONE TABLET BY MOUTH EVERY 6 HOURS NEEDED FOR ANXIETY 40 Tab 3 05/20/2021 Active methIMAzole 10 MG Oral Tablet (Tapazole)Indicati ons:Graves disease Take 1 Tab by mouth daily. 30 Tab 5 05/21/2021 Active methIMAzole 10 MG Oral Tablet (Tapazole)Indicati ons:Graves disease Take 1.5 Tabs by mouth daily. 45 Tab 5 12/25/2020 05/21/2021 Discontinued( Refill) documented as of this encounter (statuses as of 05/26/2021) Active Problems Problem Noted Date Family history of [place] (myocardial infarct ion) 02/18/2021 Hyperthyroidism 02/18/2021 Anxiety 02/18/2021 Graves disease 02/18/2021 Other allergic rhinitis 07/30/2001 Overview: ICD-10 update of inactive term Asthma with severity to be determined Overview: ICD-10 update of inactive term ATTN DEFIC NONHYPERACT 01/24/2000 EXT ASTHMA W-O STAT ASTH Dysmenorrhea documented as of this encounter (statuses as of 05/26/2021) Resolved Problems Problem Noted Date Resolved Date [...] as of this encounter (statuses as of 05/26/2021) Immunizations Name Administration Dates Next Due DT [...] Smoker Smokeless Tobacco: Never Used Alcohol Use Drinks/Week oz/Week Comments No Sex Assigned at Date Recorded Not on file Job Start Date Occupation Industry Not on file Not on file Not on file documented as of this encounter Miscellaneous Notes * Telephone Encounter - Jane aRza LPN - 05/26/2021 9:08 AM EDT Patient returned call at this time. Staff relayed message as noted by Provider. Patient stated understanding and able to talk back instructions. Patient wanted to let Provider know that she is still experiencing tiredness/sluggishness. Patient expressed maybe this is something that will level out with medication adjustment/labs normalizing? If Provider has alternative course of action, patient can be called back. Jane Raza LPN Endocrinology [place] [facility] * Telephone Encounter - Jane Raza LPN - 05/26/2021 8:14 AM EDT Patient had called clinic and left message on 05/25/21. Attempted to call patient at this time, with no answer. LVMM asking patient to return call to clinic. Jane Raza LPN Endocrinology [place] [facility] * Telephone Encounter - Francis Clark CRNP - 05/21/2021 11:02 AM EDT Called patient to review recent lab results. No answer LMTC. Patient currently on 15mg of methimazole daily for her Graves Disease. TFT's normalizing. Would recommend slightly decreasing her methimazole to 10mg daily. Patient can have her thyroid levels checked again in one month. Orders placed and new prescription sent. Results for orders placed or performed in visit on 05/14/21 T3, FREE Result Value Ref Range T3, Free 2.8 2.5 - 4.3 pg/mL T4, FREE Result Value Ref Range T4, Free 1.0 0.9 - 1.7 ng/dL TSH Result Value Ref Range TSH 1.40 0.27 - 4.20 uIU/mL documented in this encounter Plan of Treatment Health Maintenance Due Date Last Done Comments Pneumococcal Vaccine: Pediatrics (0 to 5 Years) and At-Risk Patients (6 to 64 Years) (1 of 2 - PPSV23) 1991 DTaP,Tdap,and Td Vaccines (6 - Tdap) 1996 07/04/1997, 01/24/1991, 04/03/1987, Additional history exists COVID-19 Vaccine (1) 1997 PAP SMEAR-EVERY 3 YRS,AGES 21-65 2006 Influenza Vaccine (FLU shot) (#1) 2021 09/23/2020, 08/08/2013 MENINGOCOCCAL (MENACTRA/MENVEO) Aged Out No longer eligible based on patient's age to complete this topic documented as of this encounter Implants Not on filedocumented as of this encounter Visit Diagnoses Diagnosis Graves disease Toxic diffuse goiter without mention of thyrotoxic crisis or storm documented in this encounter Advance Directives Documents on File Type Date Recorded Patient Early Childhood Associate Expl 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 Advanced Directive Advanced Directive Advanced Directive Advanced Directive Advanced Directive Advanced Directive Advanced Directive
--- OUTSIDE RECORDS SUMMARY | 2023-08-25 07:41 | External Medical Summary | Summary of Care ---
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 Name Role Phone Rodney Jethro Floresrip Primary Care Provider Reason for Visit * Reason Onset Date Comments Advice 06/23/2021 Encounter Details Date Type Department Care Team Description 06/23/2021 Telephone Endocrinology, [place] [address] [place] [address] Francis Clark CRNP [address] [place] [address] Advice Allergies Active Allergy Reactions Severity Noted Date Comments Pollen 05/29/2013 Peanut Oil 05/29/2013 documented as of this encounter (statuses as of 06/23/2021) Medications Medication Sig Dispensed Refills Start Date End Date Status ALBUTEROL SULFATE HFA 108 (90 BASE) MCG/ACT IN AERS as needed 0 Active IBUPROFEN 600 MG PO TABS None Entered 0 Active SUMATRIPTAN SUCCINATE 50 MG PO TABSIndications:Migrai ne with intractable migraine 1 TABLET 1 TIME ONLY,REPEAT AFTER 2 HR NEEDED 30 Tab 3 11/12/2013 Active Propranolol HCl 20 MG Oral Tablet (Inderal)Indications:G raves disease,Hyperthyroidis m Take 1 Tab by mouth 2 times a day. 90 Tab 5 05/18/2021 Active hydrOXYzine HCl 50 MG Oral TabletIndications:Anxi ety TAKE ONE TABLET BY MOUTH EVERY 6 HOURS NEEDED FOR ANXIETY 40 Tab 3 05/20/2021 Active methIMAzole 10 MG Oral Tablet (Tapazole)Indications: Graves disease Take 1 Tab by mouth daily. 30 Tab 5 05/21/2021 Active documented as of this encounter (statuses as of 06/23/2021) Active Problems Problem Noted Date Family history of [place] (myocardial infarct ion) 02/18/2021 Hyperthyroidism 02/18/2021 Anxiety 02/18/2021 Graves disease 02/18/2021 Other allergic rhinitis 07/30/2001 Overview: ICD-10 update of inactive term Asthma with severity to be determined Overview: ICD-10 update of inactive term ATTN DEFIC NONHYPERACT 01/24/2000 EXT ASTHMA W-O STAT ASTH Dysmenorrhea documented as of this encounter (statuses as of 06/23/2021) Resolved Problems Problem Noted Date Resolved Date [...] as of this encounter (statuses as of 06/23/2021) Immunizations Name Administration Dates Next Due DT [...] encounter Miscellaneous Notes * Telephone Encounter - Francis Clark CRNP - 06/23/2021 1:32 PM EDT No outgoing calls were made from our clinic. Please advise if patient has any specific concerns/questions. Thank you. * Telephone Encounter - Maegan Perez OSA - 06/23/2021 1:28 PM EDT Pt states she had a missed call. Wasn't sure if it was her PCP office or the endocrinology office. No documentation in chart for an outbound call. Pt asking for a call back. 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
--- OUTSIDE RECORDS SUMMARY | 2023-08-25 07:41 | External Medical Summary | Summary of Care ---
Author Name Unknown Organization [facility] Address [place] [address] Care Team Providers Care Veneer Jointer Returner Name Role Phone Jethro Stevens DO Primary Care Provider Reason for Visit * Reason Onset Date Comments Advice 06/24/2021 Encounter Details Date Type Department Care Team Description 06/24/2021 Telephone Family Practice [facility] [address] [facility] [place] [address] Jethro Stevens DO [address] [place] [address] [phone] Advice Allergies Active Allergy Reactions Severity Noted Date Comments Pollen 05/29/2013 Peanut Oil 05/29/2013 documented as of this encounter (statuses as of 06/24/2021) Medications Medication Sig Dispensed Refills Start Date [...] 05/18/2021 Active hydrOXYzine HCl 50 MG Oral TabletIndications:Anx iety TAKE ONE TABLET BY MOUTH EVERY 6 HOURS NEEDED FOR ANXIETY 40 Tab 3 05/20/2021 Active methIMAzole 10 MG Oral Tablet (Tapazole)Indications :Graves disease Take 1 Tab by mouth daily. 30 Tab 5 05/21/2021 Active Sulfamethoxazole-Trim ethoprim 800-160 MG Oral Tablet (Bactrim DS)Indications:Infect ion of skin Take 1 Tab by mouth 2 times a day for 10 days. Until gone. 20 Tab 0 06/24/2021 07/04/2021 Active documented as of this encounter (statuses as of 06/24/2021) Active Problems Problem Noted Date Family history of [place] (myocardial infarct ion) 02/18/2021 Hyperthyroidism 02/18/2021 Anxiety 02/18/2021 Graves disease 02/18/2021 Other allergic rhinitis 07/30/2001 Overview: ICD-10 update of inactive term Asthma with severity to be determined Overview: ICD-10 update of inactive term ATTN DEFIC NONHYPERACT 01/24/2000 EXT ASTHMA W-O STAT ASTH Dysmenorrhea documented as of this encounter (statuses as of 06/24/2021) Resolved Problems Problem Noted Date Resolved Date [...] as of this encounter (statuses as of 06/24/2021) Immunizations Name Administration Dates Next Due DT [...] encounter Miscellaneous Notes * Telephone Encounter - Kia Luz LPN - 06/24/2021 11:44 AM EDT Patient aware of all info. * Telephone Encounter - Jethro Stevens DO - 06/24/2021 11:34 AM EDT Would advise starting bactrim antibiotic prior to appointment - placed order to her pharmacy * Telephone Encounter - Darlene Hines OSA - 06/24/2021 10:40 AM EDT Starr has an appointment for tomorrow afternoon but is looking for suggestions to get her throughthe night. For the past 2-3 days she has had bloody pus discharge from her belly button that is painful. documented in this encounter Plan of Treatment Upcoming Encounters Date Type Specialty Care Team Description 06/25/2021 Office Visit Family Medicine Taylor Rivera PA-C [address] [place] [address] [phone] 06/28/2021 Telemedicine Family Medicine Jethro Stevens DO [address] [address] [phone] Health Maintenance Due Date Last Done Comments [...] as of this encounter Visit Diagnoses Diagnosis Infection of skin- Primary Unspecified local infection of skin and subcutaneous tissue documented in this encounter Advance Directives Documents on File Type Date Recorded 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
--- OUTSIDE RECORDS SUMMARY | 2023-08-25 07:41 | External Medical Summary ---
Author Name Unknown Address Unknown Organization [id number] [address] [place] [address] Laboratory Report Ordering Provider Test Date Status MARIO PRINCE 09/16/2021 10:34:38 Final Observation Date Value Abnormality Reference (Units ) Status T4, Free 09/16/2021 10:34:38 0.9 0.9-1.7 (n g/dL) Final Performing Location [facility] - [address] [place] [address]
--- OUTSIDE RECORDS SUMMARY | 2023-08-25 07:41 | External Medical Summary | Summary of Care ---
Author Name Unknown Organization [place] [address] Care Team Providers Care Brand Marketing Manager Name Role Phone Jethro Stevens DO Primary Care Provider Encounter Details Date Type Department Care Team Description 09/14/2021 Telemedicine Nutrition & Weight Management, [place] [address] [place], [place] [id number] Feli Ceballos PA-C [address] [place] [address] Hyperthyroidism*; Obesity, Class II, BMI 35-39.9, isolated (see actual BMI) Allergies Active Allergy Reactions Severity Noted Date Comments Pollen 05/29/2013 Peanut Oil 05/29/2013 documented as of this encounter (statuses as of 09/14/2021) Medications Medication Sig Dispensed Refills Start Date [...] mouth daily. 30 Tab 5 05/21/2021 Active Ozempic (0.25 or 0.5 MG/DOSE) 2 [...] a day. 60 Tab 5 09/08/2021 Active predniSONE 20 MG Oral Tablet (Deltasone)Indicat ions:Viral URI with cough Take 4 tabs daily for 2 days, 3 tabs daily for 2 days, 2 tabs daily for 2 days, 1 tab daily for 2 days 20 Tab 0 08/18/2021 09/14/2021 Discontinued documented as of this encounter (statuses as of 09/14/2021) Active Problems Problem Noted Date Family history of [place] (myocardial infarct ion) 02/18/2021 Hyperthyroidism 02/18/2021 Anxiety 02/18/2021 Graves disease 02/18/2021 Other allergic rhinitis 07/30/2001 Overview: ICD-10 update of inactive term Asthma with severity to be determined Overview: ICD-10 update of inactive term ATTN DEFIC NONHYPERACT 01/24/2000 EXT ASTHMA W-O STAT ASTH Dysmenorrhea documented as of this encounter (statuses as of 09/14/2021) Resolved Problems Problem Noted Date Resolved Date [...] as of this encounter (statuses as of 09/14/2021) Immunizations Name Administration Dates Next Due DT [...] Progress Notes * Feli Ceballos PA-C - 09/14/2021 1:41 PM EDT [facility] NOTE Referring Physician: Jethro Stevens DO Patient location: HOME. I was in a hospital or clinic location. After connecting through [employer],patient was verified with two unique identifiers. 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 Methods to assure confidentiality were taken. Patient acknowledged consent and understanding of pr ivacy and security of the Telemedicine visit. The patient agreed to participate Starr L Eyer is a 36 year old patient with [...] daily and 25 mg twice daily respectively Patient has not noted any change in her appetite or weight She reports that she has started decreasing her carbohydrate intake\ She is more active with it being hunting season She has not had follow-up in regards to her Graves. Her methimazole dose was decreased from 15->10 mg this summer She reports she still has constant sweating and feel sticky. This has been unchanged with increaseddose of Wellbutrin and naltrexone Current Diet: Describes typical diet history/24 hr recall Breakfast: coffee, oatmeal Snacks: - Lunch: packs left overs. Snacks: fruits Dinner: some on the go. 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 30 Tab 5 • Ozempic (0.25 or 0.5 MG/DOSE) 2 [...] 2 times a day. 60 Tab 5 No current facility-administered medications for this [...] Hemoglobin AIC Results: No components found for: [id number] Dyslipidemia: No Lipid Panel Results: GI: No [...] low simple carbs - would encourage journaling - Continue Wellbutrin/naltrexone for now. Interested in trying phentermine . Will need EKG. Will order. hyperthyroid controlled on meds. (E05.90) Hyperthyroidism (primary encounter diagnosis) Plan: Follows with Endocrinology. On Tapazole. (R40.0) Daytime sleepiness Plan: SLEEP MEDICINE REFERRAL OP I spent a total of 22 minutes on 09/14/2021 in review of the patient's record and previously obtained information, in person and appropriate medical visit, discussion and education of plan with patient, placing orders for tests/referral/procedures as medically necessary and documentation of pertinent clinical information in the patient's medical record for their visit today. Case discussed with Dr. He Ceballos PA-C documented in this encounter Plan of Treatment Scheduled Orders Name Type Priority Associated Diagnoses Orde r Schedule TSH Lab Routine Hyperthyroidism Expected: 09/15/2021, Expires: 2 T4, FREE Lab Routine Hyperthyroidism Expected: 09/15/2021, Expires: 2 T3, FREE Lab Routine Hyperthyroidism Expected: 09/15/2021, Expires: 2 EKG EKG Routine Hyperthyroidism Expected: 09/15/2021 (Approximate), Expires: 09/14/2022 Health Maintenance Due Date Last Done Comments [...] without mention of thyrotoxic crisis or storm Obesity, Class II, BMI 35-39.9, isolated (see actual BMI) Morbid obesity documented in this encounter Advance Directives Documents on File Type Date Recorded Patient Transitional Care Liaison Expl 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 Advanced Directive Advanced Directive Advanced Directive Advanced Directive Advanced Directive
--- OUTSIDE RECORDS SUMMARY | 2023-08-25 07:41 | External Medical Summary | Summary of Care ---
Author Name Unknown Organization [facility] Address [place] [address] Care Team Providers Care Systems Program Manager Name Role Phone Geovanni Stevens DO Primary Care Provider Reason for Visit * Reason Comments eRx-Medication Refill Encounter Details Date Type Department Care Team Description 05/19/2021 Refill Family Practice [facility] [address] [place] [address] [facility] Stevens [facility] [address] [facility] [place] [address] [phone] Anxiety Allergies Active Allergy Reactions Severity Noted Date Comments Pollen 05/29/2013 Peanut Oil 05/29/2013 documented as of this encounter (statuses as of 05/20/2021) Medications Medication Sig Dispensed Refills Start Date End Date Status ALBUTEROL SULFATE HFA 108 (90 BASE) MCG/ACT IN AERS as needed 0 Active IBUPROFEN 600 MG PO TABS None Entered 0 Active SUMATRIPTAN SUCCINATE 50 MG PO TABSIndications:Mi graine with intractable migraine 1 TABLET 1 TIME ONLY,REPEAT AFTER 2 HR NEEDED 30 Tab 3 11/12/2013 Active methIMAzole 10 MG Oral Tablet (Tapazole)Indicati ons:Graves disease Take 1.5 Tabs by mouth daily. 45 Tab 5 12/25/2020 Active Propranolol HCl 20 MG Oral Tablet (Inderal)Indicatio ns:Graves disease,Hyperthyro idism Take 1 Tab by mouth 2 times a day. 90 Tab 5 05/18/2021 Active hydrOXYzine HCl 50 MG Oral TabletIndications: Anxiety TAKE ONE TABLET BY MOUTH EVERY 6 HOURS NEEDED FOR ANXIETY 40 Tab 3 05/20/2021 Active hydrOXYzine HCl 50 MG Oral TabletIndications: Anxiety Take 1 Tab by mouth every 6 hours as needed for Anxiety. 40 Tab 2 02/18/2021 05/20/2021 Discontinued documented as of this encounter (statuses as of 05/20/2021) Active Problems Problem Noted Date Family history of [place] (myocardial infarct ion) 02/18/2021 Hyperthyroidism 02/18/2021 Anxiety 02/18/2021 Graves disease 02/18/2021 Other allergic rhinitis 07/30/2001 Overview: ICD-10 update of inactive term Asthma with severity to be determined Overview: ICD-10 update of inactive term ATTN DEFIC NONHYPERACT 01/24/2000 EXT ASTHMA W-O STAT ASTH Dysmenorrhea documented as of this encounter (statuses as of 05/20/2021) Resolved Problems Problem Noted Date Resolved Date [...] as of this encounter (statuses as of 05/20/2021) Immunizations Name Administration Dates Next Due DT [...] Telephone Encounter - Geovanni Stevens DO - 05/20/2021 11:06 AM EDT Signed Prescriptions: Disp Refills hydrOXYzine HCl 50 MG Oral Tablet 40 Tab 3 Sig: TAKE ONE TABLET BY MOUTH EVERY 6 HOURS NEEDED FOR ANXIETY Authorizing Provider: GEOVANNI STEVENS * Telephone Encounter - Peewee Ibrahim [facility] - 05/20/2021 7:50 AM EDT Pending Prescriptions: Disp Refills hydrOXYzine HCl 50 MG Oral Tablet 40 Tab 3 Sig: TAKE ONE TABLET BY MOUTH EVERY 6 HOURS NEEDED FOR ANXIETY * Telephone Encounter - Peewee Ibrahim [facility] - 05/20/2021 7:50 AM EDT Refill pharmacists currently not authorized to approve refills for this class of medication per refill protocol. Please approve if appropriate. Pending Prescriptions: Disp Refills hydrOXYzine HCl 50 MG Oral Tablet 40 Tab 3 Sig: TAKE ONE TABLET BY MOUTH EVERY 6 HOURS NEEDED FOR ANXIETY Last Office/Telemedicine Visit: 02/18/2021 Next Office Visit: No Future Appointments If no future appointments scheduled, and last appointment is greater than a year ago, please schedule patient for a follow-up appointment Last date the medication was ordered: 02/18/2021 Pharmacy: [facility] [address] [place] [address] [address] [facility] Is this request for a controlled substance? no Patient Phone Numbers Labs: Lab Results Component Value Date/Time CREAT 0.63 09/23/2020 CREAT 0.63 09/23/2020 POTASSIUM 4.3 09/23/2020 POTASSIUM 4.3 09/23/2020 TSH 1.40 05/14/2021 03:22 PM TSH 0.01 (A) 01/20/2021 ALT 51 (H) 03/23/2021 07:28 AM ALT 25 09/23/2020 HGBA1C 5.5 03/23/2021 07:28 AM HGBA1C 5.2 09/23/2020 HGBA1C 5.2 09/23/2020 Thank You, Peewee Ibrahim, Pharm-D Clinical Pharmacist Telepharmacy 05/20/2021, 7:50 AM documented in this encounter Plan of Treatment Upcoming Encounters Date Type Specialty Care Team Description 08/04/2021 Telemedicine Endocrinology Francis Clark CRNP [address] [place] [address] Health Maintenance Due Date Last [...] Documents on File Type Date Recorded 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
--- OUTSIDE RECORDS SUMMARY | 2023-08-25 07:41 | External Medical Summary ---
Author Name Unknown Address Unknown Organization K01:[facility] [address] [place] [address] Laboratory Report Ordering Provider Test Date Status MAGALY ESCAMILLA 06/19/2021 08:22:12 Final Observation Date Value Abnormality Reference (Units ) Status HbA1C 06/19/2021 08:22:12 5.2 4.0-5.6 (% ) Final Performing Location [facility] - [address] [place] [address]
--- OUTSIDE RECORDS SUMMARY | 2023-08-25 07:41 | External Medical Summary | Summary of Care ---
Author Name Unknown Organization [facility] Address [place] [address] Care Team Providers Care Dialysis Tech Name Role Phone Jethro Stevens DO Primary Care Provider Reason for Visit * Reason Comments Acute mainly sluggish,fati gued, and not losing weight--did have blood work done and were talking about metformin( and )becaue of insulin levels---really wants to start feeling better Encounter Details Date Type Department Care Team Description 05/18/2021 Telemedicine General Internal Medicine [facility] [address] [place] [address] Idalia Mobley MD [address] [place] [address] [phone] Graves disease*; Hyperthyroidism; Malaise and fatigue Allergies Active Allergy Reactions Severity Noted Date Comments Pollen 05/29/2013 Peanut Oil 05/29/2013 documented as of this encounter (statuses as of 05/18/2021) Medications Medication Sig Dispensed Refills Start Date [...] mouth daily. 45 Tab 5 12/25/2020 Active hydrOXYzine HCl 50 MG Oral TabletIndications: Anxiety Take 1 Tab by mouth every 6 hours as needed for Anxiety. 40 Tab 2 02/18/2021 Active Propranolol HCl 20 MG Oral Tablet (Inderal)Indicatio ns:Graves disease,Hyperthyro idism Take 1 Tab by mouth 2 times a day. 90 Tab 5 05/18/2021 Active Propranolol HCl 20 MG Oral Tablet (Inderal)Indicatio ns:Graves disease Take 1 Tab by mouth 3 times a day. 90 Tab 5 02/18/2021 05/18/2021 Discontinued Amoxicillin 500 MG Oral Capsule (Amoxil) Take 500 mg by mouth 3 times a day. 0 04/14/2021 05/18/2021 Discontinued documented as of this encounter (statuses as of 05/18/2021) Active Problems Problem Noted Date Family history of [place] (myocardial infarct ion) 02/18/2021 Hyperthyroidism 02/18/2021 Anxiety 02/18/2021 Graves disease 02/18/2021 Other allergic rhinitis 07/30/2001 Overview: ICD-10 update of inactive term Asthma with severity to be determined Overview: ICD-10 update of inactive term ATTN DEFIC NONHYPERACT 01/24/2000 EXT ASTHMA W-O STAT ASTH Dysmenorrhea documented as of this encounter (statuses as of 05/18/2021) Resolved Problems Problem Noted Date Resolved Date [...] as of this encounter (statuses as of 05/18/2021) Immunizations Name Administration Dates Next Due DT [...] Progress Notes * Idalia Mobley MD - 05/18/2021 3:31 PM EDT SUBJECTIVE: Starr Dove is a 35 year old female. Chief Complaint Patient presents with • Acute mainly sluggish,fatigued, and not losing weight--did have blood work done and were talking about metformin( and )becaue of insulin levels---really wants to start feeling better I was in a hospital or clinic location. After connecting through televideo, patient was verified with two unique identifiers. Patient (or authorized legal labor relations representative) was then informed that this was a Telemedicine visit and being conducted confidentially over secure lines. Methods to assure confidentiality were taken. Patient acknowledged consent and understanding of privacy and security of the Telemedicine visit. The patient agreed to participate. HPI: This clinic encounter was completed utilizing remote or virtual means secondary to the COVID-19 outbreak. BP Readings from Last 4 Encounters: 04/20/21 102/68 02/18/21 108/72 12/25/20 112/78 09/29/20 115/80 Wt Readings from Last 5 Encounters: 04/20/21 95.6 kg (210 lb 12.8 oz) 02/18/21 94.4 kg (208 lb 3 oz) 12/25/20 93 kg (205 lb 2 oz) 09/29/20 91.2 kg (201 lb) 09/23/20 93.2 kg (205 lb 6 oz) Patient presents today for acute evaluation for symptoms of fatigue/sluggishness. Diagnosed with hyperthyroidism dec currently being followed by Endocrinology in [place], on methimazole 15 mg daily, propranolol 20 mg 3 times a day. She is concerned that she is not able to lose weight and last insulin was slightly high. Reviewed recent labs and Endocrinology notes. They do have plan to recheck A1c, insulin, FBS before next appointment in July. Denies any excessive bleeding. There is an order for a ferritin and iron saturation from the sleep clinic advised to have it with her next labs She works in the [employer] department at the [employer]. Tries to stay hydrated. No history of tick bites. No fever or chills. No URI symptoms. Component Latest Ref Rng & Units 03/23/2021 05/14/2021 T3, Free 2.5 - 4.3 pg/mL 3.3 2.8 T4, Free 0.9 - 1.7 ng/dL 1.0 1.0 TSH 0.27 - 4.20 uIU/mL 0.03 (L) 1.40 TSH Results: Lab Results Component Value Date/Time TSH - [facility] 1.40 05/14/2021 03:22 PM TSH - [facility] 0.03 (L) 03/23/2021 07:28 AM TSH - [facility] 0.01 (A) 01/20/2021 TSH - [facility] <0.01 (A) 12/16/2020 TSH - [facility] 0.01 (A) 12/11/2020 Hemoglobin Results: Lab Results Component Value Date/Time HGB - [facility] 13.0 03/23/2021 07:28 AM HGB - [facility] 11.8 (L) 07/24/2013 11:01 AM HGB - [facility] 12.9 05/11/1999 03:15 PM Hemoglobin AIC Results: Lab Results Component Value Date/Time HEMOGLOBIN A1C - [facility] 5.5 03/23/2021 07:28 AM Lipid Panel Results: Immunization History Administered Date(s) Administered • Allergy [...] 08/08/2013 • TD - Tetanus/Diptheria (ADULT) 07/04/1997 Patient Active Problem List Diagnosis Code • Asthma with severity to be determined J45.909 • ATTN DEFIC NONHYPERACT F98.8 • Other allergic rhinitis J30.89 • EXT ASTHMA W-O STAT ASTH J45.909 • Dysmenorrhea N94.6 • Family history of VT (myocardial infarction) Z82.49 • Hyperthyroidism E05.90 • Anxiety F41.9 • Graves disease E05.00 Current Outpatient Medications Medication Sig Dispense Refill • hydrOXYzine HCl 50 MG Oral Tablet Take 1 Tab by mouth every 6 hours as needed for Anxiety. 40 Tab 2 • Propranolol HCl 20 MG Oral Tablet (Inderal) Take 1 Tab by mouth 3 times a day. 90 Tab 5 • methIMAzole 10 MG Oral Tablet (Tapazole) Take 1.5 Tabs by mouth daily. 45 Tab 5 SUMATRIPTAN SUCCINATE 50 MG PO TABS 1 TABLET 1 TIME ONLY,REPEAT AFTER 2 HR NEEDED 30 Tab 3 IBUPROFEN 600 MG PO TABS None Entered ALBUTEROL SULFATE HFA 108 (90 BASE) MCG/ACT IN AERS as needed Outpatient Medications Prior to Visit Medication Sig Dispense Refill • hydrOXYzine HCl 50 MG Oral Tablet Take 1 Tab by mouth every 6 hours as needed for Anxiety. 40 Tab 2 • Propranolol HCl 20 MG Oral Tablet (Inderal) Take 1 Tab by mouth 3 times a day. 90 Tab 5 • methIMAzole 10 MG Oral Tablet (Tapazole) Take 1.5 Tabs by mouth daily. 45 Tab 5 • [DISCONTINUED] Amoxicillin 500 MG Oral Capsule (Amoxil) Take 500 mg by mouth 3 times a day. • SUMATRIPTAN SUCCINATE 50 MG PO TABS 1 TABLET 1 TIME ONLY,REPEAT AFTER 2 HR NEEDED 30 Tab 3 • IBUPROFEN 600 MG PO TABS None Entered • ALBUTEROL SULFATE HFA 108 (90 BASE) MCG/ACT IN AERS as needed No facility-administered medications prior to visit. Last reviewed on 05/18/2021 3:22 PM by Thea Hooker LPN Review of patient's allergies indicates: Allergen Reactions • Environmental [Pollen] • Peanut Oil OBJECTIVE: No vitals were obtained for this appointment PHYSICAL EXAM: General: alert, healthy, no distress Head-normocephalic Eyes-sclera clear. OP- Mm Moist Neck-supple Lungs: able to take deep breaths Neuro-alert with fluent speech ASSESSMENT/PLAN: Graves disease (Primary) - Propranolol HCl 20 MG Oral Tablet (Inderal); Take 1 Tab by mouth 2 times a day. Hyperthyroidism - Propranolol HCl 20 MG Oral Tablet (Inderal); Take 1 Tab by mouth 2 times a day. Malaise and fatigue --dec dose BB since tsh and free t4/3 nml now Follow-up: Return if symptoms worsen or fail to improve. | Check-out note: Arnaud f/u PCP 1 month (This note was completed using the dictation [...] with plan of care. Idalia Mobley MD 05/18/2021 * Thea Hooker LPN - 05/18/2021 3:22 PM EDT Chief Complaint Patient presents with • Acute mainly sluggish,fatigued, and not losing weight--did have blood work done and were talking about metformin( and )becaue of insulin levels---really wants to start feeling better documented in this encounter Plan of Treatment Upcoming Encounters Date Type Specialty Care Team Description 08/04/2021 Telemedicine Endocrinology Francis Clark CRNP [address] [place] [address] [phone] Health Maintenance Due Date Last Done Comments Pneumococcal Vaccine: Pediatrics (0 to 5 Years) and At-Risk Patients (6 to 64 Years) (1 of 2 - PPSV23) 1991 DTaP,Tdap,and Td Vaccines (6 - Tdap) 1996 07/04/1997, 01/24/1991, 04/03/1987, Additional history exists COVID-19 Vaccine (1) 1997 PAP SMEAR-EVERY 3 YRS,AGES 21-65 2006 Influenza Vaccine (FLU shot) Completed 09/23/2020, 08/08/2013 MENINGOCOCCAL (MENACTRA/MENVEO) Aged Out No longer eligible based on patient's age to complete this topic documented as of this encounter Implants Not on filedocumented as of this encounter Visit Diagnoses Diagnosis Graves disease- Primary Toxic diffuse goiter without mention of thyrotoxic crisis or storm Hyperthyroidism Thyrotoxicosis without mention of goiter or other cause, without mention of thyrotoxic crisis or storm Malaise and fatigue Other malaise and fatigue documented in this encounter Advance Directives Documents on File Type Date Recorded Patient Public Health Aides Teacher Expl 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 Advanced Directive Advanced Directive Advanced Directive Advanced Directive Advanced Directive Advanced Directive Advanced Directive"
--- OUTSIDE RECORDS SUMMARY | 2023-08-25 07:41 | External Medical Summary | Summary of Care ---
Author Name Unknown Organization [facility] Address [place] [address] Care Team Providers Care Continuity Editor Name Role Phone Jethro Stevens DO Primary Care Provider Reason for Referral * Evaluate & Treat - Unlimited Visits (Within 10 days (routine)) Status Reason Specialty Diagnoses / Procedures Referred By Contact Referred To Contact Pending Review Specialty Services Required GI NUTRITION/IM / Gastroenterology Diagnoses Obesity, Class II, BMI 35-39.9, isolated (see actual BMI) Jethro Stevens DO [address] [place] [address] Question Answer Referral Priority Within 10 days (routine) For what condition is the patient being seen? Obesity Electronically signed by Jethro Stevens DO at Reason for Visit * Reason Comments Follow Up Encounter Details Date Type Department Care Team Description 06/28/2021 Telemedicine Family Practice [facility] [address] [place] [address] Jethro Stevens DO [address] [place] [address] [phone] Obesity, Class II, BMI 35-39.9, isolated (see actual BMI)*; Graves disease; Hyperthyroidism; Dysmenorrhea Allergies Active Allergy Reactions Severity Noted Date Comments Pollen 05/29/2013 Peanut Oil 05/29/2013 documented as of this encounter (statuses as of 06/28/2021) Medications Medication Sig Dispensed Refills Start Date [...] gone. 20 Tab 0 06/24/2021 07/04/2021 Active Naltrexone HCl 50 MG Oral Tablet (Revia)Indications:Ob esity, Class II, BMI 35-39.9, isolated (see actual BMI) Take 0.5 Tabs by mouth daily. 45 Tab 3 06/28/2021 Active buPROPion HCl ER (XL) 150 MG Oral Tablet Extended Release 24 Hour (Wellbutrin XL)Indications:Obesit y, Class II, BMI 35-39.9, isolated (see actual BMI) Take 1 Tab by mouth daily. 90 Tab 5 06/28/2021 Active documented as of this encounter (statuses as of 06/28/2021) Active Problems Problem Noted Date Family history of AK (myocardial infarct ion) 02/18/2021 Hyperthyroidism 02/18/2021 Anxiety 02/18/2021 Graves disease 02/18/2021 Other allergic rhinitis 07/30/2001 Overview: ICD-10 update of inactive term Asthma with severity to be determined Overview: ICD-10 update of inactive term ATTN DEFIC NONHYPERACT 01/24/2000 EXT ASTHMA W-O STAT ASTH Dysmenorrhea documented as of this encounter (statuses as of 06/28/2021) Resolved Problems Problem Noted Date Resolved Date [...] as of this encounter (statuses as of 06/28/2021) Immunizations Name Administration Dates Next Due DT [...] as of this encounter Progress Notes * Jethro Stevens DO - 06/28/2021 7:41 AM EDT There are no exam notes on file for this visit. Patient location: HOME. I was in a hospital or clinic location. After connecting through televideo,patient was verified with two unique identifiers. 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 Methods to assure confidentiality were taken. Patient acknowledged consent and understanding of pr ivacy and security of the Telemedicine visit. The patient agreed to participate. ASSESSMENT/PLAN: 1. Obesity, Class II, BMI 35-39.9, isolated (see actual BMI) Will try "contrave"-like combination as she attempts to reduce caloric intake and will get f/u withGI weight loss clinic as she wishes to have further conversation regarding dietary planing, reduction of weight. - Naltrexone HCl 50 MG Oral Tablet (Revia); Take 0.5 Tabs by mouth daily. Dispense: 45 Tab; Refill:3 - buPROPion HCl ER (XL) 150 MG Oral Tablet Extended Release 24 Hour (Wellbutrin XL); Take 1 Tab by mouth daily. Dispense: 90 Tab; Refill: 5 - GI NUTRITION REFERRAL OP 2. Graves diseas 3. Hyperthyroidism 4. Dysmenorrhea HPI: Starr Dove is a 35 year old female who: Presents with difficulties losing Weight and ongoing feelings of malaise ROS: See HPI for pertinent ROS PHYSICAL EXAMINATION: There were no vitals taken for this visit. GENERAL: alert, healthy, no distress, well nourished and well developed EYES: PERRL, EOMI, Conjunctiva are pink and non-injected, sclera clear Results for orders placed or performed in visit on 06/19/21 HEMOGLOBIN A1C Result Value Ref Range Hemoglobin A1C 5.2 4.0 - 5.6 % Estimated Average Glucose 103 <126 mg/dL GLUCOSE, FASTING PLASMA Result Value Ref Range Fasting Plasma Glucose 98 70 - 99 mg/dL Patient Active Problem List Diagnosis Code • Asthma with severity to be determined J45.909 • ATTN DEFIC NONHYPERACT F98.8 • Other allergic rhinitis J30.89 • EXT ASTHMA W-O STAT ASTH J45.909 • Dysmenorrhea N94.6 • Family history of AK (myocardial infarction) Z82.49 • Hyperthyroidism E05.90 • Anxiety F41.9 • Graves disease E05.00 Past Medical History: Diagnosis Date • Allergic rhinitis due to other allergen immunotherapy for 2 years • Asthma, allergic exercise component • Attention deficit disorder without hyperactivity Past Surgical History: Procedure Laterality Date • DENTAL SURGERY PROCEDURE NEC 1 wisdom tooth • INCISION OF EARDRUM as child Myringotomy/with tubes REMOVE TONSILS & ADENOIDS, UNDER 12 as child Tonsillectomy/Adenoids,<12 Y/O Current Outpatient Medications Medication Sig Dispense Refill • buPROPion HCl ER (XL) 150 MG Oral Tablet Extended Release 24 Hour (Wellbutrin XL) Take 1 Tab bymouth daily. 90 Tab 5 • Naltrexone HCl 50 MG Oral Tablet (Revia) Take 0.5 Tabs by mouth daily. 45 Tab 3 Sulfamethoxazole-Trimethoprim 800-160 MG Oral Tablet (Bactrim DS) Take 1 Tab by mouth 2 times a dayfor 10 days. Until gone. 20 Tab 0 methIMAzole 10 MG Oral Tablet (Tapazole) Take 1 Tab by mouth daily. 30 Tab 5 hydrOXYzine HCl 50 MG Oral Tablet TAKE ONE TABLET BY MOUTH EVERY 6 HOURS NEEDED FOR ANXIETY 40 Tab 3 Propranolol HCl 20 MG Oral Tablet (Inderal) Take 1 Tab by mouth 2 times a day. 90 Tab 5 SUMATRIPTAN SUCCINATE 50 MG PO TABS 1 TABLET 1 TIME ONLY,REPEAT AFTER 2 HR NEEDED 30 Tab 3 IBUPROFEN 600 MG PO TABS None Entered ALBUTEROL SULFATE HFA 108 (90 BASE) MCG/ACT IN AERS as needed Review of patient's allergies indicates: Allergen Reactions • Environmental [Pollen] • Peanut Oil Jethro Stevens DO Family [address] [address] I spent 35-45 minutes reviewing this patients chart, face to face with the patient, reviewing labs/results/imaging, and documenting their care. (This note was completed using the dictation program Fluency Direct. As such, there may be misspellings, word substitutions, or other variations that should not change the essence of the clinical content of this encounter note.If there is need for further clarification, please direct questions to the provider listed above.) documented in this encounter Plan of Treatment Scheduled Referrals Name Type Priority Associated Diagnoses Orde r Schedule GI NUTRITION REFERRAL OP Referral Within 10 days (routine) Obesity, Class II, BMI 35-39.9, isolated (see actual BMI) Ordered: 06/28/2021 Health Maintenance Due Date Last Done Comments [...] isolated (see actual BMI)- Primary Morbid obesity Graves disease Toxic diffuse goiter without mention of thyrotoxic crisis or storm Hyperthyroidism Thyrotoxicosis without mention of goiter or other cause, without mention of thyrotoxic crisis or storm Dysmenorrhea documented in this encounter Advance Directives Documents on File Type Date Recorded 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
--- OUTSIDE RECORDS SUMMARY | 2023-08-25 07:41 | External Medical Summary ---
Author Name Unknown Address Unknown Organization [id number]:[facility] [place] [address] Laboratory Report Ordering Provider Test Date Status MAGALY ESCAMILLA 06/19/2021 08:22:13 Final Observation Date Value Abnormality Reference (Units ) Status Fasting glucose [Moles/volume] in Serum or Plasma 06/19/2021 08:22:13 98 70-99 (mg/dL) Final Performing Location [facility] [place] [address]
--- OUTSIDE RECORDS SUMMARY | 2023-08-25 07:41 | External Medical Summary ---
Author Name Unknown Address Unknown Organization [id number]:[facility] [place] [address] [place] [address] [place] [address] Laboratory Report Ordering Provider Test Date Status MARIO PRINCE 09/16/2021 10:34:38 Final Observation Date Value Abnormality Reference (Units ) Status TSH 09/16/2021 10:34:38 1.65 0.27-4.20 (uIU/mL) Final Performing Location [facility] - [address] [place] [address]
--- OUTSIDE RECORDS SUMMARY | 2023-08-25 07:41 | External Medical Summary ---
Author Name Unknown Address Unknown Organization [id number]:[facility] - [address] [place] [address] Laboratory Report Ordering Provider Test Date Status MAGALY ESCAMILLA 05/14/2021 15:22:56 Final Observation Date Value Abnormality Reference (Units ) Status T4, Free 05/14/2021 15:22:56 1.0 0.9-1.7 (n g/dL) Final Performing Location [facility] - [address] [place] [address]
--- OUTSIDE RECORDS SUMMARY | 2023-08-25 07:41 | External Medical Summary ---
Author Name Unknown Address Unknown Organization [id number]:[facility] - [address] [place] [address] Laboratory Report Ordering Provider Test Date Status ANDIMAGALY 05/14/2021 15:22:56 Final Observation Date Value Abnormality Reference (Units ) Status T3, Free 05/14/2021 15:22:56 2.8 2.5-4.3 (p g/mL) Final Performing Location [facility] - [address] [place] [address]
--- OUTSIDE RECORDS SUMMARY | 2023-08-25 07:41 | External Medical Summary | Summary of Care ---
Author Name Unknown Organization [place] [address] Care Team Providers Care Compliance Advisor Name Role Phone Jethro Stevens DO Primary Care Provider Reason for Visit * Reason Onset Date Comments COVID-19 Screening 08/16/2021 Encounter Details Date Type Department Care Team Description 08/16/2021 Pandemic Screening COVID19 Screening, [address] [place] [id number] [facility] Covid19 Screening [address] [place] [address] Suspected 2019 novel coronavirus infection* Allergies Active Allergy Reactions Severity Noted Date Comments Pollen 05/29/2013 Peanut Oil 05/29/2013 documented as of this encounter (statuses as of 08/16/2021) Medications Medication Sig Dispensed Refills Start Date [...] Oral Tablet Extended Release 24 Hour (Wellbutrin XL)Indications:Obesity , Class II, BMI 35-39.9, isolated (see actual BMI) Take 1 in am. and 1 around 3:00 p.m. 180 Tab 5 08/06/2021 Active Naltrexone HCl 50 MG Oral Tablet (Revia)Indications:Obe sity, Class II, BMI 35-39.9, isolated (see actual BMI) Take 0.5 Tabs by mouth 2 times a day. 90 Tab 0 08/06/2021 Active documented as of this encounter (statuses as of 08/16/2021) Active Problems Problem Noted Date Family history of [place] (myocardial infarct ion) 02/18/2021 Hyperthyroidism 02/18/2021 Anxiety 02/18/2021 Graves disease 02/18/2021 Other allergic rhinitis 07/30/2001 Overview: ICD-10 update of inactive term Asthma with severity to be determined Overview: ICD-10 update of inactive term ATTN DEFIC NONHYPERACT 01/24/2000 EXT ASTHMA W-O STAT ASTH Dysmenorrhea documented as of this encounter (statuses as of 08/16/2021) Resolved Problems Problem Noted Date Resolved Date [...] as of this encounter (statuses as of 08/16/2021) Immunizations Name Administration Dates Next Due DT [...] as of this encounter Progress Notes * Dai Stevens CCMA - 08/16/2021 2:53 PM EDT Images from the original note were not included. Pt in no acute distress. Pt speaking and ambulating with no issue. Covid CURBSTONE SETTER swab performed. Pt instructed to self isolate until results are back. ER if sx worsen. Pt given handouts upon checking out. Travel Screening Question Response In the last month, have you been in contact with someone who was confirmed or suspected to have Coronavirus / COVID-19? Have you had a COVID-19 viral test in the last 14 days? Do you have any of the following new or worsening symptoms? Have you traveled internationally in the last month? No Travel History Travel since 07/16/21 No documented travel since 07/16/21 COVID-19 Suspected based on symptoms and exposure Testing ordered COVID 19 Testing documented in this encounter Plan of Treatment Upcoming Encounters Date Type Specialty Care Team Description 09/14/2021 Telemedicine Gastroenterology Feli Ceballos PA-C [address] [place] [facility] [place] [address] Scheduled Orders Name Type Priority Associated Diagnoses Orde r Schedule SARS-COV-2 (COVID-19), NAAT Lab Routine Suspected 2019 novel coronavirus infection Ordered: 08/16/2021 Health Maintenance Due Date Last Done Comments [...] Documents on File Type Date Recorded 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
--- OUTSIDE RECORDS SUMMARY | 2023-08-25 07:41 | External Medical Summary | Summary of Care ---
Author Name Unknown Organization [facility] Address [place] [address] Care Team Providers Care Outboard Motor Inspector Name Role Phone Jethro Stevens DO Primary Care Provider Reason for Visit * Reason Onset Date Comments FYI 05/14/[address] Stevens kn ow she is still feeling tired and sluggish Encounter Details Date Type Department Care Team Description 05/14/2021 Telephone Family Practice [facility] [address] [place] [address] Jethro Stevens DO [address] [place] [address] [phone] FYI (Let Dr. Stevens know she is still feeli... Allergies Active Allergy Reactions Severity Noted Date [...] 11/12/2013 Active methIMAzole 10 MG Oral Tablet (Tapazole)Indications: Graves disease Take 1.5 Tabs by mouth daily. 45 Tab 5 12/25/2020 Active hydrOXYzine HCl 50 MG Oral TabletIndications:Anxi ety Take 1 Tab by mouth every 6 hours as needed for Anxiety. 40 Tab 2 02/18/2021 Active Propranolol HCl 20 MG Oral Tablet (Inderal)Indications:G raves disease Take 1 Tab by mouth 3 times a day. 90 Tab 5 02/18/2021 Active Amoxicillin 500 MG Oral Capsule (Amoxil) Take 500 mg by mouth 3 times a day. 0 04/14/2021 Active documented as of this encounter (statuses [...] encounter Miscellaneous Notes * Telephone Encounter - Linda Stevens OSA - 05/18/2021 7:35 AM EDT appt scheduled for today with Dr Mobley * Telephone Encounter - Jethro Stevens DO - 05/17/2021 4:42 PM EDT Sure - start with a video visit, that's fine * Telephone Encounter - Jossy Stevens OSA - 05/17/2021 9:47 AM EDT Patient has been notified of the message. Patient is asking for an appointment after 4:30pm any dayof the week or she is off on 05/20. She has been made aware there are no available openings after 4:30 or any times on . She says she does not have any extra time to take off work and says if it is not possible to get an in office visit after 4:30pm, can she do a video visit instead at anytime. Please advise * Telephone Encounter - Linda Stevens OSA - 05/17/2021 9:05 AM EDT LM for pt to call back to schedule with Dr Stevens or AP * Telephone Encounter - Jethro Stevens DO - 05/17/2021 8:15 AM EDT Please bring patient in for visit with myself or AP Recent labs re: thyroid were reassuring May be mood related Make 40 min appt please so mental health side can be addressed as well * Telephone Encounter - Keisha Pacheco OSA - 05/14/2021 12:29 PM EDT Patient wanted to let Dr. Stevens know she is still feeling tired and sluggish. Starr Eyer [phone] documented in this encounter Plan of Treatment Upcoming Encounters Date Type Specialty Care Team Description 05/18/2021 Telemedicine Internal Medicine Idalia Mobley MD [address] [place] [address] [phone] 08/04/2021 Telemedicine Endocrinology Francis Clark CRNP [address] [place] [address] Health Maintenance Due Date Last [...] Documents on File Type Date Recorded Patient Clay Grinder Expl 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 Advanced Directive Advanced Directive Advanced Directive Advanced Directive Advanced Directive Advanced Directive Advanced Directive
--- OUTSIDE RECORDS SUMMARY | 2023-08-25 07:41 | External Medical Summary | Summary of Care ---
Author Name Unknown Organization [place] [address] Care Team Providers Care Shoe Repairer Apprentice Name Role Phone Jethro Stevens DO Primary Care Provider Reason for Visit * Reason Onset Date Comments Test Results 05/21/2021 Encounter Details Date Type Department Care Team Description 05/21/2021 Telephone Endocrinology, [place] [address] [place] [address] Francis Clark CRNP [address] [place] [address] Test Results Allergies Active Allergy [...] Miscellaneous Notes * Telephone Encounter - Jane Raza LPN - 05/26/2021 8:14 AM EDT Patient had called clinic and left message on 05/25/21. Attempted to call patient at this time, with no answer. LVMM asking patient to return call to clinic. Jane Raza LPN Endocrinology [facility] * Telephone Encounter - Francis Clark [...] Documents on File Type Date Recorded Patient Territory Sales Manager Medical Expl 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 Advanced Directive Advanced Directive Advanced Directive Advanced Directive Advanced Directive Advanced Directive Advanced Directive
--- OUTSIDE RECORDS SUMMARY | 2023-08-25 07:41 | External Medical Summary | Summary of Care ---
Author Name Unknown Organization [facility] Address [place] [address] Care Team Providers Care Print Designer Name Role Phone Jethro Stevens DO Primary Care Provider Reason for Visit * Reason Onset Date Comments COVID-19 Screening 08/18/2021 Encounter Details Date Type Department Care Team Description 08/18/2021 Telephone COVID19 Screening [facility] [address] [place] [id number], Automated Provider COVID-19 Screening Allergies Active Allergy Reactions Severity Noted Date Comments Pollen 05/29/2013 Peanut Oil 05/29/2013 documented as of this encounter (statuses as of 08/19/2021) Medications Medication Sig Dispensed Refills Start Date [...] a day. 90 Tab 0 08/06/2021 Active predniSONE 20 MG Oral Tablet (Deltasone)Indications :Viral URI with cough Take 4 tabs daily for 2 days, 3 tabs daily for 2 days, 2 tabs daily for 2 days, 1 tab daily for 2 days 20 Tab 0 08/18/2021 Active documented as of this encounter (statuses as of 08/19/2021) Active Problems Problem Noted Date Family history of [place] (myocardial infarct ion) 02/18/2021 Hyperthyroidism 02/18/2021 Anxiety 02/18/2021 Graves disease 02/18/2021 Other allergic rhinitis 07/30/2001 Overview: ICD-10 update of inactive term Asthma with severity to be determined Overview: ICD-10 update of inactive term ATTN DEFIC NONHYPERACT 01/24/2000 EXT ASTHMA W-O STAT ASTH Dysmenorrhea documented as of this encounter (statuses as of 08/19/2021) Resolved Problems Problem Noted Date Resolved Date [...] as of this encounter (statuses as of 08/19/2021) Immunizations Name Administration Dates Next Due DT [...] encounter Miscellaneous Notes * Telephone Encounter - Yane Aragon - 08/19/2021 1:29 PM EDT Outreach Attempts Aug 18 2021 1:19PM - Fail to reach patient IVR Message: Unsuccessful contact, no education provided documented in this encounter Plan of Treatment Upcoming Encounters Date Type Specialty Care Team Description 09/14/2021 Telemedicine Gastroenterology Feli Ceballos PA-C [address] [facility] [place] [address] Health Maintenance Due Date Last Done [...] Documents on File Type Date Recorded Patient Furniture Sprayer Expl 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 Advanced Directive Advanced Directive Advanced Directive Advanced Directive Advanced Directive
--- OUTSIDE RECORDS SUMMARY | 2023-08-25 07:41 | External Medical Summary ---
Author Name Unknown Address Unknown Organization [facility] - [address] [place] [address] Laboratory Report Ordering Provider Test Date Status MAGALY ESCAMILLA 05/14/2021 15:22:56 Final Observation Date Value Abnormality Reference (Units ) Status TSH 05/14/2021 15:22:56 1.40 0.27-4.20 (uIU/mL) Final Performing Location [facility] [address] [place] [address]
--- OUTSIDE RECORDS SUMMARY | 2023-08-25 07:41 | External Medical Summary ---
Author Name Unknown Address Unknown Organization [facility] - [address] [place] [address] Laboratory Report Ordering Provider Test Date Status MARIO PRINCE 09/16/2021 10:34:38 Final Observation Date Value Abnormality Reference (Units ) Status T3, Free 09/16/2021 10:34:38 3.0 2.5-4.3 (p g/mL) Final Performing Location [facility] - [address] [place] [address]
--- OUTSIDE RECORDS SUMMARY | 2023-08-25 07:41 | External Medical Summary | Summary of Care ---
Author Name Unknown Organization [facility] Address [facility] [place] [address] Care Team Providers Care Security Infrastructure Engineer Name Role Phone Jethro Stevens DO Primary Care Provider Reason for Visit * Reason Comments eRx-Medication Refill Encounter Details Date Type Department Care Team Description 09/06/2021 Refill Family Practice [facility] [address] [place] [address] Jethro Stevens DO [address] [place] [id number] Graves disease; Hyperthyroidism Allergies Active Allergy Reactions Severity Noted Date Comments Pollen 05/29/2013 Peanut Oil 05/29/2013 documented as of this encounter (statuses as of 09/08/2021) Medications Medication Sig Dispensed Refills Start Date [...] 08/06/2021 Active predniSONE 20 MG Oral Tablet (Deltasone)Indicat ions:Viral URI with cough Take 4 tabs daily for 2 days, 3 tabs daily for 2 days, 2 tabs daily for 2 days, 1 tab daily for 2 days 20 Tab 0 08/18/2021 Active Propranolol HCl 20 MG Oral Tablet (Inderal)Indicatio ns:Graves disease,Hyperthyro idism Take 1 Tab by mouth 2 times a day. 60 Tab 5 09/08/2021 Active Propranolol HCl 20 MG Oral Tablet (Inderal)Indicatio ns:Graves disease,Hyperthyro idism Take 1 Tab by mouth 2 times a day. 90 Tab 5 05/18/2021 09/08/2021 Discontinued documented as of this encounter (statuses as of 09/08/2021) Active Problems Problem Noted Date Family history of [place] (myocardial infarct ion) 02/18/2021 Hyperthyroidism 02/18/2021 Anxiety 02/18/2021 Graves disease 02/18/2021 Other allergic rhinitis 07/30/2001 Overview: ICD-10 update of inactive term Asthma with severity to be determined Overview: ICD-10 update of inactive term ATTN DEFIC NONHYPERACT 01/24/2000 EXT ASTHMA W-O STAT ASTH Dysmenorrhea documented as of this encounter (statuses as of 09/08/2021) Resolved Problems Problem Noted Date Resolved Date [...] as of this encounter (statuses as of 09/08/2021) Immunizations Name Administration Dates Next Due DT [...] encounter Miscellaneous Notes * Telephone Encounter - Jason Paulino RPh - 09/08/2021 2:37 PM EDT Signed Prescriptions: Disp Refills Propranolol HCl 20 MG Oral Tablet (Inderal)60 Tab 5 Sig: Take 1 Tab by mouth 2 times a day.Authorizing Provider: Adelso CHAPMAN User: JASON PAULINO-------- * Telephone Encounter - Jason Paulino RPh - 09/08/2021 2:35 PM EDT Rx from 05/18/21 listed as class: dose adjustment and was not sent to pharmacy. Sent rx from 05/18/21 Jason Oleary, PharmD Clinical Pharmacist Telepharmacy 09/08/2021, 2:37 PM documented in this encounter Plan of Treatment Upcoming Encounters Date Type Specialty Care Team Description [facility]/14[facility] [address] [place] [address] Health Maintenance Due Date Last [...] Documents on File Type Date Recorded Patient Telecommunicator Expl 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 Advanced Directive Advanced Directive Advanced Directive Advanced Directive Advanced Directive
--- OUTSIDE RECORDS SUMMARY | 2023-08-25 07:41 | External Medical Summary | Summary of Care ---
Author Name Unknown Organization [facility] Address [place] [address] Care Team Providers Care Return Agent Airport Name Role Phone Jethro Stevens DO Primary Care Provider Reason for Visit * Reason Onset Date Comments Referral 06/28/2021 GI Nutrition Encounter Details Date Type Department Care Team Description 06/28/2021 Telephone Family Practice [facility] [address] [place] [address] Jethro Stevens DO [address] [place] [address] [phone] Referral (GI Nutrition) Allergies Active Allergy Reactions Severity Noted Date Comments Pollen 05/29/2013 Peanut Oil 05/29/2013 documented as of this encounter (statuses as of 06/29/2021) Medications Medication Sig Dispensed Refills Start Date [...] as of this encounter (statuses as of 06/29/2021) Active Problems Problem Noted Date Family history of [place] (myocardial infarct ion) 02/18/2021 Hyperthyroidism 02/18/2021 Anxiety 02/18/2021 Graves disease 02/18/2021 Other allergic rhinitis 07/30/2001 Overview: ICD-10 update of inactive term Asthma with severity to be determined Overview: ICD-10 update of inactive term ATTN DEFIC NONHYPERACT 01/24/2000 EXT ASTHMA W-O STAT ASTH Dysmenorrhea documented as of this encounter (statuses as of 06/29/2021) Resolved Problems Problem Noted Date Resolved Date [...] as of this encounter (statuses as of 06/29/2021) Immunizations Name Administration Dates Next Due DT [...] Telephone Encounter - Linda Stevens OSA - 06/29/2021 9:00 AM EDT appt scheduled with pt * Telephone Encounter - Linda Stevens OSA - 06/28/2021 8:53 AM EDT GI Nutrition LM for pt to call back to schedule documented in this encounter Plan of Treatment Upcoming Encounters Date Type Specialty Care Team Description 08/03/2021 Telemedicine Gastroenterology Ivania Hercules PA-C [address] [place] [address] [phone] Health Maintenance Due Date Last Done Comments [...] Documents on File Type Date Recorded Patient Hot Man Expl 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 Advanced Directive
--- OUTSIDE RECORDS SUMMARY | 2023-08-25 07:41 | External Medical Summary | Summary of Care ---
Author Name Unknown Organization [place] [address] Care Team Providers Care Head Waiter/Waitress Name Role Phone Jethro Stevens DO Primary Care Provider Encounter Details Date Type Department Care Team Description 05/21/2021 Telephone Endocrinology, [place] [address] [place] [address] Francis Clark CRNP [address] [place] [address] Allergies Active Allergy Reactions Severity Noted Date Comments Pollen 05/29/2013 Peanut Oil 05/29/2013 documented as of this encounter (statuses as of 05/21/2021) Medications Medication Sig Dispensed Refills Start Date [...] as of this encounter (statuses as of 05/21/2021) Active Problems Problem Noted Date Family history of [place] (myocardial infarct ion) 02/18/2021 Hyperthyroidism 02/18/2021 Anxiety 02/18/2021 Graves disease 02/18/2021 Other allergic rhinitis 07/30/2001 Overview: ICD-10 update of inactive term Asthma with severity to be determined Overview: ICD-10 update of inactive term ATTN DEFIC NONHYPERACT 01/24/2000 EXT ASTHMA W-O STAT ASTH Dysmenorrhea documented as of this encounter (statuses as of 05/21/2021) Resolved Problems Problem Noted Date Resolved Date [...] as of this encounter (statuses as of 05/21/2021) Immunizations Name Administration Dates Next Due DT [...] Telemedicine Endocrinology Francis Clark CRNP [address], [place] [id number] Health Maintenance Due Date Last Done Comments [...] Documents on File Type Date Recorded Patient Global Account Executive Expl 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 Advanced Directive Advanced Directive Advanced Directive Advanced Directive Advanced Directive Advanced Directive Advanced Directive
--- OUTSIDE RECORDS SUMMARY | 2023-08-25 07:41 | External Medical Summary | Summary of Care ---
Author Name Unknown Organization [place] [address] Care Team Providers Care Saw Boss Name Role Phone Jethro Stevens DO Primary Care Provider Reason for Referral * Evaluate & Treat - Unlimited Visits (Within 30 days (routine)) Status Reason Specialty Diagnoses / Procedures Referred By Contact Referred To Contact Pending Review Specialty Services Required Sleep Medicine / Sleep Disorders Diagnoses Hyperthyroidism Obesity, Class II, BMI 35-39.9, isolated (see actual BMI) Daytime sleepiness Feli Ceballos PA-C [address] [place] [address] SLEEP DISORDERS [facility] [address] [place] [address] Question Answer Referral Priority Within 30 days (routine) CAD SLEEP MED ADULT REFERRAL Sleep Apnea Testing and Management Comments BMI 38 +snoring. Daytime fatigue Electronically signed by Feli Ceballos PA-C at Reason for Visit * Evaluate & Treat - Unlimited Visits (Within 10 days (routine)) Status Reason Specialty Diagnoses / Procedures Referred By Contact Referred To Contact Pending Review Specialty Services Required GI NUTRITION/IM / Gastroenterology Diagnoses Obesity, Class II, BMI 35-39.9, isolated (see actual BMI) Jethro Stevens DO [address] [place] [address] Encounter Details Date Type Department Care Team Description 08/03[facility]2021 [facility] [address] [place] [address] Feli Ceballos PA-C [address] [place] [address] Hyperthyroidism*; Obesity, Class II, BMI 35-39.9, isolated (see actual BMI); Daytime sleepiness Allergies Active Allergy Reactions Severity Noted Date Comments Pollen 05/29/2013 Peanut Oil 05/29/2013 documented as of this encounter (statuses as of 08/03/2021) Medications Medication Sig Dispensed Refills Start Date [...] mouth daily. 30 Tab 5 05/21/2021 Active Naltrexone HCl 50 MG Oral Tablet (Revia)Indications:Obe sity, Class II, BMI 35-39.9, isolated (see actual BMI) Take 0.5 Tabs by mouth daily. 45 Tab 3 06/28/2021 Active buPROPion HCl ER (XL) 150 MG Oral Tablet Extended Release 24 Hour (Wellbutrin XL)Indications:Obesity , Class II, BMI 35-39.9, isolated (see actual BMI) Take 1 Tab by mouth daily. 90 Tab 5 06/28/2021 Active Ozempic (0.25 or 0.5 MG/DOSE) 2 MG/1.5ML Solution Pen-injector (Semaglutide(0.25 or 0.5MG/DOS)) Inject 0.25 mg under the skin once a week. 1.5 mL 1 08/03/2021 Active documented as of this encounter (statuses as of 08/03/2021) Active Problems Problem Noted Date Family history of CT (myocardial infarct ion) 02/18/2021 Hyperthyroidism 02/18/2021 Anxiety 02/18/2021 Graves disease 02/18/2021 Other allergic rhinitis 07/30/2001 Overview: ICD-10 update of inactive term Asthma with severity to be determined Overview: ICD-10 update of inactive term ATTN DEFIC NONHYPERACT 01/24/2000 EXT ASTHMA W-O STAT ASTH Dysmenorrhea documented as of this encounter (statuses as of 08/03/2021) Resolved Problems Problem Noted Date Resolved Date [...] as of this encounter (statuses as of 08/03/2021) Immunizations Name Administration Dates Next Due DT [...] - Inhaled Oxygen Concentration - - Weight 95.3 kg (210 lb) 08/03/2021 4:06 PM EDT r eported Height - - Body Mass Index 38.41 04/20/2021 10:33 AM EDT documented in this encounter Progress Notes * Feli Ceballos PA-C - 08/03/2021 2:52 PM EDT [facility] CONSULTATION Referring Physician: Jethro Stevens DO Patient location: HOME. I was in a hospital or clinic location. After connecting through [employer],patient was verified with two unique identifiers. Patient (or authorized legal airline security representative) was then informed that this was a Telemedicine visit and being conducted confidentially over secure lines. Methods to assure confidentiality were taken. Patient acknowledged consent and understanding of pr ivacy and security of the Telemedicine visit. The patient agreed to participate. Source of information: Patient Available records reviewed: Recent provider visits, Imaging and Labs Reason for Referral: Weight Management. Starr Dove is a 35 year old patient with a past medical history for :] Past Medical History: Diagnosis Date • Allergic rhinitis due to other allergen immunotherapy for 2 years • Asthma, allergic exercise component • Attention deficit disorder without hyperactivity • Graves disease • Reactive depression who presents to the [facility] for further recommendations. HPI: The patient suffers from Class II obesity Patient is interested in the following treatment options for obesity: medical management and possible medication use. Previous Weight Management Interventions: The patient has tried weight loss in the past without significant termination clerk success. Previous interventions: Self-directed. She confirms any past pharmacotherapy for weight loss Naltrexone and Wellbutrin. Weight history: Highest Body Weight: Is - now Wt Readings from Last 8 Encounters: 08/03/21 95.3 kg (210 lb) 04/20/21 95.6 kg (210 lb 12.8 oz) 04/01/21 94.4 kg (208 lb 3 oz) 12/25/20 93 kg (205 lb 2 oz) 09/29/20 91.2 kg (201 lb) 09/23/20 93.2 kg (205 lb 6 oz) 11/12/13 83.9 kg (185 lb) 10/21/13 81.2 kg (179 lb) Current Diet: Describes typical diet history/24 hr recall Breakfast: coffee, bagel Snacks: - Lunch: packs left overs. Snacks: pretzels ,, Dinner: some on the go. 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 Past Medical History: Diagnosis Date • Allergic rhinitis due to other allergen immunotherapy for 2 years • Asthma, allergic exercise component • Attention deficit disorder without hyperactivity Past Surgical History: Procedure Laterality Date • DENTAL SURGERY PROCEDURE NEC 1 wisdom tooth • INCISION OF EARDRUM as child Myringotomy/with tubes REMOVE TONSILS & ADENOIDS, UNDER 12 as child Tonsillectomy/Adenoids,<12 Y/O Review of patient's allergies indicates: Allergen Reactions • Environmental [Pollen] • Peanut Oil Current Outpatient Medications Medication Sig Dispense Refill buPROPion HCl ER (XL) 150 MG Oral Tablet Extended Release 24 Hour (Wellbutrin XL) Take 1 Tab by mouth daily. 90 Tab 5 Naltrexone HCl 50 MG Oral Tablet (Revia) Take 0.5 Tabs by mouth daily. 45 Tab 3 methIMAzole 10 MG Oral Tablet (Tapazole) Take [...] (90 BASE) MCG/ACT IN AERS as needed Family History: Family History Problem Relation Age of Onset • Diabetes Mother • Hypertension Mother • No Past Hx Father step father • Heart Disorder Grandfather (Maternal) • Diabetes Grandmother (Maternal) • Hypertension Grandmother (Maternal) • Musculo-skeletal Disorder Grandmother (Maternal) arthitis • No Past Hx Sister Social History: Alcohol: Infrequent Tobacco Use: No [...] file for this visit. Sleep Apnea: possibly Sleep Apnea STOP-BANG: Does patient snore loudly (louder than talking or loud enough to be heard)?Yes, less than 3 times per week Does patient feel tired, fatigued or sleepy during daytime? yes Have others observed patient stopping breathing during sleep? No Does patient have/is being treated for high blood pressure? no BMI greater than 35 kg/m2? yes; There is no height or weight on file to calculate BMI. Patient 50 years or older? no; 35 year old Neck circumference greater than 16 inches? Unknown, this was a Telemed Visit. Gender: female Score: greater than or equal to 3 refer to sleep medicine Endocrine: Yes - Graves Patient denies personal or family history of medullary thyroid carcinoma. Patient denies personal or family history of multiple endocrine neoplasia syndrome. Insulin Resistance: Yes Diabetes: No - Hemoglobin AIC Results: No components found for: [id number] Dyslipidemia: No Lipid Panel Results: GI: No [...] and speech normal Assessment and Recommendation: Ms. Eyer is a 35 year old patient with a past medical history listed above, who presents to the [facility] for further recommendations. Abnormal weight gain Body mass index is 38.41 kg/m². Class II obesity. · Discussed weight management options and would like to proceed with medication weight management. · Barriers are consistency,. · Motivators are feeling better, avoiding/reducing comorbid conditions,. · Patient goals were discussed in detail at visit. Very nice lady who has struggled with weight for a while she has made some changes with her diet and has been frustrated at the lack of weight loss. She has also been recently treated for Graves disease in the last year. This was untreated for a good amount of time prior. Will have her work on 3 regular meals a day decrease the evening snacking. Add protein to her morning routine. Can try protein shake if she would like. I have asked her to keep a food journal (E05.90) Hyperthyroidism (primary encounter diagnosis) Plan: Follows with Endocrinology. On Tapazole. (E66.9) Obesity, Class II, BMI 35-39.9, isolated (see actual BMI) Plan: SLEEP MEDICINE REFERRAL OP Patient started on Wellbutrin and naltrexone with her PCP last month has not noticed any change in appetite. Does feel like the Wellbutrin has helped with her mood. Can stop the naltrexone continue the Wellbutrin. Would like to try another medication to help with weight loss. Would try Ozempic off-label. No family history or personal family history of medullary thyroid cancer or men syndrome type 2 Medication Orders Placed This Encounter Medications • Ozempic (0.25 or 0.5 MG/DOSE) 2 MG/1.5ML Solution Pen-injector (Semaglutide(0.25 or 0.5MG/DOS)) If her insurance does not cover the Ozempic we can try increasing the dose of Wellbutrin and naltrexone closer to the dosages of brand name Contrave I would not use phentermine with her with her hyperthyroid at this point (R40.0) Daytime sleepiness Plan: SLEEP MEDICINE REFERRAL OP New patient packet, 1500 calorie diet, meal replacement shake a bar options handouts sent via my [employer] Time spent with patient 45 minutes. More than 50% of my time spent with patient providing counseling about the benefits of weight loss, about the patient's nutritional status, detailed explanations about calorie count, types of nutrients to choose, and composition of the meals. Reviewed and discussed weight, weight trends and pertinent labs and test results. Motivational interview provided in order to prepare the patient to achieve future goals. The patient agreed to try all the plan discussed and return in one month. Patient was instructed to message or call in the meantime with any further concerns or questions. Case discussed with Dr. He Ceballos PA-C documented in this encounter Plan of Treatment Scheduled Referrals Name Type Priority Associated Diagnoses Orde r Schedule SLEEP MEDICINE REFERRAL OP Referral Within 30 days (routine) Hyperthyroidism Obesity, Class II, BMI 35-39.9, isolated (see actual BMI) Daytime sleepiness Ordered: 08/03/2021 Health Maintenance Due Date Last Done Comments [...] 35-39.9, isolated (see actual BMI) Morbid obesity Daytime sleepiness documented in this encounter Advance Directives Documents on File Type Date Recorded Patient Motion Picture Narrator Expl 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 Advanced Directive Advanced Directive
--- OUTSIDE RECORDS SUMMARY | 2023-08-25 07:41 | External Medical Summary | Summary of Care ---
Author Name Unknown Organization [facility] Address [place] [address] Care Team Providers Care Stunt Man Name Role Phone Jethro Stevens DO Primary Care Provider Encounter Details Date Type Department Care Team Description 08/18/2021 Telemedicine Family Practice [facility] [address] [place] [address] Jethro Stevens DO [address] [place] [address] [phone] Viral URI with cough* Allergies Active Allergy Reactions Severity Noted Date Comments Pollen 05/29/2013 Peanut Oil 05/29/2013 documented as of this encounter (statuses as of 08/18/2021) Medications Medication Sig Dispensed Refills Start Date [...] as of this encounter (statuses as of 08/18/2021) Active Problems Problem Noted Date Family history of MA (myocardial infarct ion) 02/18/2021 Hyperthyroidism 02/18/2021 Anxiety 02/18/2021 Graves disease 02/18/2021 Other allergic rhinitis 07/30/2001 Overview: ICD-10 update of inactive term Asthma with severity to be determined Overview: ICD-10 update of inactive term ATTN DEFIC NONHYPERACT 01/24/2000 EXT ASTHMA W-O STAT ASTH Dysmenorrhea documented as of this encounter (statuses as of 08/18/2021) Resolved Problems Problem Noted Date Resolved Date [...] as of this encounter (statuses as of 08/18/2021) Immunizations Name Administration Dates Next Due DT [...] Progress Notes * Jethro Stevens DO - 08/18/2021 8:17 AM EDT I was in a hospital or clinic location. After connecting through televideo, patient was verified with two unique identifiers. Patient (or authorized legal account retention representative) was then informed that this was a Telemedicine visit and being conducted confidentially over secure lines. Methods to assure confidentiality were taken. Patient acknowledged consent and understanding of privacy and security of the Telemedicine visit. The patient agreed to participate. There are no exam notes on file for this visit. ASSESSMENT/PLAN: 1. Viral URI with cough Educated on conservative treatment to include good hydration, rest, and humidified air. Educated the patient on signs of bacterial illness to include sudden worsening symptoms, high fevers, and increasing severity of illness. Follow up as needed. - predniSONE 20 MG Oral Tablet (Deltasone); Take 4 tabs daily for 2 days, 3 tabs daily for 2 days, 2 tabs daily for 2 days, 1 tab daily for 2 days Dispense: 20 Tab; Refill: 0 HPI: Starr Dove is a 35 year old female who: Presents today With viral URI sx Tested negative for covid ROS: CONSTITUTIONAL: no weight loss, no fevers, no sweats HEENT: no change in vision or hearing, + congestion+sore throat CARDIAC: no chest pain, no palpitations, no orthopnea, no [place], no syncope RESP:+wheezing GI: no pain, no NVDC, no melena/hematochezia SKIN: no rashes MSK: no significant joint or muscle pain and no swelling : no dysuria or discharge NEURO: no memory loss, no numbness PSYCH: no SI/HI PHYSICAL EXAMINATION: There were no vitals taken for this visit. GENERAL: alert, healthy, no distress, well nourished and well developed HEAD: normocephalic, atraumatic EYES: PERRL, EOMI, Conjunctiva are pink and non-injected, sclera clear NEURO: alert & oriented x 3 with fluent speech Patient Active Problem List Diagnosis Code • Asthma with severity to be determined J45.909 • ATTN DEFIC NONHYPERACT F98.8 • Other allergic rhinitis J30.89 • EXT ASTHMA W-O STAT ASTH J45.909 • Dysmenorrhea N94.6 • Family history of MA (myocardial infarction) Z82.49 • Hyperthyroidism E05.90 • [...] Outpatient Medications Medication Sig Dispense Refill • predniSONE 20 MG Oral Tablet (Deltasone) Take 4 tabs daily for 2 days, 3 tabs daily for 2 days,2 tabs daily for 2 days, 1 tab daily for 2 days 20 Tab 0 buPROPion HCl ER (XL) 150 MG Oral Tablet Extended Release 24 Hour (Wellbutrin XL) Take 1 in am. and1 around 3:00 p.m. 180 Tab 5 Naltrexone HCl 50 MG Oral Tablet (Revia) Take 0.5 Tabs by mouth 2 times a day. 90 Tab 0 Ozempic (0.25 or 0.5 MG/DOSE) 2 MG/1.5ML Solution Pen-injector (Semaglutide(0.25 or 0.5MG/DOS)) Inject 0.25 mg under the skin once a week. 1.5 mL 1 methIMAzole 10 MG Oral Tablet (Tapazole) Take [...] • Peanut Oil Jethro Stevens DO Family [address] [address] (This note was completed using the dictation [...] Telemedicine Gastroenterology Feli Ceballos PA-C [address] [place] [address] Health Maintenance Due Date Last [...] Acute upper respiratory infections of unspecified site documented in this encounter Advance Directives Documents on File Type Date Recorded Patient Programmer Or Analyst Expl 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 Advanced Directive Advanced Directive Advanced Directive Advanced Directive Advanced Directive
--- OUTSIDE RECORDS SUMMARY | 2023-08-25 07:41 | External Medical Summary ---
Author Name Unknown Address Unknown Organization K01:[facility] [address] [place] [address] Laboratory Report Ordering Provider Test Date Status JULIENNE GALARZA 08/16/2021 14:54:09 Final Observation Date Value Abnormality Reference (Units ) Status SARS Coronavirus 2 08/16/2021 14:54:09 Negative N egative Final Performing Location [facility] [address] [place] [address]
--- OUTSIDE RECORDS SUMMARY | 2023-08-25 07:42 | External Medical Summary | Summary of Care ---
Author Name Unknown Organization [facility] Address [place] [address] Care Team Providers Care Recycling Director Name Role Phone Hood Issa MD Primary Care Provide r Reason for Visit * Reason Onset Date Comments Abnormal Test Results 01/22/2021 Encounter Details Date Type Department Care Team Description 01/22/2021 Telephone Family Practice [address] [place] [address] Hood Issa MD [address] [place] [address] [place] [address] Abnormal Test Results Allergies Active Allergy Reactions Severity Noted Date Comments Pollen 05/29/2013 Peanut Oil 05/29/2013 documented as of this encounter (statuses as of 01/25/2021) Medications Medication Sig Dispensed Refills Start Date End Date Status ALBUTEROL SULFATE HFA 108 (90 BASE) MCG/ACT IN AERS as needed 0 Active IBUPROFEN 600 MG PO TABS None Entered 0 Active SUMATRIPTAN SUCCINATE 50 MG PO TABSIndications:Migrai ne with intractable migraine 1 TABLET 1 TIME ONLY,REPEAT AFTER 2 HR NEEDED 30 Tab 3 11/12/2013 Active hydrOXYzine HCl 25 MG Oral Tablet Take 1 Tab by mouth every 6 hours as needed for Anxiety. 40 Tab 2 11/10/2020 Active methIMAzole 10 MG Oral Tablet (Tapazole)Indications: Graves disease Take 1.5 Tabs by mouth daily. 45 Tab 5 12/25/2020 Active Propranolol HCl 10 MG Oral Tablet (Inderal)Indications:G raves disease Take 1 Tab by mouth 3 times a day. 90 Tab 5 12/25/2020 Active documented as of this encounter (statuses as of 01/25/2021) Active Problems Problem Noted Date Other allergic rhinitis 07/30/2001 Overview: ICD-10 update of inactive term Asthma with severity to be determined Overview: ICD-10 update of inactive term ATTN DEFIC NONHYPERACT 01/24/2000 EXT ASTHMA W-O STAT ASTH Dysmenorrhea documented as of this encounter (statuses as of 01/25/2021) Resolved Problems Problem Noted Date Resolved Date [...] as of this encounter (statuses as of 01/25/2021) Immunizations Name Administration Dates Next Due DT - Diptheria/Tetanus (PEDS) 01/24/1991, 987,03/21/1986 DTP Vaccine 01/23/1986,1985 Haemophilus B (HIB) 03/30/1989 Hepatitis B, 0-19 yrs 02/25/1997,09/11/1996,06/20 MMR - Measles/Mumps/Rubella Vaccine 01/24/1991,1 12/05/1986 OPV - Polio Virus Vaccine (Oral) 991,09/26/1986,01/23/1986,1985 Seasonal Influenza, Quadriva lent, No Preserve, 6 Mons & Above, IM 09/23/2020 Seasonal Influenza, Trivalen t, with Preserve, 3yr & Above, Split 08/08/2013 TD - Tetanus/Diptheria (ADULT) 07/04/1997 documented as of this encounter Social History Tobacco Use Types Packs/Day Years Used Date Never Smoker Alcohol Use Drinks/Week oz/Week Comments No Sex Assigned at Date Recorded Not on file Job Start Date Occupation Industry Not on file Not on file Not on file documented as of this encounter Miscellaneous Notes * Telephone Encounter - Francis Clark CRNP - 01/25/2021 9:06 AM EST Called to review labs with patient, no answer LMTC Results for orders placed or performed in visit on 01/22/21 TSH Result Value Ref Range TSH - OUTSIDE LAB 0.01 (A) 0.40 - 4.50 MIU/L Free T3 - 5 (high) Free T4 1.5 (normal) TSH now not completely suppressed with improvement in both her Free T3 and Free T4. Would continue on current dosing of methimazole of 15mg daily. Will have her repeat thyroid labs in 3-4 weeks - standing lab orders are placed. * Telephone Encounter - Yolande Gabriel LPN - 01/25/2021 8:39 AM EST Patient aware and verbalized understanding, will comply Pt asked that I forward this message to he Endo provider Pharm selected. Please advise. * Telephone Encounter - Angie Luz OSA - 01/22/2021 5:09 PM EST Patient calling back in, unable to transfer due to after hours call. Please advise. * Telephone Encounter - Palma Villanueva LPN - 01/22/2021 4:19 PM EST Called pt, let message for a return call * Telephone Encounter - Hood Issa MD - 01/22/2021 4:12 PM EST Nursing, please call and inform pt. Your tsh is low, your t3 is high Your T4 is normal I suggest that you discuss these results iwht endo to determine the next step. documented in this encounter Plan of Treatment Upcoming Encounters Date Type Specialty Care Team Description 02/18/2021 Office Visit Family Medicine Jethro Stevens DO [address] [facility] [place] [address] [phone] 04/08/2021 Telemedicine Endocrinology Francis Clark CRNP [address] [place] [address] Health Maintenance Due Date Last Done Comments Pneumococcal Vaccine: Pediatrics (0 to 5 Years) and At-Risk Patients (6 to 64 Years) (1 of 1 - PPSV23) 1991 DTaP,Tdap,and Td Vaccines (6 - Tdap) 1996 07/04/1997, 01/24/1991, 04/03/1987, Additional history exists PAP SMEAR-EVERY 3 YRS,AGES 21-65 2006 Influenza Vaccine (FLU shot) Completed 09/23/2020, 08/08/2013 MENINGOCOCCAL (MENACTRA/MENVEO) Aged Out No longer eligible based on patient's age to complete this topic documented as of this encounter Implants Not on filedocumented as of this encounter Advance Directives Documents on File Type Date Recorded Patient Telephone Surveyor Expl 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 Advanced Directive Advanced Directive
--- OUTSIDE RECORDS SUMMARY | 2023-08-25 07:42 | External Medical Summary ---
Author Name Unknown Address Unknown Organization K01:[facility] [address] [place] [address] Laboratory Report Ordering Provider Test Date Status MAGALY ESCAMILLA 03/23/2021 07:28:57 Final Observation Date Value Abnormality Reference (Units ) Status Insulin level 03/23/2021 07:28:57 40 Above high rainer l 3-25 (uU/mL) Final Performing Location [facility] - [address] [place] [address]
--- OUTSIDE RECORDS SUMMARY | 2023-08-25 07:42 | External Medical Summary ---
Author Name Unknown Address Unknown Organization K0G:[facility] - [address] [place] [address] Laboratory Report Ordering Provider Test Date Status MAGALY ESCAMILLA 03/23/2021 07:28:57 Final Observation Date Value Abnormality Reference (Units ) Status Albumin 03/23/2021 07:28:57 4.4 3.8-5.0 (g/dL) Final AST (Aspartate aminotransferase) 03/23/2021 07:28:57 29 10-35 (U/L) Final Alk Phos 03/23/2021 07:28:57 103 35-130 (U/L) Final ALT (Alanine aminotransferase) 03/23/2021 07:28:57 51 Above high normal 10-35 (U/L) Final Bilirubin, Total 03/23/2021 07:28:57 0.4 <=1.2 (mg/dL) Final Bilirubin, Direct 03/23/2021 07:28:57 <0.2 0.0-0.3 (mg/dL) Final Protein 03/23/2021 07:28:57 7.1 6.0-8.3 (g/dL) Final Performing Location [facility] - [address] [place] [address]
--- OUTSIDE RECORDS SUMMARY | 2023-08-25 07:42 | External Medical Summary | Summary of Care ---
Author Name Unknown Organization [place] [address] Care Team Providers Care Conventions Reservationist Name Role Phone Jethro Stevens DO Primary Care Provider Reason for Visit * Reason Comments Hyperthyroidism Encounter Details Date Type Department Care Team Description 04/08/2021 Telemedicine Endocrinology, [place] [address], [place] [id number] Francis Clark CRNP [address] [place] [address] Graves disease*; Family history of diabetes mellitus Allergies Active Allergy Reactions Severity Noted Date Comments Pollen 05/29/2013 Peanut Oil 05/29/2013 documented as of this encounter (statuses as of 04/08/2021) Medications Medication Sig Dispensed Refills Start Date [...] a day. 90 Tab 5 02/18/2021 Active documented as of this encounter (statuses as of 04/08/2021) Active Problems Problem Noted Date Family history of [place] (myocardial infarct ion) 02/18/2021 Hyperthyroidism 02/18/2021 Anxiety 02/18/2021 Graves disease 02/18/2021 Other allergic rhinitis 07/30/2001 Overview: ICD-10 update of inactive term Asthma with severity to be determined Overview: ICD-10 update of inactive term ATTN DEFIC NONHYPERACT 01/24/2000 EXT ASTHMA W-O STAT ASTH Dysmenorrhea documented as of this encounter (statuses as of 04/08/2021) Resolved Problems Problem Noted Date Resolved Date [...] as of this encounter (statuses as of 04/08/2021) Immunizations Name Administration Dates Next Due DT [...] of this encounter Progress Notes * Francis Clark CRNP - 04/08/2021 8:09 AM EDT Images from the original note [...] visit. The patient agreed to participate. This 35 year old female, Starr Dove, is seen today for follow up of Graves disease Thyroid history: Seen by back end web developer in the past advised she had mild Graves disease, no meds- had uptake and scan d/t abnormal labs, fatigue, mood changes, and weight fluctuation - Normal results Saw PCP - complaints of anxiety and weight issues - started on Methimazole last month + propranololdue to supressed TSH and elevated FT3/FT4; Positive TSI = Graves History of radiation exposure: Denies Family history of thyroid disorders: Hypothyroidism - aunt, cousin Last visit: 01/21/21 Current Regimen: Methimazole 15mg daily She takes it first thing in the morning and without any missed doses. Current Complaints: Patient reports overall feeling better since starting methimazole and beta- eboni a few months ago. Was previously experiencing fatigue, weight gain, heart palpitations, and tremors. Reports that these have overall resolved except for the weight gain and fatigue. She denies any significant anterior neck pain, difficulty breathing, or changes in voice. Reports some minor difficulty with swallowing depending on what she is eating (sporadic), no choking. She currently denies any heart palpitations, or tremors. (+) Changes in energy level - fatigued (+) Changes in weight - weight gain in recent past, now steady (-) Eye problems/bulging (-) Constipation/diarrhea (-) changes in skin (-) menstrual cycle irregularity (-) Anxiety/depression (+) Increased sweating On Methimazole: Denies any abdominal pain, sore throat, fever or rashes. Past Medical History Past Medical History: Diagnosis Date • Allergic rhinitis due to other allergen immunotherapy for 2 years • Asthma, allergic exercise component • Attention deficit disorder without hyperactivity Past Surgical History Past Surgical History: Procedure [...] Never Smoker • Smokeless tobacco: Never Used Substance Use Topics • Alcohol use: No [...] records from PCP, outside lab records Labs Ref. Range 03/23/2021 07:28 Hemoglobin A1C Latest Ref Range: 4.0 - 5.6 % 5.5 Insulin Latest Ref Range: 3 - 25 uU/mL 40 (H) Ref. Range 03/23/2021 07:28 WBC Latest Ref [...] Ref Range: 0.0 - 0.3 mg/dL <0.2 Ref. Range 09/23/2020 00:00 09/23/2020 00:00 12/11/2020 00:00 12/16/2020 00:00 01/20/2021 00:00 03/23/2021 07:28 TSH - OUTSIDE LAB Latest Ref Range: 0.40 - 4.50 MIU/L <0.01 (L) <0.01 0.01 (A) <0.01 (A) 0.01 (A) 0.03 T4, FREE - OUTSIDE LAB Latest Ref Range: 0.8 - 1.8 NG/DL 1.3 T4, Free Latest Ref Range: 0.9 - 1.7 ng/dL 1.0 T3, Free Latest Ref Range: 2.5 - 4.3 pg/mL 3.3 Imaging: NM thyroid scan did not show [...] and free T4, and positive TSI. Overall her symptoms of tremors and palpitations have resolved since being on beta-eboni. Since starting methimazole TFT's have improved - now with normal FT3/FT4 and TSH is now detectable. Will have her continue her current methimazole dosing and recheck her thyroid labs in one month. May consider decreasing her methimazole in near future. Also discussed definitive options in terms of her Graves disease. She wishes to continue on methimazole for now. She denies any eye issues currently. She would like to continue her BB dosing for now, may decrease or d/c in near future as well. Small subcentimer nodule noted on recent U/S - can monitor Q1-2 yearsor sooner if she experiences worsening compressive neck symptoms. Her ongoing concern is weight gain despite being hyperthyroid. She has a family history diabetes. Recent A1c in normal range, insulinlevel was elevated when recently checked, she was fasting. Possible insulin resistance. Discussed monitoring her diet in terms of carb intake, limiting to 45-60g carb/meal. She will work on this. Will obtain A1c, insulin level, fasting glucose in three months. Can consider metformin in near future especially if A1c is in prediabetic range at next check. - Methimazole 15mg daily - Propranolol 20mg TID - Lab work: TSH, FT3, FT4 monthly; ; Insulin, A1c, fasting glucose 3 months Advised to avoid caffeine, pseudoephedrine and other stimulants Dr. Soto was available in the clinic at the time of this office visit. We discussed the advantages and disadvantages of the three major therapeutic modalities used in thetreatment of Graves' hyperthyroidism. Therapy Advantages Disadvantages Thionamides (Methimazole, PTU) Chance of permanent remission Some patients avoid permanent hypothyroidism Lower cost Minor side effects: rash, hives, arthralgias, transient granulocytopenia, gastrointestinal symptoms Major side effects: agranulocytosis, vasculitis (lupus-like syndrome), hepatitis Risk of goiter and hypothyroidism if Requires more frequent monitoring Radioiodine Permanent resolution of hyperthyroidism Permanent hypothyroidism Patient must take radiation precautions for several days after treatment, avoiding contact with young children and women Rare radiation thyroiditis Patient concerns about long-term oncogenic effects of radiation Surgery Rapid, permanent cure of hyperthyroidism Permanent hypothyroidism Risk of hypoparathyroidism, recurrent laryngeal nerve damage, and general anesthesia High cost Follow Up: Return in about 4 months (around 08/09/2021) for Thyroid f/u. | I spent a total of 30 minutes caring for this patient including reviewing the chart, gathering the history, performing visual inspection, ordering and reconciling medications, ordering tests, performing counseling, and coordinating care. KIRSTEN [facility] [address] cc: PCP: DEB DAVIS [address] [place], [place] [address] [address] documented in this encounter Plan of Treatment Upcoming Encounters Date Type Specialty Care Team Description 08/04/2021 Telemedicine Endocrinology Francis Clark, KIRSTNE [address] [place] [address] [phone] Scheduled Orders Name Type Priority Associated Diagnoses Orde r Schedule HEMOGLOBIN A1C Lab Routine Family history of diabetes mellitus Expected: 07/09/2021, Expires: 10/09/2021 GLUCOSE, FASTING PLASMA Lab Routine Family history of diabetes mellitus Expected: 07/09/2021, Expires: 10/09/2021 INSULIN Lab Routine Family history of diabetes mellitus Expected: 07/09/2021, Expires: 10/09/2021 Health Maintenance Due Date Last Done Comments [...] without mention of thyrotoxic crisis or storm Family history of diabetes mellitus documented in this encounter Advance Directives Documents on File Type Date Recorded Patient Furnace Stock Inspector Expl 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 Advanced Directive Advanced Directive Advanced Directive Advanced Directive"
--- OUTSIDE RECORDS SUMMARY | 2023-08-25 07:42 | External Medical Summary | Summary of Care ---
Author Name Unknown Organization [facility] Address [place] [address] Care Team Providers Care Tow Motor Driver Name Role Phone Jethro Stevens DO Primary Care Provider Reason for Visit * Reason Onset Date Comments Test Results 03/31/2021 Encounter Details Date Type Department Care Team Description 03/31/2021 Telephone Family Practice [facility] [address] [place] [address] Jethro Stevens DO [address] [place] [address] [phone] Test Results Allergies Active Allergy Reactions Severity Noted Date Comments Pollen 05/29/2013 Peanut Oil 05/29/2013 documented as of this encounter (statuses as of 03/31/2021) Medications Medication Sig Dispensed Refills Start Date [...] as of this encounter (statuses as of 03/31/2021) Active Problems Problem Noted Date Family history of [place] (myocardial infarct ion) 02/18/2021 Hyperthyroidism 02/18/2021 Anxiety 02/18/2021 Graves disease 02/18/2021 Other allergic rhinitis 07/30/2001 Overview: ICD-10 update of inactive term Asthma with severity to be determined Overview: ICD-10 update of inactive term ATTN DEFIC NONHYPERACT 01/24/2000 EXT ASTHMA W-O STAT ASTH Dysmenorrhea documented as of this encounter (statuses as of 03/31/2021) Resolved Problems Problem Noted Date Resolved Date [...] as of this encounter (statuses as of 03/31/2021) Immunizations Name Administration Dates Next Due DT [...] Telephone Encounter - Daria Zimmerman LPN - 03/31/2021 2:37 PM EDT Information given to pt noted. * Telephone Encounter - Jethro Stevens DO - 03/31/2021 1:25 PM EDT Overall labs look ok, but insulin level was up, TSH slightly low (but T3, T4 look good). Otherwise normal. Endocrine will f/u on the insulin and thyroid levels when they see here on the . * Telephone Encounter - Daria Zimmerman LPN - 03/31/2021 9:39 AM EDT Please see below and advise. * Telephone Encounter - Maria Isabel Acevedo OSA - 03/31/2021 9:11 AM EDT Pt requesting to know results of blood work. Results in Epic. documented in this encounter Plan of Treatment Upcoming Encounters Date Type Specialty Care Team Description 04/08/2021 Telemedicine Endocrinology Francis Clark CRNP [address] [place], [place] [id number] Health Maintenance Due Date Last Done Comments [...] Documents on File Type Date Recorded Patient Perioperative Educator Expl 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 Advanced Directive Advanced Directive Advanced Directive
--- OUTSIDE RECORDS SUMMARY | 2023-08-25 07:42 | External Medical Summary | Summary of Care ---
Author Name Unknown Organization [facility] Address [place] [address] Care Team Providers Care Development Director Name Role Phone Hood Issa MD Primary Care Provide r Reason for Visit * Reason Onset Date Comments Abnormal Test Results 01/22/2021 Encounter Details Date Type Department Care Team Description 01/22/2021 Telephone Family Practice [address] [place] [address] Hood Issa MD [address] [place] [address] [place] [address] Abnormal Test Results Allergies Active Allergy Reactions Severity Noted Date Comments Pollen 05/29/2013 Peanut Oil 05/29/2013 documented as of this encounter (statuses as of 01/27/2021) Medications Medication Sig Dispensed Refills Start Date [...] as of this encounter (statuses as of 01/27/2021) Active Problems Problem Noted Date Other allergic rhinitis 07/30/2001 Overview: ICD-10 update of inactive term Asthma with severity to be determined Overview: ICD-10 update of inactive term ATTN DEFIC NONHYPERACT 01/24/2000 EXT ASTHMA W-O STAT ASTH Dysmenorrhea documented as of this encounter (statuses as of 01/27/2021) Resolved Problems Problem Noted Date Resolved Date [...] as of this encounter (statuses as of 01/27/2021) Immunizations Name Administration Dates Next Due DT [...] encounter Miscellaneous Notes * Telephone Encounter - Fady Vera OSA - 01/27/2021 9:37 AM EST Patient calling to check on the status of results. Patient aware of note from Francis - will continue current dose and recheck in 3-4 weeks. Thanks. * Telephone Encounter - Francis Clark CRNP [...] suggest that you discuss these results iwht daniel to determine the next step. documented in this encounter Plan of Treatment Upcoming Encounters Date Type Specialty Care Team Description 02/18/2021 Office Visit Family Medicine Jethro Stevens, [address] [place] [address] 04/08/2021 Telemedicine Endocrinology Francis Clark CRNP [address] [place] [facility] [address] Health Maintenance Due Date [...] Documents on File Type Date Recorded Patient Repair Department Manager Expl 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 Advanced Directive Advanced Directive
--- OUTSIDE RECORDS SUMMARY | 2023-08-25 07:42 | External Medical Summary ---
Author Name Unknown Address Unknown Organization [id number][facility] [place] [address] Laboratory Report Ordering Provider Test Date Status MAGALY ESCAMILLA 03/23/2021 07:28:57 Final Observation Date Value Abnormality Reference (Units ) Status WBC, Total 03/23/2021 07:28:57 7.24 4.00-10.8 0 (K/uL) Final RBC 03/23/2021 07:28:57 4.63 3.85-5.15 (M/uL) Final Hemoglobin 03/23/2021 07:28:57 13.0 12.0-15.3 (g/dL) Final HCT 03/23/2021 07:28:57 39.0 36.0-45.2 (%) Final MCV 03/23/2021 07:28:57 84.2 81.5-97.5 (fL) Final MCH 03/23/2021 07:28:57 28.1 27.0-34.0 (pg) Final MCHC 03/23/2021 07:28:57 33.3 32.0-36.0 (g/dL) Final RDW 03/23/2021 07:28:57 13.0 11.5-15.5 (%) Final Platelets 03/23/2021 07:28:57 254 140-400 (K /uL) Final MPV 03/23/2021 07:28:57 10.2 6.6-11.1 ( fL) Final Performing Location [facility] [place] [address]
--- OUTSIDE RECORDS SUMMARY | 2023-08-25 07:42 | External Medical Summary ---
Author Name Unknown Address Unknown Organization [id number]:[facility] [address] [place] [address] Laboratory Report Ordering Provider Test Date Status MAGALY ESCAMILLA 03/23/2021 07:28:57 Final Observation Date Value Abnormality Reference (Units ) Status HbA1C 03/23/2021 07:28:57 5.5 4.0-5.6 (% ) Final Performing Location [facility] - [address] [place] [address]
--- OUTSIDE RECORDS SUMMARY | 2023-08-25 07:42 | External Medical Summary ---
Author Name Unknown Address Unknown Organization [id number]:[facility] [address] [place] [address] Laboratory Report Ordering Provider Test Date Status MAGALY ESCAMILLA 03/23/2021 07:28:57 Final Observation Date Value Abnormality Reference (Units ) Status SYNC LEUKOCYTES IN BLOOD BY AUTOMATED COUNT 03/23/2021 07:28:57 7.24 4.00-10.80 (K/uL) Final Segs 03/23/2021 07:28:57 57.3 40.0-75.0 (%) Final Lymphs % 03/23/2021 07:28:57 27.8 18.0-42.0 (%) Final Monos 03/23/2021 07:28:57 7.5 1.0-11.0 (%) Final Eosinophils 03/23/2021 07:28:57 6.8 Above high normal 0.0-6.0 (%) Final Basos 03/23/2021 07:28:57 0.6 0.0-2.0 (%) Final Absolute Segs 03/23/2021 07:28:57 4.16 1.80-7.70 (K/uL) Final Lymphs, absolute 03/23/2021 07:28:57 2.01 1.00-4.80 (K/ul) Final Monos, Abs 03/23/2021 07:28:57 0.54 0.00-1.10 (K/uL) Final Eos, Abs 03/23/2021 07:28:57 0.49 0.00-0.70 (K/uL) Final Basos, Abs 03/23/2021 07:28:57 0.04 0.00-0.20 (K/uL) Final Performing Location [facility] [address] [place] [address]
--- OUTSIDE RECORDS SUMMARY | 2023-08-25 07:42 | External Medical Summary | Summary of Care ---
Author Name Unknown Organization [place] [address] Care Team Providers Care Side Laster Staple Name Role Phone Jethro Stevens DO Primary Care Provider Reason for Visit * Reason Comments Hyperthyroidism Encounter Details Date Type Department Care Team Description 04/08/2021 Telemedicine Endocrinology, [place] [address] [place], [place] [id number] Francis Clark CRNP [address] [place] [address] Graves disease*; Family history of [...] Problems Problem Noted Date Family history of [place] (myocardial infarct ion) [...] unique identifiers. Patient (or authorized legal account maintenance representative) was then informed that this was a Telemedicine visit and being conducted confidentially over secure lines. Methods to assure confidentiality were taken. Patient acknowledged consent and understanding of pr ivacy and security of the Telemedicine visit. The patient agreed to participate. This 35 year old female, Starr Dove, is seen today for follow up of Graves disease Thyroid history: Seen by jewish history professor in the past advised she had mild [...] performing counseling, and coordinating care. KIRSTEN [facility] [address] cc: PCP: DEB DAVIS [address] [place], [place] [address]ist [place] [address] documented in this encounter Plan of Treatment Upcoming Encounters Date Type Specialty Care Team Description 08/04/2021 Telemedicine Endocrinology Francis Clark, KIRSTEN [address] [place] [address] [phone] Scheduled Orders Name Type Priority Associated Diagnoses [...] Documents on File Type Date Recorded Patient Exhibit Preparator Expl 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 Advanced Directive Advanced Directive Advanced Directive Advanced Directive"
--- OUTSIDE RECORDS SUMMARY | 2023-08-25 07:42 | External Medical Summary ---
Author Name Unknown Address Unknown Organization [id number]:[facility] - [address] [place] [address] Laboratory Report Ordering Provider Test Date Status MAGALY ESCAMILLA 03/23/2021 07:28:57 Final Observation Date Value Abnormality Reference (Units ) Status T4, Free 03/23/2021 07:28:57 1.0 0.9-1.7 (n g/dL) Final Performing Location [facility] - [address] [place] [address]
--- OUTSIDE RECORDS SUMMARY | 2023-08-25 07:42 | External Medical Summary | Summary of Care ---
Author Name Unknown Organization [facility] Address [place] [address] Care Team Providers Care Marketing Traffic Manager Name Role Phone Jethro Stevens DO Primary Care Provider Reason for Visit * Reason Comments Acute Encounter Details Date Type Department Care Team Description 04/20/2021 Office Visit Family Medicine [address] [place] [address] Cally Montalvo PA-C [address] [place] [address] [place] [address] Cyst of skin* Allergies Active Allergy Reactions Severity Noted Date Comments Pollen 05/29/2013 Peanut Oil 05/29/2013 documented as of this encounter (statuses as of 04/20/2021) Medications Medication Sig Dispensed Refills Start Date [...] as of this encounter (statuses as of 04/20/2021) Active Problems Problem Noted Date Family history of DC (myocardial infarct ion) 02/18/2021 Hyperthyroidism 02/18/2021 Anxiety 02/18/2021 Graves disease 02/18/2021 Other allergic rhinitis 07/30/2001 Overview: ICD-10 update of inactive term Asthma with severity to be determined Overview: ICD-10 update of inactive term ATTN DEFIC NONHYPERACT 01/24/2000 EXT ASTHMA W-O STAT ASTH Dysmenorrhea documented as of this encounter (statuses as of 04/20/2021) Resolved Problems Problem Noted Date Resolved Date [...] as of this encounter (statuses as of 04/20/2021) Immunizations Name Administration Dates Next Due DT [...] Date Never Smoker Smokeless Tobacco: Never Used Tobacco Cessation:Counseling Given: No Alcohol Use Drinks/Week oz/Week Comments No Sex Assigned at Date Recorded Not on file Job Start Date Occupation Industry Not on file Not on file Not on file documented as of this encounter Last Filed Vital Signs Vital Sign Reading Time Taken Comments Blood Pressure 102/68 04/20/2021 10:33 AM EDT Pulse 60 04/20/2021 10:33 AM EDT Temperature 36.3 °C (97.3 °F) 04/20/2021 1 0:33 AM EDT Respiratory Rate 16 04/20/2021 10:3 3 AM EDT Oxygen Saturation 97% 04/20/2021 10: 33 AM EDT Inhaled Oxygen Concentration - - Weight 95.6 kg (210 lb 12.8 oz) 021 10:33 AM EDT Height 157.5 cm (5' 2") 04/20/2021 10:3 3 AM EDT Body Mass Index 38.56 04/20/2021 10:33 AM EDT documented in this encounter Progress Notes * Cally Montalvo PA-C - 04/20/2021 10:36 AM EDT Nursing Notes: Maria A Duque LPN 04/20/21 1033 Sign at exiting of workspace Pt here for abdominal pain (around belly button) x 2 days States when she pushes on it she feels swelling and pain Denies any nausea or vomiting Denies any injury to the spot Has taken ibuprofen - helped some Pt here today with pain at umbilicus for the past 2 days. Pt states that the pain and lump is inside the umbilicus. Pt has had this in the past and she started to have some bleeding from belly button. Pt states that it isn't to that point, yet. Pt denies nausea, vomiting, fever, chills, bowel/bladder sx. Review of patient's allergies indicates: Allergen Reactions • Environmental [Pollen] • Peanut Oil Current Outpatient Medications Medication Sig Dispense Refill • Amoxicillin 500 MG Oral Capsule (Amoxil) Take 500 mg by mouth 3 times a day. • hydrOXYzine HCl 50 MG Oral Tablet Take 1 Tab by mouth every 6 hours as needed for Anxiety. 40 Tab 2 • Propranolol HCl 20 MG Oral Tablet (Inderal) Take 1 Tab by mouth 3 times a day. 90 Tab 5 • methIMAzole 10 MG Oral Tablet (Tapazole) Take 1.5 Tabs by mouth daily. 45 Tab 5 • SUMATRIPTAN SUCCINATE 50 MG PO TABS 1 TABLET 1 TIME ONLY,REPEAT AFTER 2 HR NEEDED 30 Tab 3 • IBUPROFEN 600 MG PO TABS None Entered • ALBUTEROL SULFATE HFA 108 (90 BASE) MCG/ACT IN AERS as needed Past Medical History: Diagnosis Date • Allergic rhinitis due to other allergen immunotherapy for 2 years • Asthma, allergic exercise component • Attention deficit disorder without hyperactivity Social History Socioeconomic History • Marital status: Spouse name: Not on file • Number of children: Not on file • Years of education: Not on file • Highest education level: Not on file Occupational History • Not on file Social Needs • Financial resource strain: Not on file • Food insecurity Worry: Not on file Inability: Not on file • Transportation needs Medical: Not on file Non-medical: Not on file Tobacco Use • Smoking status: Never Smoker • Smokeless tobacco: Never Used Substance and Sexual Activity • Alcohol use: No • Drug use: No • Sexual activity: Not on file Lifestyle • Physical activity Days per week: Not on file Minutes per session: Not on file • Stress: Not on file Relationships • Social connections Talks on phone: Not on file Gets together: Not on file Attends oriental orthodox service: Not on file Active member of club or organization: Not on file Attends meetings of clubs or organizations: Not on file Relationship status: Not on file • Intimate partner violence Fear of current or ex partner: Not on file Emotionally abused: Not on file Physically abused: Not on file Forced sexual activity: Not on file Other Topics Concern • Not on file Social History Narrative • Not on file Vaping/E-Cigarette Use • Vaping/E-Cigarette Use Never User Vaping/E-Cigarette Substances Vaping/E-Cigarette Devices O:Blood pressure 102/68, pulse 60, temperature 36.3 °C (97.3 °F), temperature source Tympanic, resp. rate 16, height (!) 1.575 m (5' 2"), weight 95.6 kg (210 lb 12.8 oz), SpO2 97 %, unknown if currently . GENERAL: alert, healthy and no distress SKIN: small lump felt inside navel, cyst like. Mild tenderness. No erythema, no drainage. No umbilical hernia felt or seen. A:Cyst of skin (Primary) Pt is already on amoxil for the past 3 days. Watch for worsening or new sx. Any questions/problems,please call. If anything changes, worsens, develops new sx, please call ABELARDO. Follow Up: Return if symptoms worsen or fail to improve. Cally Montalvo PA-C documented in this encounter Nursing Notes * Maria A Duque LPN - 04/20/2021 10:31 AM EDT Pt here for abdominal pain (around belly button) x 2 days States when she pushes on it she feels swelling and pain Denies any nausea or vomiting Denies any injury to the spot Has taken ibuprofen - helped some documented in this encounter Plan of Treatment Upcoming Encounters Date Type Specialty Care Team Description 08/04/2021 Telemedicine Endocrinology Francis Clark CRNP [address] [place] [address] Health Maintenance Due Date Last [...] as of this encounter Visit Diagnoses Diagnosis Cyst of skin- Primary Sebaceous cyst documented in this encounter Advance Directives Documents on File Type Date Recorded Patient Editor Greeting Card Expl 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 Advanced Directive Advanced Directive Advanced Directive Advanced Directive Advanced Directive
--- OUTSIDE RECORDS SUMMARY | 2023-08-25 07:42 | External Medical Summary ---
Author Name Unknown Address Unknown Organization K01:[facility] - [address] [place] [address] Laboratory Report Ordering Provider Test Date Status MAGALY ESCAMILLA 03/23/2021 07:28:57 Final Observation Date Value Abnormality Reference (Units ) Status TSH 03/23/2021 07:28:57 0.03 Below low normal 0.2 7-4.20 (uIU/mL) Final Performing Location [facility] - [address] [place] [address]
--- OUTSIDE RECORDS SUMMARY | 2023-08-25 07:42 | External Medical Summary | Summary of Care ---
Author Name Unknown Organization [facility] Address [place] [address] Care Team Providers Care Food And Beverage Coordinator Name Role Phone Jethro Stevens DO Primary Care Provider Reason for Visit * Reason Comments Re-Check 1 mo recheck Grave's disease. Anxiety Would like to discus s getting refill for hydroxyzine, however, pt states med does not seem as effective as initial. Pt has had recent family stressors. Encounter Details Date Type Department Care Team Description 02/18/2021 Office Visit Family Practice [facility] [address] [facility] [place] [address] Jethro Stevens, [address] [facility] [place] [address] Hyperthyroidism*; Anxiety; Family history of NC (myocardial infarction); Graves disease Allergies Active Allergy Reactions Severity Noted Date Comments Pollen 05/29/2013 Peanut Oil 05/29/2013 documented as of this encounter (statuses as of 02/18/2021) Medications Medication Sig Dispensed Refills Start Date [...] a day. 90 Tab 5 02/18/2021 Active hydrOXYzine HCl 25 MG Oral Tablet Take 1 Tab by mouth every 6 hours as needed for Anxiety. 40 Tab 2 11/10/2020 02/18/2021 Discontinued Propranolol HCl 10 MG Oral Tablet (Inderal)Indicatio ns:Graves disease Take 1 Tab by mouth 3 times a day. 90 Tab 5 12/25/2020 02/18/2021 Discontinued documented as of this encounter (statuses as of 02/18/2021) Active Problems Problem Noted Date Family history of NC (myocardial infarct ion) 02/18/2021 Hyperthyroidism 02/18/2021 Anxiety 02/18/2021 Graves disease 02/18/2021 Other allergic rhinitis 07/30/2001 Overview: ICD-10 update of inactive term Asthma with severity to be determined Overview: ICD-10 update of inactive term ATTN DEFIC NONHYPERACT 01/24/2000 EXT ASTHMA W-O STAT ASTH Dysmenorrhea documented as of this encounter (statuses as of 02/18/2021) Resolved Problems Problem Noted Date Resolved Date Encounter for supervision of other normal pregna ncy 05/29/2013 10/10/2013 Overview: Transfer of Care; Records received 02/22/13: glucose 95; Hep BsAg neg; Hep C ab-nonreactive; HIV nonreactive; RPR nonreactive; rubella immune; O+, antibody negative 03/05/13- chlamydia negative, gonorrhea negative Patient received flu vaccine. 08/08/2013 Charlee Souza RN GBS Negative KIRSTEN Rios CNM 09/30/2013 ICD-10 update of inactive term documented as of this encounter (statuses as of 02/18/2021) Immunizations Name Administration Dates Next Due DT [...] Sign Reading Time Taken Comments Blood Pressure 108/72 02/18/2021 2:35 PM EDT Pulse 64 02/18/2021 2:35 PM EDT Temperature 36.7 °C (98.1 °F) 02/18/2021 2:35 PM ED T Respiratory Rate 16 02/18/2021 2:35 PM EDT Oxygen Saturation - - Inhaled Oxygen Concentration - - Weight 94.4 kg (208 lb 3 oz) 02/18/2021 2:35 PM EDT Height - - Body Mass Index 38.08 12/25/2020 8:40 AM EST documented in this encounter Progress Notes * Jethro Stevens, - 02/18/2021 2:42 PM EDT Nursing Notes: Daria Zimmerman, CRUZ 02/18/21 1438 Signed The patient has been properly identified by confirmation of name and date of . Chief Complaint Patient presents with • Re-Check 1 mo recheck Grave's disease. • Anxiety Would like to discuss getting refill for hydroxyzine, however, pt states med does not seem as effective as initial. Pt has had recent family stressors. ASSESSMENT/PLAN: 1. Hyperthyroidism Ongoing management Still hyper Sx still prominent Will bump dose of propranolol slowly 2. Anxiety - hydrOXYzine HCl 50 MG Oral Tablet; Take 1 Tab by mouth every 6 hours as needed for Anxiety. Dispense: 40 Tab; Refill: 2 3. Family history of NC (myocardial infarction) Mother with NC before the age of 60 4. Graves disease - Propranolol HCl 20 MG Oral Tablet (Inderal); Take 1 Tab by mouth 3 times a day. Dispense: 90 Tab;Refill: 5 HPI: Starr Dove is a 35 year old female who: Presents today in f/u Still having some sx but meds helping No other concerns right now but anxiety and sweating/heart racing at times ROS: See HPI for pertinent ROS PHYSICAL EXAMINATION: BP 108/72 (BP Site: Left Arm, BP Position: Sitting, BP Cuff Size: Regular) | Pulse 64 | Temp 36.7 °C (98.1 °F) (Tympanic) | Resp 16 | Wt 94.4 kg (208 lb 3 oz) | BMI 38.08 kg/m² | BSA 2.03 m² GENERAL: alert, healthy, no distress, well nourished and well developed EYES: PERRL, EOMI, Conjunctiva are pink and non-injected, sclera clear EARS: External ears normal, Canals clear, TM's Normal NOSE: no mucosal erythema, no mucosal edema, no purulent discharge OROPHARYNX: no exudate, no erythema, lips, buccal mucosa, and tongue normal, mucous membranes are moist and dentition normal NECK: supple, no adenopathy, thyroid normal size, non-tender, without nodularity HEART: regular rate & rhythm, no murmurs and no gallops LUNGS: clear to auscultation bilaterally. No wheezing/rales/rhonchi ABDOMEN: abdomen soft, non-tender, normal bowel sounds and no masses or organomegaly SKIN: skin color, texture, turgor are normal, no rashes or significant lesions NEURO: alert & oriented x 3 with fluent speech MSK:Normal Strength and ROM Results for orders placed or performed in visit on 01/22/21 TSH Result Value Ref Range TSH - OUTSIDE LAB 0.01 (A) 0.40 - 4.50 MIU/L Patient Active Problem List Diagnosis Code • Asthma with severity to be determined J45.909 • ATTN DEFIC NONHYPERACT F98.8 • Other allergic rhinitis J30.89 • EXT ASTHMA W-O STAT ASTH J45.909 • Dysmenorrhea N94.6 • Family history of NC (myocardial infarction) Z82.49 • Hyperthyroidism E05.90 • [...] • Peanut Oil Jethro Stevens DO Family [place] [id number] I spent 35-45 minutes reviewing this patients [...] provider listed above.) documented in this encounter Nursing Notes * Daria Zimmerman LPN - 02/18/2021 2:35 PM EDT The patient has been properly identified by confirmation of name and date of . Chief Complaint Patient presents with • Re-Check 1 mo recheck Grave's disease. • Anxiety Would like to discuss getting refill for hydroxyzine, however, pt states med does not seem as effective as initial. Pt has had recent family stressors. 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
--- OUTSIDE RECORDS SUMMARY | 2023-08-25 07:42 | External Medical Summary | Summary of Care ---
Author Name Unknown Organization [facility] Address [place] [address] Care Team Providers Care Seed Potato Cutter Name Role Phone Hood Issa MD Primary Care Provide r Encounter Details Date Type Department Care Team Description 01/22/2021 Orders Only Family Practice [facility] [address] [facility] [place] [address] Hood Issa MD [address] [place] [address] [facility] [place] [address] Allergies Active Allergy Reactions Severity Noted Date Comments Pollen 05/29/2013 Peanut Oil 05/29/2013 documented as of this encounter (statuses as of 01/22/2021) Medications Medication Sig Dispensed Refills Start Date [...] as of this encounter (statuses as of 01/22/2021) Active Problems Problem Noted Date Other allergic rhinitis 07/30/2001 Overview: ICD-10 update of inactive term Asthma with severity to be determined Overview: ICD-10 update of inactive term ATTN DEFIC NONHYPERACT 01/24/2000 EXT ASTHMA W-O STAT ASTH Dysmenorrhea documented as of this encounter (statuses as of 01/22/2021) Resolved Problems Problem Noted Date Resolved Date [...] as of this encounter (statuses as of 01/22/2021) Immunizations Name Administration Dates Next Due DT [...] Visit Family Medicine Jethro Stevens, [address] [place] [address] 04/08/2021 Telemedicine Endocrinology Francis Clark, KIRSTEN [address] [place] [address] Health Maintenance Due Date Last [...] Procedure Name Priority Date/Time Associated Diagnosis Comments TSH Routine 01/20/2021 documented in this encounter Results * TSH (01/20/2021) TSH - OUTSIDE LAB 0.01(A) 0.40 - 4.50 MIU/L OUTSI DE LAB (SEE SCANNED REPORT) Specimen Blood - Venous blood specime n (specimen) Narrative Performed At OUTSIDE LAB (SEE SCANNED REPORT) documented in this encounter Advance Directives Documents on File Type Date Recorded Patient Customer Technical Services Manager Expl 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 Advanced Directive Advanced Directive
--- OUTSIDE RECORDS SUMMARY | 2023-08-25 07:43 | External Medical Summary | Summary of Care ---
Author Name Unknown Organization [place] [address] Care Team Providers Care Riffler Tender Name Role Phone Hood Issa MD Primary Care Provide r Reason for Visit * Reason Onset Date Comments Ask-A-Doc Patient Message 12/22/2020 Encounter Details Date Type Department Care Team Description 12/22/2020 Telephone Family Practice [facility] [address] [place] [address] Hood Issa MD [address] [place] [address] [phone] Ask-A-Doc Patient Message Allergies Active Allergy Reactions Severity Noted Date Comments Pollen 05/29/2013 Peanut Oil 05/29/2013 documented as of this encounter (statuses as of 12/25/2020) Medications Medication Sig Dispensed Refills Start Date [...] for Anxiety. 40 Tab 2 11/10/2020 Active documented as of this encounter (statuses as of 12/25/2020) Active Problems Problem Noted Date Other allergic rhinitis 07/30/2001 Overview: ICD-10 update of inactive term Asthma with severity to be determined Overview: ICD-10 update of inactive term ATTN DEFIC NONHYPERACT 01/24/2000 EXT ASTHMA W-O STAT ASTH Dysmenorrhea documented as of this encounter (statuses as of 12/25/2020) Resolved Problems Problem Noted Date Resolved Date [...] as of this encounter (statuses as of 12/25/2020) Immunizations Name Administration Dates Next Due DT [...] Office Visit Family Medicine Jethro Stevens, [address] [facility] [place] [address] [phone] 03/25/2021 Office Visit Family Medicine Hood Issa MD [address] [place] [address] [phone] Health Maintenance Due Date Last Done Comments [...] Documents on File Type Date Recorded Patient Management Analyst Expl 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
--- OUTSIDE RECORDS SUMMARY | 2023-08-25 07:43 | External Medical Summary ---
Author Name Unknown Organization K01:[facility], [address] [place] [address] Laboratory Report Ordering Provider Test Date Status SARA RUIZ PAC 08/29/2013 13:50:00-040 0 Final Obs # Observation Date Value ABNL Reference Status Pe rforming Location 1 specimen 08/29/2013 13:57-0400 CLEAN CATCH URINE Final 2 result 08/30/2013 17:30-0400 LESS THAN 10,000 COLONIES/ML 1 COLONY TYPE Final 3 report status 08/30/2013 17:30-0400 08/30/2013 FINAL Final
--- OUTSIDE RECORDS SUMMARY | 2023-08-25 07:43 | External Medical Summary | Summary of Care ---
Author Name Unknown Organization [facility] Address [place] [address] Care Team Providers Care Pumper Head Name Role Phone Hood Issa MD Primary Care Provide r Reason for Visit * Reason Onset Date Comments Fax 01/12/2021 Encounter Details Date Type Department Care Team Description 01/12/2021 Telephone Family Practice [facility] [address] [place] [address] Hood Issa MD [address] [facility] [place] [address] [phone] Fax Allergies Active Allergy Reactions Severity Noted Date Comments Pollen 05/29/2013 Peanut Oil 05/29/2013 documented as of this encounter (statuses as of 01/12/2021) Medications Medication Sig Dispensed Refills Start Date [...] as of this encounter (statuses as of 01/12/2021) Active Problems Problem Noted Date Other allergic rhinitis 07/30/2001 Overview: ICD-10 update of inactive term Asthma with severity to be determined Overview: ICD-10 update of inactive term ATTN DEFIC NONHYPERACT 01/24/2000 EXT ASTHMA W-O STAT ASTH Dysmenorrhea documented as of this encounter (statuses as of 01/12/2021) Resolved Problems Problem Noted Date Resolved Date [...] as of this encounter (statuses as of 01/12/2021) Immunizations Name Administration Dates Next Due DT [...] encounter Miscellaneous Notes * Telephone Encounter - Margareth Bello LPN - 01/12/2021 5:24 PM EST Thyroid labs faxed, pt aware. * Telephone Encounter - Palma [place] OSA - 01/12/2021 12:57 PM EST An order was requested for this patient. Name of Requesting Provider: patient Order Requested: Lab work Diagnosis/Reason for Request: routine Does the order need to be faxed somewhere? If so, where?: yes Fax Number, if applicable: [phone] Call Back Number: [phone] documented in this encounter Plan of Treatment Upcoming Encounters Date Type Specialty Care Team Description 01/21/2021 [facility]medicine [facility] [address] [facility] [address] 02/18/2021 [facility] Stevens[facility] [address] [facility] [address] Health Maintenance Due Date Last Done Comments [...] Documents on File Type Date Recorded Patient Aboriginal Ceremonial Celebrant Expl 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 Advanced Directive
--- OUTSIDE RECORDS SUMMARY | 2023-08-25 07:43 | External Medical Summary | Summary of Care ---
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 Name Role Phone Hood Issa MD Primary Care Provide r Reason for Visit * Reason Onset Date Comments Med Request 10/07/2020 Encounter Details Date Type Department Care Team Description 10/07/2020 Telephone Family Practice [facility] [address] [place] [address] Hood Issa MD 132 [facility] [place] [address] [phone] Med Request Allergies Active Allergy Reactions Severity Noted Date Comments Pollen 05/29/2013 Peanut Oil 05/29/2013 documented as of this encounter (statuses as of 10/07/2020) Medications Medication Sig Dispensed Refills Start Date End Date Status ALBUTEROL SULFATE HFA 108 (90 BASE) MCG/ACT IN AERS as needed 0 Active ZANTAC 150 MG PO TABS as needed 0 Act keon IBUPROFEN 600 MG PO TABS None Entered 0 Active MICROGESTIN FE 1.5/30 1.5-30 MG-MCG PO TABSIndications:Routi ne follow-up 1 TABLET DAILY 3 Package 4 11/12/2013 Active SUMATRIPTAN SUCCINATE 50 MG PO TABSIndications:Migra ine with intractable migraine 1 TABLET 1 TIME ONLY,REPEAT AFTER 2 HR NEEDED 30 Tab 3 11/12/2013 Active documented as of this encounter (statuses as of 10/07/2020) Active Problems Problem Noted Date Other allergic rhinitis 07/30/2001 Overview: ICD-10 update of inactive term Asthma with severity to be determined Overview: ICD-10 update of inactive term ATTN DEFIC NONHYPERACT 01/24/2000 EXT ASTHMA W-O STAT ASTH Dysmenorrhea documented as of this encounter (statuses as of 10/07/2020) Resolved Problems Problem Noted Date Resolved Date [...] as of this encounter (statuses as of 10/07/2020) Immunizations Name Administration Dates Next Due DT - Diptheria/Tetanus (PEDS) 01/24/1991, 987,03/21/1986 DTP Vaccine 01/23/1986,1985 Haemophilus B (HIB) 03/30/1989 Hepatitis B, 0-19 yrs 02/25/1997,09/11/1996,06/20 MMR - Measles/Mumps/Rubella Vaccine 01/24/1991,1 12/05/1986 OPV - Polio Virus Vaccine (Oral) 991,09/26/1986,01/23/1986,1985 Seasonal Influenza, Trivalen t, with Preserve, 3yr [...] encounter Miscellaneous Notes * Telephone Encounter - Anitha Salas LPN - 10/07/2020 3:49 PM EST Pt has been notified of message below and lab order has been mailed to pt. * Telephone Encounter - Hood Issa MD - 10/07/2020 12:44 PM EST i would not start med TSH is low, suggested overactive thyroid T4 is normal, suggesting normal thyroid function I would hold off on thyroid meds for now I would recheck the thyroid in 2-3 months to see what trend develops Nursing, pls mail lab order to pt * Telephone Encounter - Darlene Jurado OSA - 10/07/2020 12:38 PM EST Please review labs for pts's thyroid including under the accidental pt MRN. Pt said that she has been feeling better this week since starting medication. But if thyroid medication is needed she wouldlike to start it. Please let me know if medication is needed documented in this encounter Plan of Treatment Upcoming Encounters Date Type Specialty Care Team Description 03/25/2021 Office Visit Family Medicine Hood Issa MD [address] [place] [address] [place] [address] [phone] Scheduled Orders Name Type Priority Associated Diagnoses Orde r Schedule TSH WITH FREE T4 IF INDICATED Lab Routine Abnormal thyroid blood test Ordered: 10/07/2020 Health Maintenance Due Date Last Done Comments Pneumococcal Vaccine: Pediatrics (0 to 5 Years) and At-Risk Patients (6 to 64 Years) (1 of 1 - PPSV23) 1991 DTaP,Tdap,and Td Vaccines (6 - Tdap) 1996 07/04/1997, 01/24/1991, 04/03/1987, Additional history exists PAP SMEAR-EVERY 3 YRS,AGES 21-65 2006 *ASTHMA CONTROL TEST IN LAST 6 MONTHS-ADULT 11/21/2014 *DEPRESSION SCREENING,ANNUAL FOR PTS 12 AND OVER 12/13/2014 Influenza Vaccine (FLU shot) (#1) 2020 08/08/2013 MENINGOCOCCAL (MENACTRA/MENVEO) Aged Out No longer eligible based on patient's age to complete this topic documented as of this encounter Implants Not on filedocumented as of this encounter Visit Diagnoses Diagnosis Abnormal thyroid blood test- Primary Nonspecific abnormal results of thyroid function study documented in this encounter Advance Directives Documents on File Type Date Recorded Patient Screen Tender Expl anation Advanced Directive Advanced Directive
--- OUTSIDE RECORDS SUMMARY | 2023-08-25 07:43 | External Medical Summary | Summary of Care ---
Author Name Unknown Organization [place] [address] Care Team Providers Care Membership Assistant Name Role Phone Hood Issa MD Primary Care Provide r Encounter Details Date Type Department Care Team Description 10/06/2020 Orders Only Family Practice [facility] 132 [facility] [place] [address] Hood Issa MD 132 [facility] [place] [address] Allergies Active Allergy Reactions Severity Noted Date Comments Pollen 05/29/2013 Peanut Oil 05/29/2013 documented as of this encounter (statuses as of 10/06/2020) Medications Medication Sig Dispensed Refills Start Date [...] as of this encounter (statuses as of 10/06/2020) Active Problems Problem Noted Date Other allergic rhinitis 07/30/2001 Overview: ICD-10 update of inactive term Asthma with severity to be determined Overview: ICD-10 update of inactive term ATTN DEFIC NONHYPERACT 01/24/2000 EXT ASTHMA W-O STAT ASTH Dysmenorrhea documented as of this encounter (statuses as of 10/06/2020) Resolved Problems Problem Noted Date Resolved Date [...] as of this encounter (statuses as of 10/06/2020) Immunizations Name Administration Dates Next Due DT [...] Family Medicine Hood Issa MD [address] [place] [address] [phone] Health Maintenance Due Date Last Done Comments [...] Procedure Name Priority Date/Time Associated Diagnosis Comments CHEMISTRY-OUTSIDE Routine 09/23/2020 TSH Routine 09/23/2020 documented in this encounter Results * TSH (09/23/2020) TSH - OUTSIDE LAB <0.01 0.40 - 4.50 MIU/L OUTSI DE LAB (SEE SCANNED REPORT) Specimen Narrative Performed At OUTSIDE LAB (SEE SCANNED REPORT) * CHEMISTRY-OUTSIDE (09/23/2020) CREATININE-OUTSIDE LAB 0.63 0.50 - 1.10 MG/DL OUTSIDE LAB (SEE SCANNED REPORT) EGFR-OUTSIDE LAB >60 >60 ML/MIN OUTSIDE LAB (SEE SCANNED REPORT) POTASSIUM-OUTSIDE LAB 4.3 3.5 - 5.3 MMOL/L OUTSIDE LAB (SEE SCANNED REPORT) GLUCOSE-OUTSIDE LAB 82 65 - 139 MG/DL OUTSIDE LAB (SEE SCANNED REPORT) HOURS FASTING OUTSIDE LAB (S EE SCANNED REPORT) TRIGLYCERIDES-OUTSIDE LAB OUTSIDE LAB (SEE SCANNED REPORT) CHOLESTEROL-OUTSIDE LAB OUTSIDE LAB (SEE SCANNED REPORT) HDL-OUTSIDE LAB OUTSIDE LAB (SEE SCANNED REPORT) CHOL/HDL RATIO-OUTSIDE LAB OUTSIDE LAB (SEE SCANNED REPORT) LDL (CALCULATED)-OUTSIDE LAB OUTSIDE LAB (SEE SCANNED REPORT) LDL (DIRECT MEASURE)-OUTSIDE LAB OUTSIDE LAB (SEE SCANNED REPORT) HEMOGLOBIN, [id number] LAB 5.2 <5.7 % OUTSIDE LAB (SEE SCANNED REPORT) PHOSPHORUS-OUTSIDE LAB OUTSIDE LAB (SEE SCANNED REPORT) PTH-OUTSIDE LAB OUTSIDE LAB (SEE SCANNED REPORT) MICROALBUMIN RATIO-OUTSIDE LAB OUTSIDE LAB (SEE SCANNED REPORT) PROTEIN, UA-OUTSIDE LAB OUTSIDE LAB (SEE SCANNED REPORT) HEMOGLOBIN-OUTSIDE LAB 13.4 11.7 - 15.5 G/DL OUTSIDE LAB (SEE SCANNED REPORT) CHEMISTRY COMMENT-OUTSIDE LAB Comment:SEE SCAN: CMP, HA1C, TSH, FT4, CBCD, ISULIN OUTSIDE LAB (SEE SCANNED REPORT) Specimen Narrative Performed At OUTSIDE LAB (SEE SCANNED REPORT) documented in this encounter Advance Directives Documents on File Type Date Recorded Patient Respiratory Therapy Instructor Expl anation Advanced Directive Advanced Directive
--- OUTSIDE RECORDS SUMMARY | 2023-08-25 07:43 | External Medical Summary ---
CHEMISTRY STUDIES~Glucose, 1-hr (post 50 g PO) Created on: July 24, 2013 ASHLEIGH SAMS : 1985 Sex: Female Author Name Unknown Organization [id number]:[facility] [address] [place] [address] Laboratory Report Ordering Provider Test Date Status SARA GRIMES 07/24/2013 11:01:00-040 0 Final Obs # Observation Date Value ABNL Reference Status Pe rforming Location 1 Glucose, 1-hr (post 50 g PO) 07/24/2013 12:49-0400 110 70-129 mg/dL Final
--- OUTSIDE RECORDS SUMMARY | 2023-08-25 07:43 | External Medical Summary ---
Author Name Unknown Organization K01:[facility], [address] [address] Laboratory Report Ordering Provider Test Date Status SARA RUIZ PAC 05/29/2013 09:30:00-040 0 Final Obs # Observation Date Value ABNL Reference Status Pe rforming Location 1 specimen 05/29/2013 10:28-0400 CLEAN CATCH URINE Final 2 result 05/31/2013 09:39-0400 MULTIPLE MAXI SUGGESTS CONTAMINATION Final 3 report status 05/31/2013 09:39-0400 05/31/2013 FINAL Final
--- OUTSIDE RECORDS SUMMARY | 2023-08-25 07:43 | External Medical Summary | Summary of Care ---
Author Name Unknown Organization [facility] [place] [address] Care Team Providers Care Soap Mixer Name Role Phone Hood Issa MD Primary Care Provide r Encounter Details Date Type Department Care Team Description 12/17/2020 Scan Encounter Unspecified Department <No scans attached> Allergies Active Allergy Reactions Severity Noted Date Comments Pollen 05/29/2013 Peanut Oil 05/29/2013 documented as of this encounter (statuses as of 12/18/2020) Medications Medication Sig Dispensed Refills Start Date [...] as of this encounter (statuses as of 12/18/2020) Active Problems Problem Noted Date Other allergic rhinitis 07/30/2001 Overview: ICD-10 update of inactive term Asthma with severity to be determined Overview: ICD-10 update of inactive term ATTN DEFIC NONHYPERACT 01/24/2000 EXT ASTHMA W-O STAT ASTH Dysmenorrhea documented as of this encounter (statuses as of 12/18/2020) Resolved Problems Problem Noted Date Resolved Date [...] as of this encounter (statuses as of 12/18/2020) Immunizations Name Administration Dates Next Due DT [...] Medicine Hood Issa MD [address] [place] [address] [phone] Health Maintenance Due Date Last Done Comments [...] Documents on File Type Date Recorded Patient Teacher Of The Hearing Impaired Expl anation Advanced Directive Advanced Directive Advanced Directive Advanced Directive Advanced Directive Advanced Directive
--- OUTSIDE RECORDS SUMMARY | 2023-08-25 07:43 | External Medical Summary ---
Author Name Unknown Organization K01:[facility], [address] [address] Laboratory Report Ordering Provider Test Date Status MARK KYLE 09/25/2013 14:54:00-0500 Final Obs # Observation Date Value ABNL Reference Status Pe rforming Location 1 Source 09/25/2013 14:47-0500 VAGINAL Final RECTAL
--- OUTSIDE RECORDS SUMMARY | 2023-08-25 07:43 | External Medical Summary | Summary of Care ---
Author Name Unknown Organization [place] [address] Care Team Providers Care Senior Production Supervisor Name Role Phone Hood Davis MD Primary Care Provide r Reason for Visit * Reason Comments Hyperthyroidism Thyroid Nodule * Evaluate & Treat - Unlimited Visits (Within 30 days (routine)) Status Reason Specialty Diagnoses / Procedures Referred By Contact Referred To Contact Pending Review Specialty Services Required Endocrinology/[place] bolism / Endocrinology Diagnoses Hyperthyroidism Hood Davis MD [address] [place] [address] [place] [address] Encounter Details Date Type Department Care Team Description 01/21/2021 [facility], [place] [address] [place] [address] Francis Clark CRNP [address] [place] [address] Graves disease*; Thyroid nodule; Family history of diabetes mellitus Allergies Active Allergy Reactions Severity Noted Date Comments Pollen 05/29/2013 Peanut Oil 05/29/2013 documented as of this encounter (statuses as of 01/21/2021) Medications Medication Sig Dispensed Refills Start Date [...] as of this encounter (statuses as of 01/21/2021) Active Problems Problem Noted Date Other allergic rhinitis 07/30/2001 Overview: ICD-10 update of inactive term Asthma with severity to be determined Overview: ICD-10 update of inactive term ATTN DEFIC NONHYPERACT 01/24/2000 EXT ASTHMA W-O STAT ASTH Dysmenorrhea documented as of this encounter (statuses as of 01/21/2021) Resolved Problems Problem Noted Date Resolved Date [...] as of this encounter (statuses as of 01/21/2021) Immunizations Name Administration Dates Next Due DT [...] Progress Notes * Francis Clark CRNP - 01/21/2021 11:00 AM EST I was in a hospital or clinic location. After connecting through televideo, patient was verified with two unique identifiers. Patient (or authorized legal operations representative) was then informed that this was a Telemedicine visit and being conducted confidentially over secure lines. Methods to assure confidentiality were taken. Patient acknowledged consent and understanding of privacy and security of the Telemedicine visit. The patient agreed to participate. This 35 year old female, Starr Dove, is seen today at the request of Hood Davis MD for evaluation and treatment of Graves disease Thyroid history: Seen by jack winder in the past advised he had mild Graves disease, no meds- had uptake and scan d/t abnormal labs, fatigue, mood changes, and weight fluctuation - Normal results Saw PCP - complaints of anxiety and weight issues - started on Methimazole last month + propranololdue to supressed TSH and elevated FT3/FT4; Positive TSI = Graves History of radiation exposure: Denies Family history of thyroid disorders: Hypothyroidism - aunt, cousin Current Regimen: Methimazole 15mg daily She takes it first thing in the morning and without any missed doses. Current Complaints: Patient reports overall feeling better since starting methimazole in beta- eboni. Was previously experiencing fatigue, weight gain, heart palpitations, and tremors. Reports that these have overall resolved except for the weight gain. She denies any significant anterior neck pain, difficulty breathing, or changes in voice. Reports some minor difficulty with swallowing depending on what she is eating, no choking. She currently denies any heart palpitations, or tremors. (+) Changes in energy level - fatigued, however improved (+) Changes in weight - [...] Tobacco Use • Smoking status: Never Smoker Substance Use Topics • Alcohol use: No [...] medical records from PCP, outside lab records Labs: Ref. Range 09/23/2020 00:00 09/23/2020 00:00 12/11/2020 00:00 12/16/2020 00:00 TSH - OUTSIDE LAB Latest Ref Range: 0.40 - 4.50 miu/l <0.01 (L) <0.01 0.01 (A) <0.01 (A) T4, FREE - OUTSIDE LAB Latest Ref Range: 0.8 - 1.8 NG/DL 1.3 Imaging: NM thyroid scan did not show [...] DM Patient started on methimazole and beta-eboni approximately one month ago. This due to suppressedTSH with elevated free T3 and free T4, and positive TSI. Overall her symptoms of tremors and palpitations have resolved since being on beta-eboni. Patient states that she had follow-up lab work completed at [facility]. She will have these forwarded to me for review. Placed monthly standing ordersfor TSH, free T3, free T4 (cc PCP). This to monitor and titrate her methimazole. She will have these labs drawn at a [facility] related lab [facility] in the future. Will also have her obtain hepatic function and CBC. Reviewed reportable side effects from methimazole. Will continue her on her current dosing of methimazole until further review of recent labs. Also discussed definitive options in terms of her Graves disease. She wishes to continue on methimazole for now. She denies any eye issues currently. Small subcentimer nodule noted on recent U/S - can monitor Q1-2 years or sooner if she experiences worsening compressive neck symptoms. Her other main complaint is weight gain despite being hyperthyroid. She has a family history diabetes. Will draw an A1c and insulin level. - Methimazole 15mg daily - Lab work: TSH, FT3, FT4 monthly; Hepatic function, CBC; Insulin, A1c Advised to avoid caffeine, pseudoephedrine and other [...] nerve damage, and general anesthesia High cost Follow-up: Return in about 2 months (around 03/23/2021). | I spent a total of 60 minutes caring for this patient including reviewing the chart, gathering the history, performing visual inspection, ordering and reconciling medications, ordering tests, performing counseling, and coordinating care. [facility], [place] [address] [facility] [address] cc: PCP: HOOD DAVIS [address] [facility] [place] [address] [phone] documented in this encounter Plan of Treatment Upcoming Encounters Date Type Specialty Care Team Description 02/18/2021 Office Visit Family Medicine [facility] Stevens, 132 [facility] [place] [address] Scheduled Orders Name Type Priority Associated Diagnoses Orde r Schedule HEMOGLOBIN A1C Lab Routine Family history of diabetes mellitus Ordered: 01/21/2021 INSULIN Lab Routine Family history of diabetes mellitus Ordered: 01/21/2021 T3, FREE Lab Routine Graves disease Every Month for 12 Occurrences starting 01/21/2021 until 01/21/2022 T4, FREE Lab Routine Graves disease Every Month for 12 Occurrences starting 01/21/2021 until 01/21/2022 TSH Lab Routine Graves disease Every Month for 12 Occurrences starting 01/21/2021 until 01/21/2022 CBC WITH WBC DIFFERENTIAL Lab Routine Graves disease Ordered: 01/21/2021 HEPATIC FUNCTION PANEL Lab Routine Graves disease Ordered: 01/21/2021 Health Maintenance Due Date Last Done Comments [...] or storm Thyroid nodule Nontoxic uninodular goiter Family history of diabetes mellitus documented in this encounter Advance Directives Documents on File Type Date Recorded Patient Senior Product Development Manager Expl 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 Advanced Directive"
--- OUTSIDE RECORDS SUMMARY | 2023-08-25 07:43 | External Medical Summary | Summary of Care ---
Author Name Unknown Organization [place] [address] Care Team Providers Care Dry Cleaner Helper Name Role Phone Hood Issa MD Primary Care Provide r Reason for Visit * Reason Comments Follow Up Encounter Details Date Type Department Care Team Description 12/15/2020 Telemedicine Family Practice [facility] [address] [place] [address] Hood Issa MD 132 [facility] [place] [address] Hyperthyroidism* Allergies Active Allergy Reactions Severity Noted Date Comments Pollen 05/29/2013 Peanut Oil 05/29/2013 documented as of this encounter (statuses as of 12/15/2020) Medications Medication Sig Dispensed Refills Start Date End Date Status ALBUTEROL SULFATE HFA 108 (90 BASE) MCG/ACT IN AERS as needed 0 Active ZANTAC 150 MG PO TABS as needed 0 Act keon IBUPROFEN 600 MG PO TABS None Entered 0 Active MICROGESTIN FE .5 1.5-30 MG-MCG PO TABSIndications:Routi ne follow-up 1 [...] as of this encounter (statuses as of 12/15/2020) Active Problems Problem Noted Date Other allergic rhinitis 07/30/2001 Overview: ICD-10 update of inactive term Asthma with severity to be determined Overview: ICD-10 update of inactive term ATTN DEFIC NONHYPERACT 01/24/2000 EXT ASTHMA W-O STAT ASTH Dysmenorrhea documented as of this encounter (statuses as of 12/15/2020) Resolved Problems Problem Noted Date Resolved Date [...] as of this encounter (statuses as of 12/15/2020) Immunizations Name Administration Dates Next Due DT [...] as of this encounter Progress Notes * Hood Issa MD - 12/15/2020 2:32 PM EST . After connecting to the patient via telephone, the patient was identified by name and date of . Patient was then informed that this was a telephone call only visit. The patient agreed to participate. Visit Disposition: Routine follow-up Total call duration was 13 minutes. HPI: here to review labs Some insomnia + anixety Mother recently Pt is cleaning out her house Abn thryoid labs Per pt, she had an iodine scan done elsewhere No palpiations Patient Active Problem List Diagnosis Code • Asthma with severity to be determined J45.909 • ATTN DEFIC NONHYPERACT F98.8 • Other allergic rhinitis J30.89 • EXT ASTHMA W-O STAT ASTH J45.909 • Dysmenorrhea N94.6 Current Outpatient Medications Medication Sig Dispense Refill hydrOXYzine HCl 25 MG Oral Tablet Take 1 Tab by mouth every 6 hours as needed for Anxiety. 40 Tab 2 MICROGESTIN FE 1.5/30 1.5-30 MG-MCG PO TABS 1 TABLET DAILY 3 Package 4 SUMATRIPTAN SUCCINATE 50 MG PO TABS 1 TABLET 1 TIME ONLY,REPEAT AFTER 2 HR NEEDED 30 Tab 3 IBUPROFEN 600 MG PO TABS None Entered ZANTAC 150 MG PO TABS as needed ALBUTEROL SULFATE HFA 108 (90 BASE) MCG/ACT IN AERS as needed Medication list reviewed and updated, if needed in EHR PMH, FH, SH reviewed and updated, if needed in EHR Review of Systems: No nausea, vomiting or diarrhea. No chest pain or shortness of breath, No fatigue. No fevers, chillor night sweats. All other ROS examined in detail and are negative except as documented in HPI. VS and PE deferred d/t telephone visit Hyperthyroidism (Primary) - TSH - T3, FREE - T4, FREE - US HEAD AND NECK - TSI(THYROID STIMULATING IMMUNOGLOBULIN) RTC prn documented in this encounter Plan of Treatment Upcoming Encounters Date Type Specialty Care Team Description 12/16/2020 Imaging Radiology 03/25/2021 Office Visit Family Medicine Hood Issa MD [address] [place] [address] [place] [address] [phone] Scheduled Orders Name Type Priority Associated Diagnoses Orde r Schedule TSH Lab Routine Hyperthyroidism Ordered: 12/15/2020 T3, FREE Lab Routine Hyperthyroidism Ordered: 12/15/2020 T4, FREE Lab Routine Hyperthyroidism Ordered: 12/15/2020 HEAD AND NECK Medical Imaging Routine Hyperthyroidism Ordered: 12/15/2020 TSI(THYROID STIMULATING IMMUNOGLOBULIN) Lab Routine Hyperthyroidism Ordered: 12/15/2020 Health Maintenance Due Date Last Done Comments [...] Documents on File Type Date Recorded Patient Aerotriangulation Specialist Expl anation Advanced Directive Advanced Directive Advanced Directive Advanced Directive Advanced Directive Advanced Directive
--- OUTSIDE RECORDS SUMMARY | 2023-08-25 07:43 | External Medical Summary | Summary of Care ---
Author Name Unknown Organization [place] [address] Care Team Providers Care Customer Insight Analyst Name Role Phone Hood Issa MD Primary Care Provide r Reason for Referral * Precert (Routine) Status Reason Specialty Diagnoses / Procedures Referred By Contact Referred To Contact Pending Review Precert Sleep Disorders Diagnoses EDE (obstructive sleep apnea) Procedures SLEEP STUDY, W/ CPAP (TREATMENT SETTINGS) Dai Stevens DO [address] [address] * Precert (Routine) Status Reason Specialty Diagnoses / Procedures Referred By Contact Referred To Contact Pending Review Precert Sleep Disorders Diagnoses EDE (obstructive sleep apnea) Procedures SLEEP STUDY, W/O CPAP Dai Stevens DO [address] [address] Reason for Visit * Reason Onset Date Comments Other 10/05/2020 Correct Chart Encounter Details Date Type Department Care Team Description 10/05/2020 Telephone Family [facility] [address] [address] Hood Issa MD [address] [address] [phone] Other (Correct Chart) Allergies Active Allergy Reactions Severity Noted Date Comments Pollen 05/29/2013 Peanut Oil 05/29/2013 documented as of this encounter (statuses as of 10/09/2020) Medications Medication Sig Dispensed Refills Start Date End Date Status ALBUTEROL SULFATE HFA 108 (90 BASE) MCG/ACT IN AERS as needed 0 Active ZANTAC 150 MG PO TABS as needed 0 Act keon IBUPROFEN 600 MG PO TABS None Entered 0 Active MICROGESTIN FE .5 1.5-30 MG-MCG PO TABSIndications:Henrietta rodriguez follow-up 1 TABLET DAILY 3 Package 4 11/12/2013 Active SUMATRIPTAN SUCCINATE 50 MG PO TABSIndications:Migra ine with intractable migraine 1 TABLET 1 TIME ONLY,REPEAT AFTER 2 HR NEEDED 30 Tab 3 11/12/2013 Active documented as of this encounter (statuses as of 10/09/2020) Active Problems Problem Noted Date Other allergic rhinitis 07/30/2001 Overview: ICD-10 update of inactive term Asthma with severity to be determined Overview: ICD-10 update of inactive term ATTN DEFIC NONHYPERACT 01/24/2000 EXT ASTHMA W-O STAT ASTH Dysmenorrhea documented as of this encounter (statuses as of 10/09/2020) Resolved Problems Problem Noted Date Resolved Date [...] as of this encounter (statuses as of 10/09/2020) Immunizations Name Administration Dates Next Due DT [...] encounter Miscellaneous Notes * Telephone Encounter - Angie Loomis OSA - 10/05/2020 2:09 PM EST This is the correct chart for our patient. Please reorder any lab orders, referrals, sleep study orders, and/or medications that you may have placed in the previous chart. Our [employer] corrections team is working on getting all other documents switched to this chart. Please feel free to reach out to me if you have any questions. Thank you. documented in this encounter Plan of Treatment Upcoming Encounters Date Type Specialty Care Team Description 03/25/2021 Office Visit Family Medicine Hood Issa MD [address] [facility] [place] [address] Scheduled Orders Name Type Priority Associated Diagnoses Orde r Schedule FERRITIN Lab Routine Iron metabolism disease Expected: 11/08/2020, Expires: 10/09/2021 IRON SCREEN, INCLUDING TIBC Lab Routine Iron metabolism disease Expected: 11/08/2020, Expires: 10/09/2021 SLEEP STUDY, W/O CPAP Procedures Routine EDE (obstructive sleep apnea) Ordered: 10/09/2020 SLEEP STUDY, W/ CPAP (TREATMENT SETTINGS) Procedures Routine EDE (obstructive sleep apnea) Ordered: 10/09/2020 COVID-19 Lab Routine Encounter for preprocedure screening laboratory testing for COVID-19 Expected: 11/08/2020, Expires: 04/08/2021 Health Maintenance Due Date Last Done Comments [...] as of this encounter Visit Diagnoses Diagnosis Encounter for preprocedure screening laboratory testing for COVID-19- 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
--- OUTSIDE RECORDS SUMMARY | 2023-08-25 07:43 | External Medical Summary | Summary of Care ---
Author Name Unknown Organization [place] [address] Care Team Providers Care Lead Technical Architect Name Role Phone Hood Issa MD Primary Care Provide r Reason for Visit * Reason Onset Date Comments Abnormal Test Results 12/14/2020 Encounter Details Date Type Department Care Team Description 12/14/2020 Telephone Family Practice [facility] [address] [address] Hood Issa MD [address] [place] [address] [phone] Abnormal Test Results Allergies Active Allergy Reactions [...] Telephone Encounter - Linda Stevens OSA - 12/15/2020 7:56 AM EST appt scheduled * Telephone Encounter - Palma Villanueva LPN - 12/14/2020 7:56 PM EST Called pt, aware. Scheduling, please assist with appt * Telephone Encounter - Hood sIsa MD - 12/14/2020 6:56 PM EST Nursing, please call and inform pt. Labs show overactive thryoid Pt needs OV/telehealth to determine the next step documented in this encounter Plan of Treatment Upcoming Encounters Date Type Specialty Care Team Description 12/15/2020 Telemedicine Family Medicine Hood Issa MD [address] [address] [phone] Arrived 03/25/2021 Office Visit Family Medicine Hood Issa MD [address] [address] [phone] Health Maintenance Due Date Last Done Comments [...] Documents on File Type Date Recorded Patient Inspector Metal Fabricating Expl anation Advanced Directive Advanced Directive Advanced Directive Advanced Directive Advanced Directive
--- OUTSIDE RECORDS SUMMARY | 2023-08-25 07:43 | External Medical Summary | Summary of Care ---
Author Name Unknown Organization [place] [address] Care Team Providers Care Clinical Data Abstractor Name Role Phone Hood Issa MD Primary Care Provide r Encounter Details Date Type Department Care Team Description 12/22/2020 Orders Only Family Practice [facility] [address] [place] [address] Hood Issa MD 132 [facility] [place] [address] Allergies Active Allergy Reactions Severity Noted Date Comments Pollen 05/29/2013 Peanut Oil 05/29/2013 documented as of this encounter (statuses as of 12/22/2020) Medications Medication Sig Dispensed Refills Start Date [...] as of this encounter (statuses as of 12/22/2020) Active Problems Problem Noted Date Other allergic rhinitis 07/30/2001 Overview: ICD-10 update of inactive term Asthma with severity to be determined Overview: ICD-10 update of inactive term ATTN DEFIC NONHYPERACT 01/24/2000 EXT ASTHMA W-O STAT ASTH Dysmenorrhea documented as of this encounter (statuses as of 12/22/2020) Resolved Problems Problem Noted Date Resolved Date [...] as of this encounter (statuses as of 12/22/2020) Immunizations Name Administration Dates Next Due DT [...] Medicine Hood Issa MD [address] [address] [phone] Health Maintenance Due Date Last Done Comments [...] Documents on File Type Date Recorded Patient Blanking Press Operator Expl anation Advanced Directive Advanced Directive Advanced Directive Advanced Directive Advanced Directive Advanced Directive
--- OUTSIDE RECORDS SUMMARY | 2023-08-25 07:43 | External Medical Summary | Summary of Care ---
Author Name Unknown Organization [place] [address] Care Team Providers Care Esthetician/Spa Coordinator Name Role Phone Hood Issa MD Primary Care Provide r Reason for Visit * Reason Onset Date Comments Medication Refill 11/10/2020 Encounter Details Date Type Department Care Team Description 11/10/2020 Telephone Family Practice [facility] [address] [place] [address] Hood Issa MD [address] [facility] [place] [address] [phone] Medication Refill Allergies Active Allergy Reactions Severity Noted Date Comments Pollen 05/29/2013 Peanut Oil 05/29/2013 documented as of this encounter (statuses as of 11/10/2020) Medications Medication Sig Dispensed Refills Start Date [...] as of this encounter (statuses as of 11/10/2020) Active Problems Problem Noted Date Other allergic rhinitis 07/30/2001 Overview: ICD-10 update of inactive term Asthma with severity to be determined Overview: ICD-10 update of inactive term ATTN DEFIC NONHYPERACT 01/24/2000 EXT ASTHMA W-O STAT ASTH Dysmenorrhea documented as of this encounter (statuses as of 11/10/2020) Resolved Problems Problem Noted Date Resolved Date [...] as of this encounter (statuses as of 11/10/2020) Immunizations Name Administration Dates Next Due DT [...] Telephone Encounter - Daria Zimmerman LPN - 11/10/2020 2:29 PM EST Pt notified of Rx per Dr. Issa. * Telephone Encounter - Hood Issa MD - 11/10/2020 12:53 PM EST Rx sent to [facility]. Please let pt know. * Telephone Encounter - Dolly Wheatley CPhT - 11/10/2020 9:28 AM EST Pt requesting refills for Hydroxyzone. Upon chart review, medication is listed as discontinued, with discontinuation reason as none. There was a mix up with date. Pt needs new rx sent with correct birthdate which is on this chart Please send new rx to [facility] pharmacy. Thanks, Dolly Wheatley [facility] Card Mounter [facility] 11/10/2020, 9:28 AM documented in this encounter Plan of Treatment Upcoming Encounters Date Type Specialty Care Team Description 03/25/2021 Office Visit Family Medicine Hood Issa MD [address] [place] [address] [place] [address] [phone] Health Maintenance Due Date Last Done Comments Pneumococcal Vaccine: Pediatrics (0 to 5 Years) and At-Risk Patients (6 to 64 Years) (1 of 1 - PPSV23) 1991 DTaP,Tdap,and Td Vaccines (6 - Tdap) 1996 07/04/1997, 01/24/1991, 04/03/1987, Additional history exists PAP SMEAR-EVERY 3 YRS,AGES 21-65 2006 Influenza Vaccine (FLU shot) (#1) 2020 08/08/2013 MENINGOCOCCAL (MENACTRA/MENVEO) Aged Out No longer eligible based on patient's age to complete this topic documented as of this encounter Implants Not on filedocumented as of this encounter Advance Directives Documents on File Type Date Recorded Patient Overlock Waistline Joiner Expl anation Advanced Directive Advanced Directive Advanced Directive Advanced Directive
--- OUTSIDE RECORDS SUMMARY | 2023-08-25 07:43 | External Medical Summary | Summary of Care ---
Author Name Unknown Organization [place] [address] Care Team Providers Care Mud Trucker Name Role Phone Hood Issa MD Primary Care Provide r Reason for Visit * Reason Onset Date Comments MyCode Consent 10/05/2020 Encounter Details Date Type Department Care Team Description 09/23/2020 Orders Only Outcomes Research Department [address] [place] [address] Mayelin Landers CHRA MyCode Research Other*[id number]* Allergies Active Allergy Reactions Severity Noted Date Comments Pollen 05/29/2013 Peanut Oil 05/29/2013 documented as of this encounter (statuses as of 10/05/2020) Medications Medication Sig Dispensed Refills Start Date [...] as of this encounter (statuses as of 10/05/2020) Active Problems Problem Noted Date Other allergic rhinitis 07/30/2001 Overview: ICD-10 update of inactive term Asthma with severity to be determined Overview: ICD-10 update of inactive term ATTN DEFIC NONHYPERACT 01/24/2000 EXT ASTHMA W-O STAT ASTH Dysmenorrhea documented as of this encounter (statuses as of 10/05/2020) Resolved Problems Problem Noted Date Resolved Date [...] as of this encounter (statuses as of 10/05/2020) Immunizations Name Administration Dates Next Due DT [...] as of this encounter Progress Notes * Mayelin Landers CHRA - 10/05/2020 4:16 PM EST MyCode Consent Documentation Starr Ema Dove provided consent/authorization to participate in the [employer]. documented in this encounter Plan of Treatment Upcoming Encounters Date Type Specialty Care Team Description 03/25/2021 Office Visit Family Medicine Hood Issa MD [address] [place] [address] [phone] Scheduled Orders Name Type Priority Associated Diagnoses Orde r Schedule MYCODE INITIAL ADULT Lab Routine MyCode Research Other*[id number] Expected: 10/05/2020 (Approximate), Expires: 10/25/2021 Health Maintenance Due Date Last Done Comments DTaP,Tdap,and Td Vaccines (6 - Tdap) 1996 07/04/1997, 01/24/1991, 04/03/1987, Additional history exists PAP SMEAR-EVERY 3 YRS,AGES 21-65 2006 *ASTHMA CONTROL TEST IN LAST 6 MONTHS-ADULT 11/21/2014 *DEPRESSION SCREENING,ANNUAL FOR PTS 12 AND OVER 12/13/2014 Influenza Vaccine (FLU shot) (#1) 2020 08/08/2013 MENINGOCOCCAL (MENACTRA/MENVEO) Aged Out No longer eligible based on patient's age to complete this topic Pneumococcal Vaccine: Pediatrics (0 to 5 Years) and At-Risk Patients (6 to 64 Years) Aged Out No longer eligible based on patient's age to complete this topic documented as of this encounter Implants Not on filedocumented as of this encounter Visit Diagnoses Diagnosis MyCode Research Other*[id number]- Primary documented in this encounter Advance Directives Documents on File Type Date Recorded Patient Side Framer Expl anation Advanced Directive Advanced Directive
--- OUTSIDE RECORDS SUMMARY | 2023-08-25 07:43 | External Medical Summary | Summary of Care ---
Author Name Unknown Organization [place] [address] Care Team Providers Care Dba Manager Name Role Phone Hood Issa MD Primary Care Provide r Reason for Referral * Evaluate & Treat - Unlimited Visits (Within 30 days (routine)) Status Reason Specialty Diagnoses / Procedures Referred By Contact Referred To Contact Pending Review Specialty Services Required Endocrinology/Menifee bolism / Endocrinology Diagnoses Hyperthyroidism Hood Issa MD [address] [facility] [place] [address] Electronically signed by Hood Issa MD at Reason for Visit * Reason Comments Test Results pt here to discuss t hyroid testing Encounter Details Date Type Department Care Team Description 12/25/2020 Office Visit Family [facility] [address] [place] [address] Hood Issa MD 132 [facility] [place] [address] Graves disease*; Hyperthyroidism Allergies Active Allergy Reactions Severity Noted [...] 11/10/2020 Active methIMAzole 10 MG Oral Tablet (Tapazole)Indicati ons:Graves disease Take 1.5 Tabs by mouth daily. 45 Tab 5 12/25/2020 Active Propranolol HCl 10 MG Oral Tablet (Inderal)Indicatio ns:Graves disease Take 1 Tab by mouth 3 times a day. 90 Tab 5 12/25/2020 Active ZANTAC 150 MG PO TABS as needed 0 12/25/2020 Discontinued MICROGESTIN FE .04/18 1.5-30 MG-MCG PO TABSIndications:Ro utine follow-up 1 TABLET DAILY 3 Package 4 11/12/2013 12/25/2020 Discontinued documented as of this encounter (statuses [...] Sign Reading Time Taken Comments Blood Pressure 112/78 12/25/2020 8:40 AM EST Pulse 72 12/25/2020 8:40 AM EST Temperature 36.9 °C (98.5 °F) 12/25/2020 8:40 AM ES T Respiratory Rate 16 12/25/2020 8:40 AM EST Oxygen Saturation - - Inhaled Oxygen Concentration - - Weight 93 kg (205 lb 2 oz) 12/25/2020 8:40 AM ES T Height 157.5 cm (5' 2") 12/25/2020 8:40 AM EST Body Mass Index 37.52 12/25/2020 8:40 AM EST documented in this encounter Progress Notes * Hood Issa MD - 12/25/2020 8:46 AM EST 12/25/2020 Author: Hood Issa MD Assessment/Plan Medications Discontinued During This Encounter Medication Reason • MICROGESTIN FE 1.5/30 1.5-30 MG-MCG PO TABS • ZANTAC 150 MG PO TABS Pt is a 35 year old female here for the following problems/concerns: (E05.00) Graves disease (primary encounter diagnosis) Plan: methIMAzole 10 MG Oral Tablet (Tapazole), TSH, T3, FREE, T4, FREE, Propranolol HCl 10 MG Oral Tablet (Inderal), TSH, T3, FREE, T4, FREE (E05.90) Hyperthyroidism Plan: ENDOCRINOLOGY REFERRAL OP We reviewed endo's recommendation in detail Patient and or guardian communicated understanding and agreement of treatment plan including medications and there common side effects if indicated. All questions answered. Follow Up: Return in about 1 month (around 01/22/2021), or if symptoms worsen or fail to improve. CC/HPI: Starr Dove is a 35 year old female Chief Complaint Patient presents with • Test Results pt here to discuss thyroid testing Brief Clinical History Ms. Dove is a 35 year old woman last seen in Family Medicine 3 months ago (09-23-20). She is not duefor eval of any conditions. Nursing Notes: Palma Villanueva LPN 12/25/20 0844 Signed The patient has been properly identified by confirmation of name and date of . Chief Complaint Patient presents with • Test Results pt here to discuss thyroid testing Here to discuss labs and endocrine's recommendations+ fatigue Some anxiety Excessive sweating Problem list: Patient Active Problem List Diagnosis Code • Asthma with severity to be determined J45.909 • ATTN DEFIC NONHYPERACT F98.8 • Other allergic rhinitis J30.89 • EXT ASTHMA W-O STAT ASTH J45.909 • Dysmenorrhea N94.6 Past Medical History: Past Medical History: Diagnosis Date • Allergic rhinitis due to other allergen immunotherapy for 2 years • Asthma, allergic exercise component • Attention deficit disorder without hyperactivity Past Surgical History: Past Surgical History: Procedure Laterality Date • DENTAL SURGERY PROCEDURE NEC 1 wisdom tooth • INCISION OF EARDRUM as child Myringotomy/with tubes REMOVE TONSILS & ADENOIDS, UNDER 12 as child Tonsillectomy/Adenoids,<12 Y/O Medication List: Current Outpatient Medications Medication Sig Dispense Refill • methIMAzole 10 MG Oral Tablet (Tapazole) Take 1.5 Tabs by mouth daily. 45 Tab 5 • Propranolol HCl 10 MG Oral Tablet (Inderal) Take 1 Tab by mouth 3 times a day. 90 Tab 5 • hydrOXYzine HCl 25 MG Oral Tablet Take 1 Tab by mouth every 6 hours as needed for Anxiety. 40 Tab 2 • SUMATRIPTAN SUCCINATE 50 MG PO TABS 1 TABLET 1 TIME ONLY,REPEAT AFTER 2 HR NEEDED 30 Tab 3 • IBUPROFEN 600 MG PO TABS None Entered • ALBUTEROL SULFATE HFA 108 (90 BASE) MCG/ACT IN AERS as needed Allergies: Environmental [pollen] and Peanut oil Problem list, Past Medical History, Family history and social history reviewed and updated in EPIC EHR ROS: No nausea, vomiting or diarrhea. No chest pain or shortness of breath, No fevers, chill or night sweats. All other ROS examined in detail and are negative except as documented in HPI. Vitals: BP 112/78 (BP Site: Left Arm, BP Position: Sitting, BP Cuff Size: Regular) | Pulse 72 | Temp 36.9 °C (98.5 °F) (Tympanic) | Resp 16 | Ht (!) 1.575 m (5' 2") | Wt 93 kg (205 lb 2 oz) | LMP 12/15/2020 | BMI 37.52 kg/m² | BSA 2.02 m² Body mass index is 37.52 kg/m². Exam: General: alert, healthy and no distress Head: Normocephalic, No masses, lesions, tenderness or abnormalities Heart: regular rate & rhythm, no murmurs and no gallops Lungs: chest symmetric with normal AP diameter, no chest deformities noted, no chest wall tenderness, lungs clear to auscultation Abdomen: abdomen soft, non-tender, no masses, no hepatosplenomegaly, no rebound or guarding Extremities: no edema, no clubbing, no cyanosis Assessment and plan located at the top of the page;pso documented in this encounter Nursing Notes * Palma Villanueva LPN - 12/25/2020 8:40 AM EST The patient has been properly identified by confirmation of name and date of . Chief Complaint Patient presents with • Test Results pt here to discuss thyroid testing documented in this encounter Plan of Treatment Upcoming Encounters Date Type Specialty Care Team Description 02/18/2021 Office Visit Family Medicine Jethro Stevens DO 132 [facility] [place] [address] [phone] 03/25/2021 Office Visit Family Medicine Hood Issa MD [address] [address] [phone] Scheduled Orders Name Type Priority Associated Diagnoses Orde r Schedule TSH Lab Routine Graves disease Expected: 01/18/2021 (Approximate), Expires: 12/25/2021 T3, FREE Lab Routine Graves disease Expected: 01/18/2021 (Approximate), Expires: 12/25/2021 T4, FREE Lab Routine Graves disease Expected: 01/18/2021 (Approximate), Expires: 12/25/2021 TSH Lab Routine Graves disease Expected: 12/28/2020 (Approximate), Expires: 12/25/2021 T3, FREE Lab Routine Graves disease Expected: 12/28/2020 (Approximate), Expires: 12/25/2021 T4, FREE Lab Routine Graves disease Expected: 12/28/2020 (Approximate), Expires: 12/25/2021 Scheduled Referrals Name Type Priority Associated Diagnoses Order Schedule ENDOCRINOLOGY REFERRAL OP Referral Within 30 days (routine) Hyperthyroidism Ordered: 12/25/2020 Health Maintenance Due Date Last Done Comments [...] Documents on File Type Date Recorded 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
--- OUTSIDE RECORDS SUMMARY | 2023-08-25 07:43 | External Medical Summary ---
Author Name Unknown Organization K08:[facility] [address] [place] [address] Laboratory Report Ordering Provider Test Date Status SARA RUIZ PAC 07/24/2013 11:01:00-040 0 Final Obs # Observation Date Value ABNL Reference Status Pe rforming Location 1 WBC 07/24/2013 11:20-0400 9.42 4.00-10.80 K/uL Final 2 RBC 07/24/2013 11:20-0400 4.01 3.85-5.15 M/uL Final 3 HGB 07/24/2013 11:20-0400 11.8 L 12.0-14.5 g/dL Final 4 HCT 07/24/2013 11:20-0400 33.7 L 36.0-44.5 % Final 5 MCV 07/24/2013 11:20-0400 84.0 81.5-97.5 fL Final 6 MCH 07/24/2013 11:20-0400 29.4 27.0-34.0 pg Final 7 MCHC 07/24/2013 11:20-0400 35.0 32.0-36.0 g/dL Final 8 RDW 07/24/2013 11:20-0400 13.1 11.5-15.5 % Final 9 PLT 07/24/2013 11:20-0400 258 140-400 K/uL Final 10 MPV 07/24/2013 11:20-0400 9.9 6.6-11.1 fL Final
--- OUTSIDE RECORDS SUMMARY | 2023-08-25 07:43 | External Medical Summary ---
Author Name Unknown Organization K01:[facility], [address] [address] Laboratory Report Ordering Provider Test Date Status SARA RUIZ PAC 08/21/2013 13:00:00-040 0 Final Obs # Observation Date Value ABNL Reference Status Pe rforming Location 1 specimen 08/21/2013 14:02-0400 CLEAN CATCH URINE Final 2 result 08/23/2013 07:32-0400 MULTIPLE MAXI SUGGESTS CONTAMINATION Final 3 report status 08/23/2013 07:32-0400 08/23/2013 FINAL Final
== END 2023-08-16 10:55 | disposition home or self-care (01) | DRG 807 ==
LOC: 4S1 12:40 → 4E2 08-15 01:34